=== PATIENT | female | born 1955 | race Caucasian/White ===

== ENCOUNTER 2017-05-03 07:21 | Day surgery (SDC) | payer OTHER ==
[2017-05-02 12:53] VITALS: BMI 34.0
[~2017-05-03 07:21] MED LIST: LACTATED RINGERS 1,000 ML IV SCH; LIDOCAINE 1% 20 ML VIAL (10MG/ML) FOR IV START INTRADERMA PRN
[2017-05-03 09:37] VITALS: RESP 16; TEMP 98.2
[2017-05-03] MEDS ORDERED: DEXTROSE 50%-WATER 50 ML SYRINGE IVP ONE (10:00)
[2017-05-03] MEDS ORDERED: LIDOCAINE 1% INJ 10MG/ML (20 ML MDV) ONE (10:04)
[2017-05-03] MEDS ORDERED: PROPOFOL 10 MG/ML 20 ML VIAL IV ONE (10:04)
[2017-05-03 10:06] LABS: Glucose,Whole Blood 65 mg/dL (75-99)
--- NOTE | 2017-05-03 10:08 | P.GSHP ---
History of Present Illness H&P Date: 05/03/17 Chief Complaint: GERD, screening colonoscopy This is a 62-year-old female who presents today for EGD and screening colonoscopy. She's had issues with GERD. His colonoscopy was over 10 years ago. Past Medical History Past Medical History: Diabetes Mellitus, GERD/Reflux, Hyperlipidemia, Hypertension, Renal Disease Additional Past Medical History / Comment(s): abdominal pain History of Any Multi-Drug Resistant Organisms: None Reported Past Surgical History: Cholecystectomy Additional Past Surgical History / Comment(s): "left shoulder surgery for a tendon." Past Anesthesia/Blood Transfusion Reactions: No Reported Reaction Smoking Status: Former smoker - Past Family History Mother Family Medical History: Cancer Additional Family Medical History / Comment(s): breast Father Family Medical History: CVA/TIA, Myocardial Infarction (NH) Brother(s) Family Medical History: Congestive Heart Failure (CHF) Additional Family Medical History / Comment(s): CABG Medications and Allergies Home Medications Medication Instructions Recorded Confirmed Type Atorvastatin [Lipitor] 20 mg PO DAILY 05/02/17 05/03/17 History Calcium Polycarbophil [Fibercon] 1 tab PO DAILY 05/02/17 05/03/17 History Fenofibrate,Micronized 200 mg PO DAILY 05/02/17 05/03/17 History [Fenofibrate] Ferrous Sulfate [Feosol] 325 mg PO DAILY 05/02/17 05/03/17 History Omeprazole [Omeprazole] 20 mg PO BID 05/02/17 05/03/17 History Pioglitazone HCl 15 mg PO DAILY 05/02/17 05/03/17 History Allergies Allergy/AdvReac Type Severity Reaction Status Date / Time sulfamethoxazole Allergy Unknown Verified 05/02/17 12:39 [From Bactrim] trimethoprim [From Bactrim] Allergy Unknown Verified 05/02/17 12:39 Surgical - Exam Vital Signs Temp Pulse Resp BP Pulse Ox 98.2 F 103 H 16 130/60 100 05/03/17 09:32 05/03/17 09:32 05/03/17 09:32 05/03/17 09:32 05/03/17 09:32 - General well developed, no distress - Eyes PERRL - ENT normal pinna - Neck no masses - Respiratory normal expansion - Cardiovascular Rhythm: regular - Abdomen Abdomen: soft, non tender Assessment and Plan Assessment: GERD we'll perform EGD. We'll also perform screening colonoscopy.
--- NOTE | 2017-05-03 10:33 | P.OP ---
Date of Procedure: 05/03/17 Preoperative Diagnosis: . GERD Screening colonoscopy Postoperative Diagnosis: Antral gastritis Hiatal hernia Mild esophagitis Normal colon Procedure(s) Performed: EGD Colonoscopy Anesthesia: MAC Surgeon: Reji Rangel Pathology: other (Antrum, esophagus) Condition: stable Disposition: PACU Description of Procedure: PROCEDURE: The patient was placed on the endoscopy table in the lateral position. Digital rectal examination was performed which revealed no abnormalities. s. Flexible colonoscope was then placed in the patient's anus and passed throughout the entire colon. The ileocecal valve was visualized. The cecum, ascending, transverse, descending and sigmoid colon were normal. The rectum was normal as well. There were no masses, polyps or diverticula noted in the entire colon. Next, the gastroscope placed oropharynx passed in the esophagus into the stomach. The scope some placed through the pylorus. The first and second portion of the duodenum appeared normal. Scope was then brought back the antrum and this appeared mildly inflamed. A biopsies was performed. The scope was then retroflexed and remainder stomach appeared normal. There was a hiatal hernia seen. The GE junction was at 38 cm. The distal esophagus appeared mildly inflamed a biopsies performed. The proximal esophagus appeared normal. Scope was withdrawn for patient
[2017-05-03 10:56] LABS: Glucose,Whole Blood 127 mg/dL (75-99)
[2017-05-03 11:12] VITALS: BP 117/59; PULSE 100
== END 2017-05-03 11:44 | disposition home or self-care (01) ==
LOC: ORWHC2ENDO 07:21
PROVIDERS: ATTEND Surgery
DX: Z12.11 Encounter for screening for malignant neoplasm of colon (principal); K21.0 Gastro-esophageal reflux disease with esophagitis; K29.50 Unspecified chronic gastritis without bleeding; K44.9 Diaphragmatic hernia without obstruction or gangrene; I12.9 Hypertensive chronic kidney disease with stage 1 through stage 4 chronic kidney disease, or unspecified chronic kidney disease; E11.22 Type 2 diabetes mellitus with diabetic chronic kidney disease; N18.9 Chronic kidney disease, unspecified; Z79.84 Long term (current) use of oral hypoglycemic drugs; E78.5 Hyperlipidemia, unspecified; Z87.891 Personal history of nicotine dependence; Z79.899 Other long term (current) drug therapy; Z88.2 Allergy status to sulfonamides
CPT/HCPCS: 88305; 88342; 43239; J2001; J2704; G0121

== ENCOUNTER 2017-05-10 08:17 | Inpatient (IN) | payer OTHER ==
[2017-05-10] MEDS ORDERED: ASPIRIN 81 MG PO STA (08:36)
[2017-05-10] MEDS ORDERED: MORPHINE SULFATE 10 MG/ML SYRINGE IV STA (08:36)
[2017-05-10] MEDS ORDERED: NITROGLYCERIN OINT 1 INCH/GM PACKET TOPICAL STA (08:36)
--- NOTE | 2017-05-10 08:40 | ED ---
General Adult HPI <Joao Vieira - Last Filed: 05/10/17 10:36> - General Source: patient, RN notes reviewed, old records reviewed Mode of arrival: wheelchair Limitations: no limitations <Antonio Burgos - Last Filed: 05/10/17 11:11> - General Chief complaint: Chest Pain Stated complaint: norma, took 3 nitro Time Seen by Provider: 05/10/17 08:28 - History of Present Illness Initial comments: Patient is a 62-year-old female who presents emergency room today with a chief complaint of chest pain off-and-on over the last week. She does admit that she began having chest pain again last night. She states she was at her family doctor yesterday was actually prescribe her some nitro. She states she woke one nitro last night was able go to bed. States woke up this morning again with increased chest pain. States she's taken total of 3 nitro with no relief of the symptoms. Was advised if the pain was unresolved with the nitro that she should come to the hospital. Patient states that it as a "sharp" type pain located in the chest feels it radiate up into her neck both sides. Patient currently rates it a 10/10 along with a headache. Patient denies any difficult. Her symptoms. Patient does admit to a family history of cardiac disease. Patient denies any recent fever, chills, shortness of breath, chest pain, back pain, abdominal pain, nausea or vomiting, numbness or tingling, dysuria or hematuria, constipation or diarrhea, headaches or visual changes, or any other complaints. (Antonio Burgos) - Related Data Home Medications Medication Instructions Recorded Confirmed Fenofibrate,Micronized 200 mg PO DAILY 05/02/17 05/10/17 [Fenofibrate] Ferrous Sulfate [Feosol] 325 mg PO DAILY 05/02/17 05/10/17 Pioglitazone HCl 15 mg PO DAILY 05/02/17 05/10/17 Aspirin/Acetaminophen/Caffeine 1 tab PO BID PRN 05/10/17 05/10/17 [Excedrin Migraine Caplet] Cyclobenzaprine [Flexeril] 10 mg PO HS 05/10/17 05/10/17 Lisinopril [Zestril] 5 mg PO DAILY 05/10/17 05/10/17 Metaxalone [Skelaxin] 800 mg PO TID PRN 05/10/17 05/10/17 Nitroglycerin [Nitroglycerin] 0.4 mg PO Q5M PRN 05/10/17 05/10/17 Sucralfate [Carafate] 1 gram PO BID 05/10/17 05/10/17 buPROPion HCL [Wellbutrin SR] 150 mg PO HS 05/10/17 05/10/17 Allergies Allergy/AdvReac Type Severity Reaction Status Date / Time sulfamethoxazole Allergy Unknown Verified 05/10/17 08:57 [From Bactrim] trimethoprim [From Bactrim] Allergy Unknown Verified 05/10/17 08:57 Review of Systems ROS Other: All systems not noted in ROS Statement are negative. <Joao Vieira - Last Filed: 05/10/17 10:36> ROS Other: All systems not noted in ROS Statement are negative. <Antonio Burgos - Last Filed: 05/10/17 11:11> ROS Statement: Those systems with pertinent positive or pertinent negative responses have been documented in the HPI. Past Medical History Past Medical History: Diabetes Mellitus, GERD/Reflux, Hyperlipidemia, Hypertension, Renal Disease Additional Past Medical History / Comment(s): abdominal pain History of Any Multi-Drug Resistant Organisms: None Reported Past Surgical History: Cholecystectomy Additional Past Surgical History / Comment(s): "left shoulder surgery for a tendon." Past Anesthesia/Blood Transfusion Reactions: No Reported Reaction Past Psychological History: No Psychological Hx Reported Smoking Status: Former smoker Past Alcohol Use History: None Reported Past Drug Use History: None Reported - Past Family History Mother Family Medical History: Cancer Additional Family Medical History / Comment(s): breast Father Family Medical History: CVA/TIA, Myocardial Infarction (MD) Brother(s) Family Medical History: Congestive Heart Failure (CHF) Additional Family Medical History / Comment(s): CABG <Antonio Burgos - Last Filed: 05/10/17 11:11> General Exam <Joao Vieira - Last Filed: 05/10/17 10:36> Limitations: no limitations <Antonio Burgos - Last Filed: 05/10/17 11:11> - General Exam Comments Initial Comments: General: The patient is awake and alert, in no distress, and does not appear acutely ill. Eye: Pupils are equal, round and reactive to light, extra-ocular movements are intact. No nystagmus. There is normal conjunctiva bilaterally. No signs of icterus. Ears, nose, mouth and throat: There are moist mucous membranes and no oral lesions. Neck: The neck is supple, there is no tenderness or JVD. Cardiovascular: There is a regular rate and rhythm. No murmur, rub or gallop is appreciated. Respiratory: Lungs are clear to auscultation, respirations are non-labored, breath sounds are equal. No wheezes, stridor, rales, or rhonchi. Patient reproduced on palpation to the anterior chest wall. Gastrointestinal: Soft, non-distended, non-tender abdomen without masses or organomegaly noted. There is no rebound or guarding present. No CVA tenderness. Bowel sounds are unremarkable. Musculoskeletal: Normal ROM, no tenderness. Strength 5/5. Sensation intact. Pulses equal bilaterally 2+. Neurological: A&O x 3. CN II-XII intact, There are no obvious motor or sensory deficits. Coordination appears grossly intact. Speech is normal. Skin: Skin is warm and dry and no rashes or lesions are noted. Psychiatric: Cooperative, appropriate mood & affect, normal judgment. (Antonio Burgos) Course <Joao Vieira - Last Filed: 05/10/17 10:36> <Antonio Burgos - Last Filed: 05/10/17 11:11> Vital Signs 05/10/17 05/10/17 05/10/17 08:22 09:01 09:26 Temperature 97.7 F Pulse Rate 88 76 Respiratory 18 20 18 Rate Blood Pressure 135/63 130/60 O2 Sat by Pulse 99 99 Oximetry 05/10/17 05/10/17 10:30 11:00 Temperature Pulse Rate 82 82 Respiratory 18 18 Rate Blood Pressure 140/66 146/70 O2 Sat by Pulse 100 100 Oximetry - Reevaluation(s) Reevaluation #1: 05/10/17 10:36 PA supervision: I did do a [id number] evaluation of this patient. Patient does present with complaint claims intermittent chest pain and does seem to get relieved with nitroglycerin. Additionally she does have a strong family history of heart disease with multiple family members. Patient's lungs are clear heart regular with no murmurs at this time no evidence of any peripheral vascular abnormalities at this exam. Case will be discussed with Dr. Owens the patient will be admitted. (Joao Vieira) EKG Findings - EKG Comments: EKG Findings:: EKG performed at 0837: A 12-lead EKG was performed and interpreted by me as showing the following: Rate is 78, and rhythm is normal sinus. There are normal QRS complexes and normal R-wave progression. ST segments have no elevation or depression, and WI segments appear normal. <Antonio Burgos - Last Filed: 05/10/17 11:11> Medical Decision Making - Lab Data Result diagrams: 05/10/17 08:50 05/10/17 08:50 <Joao Vieira - Last Filed: 05/10/17 10:36> - Lab Data Result diagrams: 05/10/17 08:50 05/10/17 08:50 <Antonio Burgos - Last Filed: 05/10/17 11:11> - Lab Data Lab Results 05/10/17 05/10/17 05/10/17 Range/Units 08:50 08:50 08:50 WBC 3.5 L (3.8-10.6) k/uL RBC 3.56 L (3.80-5.40) m/uL Hgb 11.4 (11.4-16.0) gm/dL Hct 36.0 (34.0-46.0) % MCV 101.1 H (80.0-100.0) fL MCH 31.9 (25.0-35.0) pg MCHC 31.5 (31.0-37.0) g/dL RDW 14.0 (11.5-15.5) % Plt Count 252 (150-450) k/uL Neutrophils % 62 % Lymphocytes % 24 % Monocytes % 8 % Eosinophils % 3 % Basophils % 1 % Neutrophils # 2.2 (1.3-7.7) k/uL Lymphocytes # 0.8 L (1.0-4.8) k/uL Monocytes # 0.3 (0-1.0) k/uL Eosinophils # 0.1 (0-0.7) k/uL Basophils # 0.0 (0-0.2) k/uL Macrocytosis Slight PT (9.0-12.0) sec INR (<1.2) APTT (22.0-30.0) sec Sodium 142 (137-145) mmol/L Potassium 4.6 (3.5-5.1) mmol/L Chloride 109 H (98-107) mmol/L Carbon Dioxide 24 (22-30) mmol/L Anion Gap 9 mmol/L BUN 33 H (7-17) mg/dL Creatinine 1.44 H (0.52-1.04) mg/dL Est GFR (MDRD) Af Amer 45 (>60 ml/min/1.73 sqM) Est GFR (MDRD) Non-Af 37 (>60 ml/min/1.73 sqM) Glucose 108 H (74-99) mg/dL Calcium 9.8 (8.4-10.2) mg/dL Magnesium 1.1 L (1.6-2.3) mg/dL Total Bilirubin 0.5 (0.2-1.3) mg/dL AST 23 (14-36) U/L ALT 35 (9-52) U/L Alkaline Phosphatase 35 L (38-126) U/L Total Creatine Kinase 120 (30-135) U/L CK-MB (CK-2) 1.1 (0.0-2.4) ng/mL CK-MB (CK-2) Rel Index 0.9 Troponin I <0.012 (0.000-0.034) ng/mL Total Protein 6.4 (6.3-8.2) g/dL Albumin 3.9 (3.5-5.0) g/dL 05/10/17 Range/Units 08:50 WBC (3.8-10.6) k/uL RBC (3.80-5.40) m/uL Hgb (11.4-16.0) gm/dL Hct (34.0-46.0) % MCV (80.0-100.0) fL MCH (25.0-35.0) pg MCHC (31.0-37.0) g/dL RDW (11.5-15.5) % Plt Count (150-450) k/uL Neutrophils % % Lymphocytes % % Monocytes % % Eosinophils % % Basophils % % Neutrophils # (1.3-7.7) k/uL Lymphocytes # (1.0-4.8) k/uL Monocytes # (0-1.0) k/uL Eosinophils # (0-0.7) k/uL Basophils # (0-0.2) k/uL Macrocytosis PT 11.4 (9.0-12.0) sec INR 1.1 (<1.2) APTT 23.1 (22.0-30.0) sec Sodium (137-145) mmol/L Potassium (3.5-5.1) mmol/L Chloride (98-107) mmol/L Carbon Dioxide (22-30) mmol/L Anion Gap mmol/L BUN (7-17) mg/dL Creatinine (0.52-1.04) mg/dL Est GFR (MDRD) Af Amer (>60 ml/min/1.73 sqM) Est GFR (MDRD) Non-Af (>60 ml/min/1.73 sqM) Glucose (74-99) mg/dL Calcium (8.4-10.2) mg/dL Magnesium (1.6-2.3) mg/dL Total Bilirubin (0.2-1.3) mg/dL AST (14-36) U/L ALT (9-52) U/L Alkaline Phosphatase (38-126) U/L Total Creatine Kinase (30-135) U/L CK-MB (CK-2) (0.0-2.4) ng/mL CK-MB (CK-2) Rel Index Troponin I (0.000-0.034) ng/mL Total Protein (6.3-8.2) g/dL Albumin (3.5-5.0) g/dL Disposition <Joao Vieira - Last Filed: 05/10/17 10:36> Time of Disposition: 10:30 <Antonio Burgos - Last Filed: 05/10/17 11:11> Clinical Impression: Chest pain Disposition: [facility]MITT[facility] Condition: Stable Referrals: Karen Snowden DO [Primary Care Provider] - 1-2 days
[2017-05-10 09:09] LABS: Basophils % (A) 1 %; CH 31.3; CHCM 31.1; Eosinophils # (A) 0.1 k/uL (0-0.7); Eosinophils % (A) 3 %; HDW 2.05; HGB 11.4 gm/dL (11.4-16.0); Luc # (Auto) 0.06; Luc % (Auto) 2; Lymphocytes # (A) 0.8 k/uL (1.0-4.8); Lymphocytes % (A) 24 %; MCH 31.9 pg (25.0-35.0); MCHC 31.5 g/dL (31.0-37.0); MCV 101.1 fL (80.0-100.0); Macrocytosis Slight; Mean Platelet Volume 7.7; Monocytes # (A) 0.3 k/uL (0-1.0); Monocytes % (A) 8 %; Neutrophils # (A) 2.2 k/uL (1.3-7.7); Neutrophils % (A) 62 %; RBC 3.56 m/uL (3.80-5.40); WBC 3.5 k/uL (3.8-10.6); WBC (Perox) 3.77
[2017-05-10 09:19] LABS: Calcium 9.8 mg/dL (8.4-10.2); INR 1.1 (<1.2); Magnesium 1.1 mg/dL (1.6-2.3); Partial Thromboplastin Time 23.1 sec (22.0-30.0); Potassium 4.6 mmol/L (3.5-5.1); Prothrombin Time 11.4 sec (9.0-12.0); Total Bilirubin 0.5 mg/dL (0.2-1.3); Total Protein 6.4 g/dL (6.3-8.2)
--- NOTE | 2017-05-10 09:19 | XR ---
EXAMINATION TYPE: XR chest 2V DATE OF EXAM: 05/10/2017 COMPARISON: Prior exam 04/07/2017 HISTORY: Chest pain TECHNIQUE: Frontal and lateral views of the chest are obtained. FINDINGS: There are overlying cardiac leads. Patient is rotated, there may be scoliotic curvature to the thoracic spine. There is no focal air space opacity, pleural effusion, or pneumothorax seen. The cardiac silhouette size is within normal limits. The osseous structures are intact. IMPRESSION: No acute cardiopulmonary process.
[2017-05-10 09:44] LABS: Creatine Kinase 120 U/L (30-135)
[2017-05-10 09:57] LABS: Creatine Kinase MB 1.1 ng/mL (0.0-2.4); Troponin I <0.012 ng/mL (0.000-0.034)
[2017-05-10] MEDS ORDERED: HEPARIN SODIUM,PORCINE 5,000 UNIT/ML 1 ML VIAL IV ONE (11:09)
[2017-05-10] MEDS ORDERED: SODIUM CHLORIDE 0.9% 1,000 ML IV ONE (11:09)
[2017-05-10] MEDS: HEPARIN SODIUM,PORCINE/D5W PMX 25,000 UNIT in DEXTROSE/WATER 1 500ML.BAG IV SCH (11:39)
[2017-05-10] MEDS: MAGNESIUM SULFATE-D5W PMX 1 GM in DEXTROSE/WATER 1 100ML.BAG IVPB SCH ×2 (13:56→15:01)
[2017-05-10] MEDS: NITROGLYCERIN OINT 1 INCH/GM PACKET TOPICAL SCH ×2 (13:59→18:13)
--- NOTE | 2017-05-10 13:59 | P.HPIM ---
History of Present Illness H&P Date: 05/10/17 Chief Complaint: Intermittent chest pain 1 week This is a 62-year-old female, patient of [facility]. She has a known past medical history hypertension, diabetes mellitus, hyperlipidemia, chronic kidney disease, GERD, former smoker, and family history of heart disease. She has 2 brothers who had heart attacks one was fatal. And both her mother and father have a history of heart disease. Patient presents to the emergency room with complaints of intermittent chest pain for the past week may be in to 2 weeks. When asked where the pain is located patient points to the epigastric area and reports that the pain goes up into the chest neck in all into the head. She reports that her head feels like it's been explode. She says she has checked her blood pressures at home and reports that they have not been high. She takes lisinopril at home. She was given nitro by the PA at her PCP office. Patient took a nitro last night and then took 2 this morning. She had some relief but was still having more pain than usual. Came into the emergency room for further evaluation and treatment. The first troponin was negative. EKG shows a normal sinus rhythm. She was started on IV heparin in the emergency room. Cardiology has been consulted. Reports her last stress test was about 10 years ago and was told that it was normal. Also, patient had a recent EGD and colonoscopy for acid reflux symptoms. Results show antral gastritis, hiatal hernia, mild esophagitis and a normal colon. Procedures were completed with Dr. Rangel on 05/03/2017. Patient also admits to having some shortness of breath and nausea with her chest pain. Denies any diaphoresis. Denies any actual vomiting. Denies any dizziness or lightheadedness. Denies any significant bowel changes. Denies any urinary symptoms. Reports that symptoms do not really worsen with food. 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 History of Any Multi-Drug Resistant Organisms: None Reported Past Surgical History: Cholecystectomy, Orthopedic Surgery Additional Past Surgical History / Comment(s): 04/2017 EGD/colonoscopy, past EGD /colonoscopy, "left shoulder surgery for a tendon." Past Anesthesia/Blood Transfusion Reactions: No Reported Reaction Smoking Status: Former smoker - Past Family History Mother Family Medical History: Cancer Additional Family Medical History / Comment(s): breast cancer, pacemaker. Father Family Medical History: CVA/TIA, Myocardial Infarction (HI) Additional Family Medical History / Comment(s): Pt does not know at what age father had HI Brother(s) Family Medical History: Congestive Heart Failure (CHF) Additional Family Medical History / Comment(s): CABG Medications and Allergies Home Medications Medication Instructions Recorded Confirmed Type Fenofibrate,Micronized 200 mg PO DAILY 05/02/17 05/10/17 History [Fenofibrate] Ferrous Sulfate [Feosol] 325 mg PO DAILY 05/02/17 05/10/17 History Pioglitazone HCl 15 mg PO DAILY 05/02/17 05/10/17 History Aspirin/Acetaminophen/Caffeine 1 tab PO BID PRN 05/10/17 05/10/17 History [Excedrin Migraine Caplet] Cyclobenzaprine [Flexeril] 10 mg PO HS 05/10/17 05/10/17 History Lisinopril [Zestril] 5 mg PO DAILY 05/10/17 05/10/17 History Metaxalone [Skelaxin] 800 mg PO TID PRN 05/10/17 05/10/17 History Nitroglycerin [Nitroglycerin] 0.4 mg PO Q5M PRN 05/10/17 05/10/17 History Sucralfate [Carafate] 1 gram PO BID 05/10/17 05/10/17 History buPROPion HCL [Wellbutrin SR] 150 mg PO HS 05/10/17 05/10/17 History Allergies Allergy/AdvReac Type Severity Reaction Status Date / Time sulfamethoxazole Allergy Unknown Verified 05/10/17 08:57 [From Bactrim] trimethoprim [From Bactrim] Allergy Unknown Verified 05/10/17 08:57 Physical Exam Vitals: Vital Signs Temp Pulse Resp BP Pulse Ox 05/10/17 12:57 82 18 152/67 99 05/10/17 12:45 97.4 F L 84 18 152/67 97 11/16/17 11:58 79 18 164/72 98 05/10/17 11:00 82 18 146/70 100 05/10/17 10:30 82 18 140/66 100 05/10/17 09:26 76 18 130/60 99 05/10/17 09:01 20 05/10/17 08:22 97.7 F 88 18 135/63 99 Intake and Output 05/09/17 05/10/17 05/10/17 22:59 06:59 14:59 Other: Weight 81.647 kg Patient Weight 05/11/17 06:59 Weight 81.647 kg Head normocephalic Neck supple Lungs clear to auscultation bilaterally no wheezing or crackles Heart regular rate and rhythm S1-S2, no rub or gallop. Tenderness with palpation of the chest wall. Tenderness of the epigastric area Abdomen is soft tenderness epigastric area nondistended positive bowel sounds no hepatosplenomegaly Extremities no edema Neuro alert and orientated to 3 Results CBC & Chem 7: 05/10/17 08:50 05/10/17 08:50 Labs: Abnormal Lab Results - Last 24 Hours (Table) 05/10/17 05/10/17 Range/Units 08:50 08:50 WBC 3.5 L (3.8-10.6) k/uL RBC 3.56 L (3.80-5.40) m/uL MCV 101.1 H (80.0-100.0) fL Lymphocytes # 0.8 L (1.0-4.8) k/uL Chloride 109 H (98-107) mmol/L BUN 33 H (7-17) mg/dL Creatinine 1.44 H (0.52-1.04) mg/dL Glucose 108 H (74-99) mg/dL Magnesium 1.1 L (1.6-2.3) mg/dL Alkaline Phosphatase 35 L (38-126) U/L Thrombosis Risk Factor Assmnt - Choose All That Apply Any of the Below Risk Factors Present?: Yes Each Factor Represents 1 point: Obesity (BMI >25) Other Risk Factors: Yes Each Risk Factor Represents 2 Points: Age 61-74 years Other congenital or acquired thrombophilia - If yes, enter type in comment: No Thrombosis Risk Factor Assessment Total Risk Factor Score: 3 Thrombosis Risk Factor Assessment Level: Moderate Risk Assessment and Plan Assessment: 1. Chest pain: First troponin is negative. EKG showing a normal sinus rhythm. Patient has been placed on IV heparin and full aspirin. Cardiology has been consulted. Patient does have cardiac risk factors with hyperlipidemia, hypertension, diabetes mellitus, former smoker and family history of heart disease. However, patient does have reproducible chest pain with palpation of the chest wall also tenderness in the epigastric area. Symptoms could be musculoskeletal. Will have patient evaluated by cardiology service and await their further recommendations. 2. Epigastric pain: Check amylase and lipase. Patient had recent EGD and colonoscopy on 05/13/[address] Rangel. Results showed antral gastritis, hiatal hernia and mild esophagitis with a normal colonoscopy. I will start patient on Protonix 40 mg daily. Monitor symptoms. 3. Essential hypertension: Restart patient's lisinopril 5 mg daily now 4. Hypomagnesemia: Give magnesium sulfate 2 g 1. Repeat magnesium level in a.m. 5. Hyperlipidemia 6. GERD: Continue Protonix 7. Diabetes mellitus type 2: Hold oral hypoglycemic. Add Humalog sliding scale coverage. Check hemoglobin A1c 8. Chronic kidney disease stage 3 GI prophylaxis Protonix and DVT prophylaxis IV heparin Time with Patient: Greater than 30 (Greater than 50% of the total time spent in counseling and coordination of care.I performed an examination of the patient and discussed their management with the physician Director Of Broadcast. I have reviewed the Physician Director Of [employer]cast's notes and agree with the documented findings and plan of care)
[2017-05-10] MEDS ORDERED: CYCLOBENZAPRINE 10 MG TAB PO PRN (14:00)
--- NOTE | 2017-05-10 14:07 | P.CRDCN ---
History of Present Illness Consult date: 05/10/17 History of present illness: This is a 62-year-old female with past medical history significant for diabetes mellitus, gastroesophageal reflux disease, hyperlipidemia, hypertension and renal disease. She denies history of coronary artery disease and has never seen a district commercial superintendent as an outpatient for any reason. She recalls having a stress test approximately 10+ years ago in the hospital. Those records have been reviewed. We have been asked to see her in consultation for complaints of chest heaviness that started yesterday morning. She woke up at her usual time with a headache that was similar to migraines she typically gets. As the day went on she started having heaviness in her chest, mid-sternal region with radiation to the back and neck at times. The pain persisted all day until she went to her already scheduled well visit with her PCP. At that time they ordered an outpatient stress echocardiogram and gave her a prescription for SL nitroglycerin. She woke up again this morning with the same pain and tried taking the nitro x3 with no relief. She had associated nausea and vomited twice. She denies associated shortness of breath, dizziness, palpitations or diaphoresis. At the time of my exam she continues to c/o ongoing chest heaviness. The pain is reproducible and is worse in the epigastric region. She also says she has been seeing a disease case manager for evaluation of chronic abdominal pain and bloating. She underwent a colonoscopy last week, results in the computer reveal hiatal hernia and chronic esophagitis and gastritis. She is a former smoker, quit 10 years ago and has significant family history of heart disease with mother, father and both brothers having had heart premature heart disease. EKG reveals sinus mechanism with no acute ST or T-wave abnormalities. Chest xray negative for an acute cardiopulmonary process. Cardiac enzymes negative x1. Hgb 11.4, plt 252, BUN 33, Cr 1.44, potassium 4.6, magnesium 1.1. Blood pressure 152/67 with heart rate 84. Current cardiac medications include lisinopril 5 mg daily and fenofibrate 200 mg daily. Review of Systems CONSTITUTIONAL: Denies fever. Denies chills. EYES: Denies blurred vision. Denies vision changes. Denies eye pain. EARS, NOSE, MOUTH & THROAT: Complains of headache. Denies sore throat. Denies ear pain. CARDIOVASCULAR: Complains of midsternal and epigastric heaviness and tenderness. Denies shortness of breath. Denies orthopnea. Denies PND. Denies palpitations. RESPIRATORY: Complains of chronic dry cough. GASTROINTESTINAL: Denies abdominal pain. Denies diarrhea. Denies constipation. Complains of nausea with one episode of vomiting. MUSCULOSKELETAL: Denies myalgias. INTEGUMENTARY: Denies pruitis. Denies rash. NEUROLOGIC: Denies numbness. Denies tingling. Denies weakness. PSYCHIATRIC: Denies anxiety. Denies depression. ENDOCRINE: Denies fatigue. Denies weight change. Denies polydipsia. Denies polyurina. GENITOURINARY: Denies burning, hematuria or urgency with micturation. HEMATOLOGIC: Denies history of anemia. Denies bleeding. 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 History of Any Multi-Drug Resistant Organisms: None Reported Past Surgical History: Cholecystectomy, Orthopedic Surgery Additional Past Surgical History / Comment(s): 04/2017 EGD/colonoscopy, past EGD /colonoscopy, "left shoulder surgery for a tendon." Past Anesthesia/Blood Transfusion Reactions: No Reported Reaction Smoking Status: Former smoker - Past Family History Mother Family Medical History: Cancer Additional Family Medical History / Comment(s): breast cancer, pacemaker. Father Family Medical History: CVA/TIA, Myocardial Infarction ([place]) Additional Family Medical History / Comment(s): Pt does not know at what age father had [place] Brother(s) Family Medical History: Congestive Heart Failure (CHF) Additional Family Medical History / Comment(s): CABG Medications and Allergies Home Medications Medication Instructions Recorded Confirmed Type Fenofibrate,Micronized 200 mg PO DAILY 05/02/17 05/10/17 History [Fenofibrate] Ferrous Sulfate [Feosol] 325 mg PO DAILY 05/02/17 05/10/17 History Pioglitazone HCl 15 mg PO DAILY 05/02/17 05/10/17 History Aspirin/Acetaminophen/Caffeine 1 tab PO BID PRN 05/10/17 05/10/17 History [Excedrin Migraine Caplet] Cyclobenzaprine [Flexeril] 10 mg PO HS 05/10/17 05/10/17 History Lisinopril [Zestril] 5 mg PO DAILY 05/10/17 05/10/17 History Metaxalone [Skelaxin] 800 mg PO TID PRN 05/10/17 05/10/17 History Nitroglycerin [Nitroglycerin] 0.4 mg PO Q5M PRN 05/10/17 05/10/17 History Sucralfate [Carafate] 1 gram PO BID 05/10/17 05/10/17 History buPROPion HCL [Wellbutrin SR] 150 mg PO HS 05/10/17 05/10/17 History Allergies Allergy/AdvReac Type Severity Reaction Status Date / Time sulfamethoxazole Allergy Unknown Verified 05/10/17 08:57 [From Bactrim] trimethoprim [From Bactrim] Allergy Unknown Verified 05/10/17 08:57 Physical Exam Vitals: Vital Signs Temp Pulse Resp BP Pulse Ox 05/10/17 12:57 82 18 152/67 99 05/10/17 12:45 97.4 F L 84 18 152/67 97 05/10/17 11:58 79 18 164/72 98 05/10/17 11:00 82 18 146/70 100 05/10/17 10:30 82 18 140/66 100 05/10/17 09:26 76 18 130/60 99 05/10/17 09:01 20 05/10/17 08:22 97.7 F 88 18 135/63 99 Intake and Output 05/09/17 05/10/17 05/10/17 22:59 06:59 14:59 Other: Weight 81.647 kg Patient Weight 05/11/17 06:59 Weight 81.647 kg GENERAL: This is a 62-year-old female in no apparent distress at the time of my examination. Obese. HEENT: Head is atraumatic, normocephalic. Pupils are equal, round. Sclerae anicteric. Conjunctivae are clear. Mucous membranes of the mouth are moist. Neck is supple. There is no jugular venous distention. No carotid bruit is heard. LUNGS: Clear to auscultation no wheezes, rales or rhonchi. Positive epigastric and midsternal chest wall tenderness is noted on palpation. No change in discomfort with deep breathing. HEART: Regular rate and rhythm without murmurs, rubs or gallops. S1 and S2 heard. ABDOMEN: Soft, epigastric tenderness. Bowel sounds are heard. No organomegaly noted. EXTREMITIES: 2+ peripheral pulses with no evidence of peripheral edema and no calf tenderness noted. NEUROLOGIC: Patient is awake, alert and oriented x3. Results 05/10/17 08:50 05/10/17 08:50 Cardiac Enzymes 05/10/17 05/10/17 Range/Units 08:50 08:50 AST 23 (14-36) U/L CK-MB (CK-2) 1.1 (0.0-2.4) ng/mL Troponin I <0.012 (0.000-0.034) ng/mL Coagulation 05/10/17 Range/Units 08:50 PT 11.4 (9.0-12.0) sec APTT 23.1 (22.0-30.0) sec CBC 05/10/17 Range/Units 08:50 WBC 3.5 L (3.8-10.6) k/uL RBC 3.56 L (3.80-5.40) m/uL Hgb 11.4 (11.4-16.0) gm/dL Hct 36.0 (34.0-46.0) % Plt Count 252 (150-450) k/uL Comprehensive Metabolic Panel 05/10/17 Range/Units 08:50 Sodium 142 (137-145) mmol/L Potassium 4.6 (3.5-5.1) mmol/L Chloride 109 H (98-107) mmol/L Carbon Dioxide 24 (22-30) mmol/L BUN 33 H (7-17) mg/dL Creatinine 1.44 H (0.52-1.04) mg/dL Glucose 108 H (74-99) mg/dL Calcium 9.8 (8.4-10.2) mg/dL AST 23 (14-36) U/L ALT 35 (9-52) U/L Alkaline Phosphatase 35 L (38-126) U/L Total Protein 6.4 (6.3-8.2) g/dL Albumin 3.9 (3.5-5.0) g/dL Current Medications Generic Name Dose Route Start Last Admin Trade Name Freq PRN Reason Stop Dose Admin Aspirin 325 mg 05/11/17 09:00 Aspirin PO DAILY [facility] Bupropion HCl 150 mg 05/10/17 21:00 Wellbutrin Sr PO HS [facility] Cyclobenzaprine HCl 10 mg 05/10/17 21:00 Flexeril PO HS MARK Cyclobenzaprine HCl 10 mg 05/10/17 14:00 Flexeril PO BID PRN FOOT PAIN Fenofibrate 160 mg 05/11/17 09:00 Lofibra PO DAILY [facility] Ferrous Sulfate 325 mg 05/11/17 09:00 Feosol PO DAILY [facility] Heparin Sodium/Dextrose 25,000 500 mls @ 19.59 mls/hr 05/10/17 11:15 11:39 unit/ IV Solution IV 12 units/kg/hr .Q24H MARK 19.59 mls/hr Protocol Administration 12 UNITS/KG/HR Sodium Chloride 1,000 mls @ 75 mls/hr 05/10/17 11:09 05/10/17 11:38 Saline 0.9% IV 05/11/17 00:28 20 mls/hr .[id number] ONE Administration Magnesium Sulfate/Dextrose 1 100 mls @ 100 mls/hr 05/10/17 13:00 gm/ IV Solution IVPB 05/10/17 14:59 Q1H MARK Lisinopril 5 mg 05/11/17 09:00 Zestril PO DAILY [facility] Nitroglycerin 1 inch 05/10/17 13:00 Nitro-Bid Oint TOPICAL Q6HR [facility] Sucralfate 1 gm 05/10/17 21:00 Carafate PO BID [facility] Intake and Output 05/09/17 05/10/17 05/10/17 22:59 06:59 14:59 Other: Weight 81.647 kg Patient Weight 05/11/17 06:59 Weight 81.647 kg 05/10/17 08:50 05/10/17 08:50 Assessment and Plan Assessment: ASSESSMENT 1. Unstable angina, atypical presentation with multiple risk factors. HTN, DM, history of tobacco use, family history, obesity. 2. Essential hypertension 3. Hyperlipidemia 4. Chronic kidney disease, stage 3a 5. Diabetes mellitus 6. Obesity, BMI 34 7. Hypomagnesemia, 1.1 currently being replaced per medicine team PLAN Continue to obtain serial EKG's and cardiac enzymes. Heparin should be continued until an acute coronary event has been ruled out. Obtain 2D echocardiogram and doppler study to assess cardiac structure and function. Normal saline infusion at 75 cc/hr. Replace magnesium per protocol. Maalox 30 ml x1 now. Repeat basic metabolic panel and magnesium in the morning. If an acute coronary event has been ruled out we will proceed with a lexiscan stress test tomorrow. She should be kept NPO after midnight tonight. Further recommendations will be based upon clinical course. Thank you kindly for this consultation. Nurse Practitioner note has been reviewed, I agree with a documented findings and plan of care. Patient was seen and examined.
[2017-05-10] MEDS ORDERED: MAG HYDROX/AL HYDROX/SIMETH 30 ML CUP PO ONE (14:15)
[2017-05-10] MEDS: PANTOPRAZOLE 40 MG TABLET PO SCH (14:37)
[2017-05-10] MEDS: LISINOPRIL 5 MG TAB PO SCH (14:37)
[2017-05-10 14:58] LABS: Glucose,Whole Blood 156 mg/dL (75-99)
[2017-05-10] MEDS: NITROGLYCERIN SL TABS 0.4 MG TAB SUBLINGUAL ONE ×3 (15:02→15:15)
[2017-05-10 15:13] LABS: Amylase 31 U/L (30-110)
[2017-05-10 15:21] LABS: Creatine Kinase 96 U/L (30-135)
[2017-05-10 15:25] VITALS: BMI 34.0
[2017-05-10 15:35] LABS: Creatine Kinase MB 0.8 ng/mL (0.0-2.4); Troponin I <0.012 ng/mL (0.000-0.034)
[2017-05-10] MEDS: INSULIN ASPART 100 UNIT/ML 1 ML 10 ML VIAL SQ SCH ×2 (16:59→22:40)
[2017-05-10 17:31] LABS: Glucose,Whole Blood 190 mg/dL (75-99)
[2017-05-10] MEDS ORDERED: HYDROmorphone 0.5 MG/0.5 ML SYRINGE IVP PRN (18:54)
[2017-05-10 20:41] LABS: Glucose,Whole Blood 114 mg/dL (75-99)
[2017-05-10 21:12] LABS: Creatine Kinase 83 U/L (30-135)
[2017-05-10 21:24] LABS: Creatine Kinase MB 0.7 ng/mL (0.0-2.4); Troponin I <0.012 ng/mL (0.000-0.034)
[2017-05-10] MEDS: CYCLOBENZAPRINE 10 MG TAB PO SCH (22:40)
[2017-05-10] MEDS: buPROPion SR 150 MG TABLET.ER PO SCH (22:40)
[2017-05-10] MEDS: SUCRALFATE 1 GM TAB PO SCH (22:40)
[2017-05-11 05:56] LABS: Glucose,Whole Blood 98 mg/dL (75-99)
[2017-05-11] MEDS: INSULIN ASPART 100 UNIT/ML 1 ML 10 ML VIAL SQ SCH ×4 (06:17→21:35)
[2017-05-11] MEDS: NITROGLYCERIN OINT 1 INCH/GM PACKET TOPICAL SCH ×2 (06:17→12:24)
[2017-05-11 06:28] LABS: Basophils % (A) 1 %; CHCM 30.6; Eosinophils # (A) 0.1 k/uL (0-0.7); Eosinophils % (A) 2 %; HCT 33.4 % (34.0-46.0); HDW 2.02; HGB 10.4 gm/dL (11.4-16.0); Hypochromasia Slight; Luc # (Auto) 0.08; Luc % (Auto) 2; Lymphocytes # (A) 0.8 k/uL (1.0-4.8); Lymphocytes % (A) 19 %; MCH 31.6 pg (25.0-35.0); MCHC 31.1 g/dL (31.0-37.0); MCV 101.8 fL (80.0-100.0); Macrocytosis Slight; Mean Platelet Volume 7.8; Monocytes # (A) 0.2 k/uL (0-1.0); Monocytes % (A) 6 %; Neutrophils # (A) 2.9 k/uL (1.3-7.7); Neutrophils % (A) 71 %; RBC 3.28 m/uL (3.80-5.40); RDW 14.2 % (11.5-15.5); WBC 4.1 k/uL (3.8-10.6); WBC (Perox) 4.44
[2017-05-11] MEDS: PANTOPRAZOLE 40 MG TABLET PO SCH (07:01)
[2017-05-11 07:15] LABS: Calcium 9.3 mg/dL (8.4-10.2); Magnesium 1.9 mg/dL (1.6-2.3); Potassium 4.7 mmol/L (3.5-5.1); Total Bilirubin 0.3 mg/dL (0.2-1.3); Total Protein 5.6 g/dL (6.3-8.2)
[2017-05-11] MEDS ORDERED: REGADENOSON 0.4 MG/5 ML SYRINGE IV ONE (08:32)
[2017-05-11] MEDS ORDERED: AMINOPHYLLINE 500 MG/20 ML VIAL IV PRN (08:32)
[2017-05-11] MEDS ORDERED: LISINOPRIL 5 MG TAB PO SCH (09:00)
[2017-05-11] MEDS ORDERED: ASPIRIN 325 MG TAB PO SCH ×2 (09:00→19:14)
--- NOTE | 2017-05-11 09:55 | ECHOF ---
Referral Reason:chest pain MEASUREMENTS -------- HEIGHT: 154.9 cm WEIGHT: 81.6 kg BP: 152/67 RVIDd: 2.7 cm (< 3.3) IVSd: 0.8 cm (0.6 - 1.1) LVIDd: 4.4 cm (3.9 - 5.3) LVPWd: 0.9 cm (0.6 - 1.1) IVSs: 1.4 cm LVIDs: 2.5 cm LVPWs: 1.3 cm LA Diam: 3.0 cm (2.7 - 3.8) LAESV Index (A-L): 28.23 ml/m Ao Diam: 3.0 cm (2.0 - 3.7) AV Cusp: 2.2 cm (1.5 - 2.6) MV EXCURSION: 16.356 mm (> 18.000) MV EF SLOPE: 148 mm/s (70 - 150) EPSS: 0.4 cm MV E Get: 1.15 m/s MV DecT: 202 ms MV A Get: 1.50 m/s MV E/A Ratio: 0.76 AV maxP.74 mmHg AV meanP.43 mmHg RAP: 5.00 mmHg RVSP: 24.94 mmHg FINDINGS -------- Resting tachycardia (HR>100bpm). This was a technically good study. The left ventricular size is normal. Left ventricular wall thickness is normal. Overall left vent ricular systolic function is normal with, an EF between 60 - 65 %. The right ventricle is normal in size. Normal LA size by volume 22+/-6 ml/m2. The right atrium is normal in size. The aortic valve is trileaflet and appears structurally normal. Mild mitral annular calcification present. Trace tricuspid regurgitation present. Right ventricular systolic pressure is normal at < 35 mmHg. Trace/mild (physiologic) pulmonic regurgitation. The aortic root size is normal. Normal inferior vena cava with normal inspiratory collapse consistent with estimated right atrial pre ssure of 5 mmHg. There is no pericardial effusion. CONCLUSIONS -------- 1. Resting tachycardia (HR>100bpm). 2. This was a technically good study. 3. The left ventricular size is normal. 4. Left ventricular wall thickness is normal. 5. Overall left ventricular systolic function is normal with, an EF between 60 - 65 %. 6. The right ventricle is normal in size. 7. Normal LA size by volume 22+/-6 ml/m2. 8. The right atrium is normal in size. 9. The aortic valve is trileaflet and appears structurally normal. 10. Mild mitral annular calcification present. 11. Trace tricuspid regurgitation present. 12. Right ventricular systolic pressure is normal at < 35 mmHg. 13. Trace/mild (physiologic) pulmonic regurgitation. 14. The aortic root size is normal. 15. Normal inferior vena cava with normal inspiratory collapse consistent with estimated right atrial pressure of 5 mmHg. 16. There is no pericardial effusion. ORDER TAKER: Oksana Gomez RDCS
[2017-05-11] MEDS: FENOFIBRATE 160 MG TAB PO SCH (11:23)
[2017-05-11] MEDS: FERROUS SULFATE 325 MG TAB PO SCH (11:23)
[2017-05-11] MEDS: SUCRALFATE 1 GM TAB PO SCH ×2 (11:23→19:57)
[2017-05-11] MEDS: LISINOPRIL 5 MG TAB PO SCH (11:24)
--- NOTE | 2017-05-11 11:41 | EST ---
EXERCISE STRESS DATE OF SERVICE: 05/11/2017 AGE: 62 SEX: Female HT: 5'1" WT: 180 PROTOCOL: Lexiscan Cardiolite STAGE: DURATION OF EXERCISE: HEART RATE REST: 93 BLOOD PRESSURE REST: 139/61 MAXIMUM HEART RATE ACHIEVED: 109 MAXIMUM BLOOD PRESSURE: 145/58 85% MPHR: 135 100% MPHR: 159 METS: INDICATIONS: Chest pain. CLINICAL INFORMATION: Patient was given Lexiscan injection over a period of 15 seconds. Peak heart rate of 109 was achieved. Maximum blood pressure of 145/58 mmHg was noted. The resting EKG shows normal sinus rhythm with normal MO interval and QRS duration and normal ST-T waves. No ST-segment depression suggestive of ischemia is noted. The results of nuclear study will follow. RAJINDER / JAILENEN: [id number] /
--- NOTE | 2017-05-11 11:41 | NM ---
EXAMINATION TYPE: NM stress lexiscan cardiolite DATE OF EXAM: 05/11/2017 COMPARISON: NONE HISTORY: Chest pain TECHNIQUE: After the intravenous administration of 11.3 mCi Tc 99m Sestamibi - Cardiolite resting SP ECT images acquired 45 minutes post injection. The patient received 0.4mg Lexiscan, 27 mCi Tc 99m Sestamibi - Stress images obtained 30 minutes post injection FINDINGS: Review of stress and rest SPECT images demonstrates decreased radiopharmaceutical uptake along the in feroapical left ventricle on stress as compared to rest images. Gated analysis shows normal wall mot ion with an estimated left ventricular ejection fraction of 65 %. IMPRESSION: Findings suggest pharmacologically induced left ventricular myocardial ischemia as described. Conside r echocardiographic correlation for elevated ejection fraction.
[2017-05-11 11:59] LABS: Glucose,Whole Blood 95 mg/dL (75-99)
--- NOTE | 2017-05-11 13:22 | P.PN ---
Subjective Progress Note Date: 05/11/17 This is a 62-year-old female, patient of [facility]. She has a known past medical history hypertension, diabetes mellitus, hyperlipidemia, chronic kidney disease, GERD, former smoker, and family history of heart disease. She has 2 brothers who had heart attacks one was fatal. And both her mother and father have a history of heart disease. Patient presents to the emergency room with complaints of intermittent chest pain for the past week may be in to 2 weeks. When asked where the pain is located patient points to the epigastric area and reports that the pain goes up into the chest neck in all into the head. She reports that her head feels like it's been explode. She says she has checked her blood pressures at home and reports that they have not been high. She takes lisinopril at home. She was given nitro by the PA at her PCP office. Patient took a nitro last night and then took 2 this morning. She had some relief but was still having more pain than usual. Came into the emergency room for further evaluation and treatment. The first troponin was negative. EKG shows a normal sinus rhythm. She was started on IV heparin in the emergency room. Cardiology has been consulted. Reports her last stress test was about 10 years ago and was told that it was normal. Also, patient had a recent EGD and colonoscopy for acid reflux symptoms. Results show antral gastritis, hiatal hernia, mild esophagitis and a normal colon. Procedures were completed with Dr. Rangel on 05/03/2017. Patient also admits to having some shortness of breath and nausea with her chest pain. Denies any diaphoresis. Denies any actual vomiting. Denies any dizziness or lightheadedness. Denies any significant bowel changes. Denies any urinary symptoms. Reports that symptoms do not really worsen with food. Pain does not worsen with ambulating 05/11/2017 patient had stress test this morning which came back positive. Still having chest discomforts through the night. She required nitro and pain medication. Patient reports pain in the epigastric chest area radiating up into the head with a headache. Objective - Vital Signs Vital signs: Vital Signs Temp 97.4 F L 05/11/17 11:25 Pulse 84 05/11/17 11:25 Resp 18 05/11/17 11:25 BP 142/60 05/11/17 11:25 Pulse Ox 98 05/11/17 11:25 Intake & Output 05/10/17 05/11/17 05/11/17 18:59 06:59 18:59 Intake Total 487.662 236 Output Total 0 Balance 487.662 236 Weight 81.647 kg 83.1 kg Intake: Intake, IV Titration 127.662 Amount Heparin Sodium,Porcine/ 127.662 D5w Pmx 25,000 unit In Dextrose/Water 1 500ml. bag @ 12 UNITS/KG/HR 19. 59 mls/hr IV .Q24H [facility] Rx #:[id number] Oral 360 236 Output: Urine 0 Other: Voiding Method Toilet Toilet # Voids 1 1 - Exam Head normocephalic Neck supple Lungs clear to auscultation bilaterally no wheezing or crackles Heart regular rate and rhythm S1-S2, no rub or gallop Abdomen is soft nontender nondistended positive bowel sounds no hepatosplenomegaly Extremities no edema Neuro alert and orientated to 3 - Labs CBC & Chem 7: 05/11/17 05:37 05/11/17 05:37 Labs: Abnormal Lab Results - Last 24 Hours (Table) 05/10/17 05/10/17 05/10/17 Range/Units 08:50 14:42 16:50 RBC (3.80-5.40) m/uL Hgb (11.4-16.0) gm/dL Hct (34.0-46.0) % MCV (80.0-100.0) fL Lymphocytes # (1.0-4.8) k/uL APTT (22.0-30.0) sec D-Dimer (<0.60) mg/L FEU BUN (7-17) mg/dL Creatinine (0.52-1.04) mg/dL Glucose (74-99) mg/dL POC Glucose (mg/dL) 156 H 190 H (75-99) mg/dL Hemoglobin A1c 6.1 H (4.0-6.0) % Total Protein (6.3-8.2) g/dL Albumin (3.5-5.0) g/dL HDL Cholesterol (40-60) mg/dL 05/10/17 05/10/17 05/10/17 Range/Units 17:42 17:42 20:37 RBC (3.80-5.40) m/uL Hgb (11.4-16.0) gm/dL Hct (34.0-46.0) % MCV (80.0-100.0) fL Lymphocytes # (1.0-4.8) k/uL APTT 79.7 H (22.0-30.0) sec D-Dimer 0.60 H (<0.60) mg/L FEU BUN (7-17) mg/dL Creatinine (0.52-1.04) mg/dL Glucose (74-99) mg/dL POC Glucose (mg/dL) 114 H (75-99) mg/dL Hemoglobin A1c (4.0-6.0) % Total Protein (6.3-8.2) g/dL Albumin (3.5-5.0) g/dL HDL Cholesterol (40-60) mg/dL 05/11/17 05/11/17 05/11/17 Range/Units 00:06 05:37 05:37 RBC 3.28 L (3.80-5.40) m/uL Hgb 10.4 L (11.4-16.0) gm/dL Hct 33.4 L (34.0-46.0) % MCV 101.8 H (80.0-100.0) fL Lymphocytes # 0.8 L (1.0-4.8) k/uL APTT 55.2 H (22.0-30.0) sec D-Dimer (<0.60) mg/L FEU BUN 28 H (7-17) mg/dL Creatinine 1.40 H (0.52-1.04) mg/dL Glucose 105 H (74-99) mg/dL POC Glucose (mg/dL) (75-99) mg/dL Hemoglobin A1c (4.0-6.0) % Total Protein 5.6 L (6.3-8.2) g/dL Albumin 3.4 L (3.5-5.0) g/dL HDL Cholesterol 63 H (40-60) mg/dL Assessment and Plan Assessment: 1. Chest pain: Positive stress test. Awaiting further cardiology recommendations. Troponins negative 3. EKG showing a normal sinus rhythm. Patient has been placed on IV heparin and full aspirin. Cardiology has been consulted. Patient does have cardiac risk factors with hyperlipidemia, hypertension, diabetes mellitus, former smoker and family history of heart disease. 2. Epigastric pain: Amylase and lipase normal and LFTs normal. Patient had recent EGD and colonoscopy on 05/13/[address] Rangel. Results showed antral gastritis, hiatal hernia and mild esophagitis with a normal colonoscopy. I will start patient on Protonix 40 mg daily. Monitor symptoms. 3. Essential hypertension: Restart patient's lisinopril 5 mg daily now 4. Hypomagnesemia: Improved with supplement 5. Hyperlipidemia 6. GERD: Continue Protonix 7. Diabetes mellitus type 2: Hold oral hypoglycemic. Add Humalog sliding scale coverage. Check hemoglobin A1c 8. Chronic kidney disease stage 3 GI prophylaxis Protonix and DVT prophylaxis IV heparin I performed an examination of the patient and discussed their management with the physician Sl[employer]erer [employer]. I have reviewed the Physician Slaughterer [employer]itual's notes and agree with the documented findings and plan of care
--- NOTE | 2017-05-11 13:50 | P.PN ---
Subjective Progress Note Date: 05/11/17 Principal diagnosis: chest pain This is 62-year-old female with history of hypertension, hyperlipidemia, diabetes, renal disease, GERD, who presented to the hospital with symptoms of chest discomfort. She was seen in consultation yesterday by Dr. Fabián Hickey. Patient was recommended today to undergo a Lexiscan stress test. At the time of my examination this morning she denied any further chest discomfort. Blood pressure 142/60 with a heart rate in the 80s, 98% on room air.hemoglobin 10.4, potassium 4.7, BUN 28, creatinine 1.4.magnesium 1.9. Objective - Vital Signs Vital signs: Vital Signs Temp 97.4 F L 05/11/17 11:25 Pulse 84 05/11/17 11:25 Resp 18 05/11/17 11:25 BP 142/60 05/11/17 11:25 Pulse Ox 98 05/11/17 11:25 Intake & Output 05/10/17 05/11/17 05/11/17 18:59 06:59 18:59 Intake Total 487.662 236 Output Total 0 Balance 487.662 236 Weight 81.647 kg 83.1 kg Intake: Intake, IV Titration 127.662 Amount Heparin Sodium,Porcine/ 127.662 D5w Pmx 25,000 unit In Dextrose/Water 1 500ml. bag @ 12 UNITS/KG/HR 19. 59 mls/hr IV .Q24H [facility] Rx #:[id number] Oral 360 236 Output: Urine 0 Other: Voiding Method Toilet Toilet # Voids 1 1 - Exam PHYSICAL EXAMINATION: HEENT: [Head is atraumatic, normocephalic. Pupils equal, round. Neck is supple. There is no elevated jugular venous pressure.] HEART EXAMINATION: [Heart S1, S2 normal. No murmur or gallop heard.] CHEST EXAMINATION:[ Lungs are clear to auscultation and precussion. No chest wall tenderness is noted on palpation or with deep breathing.] ABDOMEN: [ Soft, nontender. Bowel sounds are heard. No organomegaly noted]. EXTREMITIES:[ 2+ peripheral pulses with no evidence of peripheral edema and no calf tenderness noted]. NEUROLOGIC [patient is awake, alert and oriented -3.] . - Labs CBC & Chem 7: 05/11/17 05:37 05/11/17 05:37 Labs: Abnormal Lab Results - Last 24 Hours (Table) 05/10/17 05/10/17 05/10/17 Range/Units 08:50 14:42 16:50 RBC (3.80-5.40) m/uL Hgb (11.4-16.0) gm/dL Hct (34.0-46.0) % MCV (80.0-100.0) fL Lymphocytes # (1.0-4.8) k/uL APTT (22.0-30.0) sec D-Dimer (<0.60) mg/L FEU BUN (7-17) mg/dL Creatinine (0.52-1.04) mg/dL Glucose (74-99) mg/dL POC Glucose (mg/dL) 156 H 190 H (75-99) mg/dL Hemoglobin A1c 6.1 H (4.0-6.0) % Total Protein (6.3-8.2) g/dL Albumin (3.5-5.0) g/dL HDL Cholesterol (40-60) mg/dL 05/10/17 05/10/17 05/10/17 Range/Units 17:42 17:42 20:37 RBC (3.80-5.40) m/uL Hgb (11.4-16.0) gm/dL Hct (34.0-46.0) % MCV (80.0-100.0) fL Lymphocytes # (1.0-4.8) k/uL APTT 79.7 H (22.0-30.0) sec D-Dimer 0.60 H (<0.60) mg/L FEU BUN (7-17) mg/dL Creatinine (0.52-1.04) mg/dL Glucose (74-99) mg/dL POC Glucose (mg/dL) 114 H (75-99) mg/dL Hemoglobin A1c (4.0-6.0) % Total Protein (6.3-8.2) g/dL Albumin (3.5-5.0) g/dL HDL Cholesterol (40-60) mg/dL 05/11/17 05/11/17 05/11/17 Range/Units 00:06 05:37 05:37 RBC 3.28 L (3.80-5.40) m/uL Hgb 10.4 L (11.4-16.0) gm/dL Hct 33.4 L (34.0-46.0) % MCV 101.8 H (80.0-100.0) fL Lymphocytes # 0.8 L (1.0-4.8) k/uL APTT 55.2 H (22.0-30.0) sec D-Dimer (<0.60) mg/L FEU BUN 28 H (7-17) mg/dL Creatinine 1.40 H (0.52-1.04) mg/dL Glucose 105 H (74-99) mg/dL POC Glucose (mg/dL) (75-99) mg/dL Hemoglobin A1c (4.0-6.0) % Total Protein 5.6 L (6.3-8.2) g/dL Albumin 3.4 L (3.5-5.0) g/dL HDL Cholesterol 63 H (40-60) mg/dL Assessment and Plan Plan: Assessment and plan #1 chest pain, with atypical features for acute coronary syndrome #2 hypertension #3 diabetes #4 history of nicotine use #5 chronic kidney disease stage III #6 obesity Plan Patient will undergo a Lexiscan stress test today, further recommendations will be made pending the results. If the stress test is negative, patient may be able to be discharged from our perspective, if the stress test is positive she may require cardiac catheterization. DNP note has been reviewed, I agree with a documented findings and plan of care. Patient was seen and examined.
[2017-05-11] MEDS ORDERED: NITROGLYCERIN SL TABS 0.4 MG TAB SUBLINGUAL PRN (15:10)
[2017-05-11] MEDS ORDERED: ALPRAZolam 0.5 MG TAB PO PRN (15:10)
[2017-05-11] MEDS ORDERED: ALPRAZolam 0.25 MG TAB PO PRN (15:10)
[2017-05-11] MEDS ORDERED: ATORVASTATIN 80 MG TAB PO STA (15:10)
[2017-05-11] MEDS ORDERED: SODIUM CHLORIDE 0.9% 1,000 ML in EMPTY BAG 1 BAG IV ONE (15:10)
--- NOTE | 2017-05-11 15:16 | P.PN ---
Progress Note - Text Progress Note Date: 05/11/17 Pedro stress its results have been discussed with the patient in detail. We recommend proceeding with cardiac catheterization at this time. I have discussed the risks, benefits and alternative therapies for the above-mentioned procedure and for both sedation/analgesia as well as necessary blood product administration, if indicated, as they pertain to this patient. The patient has indicated understanding and acceptance of the risks and procedures discussed. Questions have been answered appropriately She is agreeable to proceed with the above stated procedure. She will be NPO and prepped for this evening with Dr. JOHN Hickey.
[2017-05-11 17:18] LABS: Glucose,Whole Blood 101 mg/dL (75-99)
[2017-05-11] MEDS ORDERED: MIDAZOLAM 2 MG/2 ML VIAL ONE (17:45)
[2017-05-11] MEDS ORDERED: LIDOCAINE 2% INJ 20 MG/ML (20 ML MDV) ONE (17:46)
[2017-05-11] MEDS ORDERED: diphenhydrAMINE 50 MG/ML 1 ML VIAL ONE (17:46)
[2017-05-11] MEDS ORDERED: IV FLUID CONTINUATION 1,000 ML IV ONE (18:02)
[2017-05-11] MEDS ORDERED: MIDAZOLAM 2 MG/2 ML VIAL IV ONE (18:02)
[2017-05-11] MEDS ORDERED: diphenhydrAMINE 50 MG/ML 1 ML VIAL IVP ONE (18:02)
[2017-05-11] MEDS ORDERED: LIDOCAINE 2% INJ 20 MG/ML SQ ONE ×2 (18:13)
[2017-05-11] MEDS ORDERED: HYDROmorphone 2 MG/ML 1 ML SYRINGE ONE (18:51)
[2017-05-11] MEDS ORDERED: IODIXANOL 320 MG/ML 100 ML INTRAARTER ONE (18:54)
[2017-05-11] MEDS ORDERED: RX INFO: IV CONTRAST WAS GIVEN 1 EACH MISC MISCELLANE PRN (19:09)
[2017-05-11] MEDS: buPROPion SR 150 MG TABLET.ER PO SCH (19:57)
[2017-05-11] MEDS: CYCLOBENZAPRINE 10 MG TAB PO SCH (19:58)
[2017-05-11] MEDS: SODIUM CHLORIDE 0.9% 1,000 ML IV SCH (19:58)
[2017-05-11 20:35] LABS: Glucose,Whole Blood 71 mg/dL (75-99)
--- NOTE | 2017-05-11 22:31 | CC ---
CARDIAC CATHETERIZATION REPORT DATE OF SERVICE: 05/11/2017. PERFORMED BY: Dr. Fabián Hickey. SEDATION: Moderate conscious sedation time 45 minutes. The patient was sedated with a combination of Versed and Benadryl and oxygen saturation was monitored closely. PROCEDURE: Left heart catheterization, coronary angiography and aortography. PERFORMED BY: Dr. Fabián Hickey. CLINICAL INFORMATION: Mrs. Adriana Calderón is an 62-year-old lady with a history of type 2 diabetes, hypertension, hyperlipidemia, came to the hospital with chest pain that was atypical and had a positive stress test with inferior wall reversible defect and therefore she was advised cardiac catheterization. The patient's creatinine was mildly elevated. She was hydrated both orally and IV and brought in for the procedure. PROCEDURE NOTE: Under local anesthesia and strict aseptic precautions, a 6-Malay introducer was placed in the right femoral artery. Using a standard left Pema catheter, I performed selective coronary angiography of the left system. A pigtail catheter was used to check LV pressures and the same catheter was used to perform an aortogram in the [facility] projection. I could not cannulate the right coronary artery selectively. I tried different catheters including a standard right and Brian catheter, an Amplatz modified catheter, an Amplatz left 1 catheter. I also used a Tashi posterior catheter. It appeared that the right coronary artery is coming from posterior location. There is calcification, but I could not selectively cannulate it. After several attempts, I performed an aortogram in the [facility] projection, but I could not see a good a image of the RCA. I therefore advised that I will not do any intervention at this time and we will treat her as if she has CAD with the RCA lesion which would be a single-vessel disease and down the road if the creatinine is stabilized after a few weeks, we will consider CT angiography. I explained this to the patient and to her and her in detail. CARDIAC CATHETERIZATION FINDINGS: The left ventricular end diastolic pressure was 12-14 mmHg without any gradient across the aortic valve. CORONARY ANGIOGRAPHY FINDINGS: Right coronary artery: I could not selectively cannulated this vessel. I tried several different catheters, but I could not successfully cannulate it. I could see an outline which is calcified, but without aortogram also. There was no opacification. Possibility of this being a total occlusion should also be considered, but we can verify this with a CT angiography down the road. Left main coronary artery: This is a short patent disease-free vessel that bifurcates into LAD and circumflex. Left main itself is free of significant disease. Left anterior descending coronary artery: Good caliber vessel, gives off a very high diagonal branch runs along the anterior wall and gives off a second diagonal branch. First diagonal is large in caliber. No significant disease. Second diagonal is also fair caliber. No significant disease and then the caliber of LAD decreases, it runs all the way to the apex supplying a sizable amount of myocardium. No significant disease is noted in the LAD system. Left posterior circumflex coronary artery, probably a codominant vessel, gives off a first obtuse marginal and distally gives of 2 branches which do almost look like a posterior lateral branches and one of which appears like a PDA in its distribution. There are minor irregularities but no significant disease is noted in the circumflex system, which appears to be a codominant if not dominant system. Left ventriculogram this was not performed. FINAL IMPRESSION: I could not selectively cannulate the RCA, but I am presuming it is either occluded or probably heavily calcified. 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 Left system is free of significant disease. Circumflex appears to be codominant. Filling pressures are normal. LV gram was not performed because of elevated creatinine. RECOMMENDATIONS: I am recommending medical therapy. Findings were reviewed with the patient and her . I explained to the patient and her that I could not selectively cannulate the RCA, but we will treat it as if it is a total occlusion because of abnormal stress test and consider a CT angiography down the road. I will hydrate her and check BUN and creatinine tomorrow. She was sent to the room in a stable condition. MMODL / IJN: [id number] /
[2017-05-12 07:10] LABS: Glucose,Whole Blood 95 mg/dL (75-99)
[2017-05-12] MEDS ORDERED: METOPROLOL TARTRATE 50 MG TAB PO SCH (07:15)
[2017-05-12 07:19] LABS: Basophils % (A) 1 %; CH 31.6; CHCM 31.6; Eosinophils # (A) 0.1 k/uL (0-0.7); Eosinophils % (A) 2 %; HCT 33.1 % (34.0-46.0); HDW 2.07; HGB 10.2 gm/dL (11.4-16.0); Luc # (Auto) 0.06; Luc % (Auto) 2; Lymphocytes # (A) 0.8 k/uL (1.0-4.8); Lymphocytes % (A) 20 %; MCH 31.1 pg (25.0-35.0); MCHC 30.8 g/dL (31.0-37.0); MCV 100.7 fL (80.0-100.0); Macrocytosis Slight; Mean Platelet Volume 7.4; Monocytes # (A) 0.3 k/uL (0-1.0); Monocytes % (A) 8 %; Neutrophils # (A) 2.5 k/uL (1.3-7.7); Neutrophils % (A) 67 %; RBC 3.29 m/uL (3.80-5.40); RDW 13.3 % (11.5-15.5); WBC 3.8 k/uL (3.8-10.6); WBC (Perox) 3.93
[2017-05-12 07:35] LABS: Total Bilirubin 0.4 mg/dL (0.2-1.3); Total Protein 5.6 g/dL (6.3-8.2)
[2017-05-12] MEDS: SODIUM CHLORIDE 0.9% 1,000 ML IV SCH (08:24)
[2017-05-12] MEDS: HEPARIN SODIUM,PORCINE/D5W PMX 25,000 UNIT in DEXTROSE/WATER 1 500ML.BAG IV SCH (08:25)
[2017-05-12] MEDS: INSULIN ASPART 100 UNIT/ML 1 ML 10 ML VIAL SQ SCH ×2 (08:45→12:27)
[2017-05-12] MEDS: SUCRALFATE 1 GM TAB PO SCH (09:12)
[2017-05-12] MEDS: FENOFIBRATE 160 MG TAB PO SCH (09:12)
[2017-05-12] MEDS: FERROUS SULFATE 325 MG TAB PO SCH (09:12)
[2017-05-12] MEDS: LISINOPRIL 5 MG TAB PO SCH (09:12)
[2017-05-12] MEDS: PANTOPRAZOLE 40 MG TABLET PO SCH (09:12)
[2017-05-12] MEDS ORDERED: ASPIRIN 81 MG PO SCH ×2 (09:27→10:00)
[2017-05-12 09:42] VITALS: RESP 16
--- NOTE | 2017-05-12 10:06 | PN ---
PROGRESS NOTE Mrs Calderón underwent a cardiac cath yesterday which revealed no significant disease of the left system and I could not selectively cannulate the RCA, either it is totally occluded or comes from a very ectopic location. LV function is well preserved on echo. I am recommending a beta marisel and she can be discharged today. I am going to give the beta marisel today, increase activity and discharge her today and I will see her in the office on May 28 at 10:45 a.m. This morning, her blood pressure is 120/70, pulse rate is about 84 per minute, S1, S2 are normal. Lungs are clear. Abdomen and lower exam unchanged. Right groin is clean and dry with mild tenderness. Pulses good. Plan is to discharge the patient on current medical regimen after she is up and about and I will see her in the office on May 28. She will call me sooner for questions, concerns, or problem. MMODL / IJN: [id number] /
[2017-05-12 11:53] LABS: Glucose,Whole Blood 108 mg/dL (75-99)
[2017-05-12 12:28] VITALS: BP 112/64; PULSE 80; TEMP 98.4
--- NOTE | 2017-05-12 13:02 | P.DS ---
Providers Date of admission: 05/11/17 14:24 Expected date of discharge: 05/12/17 Attending physician: João Owens Consults: 05/10/17 11:09 Consult Physician Stat Consulting Provider: [facility] Consult Reason/Comments: Chest pain Do you want consulting provider notified?: Yes Primary care physician: Karen Snowden [facility] Course: Diagnoses on discharge: 1. Chest pain, myocardial infarction ruled out, patient had abnormal stress test, she had a cardiac catheterization was Dr. JOHN Hickey which revealed normal left system, but the right coronary artery was not found either because of total occlusion or because of anomalous origin patient will be followed by Dr. JOHN Hickey as outpatient for further evaluation possibly with computed tomography scan angiogram. 2. Epigastric pain: Check amylase and lipase. Patient had recent EGD and colonoscopy last month with Dr. Rangel. Results showed antral gastritis, hiatal hernia and mild esophagitis with a normal colonoscopy. patient was started on Protonix 40 mg daily. 3. Essential hypertension: Restart patient's lisinopril 5 mg daily now 4. Hypomagnesemia: Give magnesium sulfate 2 g 1. Repeat magnesium level in a.m. 5. Hyperlipidemia 6. GERD: Continue Protonix 7. Diabetes mellitus type 2: Hold oral hypoglycemic. Add Humalog sliding scale coverage. Check hemoglobin A1c 8. Chronic kidney disease stage 3 Patient was stable for discharge she was instructed of her cardiac catheterization results she was chest pain-free at the time of discharge she will follow-up with [facility] within one week also follow-up with Dr. JOHN Hickey on May 28 2017 Patient Condition at Discharge: Stable Plan - Discharge Summary Discharge Rx Participant: No New Discharge Prescriptions: No Action Ferrous Sulfate [Feosol] 325 mg PO DAILY Fenofibrate,Micronized [Fenofibrate] 200 mg PO DAILY Pioglitazone HCl 15 mg PO DAILY Nitroglycerin [Nitroglycerin] 0.4 mg PO Q5M PRN PRN Reason: Chest Pain Cyclobenzaprine [Flexeril] 10 mg PO HS buPROPion HCL [Wellbutrin SR] 150 mg PO HS Sucralfate [Carafate] 1 gram PO BID Lisinopril [Zestril] 5 mg PO DAILY Aspirin/Acetaminophen/Caffeine [Excedrin Migraine Caplet] 1 tab PO BID PRN PRN Reason: Migraine Headache Metaxalone [Skelaxin] 800 mg PO TID PRN PRN Reason: FOOT PAIN Discharge Medication List Fenofibrate,Micronized [Fenofibrate] 200 mg PO DAILY 05/02/17 [History] Ferrous Sulfate [Feosol] 325 mg PO DAILY 05/02/17 [History] Pioglitazone HCl 15 mg PO DAILY 05/02/17 [History] Aspirin/Acetaminophen/Caffeine [Excedrin Migraine Caplet] 1 tab PO BID PRN 05/10 [History] Cyclobenzaprine [Flexeril] 10 mg PO HS 05/10/17 [History] Lisinopril [Zestril] 5 mg PO DAILY 05/10/17 [History] Metaxalone [Skelaxin] 800 mg PO TID PRN 05/10/17 [History] Nitroglycerin [Nitroglycerin] 0.4 mg PO Q5M PRN 05/10/17 [History] Sucralfate [Carafate] 1 gram PO BID 05/10/17 [History] buPROPion HCL [Wellbutrin SR] 150 mg PO HS 05/10/17 [History] Follow up Appointment(s)/Referral(s): Katina Hickey MD [STAFF PHYSICIAN] - 05/28/17 10:45 am Karen Snowden DO [Primary Care Provider] - 1-2 days
[2017-05-13] MEDS ORDERED: METOPROLOL TARTRATE 50 MG TAB PO SCH (09:00)
== END 2017-05-12 14:03 | disposition home or self-care (01) | DRG 287 ==
LOC: EC 08:17 → 6SEL 10:38 → 3OBS 05-11 09:51 → OBSVTOIN 05-11 14:24
PROVIDERS: ADMIT Internal Medicine; ATTEND Internal Medicine
PROC: B3101ZZ Fluoroscopy of Thoracic Aorta using Low Osmolar Contrast (ICD-10-PCS; 2017-05-11)
PROC: 4A023N7 Measurement of Cardiac Sampling and Pressure, Left Heart, Percutaneous Approach (ICD-10-PCS; principal; 2017-05-11 17:46)
PROC: B2111ZZ Fluoroscopy of Multiple Coronary Arteries using Low Osmolar Contrast (ICD-10-PCS; 2017-05-11 17:46)
DX: I20.0 Unstable angina (principal); E11.22 Type 2 diabetes mellitus with diabetic chronic kidney disease; N18.3 Chronic kidney disease, stage 3 (moderate); E78.5 Hyperlipidemia, unspecified; E83.42 Hypomagnesemia; I12.9 Hypertensive chronic kidney disease with stage 1 through stage 4 chronic kidney disease, or unspecified chronic kidney disease; H54.61 Unqualified visual loss, right eye, normal vision left eye; K21.0 Gastro-esophageal reflux disease with esophagitis; K44.9 Diaphragmatic hernia without obstruction or gangrene; K29.60 Other gastritis without bleeding; E66.9 Obesity, unspecified; G89.29 Other chronic pain; G43.909 Migraine, unspecified, not intractable, without status migrainosus; Z88.1 Allergy status to other antibiotic agents; Z87.891 Personal history of nicotine dependence; Z88.2 Allergy status to sulfonamides; Z82.49 Family history of ischemic heart disease and other diseases of the circulatory system; Z79.82 Long term (current) use of aspirin; Z79.899 Other long term (current) drug therapy; Z80.3 Family history of malignant neoplasm of breast; Z90.49 Acquired absence of other specified parts of digestive tract
CPT/HCPCS: 36415; 71020; 78452; 80053; 80061; 82150; 82550; 82553; 83036; 83690; 83735; 84484; 85025; 85379; 85610; 85730; 93005; 93017; 93306; 93458; 93567; 94760; 96365; 96375; 96376; 99285

== ENCOUNTER 2017-07-15 22:39 | Observation (INO) | payer OTHER ==
[2017-07-15] MEDS ORDERED: ASPIRIN 81 MG PO STA (22:55)
[2017-07-15] MEDS ORDERED: NITROGLYCERIN OINT 1 INCH/GM PACKET TOPICAL STA (22:55)
--- NOTE | 2017-07-15 22:58 | ED ---
General Adult HPI - General Chief complaint: Chest Pain Stated complaint: Chest Pain Time Seen by Provider: 07/15/17 22:45 Source: patient, RN notes reviewed Mode of arrival: ambulatory Limitations: no limitations - History of Present Illness Initial comments: This is a 62-year-old female comes into the emergency department stating that she has coronary artery disease. Patient also is a diabetic hypertensive and has high cholesterol. Patient states about 2 hours prior to arrival started having chest pain and some shortness of breath. Patient states she has also been mildly nauseated and had a little sweating episode earlier. Patient states the pain still exists but she didn't take any nitroglycerin because it gives her such a headache. Patient denies any recent fever chills or cough. Patient denies any leg swelling or calf pain. Patient denies abdominal pain patient denies any vomiting or diarrhea recently. Patient denies any headache patient denies numbness weakness. Patient denies any lightheadedness dizziness or any near syncopal episode. - Related Data Home Medications Medication Instructions Recorded Confirmed Fenofibrate,Micronized 200 mg PO DAILY 05/02/17 07/15/17 [Fenofibrate] Ferrous Sulfate [Iron (65 MG 325 mg PO DAILY 05/02/17 07/15/17 Elemental)] Cyclobenzaprine [Flexeril] 10 mg PO HS 05/10/17 07/15/17 Lisinopril [Zestril] 10 mg PO DAILY 05/10/17 07/15/17 Nitroglycerin 0.4 mg PO Q5M PRN 05/10/17 07/15/17 Sucralfate [Carafate] 1 gram PO BID 05/10/17 07/15/17 buPROPion HCL [Wellbutrin SR] 150 mg PO BID 05/10/17 07/15/17 Atorvastatin [Lipitor] 20 mg PO HS 07/15/17 07/15/17 Inulin/Chromium Picolinate [Fiber 1 tab PO DAILY 07/15/17 07/15/17 Gummies Chew] Magnesium Oxide [Batres] 500 mg PO DAILY 07/15/17 07/15/17 Omeprazole 20 mg PO BID 07/15/17 07/15/17 Pioglitazone HCl 45 mg PO DAILY 07/15/17 07/15/17 Previous Rx's Medication Instructions Recorded Aspirin 81 mg PO DAILY chew 05/12/17 Metoprolol Tartrate [Lopressor] 50 mg PO DAILY tab 05/12/17 Allergies Allergy/AdvReac Type Severity Reaction Status Date / Time sulfamethoxazole Allergy Unknown Verified 07/15/17 23:02 [From Bactrim] trimethoprim [From Bactrim] Allergy Unknown Verified 07/15/17 23:02 Review of Systems ROS Statement: Those systems with pertinent positive or pertinent negative responses have been documented in the HPI. ROS Other: All systems not noted in ROS Statement are negative. 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 History of Any Multi-Drug Resistant Organisms: None Reported Past Surgical History: Cholecystectomy, Orthopedic Surgery Additional Past Surgical History / Comment(s): 04/2017 EGD/colonoscopy, past EGD /colonoscopy, "left shoulder surgery for a tendon." Past Anesthesia/Blood Transfusion Reactions: No Reported Reaction Past Psychological History: No Psychological Hx Reported Smoking Status: Former smoker - Past Family History Mother Family Medical History: Cancer Additional Family Medical History / Comment(s): breast cancer, pacemaker. Father Family Medical History: CVA/TIA, Myocardial Infarction (NE) Additional Family Medical History / Comment(s): Pt does not know at what age father had NE Brother(s) Family Medical History: Congestive Heart Failure (CHF) Additional Family Medical History / Comment(s): CABG General Exam - General Exam Comments Initial Comments: GENERAL: Patient is well-developed and well-nourished. Patient is nontoxic and well- hydrated and is in mild distress ENT: Neck is soft and supple. No significant lymphadenopathy is noted. Oropharynx is clear. Moist mucous membranes. Neck has full range of motion without eliciting any pain. EYES: The sclera were anicteric and conjunctiva were pink and moist. Extraocular movements were intact and pupils were equal round and reactive to light. Eyelids were unremarkable. PULMONARY: Unlabored respirations. Good breath sounds bilaterally. No audible rales rhonchi or wheezing was noted. CARDIOVASCULAR: There is a regular rate and rhythm without any murmurs gallops or rubs. ABDOMEN: Soft and nontender with normal bowel sounds. No palpable organomegaly was noted. There is no palpable pulsatile mass. SKIN: Skin is clear with no lesions or rashes and otherwise unremarkable. NEUROLOGIC: Patient is alert and oriented x3. Cranial nerves II through XII are grossly intact. Motor and sensory are also intact. Normal speech, volume and content. Symmetrical smile. MUSCULOSKELETAL: Normal extremities with adequate strength and full range of motion. no calf tenderness no edema LYMPHATICS: No significant lymphadenopathy is noted PSYCHIATRIC: Normal psychiatric evaluation. Normal interpersonal interactions appears functionally intact in deals appropriately with others. No signs of depression. No signs of anxiety. Limitations: no limitations Course Vital Signs 07/15/17 22:47 Temperature 98.4 F Pulse Rate 64 Respiratory 18 Rate Blood Pressure 160/70 O2 Sat by Pulse 95 Oximetry Medical Decision Making - Medical Decision Making EKG shows normal sinus rhythm at 60 bpm OR interval 240 QRS is 92 QT interval 376 QTC is 381. Patient's EKG shows no ST segment elevation or depression or T wave abnormalities are noted Chest x-ray shows no acute abnormality. I started the patient on heparin because of her risk factors and classic presentation. I spoke with Dr. Geiger he agreed to admit the patient admitted the patient I consult cardiology I continued heparin and aspirin and nitroglycerin on the floor. - Lab Data Result diagrams: 07/15/17 22:45 07/15/17 22:45 Lab Results 07/15/17 07/15/17 07/15/17 Range/Units 22:45 22:45 22:45 WBC 4.0 (3.8-10.6) k/uL RBC 3.45 L (3.80-5.40) m/uL Hgb 10.9 L (11.4-16.0) gm/dL Hct 36.3 (34.0-46.0) % MCV 105.3 H (80.0-100.0) fL MCH 31.6 (25.0-35.0) pg MCHC 30.1 L (31.0-37.0) g/dL RDW 15.2 (11.5-15.5) % Plt Count 224 (150-450) k/uL Neutrophils % 68 % Lymphocytes % 20 % Monocytes % 8 % Eosinophils % 2 % Basophils % 1 % Neutrophils # 2.7 (1.3-7.7) k/uL Lymphocytes # 0.8 L (1.0-4.8) k/uL Monocytes # 0.3 (0-1.0) k/uL Eosinophils # 0.1 (0-0.7) k/uL Basophils # 0.0 (0-0.2) k/uL Hypochromasia Slight Macrocytosis Moderate PT (9.0-12.0) sec INR (<1.2) APTT (22.0-30.0) sec Sodium 140 (137-145) mmol/L Potassium 4.5 (3.5-5.1) mmol/L Chloride 104 (98-107) mmol/L Carbon Dioxide 25 (22-30) mmol/L Anion Gap 11 mmol/L BUN 40 H (7-17) mg/dL Creatinine 1.90 H (0.52-1.04) mg/dL Est GFR (MDRD) Af Amer 33 (>60 ml/min/1.73 sqM) Est GFR (MDRD) Non-Af 27 (>60 ml/min/1.73 sqM) Glucose 141 H (74-99) mg/dL Calcium 9.9 (8.4-10.2) mg/dL Magnesium 1.5 L (1.6-2.3) mg/dL Total Bilirubin 0.3 (0.2-1.3) mg/dL AST 26 (14-36) U/L ALT 36 (9-52) U/L Alkaline Phosphatase 47 (38-126) U/L Total Creatine Kinase 96 (30-135) U/L CK-MB (CK-2) 0.6 (0.0-2.4) ng/mL CK-MB (CK-2) Rel Index 0.6 Troponin I <0.012 (0.000-0.034) ng/mL Total Protein 6.2 L (6.3-8.2) g/dL Albumin 3.9 (3.5-5.0) g/dL 07/15/17 Range/Units 22:45 WBC (3.8-10.6) k/uL RBC (3.80-5.40) m/uL Hgb (11.4-16.0) gm/dL Hct (34.0-46.0) % MCV (80.0-100.0) fL MCH (25.0-35.0) pg MCHC (31.0-37.0) g/dL RDW (11.5-15.5) % Plt Count (150-450) k/uL Neutrophils % % Lymphocytes % % Monocytes % % Eosinophils % % Basophils % % Neutrophils # (1.3-7.7) k/uL Lymphocytes # (1.0-4.8) k/uL Monocytes # (0-1.0) k/uL Eosinophils # (0-0.7) k/uL Basophils # (0-0.2) k/uL Hypochromasia Macrocytosis PT 11.1 (9.0-12.0) sec INR 1.1 (<1.2) APTT 23.1 (22.0-30.0) sec Sodium (137-145) mmol/L Potassium (3.5-5.1) mmol/L Chloride (98-107) mmol/L Carbon Dioxide (22-30) mmol/L Anion Gap mmol/L BUN (7-17) mg/dL Creatinine (0.52-1.04) mg/dL Est GFR (MDRD) Af Amer (>60 ml/min/1.73 sqM) Est GFR (MDRD) Non-Af (>60 ml/min/1.73 sqM) Glucose (74-99) mg/dL Calcium (8.4-10.2) mg/dL Magnesium (1.6-2.3) mg/dL Total Bilirubin (0.2-1.3) mg/dL AST (14-36) U/L ALT (9-52) U/L Alkaline Phosphatase (38-126) U/L Total Creatine Kinase (30-135) U/L CK-MB (CK-2) (0.0-2.4) ng/mL CK-MB (CK-2) Rel Index Troponin I (0.000-0.034) ng/mL Total Protein (6.3-8.2) g/dL Albumin (3.5-5.0) g/dL Critical Care Time Critical Care Time: Yes Total Critical Care Time: 35 Disposition Clinical Impression: Unstable angina pectoris Disposition: ADMITTED IP TO THIS [facility] Referrals: Karen Snowden DO [Primary Care Provider] - 1-2 days Time of Disposition: 23:44
[2017-07-15 23:10] LABS: Basophils % (A) 1 %; Eosinophils # (A) 0.1 k/uL (0-0.7); Eosinophils % (A) 2 %; HCT 36.3 % (34.0-46.0); HGB 10.9 gm/dL (11.4-16.0); Hypochromasia Slight; Lymphocytes # (A) 0.8 k/uL (1.0-4.8); Lymphocytes % (A) 20 %; MCH 31.6 pg (25.0-35.0); MCHC 30.1 g/dL (31.0-37.0); MCV 105.3 fL (80.0-100.0); Macrocytosis Moderate; Mean Platelet Volume 8.3; Monocytes # (A) 0.3 k/uL (0-1.0); Monocytes % (A) 8 %; Neutrophils # (A) 2.7 k/uL (1.3-7.7); Neutrophils % (A) 68 %; Platelet Count 224 k/uL (150-450); RBC 3.45 m/uL (3.80-5.40); RDW 15.2 % (11.5-15.5)
[2017-07-15 23:15] LABS: Albumin 3.9 g/dL (3.5-5.0); Calcium 9.9 mg/dL (8.4-10.2); Magnesium 1.5 mg/dL (1.6-2.3); Potassium 4.5 mmol/L (3.5-5.1); Total Bilirubin 0.3 mg/dL (0.2-1.3); Total Protein 6.2 g/dL (6.3-8.2)
[2017-07-15 23:18] LABS: INR 1.1 (<1.2); Partial Thromboplastin Time 23.1 sec (22.0-30.0); Prothrombin Time 11.1 sec (9.0-12.0)
[2017-07-15 23:25] LABS: Creatine Kinase 96 U/L (30-135)
[2017-07-15 23:38] LABS: Creatine Kinase MB 0.6 ng/mL (0.0-2.4); Troponin I <0.012 ng/mL (0.000-0.034)
--- NOTE | 2017-07-15 23:41 | XR ---
EXAMINATION TYPE: XR chest 2V DATE OF EXAM: 07/15/2017 COMPARISON: 05/10/2017 HISTORY: Chest pain TECHNIQUE: Frontal and lateral views of the chest are obtained. FINDINGS: Heart and mediastinum are normal. Lungs are clear. Diaphragm is normal. There are chest le ads. Bony thorax is intact. IMPRESSION: Normal chest. No change.
[2017-07-15] MEDS ORDERED: HEPARIN SODIUM,PORCINE 5,000 UNIT/ML 1 ML VIAL IV ONE (23:42)
[2017-07-15] MEDS ORDERED: NITROGLYCERIN SL TABS 0.4 MG TAB SUBLINGUAL PRN (23:45)
[2017-07-15] MEDS: HEPARIN SOD,PORK IN 0.45% NACL 25,000 UNIT in 0.45% NACL 1 500ML.BAG IV SCH (23:51)
[2017-07-15] MEDS ORDERED: ACETAMINOPHEN TAB 500 MG TAB PO STA (23:59)
[2017-07-16] MEDS: NITROGLYCERIN OINT 1 INCH/GM PACKET TOPICAL SCH ×2 (00:47→05:02)
[2017-07-16 06:13] LABS: Cholesterol 130 mg/dL (<200); HDL Cholesterol 56 mg/dL (40-60); LDL Cholesterol,Calculated 52 mg/dL (0-99); Triglycerides 109 mg/dL (<150)
[2017-07-16 06:19] LABS: Glucose,Whole Blood 90 mg/dL (75-99)
[2017-07-16 06:26] LABS: Creatine Kinase 70 U/L (30-135)
[2017-07-16 06:40] LABS: Troponin I <0.012 ng/mL (0.000-0.034)
[2017-07-16 06:46] LABS: Creatine Kinase MB 0.5 ng/mL (0.0-2.4)
[2017-07-16 08:51] LABS: Basophils % (A) 1 %; Eosinophils # (A) 0.1 k/uL (0-0.7); Eosinophils % (A) 3 %; HCT 33.5 % (34.0-46.0); HGB 10.2 gm/dL (11.4-16.0); Lymphocytes # (A) 1.1 k/uL (1.0-4.8); Lymphocytes % (A) 31 %; MCH 31.5 pg (25.0-35.0); MCHC 30.4 g/dL (31.0-37.0); MCV 103.6 fL (80.0-100.0); Macrocytosis Slight; Mean Platelet Volume 8.1; Monocytes # (A) 0.2 k/uL (0-1.0); Monocytes % (A) 6 %; Neutrophils # (A) 2.1 k/uL (1.3-7.7); Neutrophils % (A) 57 %; Platelet Count 217 k/uL (150-450); RBC 3.23 m/uL (3.80-5.40); RDW 14.1 % (11.5-15.5); WBC 3.7 k/uL (3.8-10.6)
[2017-07-16 09:00] LABS: Albumin 2.9 g/dL (3.5-5.0); Calcium 9.5 mg/dL (8.4-10.2); Magnesium 1.4 mg/dL (1.6-2.3); Potassium 4.5 mmol/L (3.5-5.1); Total Bilirubin 0.2 mg/dL (0.2-1.3); Total Protein 5.3 g/dL (6.3-8.2)
[2017-07-16] MEDS ORDERED: ASPIRIN 325 MG TAB PO SCH (09:00)
--- NOTE | 2017-07-16 09:46 | P.CRDCN ---
History of Present Illness Consult date: 07/16/17 Requesting physician: Naomi Geiger Consult reason: chest pain Chief complaint: Chest Pain History of present illness: This is a 62-year-old female with past medical history significant for diabetes, hyperlipidemia, hypertension, chronic renal disease, recently in the hospital in April at which time she underwent a Lexiscan stress test which revealed pharmacologically induced left ventricular myocardial ischemia, for this reason she underwent cardiac catheterization. Catheterization performed at that time, the RCA could not be cannulated, Dr. Fabián Hickey presumed it was either occluded or heavily calcified, left system free of any significant disease, circumflex appears to be codominant, filling pressures are normal. Medical therapy was advised at that time. Into the patient, since her discharge in April she's been doing fairly well at home. She presents to the hospital on this occasion with symptoms of midsternal, midepigastric chest discomfort which started around 7 PM last evening. She states that she ate her dinner around 6, she has been experiencing some abdominal bloating. Along with the chest discomfort patient states that she had mild nausea and diaphoresis. Breathing overall was stable. Patient did take extra Prilosec with no relief of symptoms. She was also given a sublingual nitroglycerin but states she developed a severe headache from that. Pain does worsen when she takes a deep breath. She did have an EGD and colonoscopy performed in April which revealed antral gastritis, hiatal hernia with mild esophagitis, normal colon. KG on admission showed a normal sinus rhythm no acute changes. Chest X-ray normal. Blood pressure 108/50 with a heart rate in the 60s. White blood cell count 3.7, hemoglobin 10.2, platelet count 217. Sodium 141, potassium 4.5, BUN 39, creatinine 1.7. Troponins 2 have been negative. My examination this morning, patient complains of feeling extremely tired. Chest pain reproducible with deep breathing. 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 Pt is independent. Smoking Status: Former smoker Past Alcohol Use History: None Reported Additional Past Alcohol Use History / Comment(s): quit smoking ,smoked approx 20 yrs < 1ppd Past Drug Use History: None Reported - Past Family History Mother Family Medical History: Cancer Additional Family Medical History / Comment(s): breast cancer, pacemaker. Father Family Medical History: CVA/TIA, Myocardial Infarction ([place]) Additional Family Medical History / Comment(s): Pt does not know at what age father had [place] Brother(s) Family Medical History: Congestive Heart Failure (CHF) Additional Family Medical History / Comment(s): CABG Medications and Allergies Home Medications Medication Instructions Recorded Confirmed Type Fenofibrate,Micronized 200 mg PO DAILY 05/02/17 07/15/17 History [Fenofibrate] Ferrous Sulfate [Iron (65 MG 325 mg PO DAILY 05/02/17 07/15/17 History Elemental)] Cyclobenzaprine [Flexeril] 10 mg PO HS 05/10/17 07/15/17 History Lisinopril [Zestril] 10 mg PO DAILY 05/10/17 07/15/17 History Nitroglycerin 0.4 mg PO Q5M PRN 05/10/17 07/15/17 History Sucralfate [Carafate] 1 gram PO BID 05/10/17 07/15/17 History buPROPion HCL [Wellbutrin SR] 150 mg PO BID 05/10/17 07/15/17 History Aspirin 81 mg PO DAILY chew 05/12/17 07/15/17 Rx Metoprolol Tartrate [Lopressor] 50 mg PO DAILY tab 05/12/17 07/15/17 Rx Atorvastatin [Lipitor] 20 mg PO HS 07/15/17 07/15/17 History Inulin/Chromium Picolinate [Fiber 1 tab PO DAILY 07/15/17 07/15/17 History Gummies Chew] Magnesium Oxide [Batres] 500 mg PO DAILY 07/15/17 07/15/17 History Omeprazole 20 mg PO BID 07/15/17 07/15/17 History Pioglitazone HCl 45 mg PO DAILY 07/15/17 07/15/17 History Allergies Allergy/AdvReac Type Severity Reaction Status Date / Time sulfamethoxazole Allergy Unknown Verified 07/15/17 23:02 [From Bactrim] trimethoprim [From Bactrim] Allergy Unknown Verified 07/15/17 23:02 Physical Exam Vitals: Vital Signs Temp Pulse Pulse Resp BP BP Pulse Ox 07/16/17 08:00 97.1 F L 68 16 107/52 07/16/17 03:28 97.0 F L 63 18 95/43 98 07/16/17 00:13 96.7 F L 62 18 129/61 99 07/15/17 23:50 97.6 F 61 18 160/70 97 07/15/17 22:47 98.4 F 64 18 160/70 95 Intake and Output 07/15/17 07/16/17 07/16/17 22:59 06:59 14:59 Intake Total 10 Balance 10 Intake: IV 10 Invasive Line 2 10 Other: # Voids 1 Weight 77.111 kg 81.2 kg PHYSICAL EXAMINATION: HEENT: Head is atraumatic, normocephalic. Pupils equal, round. Neck is supple. There is no elevated jugular venous pressure. HEART EXAMINATION: Heart S1, S2 normal. No murmur or gallop heard. CHEST EXAMINATION: Lungs are clear to auscultation and precussion. Positive chest wall tenderness is noted on palpation and with deep breathing. ABDOMEN: Soft, nontender. Bowel sounds are heard. No organomegaly noted. EXTREMITIES: 2+ peripheral pulses with no evidence of peripheral edema and no calf tenderness noted. NEUROLOGIC patient is awake, alert and oriented -3. . Results 07/16/17 05:16 07/16/17 05:16 Cardiac Enzymes 07/15/17 07/15/17 07/16/17 Range/Units 22:45 22:45 05:16 AST 26 (14-36) U/L CK-MB (CK-2) 0.6 0.5 (0.0-2.4) ng/mL Troponin I <0.012 <0.012 (0.000-0.034) ng/mL 07/16/17 Range/Units 05:16 AST 23 (14-36) U/L CK-MB (CK-2) (0.0-2.4) ng/mL Troponin I (0.000-0.034) ng/mL Coagulation 07/15/17 07/16/17 Range/Units 22:45 05:16 PT 11.1 (9.0-12.0) sec APTT 23.1 57.1 H (22.0-30.0) sec Lipids 07/16/17 Range/Units 05:16 Triglycerides 109 (<150) mg/dL Cholesterol 130 (<200) mg/dL HDL Cholesterol 56 (40-60) mg/dL CBC 07/15/17 07/16/17 Range/Units 22:45 05:16 WBC 4.0 3.7 L (3.8-10.6) k/uL RBC 3.45 L 3.23 L (3.80-5.40) m/uL Hgb 10.9 L 10.2 L (11.4-16.0) gm/dL Hct 36.3 33.5 L (34.0-46.0) % Plt Count 224 217 (150-450) k/uL Comprehensive Metabolic Panel 07/15/17 07/16/17 Range/Units 22:45 05:16 Sodium 140 141 (137-145) mmol/L Potassium 4.5 4.5 (3.5-5.1) mmol/L Chloride 104 110 H (98-107) mmol/L Carbon Dioxide 25 22 (22-30) mmol/L BUN 40 H 39 H (7-17) mg/dL Creatinine 1.90 H 1.77 H (0.52-1.04) mg/dL Glucose 141 H 84 (74-99) mg/dL Calcium 9.9 9.5 (8.4-10.2) mg/dL AST 26 23 (14-36) U/L ALT 36 34 (9-52) U/L Alkaline Phosphatase 47 32 L (38-126) U/L Total Protein 6.2 L 5.3 L (6.3-8.2) g/dL Albumin 3.9 2.9 L (3.5-5.0) g/dL Current Medications Generic Name Dose Route Start Last Admin Trade Name Demetriq PRN Reason Stop Dose Admin Aspirin 325 mg 07/16/17 09:00 Aspirin PO DAILY [facility] Heparin Sodium/Sodium Chloride 500 mls @ 18.5 mls/hr 07/15/17 23:45 07/15/17 23:51 25,000 unit/ Sodium Chloride IV 12 units/kg/hr .Q24H MARK 18.5 mls/hr Protocol Administration 12 UNITS/KG/HR Nitroglycerin 1 inch 07/16/17 00:00 07/16/17 05:02 Nitro-Bid Oint TOPICAL Not Given Q6HR [facility] Nitroglycerin 0.4 mg 07/15/17 23:45 Nitrostat SUBLINGUAL Q5M PRN Chest Pain Intake and Output 07/15/17 07/16/17 07/16/17 22:59 06:59 14:59 Intake Total 10 Balance 10 Intake: IV 10 Invasive Line 2 10 Other: # Voids 1 Weight 77.111 kg 81.2 kg 07/16/17 05:16 07/16/17 05:16 EKG Interpretations (text) EKG shows normal sinus rhythm with no acute changes. Assessment and Plan Plan: Assessment and plan #1 atypical chest discomfort pleuritic in nature. Troponins negative 2. EKG shows normal sinus rhythm with no acute changes. 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 Circumflex appeared to be codominant. Medical therapy was advised at that time. # 3 hypertension #4 hyperlipidemia # 5 diabetes #6 GERD #7 chronic renal failure #8 hypomagnesemia Plan Obtain an echocardiogram with Doppler study. Patient's pain is very atypical, pleuritic in nature. Continue aspirin daily, resume statin, lisinopril, metoprolol, and replace magnesium. Cardiac cath films will be reviewed and further recommendations will be made. DNP note has been reviewed, I agree with a documented findings and plan of care. Patient was seen and examined.
--- NOTE | 2017-07-16 10:28 | P.HPIM ---
History of Present Illness H&P Date: 07/16/17 Chief Complaint: Chest pain This is a 62-year-old female, patient of [facility]. She has a known past medical history of coronary artery disease, hypertension, hyperlipidemia, GERD, diabetes mellitus type 2 and chronic kidney disease. Patient was hospitalized in April with chest pain. And at that time she underwent stress test which was abnormal revealing of pharmacologically induced left ventricle myocardial ischemia. Therefore she underwent a heart catheterization. The cardiac catheterization showed that the RCA could not be cannulated. Per cardiology they presumed it was either occluded or how heavy calcified. Last system free of any significant disease, circumflex appears to be codominant, filling pressures are normal. They recommended medical therapy. Patient also had gone down to [place] for another cardiac catheterization. Again no stents were done. Patient reported that they told her just to stay on medications. She comes into the hospital with epigastric and mid sternal chest pain. Symptoms started around 6 to 7:00 last night. Patient reports that she ate [employer] for dinner. And afterwards she was not feeling well. She was nauseous with the chest pain as well as having some diaphoresis. She denies any vomiting, fever, chills or sweats. Denies any dizziness or lightheadedness. The pain did not radiate. She had increased her omeprazole to 3 times a day with no improvement in her symptoms. Therefore she came into the emergency room was given nitroglycerin which did help with her chest pain however developed a severe headache and that had to be discontinued. Patient reports having a EGD and colonoscopy in [place] [address] Cross. Results had shown antral gastritis, hiatal hernia, mild esophagitis with a normal colonoscopy. Patient takes omeprazole 20 mg twice a day. Patient does admit to having episodes of constipation. She is on medications for that. Last bowel movement was this morning. She has no blood in her stools. Hemoglobin 10.2. MCV 103.6. Creatinine 1.77. Troponins are negative 2 sets. EKG had shown normal sinus rhythm. Chest x-ray showed no acute abnormality. Patient also had evidence of mild hypomagnesemia with magnesium of 1.4. She is receiving supplement. 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 Pt is independent. Smoking Status: Former smoker Past Alcohol Use History: None Reported Additional Past Alcohol Use History / Comment(s): quit smoking ,smoked approx 20 yrs < 1ppd Past Drug Use History: None Reported - Past Family History Mother Family Medical History: Cancer Additional Family Medical History / Comment(s): breast cancer, pacemaker. Father Family Medical History: CVA/TIA, Myocardial Infarction ([place]) Additional Family Medical History / Comment(s): Pt does not know at what age father had [place] Brother(s) Family Medical History: Congestive Heart Failure (CHF) Additional Family Medical History / Comment(s): CABG Medications and Allergies Home Medications Medication Instructions Recorded Confirmed Type Fenofibrate,Micronized 200 mg PO DAILY 05/02/17 07/15/17 History [Fenofibrate] Ferrous Sulfate [Iron (65 MG 325 mg PO DAILY 05/02/17 07/15/17 History Elemental)] Cyclobenzaprine [Flexeril] 10 mg PO HS 05/10/17 07/15/17 History Lisinopril [Zestril] 10 mg PO DAILY 05/10/17 07/15/17 History Nitroglycerin 0.4 mg PO Q5M PRN 05/10/17 07/15/17 History Sucralfate [Carafate] 1 gram PO BID 05/10/17 07/15/17 History buPROPion HCL [Wellbutrin SR] 150 mg PO BID 05/10/17 07/15/17 History Aspirin 81 mg PO DAILY chew 05/12/17 07/15/17 Rx Metoprolol Tartrate [Lopressor] 50 mg PO DAILY tab 05/12/17 07/15/17 Rx Atorvastatin [Lipitor] 20 mg PO HS 07/15/17 07/15/17 History Inulin/Chromium Picolinate [Fiber 1 tab PO DAILY 07/15/17 07/15/17 History Gummies Chew] Magnesium Oxide [Batres] 500 mg PO DAILY 07/15/17 07/15/17 History Omeprazole 20 mg PO BID 07/15/17 07/15/17 History Pioglitazone HCl 45 mg PO DAILY 07/15/17 07/15/17 History Allergies Allergy/AdvReac Type Severity Reaction Status Date / Time sulfamethoxazole Allergy Unknown Verified 07/15/17 23:02 [From Bactrim] trimethoprim [From Bactrim] Allergy Unknown Verified 07/15/17 23:02 Physical Exam Vitals: Vital Signs Temp Pulse Pulse Resp BP BP Pulse Ox 07/16/17 08:00 97.1 F L 68 16 107/52 07/16/17 03:28 97.0 F L 63 18 95/43 98 07/16/17 00:13 96.7 F L 62 18 129/61 99 07/15/17 23:50 97.6 F 61 18 160/70 97 07/15/17 22:47 98.4 F 64 18 160/70 95 Intake and Output 07/15/17 07/16/17 07/16/17 22:59 06:59 14:59 Intake Total 10 Balance 10 Intake: IV 10 Invasive Line 2 10 Other: # Voids 1 Weight 77.111 kg 81.2 kg Head normocephalic Neck supple Lungs clear to auscultation bilaterally no wheezing or crackles Heart regular rate and rhythm S1-S2, no rub or gallop Abdomen is soft epigastric tenderness nondistended positive bowel sounds no hepatosplenomegaly Extremities no edema Neuro alert and orientated to 3 Results CBC & Chem 7: 07/16/17 05:16 07/16/17 05:16 Labs: Abnormal Lab Results - Last 24 Hours (Table) 07/15/17 07/15/17 07/16/17 Range/Units 22:45 22:45 05:16 WBC (3.8-10.6) k/uL RBC 3.45 L (3.80-5.40) m/uL Hgb 10.9 L (11.4-16.0) gm/dL Hct (34.0-46.0) % MCV 105.3 H (80.0-100.0) fL MCHC 30.1 L (31.0-37.0) g/dL Lymphocytes # 0.8 L (1.0-4.8) k/uL APTT 57.1 H (22.0-30.0) sec Chloride (98-107) mmol/L BUN 40 H (7-17) mg/dL Creatinine 1.90 H (0.52-1.04) mg/dL Glucose 141 H (74-99) mg/dL Magnesium 1.5 L (1.6-2.3) mg/dL Alkaline Phosphatase (38-126) U/L Total Protein 6.2 L (6.3-8.2) g/dL Albumin (3.5-5.0) g/dL 07/16/17 07/16/17 Range/Units 05:16 05:16 WBC 3.7 L (3.8-10.6) k/uL RBC 3.23 L (3.80-5.40) m/uL Hgb 10.2 L (11.4-16.0) gm/dL Hct 33.5 L (34.0-46.0) % MCV 103.6 H (80.0-100.0) fL MCHC 30.4 L (31.0-37.0) g/dL Lymphocytes # (1.0-4.8) k/uL APTT (22.0-30.0) sec Chloride 110 H (98-107) mmol/L BUN 39 H (7-17) mg/dL Creatinine 1.77 H (0.52-1.04) mg/dL Glucose (74-99) mg/dL Magnesium 1.4 L (1.6-2.3) mg/dL Alkaline Phosphatase 32 L (38-126) U/L Total Protein 5.3 L (6.3-8.2) g/dL Albumin 2.9 L (3.5-5.0) g/dL Thrombosis Risk Factor Assmnt - Choose All That Apply Any of the Below Risk Factors Present?: Yes Each Factor Represents 1 point: Obesity (BMI >25) Other Risk Factors: Yes Each Risk Factor Represents 2 Points: Age 61-74 years Thrombosis Risk Factor Assessment Total Risk Factor Score: 3 Thrombosis Risk Factor Assessment Level: Moderate Risk Assessment and Plan Assessment: 1. Atypical Chest pain: Troponins negative 2. EKG showing normal sinus rhythm with no acute changes. Cardiology consulted. Patient currently on IV heparin. They've ordered an echo. 2. 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 Circumflex appeared to be codominant. Medical therapy advised per cardiology 3. GERD: Last EGD and colonoscopy in April revealing antral gastritis, hiatal hernia, mild esophagitis with a normal colonoscopy. Takes omeprazole 20 mg twice a day at home. At this time we'll continue with the Protonix. Also resume Carafate 4. Chronic kidney disease stage 4 5. Anemia with no active signs of bleeding. Hemoglobin 10.2. She does have known iron deficiency anemia. Check iron studies check B12 level. Continue iron supplement 6. Hyperlipidemia 7. Essential hypertension 8. Diabetes mellitus type 2 on continue Actos add sliding scale coverage 9. Hypomagnesemia: Patient received magnesium supplement. Repeat magnesium level in a.m. GI prophylaxis Protonix and DVT prophylaxis subcu heparin Time with Patient: Greater than 30 (Greater than 50% of the total time spent in counseling and coordination of care.I performed an examination of the patient and discussed their management with the physician Digital Computer Operator. I have reviewed the Physician Digital Computer Operator's notes and agree with the documented findings and plan of care)
[2017-07-16 11:56] LABS: Glucose,Whole Blood 94 mg/dL (75-99)
--- NOTE | 2017-07-16 12:03 | ECHOF ---
Referral Reason:chest pain MEASUREMENTS -------- HEIGHT: 152.4 cm WEIGHT: 81.2 kg BP: 107/52 RVIDd: 2.8 cm (< 3.3) IVSd: 0.9 cm (0.6 - 1.1) LVIDd: 3.8 cm (3.9 - 5.3) LVPWd: 1.2 cm (0.6 - 1.1) IVSs: 1.5 cm LVIDs: 2.5 cm LVPWs: 1.4 cm LAESV Index (A-L): 30.06 ml/m Ao Diam: 2.9 cm (2.0 - 3.7) AV Cusp: 2.0 cm (1.5 - 2.6) LA Diam: 4.2 cm (2.7 - 3.8) MV E Get: 1.13 m/s MV DecT: 309 ms MV A Get: 1.13 m/s MV E/A Ratio: 1.00 RAP: 5.00 mmHg RVSP: 26.64 mmHg FINDINGS -------- Sinus rhythm. This was a technically good study. The left ventricular size is normal. Left ventricular wall thickness is normal. Overall left vent ricular systolic function is normal with, an EF between 60 - 65 %. The right ventricle is normal in size and function. LA is midly dilated 29-33ml/m2. RA appears enlarged. Aortic valve is trileaflet and is mildly thickened. There is no evidence of aortic regurgitation. There is no evidence of aortic stenosis. The mitral valve leaflets are mildly thickened. There is trace to mild mitral regurgitation. Trace tricuspid regurgitation present. Right ventricular systolic pressure is normal at < 35 mmHg. There is no evidence of pulmonary hypertension. Trace/mild (physiologic) pulmonic regurgitation. The aortic root size is normal. Normal inferior vena cava with normal inspiratory collapse consistent with estimated right atrial pre ssure of 5 mmHg. The pericardium is normal. There is no pericardial effusion. CONCLUSIONS -------- 1. Sinus rhythm. 2. This was a technically good study. 3. The left ventricular size is normal. 4. Left ventricular wall thickness is normal. 5. Overall left ventricular systolic function is normal with, an EF between 60 - 65 %. 6. LA is midly dilated 29-33ml/m2. 7. RA appears enlarged. 8. Aortic valve is trileaflet and is mildly thickened. 9. The mitral valve leaflets are mildly thickened. 10. There is trace to mild mitral regurgitation. 11. Trace tricuspid regurgitation present. 12. Right ventricular systolic pressure is normal at < 35 mmHg. 13. There is no evidence of pulmonary hypertension. 14. Trace/mild (physiologic) pulmonic regurgitation. 15. The aortic root size is normal. 16. There is no pericardial effusion. CHANGE ATTENDANT: Vu Koroma RDCS
[2017-07-16 12:08] LABS: Amylase 30 U/L (30-110); Lipase 144 U/L (23-300)
[2017-07-16] MEDS: INSULIN ASPART 100 UNIT/ML 1 ML 10 ML VIAL SQ SCH ×3 (12:23→21:16)
[2017-07-16] MEDS: MAGNESIUM SULFATE-D5W PMX 1 GM in DEXTROSE/WATER 1 100ML.BAG IVPB SCH (12:24)
[2017-07-16 12:26] LABS: Creatine Kinase 70 U/L (30-135)
[2017-07-16 12:35] LABS: Creatine Kinase MB 0.4 ng/mL (0.0-2.4); Troponin I <0.012 ng/mL (0.000-0.034)
[2017-07-16 15:11] LABS: Iron Saturation 14.29 (12.00-45.00)
[2017-07-16] MEDS ORDERED: ACETAMINOPHEN TAB 325 MG TAB PO PRN (16:34)
[2017-07-16 16:36] LABS: Glucose,Whole Blood 121 mg/dL (75-99)
[2017-07-16 16:39] LABS: Hemoglobin A1C 5.5 % (4.0-6.0)
[2017-07-16] MEDS: PANTOPRAZOLE 40 MG TABLET PO SCH (16:45)
[2017-07-16] MEDS: buPROPion SR 150 MG TABLET.ER PO SCH (20:21)
[2017-07-16] MEDS: SUCRALFATE 1 GM TAB PO SCH (20:21)
[2017-07-16] MEDS ORDERED: ATORVASTATIN 20 MG TAB PO SCH (21:00)
[2017-07-16] MEDS ORDERED: CYCLOBENZAPRINE 10 MG TAB PO SCH (21:00)
[2017-07-16 21:16] LABS: Glucose,Whole Blood 102 mg/dL (75-99)
[2017-07-16] MEDS: HEPARIN SOD,PORK IN 0.45% NACL 25,000 UNIT in 0.45% NACL 1 500ML.BAG IV SCH (23:43)
[2017-07-17 04:12] VITALS: TEMP 97.2
[2017-07-17 06:11] LABS: Glucose,Whole Blood 80 mg/dL (75-99)
[2017-07-17] MEDS: INSULIN ASPART 100 UNIT/ML 1 ML 10 ML VIAL SQ SCH ×2 (06:13→12:11)
[2017-07-17 06:17] LABS: Basophils % (A) 1 %; Eosinophils # (A) 0.1 k/uL (0-0.7); Eosinophils % (A) 4 %; HCT 32.8 % (34.0-46.0); HGB 10.4 gm/dL (11.4-16.0); Hypochromasia Slight; Lymphocytes % (A) 38 %; MCH 32.1 pg (25.0-35.0); MCHC 31.6 g/dL (31.0-37.0); MCV 101.7 fL (80.0-100.0); Macrocytosis Slight; Monocytes # (A) 0.2 k/uL (0-1.0); Monocytes % (A) 7 %; Neutrophils # (A) 1.3 k/uL (1.3-7.7); Neutrophils % (A) 48 %; Platelet Count 234 k/uL (150-450); RBC 3.23 m/uL (3.80-5.40); RDW 15.1 % (11.5-15.5); WBC 2.7 k/uL (3.8-10.6)
[2017-07-17 06:26] LABS: Albumin 3.2 g/dL (3.5-5.0); Calcium 9.7 mg/dL (8.4-10.2); Magnesium 1.9 mg/dL (1.6-2.3); Potassium 4.4 mmol/L (3.5-5.1); Total Bilirubin 0.3 mg/dL (0.2-1.3); Total Protein 5.4 g/dL (6.3-8.2)
[2017-07-17] MEDS: PANTOPRAZOLE 40 MG TABLET PO SCH (06:43)
[2017-07-17] MEDS: buPROPion SR 150 MG TABLET.ER PO SCH (08:50)
[2017-07-17 08:55] VITALS: RESP 16
[2017-07-17] MEDS ORDERED: LISINOPRIL 10 MG TAB PO SCH (09:00)
[2017-07-17] MEDS ORDERED: PIOGLITAZONE 45 MG TAB PO SCH (09:00)
[2017-07-17] MEDS ORDERED: FERROUS SULFATE 325 MG TAB PO SCH (09:00)
[2017-07-17] MEDS ORDERED: METOPROLOL TARTRATE 50 MG TAB PO SCH (09:00)
[2017-07-17] MEDS ORDERED: NON-FORMULARY DRUG (Inulin/Chromium Picolinate [Fiber Gummies Chew] 1 TAB) PO SCH (09:00)
[2017-07-17] MEDS ORDERED: FENOFIBRATE 160 MG TAB PO SCH (09:00)
[2017-07-17] MEDS ORDERED: ASPIRIN 81 MG PO SCH (09:00)
[2017-07-17 11:12] LABS: Glucose,Whole Blood 103 mg/dL (75-99)
[2017-07-17] MEDS ORDERED: MAGNESIUM OXIDE 400 MG TAB PO SCH (12:00)
[2017-07-17] MEDS: SUCRALFATE 1 GM TAB PO SCH (12:13)
[2017-07-17 12:17] VITALS: BP 127/68; PULSE 65
--- NOTE | 2017-07-17 13:29 | P.DS ---
Providers Date of admission: 07/15/17 23:45 Expected date of discharge: 07/17/17 Attending physician: Naomi Geiger Consults: 07/15/17 23:45 Consult Physician Urgent Consulting Provider: [facility] Consult Reason/Comments: unstable angina Do you want consulting provider notified?: Yes Primary care physician: Karen Snowden [place] [facility] Course: Discharge diagnosis 1. Atypical Chest pain with epigastric pain: Troponins negative 3. EKG showing normal sinus rhythm with no acute changes. Echo shows an EF of 60-65%. Patient's chest discomfort has resolved. [place] ruled out. Patient is been cleared by cardiology for discharge. Likely patient's symptoms are related to her acid reflux gastritis, esophagitis and hiatal hernia. Omeprazole was discontinued. Patient was placed on Protonix 40 mg twice 2. 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 Circumflex appeared to be codominant. Medical therapy advised per cardiology 3. GERD: Last EGD and colonoscopy in April revealing antral gastritis, hiatal hernia, mild esophagitis with a normal colonoscopy. Takes omeprazole 20 mg twice a day at home. At this time we'll continue with the Protonix. Also resume Carafate 4. Chronic kidney disease stage 4 5. Chronic Anemia secondary to chronic kidney disease and iron deficiency anemia. Iron studies and B12 level normal 6. Hyperlipidemia 7. Essential hypertension 8. Diabetes mellitus type 2 on continue Actos add sliding scale coverage 9. Hypomagnesemia: Patient received magnesium supplement. Repeat magnesium level within normal range 10. Leukopenia: Likely reactive, possibly related to patient's GI symptoms. Recommend checking CBC in 1 week. Hospital course This is a 62-year-old female, patient of [facility]. She has a known past medical history of coronary artery disease, hypertension, hyperlipidemia, GERD, diabetes mellitus type 2 and chronic kidney disease. Patient was hospitalized in April with chest pain. And at that time she underwent stress test which was abnormal revealing of pharmacologically induced left ventricle myocardial ischemia. Therefore she underwent a heart catheterization. The cardiac catheterization showed that the RCA could not be cannulated. Per cardiology they presumed it was either occluded or how heavy calcified. Last system free of any significant disease, circumflex appears to be codominant, filling pressures are normal. They recommended medical therapy. Patient also had gone down to [place] for another cardiac catheterization. Again no stents were done. Patient reported that they told her just to stay on medications. She comes into the hospital with epigastric and mid sternal chest pain. Symptoms started around 6 to 7:00 last night. Patient reports that she ate [employer] for dinner. And afterwards she was not feeling well. She was nauseous with the chest pain as well as having some diaphoresis. She denies any vomiting, fever, chills or sweats. Denies any dizziness or lightheadedness. The pain did not radiate. She had increased her omeprazole to 3 times a day with no improvement in her symptoms. Therefore she came into the emergency room was given nitroglycerin which did help with her chest pain however developed a severe headache and that had to be discontinued. Patient reports having a EGD and colonoscopy in [place] [address] Cross. Results had shown antral gastritis, hiatal hernia, mild esophagitis with a normal colonoscopy. Patient takes omeprazole 20 mg twice a day. Patient does admit to having episodes of constipation. She is on medications for that. Last bowel movement was this morning. She has no blood in her stools. Hemoglobin 10.2. MCV 103.6. Creatinine 1.77. Troponins are negative 2 sets. EKG had shown normal sinus rhythm. Chest x-ray showed no acute abnormality. Patient also had evidence of mild hypomagnesemia with magnesium of 1.4. She is receiving supplement. Patient's troponins were negative 3 sets. Echo shows an EF of 60-65%. W[place] was ruled out. Cardiology has cleared patient for discharge. Likely patient's symptoms were related to her acid reflux, gastritis, esophagitis and hiatal hernia. We'll discontinue the omeprazole and place patient on Protonix 40 mg twice a day. Her LFTs and amylase and lipase were all within normal range. And she just had colonoscopy and EGD in April 2017. Patient has no active or acute signs of bleeding. Her symptoms are showing improvement then. Her anemia is likely due to her chronic kidney disease and iron deficiency anemia. Continue with her iron supplement. Also had evidence of leukopenia. White count 2.7. This may be reactive. Recommend repeating CBC in 1 week and follow- up with her PCP. Recommend that she avoids greasy and acidic foods. I performed an examination of the patient and discussed their management with the physician Sight Mounter. I have reviewed the Physician Sight Mounter's notes and agree with the documented findings and plan of care Patient Condition at Discharge: Stable Plan - Discharge Summary New Discharge Prescriptions: New Pantoprazole [Protonix] 40 mg PO AC-BID #60 tablet.dr Barrios Ferrous Sulfate [Iron (65 MG Elemental)] 325 mg PO DAILY Fenofibrate,Micronized [Fenofibrate] 200 mg PO DAILY Nitroglycerin 0.4 mg PO Q5M PRN PRN Reason: Chest Pain Cyclobenzaprine [Flexeril] 10 mg PO HS buPROPion HCL [Wellbutrin SR] 150 mg PO BID Sucralfate [Carafate] 1 gram PO BID Lisinopril [Zestril] 10 mg PO DAILY Aspirin 81 mg PO DAILY chew Metoprolol Tartrate [Lopressor] 50 mg PO DAILY tab Magnesium Oxide [Batres] 500 mg PO DAILY Atorvastatin [Lipitor] 20 mg PO HS Pioglitazone HCl 45 mg PO DAILY Inulin/Chromium Picolinate [Fiber Gummies Chew] 1 tab PO DAILY Discontinued Omeprazole 20 mg PO BID Discharge Medication List Fenofibrate,Micronized [Fenofibrate] 200 mg PO DAILY 05/02/17 [History] Ferrous Sulfate [Iron (65 MG Elemental)] 325 mg PO DAILY 05/02/17 [History] Cyclobenzaprine [Flexeril] 10 mg PO HS 05/10/17 [History] Lisinopril [Zestril] 10 mg PO DAILY 05/10/17 [History] Nitroglycerin 0.4 mg PO Q5M PRN 05/10/17 [History] Sucralfate [Carafate] 1 gram PO BID 05/10/17 [History] buPROPion HCL [Wellbutrin SR] 150 mg PO BID 05/10/17 [History] Aspirin 81 mg PO DAILY chew 05/12/17 [Rx] Metoprolol Tartrate [Lopressor] 50 mg PO DAILY tab 05/12/17 [Rx] Atorvastatin [Lipitor] 20 mg PO HS 07/15/17 [History] Inulin/Chromium Picolinate [Fiber Gummies Chew] 1 tab PO DAILY 07/15/17 [History ] Magnesium Oxide [Batres] 500 mg PO DAILY 07/15/17 [History] Pioglitazone HCl 45 mg PO DAILY 07/15/17 [History] Pantoprazole [Protonix] 40 mg PO AC-BID #60 tablet. 07/17/17 [Rx] Follow up Appointment(s)/Referral(s): Karen Snowden DO [Primary Care Provider] - 07/23/17 9:30 am (SUNDAY WITH PANEL SAW OPERATOR) Activity/Diet/Wound Care/Special Instructions: Diet: cardiac. [place] diet for a few days. Avoid greasy foods Activity: as tolerated Discharge Disposition: HOME SELF-CARE
--- NOTE | 2017-07-17 14:13 | P.PN ---
Subjective Progress Note Date: 07/17/17 Principal diagnosis: Chest pain This is a 62-year-old female with past medical history significant for diabetes, hyperlipidemia, hypertension, chronic renal disease, recently in the hospital in April at which time she underwent a Lexiscan stress test which revealed pharmacologically induced left ventricular myocardial ischemia, for this reason she underwent cardiac catheterization. Catheterization performed at that time, the RCA could not be cannulated, Dr. Fabián Hickey presumed it was either occluded or heavily calcified, left system free of any significant disease, circumflex appears to be codominant, filling pressures are normal. Medical therapy was advised at that time. Into the patient, since her discharge in April she's been doing fairly well at home. She presents to the hospital on this occasion with symptoms of midsternal, midepigastric chest discomfort which started around 7 PM last evening. She states that she ate her dinner around 6, she has been experiencing some abdominal bloating. Along with the chest discomfort patient states that she had mild nausea and diaphoresis. Breathing overall was stable. Patient did take extra Prilosec with no relief of symptoms. She was also given a sublingual nitroglycerin but states she developed a severe headache from that. Pain does worsen when she takes a deep breath. She did have an EGD and colonoscopy performed in April which revealed antral gastritis, hiatal hernia with mild esophagitis, normal colon. KG on admission showed a normal sinus rhythm no acute changes. Chest X-ray normal. Blood pressure 108/50 with a heart rate in the 60s. White blood cell count 3.7, hemoglobin 10.2, platelet count 217. Sodium 141, potassium 4.5, BUN 39, creatinine 1.7. Troponins 2 have been negative. My examination this morning, patient complains of feeling extremely tired. Chest pain reproducible with deep breathing. 07/17/2017 Patient seen and examined this morning, denies any further chest discomfort. Breathing is stable. Echocardiogram with Doppler study was performed which revealed an ejection fraction of 60-65%. Blood pressure 127/68 with a heart rate in the 60s. Objective - Vital Signs Vital signs: Vital Signs Temp 97.2 F L 07/17/17 08:00 Pulse 65 07/17/17 12:00 Resp 16 07/17/17 12:00 BP 127/68 07/17/17 12:00 Pulse Ox 99 07/17/17 12:00 Intake & Output 07/16/17 07/17/17 07/17/17 18:59 06:59 18:59 Intake Total 230 100 480 Balance 230 100 480 Weight 81 kg Intake: IV 30 Invasive Line 2 30 Intake, IV Titration 100 Amount Magnesium Sulfate-D5w Pmx 100 1 gm In Dextrose/Water 1 100ml.bag @ 100 mls/hr IVPB Q1H MARK Rx#: [id number] Oral 200 480 Other: # Voids 2 1 - Exam PHYSICAL EXAMINATION: HEENT: [Head is atraumatic, normocephalic. Pupils equal, round. Neck is supple. There is no elevated jugular venous pressure.] HEART EXAMINATION: [Heart S1, S2 normal. No murmur or gallop heard.] CHEST EXAMINATION:[ Lungs are clear to auscultation and precussion. No chest wall tenderness is noted on palpation or with deep breathing.] ABDOMEN: [ Soft, nontender. Bowel sounds are heard. No organomegaly noted]. EXTREMITIES:[ 2+ peripheral pulses with no evidence of peripheral edema and no calf tenderness noted]. NEUROLOGIC [patient is awake, alert and oriented -3.] . - Labs CBC & Chem 7: 07/17/17 05:48 07/17/17 05:48 Labs: Abnormal Lab Results - Last 24 Hours (Table) 07/16/17 07/16/17 07/17/17 Range/Units 16:31 21:14 05:48 WBC 2.7 L (3.8-10.6) k/uL RBC 3.23 L (3.80-5.40) m/uL Hgb 10.4 L (11.4-16.0) gm/dL Hct 32.8 L (34.0-46.0) % MCV 101.7 H (80.0-100.0) fL Chloride (98-107) mmol/L BUN (7-17) mg/dL Creatinine (0.52-1.04) mg/dL POC Glucose (mg/dL) 121 H 102 H (75-99) mg/dL Alkaline Phosphatase (38-126) U/L Total Protein (6.3-8.2) g/dL Albumin (3.5-5.0) g/dL 07/17/17 07/17/17 Range/Units 05:48 11:09 WBC (3.8-10.6) k/uL RBC (3.80-5.40) m/uL Hgb (11.4-16.0) gm/dL Hct (34.0-46.0) % MCV (80.0-100.0) fL Chloride 108 H (98-107) mmol/L BUN 25 H (7-17) mg/dL Creatinine 1.59 H (0.52-1.04) mg/dL POC Glucose (mg/dL) 103 H (75-99) mg/dL Alkaline Phosphatase 30 L (38-126) U/L Total Protein 5.4 L (6.3-8.2) g/dL Albumin 3.2 L (3.5-5.0) g/dL Assessment and Plan Plan: Assessment and plan #1 atypical chest discomfort pleuritic in nature. Troponins negative 3. EKG shows normal sinus rhythm with no acute changes. Echocardiogram with Doppler study reveals normal left ventricular systolic function. 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 Circumflex appeared to be codominant. Medical therapy was advised at that time. # 3 hypertension #4 hyperlipidemia # 5 diabetes #6 GERD #7 chronic renal failure #8 hypomagnesemia Plan From cardiology's perspective, patient may be able to be discharged home today. Follow-up appointment with Dr. Fabián Hickey in the office post discharge. DNP note has been reviewed, I agree with a documented findings and plan of care. Patient was seen and examined.
== END 2017-07-17 14:46 | disposition home or self-care (01) ==
LOC: EC 22:39 → 6SEL 23:45
PROVIDERS: ADMIT Internal Medicine; ATTEND Internal Medicine
DX: R07.89 Other chest pain (principal); R10.13 Epigastric pain; K21.9 Gastro-esophageal reflux disease without esophagitis; E83.42 Hypomagnesemia; I12.9 Hypertensive chronic kidney disease with stage 1 through stage 4 chronic kidney disease, or unspecified chronic kidney disease; N18.4 Chronic kidney disease, stage 4 (severe); D63.1 Anemia in chronic kidney disease; D50.9 Iron deficiency anemia, unspecified; E11.22 Type 2 diabetes mellitus with diabetic chronic kidney disease; E78.5 Hyperlipidemia, unspecified; D72.819 Decreased white blood cell count, unspecified; M19.90 Unspecified osteoarthritis, unspecified site; K44.9 Diaphragmatic hernia without obstruction or gangrene; K59.00 Constipation, unspecified; R51 Headache; T46.3X5A Adverse effect of coronary vasodilators, initial encounter; I25.10 Atherosclerotic heart disease of native coronary artery without angina pectoris; Z79.82 Long term (current) use of aspirin; Q15.9 Congenital malformation of eye, unspecified; H54.7 Unspecified visual loss; Z87.19 Personal history of other diseases of the digestive system; Z79.84 Long term (current) use of oral hypoglycemic drugs; Z79.899 Other long term (current) drug therapy; Z88.1 Allergy status to other antibiotic agents; Z88.2 Allergy status to sulfonamides; Z87.891 Personal history of nicotine dependence; Z82.49 Family history of ischemic heart disease and other diseases of the circulatory system; Z80.3 Family history of malignant neoplasm of breast
CPT/HCPCS: 99291 ×2; 96374 ×2; 96375; 36415; 94760; 93005; 93306; 80061; 80053 ×3; 82607; 82728; 82150; 82550 ×2; 82553 ×2; 83540; 83550; 83690; 83735 ×3; 84484 ×2; 85025 ×3; 85610; 85730 ×2; 83036; 71046; G0378 ×3; J1644 ×2; S0106 ×2; J3475

== ENCOUNTER 2018-02-21 04:10 | Inpatient (IN) | payer BC, OTHER ==
[2018-02-21] MEDS ORDERED: MORPHINE SULFATE 4 MG/ML SYRINGE IV STA ×3 (04:19→08:33)
[2018-02-21] MEDS ORDERED: ETOMIDATE 2 MG/ML 10 ML VIAL IVP STA ×2 (04:20→05:05)
--- NOTE | 2018-02-21 04:26 | ED ---
Lower Extremity Injury HPI - General Chief Complaint: Extremity Injury, Lower Stated Complaint: Fall Time Seen by Provider: 02/21/18 04:16 Source: patient, family, EMS Mode of arrival: EMS Limitations: no limitations - History of Present Illness Initial Comments: This patient is 63-year-old woman brought by ambulance to be evaluated after she had a left ankle injury. The patient states she had been walking on stairs , stepped in something she would did not see and then was in her ankle. She felt a snapping sensation, fell and then was not able to bear any weight on her left ankle. She did noted deformity. Family called EMS and they brought her here for evaluation. She also was given fentanyl for pain management. She received an initial dose of 100 g, and then when the pain was somewhat recurring she received an additional 50 g. She denies numbness of the extremity. MD Complaint: ankle injury Onset/Timin -: hour(s) Injury: Ankle: Left Type of Injury: eversion Place: home Improves With: nothing Context: fall Associated Symptoms: snap/pop sensation Treatments Prior to Arrival: splint, other (Fentanyl) - Related Data Home Medications Medication Instructions Recorded Confirmed Fenofibrate,Micronized 200 mg PO DAILY 05/02/17 02/21/18 [Fenofibrate] Ferrous Sulfate [Iron (65 MG 325 mg PO DAILY 05/02/17 02/21/18 Elemental)] Cyclobenzaprine [Flexeril] 10 mg PO HS 05/10/17 02/21/18 Lisinopril [Zestril] 10 mg PO DAILY 05/10/17 02/21/18 Nitroglycerin 0.4 mg PO Q5M PRN 05/10/17 02/21/18 Sucralfate [Carafate] 1 gram PO BID 05/10/17 02/21/18 buPROPion HCL [Wellbutrin SR] 150 mg PO BID 05/10/17 02/21/18 Atorvastatin [Lipitor] 20 mg PO HS 07/15/17 02/21/18 Inulin/Chromium Picolinate [Fiber 1 tab PO DAILY 07/15/17 02/21/18 Gummies Chew] Magnesium Oxide [Batres] 500 mg PO DAILY 07/15/17 02/21/18 Pioglitazone HCl 45 mg PO DAILY 07/15/17 02/21/18 Previous Rx's Medication Instructions Recorded Aspirin 81 mg PO DAILY chew 05/12/17 Metoprolol Tartrate [Lopressor] 50 mg PO DAILY tab 05/12/17 Pantoprazole [Protonix] 40 mg PO AC-BID #60 tablet. 07/17/17 Allergies Allergy/AdvReac Type Severity Reaction Status Date / Time sulfamethoxazole Allergy Unknown Verified 02/21/18 04:15 [From Bactrim] trimethoprim [From Bactrim] Allergy Unknown Verified 02/21/18 04:15 Review of Systems ROS Statement: Those systems with pertinent positive or pertinent negative responses have been documented in the HPI. ROS Other: All systems not noted in ROS Statement are negative. Constitutional: Denies: fever, weakness Respiratory: Denies: cough, dyspnea Cardiovascular: Denies: chest pain, syncope Gastrointestinal: Denies: abdominal pain Musculoskeletal: Reports: as per HPI, arthralgia Skin: Denies: rash Neurological: Denies: headache, weakness, numbness, paresthesias Hematological/Lymphatic: Denies: easy bleeding 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 History of Any Multi-Drug Resistant Organisms: None Reported Past Surgical History: Cholecystectomy, Heart Catheterization, Orthopedic Surgery Additional Past Surgical History / Comment(s): 04/2017 EGD/colonoscopy, past EGD /colonoscopy, "left shoulder surgery for a tendon." Past Anesthesia/Blood Transfusion Reactions: No Reported Reaction Past Psychological History: No Psychological Hx Reported Smoking Status: Former smoker Past Alcohol Use History: Occasional Past Drug Use History: None Reported - Past Family History Mother Family Medical History: Cancer Additional Family Medical History / Comment(s): breast cancer, pacemaker. Father Family Medical History: CVA/TIA, Myocardial Infarction (CA) Additional Family Medical History / Comment(s): Pt does not know at what age father had CA Brother(s) Family Medical History: Congestive Heart Failure (CHF) Additional Family Medical History / Comment(s): CABG General Exam Limitations: no limitations General appearance: alert, in no apparent distress Head exam: Present: atraumatic, normocephalic Eye exam: Present: normal appearance Neck exam: Present: normal inspection, full ROM. Absent: tenderness Respiratory exam: Present: normal lung sounds bilaterally. Absent: respiratory distress, wheezes, rales, rhonchi, stridor, chest wall tenderness Cardiovascular Exam: Present: regular rate, normal rhythm, normal heart sounds. Absent: systolic murmur, diastolic murmur, rubs, gallop GI/Abdominal exam: Present: soft. Absent: distended, tenderness, guarding, rebound, rigid, mass Extremities exam: Present: tenderness, normal capillary refill. Absent: normal inspection (Examination of the left ankle reveals what appears to be lateral dislocation of the foot. There is ecchymosis, swelling, and tenderness.), full ROM (She refuses active and passive range of motion exam of the ankle.), pedal edema, calf tenderness Back exam: Absent: vertebral tenderness Neurological exam: Present: alert. Absent: motor sensory deficit Skin exam: Present: warm, dry, intact, normal color. Absent: rash Course Vital Signs 02/21/18 02/21/18 02/21/18 04:12 04:35 04:57 Temperature 99.1 F Pulse Rate 92 92 90 Respiratory 20 18 18 Rate Blood Pressure 171/74 171/72 157/72 O2 Sat by Pulse 99 98 100 Oximetry 02/21/18 02/21/18 02/21/18 05:34 05:39 05:44 Temperature Pulse Rate 86 84 84 Respiratory 18 18 18 Rate Blood Pressure 165/79 156/77 158/77 O2 Sat by Pulse 99 95 97 Oximetry 02/21/18 02/21/18 02/21/18 05:54 06:00 07:37 Temperature Pulse Rate 84 88 86 Respiratory 18 18 18 Rate Blood Pressure 157/77 158/77 151/69 O2 Sat by Pulse 100 99 97 Oximetry 02/21/18 08:50 Temperature 98.4 F Pulse Rate 87 Respiratory 18 Rate Blood Pressure 135/60 O2 Sat by Pulse 97 Oximetry Procedures - Orthopedic Joint Reduction Joint #1 Consent Obtained: verbal consent Time Out Performed: Yes Side: left Joint Reduction Location: ankle Analgesia: procedural sedation Technique Used: direct manipulation Post-Reduction Neuro Exam: intact Post-Reduction Vascular Exam: intact Post Reduction X-Ray Obtained: Yes Post Reduction X-Ray Results: reduced Splint Applied: Yes Patient Tolerated Procedure: well, no complications Additional Comments: The patient did require second attempt at closed reduction to obtain satisfactory alignment. No complications. - Orthopedic Splinting/Casting Injury #1 Side: left Lower Extremity Injury Location: ankle Lower Extremity Immobilizer: stirrup splint, synthetic pre-padded splint - Procedural Sedation Procedural Sedation Start Time: 04:35 Procedural Sedation Stop Time: 04:53 Indications: fracture/dislocation reduction ASA Class: II Mallampati Airway Score: 2 Preparation: quality assurance monitor body applied, pulse oximeter, capnometry used, supplemental O2 applied, IV secured IV Etomidate Dose (mgs): 14 Complications: none Patient Tolerated Procedure: well, no complications Additional Comments: Patient did require a second procedural sedation to achieve satisfactory alignment, using the same 14 mg dose of etomidate. Again no complications with either sedation. Medical Decision Making - Medical Decision Making Patient's 63-year-old woman who had a fall tonight on stairs. She presents with tib-fib fracture and dislocated ankle. Closed reduction and splinting performed, which did require second attempt to achieve satisfactory alignment. The patient then did attempt to ambulate, was not able to do so even with assistance of a walker. She does live in a residence that requires her to get up flights of stairs and she will not feel would do this. Case is discussed with Dr. Booth who will admit the patient to have pain management and possible placement. Disposition Clinical Impression: Ankle fracture, left, Dislocation of ankle, left, closed Disposition: ADMITTED IP TO THIS [facility] Condition: Fair
--- NOTE | 2018-02-21 04:33 | XR ---
EXAMINATION TYPE: XR ankle limited LT DATE OF EXAM: 02/21/2018 COMPARISON: NONE HISTORY: Fall. Deformity. TECHNIQUE: 2 views FINDINGS: There is a lateral dislocation of the talus. There is fracture of the distal fibula and the medial malleolus with significant displacement. IMPRESSION: Lateral fracture dislocation of the ankle joint with bimalleolar fracture.
--- NOTE | 2018-02-21 04:34 | XR ---
EXAMINATION TYPE: XR foot limited LT DATE OF EXAM: 02/21/2018 COMPARISON: NONE HISTORY: Fall with pain TECHNIQUE: 2 views FINDINGS: Metatarsals are intact. Toes appear intact. There is an Achilles calcaneal spur. There is d eformity of the ankle related to a lateral fracture dislocation of the ankle joint. IMPRESSION: Fracture dislocation of the ankle joint. No metatarsal fracture. Tarsal bones appear inta ct.
--- NOTE | 2018-02-21 05:12 | XR ---
EXAM: XR Left Ankle Complete, 3 or More Views CLINICAL HISTORY: ITS.REASON XR Reason: Post Reduction TECHNIQUE: Frontal, lateral and oblique views of the left ankle. COMPARISON: 02/21/18 earlier time IMPRESSION: Status post reduction with improved anatomic alignment.
--- NOTE | 2018-02-21 06:13 | XR ---
EXAM: XR Left Ankle Complete, 3 or More Views CLINICAL HISTORY: ITS.REASON XR Reason: post-reduction TECHNIQUE: Frontal, lateral and oblique views of the left ankle. COMPARISON: 02/21/18 at 0455 hrs. FINDINGS: Bones/joints: Overlying cast/splint material obscures fine bone detail. Interval improved alignment about the tibiotalar joint status post reduction. There is persistent widening of the joint space anteriorly and dislocation about the tibiotalar joint. Fracture of the distal fibula with minimal posterior displacement. Fracture of the medial malleolus and posterior margin of the distal tibia. Small heel spur in the calcaneus Soft tissues: Unremarkable. IMPRESSION: Slight improved alignment status post reduction with mild persistent posterior dislocation about the tibiotalar joint. Trimalleolar fracture Additional findings as noted above
[2018-02-21] MEDS ORDERED: NALOXONE 0.4 MG/ML 1 ML VIAL IV PRN (08:33)
[2018-02-21] MEDS: SODIUM CHLORIDE 0.9% 1,000 ML IV SCH ×2 (08:45→10:23)
[2018-02-21 09:50] VITALS: BMI 32.1
[2018-02-21] MEDS: HYDROcodone/APAP 5-325MG 1 EACH TAB PO PRN ×3 (09:51→22:21)
--- NOTE | 2018-02-21 09:55 | P.HPOR ---
History of Present Illness H&P Date: 02/21/18 Chief Complaint: Left ankle fracture This is a 63-year-old female who is admitted to the emergency department after falling down her stairs and sustaining injury to her left ankle. She is noted to have a bimalleolar fracture dislocation. Her fracture is reduced in the emergency department. She is admitted for pain management. 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 History of Any Multi-Drug Resistant Organisms: None Reported Past Surgical History: Cholecystectomy, Heart Catheterization, Orthopedic Surgery Additional Past Surgical History / Comment(s): 04/2017 EGD/colonoscopy, past EGD /colonoscopy, "left shoulder surgery for a tendon." Past Anesthesia/Blood Transfusion Reactions: No Reported Reaction Past Psychological History: No Psychological Hx Reported Smoking Status: Former smoker Past Alcohol Use History: Occasional Past Drug Use History: None Reported - Past Family History Mother Family Medical History: Cancer Additional Family Medical History / Comment(s): breast cancer, pacemaker. Father Family Medical History: CVA/TIA, Myocardial Infarction ([place]) Additional Family Medical History / Comment(s): Pt does not know at what age father had NH Brother(s) Family Medical History: Congestive Heart Failure (CHF) Additional Family Medical History / Comment(s): CABG Medications and Allergies Home Medications Medication Instructions Recorded Confirmed Type Fenofibrate,Micronized 200 mg PO DAILY 05/02/17 02/21/18 History [Fenofibrate] Ferrous Sulfate [Iron (65 MG 325 mg PO DAILY 05/02/17 02/21/18 History Elemental)] Cyclobenzaprine [Flexeril] 10 mg PO HS 05/10/17 02/21/18 History Lisinopril [Zestril] 10 mg PO DAILY 05/10/17 02/21/18 History Nitroglycerin 0.4 mg PO Q5M PRN 05/10/17 02/21/18 History Sucralfate [Carafate] 1 gram PO BID 05/10/17 02/21/18 History buPROPion HCL [Wellbutrin SR] 150 mg PO BID 05/10/17 02/21/18 History Aspirin 81 mg PO DAILY chew 05/12/17 02/21/18 Rx Metoprolol Tartrate [Lopressor] 50 mg PO DAILY tab 05/12/17 02/21/18 Rx Atorvastatin [Lipitor] 20 mg PO HS 07/15/17 02/21/18 History Inulin/Chromium Picolinate [Fiber 1 tab PO DAILY 07/15/17 02/21/18 History Gummies Chew] Magnesium Oxide [Batres] 500 mg PO DAILY 07/15/17 02/21/18 History Pioglitazone HCl 45 mg PO DAILY 07/15/17 02/21/18 History Pantoprazole [Protonix] 40 mg PO AC-BID #60 tablet. 07/17/17 02/21/18 Rx Allergies Allergy/AdvReac Type Severity Reaction Status Date / Time sulfamethoxazole Allergy Unknown Verified 02/21/18 04:15 [From Bactrim] trimethoprim [From Bactrim] Allergy Unknown Verified 02/21/18 04:15 Physical Examination This is a pleasant 63-year-old female in no acute distress. She is alert and oriented 3. Exam of the left lower extremity reveals a splint intact. The foot is in plantarflexion. She is able to wiggle her toes. She has normal sensation to the toes. The splint is removed to apply a new splint. There is significant ecchymosis and swelling to the ankle. Skin is intact. Pedal pulses +2/4. Results X-rays reveal a bimalleolar fracture dislocation of the left ankle. Postreduction films show improved alignment without complete reduction. Assessment and Plan (1) Ankle fracture, left Current Visit: Yes Status: Acute Code(s): S82.892A - OTH FRACTURE OF LEFT LOWER LEG, INIT FOR CLOS FX SNOMED Code(s): 56116887 (2) Dislocation of ankle, left, closed Current Visit: Yes Status: Acute Code(s): S93.05XA - DISLOCATION OF LEFT ANKLE JOINT, INITIAL ENCOUNTER SNOMED Code(s): 226474023 Plan: The clinical and x-ray findings are discussed the patient. A new splint is applied with molding to improve reduction. The patient tolerated the procedure fairly well. We will continue with pain management. It is discussed the patient that she most likely will not have surgery until next week to allow for swelling to resolve. She is to be nonweightbearing with a walker or crutches. Anticipate discharge to home tomorrow.
[2018-02-21] MEDS: METOPROLOL TARTRATE 50 MG TAB PO SCH (10:22)
[2018-02-21] MEDS: FENOFIBRATE 160 MG TAB PO SCH (10:22)
[2018-02-21] MEDS: buPROPion SR 150 MG TABLET.ER PO SCH ×2 (10:22→22:05)
[2018-02-21] MEDS: LISINOPRIL 10 MG TAB PO SCH (10:22)
[2018-02-21] MEDS: ASPIRIN 81 MG PO SCH (10:22)
[2018-02-21] MEDS: PIOGLITAZONE 45 MG TAB PO SCH (10:23)
[2018-02-21] MEDS: SUCRALFATE 1 GM TAB PO SCH ×2 (10:23→22:05)
--- NOTE | 2018-02-21 10:57 | XR ---
EXAMINATION TYPE: XR ankle limited LT DATE OF EXAM: 02/21/2018 COMPARISON: 02/21/2018 HISTORY: Post reduction FINDINGS: Two views of the ankle demonstrate dislocation of the tibia and fibula relative to the talus with hiral dence of a oblique fracture through the distal fibula and medial malleolus extending to the articular surface. Posterior tibial fracture also suspected. Findings compatible trimalleolar fracture. IMPRESSION: 1. Persistent trimalleolar fracture with dislocation.
[2018-02-21] MEDS ORDERED: DIAZEPAM 5 MG/ML 2 ML INJ IVP STA (11:24)
[2018-02-21] MEDS ORDERED: LIDOCAINE 2% INJ 20 MG/ML (20 ML MDV) SQ STA (11:26)
[2018-02-21] MEDS ORDERED: DIAZEPAM 5 MG/ML (10 ML MDV) IVP STA (11:31)
--- NOTE | 2018-02-21 11:32 | P.CONS ---
History of Present Illness - Reason for Consult Consult date: 02/21/18 Medical management Requesting physician: Lesli eDe - History of Present Illness Adriana Calderón is a 63 year old female patient of Dr. Snowden. Patient presented to the emergency department after falling down her stairs sustaining injury to her left ankle. Patient states that it was in the middle the night nurse to place something on the stairs that she was unaware of it she tripped and fell. Patient states she heard and felt a pop in her left ankle. Patient denies hitting her head. Patient denies any alcohol or drug associated with event. Patient was noted to have a bimalleolar fracture dislocation. Reduction in the emergency department along with splint being applied with molding to improve reduction to left ankle. Per ortho services surgery will likely be next week to allow swelling to resolve. Patient currently admitted for pain management. Patient has a known past medical history of diabetes mellitus, I disorder, GERD, hyperlipidemia, hypertension, osteoarthritis, renal disease stage IV and heart catheterization 1 year ago. At this time patient denies chest pain or shortness of breath. Pain meds per Ortho services. Patient denies nausea vomiting or diarrhea. Patient denies any urinary burning or frequency. Per ortho anticipate discharge home tomorrow. 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 History of Any Multi-Drug Resistant Organisms: None Reported Past Surgical History: Cholecystectomy, Heart Catheterization, Orthopedic Surgery Additional Past Surgical History / Comment(s): 04/2017 EGD/colonoscopy, past EGD /colonoscopy, "left shoulder surgery for a tendon." Past Anesthesia/Blood Transfusion Reactions: No Reported Reaction Past Psychological History: No Psychological Hx Reported Smoking Status: Former smoker Past Alcohol Use History: Occasional Past Drug Use History: None Reported - Past Family History Mother Family Medical History: Cancer Additional Family Medical History / Comment(s): breast cancer, pacemaker. Father Family Medical History: CVA/TIA, Myocardial Infarction ([place]) Additional Family Medical History / Comment(s): Pt does not know at what age father had [place] Brother(s) Family Medical History: Congestive Heart Failure (CHF) Additional Family Medical History / Comment(s): CABG Medications and Allergies Home Medications Medication Instructions Recorded Confirmed Type Fenofibrate,Micronized 200 mg PO DAILY 05/02/17 02/21/18 History [Fenofibrate] Ferrous Sulfate [Iron (65 MG 325 mg PO BID 05/02/17 02/21/18 History Elemental)] Cyclobenzaprine [Flexeril] 10 mg PO HS 05/10/17 02/21/18 History Nitroglycerin 0.4 mg PO Q5M PRN 05/10/17 02/21/18 History Sucralfate [Carafate] 1 gram PO BID 05/10/17 02/21/18 History buPROPion HCL [Wellbutrin SR] 150 mg PO BID 05/10/17 02/21/18 History Aspirin 81 mg PO DAILY chew 05/12/17 02/21/18 Rx Metoprolol Tartrate [Lopressor] 50 mg PO DAILY tab 05/12/17 02/21/18 Rx Atorvastatin [Lipitor] 20 mg PO HS 07/15/17 02/21/18 History Inulin/Chromium Picolinate [Fiber 1 tab PO DAILY 07/15/17 02/21/18 History Gummies Chew] Magnesium Oxide [Batres] 1,000 mg PO DAILY 07/15/17 02/21/18 History Pioglitazone HCl 45 mg PO DAILY 07/15/17 02/21/18 History Fiber Caps 1 cap PO DAILY 02/21/18 02/21/18 History Lisinopril [Zestril] 5 mg PO DAILY 02/21/18 02/21/18 History Nitroglycerin Sl Tabs [Nitrostat] 0.4 mg SUBLINGUAL Q5M PRN 02/21/18 02/21/18 History Pantoprazole Sodium [Protonix] 40 mg PO DAILY 02/21/18 02/21/18 History Sertraline [Zoloft] 50 mg PO DAILY 02/21/18 02/21/18 History Allergies Allergy/AdvReac Type Severity Reaction Status Date / Time sulfamethoxazole Allergy Unknown Verified 02/21/18 10:33 [From Bactrim] trimethoprim [From Bactrim] Allergy Unknown Verified 02/21/18 10:33 Physical Exam Vitals: Vital Signs Temp Pulse Pulse Resp BP BP Pulse Ox 02/21/18 09:23 98.4 F 99 16 136/80 93 L 02/21/18 08:50 98.4 F 87 18 135/60 97 02/21/18 07:37 86 18 151/69 97 02/21/18 06:00 88 18 158/77 99 02/21/18 05:54 84 18 157/77 100 02/21/18 05:44 84 18 158/77 97 02/21/18 05:39 84 18 156/77 95 02/21/18 05:34 86 18 165/79 99 02/21/18 04:57 90 18 157/72 100 02/21/18 04:35 92 18 171/72 98 02/21/18 04:12 99.1 F 92 20 171/74 99 Intake and Output 02/20/18 02/21/18 02/21/18 22:59 06:59 14:59 Other: Weight 77.111 kg 77.111 kg Head normocephalic Neck supple Lungs clear to auscultation bilaterally no wheezing or crackles Heart regular rate and rhythm S1-S2, no rub or gallop Abdomen is soft nontender nondistended positive bowel sounds no hepatosplenomegaly Extremities no edema. Left lower extremity Tommie wrap clean dry and intact. increased edema to left lower extremity Neuro alert and orientated to 3 Assessment and Plan Assessment: 1. Fall with bimalleolar lateral fracture and dislocation to the left ankle joint. Patient currently admitted for pain management. Surgery planned for next week due to increased swelling of left foot at this time. Reduction in emergency room. Patient currently in reduction sling. Pain meds per Ortho surgical services. 2. History of diabetes mellitus. Home Actos ordered. Accu-Cheks have been added. A1c has been ordered. 3. History of chronic kidney disease stage IV. Patient states she follows outpatient with nephrology services. Labs have been ordered 4. History of GERD. Continue home medications 5. History of hyperlipidemia. Continue Lipitor and fenofibrate. 6. History of essential hypertension 7. History of cardiac catheterization in April 2017. 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 Circumflex appeared to be codominant medically managed. Patient states she follows outpatient with cardiology. Patient currently on aspirin 81 mg Thank you for this consultation we will continue to follow patient closely throughout stay. Time with Patient: Greater than 30 (Greater than 60% of the total time spent in counseling and coordination of care. I performed an examination of the patient and discussed their management with the Nurse Practitioner. I have reviewed the Nurse Practitioner's notes and agree with the documented findings and plan of care)
[2018-02-21] MEDS: MORPHINE SULFATE 4 MG/ML SYRINGE IV PRN ×3 (11:35→22:04)
[2018-02-21] MEDS: MAGNESIUM OXIDE 400 MG TAB PO SCH (11:35)
[2018-02-21] MEDS: FERROUS SULFATE 325 MG TAB PO SCH (11:35)
[2018-02-21 11:38] LABS: Basophils % (A) 1 %; Eosinophils % (A) 1 %; HCT 32.8 % (34.0-46.0); HGB 10.2 gm/dL (11.4-16.0); Lymphocytes # (A) 0.7 k/uL (1.0-4.8); Lymphocytes % (A) 14 %; Macrocytosis Slight; Mean Platelet Volume 6.6; Monocytes # (A) 0.4 k/uL (0-1.0); Monocytes % (A) 8 %; Neutrophils # (A) 3.8 k/uL (1.3-7.7); Neutrophils % (A) 76 %; Platelet Count 206 k/uL (150-450); RBC 3.18 m/uL (3.80-5.40); RDW 13.6 % (11.5-15.5); WBC 5.1 k/uL (3.8-10.6)
[2018-02-21 11:47] LABS: Albumin 3.4 g/dL (3.5-5.0); Calcium 9.1 mg/dL (8.4-10.2); Potassium 4.8 mmol/L (3.5-5.1); Total Bilirubin 0.5 mg/dL (0.2-1.3); Total Protein 5.6 g/dL (6.3-8.2)
[2018-02-21 11:51] LABS: Glucose,Whole Blood 99 mg/dL (75-99)
--- NOTE | 2018-02-21 12:46 | XR ---
EXAMINATION TYPE: XR ankle limited LT DATE OF EXAM: 02/21/2018 COMPARISON: 02/21/2018 HISTORY: Closed reduction TECHNIQUE: One view submitted FINDINGS: Previously noted trimalleolar fractures involving the tibia and fibula are again noted. The re is persistent subluxation or dislocation of the tibia and fibula IMPRESSION: Persistent fracture or dislocation
--- NOTE | 2018-02-21 12:46 | XR ---
EXAMINATION TYPE: XR ankle limited LT DATE OF EXAM: 02/21/2018 COMPARISON: NONE HISTORY: Closed reduction TECHNIQUE: One view submitted FINDINGS: Previously noted trimalleolar fractures involving the tibia and fibula are again noted. The re is persistent subluxation or dislocation of the tibia and fibula. IMPRESSION: Persistent fracture or dislocation
--- NOTE | 2018-02-21 12:47 | XR ---
EXAMINATION TYPE: XR ankle limited LT DATE OF EXAM: 02/21/2018 COMPARISON: 02/21/2018 HISTORY: Closed reduction TECHNIQUE: One view submitted FINDINGS: Displaced fractures involving the medial and lateral malleolus and posterior tibia noted. T here is complete dislocation of the tibia and fibula relative to the ankle joint. IMPRESSION: Fracture dislocation
--- NOTE | 2018-02-21 12:48 | XR ---
EXAMINATION TYPE: XR ankle limited LT DATE OF EXAM: 02/21/2018 COMPARISON: NONE HISTORY: Closed reduction TECHNIQUE: One view submitted FINDINGS: Previously noted trimalleolar fractures involving the tibia and fibula are again noted. The re is persistent subluxation or dislocation of the tibia and fibula IMPRESSION: Persistent fracture and dislocation
--- NOTE | 2018-02-21 12:49 | XR ---
EXAMINATION TYPE: XR ankle limited LT DATE OF EXAM: 02/21/2018 COMPARISON: NONE HISTORY: Closed reduction TECHNIQUE: One view submitted FINDINGS: Fractures involving the tibia and fibula are again noted. There does appear to be slight as ymmetry of the ankle mortise and could not exclude a degree of subluxation of the tibia and fibula. IMPRESSION: See above
--- NOTE | 2018-02-21 12:50 | XR ---
EXAMINATION TYPE: XR ankle limited LT DATE OF EXAM: 02/21/2018 COMPARISON: 02/21/2018 HISTORY: Closed reduction TECHNIQUE: One view FINDINGS: Previously noted trimalleolar fractures involving the tibia and fibula are again noted. The re is persistent subluxation or dislocation of the tibia and fibula IMPRESSION: Fracture = dislocation
[2018-02-21 16:48] LABS: Glucose,Whole Blood 179 mg/dL (75-99)
[2018-02-21] MEDS: ONDANSETRON 4 MG/2 ML VIAL IVP PRN (18:04)
[2018-02-21] MEDS: PANTOPRAZOLE 40 MG TABLET PO SCH (18:05)
[2018-02-21 20:13] LABS: Glucose,Whole Blood 128 mg/dL (75-99)
[2018-02-21] MEDS ORDERED: ATORVASTATIN 20 MG TAB PO SCH (21:00)
[2018-02-21] MEDS: CYCLOBENZAPRINE 10 MG TAB PO SCH (22:05)
[2018-02-21 22:29] LABS: Hemoglobin A1C 5.7 % (4.0-6.0)
[2018-02-22] MEDS: MORPHINE SULFATE 4 MG/ML SYRINGE IV PRN ×4 (03:34→21:57)
[2018-02-22] MEDS: HYDROcodone/APAP 5-325MG 1 EACH TAB PO PRN ×2 (05:19→11:37)
[2018-02-22 06:58] LABS: Glucose,Whole Blood 103 mg/dL (75-99)
[2018-02-22] MEDS: PANTOPRAZOLE 40 MG TABLET PO SCH ×2 (07:18→18:04)
[2018-02-22 07:45] LABS: Basophils % (A) 0 %; Eosinophils # (A) 0.1 k/uL (0-0.7); Eosinophils % (A) 2 %; HCT 32.4 % (34.0-46.0); Hypochromasia Slight; Lymphocytes # (A) 0.7 k/uL (1.0-4.8); Lymphocytes % (A) 17 %; MCH 31.4 pg (25.0-35.0); MCHC 30.8 g/dL (31.0-37.0); MCV 101.8 fL (80.0-100.0); Macrocytosis Slight; Monocytes # (A) 0.4 k/uL (0-1.0); Monocytes % (A) 9 %; Neutrophils # (A) 2.9 k/uL (1.3-7.7); Neutrophils % (A) 70 %; Platelet Count 200 k/uL (150-450); RBC 3.19 m/uL (3.80-5.40); RDW 13.1 % (11.5-15.5); WBC 4.1 k/uL (3.8-10.6)
[2018-02-22 07:55] LABS: Potassium 4.8 mmol/L (3.5-5.1)
[2018-02-22 07:56] LABS: Albumin 3.1 g/dL (3.5-5.0); Calcium 9.3 mg/dL (8.4-10.2); Total Bilirubin 0.5 mg/dL (0.2-1.3); Total Protein 5.3 g/dL (6.3-8.2)
[2018-02-22] MEDS: METOPROLOL TARTRATE 50 MG TAB PO SCH (08:53)
[2018-02-22] MEDS: FENOFIBRATE 160 MG TAB PO SCH (08:53)
[2018-02-22] MEDS: LISINOPRIL 10 MG TAB PO SCH (08:53)
[2018-02-22] MEDS: PIOGLITAZONE 45 MG TAB PO SCH (08:54)
[2018-02-22] MEDS: ASPIRIN 81 MG PO SCH (08:54)
[2018-02-22] MEDS: SUCRALFATE 1 GM TAB PO SCH ×3 (08:54→22:05)
[2018-02-22] MEDS: buPROPion SR 150 MG TABLET.ER PO SCH ×3 (08:54→22:05)
[2018-02-22] MEDS: FERROUS SULFATE 325 MG TAB PO SCH (11:37)
[2018-02-22] MEDS: MAGNESIUM OXIDE 400 MG TAB PO SCH (11:37)
[2018-02-22 11:43] LABS: Glucose,Whole Blood 119 mg/dL (75-99)
--- NOTE | 2018-02-22 13:33 | P.PN ---
Subjective Progress Note Date: 02/22/18 Adriana Calderón is a 63 year old female patient of Dr. Snowden. Patient presented to the emergency department after falling down her stairs sustaining injury to her left ankle. Patient states that it was in the middle the night nurse to place something on the stairs that she was unaware of it she tripped and fell. Patient states she heard and felt a pop in her left ankle. Patient denies hitting her head. Patient denies any alcohol or drug associated with event. Patient was noted to have a bimalleolar fracture dislocation. Reduction in the emergency department along with splint being applied with molding to improve reduction to left ankle. Per ortho services surgery will likely be next week to allow swelling to resolve. Patient currently admitted for pain management. Patient has a known past medical history of diabetes mellitus, I disorder, GERD, hyperlipidemia, hypertension, osteoarthritis, renal disease stage IV and heart catheterization 1 year ago. At this time patient denies chest pain or shortness of breath. Pain meds per Ortho services. Patient denies nausea vomiting or diarrhea. Patient denies any urinary burning or frequency. Per ortho anticipate discharge home tomorrow. 01/23/2018 patient still reports pain left ankle. Awaiting final plans per orthopedic service. Unfortunately nursing staff just called me and reported that patient and is having difficulty swallowing her lunch she's also having coughing episodes with it. Patient will be made nothing by mouth speech therapy consulted and chest x-ray has been ordered. She had mildly elevated LFTs Lipitor has been discontinued. LFTs are trending down. Hemoglobin 10 patient denies any blood or black stools. Iron studies ordered. Denies any chest pain or shortness of breath. Denies any nausea or vomiting. Is reporting constipation been 2 days since last bowel movement stool softeners have been added. Objective - Vital Signs Vital signs: Vital Signs Temp 98.8 F 02/22/18 07:10 Pulse 72 02/22/18 07:10 Resp 14 02/22/18 07:10 BP 106/63 02/22/18 07:10 Pulse Ox 98 02/22/18 07:10 Intake & Output 02/21/18 02/22/18 02/22/18 18:59 06:59 18:59 Intake Total 1120 Balance 1120 Weight 77.111 kg Intake: Intake, IV Titration 320 Amount Sodium Chloride 0.9% 1, 320 000 ml @ 20 mls/hr IV . Q24H [facility] Rx#:[id number] Oral 800 Other: Voiding Method Bedpan Bedpan Bedpan # Voids 2 3 - Exam Head normocephalic Neck supple Lungs clear to auscultation bilaterally no wheezing or crackles Heart regular rate and rhythm S1-S2, no rub or gallop Abdomen is soft nontender nondistended positive bowel sounds no hepatosplenomegaly Extremities no edema left ankle is Tommie wrapped Neuro alert and orientated to 3 - Labs CBC & Chem 7: 02/22/18 06:59 02/22/18 06:59 Labs: Abnormal Lab Results - Last 24 Hours (Table) 02/21/18 02/21/18 02/22/18 Range/Units 16:43 20:11 06:52 RBC (3.80-5.40) m/uL Hgb (11.4-16.0) gm/dL Hct (34.0-46.0) % MCV (80.0-100.0) fL MCHC (31.0-37.0) g/dL Lymphocytes # (1.0-4.8) k/uL Chloride (98-107) mmol/L BUN (7-17) mg/dL Creatinine (0.52-1.04) mg/dL POC Glucose (mg/dL) 179 H 128 H 103 H (75-99) mg/dL AST (14-36) U/L ALT (9-52) U/L Alkaline Phosphatase (38-126) U/L Total Protein (6.3-8.2) g/dL Albumin (3.5-5.0) g/dL 02/22/18 02/22/18 02/22/18 Range/Units 06:59 06:59 11:41 RBC 3.19 L (3.80-5.40) m/uL Hgb 10.0 L (11.4-16.0) gm/dL Hct 32.4 L (34.0-46.0) % MCV 101.8 H (80.0-100.0) fL MCHC 30.8 L (31.0-37.0) g/dL Lymphocytes # 0.7 L (1.0-4.8) k/uL Chloride 108 H (98-107) mmol/L BUN 35 H (7-17) mg/dL Creatinine 1.62 H (0.52-1.04) mg/dL POC Glucose (mg/dL) 119 H (75-99) mg/dL AST 56 H (14-36) U/L ALT 53 H (9-52) U/L Alkaline Phosphatase 36 L (38-126) U/L Total Protein 5.3 L (6.3-8.2) g/dL Albumin 3.1 L (3.5-5.0) g/dL Assessment and Plan Assessment: 1. Fall with bimalleolar lateral fracture and dislocation to the left ankle joint. Patient currently admitted for pain management. Surgery planned for next week due to increased swelling of left foot at this time. Reduction in emergency room. Patient currently in reduction sling. Pain meds per Ortho surgical services. Await further orthopedic recommendations 2. History of diabetes mellitus. Home Actos ordered. Accu-Cheks have been added. A1c 5.7 3. History of chronic kidney disease stage IV. Patient states she follows outpatient with nephrology services. 4. History of GERD. Continue home medications 5. History of hyperlipidemia. 6. History of essential hypertension 7. History of cardiac catheterization in April 2017. Per records cardiac catheterization revealed a CONDENSER CLEANER of the right coronary artery, left system was free of any significant disease. Circumflex appeared to be codominant medically managed. Patient states she follows outpatient with cardiology. Patient currently on aspirin 81 mg 8. Elevated LFTs: Discontinue Lipitor and fenofibrate. Repeat labs in a.m. 9. Iron deficiency anemia with a hemoglobin of 10. No signs of active bleeding. Check iron studies. MCV elevated of 101.8 also will check a B12 level. 10. Difficulty with swallowing and coughing episode during lunch. Check a chest x-ray rule out aspiration. Consult speech therapy for swallow evaluation. We'll make patient nothing by mouth for now DVT prophylaxis subcu heparin I performed an examination of the patient and discussed their management with the physician Hinging Machine Operator. I have reviewed the Physician Hinging Machine Operator's notes and agree with the documented findings and plan of care
--- NOTE | 2018-02-22 14:15 | XR ---
EXAMINATION TYPE: XR chest 2V DATE OF EXAM: 02/22/2018 COMPARISON: 07/15/2017 TECHNIQUE: PA and lateral views submitted. HISTORY: Pain FINDINGS: The lungs are clear and there is no pneumothorax, pleural effusion, or focal pneumonia. Arthropathy shoulders. Subsegmental linear changes at the left lung base. Hypertrophic and degenerative change o f the spine. IMPRESSION: 1. Left basilar atelectasis or infiltrate correlate clinically..
[2018-02-22] MEDS: DOCUSATE 100 MG CAP PO SCH ×3 (14:25→22:05)
[2018-02-22 17:06] LABS: Glucose,Whole Blood 117 mg/dL (75-99)
--- NOTE | 2018-02-22 17:28 | P.PN ---
Subjective Progress Note Date: 02/22/18 Principal diagnosis: Left bimalleolar fracture dislocation. This is a 61-year-old female who we are following regarding her left ankle fracture. She is noted to have a fairly unstable bimalleolar fracture dislocation which is currently reduced and in a short leg splint. The patient continues to have pain. She has not yet been up with a walker or in a chair. Objective - Vital Signs Vital signs: Vital Signs Temp 98.5 F 02/22/18 15:00 Pulse 61 02/22/18 15:00 Resp 16 02/22/18 15:00 BP 96/57 02/22/18 15:00 Pulse Ox 95 02/22/18 15:00 Intake & Output 02/21/18 02/22/18 02/22/18 18:59 06:59 18:59 Intake Total 1120 140 Balance 1120 140 Weight 77.111 kg Intake: Intake, IV Titration 320 140 Amount Sodium Chloride 0.9% 1, 320 140 000 ml @ 20 mls/hr IV . Q24H [facility] Rx#:[id number] Oral 800 Other: Voiding Method Bedpan Bedpan Bedpan # Voids 2 3 2 - Exam This is a pleasant 61-year-old female in no acute distress. She is alert and oriented 3. Her family is present at bedside. Exam of the lower extremities reveals a splint is in place. She has full foot and ankle motion without difficulty or pain. Neurovascular status to the lower extremity is intact. - Labs CBC & Chem 7: 02/22/18 06:59 02/22/18 06:59 Labs: Abnormal Lab Results - Last 24 Hours (Table) 02/21/18 02/22/18 02/22/18 Range/Units 20:11 06:52 06:59 RBC 3.19 L (3.80-5.40) m/uL Hgb 10.0 L (11.4-16.0) gm/dL Hct 32.4 L (34.0-46.0) % MCV 101.8 H (80.0-100.0) fL MCHC 30.8 L (31.0-37.0) g/dL Lymphocytes # 0.7 L (1.0-4.8) k/uL Chloride (98-107) mmol/L BUN (7-17) mg/dL Creatinine (0.52-1.04) mg/dL POC Glucose (mg/dL) 128 H 103 H (75-99) mg/dL AST (14-36) U/L ALT (9-52) U/L Alkaline Phosphatase (38-126) U/L Total Protein (6.3-8.2) g/dL Albumin (3.5-5.0) g/dL 02/22/18 02/22/18 02/22/18 Range/Units 06:59 11:41 16:57 RBC (3.80-5.40) m/uL Hgb (11.4-16.0) gm/dL Hct (34.0-46.0) % MCV (80.0-100.0) fL MCHC (31.0-37.0) g/dL Lymphocytes # (1.0-4.8) k/uL Chloride 108 H (98-107) mmol/L BUN 35 H (7-17) mg/dL Creatinine 1.62 H (0.52-1.04) mg/dL POC Glucose (mg/dL) 119 H 117 H (75-99) mg/dL AST 56 H (14-36) U/L ALT 53 H (9-52) U/L Alkaline Phosphatase 36 L (38-126) U/L Total Protein 5.3 L (6.3-8.2) g/dL Albumin 3.1 L (3.5-5.0) g/dL Assessment and Plan (1) Ankle fracture, left Current Visit: Yes Status: Acute Code(s): S82.892A - OTH FRACTURE OF LEFT LOWER LEG, INIT FOR CLOS FX SNOMED Code(s): 16058081 (2) Dislocation of ankle, left, closed Current Visit: Yes Status: Acute Code(s): S93.05XA - DISLOCATION OF LEFT ANKLE JOINT, INITIAL ENCOUNTER SNOMED Code(s): 920674893 Plan: The clinical and x-ray findings are discussed the patient. We discussed surgical intervention within the next 7-10 days. The patient evaluated by Dr. Booth as well. She will most likely be discharged to home on Sunday and follow- up in the office on Sunday for surgical planning.
[2018-02-22 19:28] LABS: Iron Saturation 5.29 (12.00-45.00)
[2018-02-22] MEDS ORDERED: SODIUM CHLORIDE 0.9% 500 ML IV ONE (20:24)
[2018-02-22] MEDS: CYCLOBENZAPRINE 10 MG TAB PO SCH ×2 (21:56→22:05)
[2018-02-22] MEDS: HEPARIN SODIUM,PORCINE 5,000 UNIT/ML 1 ML VIAL SQ SCH (21:56)
[2018-02-22 22:56] LABS: Glucose,Whole Blood 78 mg/dL (75-99)
[2018-02-23] MEDS: MORPHINE SULFATE 4 MG/ML SYRINGE IV PRN (04:18)
[2018-02-23 04:28] LABS: Glucose,Whole Blood 67 mg/dL (75-99)
[2018-02-23 04:59] LABS: Glucose,Whole Blood 83 mg/dL (75-99)
[2018-02-23] MEDS: SODIUM CHLORIDE 0.9% 1,000 ML IV SCH ×3 (05:51→19:55)
[2018-02-23 07:40] LABS: Basophils % (A) 1 %; Eosinophils % (A) 1 %; HGB 9.3 gm/dL (11.4-16.0); Hypochromasia Slight; Lymphocytes # (A) 0.7 k/uL (1.0-4.8); Lymphocytes % (A) 19 %; MCH 31.4 pg (25.0-35.0); MCHC 30.9 g/dL (31.0-37.0); MCV 101.7 fL (80.0-100.0); Macrocytosis Slight; Monocytes # (A) 0.3 k/uL (0-1.0); Monocytes % (A) 8 %; Neutrophils # (A) 2.4 k/uL (1.3-7.7); Neutrophils % (A) 70 %; Platelet Count 174 k/uL (150-450); RBC 2.95 m/uL (3.80-5.40); RDW 13.3 % (11.5-15.5); WBC 3.5 k/uL (3.8-10.6)
[2018-02-23 08:04] LABS: Albumin 2.9 g/dL (3.5-5.0); Calcium 8.8 mg/dL (8.4-10.2); Potassium 4.6 mmol/L (3.5-5.1); Total Bilirubin 0.4 mg/dL (0.2-1.3)
[2018-02-23] MEDS: SUCRALFATE 1 GM TAB PO SCH ×2 (08:52→20:01)
[2018-02-23] MEDS: DOCUSATE 100 MG CAP PO SCH ×2 (08:52→20:01)
[2018-02-23] MEDS: ASPIRIN 81 MG PO SCH (08:52)
[2018-02-23] MEDS: PIOGLITAZONE 45 MG TAB PO SCH (08:52)
[2018-02-23] MEDS: buPROPion SR 150 MG TABLET.ER PO SCH ×2 (08:52→20:01)
[2018-02-23] MEDS: LISINOPRIL 10 MG TAB PO SCH (08:52)
[2018-02-23] MEDS: METOPROLOL TARTRATE 50 MG TAB PO SCH (08:52)
[2018-02-23] MEDS: PANTOPRAZOLE 40 MG TABLET PO SCH ×2 (09:52→18:36)
[2018-02-23] MEDS: HEPARIN SODIUM,PORCINE 5,000 UNIT/ML 1 ML VIAL SQ SCH ×2 (10:44→20:01)
[2018-02-23] MEDS: HYDROcodone/APAP 5-325MG 1 EACH TAB PO PRN ×2 (10:44→15:29)
[2018-02-23] MEDS: MAGNESIUM OXIDE 400 MG TAB PO SCH (13:02)
[2018-02-23] MEDS: FERROUS SULFATE 325 MG TAB PO SCH (13:02)
--- NOTE | 2018-02-23 13:22 | P.PN ---
Subjective Progress Note Date: 02/23/18 Adriana Calderón is a 63 year old female patient of Dr. Snowden. Patient presented to the emergency department after falling down her stairs sustaining injury to her left ankle. Patient states that it was in the middle the night nurse to place something on the stairs that she was unaware of it she tripped and fell. Patient states she heard and felt a pop in her left ankle. Patient denies hitting her head. Patient denies any alcohol or drug associated with event. Patient was noted to have a bimalleolar fracture dislocation. Reduction in the emergency department along with splint being applied with molding to improve reduction to left ankle. Per ortho services surgery will likely be next week to allow swelling to resolve. Patient currently admitted for pain management. Patient has a known past medical history of diabetes mellitus, I disorder, GERD, hyperlipidemia, hypertension, osteoarthritis, renal disease stage IV and heart catheterization 1 year ago. At this time patient denies chest pain or shortness of breath. Pain meds per Ortho services. Patient denies nausea vomiting or diarrhea. Patient denies any urinary burning or frequency. Per ortho anticipate discharge home tomorrow. 02/22/2018 patient still reports pain left ankle. Awaiting final plans per orthopedic service. Unfortunately nursing staff just called me and reported that patient and is having difficulty swallowing her lunch she's also having coughing episodes with it. Patient will be made nothing by mouth speech therapy consulted and chest x-ray has been ordered. She had mildly elevated LFTs Lipitor has been discontinued. LFTs are trending down. Hemoglobin 10 patient denies any blood or black stools. Iron studies ordered. Denies any chest pain or shortness of breath. Denies any nausea or vomiting. Is reporting constipation been 2 days since last bowel movement stool softeners have been added. On 02/23/2018 patient still reporting pain in her left ankle. Per patient concerns for patient's ability to get around at home causing possible ECF placement. Social work has been consulted per nursing staff patient passed bedside swallow evaluation. At this time patient denies chest pain or shortness of breath. Denies any urinary burning or frequency. Denies any nausea vomiting or diarrhea. Objective - Vital Signs Vital signs: Vital Signs Temp 99.5 F 02/23/18 08:30 Pulse 87 02/23/18 08:30 Resp 14 09/01/18 08:30 BP 94/51 02/23/18 08:30 Pulse Ox 91 L 02/23/18 08:30 Intake & Output 02/22/18 02/23/18 02/23/18 18:59 06:59 18:59 Intake Total 140 1780 Balance 140 1780 Intake: Intake, IV Titration 140 1780 Amount Sodium Chloride 0.9% 1, 550 000 ml @ 100 mls/hr IV . Q10H [facility] Rx#:[id number] Sodium Chloride 0.9% 1, 140 230 000 ml @ 20 mls/hr IV . Q24H [facility] Rx#:[id number] Sodium Chloride 0.9% 500 1000 ml @ 250 mls/hr IV .Q2H [facility] Rx#:[id number] Other: Voiding Method Bedpan Bedpan # Voids 2 3 - Exam Head normocephalic Neck supple Lungs clear to auscultation bilaterally no wheezing or crackles Heart regular rate and rhythm S1-S2, no rub or gallop Abdomen is soft nontender nondistended positive bowel sounds no hepatosplenomegaly Extremities no edema. Left ankle in Tommie wrap Neuro alert and orientated to 3 - Labs CBC & Chem 7: 02/23/18 07:10 02/23/18 07:10 Labs: Abnormal Lab Results - Last 24 Hours (Table) 02/22/18 02/22/18 02/23/18 Range/Units 06:59 16:57 04:24 WBC (3.8-10.6) k/uL RBC (3.80-5.40) m/uL Hgb (11.4-16.0) gm/dL Hct (34.0-46.0) % MCV (80.0-100.0) fL MCHC (31.0-37.0) g/dL Lymphocytes # (1.0-4.8) k/uL Chloride (98-107) mmol/L BUN (7-17) mg/dL Creatinine (0.52-1.04) mg/dL POC Glucose (mg/dL) 117 H 67 L (75-99) mg/dL Iron 21 L (50-170) ug/dL Iron Saturation 5.29 L (12.00-45.00) Alkaline Phosphatase (38-126) U/L Total Protein (6.3-8.2) g/dL Albumin (3.5-5.0) g/dL 02/23/18 02/23/18 Range/Units 07:10 07:10 WBC 3.5 L (3.8-10.6) k/uL RBC 2.95 L (3.80-5.40) m/uL Hgb 9.3 L (11.4-16.0) gm/dL Hct 30.0 L (34.0-46.0) % MCV 101.7 H (80.0-100.0) fL MCHC 30.9 L (31.0-37.0) g/dL Lymphocytes # 0.7 L (1.0-4.8) k/uL Chloride 110 H (98-107) mmol/L BUN 40 H (7-17) mg/dL Creatinine 1.71 H (0.52-1.04) mg/dL POC Glucose (mg/dL) (75-99) mg/dL Iron (50-170) ug/dL Iron Saturation (12.00-45.00) Alkaline Phosphatase 35 L (38-126) U/L Total Protein 5.0 L (6.3-8.2) g/dL Albumin 2.9 L (3.5-5.0) g/dL Assessment and Plan Assessment: 1. Fall with bimalleolar lateral fracture and dislocation to the left ankle joint. Patient currently admitted for pain management. Surgery planned for next week due to increased swelling of left foot at this time. Reduction in emergency room. Patient currently in reduction sling. Pain meds per Ortho surgical services. Per or so services surgical intervention will likely been the next 7-10 days per or so planning to be discharged home on Sunday and follow -up in office on Sunday for surgical planning. Patient comes but did express concerns about home placement for patient due to lack of mobility. Social work consult has been placed for possible ECF placement. 2. History of diabetes mellitus. Home Actos ordered. Accu-Cheks have been added. A1c 5.7. 3. History of chronic kidney disease stage IV. Patient states she follows outpatient with nephrology services. Creatinine increasing to 1.71 and bun 40. We'll continue to monitor closely 4. History of GERD. Continue home medications 5. History of hyperlipidemia. Lipitor and fenofibrate discontinued due to elevated liver enzymes enzymes. 6. History of essential hypertension 7. History of cardiac catheterization in April 2017. Per records cardiac catheterization revealed a CAPACITOR INSPECTOR of the right coronary artery, left system was free of any significant disease. Circumflex appeared to be codominant medically managed. Patient states she follows outpatient with cardiology. Patient currently on aspirin 81 mg 8. Elevated LFTs. Discontinue Lipitor and fenofibrate. Improving AST 33 and ALT 46 9. Iron deficiency anemia with a hemoglobin of 10. No signs of active bleeding. Hemoglobuin 9.3 Iron 21, TIBC 397 and iron saturation 5.29. Patient currently on ferrous sulfate 10. Difficulty with swallowing and coughing episode during lunch. Chest x-ray completed showing left basal atelectasis or infiltrate correlate clinically. Per nursing staff patient passed bedside swallow. 11. Patient had low-grade temp 99.5. Urinalysis has been ordered. Patient denies any nausea vomiting or diarrhea. Patient denies any urinary burning upper respiratory symptoms. DVT prophylaxis heparin Per patient's concerned about home environment due to patient's lack of mobility. Requesting possible ECF placement. Social work has been consulted. Thank you for this consultation we will continue to follow patient closely throughout stay. I performed an examination of the patient and discussed their management with the Nurse Practitioner. I have reviewed the Nurse Practitioner's notes and agree with the documented findings and plan of care
--- NOTE | 2018-02-23 17:39 | P.PN ---
Subjective Progress Note Date: 02/23/18 Principal diagnosis: Left ankle fracture This is a 61-year-old female who we are following regarding her left ankle fracture. She is noted to have a fairly unstable bimalleolar fracture dislocation which is currently reduced and in a short leg splint. The patient continues to have pain as expected. She denies new complaints including numbness , tingling or calf pain. Review of systems is negative for fever, chills, chest pain, shortness of breath or other. Objective - Vital Signs Vital signs: Vital Signs Temp 98.1 F 02/23/18 15:00 Pulse 59 L 02/23/18 15:00 Resp 12 02/23/18 15:00 BP 89/52 02/23/18 15:00 Pulse Ox 95 02/23/18 15:00 Intake & Output 02/22/18 02/23/18 02/23/18 18:59 06:59 18:59 Intake Total 140 1780 Balance 140 1780 Intake: Intake, IV Titration 140 1780 Amount Sodium Chloride 0.9% 1, 550 000 ml @ 100 mls/hr IV . Q10H [facility] Rx#:[id number] Sodium Chloride 0.9% 1, 140 230 000 ml @ 20 mls/hr IV . Q24H [facility] Rx#:[id number] Sodium Chloride 0.9% 500 1000 ml @ 250 mls/hr IV .Q2H [facility] Rx#:[id number] Other: Voiding Method Bedpan Bedpan # Voids 2 3 0 - Exam Exam of the lower extremities reveals a splint is in place to the left ankle. Her right has full foot and ankle motion without difficulty or pain. Neurovascular status to the lower extremity is intact. Less than 2 sec cap refill present in all toes. - Constitutional General appearance: Present: no acute distress - Psychiatric Psychiatric: Present: A&O x's 3, appropriate affect, intact judgment & insight - Labs CBC & Chem 7: 02/23/18 07:10 02/23/18 07:10 Labs: Abnormal Lab Results - Last 24 Hours (Table) 02/22/18 02/23/18 02/23/18 Range/Units 06:59 04:24 07:10 WBC (3.8-10.6) k/uL RBC (3.80-5.40) m/uL Hgb (11.4-16.0) gm/dL Hct (34.0-46.0) % MCV (80.0-100.0) fL MCHC (31.0-37.0) g/dL Lymphocytes # (1.0-4.8) k/uL Chloride 110 H (98-107) mmol/L BUN 40 H (7-17) mg/dL Creatinine 1.71 H (0.52-1.04) mg/dL POC Glucose (mg/dL) 67 L (75-99) mg/dL Iron 21 L (50-170) ug/dL Iron Saturation 5.29 L (12.00-45.00) Alkaline Phosphatase 35 L (38-126) U/L Total Protein 5.0 L (6.3-8.2) g/dL Albumin 2.9 L (3.5-5.0) g/dL 02/23/18 Range/Units 07:10 WBC 3.5 L (3.8-10.6) k/uL RBC 2.95 L (3.80-5.40) m/uL Hgb 9.3 L (11.4-16.0) gm/dL Hct 30.0 L (34.0-46.0) % MCV 101.7 H (80.0-100.0) fL MCHC 30.9 L (31.0-37.0) g/dL Lymphocytes # 0.7 L (1.0-4.8) k/uL Chloride (98-107) mmol/L BUN (7-17) mg/dL Creatinine (0.52-1.04) mg/dL POC Glucose (mg/dL) (75-99) mg/dL Iron (50-170) ug/dL Iron Saturation (12.00-45.00) Alkaline Phosphatase (38-126) U/L Total Protein (6.3-8.2) g/dL Albumin (3.5-5.0) g/dL Assessment and Plan (1) Ankle fracture, left Narrative/Plan: She is pending surgical intervention within the next 7-10 days. She will most likely be discharged to home on Sunday and follow-up in the office on Sunday for surgical planning. Current Visit: Yes Status: Acute Code(s): S82.892A - OTH FRACTURE OF LEFT LOWER LEG, INIT FOR CLOS FX SNOMED Code(s): 89639395 Time with Patient: Less than 30
[2018-02-23 17:47] LABS: Glucose,Whole Blood 175 mg/dL (75-99)
[2018-02-23] MEDS: CYCLOBENZAPRINE 10 MG TAB PO SCH (20:00)
[2018-02-23 20:02] LABS: Glucose,Whole Blood 183 mg/dL (75-99)
[2018-02-23] MEDS: HYDROcodone/APAP 7.5-325MG 1 EACH TAB PO PRN (20:41)
[2018-02-24 00:45] LABS: Appearance,Urine Clear (Clear); Bilirubin,Urine Negative (Negative); Blood,Urine Negative (Negative); Color,Urine Yellow; Glucose,Urine (UA) Negative (Negative); Hyaline Casts,Urine 1 /lpf (0-2); Ketones,Urine Negative (Negative); Leukocyte Esterase,Urine Trace (Negative); Mucus,Urine Rare /hpf; Nitrite,Urine Negative (Negative); PH, Urine 5.5 (5.0-8.0); Protein,Urine Negative (Negative); RBC,Urine <1 /hpf (0-5); Specific Gravity,Urine 1.016 (1.001-1.035); Squamous Epithelial Cell,Urine 1 /hpf (0-4); Urobilinogen,Urine <2.0 mg/dL (<2.0); WBC,Urine 5 /hpf (0-5)
[2018-02-24] MEDS: HYDROcodone/APAP 7.5-325MG 1 EACH TAB PO PRN ×4 (03:55→23:42)
[2018-02-24] MEDS: SODIUM CHLORIDE 0.9% 1,000 ML IV SCH ×4 (05:02→21:46)
[2018-02-24 07:13] LABS: Glucose,Whole Blood 95 mg/dL (75-99)
[2018-02-24 07:41] LABS: Basophils % (A) 1 %; Eosinophils # (A) 0.1 k/uL (0-0.7); Eosinophils % (A) 2 %; HCT 29.8 % (34.0-46.0); HGB 9.3 gm/dL (11.4-16.0); Hypochromasia Slight; Lymphocytes # (A) 0.7 k/uL (1.0-4.8); Lymphocytes % (A) 22 %; MCH 31.3 pg (25.0-35.0); MCHC 31.1 g/dL (31.0-37.0); MCV 100.6 fL (80.0-100.0); Mean Platelet Volume 7.3; Monocytes # (A) 0.2 k/uL (0-1.0); Monocytes % (A) 8 %; Neutrophils # (A) 1.9 k/uL (1.3-7.7); Neutrophils % (A) 66 %; Platelet Count 195 k/uL (150-450); RBC 2.96 m/uL (3.80-5.40); RDW 13.1 % (11.5-15.5)
[2018-02-24 08:00] LABS: Albumin 2.7 g/dL (3.5-5.0); Calcium 8.6 mg/dL (8.4-10.2); Total Bilirubin 0.4 mg/dL (0.2-1.3); Total Protein 4.9 g/dL (6.3-8.2)
[2018-02-24] MEDS: SUCRALFATE 1 GM TAB PO SCH ×2 (08:42→20:02)
[2018-02-24] MEDS: ASPIRIN 81 MG PO SCH (08:42)
[2018-02-24] MEDS: buPROPion SR 150 MG TABLET.ER PO SCH ×2 (08:42→20:02)
[2018-02-24] MEDS: PIOGLITAZONE 45 MG TAB PO SCH (08:42)
[2018-02-24] MEDS: PANTOPRAZOLE 40 MG TABLET PO SCH ×2 (08:42→17:28)
[2018-02-24] MEDS: DOCUSATE 100 MG CAP PO SCH ×2 (08:42→20:02)
[2018-02-24] MEDS: HEPARIN SODIUM,PORCINE 5,000 UNIT/ML 1 ML VIAL SQ SCH ×2 (08:42→20:02)
[2018-02-24] MEDS: METOPROLOL TARTRATE 50 MG TAB PO SCH (08:58)
[2018-02-24] MEDS: LISINOPRIL 10 MG TAB PO SCH (09:58)
--- NOTE | 2018-02-24 10:09 | P.PN ---
Subjective Progress Note Date: 02/24/18 Principal diagnosis: Left ankle fracture This is a 61-year-old female who we are following regarding her left ankle fracture. She is noted to have a fairly unstable bimalleolar fracture dislocation which is currently reduced and in a short leg splint. The patient continues to have pain as expected. She denies new complaints including numbness , tingling or calf pain. Review of systems is negative for fever, chills, chest pain, shortness of breath or other. Objective - Vital Signs Vital signs: Vital Signs Temp 97.8 F 02/24/18 07:19 Pulse 72 02/24/18 07:19 Resp 18 02/24/18 07:19 BP 96/58 02/24/18 07:19 Pulse Ox 96 02/24/18 07:19 Intake & Output 02/23/18 02/24/18 02/24/18 18:59 06:59 18:59 Intake Total 440 Balance 440 Intake: Intake, IV Titration 200 Amount Sodium Chloride 0.9% 1, 200 000 ml @ 100 mls/hr IV . Q10H [facility] Rx#:[id number] Oral 240 Other: Voiding Method Bedside Commode Toilet Bedpan # Voids 0 - Exam Exam of the lower extremities reveals a splint is in place to the left ankle. Her right has full foot and ankle motion without difficulty or pain. Neurovascular status to the lower extremity is intact. Less than 2 sec cap refill present in all toes. - Constitutional General appearance: Present: no acute distress - Psychiatric Psychiatric: Present: A&O x's 3, appropriate affect, intact judgment & insight - Labs CBC & Chem 7: 02/24/18 06:44 02/24/18 06:44 Labs: Abnormal Lab Results - Last 24 Hours (Table) 02/23/18 02/23/18 02/24/18 Range/Units 17:46 20:00 00:30 WBC (3.8-10.6) k/uL RBC (3.80-5.40) m/uL Hgb (11.4-16.0) gm/dL Hct (34.0-46.0) % MCV (80.0-100.0) fL Lymphocytes # (1.0-4.8) k/uL Chloride (98-107) mmol/L BUN (7-17) mg/dL Creatinine (0.52-1.04) mg/dL POC Glucose (mg/dL) 175 H 183 H (75-99) mg/dL Alkaline Phosphatase (38-126) U/L Total Protein (6.3-8.2) g/dL Albumin (3.5-5.0) g/dL Ur Leukocyte Esterase Trace H (Negative) Urine Mucus Rare H (None) /hpf 02/24/18 02/24/18 Range/Units 06:44 06:44 WBC 3.0 L (3.8-10.6) k/uL RBC 2.96 L (3.80-5.40) m/uL Hgb 9.3 L (11.4-16.0) gm/dL Hct 29.8 L (34.0-46.0) % MCV 100.6 H (80.0-100.0) fL Lymphocytes # 0.7 L (1.0-4.8) k/uL Chloride 110 H (98-107) mmol/L BUN 38 H (7-17) mg/dL Creatinine 1.43 H (0.52-1.04) mg/dL POC Glucose (mg/dL) (75-99) mg/dL Alkaline Phosphatase 36 L (38-126) U/L Total Protein 4.9 L (6.3-8.2) g/dL Albumin 2.7 L (3.5-5.0) g/dL Ur Leukocyte Esterase (Negative) Urine Mucus (None) /hpf Assessment and Plan (1) Ankle fracture, left Narrative/Plan: She is pending surgical intervention within the next 7-10 days. She is unable to manage at home and rehab placement has been requested. Expect transfer in next few days. . Current Visit: Yes Status: Acute Code(s): S82.892A - OTH FRACTURE OF LEFT LOWER LEG, INIT FOR CLOS FX SNOMED Code(s): 80322888 Time with Patient: Less than 30
[2018-02-24] MEDS: FERROUS SULFATE 325 MG TAB PO SCH (11:28)
[2018-02-24] MEDS: MAGNESIUM OXIDE 400 MG TAB PO SCH (11:28)
[2018-02-24 12:04] LABS: Glucose,Whole Blood 126 mg/dL (75-99)
--- NOTE | 2018-02-24 13:08 | P.PN ---
Subjective Progress Note Date: 02/24/18 Adriana Calderón is a 63 year old female patient of Dr. Snowden. Patient presented to the emergency department after falling down her stairs sustaining injury to her left ankle. Patient states that it was in the middle the night nurse to place something on the stairs that she was unaware of it she tripped and fell. Patient states she heard and felt a pop in her left ankle. Patient denies hitting her head. Patient denies any alcohol or drug associated with event. Patient was noted to have a bimalleolar fracture dislocation. Reduction in the emergency department along with splint being applied with molding to improve reduction to left ankle. Per ortho services surgery will likely be next week to allow swelling to resolve. Patient currently admitted for pain management. Patient has a known past medical history of diabetes mellitus, I disorder, GERD, hyperlipidemia, hypertension, osteoarthritis, renal disease stage IV and heart catheterization 1 year ago. At this time patient denies chest pain or shortness of breath. Pain meds per Ortho services. Patient denies nausea vomiting or diarrhea. Patient denies any urinary burning or frequency. Per ortho anticipate discharge home tomorrow. 02/22/2018 patient still reports pain left ankle. Awaiting final plans per orthopedic service. Unfortunately nursing staff just called me and reported that patient and is having difficulty swallowing her lunch she's also having coughing episodes with it. Patient will be made nothing by mouth speech therapy consulted and chest x-ray has been ordered. She had mildly elevated LFTs Lipitor has been discontinued. LFTs are trending down. Hemoglobin 10 patient denies any blood or black stools. Iron studies ordered. Denies any chest pain or shortness of breath. Denies any nausea or vomiting. Is reporting constipation been 2 days since last bowel movement stool softeners have been added. On 02/23/2018 patient still reporting pain in her left ankle. Per patient concerns for patient's ability to get around at home causing possible ECF placement. Social work has been consulted per nursing staff patient passed bedside swallow evaluation. At this time patient denies chest pain or shortness of breath. Denies any urinary burning or frequency. Denies any nausea vomiting or diarrhea. On 02/24/2018 patient was seen and examined on the surgical floor, she is alert and oriented 3 in no apparent distress, she is sitting comfortably in chair, she is complaining of pain in her left ankle, otherwise she denies any complaints, there is no fever or chills no headache or dizziness no chest pain no shortness of breath no cough no nausea or vomiting no abdominal pain no diarrhea and no urinary symptoms Objective - Vital Signs Vital signs: Vital Signs Temp 97.8 F 02/24/18 07:19 Pulse 72 02/24/18 07:19 Resp 18 02/24/18 07:19 BP 92/60 02/24/18 10:44 Pulse Ox 96 02/24/18 07:19 Intake & Output 02/23/18 02/24/18 02/24/18 18:59 06:59 18:59 Intake Total 440 Balance 440 Intake: Intake, IV Titration 200 Amount Sodium Chloride 0.9% 1, 200 000 ml @ 100 mls/hr IV . Q10H [facility] Rx#:[id number] Oral 240 Other: Voiding Method Bedside Commode Toilet Bedpan # Voids 0 - Exam Head normocephalic and atraumatic Neck supple no JVD no goiter Lungs clear to auscultation bilaterally no wheezing or crackles Heart regular rate and rhythm S1-S2, no rub or gallop Abdomen is soft nontender nondistended positive bowel sounds no hepatosplenomegaly Extremities no edema. Left ankle in Tommie wrap Neuro alert and orientated to 3 - Labs CBC & Chem 7: 02/24/18 06:44 02/24/18 06:44 Labs: Abnormal Lab Results - Last 24 Hours (Table) 02/23/18 02/23/18 02/24/18 Range/Units 17:46 20:00 00:30 WBC (3.8-10.6) k/uL RBC (3.80-5.40) m/uL Hgb (11.4-16.0) gm/dL Hct (34.0-46.0) % MCV (80.0-100.0) fL Lymphocytes # (1.0-4.8) k/uL Chloride (98-107) mmol/L BUN (7-17) mg/dL Creatinine (0.52-1.04) mg/dL POC Glucose (mg/dL) 175 H 183 H (75-99) mg/dL Alkaline Phosphatase (38-126) U/L Total Protein (6.3-8.2) g/dL Albumin (3.5-5.0) g/dL Ur Leukocyte Esterase Trace H (Negative) Urine Mucus Rare H (None) /hpf 02/24/18 02/24/18 02/24/18 Range/Units 06:44 06:44 11:46 WBC 3.0 L (3.8-10.6) k/uL RBC 2.96 L (3.80-5.40) m/uL Hgb 9.3 L (11.4-16.0) gm/dL Hct 29.8 L (34.0-46.0) % MCV 100.6 H (80.0-100.0) fL Lymphocytes # 0.7 L (1.0-4.8) k/uL Chloride 110 H (98-107) mmol/L BUN 38 H (7-17) mg/dL Creatinine 1.43 H (0.52-1.04) mg/dL POC Glucose (mg/dL) 126 H (75-99) mg/dL Alkaline Phosphatase 36 L (38-126) U/L Total Protein 4.9 L (6.3-8.2) g/dL Albumin 2.7 L (3.5-5.0) g/dL Ur Leukocyte Esterase (Negative) Urine Mucus (None) /hpf Assessment and Plan Plan: 1. Fall with bimalleolar lateral fracture and dislocation to the left ankle joint. Patient currently admitted for pain management. Surgery planned for next week due to increased swelling of left foot at this time. Reduction in emergency room. Patient currently in reduction sling. Pain meds per Ortho surgical services. Per or so services surgical intervention will likely been the next 7-10 days per or so planning to be discharged home on Sunday and follow -up in office on Sunday for surgical planning. Patient comes but did express concerns about home placement for patient due to lack of mobility. Social work consult has been placed for possible ECF placement. 2. History of diabetes mellitus. Home Actos ordered. Accu-Cheks have been added. A1c 5.7. 3. History of chronic kidney disease stage IV. Patient states she follows outpatient with nephrology services. Creatinine increasing to 1.71 and bun 40. We'll continue to monitor closely 4. History of GERD. Continue home medications 5. History of hyperlipidemia. Lipitor and fenofibrate discontinued due to elevated liver enzymes enzymes. 6. History of essential hypertension 7. History of cardiac catheterization in April 2017. Per records cardiac catheterization revealed a DIRECTOR OF [employer]CILLARY SERVICES of the right coronary artery, left system was free of any significant disease. Circumflex appeared to be codominant medically managed. Patient states she follows outpatient with cardiology. Patient currently on aspirin 81 mg 8. Elevated LFTs. Discontinue Lipitor and fenofibrate. Improving AST 33 and ALT 46 9. Iron deficiency anemia with a hemoglobin of 10. No signs of active bleeding. Hemoglobuin 9.3 Iron 21, TIBC 397 and iron saturation 5.29. Patient currently on ferrous sulfate 10. Difficulty with swallowing and coughing episode during lunch. Chest x-ray completed showing left basal atelectasis or infiltrate correlate clinically. Per nursing staff patient passed bedside swallow. 11. Patient had low-grade temp 99.5. Urinalysis has been ordered. Patient denies any nausea vomiting or diarrhea. Patient denies any urinary burning upper respiratory symptoms. DVT prophylaxis heparin Per patient's concerned about home environment due to patient's lack of mobility. Requesting possible ECF placement. Social work has been consulted. Thank you for this consultation we will continue to follow patient closely throughout stay.
[2018-02-24 17:45] LABS: Glucose,Whole Blood 103 mg/dL (75-99)
[2018-02-24 20:02] LABS: Glucose,Whole Blood 125 mg/dL (75-99)
[2018-02-24] MEDS: CYCLOBENZAPRINE 10 MG TAB PO SCH (20:02)
[2018-02-25] MEDS: HYDROcodone/APAP 7.5-325MG 1 EACH TAB PO PRN ×4 (05:28→23:08)
[2018-02-25 07:00] LABS: Glucose,Whole Blood 102 mg/dL (75-99)
[2018-02-25 07:52] LABS: Albumin 2.6 g/dL (3.5-5.0); Calcium 8.7 mg/dL (8.4-10.2); Potassium 5.7 mmol/L (3.5-5.1); Total Bilirubin 0.4 mg/dL (0.2-1.3); Total Protein 4.8 g/dL (6.3-8.2)
[2018-02-25 08:12] LABS: Basophils % (A) 0 %; Eosinophils # (A) 0.1 k/uL (0-0.7); Eosinophils % (A) 3 %; HCT 29.8 % (34.0-46.0); HGB 9.6 gm/dL (11.4-16.0); Hypochromasia Slight; Lymphocytes # (A) 0.9 k/uL (1.0-4.8); Lymphocytes % (A) 31 %; MCH 32.7 pg (25.0-35.0); MCHC 32.3 g/dL (31.0-37.0); Macrocytosis Slight; Mean Platelet Volume 8.1; Monocytes # (A) 0.2 k/uL (0-1.0); Monocytes % (A) 7 %; Neutrophils # (A) 1.6 k/uL (1.3-7.7); Neutrophils % (A) 57 %; RBC 2.95 m/uL (3.80-5.40); RDW 13.3 % (11.5-15.5); WBC 2.8 k/uL (3.8-10.6)
[2018-02-25] MEDS: HEPARIN SODIUM,PORCINE 5,000 UNIT/ML 1 ML VIAL SQ SCH (08:13)
[2018-02-25] MEDS: DOCUSATE 100 MG CAP PO SCH ×2 (08:13→20:04)
[2018-02-25] MEDS: buPROPion SR 150 MG TABLET.ER PO SCH ×2 (08:13→20:02)
[2018-02-25] MEDS: ASPIRIN 81 MG PO SCH (08:13)
[2018-02-25] MEDS: PANTOPRAZOLE 40 MG TABLET PO SCH ×2 (08:13→16:59)
[2018-02-25] MEDS: SUCRALFATE 1 GM TAB PO SCH ×2 (08:13→20:02)
[2018-02-25] MEDS: PIOGLITAZONE 45 MG TAB PO SCH (08:13)
[2018-02-25] MEDS: LISINOPRIL 10 MG TAB PO SCH (08:21)
[2018-02-25] MEDS: SODIUM CHLORIDE 0.9% 1,000 ML IV SCH ×4 (08:21→20:03)
[2018-02-25] MEDS: METOPROLOL TARTRATE 50 MG TAB PO SCH (08:22)
[2018-02-25 08:30] LABS: Platelet Count 98 k/uL (150-450)
[2018-02-25] MEDS: MAGNESIUM OXIDE 400 MG TAB PO SCH (11:43)
[2018-02-25] MEDS: FERROUS SULFATE 325 MG TAB PO SCH (11:43)
[2018-02-25 11:50] LABS: Glucose,Whole Blood 134 mg/dL (75-99)
[2018-02-25] MEDS ORDERED: SODIUM POLYSTYRENE SULFONATE 15 GM/60 ML BOTTLE PO STA (12:41)
--- NOTE | 2018-02-25 12:57 | P.PN ---
Subjective Progress Note Date: 02/25/18 Adriana Calderón is a 63 year old female patient of Dr. Snowden. Patient presented to the emergency department after falling down her stairs sustaining injury to her left ankle. Patient states that it was in the middle the night nurse to place something on the stairs that she was unaware of it she tripped and fell. Patient states she heard and felt a pop in her left ankle. Patient denies hitting her head. Patient denies any alcohol or drug associated with event. Patient was noted to have a bimalleolar fracture dislocation. Reduction in the emergency department along with splint being applied with molding to improve reduction to left ankle. Per ortho services surgery will likely be next week to allow swelling to resolve. Patient currently admitted for pain management. Patient has a known past medical history of diabetes mellitus, I disorder, GERD, hyperlipidemia, hypertension, osteoarthritis, renal disease stage IV and heart catheterization 1 year ago. At this time patient denies chest pain or shortness of breath. Pain meds per Ortho services. Patient denies nausea vomiting or diarrhea. Patient denies any urinary burning or frequency. Per ortho anticipate discharge home tomorrow. 02/22/2018 patient still reports pain left ankle. Awaiting final plans per orthopedic service. Unfortunately nursing staff just called me and reported that patient and is having difficulty swallowing her lunch she's also having coughing episodes with it. Patient will be made nothing by mouth speech therapy consulted and chest x-ray has been ordered. She had mildly elevated LFTs Lipitor has been discontinued. LFTs are trending down. Hemoglobin 10 patient denies any blood or black stools. Iron studies ordered. Denies any chest pain or shortness of breath. Denies any nausea or vomiting. Is reporting constipation been 2 days since last bowel movement stool softeners have been added. On 02/23/2018 patient still reporting pain in her left ankle. Per patient concerns for patient's ability to get around at home causing possible ECF placement. Social work has been consulted per nursing staff patient passed bedside swallow evaluation. At this time patient denies chest pain or shortness of breath. Denies any urinary burning or frequency. Denies any nausea vomiting or diarrhea. On 02/24/2018 patient was seen and examined on the surgical floor, she is alert and oriented 3 in no apparent distress, she is sitting comfortably in chair, she is complaining of pain in her left ankle, otherwise she denies any complaints, there is no fever or chills no headache or dizziness no chest pain no shortness of breath no cough no nausea or vomiting no abdominal pain no diarrhea and no urinary symptoms 02/25/2018 patient alert and oriented 3. currently resting comfortably in bed. Denies chest pain or shortness breath. Denies nausea vomiting or diarrhea. Denies any urinary burning or frequency. Objective - Vital Signs Vital signs: Vital Signs Temp 98.8 F 02/25/18 08:15 Pulse 78 02/25/18 08:15 Resp 16 02/25/18 11:13 BP 113/75 02/25/18 08:15 Pulse Ox 95 02/25/18 08:15 Intake & Output 02/24/18 02/25/18 02/25/18 18:59 06:59 18:59 Intake Total 800 1200 Balance 800 1200 Intake: Intake, IV Titration 800 1200 Amount Sodium Chloride 0.9% 1, 800 1200 000 ml @ 100 mls/hr IV . Q10H [facility] Rx#:[id number] Other: Voiding Method Toilet Bedside Commode Bedpan # Voids 2 3 # Bowel Movements 1 - Exam Head normocephalic Neck supple Lungs clear to auscultation bilaterally no wheezing or crackles Heart regular rate and rhythm S1-S2, no rub or gallop Abdomen is soft nontender nondistended positive bowel sounds no hepatosplenomegaly Extremities no edema. Left ankle in Tommie wrap Neuro alert and orientated to 3 - Labs CBC & Chem 7: 02/25/18 06:48 02/25/18 06:48 Labs: Abnormal Lab Results - Last 24 Hours (Table) 02/24/18 02/24/18 02/25/18 Range/Units 17:42 20:00 06:48 WBC (3.8-10.6) k/uL RBC (3.80-5.40) m/uL Hgb (11.4-16.0) gm/dL Hct (34.0-46.0) % MCV (80.0-100.0) fL Plt Count (150-450) k/uL Lymphocytes # (1.0-4.8) k/uL Potassium 5.7 H (3.5-5.1) mmol/L Chloride 111 H (98-107) mmol/L BUN 36 H (7-17) mg/dL Creatinine 1.27 H (0.52-1.04) mg/dL POC Glucose (mg/dL) 103 H 125 H (75-99) mg/dL Alkaline Phosphatase 36 L (38-126) U/L Total Protein 4.8 L (6.3-8.2) g/dL Albumin 2.6 L (3.5-5.0) g/dL 02/25/18 02/25/18 02/25/18 Range/Units 06:48 06:54 11:49 WBC 2.8 L (3.8-10.6) k/uL RBC 2.95 L (3.80-5.40) m/uL Hgb 9.6 L (11.4-16.0) gm/dL Hct 29.8 L (34.0-46.0) % MCV 101.0 H (80.0-100.0) fL Plt Count 98 L (150-450) k/uL Lymphocytes # 0.9 L (1.0-4.8) k/uL Potassium (3.5-5.1) mmol/L Chloride (98-107) mmol/L BUN (7-17) mg/dL Creatinine (0.52-1.04) mg/dL POC Glucose (mg/dL) 102 H 134 H (75-99) mg/dL Alkaline Phosphatase (38-126) U/L Total Protein (6.3-8.2) g/dL Albumin (3.5-5.0) g/dL Assessment and Plan Assessment: 1. Fall with bimalleolar lateral fracture and dislocation to the left ankle joint. Patient currently admitted for pain management. Surgery planned for next week due to increased swelling of left foot at this time. Reduction in emergency room. Patient currently in reduction sling. Pain meds per Ortho surgical services. Per or so services surgical intervention will likely been the next 7-10 days per or so planning to be discharged home on Sunday and follow -up in office on Sunday for surgical planning. Patient comes but did express concerns about home placement for patient due to lack of mobility. Social work consult has been placed for possible ECF placement. 2. History of diabetes mellitus. Home Actos ordered. Accu-Cheks have been added. A1c 5.7. 3. History of chronic kidney disease stage IV. Patient states she follows outpatient with nephrology services. Creatinine increasing to 1.71 and bun 40. We'll continue to monitor closely 4. History of GERD. Continue home medications 5. History of hyperlipidemia. Lipitor and fenofibrate discontinued due to elevated liver enzymes enzymes. 6. History of essential hypertension 7. History of cardiac catheterization in April 2017. 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 Circumflex appeared to be codominant medically managed. Patient states she follows outpatient with cardiology. Patient currently on aspirin 81 mg 8. Elevated LFTs. Discontinue Lipitor and fenofibrate. Improving AST 33 and ALT 46. 9. Iron deficiency anemia with a hemoglobin of 10. No signs of active bleeding. Hemoglobuin 9.3 Iron 21, TIBC 397 and iron saturation 5.29. Patient currently on ferrous sulfate 10. Difficulty with swallowing and coughing episode during lunch. Chest x-ray completed showing left basal atelectasis or infiltrate correlate clinically. Per nursing staff patient passed bedside swallow. 11. Patient had low-grade temp 99.5. Urinalysis has been ordered. Patient denies any nausea vomiting or diarrhea. Patient denies any urinary burning upper respiratory symptoms. 12. Hyperkalemia. potassium 5.7. Kayaxlate orderd. Repeat labs have been ordered. DVT prophylaxis SCD's. heparin discontinued due to platelets at 93. GI prophylaxis Protonix Per patient's concerned about home environment due to patient's lack of mobility. Requesting possible ECF placement. Social work has been consulted. Thank you for this consultation we will continue to follow patient closely throughout stay. I performed an examination of the patient and discussed their management with the Nurse Practitioner. I have reviewed the Nurse Practitioner's notes and agree with the documented findings and plan of care
--- NOTE | 2018-02-25 13:58 | P.PN ---
Subjective Progress Note Date: 02/25/18 Principal diagnosis: Left ankle fracture This is a 61-year-old female who we are following regarding her left ankle fracture. She is noted to have a fairly unstable bimalleolar fracture dislocation which is currently reduced and in a short leg splint. The patient continues to have pain as expected. She denies new complaints including numbness , tingling or calf pain. Review of systems is negative for fever, chills, chest pain, shortness of breath or other. Objective - Vital Signs Vital signs: Vital Signs Temp 98.8 F 02/25/18 08:15 Pulse 78 02/25/18 08:15 Resp 16 02/25/18 11:13 BP 113/75 02/25/18 08:15 Pulse Ox 95 02/25/18 08:15 Intake & Output 02/24/18 02/25/18 02/25/18 18:59 06:59 18:59 Intake Total 800 1200 Balance 800 1200 Intake: Intake, IV Titration 800 1200 Amount Sodium Chloride 0.9% 1, 800 1200 000 ml @ 100 mls/hr IV . Q10H [facility] Rx#:[id number] Other: Voiding Method Toilet Bedside Commode Bedpan # Voids 2 3 # Bowel Movements 1 - Exam Exam of the lower extremities reveals a splint is in place to the left ankle. She is able to wiggle all toes. She has sensation to light touch in all toes. Neurovascular status to the lower extremity is intact. Less than 2 sec cap refill present in all toes. - Constitutional General appearance: Present: no acute distress - Labs CBC & Chem 7: 02/25/18 06:48 02/25/18 06:48 Labs: Abnormal Lab Results - Last 24 Hours (Table) 02/24/18 02/24/18 02/25/18 Range/Units 17:42 20:00 06:48 WBC (3.8-10.6) k/uL RBC (3.80-5.40) m/uL Hgb (11.4-16.0) gm/dL Hct (34.0-46.0) % MCV (80.0-100.0) fL Plt Count (150-450) k/uL Lymphocytes # (1.0-4.8) k/uL Potassium 5.7 H (3.5-5.1) mmol/L Chloride 111 H (98-107) mmol/L BUN 36 H (7-17) mg/dL Creatinine 1.27 H (0.52-1.04) mg/dL POC Glucose (mg/dL) 103 H 125 H (75-99) mg/dL Alkaline Phosphatase 36 L (38-126) U/L Total Protein 4.8 L (6.3-8.2) g/dL Albumin 2.6 L (3.5-5.0) g/dL 02/25/18 02/25/18 02/25/18 Range/Units 06:48 06:54 11:49 WBC 2.8 L (3.8-10.6) k/uL RBC 2.95 L (3.80-5.40) m/uL Hgb 9.6 L (11.4-16.0) gm/dL Hct 29.8 L (34.0-46.0) % MCV 101.0 H (80.0-100.0) fL Plt Count 98 L (150-450) k/uL Lymphocytes # 0.9 L (1.0-4.8) k/uL Potassium (3.5-5.1) mmol/L Chloride (98-107) mmol/L BUN (7-17) mg/dL Creatinine (0.52-1.04) mg/dL POC Glucose (mg/dL) 102 H 134 H (75-99) mg/dL Alkaline Phosphatase (38-126) U/L Total Protein (6.3-8.2) g/dL Albumin (3.5-5.0) g/dL Assessment and Plan (1) Ankle fracture, left Narrative/Plan: She is pending surgical intervention within the next 7-10 days. She is unable to manage at home and rehab placement has been requested. Expect transfer Sunday. Current Visit: Yes Status: Acute Code(s): S82.892A - OTH FRACTURE OF LEFT LOWER LEG, INIT FOR CLOS FX SNOMED Code(s): 01368227 Time with Patient: Less than 30
[2018-02-25 16:44] LABS: Glucose,Whole Blood 136 mg/dL (75-99)
[2018-02-25 19:13] LABS: Glucose,Whole Blood 164 mg/dL (75-99)
[2018-02-25] MEDS: CYCLOBENZAPRINE 10 MG TAB PO SCH (20:02)
[2018-02-26] MEDS: HYDROcodone/APAP 7.5-325MG 1 EACH TAB PO PRN ×3 (04:18→17:24)
[2018-02-26 06:52] LABS: Glucose,Whole Blood 84 mg/dL (75-99)
--- NOTE | 2018-02-26 08:18 | P.PN ---
Subjective Progress Note Date: 02/26/18 Principal diagnosis: Left bimalleolar fracture dislocation. This is a 61-year-old female who we are following regarding her left ankle fracture. She is noted to have a fairly unstable bimalleolar fracture dislocation which is currently reduced and in a short leg splint. The patient continues to have pain. She is awaiting surgical fixation once the swelling has gone down. Objective - Vital Signs Vital signs: Vital Signs Temp 98.1 F 02/26/18 00:57 Pulse 75 02/26/18 00:57 Resp 16 02/26/18 00:57 BP 112/70 02/26/18 00:57 Pulse Ox 96 02/26/18 00:57 Intake & Output 02/25/18 02/26/18 02/26/18 18:59 06:59 18:59 Intake Total 400 1000 Balance 400 1000 Intake: Intake, IV Titration 400 800 Amount Sodium Chloride 0.9% 1, 400 800 000 ml @ 50 mls/hr IV . Q20H [facility] Rx#:[id number] Other 200 Other: # Voids 2 3 # Bowel Movements 1 - Exam This is a pleasant 61-year-old female in no acute distress. She is alert and oriented 3. Exam of the lower extremities reveals a splint is in place. She has full toe motion. Neurovascular status lower extremities intact. - Labs CBC & Chem 7: 02/25/18 06:48 02/25/18 06:48 Labs: Abnormal Lab Results - Last 24 Hours (Table) 02/25/18 02/25/18 02/25/18 Range/Units 06:48 11:49 16:39 WBC 2.8 L (3.8-10.6) k/uL RBC 2.95 L (3.80-5.40) m/uL Hgb 9.6 L (11.4-16.0) gm/dL Hct 29.8 L (34.0-46.0) % MCV 101.0 H (80.0-100.0) fL Plt Count 98 L (150-450) k/uL Lymphocytes # 0.9 L (1.0-4.8) k/uL POC Glucose (mg/dL) 134 H 136 H (75-99) mg/dL 02/25/18 Range/Units 19:12 WBC (3.8-10.6) k/uL RBC (3.80-5.40) m/uL Hgb (11.4-16.0) gm/dL Hct (34.0-46.0) % MCV (80.0-100.0) fL Plt Count (150-450) k/uL Lymphocytes # (1.0-4.8) k/uL POC Glucose (mg/dL) 164 H (75-99) mg/dL Assessment and Plan (1) Ankle fracture, left Current Visit: Yes Status: Acute Code(s): S82.892A - OTH FRACTURE OF LEFT LOWER LEG, INIT FOR CLOS FX SNOMED Code(s): 22547519 (2) Dislocation of ankle, left, closed Current Visit: Yes Status: Acute Code(s): S93.05XA - DISLOCATION OF LEFT ANKLE JOINT, INITIAL ENCOUNTER SNOMED Code(s): 485603476 Plan: The clinical and x-ray findings are discussed the patient. We're planning open reduction showed fixation of the ankle and the swelling comes down. Dr. Booth take the patient to surgery tomorrow for evaluation under x-ray and to check her scan and evaluate the swelling. She'll be placed back into a short leg splint intraoperatively.
[2018-02-26 08:50] LABS: Calcium 8.9 mg/dL (8.4-10.2); Potassium 4.8 mmol/L (3.5-5.1); Total Bilirubin 0.5 mg/dL (0.2-1.3); Total Protein 5.2 g/dL (6.3-8.2)
[2018-02-26 08:52] LABS: Basophils % (A) 0 %; Eosinophils # (A) 0.1 k/uL (0-0.7); Eosinophils % (A) 4 %; HCT 31.3 % (34.0-46.0); HGB 9.7 gm/dL (11.4-16.0); Hypochromasia Slight; Lymphocytes # (A) 0.9 k/uL (1.0-4.8); Lymphocytes % (A) 23 %; MCH 31.1 pg (25.0-35.0); MCHC 31.1 g/dL (31.0-37.0); MCV 100.1 fL (80.0-100.0); Mean Platelet Volume 7.2; Monocytes # (A) 0.2 k/uL (0-1.0); Monocytes % (A) 5 %; Neutrophils # (A) 2.5 k/uL (1.3-7.7); Neutrophils % (A) 65 %; RBC 3.12 m/uL (3.80-5.40); RDW 13.3 % (11.5-15.5); WBC 3.8 k/uL (3.8-10.6)
[2018-02-26 08:53] LABS: Platelet Count 254 k/uL (150-450)
[2018-02-26] MEDS: LISINOPRIL 10 MG TAB PO SCH (09:33)
[2018-02-26] MEDS: MAGNESIUM OXIDE 400 MG TAB PO SCH (09:39)
[2018-02-26] MEDS: PANTOPRAZOLE 40 MG TABLET PO SCH ×2 (09:39→17:30)
[2018-02-26] MEDS: METOPROLOL TARTRATE 50 MG TAB PO SCH (09:40)
[2018-02-26] MEDS: ASPIRIN 81 MG PO SCH (09:40)
[2018-02-26] MEDS: DOCUSATE 100 MG CAP PO SCH ×2 (09:40→20:46)
[2018-02-26] MEDS: FERROUS SULFATE 325 MG TAB PO SCH (09:40)
[2018-02-26] MEDS: buPROPion SR 150 MG TABLET.ER PO SCH ×2 (09:40→20:46)
[2018-02-26] MEDS: PIOGLITAZONE 45 MG TAB PO SCH (09:41)
[2018-02-26] MEDS: SUCRALFATE 1 GM TAB PO SCH ×2 (11:04→20:46)
--- NOTE | 2018-02-26 11:14 | P.PN ---
Subjective Progress Note Date: 02/26/18 Adriana Calderón is a 63 year old female patient of Dr. Snowden. Patient presented to the emergency department after falling down her stairs sustaining injury to her left ankle. Patient states that it was in the middle the night nurse to place something on the stairs that she was unaware of it she tripped and fell. Patient states she heard and felt a pop in her left ankle. Patient denies hitting her head. Patient denies any alcohol or drug associated with event. Patient was noted to have a bimalleolar fracture dislocation. Reduction in the emergency department along with splint being applied with molding to improve reduction to left ankle. Per ortho services surgery will likely be next week to allow swelling to resolve. Patient currently admitted for pain management. Patient has a known past medical history of diabetes mellitus, I disorder, GERD, hyperlipidemia, hypertension, osteoarthritis, renal disease stage IV and heart catheterization 1 year ago. At this time patient denies chest pain or shortness of breath. Pain meds per Ortho services. Patient denies nausea vomiting or diarrhea. Patient denies any urinary burning or frequency. Per ortho anticipate discharge home tomorrow. 02/22/2018 patient still reports pain left ankle. Awaiting final plans per orthopedic service. Unfortunately nursing staff just called me and reported that patient and is having difficulty swallowing her lunch she's also having coughing episodes with it. Patient will be made nothing by mouth speech therapy consulted and chest x-ray has been ordered. She had mildly elevated LFTs Lipitor has been discontinued. LFTs are trending down. Hemoglobin 10 patient denies any blood or black stools. Iron studies ordered. Denies any chest pain or shortness of breath. Denies any nausea or vomiting. Is reporting constipation been 2 days since last bowel movement stool softeners have been added. On 02/23/2018 patient still reporting pain in her left ankle. Per patient concerns for patient's ability to get around at home causing possible ECF placement. Social work has been consulted per nursing staff patient passed bedside swallow evaluation. At this time patient denies chest pain or shortness of breath. Denies any urinary burning or frequency. Denies any nausea vomiting or diarrhea. On 02/24/2018 patient was seen and examined on the surgical floor, she is alert and oriented 3 in no apparent distress, she is sitting comfortably in chair, she is complaining of pain in her left ankle, otherwise she denies any complaints, there is no fever or chills no headache or dizziness no chest pain no shortness of breath no cough no nausea or vomiting no abdominal pain no diarrhea and no urinary symptoms 02/25/2018 patient alert and oriented 3. currently resting comfortably in bed. Denies chest pain or shortness breath. Denies nausea vomiting or diarrhea. Denies any urinary burning or frequency On 02/26/2018 patient is alert and oriented 3. Currently sitting up in chair. Patient denies chest pain or shortness of breath. Denies nausea vomiting or diarrhea. Denies any urinary burning or frequency. Per or so surgical services planning on surgical intervention tomorrow. We'll consult cardiology for cardiac clearance due to cardiac history. Objective - Vital Signs Vital signs: Vital Signs Temp 98.5 F 02/26/18 09:46 Pulse 83 02/26/18 09:46 Resp 16 02/26/18 09:46 BP 103/61 02/26/18 09:46 Pulse Ox 100 02/26/18 09:46 Intake & Output 02/25/18 02/26/18 02/26/18 18:59 06:59 18:59 Intake Total 400 1000 0 Balance 400 1000 0 Intake: Intake, IV Titration 400 800 Amount Sodium Chloride 0.9% 1, 400 800 000 ml @ 50 mls/hr IV . Q20H [facility] Rx#:[id number] Oral 0 Other 200 Other: # Voids 2 3 1 # Bowel Movements 1 1 - Exam Head normocephalic Neck supple Lungs clear to auscultation bilaterally no wheezing or crackles Heart regular rate and rhythm S1-S2, no rub or gallop Abdomen is soft nontender nondistended positive bowel sounds no hepatosplenomegaly Extremities no edema. Left ankle in Tommie wrap Neuro alert and orientated to 3 - Labs CBC & Chem 7: 02/26/18 08:18 02/26/18 08:18 Labs: Abnormal Lab Results - Last 24 Hours (Table) 02/25/18 02/25/18 02/25/18 Range/Units 11:49 16:39 19:12 RBC (3.80-5.40) m/uL Hgb (11.4-16.0) gm/dL Hct (34.0-46.0) % MCV (80.0-100.0) fL Lymphocytes # (1.0-4.8) k/uL Chloride (98-107) mmol/L BUN (7-17) mg/dL Creatinine (0.52-1.04) mg/dL POC Glucose (mg/dL) 134 H 136 H 164 H (75-99) mg/dL Total Protein (6.3-8.2) g/dL Albumin (3.5-5.0) g/dL 02/26/18 02/26/18 Range/Units 08:18 08:18 RBC 3.12 L (3.80-5.40) m/uL Hgb 9.7 L (11.4-16.0) gm/dL Hct 31.3 L (34.0-46.0) % MCV 100.1 H (80.0-100.0) fL Lymphocytes # 0.9 L (1.0-4.8) k/uL Chloride 109 H (98-107) mmol/L BUN 32 H (7-17) mg/dL Creatinine 1.34 H (0.52-1.04) mg/dL POC Glucose (mg/dL) (75-99) mg/dL Total Protein 5.2 L (6.3-8.2) g/dL Albumin 3.0 L (3.5-5.0) g/dL Assessment and Plan Assessment: 1. Fall with bimalleolar lateral fracture and dislocation to the left ankle joint. Patient currently admitted for pain management. Surgery planned for next week due to increased swelling of left foot at this time. Reduction in emergency room. Patient currently in reduction sling. Pain meds per Ortho surgical services. Per or so services surgical intervention will likely been the next 7-10 days per or so planning to be discharged home on Sunday and follow -up in office on Sunday for surgical planning. Patient comes but did express concerns about home placement for patient due to lack of mobility. Social work consult has been placed for possible ECF placement. Surgical services planning intervention tomorrow. Cardiology consulted for cardiac clearance 2. History of diabetes mellitus. Home Actos ordered. Accu-Cheks have been added. A1c 5.7. 3. History of chronic kidney disease stage IV. Patient states she follows outpatient with nephrology services. Creatinine increasing to 1.34 and bun 32. We'll continue to monitor closely 4. History of GERD. Continue home medications 5. History of hyperlipidemia. Lipitor and fenofibrate discontinued due to elevated liver enzymes enzymes. 6. History of essential hypertension 7. History of cardiac catheterization in April 2017. 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 Circumflex appeared to be codominant medically managed. Patient states she follows outpatient with cardiology. Patient currently on aspirin 81 mg. Cardiology services consulted for cardiac clearance. 8. Elevated LFTs. Discontinue Lipitor and fenofibrate. Improving AST 33 and ALT 46. 9. Iron deficiency anemia with a hemoglobin of 10. No signs of active bleeding. Hemoglobuin 9.3 Iron 21, TIBC 397 and iron saturation 5.29. Patient currently on ferrous sulfate 10. Difficulty with swallowing and coughing episode during lunch. Chest x-ray completed showing left basal atelectasis or infiltrate correlate clinically. Per nursing staff patient passed bedside swallow. 11. Patient had low-grade temp 99.5. Urinalysis has been ordered. Patient denies any nausea vomiting or diarrhea. Patient denies any urinary burning upper respiratory symptoms. Patient has remained afebrile. Urinary analysis showing trace amount of leukocyte Estrace. Patient remains asymptomatic. Urine culture will be ordered 12. Hyperkalemia. potassium 5.7. Kayaxlate orderd. Repeat labs have been ordered. Repeat potassium level 4.8 DVT prophylaxis SCD's. heparin discontinued due to platelets at 93. Repeat platelet level this a.m. to 254 heparin will be reinitiated for DVT prophylaxis. GI prophylaxis Protonix Per patient's concerned about home environment due to patient's lack of mobility. Requesting possible ECF placement. Social work has been consulted. Thank you for this consultation we will continue to follow patient closely throughout stay. I performed an examination of the patient and discussed their management with the Nurse Practitioner. I have reviewed the Nurse Practitioner's notes and agree with the documented findings and plan of care
[2018-02-26 12:24] LABS: Glucose,Whole Blood 146 mg/dL (75-99)
[2018-02-26] MEDS: MORPHINE ORAL SOLN 10 MG/5 ML CUP PO PRN (14:08)
[2018-02-26 17:09] LABS: Glucose,Whole Blood 106 mg/dL (75-99)
[2018-02-26 20:17] LABS: Glucose,Whole Blood 129 mg/dL (75-99)
[2018-02-26] MEDS: CYCLOBENZAPRINE 10 MG TAB PO SCH (20:46)
[2018-02-27 06:58] LABS: Glucose,Whole Blood 98 mg/dL (75-99)
[2018-02-27] MEDS: ASPIRIN 81 MG PO SCH (07:41)
[2018-02-27] MEDS: PANTOPRAZOLE 40 MG TABLET PO SCH ×2 (07:41→18:17)
[2018-02-27] MEDS: SUCRALFATE 1 GM TAB PO SCH ×2 (07:42→21:28)
[2018-02-27] MEDS: LISINOPRIL 10 MG TAB PO SCH (07:42)
[2018-02-27] MEDS: METOPROLOL TARTRATE 50 MG TAB PO SCH (07:42)
[2018-02-27] MEDS: PIOGLITAZONE 45 MG TAB PO SCH (07:42)
[2018-02-27] MEDS: DOCUSATE 100 MG CAP PO SCH ×2 (07:42→21:28)
[2018-02-27] MEDS: buPROPion SR 150 MG TABLET.ER PO SCH ×2 (07:45→21:28)
[2018-02-27 07:57] LABS: Calcium 9.2 mg/dL (8.4-10.2); Potassium 4.7 mmol/L (3.5-5.1); Total Bilirubin 0.4 mg/dL (0.2-1.3); Total Protein 5.3 g/dL (6.3-8.2)
[2018-02-27 08:58] LABS: Basophils % (A) 1 %; Eosinophils # (A) 0.1 k/uL (0-0.7); Eosinophils % (A) 3 %; HGB 9.4 gm/dL (11.4-16.0); Lymphocytes # (A) 0.9 k/uL (1.0-4.8); Lymphocytes % (A) 24 %; MCH 31.4 pg (25.0-35.0); MCHC 31.4 g/dL (31.0-37.0); MCV 99.8 fL (80.0-100.0); Mean Platelet Volume 7.4; Monocytes # (A) 0.2 k/uL (0-1.0); Monocytes % (A) 5 %; Neutrophils # (A) 2.3 k/uL (1.3-7.7); Neutrophils % (A) 66 %; Platelet Count 234 k/uL (150-450); RDW 13.3 % (11.5-15.5); WBC 3.5 k/uL (3.8-10.6)
--- NOTE | 2018-02-27 11:12 | ECHOF ---
Referral Reason:Cardiac Clearence MEASUREMENTS -------- HEIGHT: 154.9 cm WEIGHT: 77.1 kg BP: 116/63 RVIDd: 2.7 cm (< 3.3) IVSd: 1.1 cm (0.6 - 1.1) LVIDd: 4.4 cm (3.9 - 5.3) LVPWd: 1.0 cm (0.6 - 1.1) IVSs: 1.3 cm LVIDs: 3.3 cm LVPWs: 1.4 cm LA Diam: 2.9 cm (2.7 - 3.8) LAESV Index (A-L): 38.28 ml/m Ao Diam: 3.2 cm (2.0 - 3.7) AV Cusp: 1.9 cm (1.5 - 2.6) MV EXCURSION: 14.664 mm (> 18.000) MV EF SLOPE: 94 mm/s (70 - 150) EPSS: 0.2 cm MV E Get: 1.30 m/s MV DecT: 182 ms MV A Get: 1.20 m/s MV E/A Ratio: 1.08 RAP: 15.00 mmHg RVSP: 41.81 mmHg FINDINGS -------- Sinus rhythm. This was a technically good study. The left ventricular size is normal. Left ventricular wall thickness is normal. Overall left vent ricular systolic function is normal with, an EF between 60 - 65 %. The right ventricle is normal in size. LA is moderately dilated 34-39 ml/m2 The right atrium is normal in size. There is mild aortic valve sclerosis. Mild mitral regurgitation is present. Mild tricuspid regurgitation present. There is mild pulmonary hypertension. Trace/mild (physiologic) pulmonic regurgitation. The aortic root size is normal. The inferior vena cava is dilated with no significant inspiratory collapse which is consistent estima freedom right atrial pressure of >20 mmHg. There is no pericardial effusion. CONCLUSIONS -------- 1. Sinus rhythm. 2. This was a technically good study. 3. The left ventricular size is normal. 4. Left ventricular wall thickness is normal. 5. Overall left ventricular systolic function is normal with, an EF between 60 - 65 %. 6. The right ventricle is normal in size. 7. LA is moderately dilated 34-39 ml/m2 8. The right atrium is normal in size. 9. There is mild aortic valve sclerosis. 10. Mild mitral regurgitation is present. 11. Mild tricuspid regurgitation present. 12. There is mild pulmonary hypertension. 13. Trace/mild (physiologic) pulmonic regurgitation. 14. The aortic root size is normal. 15. The inferior vena cava is dilated with no significant inspiratory collapse which is consistent es timated right atrial pressure of >20 mmHg. 16. There is no pericardial effusion. L[employer] BROKER: Oksana Gomez RDCS
[2018-02-27] MEDS: MAGNESIUM OXIDE 400 MG TAB PO SCH (11:16)
[2018-02-27] MEDS: FERROUS SULFATE 325 MG TAB PO SCH (11:16)
[2018-02-27 11:25] LABS: Glucose,Whole Blood 93 mg/dL (75-99)
--- NOTE | 2018-02-27 12:01 | CONS ---
CONSULTATION Mrs. Calderón is a 63-year-old female who is seen for the preop cardiac evaluation. Patient's medical records reviewed. This patient is admitted with a history of fall and right ankle fracture and is supposed to undergo the surgery today. Patient has been in the hospital for the last 3-4 days. She has remained stable cardiac-caputo. She has not been having any chest pain or shortness of breath. Patient has a known cardiac history because of the abnormal stress test in the past. She underwent cardiac catheterization. The right coronary artery was probably totally occluded. The left system was normal and has been advised medical treatment. She has not been having any significant exertional chest pain or shortness of breath. Patient does have a history of diabetes. Patient denies any history of stroke. Patient has a chronic kidney disease. HOME MEDICATIONS: Included Zoloft, Lopressor, Zestril, Flexeril, Lipitor, aspirin and fenofibrate. PHYSICAL EXAMINATION: At present reveals a 63-year-old female who does not appear to be in any acute distress. Blood pressure is 116/63 mmHg. HEENT examination is negative. Neck is supple. There is no increase in jugular venous pressure. Both the carotid pulses are felt, there is no bruit. Chest is symmetrical. Heart, the PMI is not felt. First and second heart sounds are normal. There is no evidence of any murmur Lungs are clinically clear to auscultation and percussion. Abdomen is soft. Liver and spleen are not enlarged. Extremities, peripheral pulses are 1+. Patient's electrolytes are normal. Patient's liver enzymes were mildly elevated initially. FINAL IMPRESSION: This patient is stable, cardiac-caputo without any symptoms suggestive of unstable angina or congestive heart failure. Patient has a known history of coronary artery disease with total occlusion of the right coronary artery. Patient also has evidence of chronic anemia. RECOMMENDATIONS: We will recommend to continue the patient on beta marisel under perioperative. I am not exactly sure whether patient rise in the liver enzymes was secondary to Lipitor and fenofibrate. I would recommend to try the patient on Crestor probably from tomorrow on 10 mg and follow the liver function tests. We will recommend to hold up the fenofibrate. EKG will be done and echocardiogram will be done. MMODL / IJN: [id number] /
[2018-02-27] MEDS ORDERED: IV FLUID CONTINUATION 1,000 ML IV ONE (12:48)
[2018-02-27] MEDS: ONDANSETRON 4 MG/2 ML VIAL IVP PRN (12:49)
--- NOTE | 2018-02-27 13:15 | P.PN ---
Subjective Progress Note Date: 02/27/18 Adriana Calderón is a 63 year old female patient of Dr. Snowden. Patient presented to the emergency department after falling down her stairs sustaining injury to her left ankle. Patient states that it was in the middle the night nurse to place something on the stairs that she was unaware of it she tripped and fell. Patient states she heard and felt a pop in her left ankle. Patient denies hitting her head. Patient denies any alcohol or drug associated with event. Patient was noted to have a bimalleolar fracture dislocation. Reduction in the emergency department along with splint being applied with molding to improve reduction to left ankle. Per ortho services surgery will likely be next week to allow swelling to resolve. Patient currently admitted for pain management. Patient has a known past medical history of diabetes mellitus, I disorder, GERD, hyperlipidemia, hypertension, osteoarthritis, renal disease stage IV and heart catheterization 1 year ago. At this time patient denies chest pain or shortness of breath. Pain meds per Ortho services. Patient denies nausea vomiting or diarrhea. Patient denies any urinary burning or frequency. Per ortho anticipate discharge home tomorrow. 02/22/2018 patient still reports pain left ankle. Awaiting final plans per orthopedic service. Unfortunately nursing staff just called me and reported that patient and is having difficulty swallowing her lunch she's also having coughing episodes with it. Patient will be made nothing by mouth speech therapy consulted and chest x-ray has been ordered. She had mildly elevated LFTs Lipitor has been discontinued. LFTs are trending down. Hemoglobin 10 patient denies any blood or black stools. Iron studies ordered. Denies any chest pain or shortness of breath. Denies any nausea or vomiting. Is reporting constipation been 2 days since last bowel movement stool softeners have been added. On 02/23/2018 patient still reporting pain in her left ankle. Per patient concerns for patient's ability to get around at home causing possible ECF placement. Social work has been consulted per nursing staff patient passed bedside swallow evaluation. At this time patient denies chest pain or shortness of breath. Denies any urinary burning or frequency. Denies any nausea vomiting or diarrhea. On 02/24/2018 patient was seen and examined on the surgical floor, she is alert and oriented 3 in no apparent distress, she is sitting comfortably in chair, she is complaining of pain in her left ankle, otherwise she denies any complaints, there is no fever or chills no headache or dizziness no chest pain no shortness of breath no cough no nausea or vomiting no abdominal pain no diarrhea and no urinary symptoms 02/25/2018 patient alert and oriented 3. currently resting comfortably in bed. Denies chest pain or shortness breath. Denies nausea vomiting or diarrhea. Denies any urinary burning or frequency On 02/26/2018 patient is alert and oriented 3. Currently sitting up in chair. Patient denies chest pain or shortness of breath. Denies nausea vomiting or diarrhea. Denies any urinary burning or frequency. Per or so surgical services planning on surgical intervention tomorrow. We'll consult cardiology for cardiac clearance due to cardiac history. On 02/27/2018 alert and oriented 3 resting in bed. Planning on closed reduction of left ankle today per ortho surgery. Requesting cardiology consult to be completed prior to surgical procedure. Second surgery planning for Sunday. At this time patient denies chest pain or shortness of breath. Patient denies nausea vomiting or diarrhea. Patient denies any urinary burning or urinary frequency Objective - Vital Signs Vital signs: Vital Signs Temp 99.3 F 02/27/18 12:44 Pulse 74 02/27/18 12:44 Resp 16 02/27/18 12:44 BP 133/60 02/27/18 12:44 Pulse Ox 97 02/27/18 12:44 Intake & Output 02/26/18 02/27/18 02/27/18 18:59 06:59 18:59 Intake Total 240 175 Balance 240 175 Intake: Intake, IV Titration 175 Amount Sodium Chloride 0.9% 1, 175 000 ml @ 50 mls/hr IV . Q20H COUNTS INCLUDE 234 BEDS AT [facility] Rx#:[id number] Oral 240 Other: Voiding Method Bedside Commode Bedside Commode Bedpan Bedpan # Voids 2 1 # Bowel Movements 1 - Exam Head normocephalic Neck supple Lungs clear to auscultation bilaterally no wheezing or crackles Heart regular rate and rhythm S1-S2, no rub or gallop Abdomen is soft nontender nondistended positive bowel sounds no hepatosplenomegaly Extremities no edema. Left ankle in Tommie wrap Neuro alert and orientated to 3 - Labs CBC & Chem 7: 02/27/18 07:14 02/27/18 07:14 Labs: Abnormal Lab Results - Last 24 Hours (Table) 02/26/18 02/26/18 02/27/18 Range/Units 17:06 20:07 07:14 WBC (3.8-10.6) k/uL RBC (3.80-5.40) m/uL Hgb (11.4-16.0) gm/dL Hct (34.0-46.0) % Lymphocytes # (1.0-4.8) k/uL Chloride 109 H (98-107) mmol/L BUN 27 H (7-17) mg/dL Creatinine 1.41 H (0.52-1.04) mg/dL POC Glucose (mg/dL) 106 H 129 H (75-99) mg/dL Total Protein 5.3 L (6.3-8.2) g/dL Albumin 3.0 L (3.5-5.0) g/dL 02/27/18 Range/Units 07:14 WBC 3.5 L (3.8-10.6) k/uL RBC 3.00 L (3.80-5.40) m/uL Hgb 9.4 L (11.4-16.0) gm/dL Hct 30.0 L (34.0-46.0) % Lymphocytes # 0.9 L (1.0-4.8) k/uL Chloride (98-107) mmol/L BUN (7-17) mg/dL Creatinine (0.52-1.04) mg/dL POC Glucose (mg/dL) (75-99) mg/dL Total Protein (6.3-8.2) g/dL Albumin (3.5-5.0) g/dL Microbiology - Last 24 Hours (Table) 02/26/18 23:10 Urine Culture - Preliminary Urine,Clean Catch Assessment and Plan Assessment: 1. Fall with bimalleolar lateral fracture and dislocation to the left ankle joint. Patient currently admitted for pain management. Surgery planned for next week due to increased swelling of left foot at this time. Reduction in emergency room. Patient currently in reduction sling. Pain meds per Ortho surgical services. Per or so services surgical intervention will likely been the next 7-10 days per or so planning to be discharged home on Sunday and follow -up in office on Sunday for surgical planning. Patient comes but did express concerns about home placement for patient due to lack of mobility. Social work consult has been placed for possible ECF placement. Surgical services planning intervention tomorrow. Cardiology consulted for cardiac clearance. Planning for closed reduction of left ankle today per Ortho services. Plan for surgery on Sunday. 2. History of diabetes mellitus. Home Actos ordered. Accu-Cheks have been added. A1c 5.7. 3. History of chronic kidney disease stage IV. Patient states she follows outpatient with nephrology services. Creatinine increasing to 1.34 and bun 32. We'll continue to monitor closely 4. History of GERD. Continue home medications 5. History of hyperlipidemia. Lipitor and fenofibrate discontinued due to elevated liver enzymes enzymes. 6. History of essential hypertension 7. History of cardiac catheterization in April 2017. 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 Circumflex appeared to be codominant medically managed. Patient states she follows outpatient with cardiology. Patient currently on aspirin 81 mg. Cardiology services consulted for cardiac clearance. Cardiology has cleared patient for surgery 2-D echo completed. 2-D echo showing EF between 60 and 65%. 8. Elevated LFTs. Discontinue Lipitor and fenofibrate. Improving AST 33 and ALT 46. Resolved 9. Iron deficiency anemia with a hemoglobin of 10. No signs of active bleeding. Hemoglobuin 9.3 Iron 21, TIBC 397 and iron saturation 5.29. Patient currently on ferrous sulfate 10. Difficulty with swallowing and coughing episode during lunch. Chest x-ray completed showing left basal atelectasis or infiltrate correlate clinically. Per nursing staff patient passed bedside swallow. 11. Patient had low-grade temp 99.5. Urinalysis has been ordered. Patient denies any nausea vomiting or diarrhea. Patient denies any urinary burning upper respiratory symptoms. Patient has remained afebrile. Urinary analysis showing trace amount of leukocyte Estrace. Patient remains asymptomatic. Urine culture will be ordered 12. Hyperkalemia. potassium 5.7. Kayaxlate orderd. Repeat labs have been ordered. Repeat potassium level 4.7 DVT prophylaxis SCD's. heparin discontinued due to platelets at 93. Repeat platelet level this a.m. to 254 heparin will be reinitiated for DVT prophylaxis after surgery. GI prophylaxis Protonix Per patient's concerned about home environment due to patient's lack of mobility. Requesting possible ECF placement. Social work has been consulted. Thank you for this consultation we will continue to follow patient closely throughout stay. I performed an examination of the patient and discussed their management with the Nurse Practitioner. I have reviewed the Nurse Practitioner's notes and agree with the documented findings and plan of care
[2018-02-27] MEDS ORDERED: LIDOCAINE 1% INJ 10MG/ML (20 ML MDV) ONE (14:39)
[2018-02-27] MEDS ORDERED: MIDAZOLAM 2 MG/2 ML VIAL ONE (14:39)
[2018-02-27] MEDS ORDERED: KETAMINE 10 MG/ML 20 ML VIAL ONE (14:39)
[2018-02-27] MEDS ORDERED: PROPOFOL 10 MG/ML 20 ML VIAL IV ONE (14:39)
[2018-02-27] MEDS ORDERED: fentaNYL (PF) 50 MCG/ML 2 ML AMP ONE (14:39)
[2018-02-27] MEDS ORDERED: LACTATED RINGERS 1,000 ML IV ONE (14:55)
[2018-02-27] MEDS ORDERED: HYDROmorphone 1 MG/ML 1 ML SYRINGE IVP ONE ×3 (15:37→15:58)
--- NOTE | 2018-02-27 15:39 | P.OP ---
Date of Procedure: 02/27/18 Procedure(s) Performed: PREOPERATIVE DIAGNOSES: Left ankle bimalleolar fracture POSTOPERATIVE DIAGNOSES: Left ankle bimalleolar fracture PROCEDURES PERFORMED: 1. Left ankle bimalleolar fracture closed reduction with application of short leg splint 2. Examination of left ankle under anesthesia with mini-fluoroscope ANESTHESIA: fire officer: None COMPLICATIONS: None ESTIMATED BLOOD LOSS: Less than 10 mL. TOURNIQUET: not inflated DISPOSITION: To post-anesthesia care unit INDICATIONS: The patient is a 63 year old obese female with a history of left ankle fracture approximately one week ago, who presents to the operating room today for examination of the ankle under anesthesia with reduction and splinting of ankle fracture. The ankle was reduced last week, but considering its instability and the patient's body habitus, I felt that it would be prudent to reexamine the skin, assess swelling and re-reduce the fracture under fluoroscopic guidance. A new splint will be placed. I have discussed this procedure with the patient, who wishes to proceed with the operative plan. I have explained the details of this surgery thoroughly and also explained the potential risks and complications. These are inclusive of, but not limited to: Compartment syndrome, failure to be able to reduce the fracture, cast sores, nerve damage, vascular injury, need for further surgery, failure to relieve symptoms, persistence or worsening of problems, , and other risks. The patient is aware of these risks and agrees to proceed with surgery. The consent form has been signed. PROCEDURE: After appropriate consent was obtained, the patient was taken to the operating room and placed supine on the operating table. General anesthesia was initiated. The C-arm fluoroscopic preparation center coordinator was used to assess the reduction in the current splint. The patient's ankle had fairly significant lateral talar shift and was approximately 1. 2 cm displaced laterally relative to the medial malleolus which was fractured and displaced. The left ankle was removed from the splint and examined and manipulated under fluoroscopic examination with a C-arm device. Skin was intact, swelling was mild to moderate, and no cast sores were seen. The ankle fracture was somewhat unstable but with a combination of longitudinal traction, and internal rotation with some lateral support, the fracture was able to be nearly completely anatomically reduced. This was assessed under C-arm imaging in 2 planes. A well-molded, well-padded short leg cast was applied with the ankle in neutral dorsiflexion. Final c-arm images confirmed the ankle to be in satisfactory alignment. Patient tolerated the procedure well and taken to recovery room in stable condition.
[2018-02-27 16:10] LABS: Glucose,Whole Blood 73 mg/dL (75-99)
[2018-02-27] MEDS ORDERED: HYDROcodone/APAP 5-325MG 1 EACH TAB PO PRN (16:22)
[2018-02-27] MEDS ORDERED: diphenhydrAMINE 25 MG CAP PO PRN (16:22)
[2018-02-27] MEDS ORDERED: SENNOSIDES-DOCUSATE SODIUM 1 EACH TAB PO PRN (16:22)
[2018-02-27] MEDS ORDERED: MORPHINE SULFATE 2 MG/ML SYRINGE IV PRN (16:22)
[2018-02-27] MEDS: SODIUM CHLORIDE 0.9% 1,000 ML IV SCH (16:39)
[2018-02-27 17:19] LABS: Glucose,Whole Blood 89 mg/dL (75-99)
[2018-02-27] MEDS: LACTATED RINGERS 1,000 ML IV SCH (18:18)
[2018-02-27 20:06] LABS: Glucose,Whole Blood 176 mg/dL (75-99)
[2018-02-27] MEDS: CYCLOBENZAPRINE 10 MG TAB PO SCH (21:28)
[2018-02-27] MEDS: HYDROcodone/APAP 5-325MG 1 EACH TAB PO PRN (21:37)
[2018-02-28] MEDS: LACTATED RINGERS 1,000 ML IV SCH ×3 (03:53→17:59)
[2018-02-28 07:03] LABS: Glucose,Whole Blood 79 mg/dL (75-99)
[2018-02-28] MEDS: HYDROcodone/APAP 5-325MG 1 EACH TAB PO PRN ×3 (07:42→22:09)
[2018-02-28 08:34] LABS: Basophils % (A) 1 %; Eosinophils # (A) 0.2 k/uL (0-0.7); Eosinophils % (A) 5 %; HCT 30.6 % (34.0-46.0); HGB 9.9 gm/dL (11.4-16.0); Hypochromasia Slight; Lymphocytes # (A) 0.8 k/uL (1.0-4.8); Lymphocytes % (A) 24 %; MCH 32.5 pg (25.0-35.0); MCHC 32.2 g/dL (31.0-37.0); MCV 101.1 fL (80.0-100.0); Macrocytosis Slight; Mean Platelet Volume 7.1; Monocytes # (A) 0.2 k/uL (0-1.0); Monocytes % (A) 5 %; Neutrophils # (A) 2.2 k/uL (1.3-7.7); Neutrophils % (A) 64 %; Platelet Count 233 k/uL (150-450); RBC 3.03 m/uL (3.80-5.40); RDW 13.3 % (11.5-15.5); WBC 3.5 k/uL (3.8-10.6)
[2018-02-28 08:52] LABS: Albumin 2.9 g/dL (3.5-5.0); Calcium 9.2 mg/dL (8.4-10.2); Potassium 4.7 mmol/L (3.5-5.1); Total Bilirubin 0.5 mg/dL (0.2-1.3); Total Protein 5.1 g/dL (6.3-8.2)
[2018-02-28] MEDS: buPROPion SR 150 MG TABLET.ER PO SCH ×2 (09:08→19:57)
[2018-02-28] MEDS: DOCUSATE 100 MG CAP PO SCH ×2 (09:08→19:55)
[2018-02-28] MEDS: ASPIRIN 81 MG PO SCH (09:08)
[2018-02-28] MEDS: SUCRALFATE 1 GM TAB PO SCH ×2 (09:09→19:55)
[2018-02-28] MEDS: METOPROLOL TARTRATE 50 MG TAB PO SCH (09:09)
[2018-02-28] MEDS: LISINOPRIL 10 MG TAB PO SCH (09:09)
[2018-02-28] MEDS: PIOGLITAZONE 45 MG TAB PO SCH (09:09)
[2018-02-28] MEDS: PANTOPRAZOLE 40 MG TABLET PO SCH ×2 (09:16→18:34)
[2018-02-28] MEDS: SODIUM CHLORIDE 0.9% 1,000 ML IV SCH (09:17)
--- NOTE | 2018-02-28 10:08 | P.PN ---
Subjective Progress Note Date: 02/28/18 Principal diagnosis: Left bimalleolar fracture dislocation. This is a 61-year-old female who we are following regarding her left ankle fracture. She is noted to have a fairly unstable bimalleolar fracture dislocation which is currently reduced and in a short leg splint. The patient continues to have pain. She is awaiting surgical fixation once the swelling has gone down. She underwent valuation of skin and repeat closed reduction under anesthesia on 02/27/2018. She is resplinted. Exam revealed improved swelling and adequate skin conditions. We're planning ORIF of the ankle tomorrow. Objective - Vital Signs Vital signs: Vital Signs Temp 97.5 F L 02/28/18 07:37 Pulse 84 02/28/18 09:12 Resp 16 02/28/18 09:12 BP 114/70 02/28/18 09:12 Pulse Ox 95 02/28/18 09:12 Intake & Output 02/27/18 02/28/18 02/28/18 18:59 06:59 18:59 Intake Total 450 800 100 Balance 450 800 100 Intake: IV 450 Intake, IV Titration 800 Amount Lactated Ringers 1,000 ml 800 @ 100 mls/hr IV .Q10H [facility] Rx#:[id number] Oral 100 Other: Voiding Method Bedside Commode Bedpan # Voids 3 - Exam This is a pleasant 61-year-old female in no acute distress. She is alert and oriented 3. Exam of the lower extremities reveals a splint is in place. She has full toe motion. Neurovascular status lower extremities intact. - Labs CBC & Chem 7: 02/28/18 07:58 02/28/18 07:58 Labs: Abnormal Lab Results - Last 24 Hours (Table) 02/27/18 02/27/18 02/28/18 Range/Units 16:10 20:03 07:58 WBC (3.8-10.6) k/uL RBC (3.80-5.40) m/uL Hgb (11.4-16.0) gm/dL Hct (34.0-46.0) % MCV (80.0-100.0) fL Lymphocytes # (1.0-4.8) k/uL Chloride 109 H (98-107) mmol/L BUN 24 H (7-17) mg/dL Creatinine 1.38 H (0.52-1.04) mg/dL POC Glucose (mg/dL) 73 L 176 H (75-99) mg/dL Total Protein 5.1 L (6.3-8.2) g/dL Albumin 2.9 L (3.5-5.0) g/dL 02/28/18 Range/Units 07:58 WBC 3.5 L (3.8-10.6) k/uL RBC 3.03 L (3.80-5.40) m/uL Hgb 9.9 L (11.4-16.0) gm/dL Hct 30.6 L (34.0-46.0) % MCV 101.1 H (80.0-100.0) fL Lymphocytes # 0.8 L (1.0-4.8) k/uL Chloride (98-107) mmol/L BUN (7-17) mg/dL Creatinine (0.52-1.04) mg/dL POC Glucose (mg/dL) (75-99) mg/dL Total Protein (6.3-8.2) g/dL Albumin (3.5-5.0) g/dL Microbiology - Last 24 Hours (Table) 02/26/18 23:10 Urine Culture - Preliminary Urine,Clean Catch Assessment and Plan (1) Ankle fracture, left Current Visit: Yes Status: Acute Code(s): S82.892A - OTH FRACTURE OF LEFT LOWER LEG, INIT FOR CLOS FX SNOMED Code(s): 67953517 (2) Dislocation of ankle, left, closed Current Visit: Yes Status: Acute Code(s): S93.05XA - DISLOCATION OF LEFT ANKLE JOINT, INITIAL ENCOUNTER SNOMED Code(s): 225752396 Plan: The clinical and x-ray findings are discussed the patient. We're planning open reduction showed fixation of the ankle tomorrow. She will most likely require inpatient rehab postoperatively.
--- NOTE | 2018-02-28 10:51 | P.PN ---
Subjective Progress Note Date: 02/28/18 Adriana Calderón is a 63 year old female patient of Dr. Snowden. Patient presented to the emergency department after falling down her stairs sustaining injury to her left ankle. Patient states that it was in the middle the night nurse to place something on the stairs that she was unaware of it she tripped and fell. Patient states she heard and felt a pop in her left ankle. Patient denies hitting her head. Patient denies any alcohol or drug associated with event. Patient was noted to have a bimalleolar fracture dislocation. Reduction in the emergency department along with splint being applied with molding to improve reduction to left ankle. Per ortho services surgery will likely be next week to allow swelling to resolve. Patient currently admitted for pain management. Patient has a known past medical history of diabetes mellitus, I disorder, GERD, hyperlipidemia, hypertension, osteoarthritis, renal disease stage IV and heart catheterization 1 year ago. At this time patient denies chest pain or shortness of breath. Pain meds per Ortho services. Patient denies nausea vomiting or diarrhea. Patient denies any urinary burning or frequency. Per ortho anticipate discharge home tomorrow. 02/22/2018 patient still reports pain left ankle. Awaiting final plans per orthopedic service. Unfortunately nursing staff just called me and reported that patient and is having difficulty swallowing her lunch she's also having coughing episodes with it. Patient will be made nothing by mouth speech therapy consulted and chest x-ray has been ordered. She had mildly elevated LFTs Lipitor has been discontinued. LFTs are trending down. Hemoglobin 10 patient denies any blood or black stools. Iron studies ordered. Denies any chest pain or shortness of breath. Denies any nausea or vomiting. Is reporting constipation been 2 days since last bowel movement stool softeners have been added. On 02/23/2018 patient still reporting pain in her left ankle. Per patient concerns for patient's ability to get around at home causing possible ECF placement. Social work has been consulted per nursing staff patient passed bedside swallow evaluation. At this time patient denies chest pain or shortness of breath. Denies any urinary burning or frequency. Denies any nausea vomiting or diarrhea. On 02/24/2018 patient was seen and examined on the surgical floor, she is alert and oriented 3 in no apparent distress, she is sitting comfortably in chair, she is complaining of pain in her left ankle, otherwise she denies any complaints, there is no fever or chills no headache or dizziness no chest pain no shortness of breath no cough no nausea or vomiting no abdominal pain no diarrhea and no urinary symptoms 02/25/2018 patient alert and oriented 3. currently resting comfortably in bed. Denies chest pain or shortness breath. Denies nausea vomiting or diarrhea. Denies any urinary burning or frequency On 02/26/2018 patient is alert and oriented 3. Currently sitting up in chair. Patient denies chest pain or shortness of breath. Denies nausea vomiting or diarrhea. Denies any urinary burning or frequency. Per or so surgical services planning on surgical intervention tomorrow. We'll consult cardiology for cardiac clearance due to cardiac history. On 02/27/2018 alert and oriented 3 resting in bed. Planning on closed reduction of left ankle today per ortho surgery. Requesting cardiology consult to be completed prior to surgical procedure. Second surgery planning for Sunday. At this time patient denies chest pain or shortness of breath. Patient denies nausea vomiting or diarrhea. Patient denies any urinary burning or urinary frequency On 02/28/2018 patient is alert and oriented 3 currently sitting up in chair. Patient underwent a closed reduction under anesthesia yesterday. At this time patient denies chest pain or shortness of breath. Denies nausea vomiting or diarrhea. Denies any urinary burning or frequency. Per ortho planning open reduction and fixation of the ankle tomorrow 03/01/2018. Objective - Vital Signs Vital signs: Vital Signs Temp 97.5 F L 02/28/18 07:37 Pulse 84 02/28/18 09:12 Resp 16 02/28/18 09:12 BP 114/70 02/28/18 09:12 Pulse Ox 95 02/28/18 09:12 Intake & Output 02/27/18 02/28/18 02/28/18 18:59 06:59 18:59 Intake Total 450 800 100 Balance 450 800 100 Intake: IV 450 Intake, IV Titration 800 Amount Lactated Ringers 1,000 ml 800 @ 100 mls/hr IV .Q10H [facility] Rx#:[id number] Oral 100 Other: Voiding Method Bedside Commode Bedpan # Voids 3 - Exam Head normocephalic Neck supple Lungs clear to auscultation bilaterally no wheezing or crackles Heart regular rate and rhythm S1-S2, no rub or gallop Abdomen is soft nontender nondistended positive bowel sounds no hepatosplenomegaly Extremities no edema. Left ankle in Tommie wrap Neuro alert and orientated to 3 - Labs CBC & Chem 7: 02/28/18 07:58 02/28/18 07:58 Labs: Abnormal Lab Results - Last 24 Hours (Table) 02/27/18 02/27/18 02/28/18 Range/Units 16:10 20:03 07:58 WBC (3.8-10.6) k/uL RBC (3.80-5.40) m/uL Hgb (11.4-16.0) gm/dL Hct (34.0-46.0) % MCV (80.0-100.0) fL Lymphocytes # (1.0-4.8) k/uL Chloride 109 H (98-107) mmol/L BUN 24 H (7-17) mg/dL Creatinine 1.38 H (0.52-1.04) mg/dL POC Glucose (mg/dL) 73 L 176 H (75-99) mg/dL Total Protein 5.1 L (6.3-8.2) g/dL Albumin 2.9 L (3.5-5.0) g/dL 02/28/18 Range/Units 07:58 WBC 3.5 L (3.8-10.6) k/uL RBC 3.03 L (3.80-5.40) m/uL Hgb 9.9 L (11.4-16.0) gm/dL Hct 30.6 L (34.0-46.0) % MCV 101.1 H (80.0-100.0) fL Lymphocytes # 0.8 L (1.0-4.8) k/uL Chloride (98-107) mmol/L BUN (7-17) mg/dL Creatinine (0.52-1.04) mg/dL POC Glucose (mg/dL) (75-99) mg/dL Total Protein (6.3-8.2) g/dL Albumin (3.5-5.0) g/dL Microbiology - Last 24 Hours (Table) 02/26/18 23:10 Urine Culture - Preliminary Urine,Clean Catch Assessment and Plan Assessment: 1. Fall with bimalleolar lateral fracture and dislocation to the left ankle joint. Patient currently admitted for pain management. Surgery planned for next week due to increased swelling of left foot at this time. Reduction in emergency room. Patient currently in reduction sling. Pain meds per Ortho surgical services. Per or so services surgical intervention will likely been the next 7-10 days per or so planning to be discharged home on Sunday and follow -up in office on Sunday for surgical planning. Patient comes but did express concerns about home placement for patient due to lack of mobility. Social work consult has been placed for possible ECF placement. Surgical services planning intervention tomorrow. Cardiology consulted for cardiac clearance. Planning for closed reduction of left ankle today per Ortho services. Patient underwent closed reduction under anesthesia of the ankle yesterday. Planning for open reduction with fixation of ankle tomorrow 03/01/2018 per ortho. 2. History of diabetes mellitus. Home Actos ordered. Accu-Cheks have been added. A1c 5.7. 3. History of chronic kidney disease stage IV. Patient states she follows outpatient with nephrology services. Creatinine increasing to 1.34 and bun 32. We'll continue to monitor closely 4. History of GERD. Continue home medications 5. History of hyperlipidemia. Lipitor and fenofibrate discontinued due to elevated liver enzymes enzymes. 6. History of essential hypertension 7. History of cardiac catheterization in April 2017. 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 Circumflex appeared to be codominant medically managed. Patient states she follows outpatient with cardiology. Patient currently on aspirin 81 mg. Cardiology services consulted for cardiac clearance. Cardiology has cleared patient for surgery 2-D echo completed. 2-D echo showing EF between 60 and 65%. 8. Elevated LFTs. Discontinue Lipitor and fenofibrate. Improving AST 33 and ALT 46. Resolved 9. Iron deficiency anemia with a hemoglobin of 10. No signs of active bleeding. Hemoglobuin 9.3 Iron 21, TIBC 397 and iron saturation 5.29. Patient currently on ferrous sulfate 10. Difficulty with swallowing and coughing episode during lunch. Chest x-ray completed showing left basal atelectasis or infiltrate correlate clinically. Per nursing staff patient passed bedside swallow. 11. Patient had low-grade temp 99.5. Urinalysis has been ordered. Patient denies any nausea vomiting or diarrhea. Patient denies any urinary burning upper respiratory symptoms. Patient has remained afebrile. Urinary analysis showing trace amount of leukocyte Estrace. Patient remains asymptomatic. Urine culture will be ordered 12. Hyperkalemia. potassium 5.7. Kayaxlate orderd. Repeat labs have been ordered. Repeat potassium level 4.7 DVT prophylaxis SCD's. heparin discontinued due to platelets at 93. Repeat platelet level this a.m. to 254 heparin will be reinitiated for DVT prophylaxis after surgery. GI prophylaxis Protonix Patient will most likely require ECF for rehab post surgery. Case management and social services coordinator consulted Thank you for this consultation we will continue to follow patient closely throughout stay. I performed an examination of the patient and discussed their management with the Nurse Practitioner. I have reviewed the Nurse Practitioner's notes and agree with the documented findings and plan of care
--- NOTE | 2018-02-28 11:19 | FL ---
Fluoroscopy HISTORY: Closed reduction 7 seconds fluoroscopy time supplied to the referring clinician. 2 intraoperative C-arm images doc ument the procedure. See dictated report from orthopedic surgery.
--- NOTE | 2018-02-28 11:28 | XR ---
Limited left ankle HISTORY: Post reduction 2 intraoperative C-arm images document the procedure
[2018-02-28 11:58] LABS: Glucose,Whole Blood 94 mg/dL (75-99)
[2018-02-28] MEDS: FERROUS SULFATE 325 MG TAB PO SCH (12:19)
[2018-02-28] MEDS: MAGNESIUM OXIDE 400 MG TAB PO SCH (12:19)
[2018-02-28] MEDS ORDERED: MIDAZOLAM 2 MG/2 ML VIAL IV PRN (15:57)
[2018-02-28] MEDS ORDERED: ONDANSETRON 4 MG/2 ML VIAL IVP ONE (15:57)
[2018-02-28] MEDS ORDERED: LIDOCAINE 1% 20 ML VIAL (10MG/ML) FOR IV START INTRADERMA PRN (15:57)
[2018-02-28] MEDS ORDERED: DEXAMETHASONE SOD PHOSPHATE 10 MG/ML 1 ML VIAL IV ONE (15:57)
[2018-02-28] MEDS ORDERED: fentaNYL (PF) 50 MCG/ML 2 ML AMP IV PRN (15:57)
[2018-02-28 16:34] LABS: Glucose,Whole Blood 130 mg/dL (75-99)
[2018-02-28] MEDS: CYCLOBENZAPRINE 10 MG TAB PO SCH (19:56)
[2018-02-28 20:23] LABS: Glucose,Whole Blood 142 mg/dL (75-99)
[2018-03-01] MEDS: HYDROcodone/APAP 5-325MG 1 EACH TAB PO PRN ×2 (04:30→22:27)
[2018-03-01 07:04] LABS: Glucose,Whole Blood 73 mg/dL (75-99)
[2018-03-01 07:22] LABS: Basophils % (A) 1 %; Eosinophils # (A) 0.1 k/uL (0-0.7); Eosinophils % (A) 5 %; HCT 29.6 % (34.0-46.0); HGB 9.3 gm/dL (11.4-16.0); Hypochromasia Slight; Lymphocytes # (A) 0.9 k/uL (1.0-4.8); Lymphocytes % (A) 30 %; MCH 31.6 pg (25.0-35.0); MCHC 31.3 g/dL (31.0-37.0); Macrocytosis Slight; Mean Platelet Volume 7.2; Monocytes # (A) 0.2 k/uL (0-1.0); Monocytes % (A) 5 %; Neutrophils # (A) 1.7 k/uL (1.3-7.7); Neutrophils % (A) 57 %; Platelet Count 241 k/uL (150-450); RBC 2.93 m/uL (3.80-5.40); RDW 13.3 % (11.5-15.5); WBC 2.9 k/uL (3.8-10.6)
[2018-03-01 07:31] LABS: Albumin 2.6 g/dL (3.5-5.0); Potassium 4.6 mmol/L (3.5-5.1); Total Bilirubin 0.4 mg/dL (0.2-1.3); Total Protein 4.8 g/dL (6.3-8.2)
[2018-03-01] MEDS: METOPROLOL TARTRATE 50 MG TAB PO SCH (09:40)
[2018-03-01] MEDS: PANTOPRAZOLE 40 MG TABLET PO SCH ×3 (09:45→20:43)
[2018-03-01] MEDS: DOCUSATE 100 MG CAP PO SCH ×2 (09:46→20:43)
[2018-03-01] MEDS: buPROPion SR 150 MG TABLET.ER PO SCH ×2 (09:46→20:43)
[2018-03-01] MEDS: ASPIRIN 81 MG PO SCH (09:46)
[2018-03-01] MEDS: LISINOPRIL 10 MG TAB PO SCH (09:47)
[2018-03-01] MEDS: PIOGLITAZONE 45 MG TAB PO SCH (09:47)
[2018-03-01] MEDS: SUCRALFATE 1 GM TAB PO SCH ×2 (09:48→20:43)
[2018-03-01 10:04] LABS: Glucose,Whole Blood 69 mg/dL (75-99)
[2018-03-01] MEDS ORDERED: DEXTROSE 50%-WATER 50 ML SYRINGE IVP STA ×2 (10:05→14:54)
[2018-03-01] MEDS ORDERED: DEXTROSE 50%-WATER 50 ML SYRINGE IVP ONE (10:07)
[2018-03-01 10:38] LABS: Glucose,Whole Blood 145 mg/dL (75-99)
[2018-03-01] MEDS: SODIUM CHLORIDE 0.9% 1,000 ML IV SCH (10:39)
[2018-03-01 11:58] LABS: Glucose,Whole Blood 110 mg/dL (75-99)
--- NOTE | 2018-03-01 12:06 | P.PN ---
Subjective Mrs. Calderón is seen and examined resting comfortably in bed. Past medical history significant for coronary artery disease with chronically total occlusion of RCA, diabetes mellitus, hypertension, dyslipidemia, gastroesophageal reflux disease and osteoarthritis. Echocardiogram obtained on admission reveals preserved left ventricular systolic function with ejection fraction 60-65%, moderately dilated left atrium, mild MR, mild TR and mild pulmonary hypertension with RVSP 41.81 mmHg noted. She is currently resting comfortably in bed awaiting surgery on the left ankle. Laboratory data reviewed , hemoglobin 9.3, platelets 241, sodium 141, potassium 4.6, creatinine 1.36. Blood pressure 97/58 heart rate 68 afebrile maintaining oxygen saturation on room air. Currently maintained on Lopressor 50 mg daily, lisinopril 10 mg daily and aspirin 81 mg daily. Objective - Vital Signs Vital signs: Vital Signs Temp 97.7 F 03/01/18 06:54 Pulse 60 03/01/18 06:54 Resp 16 03/01/18 06:54 BP 97/58 03/01/18 06:54 Pulse Ox 96 03/01/18 06:54 Intake & Output 02/28/18 03/01/18 03/01/18 18:59 06:59 18:59 Intake Total 300 1800 Balance 300 1800 Intake: Intake, IV Titration 1600 Amount Lactated Ringers 1,000 ml 1600 @ 100 mls/hr IV .Q10H [facility] Rx#:[id number] Oral 300 200 Other: # Voids 1 3 1 - Exam GENERAL: Well-appearing, well-nourished and in no acute distress. NECK: Supple without JVD or thyromegaly. LUNGS: Breath sounds clear to auscultation bilaterally. Respiration equal and unlabored. No wheezes, rales or rhonchi. HEART: Regular rate and rhythm without murmurs, rubs or gallops. S1 and S2 heard. EXTREMITIES: Normal range of motion, no edema. No clubbing or cyanosis. Peripheral pulses intact. Left lower extremity cast in place. - Labs CBC & Chem 7: 03/01/18 07:01 03/01/18 07:01 Labs: Abnormal Lab Results - Last 24 Hours (Table) 02/28/18 02/28/18 03/01/18 Range/Units 16:33 20:08 07:01 WBC (3.8-10.6) k/uL RBC (3.80-5.40) m/uL Hgb (11.4-16.0) gm/dL Hct (34.0-46.0) % MCV (80.0-100.0) fL Lymphocytes # (1.0-4.8) k/uL Chloride 110 H (98-107) mmol/L BUN 28 H (7-17) mg/dL Creatinine 1.36 H (0.52-1.04) mg/dL POC Glucose (mg/dL) 130 H 142 H (75-99) mg/dL Total Protein 4.8 L (6.3-8.2) g/dL Albumin 2.6 L (3.5-5.0) g/dL 03/01/18 03/01/18 03/01/18 Range/Units 07:01 07:02 09:44 WBC 2.9 L (3.8-10.6) k/uL RBC 2.93 L (3.80-5.40) m/uL Hgb 9.3 L (11.4-16.0) gm/dL Hct 29.6 L (34.0-46.0) % MCV 101.0 H (80.0-100.0) fL Lymphocytes # 0.9 L (1.0-4.8) k/uL Chloride (98-107) mmol/L BUN (7-17) mg/dL Creatinine (0.52-1.04) mg/dL POC Glucose (mg/dL) 73 L 69 L (75-99) mg/dL Total Protein (6.3-8.2) g/dL Albumin (3.5-5.0) g/dL 03/01/18 03/01/18 Range/Units 10:36 11:52 WBC (3.8-10.6) k/uL RBC (3.80-5.40) m/uL Hgb (11.4-16.0) gm/dL Hct (34.0-46.0) % MCV (80.0-100.0) fL Lymphocytes # (1.0-4.8) k/uL Chloride (98-107) mmol/L BUN (7-17) mg/dL Creatinine (0.52-1.04) mg/dL POC Glucose (mg/dL) 145 H 110 H (75-99) mg/dL Total Protein (6.3-8.2) g/dL Albumin (3.5-5.0) g/dL Microbiology - Last 24 Hours (Table) 02/26/18 23:10 Urine Culture - Final Urine,Clean Catch Assessment and Plan Assessment: ASSESSMENT Fall with by mail or lateral fracture and dislocation of the left ankle joint. History of chronic total occlusion of the RCA. Diabetes mellitus Hypertension Dyslipidemia Chronic kidney disease, stage IV PLAN Stable from a cardiac perspective. Continue current medical therapy. We will continue to follow as needed please free to call with further questions or concerns. Nurse Practitioner note has been reviewed, I agree with a documented findings and plan of care. Patient was seen and examined.
[2018-03-01] MEDS: FERROUS SULFATE 325 MG TAB PO SCH (13:19)
[2018-03-01] MEDS: MAGNESIUM OXIDE 400 MG TAB PO SCH (13:20)
[2018-03-01 14:49] LABS: Glucose,Whole Blood 70 mg/dL (75-99)
[2018-03-01] MEDS: DEXTROSE 5%-0.45% NACL 1,000 ML IV SCH (15:17)
--- NOTE | 2018-03-01 15:24 | P.PN ---
Subjective Progress Note Date: 03/01/18 Adriana Calderón is a 63 year old female patient of Dr. Snowden. Patient presented to the emergency department after falling down her stairs sustaining injury to her left ankle. Patient states that it was in the middle the night nurse to place something on the stairs that she was unaware of it she tripped and fell. Patient states she heard and felt a pop in her left ankle. Patient denies hitting her head. Patient denies any alcohol or drug associated with event. Patient was noted to have a bimalleolar fracture dislocation. Reduction in the emergency department along with splint being applied with molding to improve reduction to left ankle. Per ortho services surgery will likely be next week to allow swelling to resolve. Patient currently admitted for pain management. Patient has a known past medical history of diabetes mellitus, I disorder, GERD, hyperlipidemia, hypertension, osteoarthritis, renal disease stage IV and heart catheterization 1 year ago. At this time patient denies chest pain or shortness of breath. Pain meds per Ortho services. Patient denies nausea vomiting or diarrhea. Patient denies any urinary burning or frequency. Per ortho anticipate discharge home tomorrow. 02/22/2018 patient still reports pain left ankle. Awaiting final plans per orthopedic service. Unfortunately nursing staff just called me and reported that patient and is having difficulty swallowing her lunch she's also having coughing episodes with it. Patient will be made nothing by mouth speech therapy consulted and chest x-ray has been ordered. She had mildly elevated LFTs Lipitor has been discontinued. LFTs are trending down. Hemoglobin 10 patient denies any blood or black stools. Iron studies ordered. Denies any chest pain or shortness of breath. Denies any nausea or vomiting. Is reporting constipation been 2 days since last bowel movement stool softeners have been added. On 02/23/2018 patient still reporting pain in her left ankle. Per patient concerns for patient's ability to get around at home causing possible ECF placement. Social work has been consulted per nursing staff patient passed bedside swallow evaluation. At this time patient denies chest pain or shortness of breath. Denies any urinary burning or frequency. Denies any nausea vomiting or diarrhea. On 02/24/2018 patient was seen and examined on the surgical floor, she is alert and oriented 3 in no apparent distress, she is sitting comfortably in chair, she is complaining of pain in her left ankle, otherwise she denies any complaints, there is no fever or chills no headache or dizziness no chest pain no shortness of breath no cough no nausea or vomiting no abdominal pain no diarrhea and no urinary symptoms 02/25/2018 patient alert and oriented 3. currently resting comfortably in bed. Denies chest pain or shortness breath. Denies nausea vomiting or diarrhea. Denies any urinary burning or frequency On 02/26/2018 patient is alert and oriented 3. Currently sitting up in chair. Patient denies chest pain or shortness of breath. Denies nausea vomiting or diarrhea. Denies any urinary burning or frequency. Per or so surgical services planning on surgical intervention tomorrow. We'll consult cardiology for cardiac clearance due to cardiac history. On 02/27/2018 alert and oriented 3 resting in bed. Planning on closed reduction of left ankle today per ortho surgery. Requesting cardiology consult to be completed prior to surgical procedure. Second surgery planning for Sunday. At this time patient denies chest pain or shortness of breath. Patient denies nausea vomiting or diarrhea. Patient denies any urinary burning or urinary frequency On 02/28/2018 patient is alert and oriented 3 currently sitting up in chair. Patient underwent a closed reduction under anesthesia yesterday. At this time patient denies chest pain or shortness of breath. Denies nausea vomiting or diarrhea. Denies any urinary burning or frequency. Per ortho planning open reduction and fixation of the ankle tomorrow 03/01/2018. 03/01/2018 patient is scheduled for open reduction of the ankle today. Patient has been having episodes of hypoglycemia likely related to being nothing by mouth. She required dextrose this morning and another half amp of dextrose this afternoon for blood sugar of 70. Due to the surgery being pushed back to later in the day. We'll at change fluids to D5 half-normal saline at 100 mL an hour Objective - Vital Signs Vital signs: Vital Signs Temp 97.7 F 03/01/18 06:54 Pulse 60 03/01/18 06:54 Resp 16 03/01/18 06:54 BP 97/58 03/01/18 06:54 Pulse Ox 96 03/01/18 06:54 Intake & Output 02/28/18 03/01/18 03/01/18 18:59 06:59 18:59 Intake Total 300 1800 Balance 300 1800 Intake: Intake, IV Titration 1600 Amount Lactated Ringers 1,000 ml 1600 @ 100 mls/hr IV .Q10H [facility] Rx#:[id number] Oral 300 200 Other: # Voids 1 3 3 - Exam Head normocephalic Neck supple Lungs clear to auscultation bilaterally no wheezing or crackles Heart regular rate and rhythm S1-S2, no rub or gallop Abdomen is soft nontender nondistended positive bowel sounds no hepatosplenomegaly Extremities no edema left ankle is Tommie wrapped Neuro alert and orientated to 3 - Labs CBC & Chem 7: 03/01/18 07:01 03/01/18 07:01 Labs: Abnormal Lab Results - Last 24 Hours (Table) 02/28/18 02/28/18 03/01/18 Range/Units 16:33 20:08 07:01 WBC (3.8-10.6) k/uL RBC (3.80-5.40) m/uL Hgb (11.4-16.0) gm/dL Hct (34.0-46.0) % MCV (80.0-100.0) fL Lymphocytes # (1.0-4.8) k/uL Chloride 110 H (98-107) mmol/L BUN 28 H (7-17) mg/dL Creatinine 1.36 H (0.52-1.04) mg/dL POC Glucose (mg/dL) 130 H 142 H (75-99) mg/dL Total Protein 4.8 L (6.3-8.2) g/dL Albumin 2.6 L (3.5-5.0) g/dL 03/01/18 03/01/18 03/01/18 Range/Units 07:01 07:02 09:44 WBC 2.9 L (3.8-10.6) k/uL RBC 2.93 L (3.80-5.40) m/uL Hgb 9.3 L (11.4-16.0) gm/dL Hct 29.6 L (34.0-46.0) % MCV 101.0 H (80.0-100.0) fL Lymphocytes # 0.9 L (1.0-4.8) k/uL Chloride (98-107) mmol/L BUN (7-17) mg/dL Creatinine (0.52-1.04) mg/dL POC Glucose (mg/dL) 73 L 69 L (75-99) mg/dL Total Protein (6.3-8.2) g/dL Albumin (3.5-5.0) g/dL 03/01/18 03/01/18 03/01/18 Range/Units 10:36 11:52 14:47 WBC (3.8-10.6) k/uL RBC (3.80-5.40) m/uL Hgb (11.4-16.0) gm/dL Hct (34.0-46.0) % MCV (80.0-100.0) fL Lymphocytes # (1.0-4.8) k/uL Chloride (98-107) mmol/L BUN (7-17) mg/dL Creatinine (0.52-1.04) mg/dL POC Glucose (mg/dL) 145 H 110 H 70 L (75-99) mg/dL Total Protein (6.3-8.2) g/dL Albumin (3.5-5.0) g/dL Microbiology - Last 24 Hours (Table) 02/26/18 23:10 Urine Culture - Final Urine,Clean Catch Assessment and Plan Assessment: 1. Fall with bimalleolar lateral fracture and dislocation to the left ankle joint. Patient currently admitted for pain management. Patient is scheduled for open reduction of the right ankle this afternoon 2. Diabetes mellitus type 2. A1c 5.7. Discontinue the Actos. Patient is been having episodes of hypoglycemia due to her nothing by mouth status for surgery. She is required one and half amps of dextrose. We'll change fluids to D5 half normal saline at 100 mL an hour. Surgery for this afternoon. Continue Accu-Cheks before each meal and at bedtime after surgery. 3. History of chronic kidney disease stage IV. Patient states she follows outpatient with nephrology services. 4. History of GERD. Continue home medications 5. History of hyperlipidemia. 6. History of essential hypertension 7. History of cardiac catheterization in April 2017. 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 Circumflex appeared to be codominant medically managed. Patient states she follows outpatient with cardiology. Patient currently on aspirin 81 mg 8. Elevated LFTs: Discontinue Lipitor and fenofibrate. LFTs normalized 9. Iron deficiency anemia with a hemoglobin of 10. No signs of active bleeding. Check iron studies. MCV elevated of 101.8 also will check a B12 level. 10. Difficulty with swallowing and coughing episode during lunch. Chest x-ray completed showing left basal atelectasis or infiltrate correlate clinically. Per nursing staff patient passed bedside swallow. 11. Patient had low-grade temp 99.5. Urinalysis has been ordered. Patient denies any nausea vomiting or diarrhea. Patient denies any urinary burning upper respiratory symptoms. Patient has remained afebrile. Urinary analysis showing trace amount of leukocyte Estrace. Patient remains asymptomatic. Urine culture will be ordered 12. Hyperkalemia. potassium 5.7. Kayaxlate orderd. Repeat labs have been ordered. Repeat potassium level 4.7 DVT prophylaxis SQ Heparin I performed an examination of the patient and discussed their management with the physician Mri Special Procedures Technologist. I have reviewed the Physician Mri Special Procedures Technologist's notes and agree with the documented findings and plan of care
[2018-03-01 15:31] LABS: Glucose,Whole Blood 102 mg/dL (75-99)
[2018-03-01] MEDS ORDERED: IV FLUID CONTINUATION 1,000 ML IV ONE (15:52)
[2018-03-01 16:04] LABS: Glucose,Whole Blood 107 mg/dL (75-99)
[2018-03-01] MEDS: LACTATED RINGERS 1,000 ML IV SCH (16:40)
[2018-03-01] MEDS ORDERED: fentaNYL (PF) 50 MCG/ML 2 ML AMP ONE (17:06)
[2018-03-01] MEDS ORDERED: PROPOFOL 10 MG/ML 20 ML VIAL IV ONE (17:06)
[2018-03-01] MEDS ORDERED: MIDAZOLAM 2 MG/2 ML VIAL ONE (17:06)
[2018-03-01] MEDS ORDERED: ceFAZolin 1,000 MG VIAL IVPB ONE (17:25)
[2018-03-01] MEDS: INSULIN ASPART 100 UNIT/ML 1 ML 10 ML VIAL SQ SCH ×2 (18:26→20:42)
[2018-03-01] MEDS ORDERED: hydrOXYzine PAMOATE 25 MG CAP PO PRN (18:57)
[2018-03-01] MEDS ORDERED: WARFARIN 5 MG TAB PO ONE (19:00)
[2018-03-01] MEDS: HYDROmorphone 1 MG/ML 1 ML SYRINGE IVP ONE ×4 (19:03→19:31)
[2018-03-01] MEDS ORDERED: MEPERIDINE 50 MG/ML SYRINGE IVP ONE (19:40)
[2018-03-01 20:10] LABS: Glucose,Whole Blood 165 mg/dL (75-99)
[2018-03-01] MEDS: CYCLOBENZAPRINE 10 MG TAB PO SCH (20:43)
[2018-03-01] MEDS: HEPARIN SODIUM,PORCINE 5,000 UNIT/ML 1 ML VIAL SQ SCH (20:44)
[2018-03-01] MEDS: MORPHINE SULFATE 2 MG/ML SYRINGE IV PRN ×2 (21:28→23:30)
[2018-03-01] MEDS: hydrOXYzine PAMOATE 25 MG CAP PO PRN (22:28)
[2018-03-01] MEDS: ceFAZolin IN SWFI 2 GM/20 ML SYRINGE IVP SCH (23:12)
[2018-03-01] MEDS: TEMAZEPAM 15 MG CAP PO PRN ×2 (23:31→23:36)
[2018-03-02] MEDS: MORPHINE ORAL SOLN 10 MG/5 ML CUP PO PRN ×2 (01:29→04:37)
[2018-03-02] MEDS: DEXTROSE 5%-0.45% NACL 1,000 ML IV SCH (03:43)
[2018-03-02] MEDS: hydrOXYzine PAMOATE 25 MG CAP PO PRN (04:36)
[2018-03-02] MEDS: HYDROcodone/APAP 5-325MG 1 EACH TAB PO PRN ×3 (04:37→15:19)
--- NOTE | 2018-03-02 05:41 | FL ---
FLUOROSCOPY 35 seconds of fluoroscopy time were utilized during internal fixation of the left ankle. 3 images doc ument the procedure.
[2018-03-02 07:19] LABS: Glucose,Whole Blood 107 mg/dL (75-99)
[2018-03-02 08:04] VITALS: BP 128/78; PULSE 83; RESP 18; TEMP 97.8
[2018-03-02] MEDS: INSULIN ASPART 100 UNIT/ML 1 ML 10 ML VIAL SQ SCH ×2 (08:05→12:42)
[2018-03-02 08:25] LABS: INR 1.2 (<1.2); Prothrombin Time 11.2 sec (9.0-12.0)
[2018-03-02] MEDS: DOCUSATE 100 MG CAP PO SCH (08:32)
[2018-03-02] MEDS: HEPARIN SODIUM,PORCINE 5,000 UNIT/ML 1 ML VIAL SQ SCH (08:32)
[2018-03-02] MEDS: MORPHINE SULFATE 2 MG/ML SYRINGE IV PRN (08:33)
[2018-03-02] MEDS: buPROPion SR 150 MG TABLET.ER PO SCH (08:33)
[2018-03-02] MEDS: SUCRALFATE 1 GM TAB PO SCH (08:33)
[2018-03-02] MEDS: METOPROLOL TARTRATE 50 MG TAB PO SCH (08:33)
[2018-03-02] MEDS: LISINOPRIL 10 MG TAB PO SCH (08:33)
[2018-03-02] MEDS: ceFAZolin IN SWFI 2 GM/20 ML SYRINGE IVP SCH (08:34)
[2018-03-02] MEDS: ASPIRIN 81 MG PO SCH (08:44)
[2018-03-02 08:49] LABS: Basophils % (A) 1 %; Eosinophils # (A) 0.2 k/uL (0-0.7); Eosinophils % (A) 3 %; HCT 33.3 % (34.0-46.0); HGB 10.6 gm/dL (11.4-16.0); Lymphocytes # (A) 0.8 k/uL (1.0-4.8); Lymphocytes % (A) 12 %; MCH 32.2 pg (25.0-35.0); MCHC 31.7 g/dL (31.0-37.0); MCV 101.4 fL (80.0-100.0); Macrocytosis Slight; Mean Platelet Volume 7.4; Monocytes # (A) 0.4 k/uL (0-1.0); Monocytes % (A) 6 %; Neutrophils # (A) 4.9 k/uL (1.3-7.7); Neutrophils % (A) 78 %; Platelet Count 308 k/uL (150-450); RBC 3.28 m/uL (3.80-5.40); RDW 13.5 % (11.5-15.5); WBC 6.2 k/uL (3.8-10.6)
[2018-03-02] MEDS: SODIUM CHLORIDE 0.9% 1,000 ML IV SCH (10:18)
--- NOTE | 2018-03-02 10:31 | P.DS ---
Providers Date of admission: 02/27/18 14:45 Expected date of discharge: 03/02/18 Attending physician: Rinku Booth Consults: 02/21/18 09:47 Consult Physician Routine Consulting Provider: João Owens Consult Reason/Comments: medical management Do you want consulting provider notified?: Yes 02/26/18 10:46 Consult Physician Routine Consulting Provider: Edwin Sexton Consult Reason/Comments: surgical clearance Do you want consulting provider notified?: Yes Primary care physician: Karen Snowden - Discharge Diagnosis(es) (1) Ankle fracture, left Current Visit: Yes Status: Acute (2) Dislocation of ankle, left, closed Current Visit: Yes Status: Acute Hospital Course: This is a 63-year-old female who is admitted to [facility] on 02/20/2018 after falling and sustaining injury to her left ankle. She had a very unstable bimalleolar fracture dislocation of the left ankle. Close reduction was performed 2. The patient was taken to or on 02/27/2018 for skin check and re-splinting. At that time it was felt that her swelling was coming down. She was boarded for open reduction internal fixation of the left ankle. The patient was taken to surgery on 03/01/2018 for open reduction internal fixation of the left ankle. The procedures performed without complication or sequelae. The patient is doing well postoperatively. She rates her pain 9/10. However, she is sleeping soundly and resting comfortably. The patient is discharged to inpatient rehab on 03/02/2018. Please see med rec for accurate list of home medications. Patient Condition at Discharge: Fair Plan - Discharge Summary Discharge Rx Participant: Yes New Discharge Prescriptions: New HYDROcodone/APAP 5-325MG [Mcfaddin 5-325] 1 - 2 each PO Q4-6H PRN #50 tab PRN Reason: Pain Sennosides-Docusate Sodium [Senokot-S] 1 tab PO BID #60 tablet Warfarin [Coumadin] 2.5 mg PO DAILY #30 tab No Action Ferrous Sulfate [Iron (65 MG Elemental)] 325 mg PO BID Fenofibrate,Micronized [Fenofibrate] 200 mg PO DAILY Nitroglycerin 0.4 mg PO Q5M PRN PRN Reason: Chest Pain Cyclobenzaprine [Flexeril] 10 mg PO HS buPROPion HCL [Wellbutrin SR] 150 mg PO BID Sucralfate [Carafate] 1 gram PO BID Aspirin 81 mg PO DAILY chew Metoprolol Tartrate [Lopressor] 50 mg PO DAILY tab Magnesium Oxide [Batres] 1,000 mg PO DAILY Atorvastatin [Lipitor] 20 mg PO HS Pioglitazone HCl 45 mg PO DAILY Inulin/Chromium Picolinate [Fiber Gummies Chew] 1 tab PO DAILY Sertraline [Zoloft] 50 mg PO DAILY Nitroglycerin Sl Tabs [Nitrostat] 0.4 mg SUBLINGUAL Q5M PRN PRN Reason: Chest Pain Fiber Caps 1 cap PO DAILY Pantoprazole Sodium [Protonix] 40 mg PO DAILY Lisinopril [Zestril] 5 mg PO DAILY Discharge Medication List Fenofibrate,Micronized [Fenofibrate] 200 mg PO DAILY 05/02/17 [History] Ferrous Sulfate [Iron (65 MG Elemental)] 325 mg PO BID 05/02/17 [History] Cyclobenzaprine [Flexeril] 10 mg PO HS 05/10/17 [History] Nitroglycerin 0.4 mg PO Q5M PRN 05/10/17 [History] Sucralfate [Carafate] 1 gram PO BID 05/10/17 [History] buPROPion HCL [Wellbutrin SR] 150 mg PO BID 05/10/17 [History] Aspirin 81 mg PO DAILY chew 05/12/17 [Rx] Metoprolol Tartrate [Lopressor] 50 mg PO DAILY tab 05/12/17 [Rx] Atorvastatin [Lipitor] 20 mg PO HS 07/15/17 [History] Inulin/Chromium Picolinate [Fiber Gummies Chew] 1 tab PO DAILY 07/15/17 [History ] Magnesium Oxide [Batres] 1,000 mg PO DAILY 07/15/17 [History] Pioglitazone HCl 45 mg PO DAILY 07/15/17 [History] Fiber Caps 1 cap PO DAILY 02/21/18 [History] Lisinopril [Zestril] 5 mg PO DAILY 02/21/18 [History] Nitroglycerin Sl Tabs [Nitrostat] 0.4 mg SUBLINGUAL Q5M PRN 02/21/18 [History] Pantoprazole Sodium [Protonix] 40 mg PO DAILY 02/21/18 [History] Sertraline [Zoloft] 50 mg PO DAILY 02/21/18 [History] HYDROcodone/APAP 5-325MG [Mcfaddin 5-325] 1 - 2 each PO Q4-6H PRN #50 tab 02/22/18 [Rx] Sennosides-Docusate Sodium [Senokot-S] 1 tab PO BID #60 tablet 02/22/18 [Rx] Warfarin [Coumadin] 2.5 mg PO DAILY #30 tab 03/02/18 [Rx] Follow up Appointment(s)/Referral(s): Rinku Booth MD [STAFF PHYSICIAN] - 2 Weeks Karen Snowden DO [Primary Care Provider] - 1-2 days Ambulatory/Diagnostic Orders: Prothrombin Time INR [LAB.AMB] Location: None Selected Activity/Diet/Wound Care/Special Instructions: Strict NWB w natividad MEYER. Maintain splint. Discharge Disposition: TRANSFER TO SNF/ECF
[2018-03-02 12:38] LABS: Glucose,Whole Blood 97 mg/dL (75-99)
[2018-03-02] MEDS: FERROUS SULFATE 325 MG TAB PO SCH (12:46)
[2018-03-02] MEDS: MAGNESIUM OXIDE 400 MG TAB PO SCH (12:46)
[2018-03-02] MEDS ORDERED: WARFARIN 5 MG TAB PO ONE (18:00)
== END 2018-03-02 15:30 | DRG 563 ==
LOC: EC 04:10 → 3SUR 08:34 → OBSVTOIN 02-27 14:45
PROVIDERS: ADMIT Orthopaedic Surgery; ATTEND Orthopaedic Surgery
PROC: 0QSKXZZ Reposition Left Fibula, External Approach (ICD-10-PCS; 2018-02-27)
PROC: 2W3MX1Z Immobilization of Left Lower Extremity using Splint (ICD-10-PCS; 2018-02-27)
PROC: 0QSHXZZ Reposition Left Tibia, External Approach (ICD-10-PCS; principal; 2018-02-27 14:00)
DX: S82.842A Displaced bimalleolar fracture of left lower leg, initial encounter for closed fracture (principal); N18.4 Chronic kidney disease, stage 4 (severe); J98.11 Atelectasis; E11.22 Type 2 diabetes mellitus with diabetic chronic kidney disease; I25.82 Chronic total occlusion of coronary artery; R13.10 Dysphagia, unspecified; I12.9 Hypertensive chronic kidney disease with stage 1 through stage 4 chronic kidney disease, or unspecified chronic kidney disease; K59.00 Constipation, unspecified; D50.9 Iron deficiency anemia, unspecified; I25.10 Atherosclerotic heart disease of native coronary artery without angina pectoris; K21.9 Gastro-esophageal reflux disease without esophagitis; E78.5 Hyperlipidemia, unspecified; H54.61 Unqualified visual loss, right eye, normal vision left eye; E87.5 Hyperkalemia; I27.20 Pulmonary hypertension, unspecified; E66.9 Obesity, unspecified; Z68.32 Body mass index [BMI] 32.0-32.9, adult; M19.91 Primary osteoarthritis, unspecified site; Z79.82 Long term (current) use of aspirin; Z79.84 Long term (current) use of oral hypoglycemic drugs; Z79.899 Other long term (current) drug therapy; Q15.9 Congenital malformation of eye, unspecified; Z87.891 Personal history of nicotine dependence; Z90.49 Acquired absence of other specified parts of digestive tract; Z88.2 Allergy status to sulfonamides; W10.9XXA Fall (on) (from) unspecified stairs and steps, initial encounter; Z82.49 Family history of ischemic heart disease and other diseases of the circulatory system; Z80.3 Family history of malignant neoplasm of breast; Z82.3 Family history of stroke
CPT/HCPCS: 27810; 71046; 80053; 81001; 82607; 82728; 83036; 83540; 83550; 85025; 85610; 87086; 93005; 93306; 96374; 96376; 99152; 99284

== ENCOUNTER → 2018-05-09 | Outpatient (CLI) | payer BC ==
--- NOTE | 2018-05-09 10:54 | CT ---
EXAMINATION TYPE: CT chest w con DATE OF EXAM: 05/09/2018 COMPARISON: Chest radiograph dated 02/22/2018 HISTORY: Cough, left lung opacity CT DLP: 234.70 mGycm. Automated Exposure Control for Dose Reduction was Utilized. TECHNIQUE: CT scan of the thorax is performed following with IV Contrast, patient injected with 80 m L of Isovue 300. FINDINGS: LUNGS: The previously seen left basilar opacity on the chest are Dated 02/22/2018 relates to very minimal left basilar subsegmental atelectasis. Minimal right basilar subsegmental atelectasis is also seen in addition to prominent epicardial fat at the left anterior co stophrenic angle. A 5 mm nodular density on axial image 43 and coronal image 58 may represent rounded morphology of atelectasis or a true pulmonary nodule. No focal consolidation. There is no pleural ef fusion or pneumothorax seen. The tracheobronchial tree is patent. MEDIASTINUM: There are no greater than 1 cm hilar or mediastinal lymph nodes. Solitary prominent but nonenlarged pretracheal lymph node measures 9 mm in short axis The heart is enlarged. Trace pericardi al effusion is seen on the coronal images. Extensive three-vessel coronary artery calcifications are noted. Very small hiatal hernia seen in the posterior mediastinum. There is prominent size of the rig ht main pulmonary artery measuring 2.4 cm suggesting a component of pulmonary arterial hypertension a lthough the main pulmonary artery is nonenlarged. Ascending thoracic aorta is within normal limits me asuring 3.1 cm as is the aortic root measuring 3.2 cm. Descending thoracic aorta is nonenlarged. OTHER: Gallbladder surgically absent. 2.4 cm left lower pole renal cyst is present. Moderate amount r etained colonic stool is seen in the abdomen. Moderate atherosclerosis of the abdominal aorta and its branches is seen in the upper abdomen as well. There is osseous demineralization seen and moderate m ultilevel degenerative changes of the visualized thoracolumbar spine. IMPRESSION: 1. Left basilar opacity seen on the prior chest radiograph relates to left basilar atelectasis. A 5 m m rounded density in the left costophrenic angle could relate to a small pulmonary nodule or rounded morphology of subsegmental atelectasis. Follow up CT thorax in 12 months is recommended for nodules t his size. 2. Trace pericardial effusion and cardiomegaly with extensive three-vessel coronary artery calcificat ions.
== END ==
LOC: RADCTMAIN 07:58
PROVIDERS: ATTEND Family Medicine
DX: R91.8 Other nonspecific abnormal finding of lung field (principal)
CPT/HCPCS: 82565; 84520; 71260; 36415; Q9967

== ENCOUNTER → 2018-07-24 | Outpatient (CLI) | payer BC ==
[2018-07-24 12:17] LABS: Basophils % (A) 1 %; Eosinophils # (A) 0.1 k/uL (0-0.7); Eosinophils % (A) 3 %; HCT 43.2 % (34.0-46.0); HGB 13.1 gm/dL (11.4-16.0); Lymphocytes # (A) 0.9 k/uL (1.0-4.8); Lymphocytes % (A) 18 %; MCH 31.8 pg (25.0-35.0); MCHC 30.4 g/dL (31.0-37.0); MCV 104.5 fL (80.0-100.0); Macrocytosis Slight; Mean Platelet Volume 6.5; Monocytes # (A) 0.2 k/uL (0-1.0); Monocytes % (A) 4 %; Neutrophils # (A) 3.6 k/uL (1.3-7.7); Neutrophils % (A) 73 %; Platelet Count 236 k/uL (150-450); RBC 4.13 m/uL (3.80-5.40); RDW 13.5 % (11.5-15.5); WBC 4.9 k/uL (3.8-10.6)
[2018-07-24 12:55] LABS: Appearance,Urine Cloudy (Clear); Bilirubin,Urine Negative (Negative); Blood,Urine Negative (Negative); Color,Urine Yellow; Glucose,Urine (UA) Negative (Negative); Hyaline Casts,Urine 6 /lpf (0-2); Ketones,Urine Negative (Negative); Leukocyte Esterase,Urine Large (Negative); Mucus,Urine Rare /hpf; Nitrite,Urine Negative (Negative); PH, Urine 5.5 (5.0-8.0); Protein,Urine Trace (Negative); RBC,Urine 4 /hpf (0-5); Squamous Epithelial Cell,Urine 6 /hpf (0-4); Urobilinogen,Urine <2.0 mg/dL (<2.0); WBC,Urine >182 /hpf (0-5)
[2018-07-24 16:00] LABS: Iron Saturation 19.46 (12.00-45.00); Parathyroid Hormone Intact 73.1 pg/mL (14.0-72.0)
[2018-07-24 16:01] LABS: Calcium 9.6 mg/dL (8.7-10.3); Magnesium 1.7 mg/dL (1.5-2.4); Potassium 4.5 mmol/L (3.5-5.5)
[2018-07-24 16:09] LABS: Vitamin D 25 Hydroxy 32.6 ng/mL (30.0-100.0)
== END ==
LOC: LABWHC1 11:26
PROVIDERS: ATTEND Nurse Practitioner Family
DX: E55.9 Vitamin D deficiency, unspecified (principal); E21.3 Hyperparathyroidism, unspecified; N39.0 Urinary tract infection, site not specified; N18.3 Chronic kidney disease, stage 3 (moderate); D50.9 Iron deficiency anemia, unspecified
CPT/HCPCS: 36415; 80048; 81001; 82306; 82728; 83540; 83550; 83735; 83970; 85025

== ENCOUNTER → 2019-01-21 | Outpatient (CLI) | payer BC ==
[2019-01-21 10:56] LABS: HCT 40.9 % (34.0-46.0); HGB 12.9 gm/dL (11.4-16.0); MCH 33.1 pg (25.0-35.0); MCHC 31.5 g/dL (31.0-37.0); MCV 105.2 fL (80.0-100.0); Macrocytosis Slight; Mean Platelet Volume 7.3; Platelet Count 225 k/uL (150-450); RBC 3.89 m/uL (3.80-5.40); RDW 13.2 % (11.5-15.5); WBC 3.6 k/uL (3.8-10.6)
[2019-01-21 19:41] LABS: African American GFR (CKD) 56.1 (60.0-200.0); Anion Gap 9.8 mmol/L (4.00-12.00); BUN/Creat Ratio 31.67 Ratio (12.00-20.00); Calcium 9.4 mg/dL (8.7-10.3); Carbon Dioxide 25.2 mmol/L (21.6-31.8); LDL Cholesterol,Calculated 73.8 mg/dL (0.0-131.0); Magnesium 1.7 mg/dL (1.5-2.4); Potassium 4.9 mmol/L (3.5-5.5); VLDL Calculation 44.2 mg/dL (5.00-40.00)
== END | disposition home or self-care (01) ==
LOC: LABWHC1 09:54
PROVIDERS: ATTEND Nurse Practitioner
DX: I10 Essential (primary) hypertension (principal); E03.9 Hypothyroidism, unspecified
CPT/HCPCS: 36415; 80048; 80061; 83735; 84439; 84443; 85027

== ENCOUNTER → 2019-01-28 | Outpatient (CLI) | payer BC ==
[2019-01-28 12:24] LABS: Appearance,Urine Clear (Clear); Basophils % (A) 1 %; Bilirubin,Urine Negative (Negative); Blood,Urine Negative (Negative); Color,Urine Yellow; Eosinophils # (A) 0.2 k/uL (0-0.7); Eosinophils % (A) 4 %; Glucose,Urine (UA) Negative (Negative); HCT 40.2 % (34.0-46.0); HGB 13.1 gm/dL (11.4-16.0); Ketones,Urine Negative (Negative); Leukocyte Esterase,Urine Negative (Negative); Lymphocytes # (A) 1.3 k/uL (1.0-4.8); Lymphocytes % (A) 32 %; MCH 33.2 pg (25.0-35.0); MCHC 32.5 g/dL (31.0-37.0); MCV 101.9 fL (80.0-100.0); Macrocytosis Slight; Monocytes # (A) 0.2 k/uL (0-1.0); Monocytes % (A) 6 %; Neutrophils # (A) 2.2 k/uL (1.3-7.7); Neutrophils % (A) 55 %; Nitrite,Urine Negative (Negative); Platelet Count 235 k/uL (150-450); Protein,Urine Negative (Negative); RBC 3.94 m/uL (3.80-5.40); RDW 12.5 % (11.5-15.5); Specific Gravity,Urine 1.019 (1.001-1.035); Urobilinogen,Urine <2.0 mg/dL (<2.0)
[2019-01-28 19:01] LABS: Total Protein,Urine Random 11.5 mg/dL (0.0-13.5)
[2019-01-28 19:17] LABS: Iron Saturation 23.14 (12.00-45.00)
[2019-01-28 19:24] LABS: Vitamin D 25 Hydroxy 35.8 ng/mL (30.0-100.0)
[2019-01-28 19:29] LABS: African American GFR (CKD) 50.9 (60.0-200.0); Albumin 4.2 g/dL (3.80-4.90); Anion Gap 6.5 mmol/L (4.00-12.00); BUN/Creat Ratio 28.46 Ratio (12.00-20.00); Calcium 9.7 mg/dL (8.7-10.3); Carbon Dioxide 28.5 mmol/L (21.6-31.8); Magnesium 1.8 mg/dL (1.5-2.4); Potassium 5.5 mmol/L (3.5-5.5); Uric Acid 7.3 mg/dL (2.9-7.7)
== END | disposition home or self-care (01) ==
LOC: LABWHC1 11:35
PROVIDERS: ATTEND Internal Medicine Nephrology
DX: N18.4 Chronic kidney disease, stage 4 (severe) (principal); N39.0 Urinary tract infection, site not specified; M10.9 Gout, unspecified; N25.81 Secondary hyperparathyroidism of renal origin; D55.9 Anemia due to enzyme disorder, unspecified
CPT/HCPCS: 36415; 80048; 81003; 82040; 82306; 82570; 82728; 83540; 83550; 83735; 83970; 84100; 84156; 84550; 85025

== ENCOUNTER 2019-02-11 06:45 | Inpatient (IN) | payer BC ==
--- NOTE | 2019-02-11 07:09 | ED ---
Abdominal Pain HPI - General Chief Complaint: Abdominal Pain Stated Complaint: LRQ Pain Time Seen by Provider: 02/11/19 07:02 Source: patient Mode of arrival: wheelchair Limitations: no limitations - History of Present Illness Initial Comments: 64-year-old female with history of PUD, diabetes, hyperlipidemia, hypertension, renal disease, CAD presented today for chief complaint of right upper quadrant abdominal pain 2 hours. Patient states she has had pain in her right percent of her abdomen that increases with lying flat or movement the past 2 hours. Patient states she has experienced the same pain on and off for the past week, but no consistently. Patient denies any chest pain or shortness of breath she does not noticed a pattern with inspiration. Patient states this a sharp pain that radiates towards her back. Patient states she has had a previous cholecystectomy. Patient denies fevers. Denies any specific bowel movement changes with her last being 2 hours prior. Patient states last meal was approximately 7 hours prior, pasta salad. Patient denies vomiting, but states she is nauseated, denies lower abdominal pain. Patient states she had a chronic cough for "years", no changes, no upper respiratory symptoms, denies NSAID use, denies ETOH abuse. Patient appears well upon arrival but is grabbing her RUQ. Upon arrival patient is afebrile, does not appears jaundice and remaining VS within acceptable limits. - Related Data Home Medications Medication Instructions Recorded Confirmed Sucralfate [Carafate] 1 gram PO ACHS 05/10/17 02/11/19 Atorvastatin [Lipitor] 20 mg PO HS 07/15/17 02/11/19 Nitroglycerin Sl Tabs [Nitrostat] 0.4 mg SUBLINGUAL Q5M PRN 02/21/18 02/11/19 Calcium Vit D Gummies 1 tab PO DAILY 02/11/19 02/11/19 Docusate [Colace] 100 mg PO BID 02/11/19 02/11/19 Losartan Potassium 100 mg PO DAILY 02/11/19 02/11/19 Magnesium 400 mg PO DAILY 02/11/19 02/11/19 Montelukast [Singulair] 10 mg PO W/SUPPER 02/11/19 02/11/19 Multivitamin Gummies 1 tab PO DAILY 02/11/19 02/11/19 Pioglitazone [Actos] 30 mg PO DAILY 02/11/19 02/11/19 Probiotic Gummies 1 tab PO DAILY 02/11/19 02/11/19 Vitamin C Gummies 1 tab PO DAILY 02/11/19 02/11/19 traZODone HCL 50 mg PO HS 02/11/19 02/11/19 Previous Rx's Medication Instructions Recorded Aspirin 81 mg PO DAILY chew 05/12/17 Allergies Allergy/AdvReac Type Severity Reaction Status Date / Time sulfamethoxazole Allergy Unknown Verified 02/11/19 07:12 [From Bactrim] trimethoprim [From Bactrim] Allergy Unknown Verified 02/11/19 07:12 Review of Systems ROS Statement: Those systems with pertinent positive or pertinent negative responses have been documented in the HPI. ROS Other: All systems not noted in ROS Statement are negative. 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, History of Any Multi-Drug Resistant Organisms: None Reported Past Surgical History: Cholecystectomy, Heart Catheterization, Orthopedic Surgery Additional Past Surgical History / Comment(s): 04/2017 EGD/colonoscopy, past EGD/colonoscopy, "left shoulder surgery for a tendon." Past Anesthesia/Blood Transfusion Reactions: No Reported Reaction Past Psychological History: No Psychological Hx Reported, Anxiety, Depression Smoking Status: Former smoker Past Alcohol Use History: Occasional Past Drug Use History: None Reported - Past Family History Mother Family Medical History: Cancer Additional Family Medical History / Comment(s): breast cancer, pacemaker. Father Family Medical History: CVA/TIA, Myocardial Infarction (HI) Additional Family Medical History / Comment(s): Pt does not know at what age father had HI Brother(s) Family Medical History: Congestive Heart Failure (CHF) Additional Family Medical History / Comment(s): CABG General Exam - General Exam Comments Initial Comments: General: The patient is awake and alert, in no distress Eye: +3 mm pupils are equal, round and reactive to light, extra-ocular movements are intact. No nystagmus. There is normal conjunctiva bilaterally. No signs of icterus. Ears, nose, mouth and throat: There are moist mucous membranes and no oral lesions. Neck: The neck is supple, there is no tenderness or JVD. Cardiovascular: There is a regular rate and rhythm. No murmur, rub or gallop is appreciated. Respiratory: Lungs are clear to auscultation, respirations are non-labored, breath sounds are equal. No wheezes, stridor, rales, or rhonchi. Gastrointestinal: Soft, non-distended, rided tenderness to palpation of the abdomen, mostly RUQ, the abdomen without masses or organomegaly noted. No pain at McBurneys point. There is no rebound or guarding present. Musculoskeletal: Normal ROM, no tenderness. Strength 5/5. Sensation intact. Radial pulses equal bilaterally 2+. Neurological: A&O x 3. CN II-XII intact, There are no obvious motor or sensory deficits. Coordination appears grossly intact. Speech is normal. Skin: Skin is warm and dry and no rashes or lesions are noted. Psychiatric: Cooperative, appropriate mood & affect, normal judgment. Limitations: no limitations Course Vital Signs 02/11/19 06:52 Temperature 97.5 F L Pulse Rate 87 Respiratory 17 Rate Blood Pressure 133/86 O2 Sat by Pulse 100 Oximetry Medical Decision Making - Medical Decision Making 64-year-old febrile presents for abdominal pain. Patient has reproducible right-sided abdominal pain mostly right upper quadrant. Patient previous cholecystectomy however with patient's given symptoms was concern for possible pancreatitis. Lipase within normal limits. Patient does have history of peptic ulcer disease which was on differential diagnosis. Because the patient's history of previous surgeries wanted her no obstructive process. Patient states she did have a slightly loose bowel movement this morning she denies being armand diarrhea. Imaging studies reveal possible partial obstruction. Patient does have diffuse right-sided tenderness. This could possibly correlate clinically. Otherwise after studies are stable patient denies any chest pain or shortness of breath. She appears nontoxic. She decision-making was made patient is concerned because her symptoms are persistent and pain is not controlled that she will have to return to emergency department within a few hours. I had patient evaluated from attending provider Dr. Lim, at this time he felt acceptable to admit patient for general surgery evaluation. Dr. Lim spoke with Dr. Rangel who recommended NG tube, abx and admission. - Lab Data Result diagrams: 02/11/19 07:35 02/11/19 07:35 Lab Results 02/11/19 02/11/19 02/11/19 Range/Units 07:35 07:35 07:35 WBC 4.3 (3.8-10.6) k/uL RBC 3.96 (3.80-5.40) m/uL Hgb 12.7 (11.4-16.0) gm/dL Hct 39.9 (34.0-46.0) % MCV 100.7 H (80.0-100.0) fL MCH 32.0 (25.0-35.0) pg MCHC 31.8 (31.0-37.0) g/dL RDW 12.4 (11.5-15.5) % Plt Count 199 (150-450) k/uL Neutrophils % 71 % Lymphocytes % 20 % Monocytes % 5 % Eosinophils % 3 % Basophils % 1 % Neutrophils # 3.0 (1.3-7.7) k/uL Lymphocytes # 0.9 L (1.0-4.8) k/uL Monocytes # 0.2 (0-1.0) k/uL Eosinophils # 0.1 (0-0.7) k/uL Basophils # 0.0 (0-0.2) k/uL Sodium 141 (137-145) mmol/L Potassium 4.7 (3.5-5.1) mmol/L Chloride 107 (98-107) mmol/L Carbon Dioxide 25 (22-30) mmol/L Anion Gap 9 mmol/L BUN 42 H (7-17) mg/dL Creatinine 1.24 H (0.52-1.04) mg/dL Est GFR (CKD-EPI)AfAm 53 (>60 ml/min/1.73 sqM) Est GFR (CKD-EPI)NonAf 46 (>60 ml/min/1.73 sqM) Glucose 118 H (74-99) mg/dL Calcium 9.7 (8.4-10.2) mg/dL Total Bilirubin 0.5 (0.2-1.3) mg/dL AST 22 (14-36) U/L ALT 24 (9-52) U/L Alkaline Phosphatase 83 (38-126) U/L Total Protein 6.5 (6.3-8.2) g/dL Albumin 4.0 (3.5-5.0) g/dL Amylase 72 (30-110) U/L Lipase 243 (23-300) U/L Urine Color Yellow Urine Appearance Clear (Clear) Urine pH 6.0 (5.0-8.0) Ur Specific [place] 1.014 (1.001-1.035) Urine Protein Negative (Negative) Urine Glucose (UA) Negative (Negative) Urine Ketones Negative (Negative) Urine Blood Negative (Negative) Urine Nitrite Negative (Negative) Urine Bilirubin Negative (Negative) Urine Urobilinogen <2.0 (<2.0) mg/dL Ur Leukocyte Esterase Negative (Negative) Disposition Clinical Impression: Partial intestinal obstruction, Nausea, Abdominal pain Disposition: ADMITTED IP TO THIS [facility] Condition: Stable Is patient prescribed a controlled substance at d/c from ED?: No Referrals: Karen Snowden DO [Primary Care Provider] - 1-2 days Time of Disposition: 10:22 Decision to Admit Reason: Admit from EC Decision Date: 02/11/19 Decision Time: 10:23
[2019-02-11] MEDS ORDERED: ONDANSETRON 4 MG/2 ML VIAL IVP STA (07:15)
[2019-02-11] MEDS ORDERED: MORPHINE SULFATE 2 MG/ML SYRINGE IVP STA (07:15)
[2019-02-11] MEDS ORDERED: MAG HYDROX/AL HYDROX/SIMETH 30 ML, HYOSCYAMINE ELIXIR 10 ML, CIMETIDINE HCL 300 MG, LID... PO STA ×4 (07:26)
[2019-02-11] MEDS ORDERED: SODIUM CHLORIDE 0.9% 1,000 ML IV ONE ×2 (07:27→14:35)
[2019-02-11 07:54] LABS: Basophils % (A) 1 %; Eosinophils # (A) 0.1 k/uL (0-0.7); Eosinophils % (A) 3 %; HCT 39.9 % (34.0-46.0); HGB 12.7 gm/dL (11.4-16.0); Lymphocytes # (A) 0.9 k/uL (1.0-4.8); Lymphocytes % (A) 20 %; MCHC 31.8 g/dL (31.0-37.0); MCV 100.7 fL (80.0-100.0); Mean Platelet Volume 7.3; Monocytes # (A) 0.2 k/uL (0-1.0); Monocytes % (A) 5 %; Neutrophils % (A) 71 %; Platelet Count 199 k/uL (150-450); RBC 3.96 m/uL (3.80-5.40); RDW 12.4 % (11.5-15.5); WBC 4.3 k/uL (3.8-10.6)
[2019-02-11 08:02] LABS: Appearance,Urine Clear (Clear); Bilirubin,Urine Negative (Negative); Blood,Urine Negative (Negative); Color,Urine Yellow; Glucose,Urine (UA) Negative (Negative); Ketones,Urine Negative (Negative); Leukocyte Esterase,Urine Negative (Negative); Nitrite,Urine Negative (Negative); Protein,Urine Negative (Negative); Specific Gravity,Urine 1.014 (1.001-1.035); Urobilinogen,Urine <2.0 mg/dL (<2.0)
[2019-02-11 08:06] LABS: Calcium 9.7 mg/dL (8.4-10.2); Potassium 4.7 mmol/L (3.5-5.1); Total Bilirubin 0.5 mg/dL (0.2-1.3); Total Protein 6.5 g/dL (6.3-8.2)
--- NOTE | 2019-02-11 08:29 | US ---
EXAMINATION TYPE: US abdomen limited DATE OF EXAM: 02/11/2019 COMPARISON: NONE CLINICAL HISTORY: prev marci (RUQ/epigastric pain). ABD pain, N&V, post marci 20 yrs ago EXAM MEASUREMENTS: Liver Length: 15.8 cm CBD: 0.7 cm Right Kidney: 9.9 x 4.1 x 4.7 cm Pt very gassy Pancreas: wnl, tail obscured by overlying bowel gas Liver: wnl Gallbladder: Surgically absent Evidence for sonographic Bardales's sign: No CBD: wnl for post marci Right Kidney: wnl, possible cyst lower pole= 0.5 cm in exophytic location There is no ascites. IMPRESSION: Somewhat limited exam. Dilated common bile duct likely due to postcholecystectomy change.
--- NOTE | 2019-02-11 08:39 | XR ---
EXAMINATION TYPE: XR chest 2V DATE OF EXAM: 02/11/2019 COMPARISON: Prior chest x-ray 02/22/2018, chest CT 05/09/2018 HISTORY: Pain, left upper quadrant pain and nausea TECHNIQUE: Frontal and lateral views of the chest are obtained. FINDINGS: The patient is rotated. Surgical clips are present in the right upper quadrant. There is no focal air space opacity, pleural effusion, or pneumothorax seen. The cardiac silhouette size is wit hin normal limits, patient is rotated which may change the appearance, cardiomegaly noted on previous exams. The osseous structures are intact. IMPRESSION: No acute cardiopulmonary process. Additional findings above. Postop changes.
--- NOTE | 2019-02-11 09:43 | CT ---
EXAMINATION TYPE: CT abdomen pelvis w con DATE OF EXAM: 02/11/2019 COMPARISON: 04/07/2017 HISTORY: 64-year-old female RLQ pain TECHNIQUE: Contiguous axial scanning of the abdomen and pelvis following administration of 100 ml Iso tara 300 IV contrast. Delayed images through the kidneys and coronal/sagittal reconstructions perform ed. CT DLP: 930.4 mGycm Automated exposure control for dose reduction was used. FINDINGS: Heart upper limits of normal in size. A couple 4 mm 5 mm pulmonary nodules of peripheral left base ar e unchanged from 2017 suggesting a benign etiology. Strandy atelectasis or scarring is noted. Motion artifacts degrade the exam. No focal liver lesions seen. Portal venous system is patent. Mild intrahepatic and extra hepatic bili lukasz ductal dilatation with the bile duct measuring up to 8 mm likely a on the basis of postcholecyste ctomy status. Adrenal glands, right kidney, and atrophic pancreas show no gross adenopathy. Calcified granulomas wi thin the. 2.7 cm cortical cyst left kidney. Prominent fluid-filled small bowel loops are present throughout the abdomen without abnormal dilatati on or discrete transition point. The cecum is high riding and the hepatic flexure region of the colon is very tortuous and redundant w ith unusual elongated segment of relative capillary burden narrowing and torqued appearance, refer to coronal images 33 through 42. The hepatic flexure now extends high up anterior to the liver. No abno rmal wall thickening or pneumatosis is seen. However, the ascending colon is mildly dilated at 7.6 cm. No mesenteric or retroperitoneal lymphadenopathy seen. No abnormally dilated, fluid-filled appendix is identified. Bladder partially urine distended. Small uterus is visualized. Left ovary is visualized. No abnormal fluid collection in the pelvis or pelvic free fluid. No free air is seen. Bones: Mild degenerative changes at the hips. Degenerative disc disease lumbar spine. IMPRESSION: 1. MULTIPLE PROMINENT FLUID-FILLED SMALL BOWEL LOOPS THROUGHOUT THE ABDOMEN. CORRELATE FOR POSSIBLE E NTERITIS. 2. IN ADDITION, THE CECUM IS HIGH RIDING, THE ASCENDING COLON IS MILDLY DILATED AT 7.6 CM, AND THERE IS LONG SEGMENT CALIBER NARROWING AT THE HEPATIC FLEXURE WITH TORQUED APPEARANCE TO THE COLON HERE. R EFER TO CORONAL IMAGES 33 THROUGH 42. EARLY/PARTIAL COLONIC OBSTRUCTION SECONDARY TO ADHESIONS OR INT ERNAL HERNIA DIFFICULT TO EXCLUDE AT THIS TIME. FOLLOW-UP MAY BE HELPFUL.
[2019-02-11] MEDS ORDERED: PIPERACILLIN-TAZOBACTAM 3.375 GM in SODIUM CHLORIDE 0.9% 100 ML IVPB STA (10:28)
[2019-02-11] MEDS ORDERED: NALOXONE 0.4 MG/ML 1 ML VIAL IV PRN (10:30)
[2019-02-11] MEDS: MORPHINE SULFATE 4 MG/ML SYRINGE IVP PRN ×2 (11:12→22:01)
--- NOTE | 2019-02-11 11:23 | XR ---
EXAMINATION TYPE: XR chest 1V DATE OF EXAM: 02/11/2019 COMPARISON: Prior chest x-ray same dated earlier time HISTORY: NG tube placement TECHNIQUE: Single frontal view of the chest is obtained. FINDINGS: NG tube has been placed in the interval. Distal tip of the catheter is within the left upp er quadrant. Surgical clips present in the right upper quadrant. No other significant interval change . IMPRESSION: No evident complication status post NG tube placement
--- NOTE | 2019-02-11 11:24 | XR ---
Abdomen HISTORY: NG tube placement View of the abdomen submitted. NG tube shows the distal tip of the left upper quadrant, side-port is at the level of the gastroesoph ageal junction. Surgical clips are present right upper quadrant. There are air-filled loops of small bowel. No pneumoperitoneum. IMPRESSION: Side-port of the NG tube is overlying the region of gastroesophageal junction.
[2019-02-11 12:27] LABS: Glucose,Whole Blood 100 mg/dL (75-99)
--- NOTE | 2019-02-11 14:46 | P.GSHP ---
<Raegan Rosario A - Last Filed: 02/11/19 14:40> History of Present Illness H&P Date: 02/11/19 Chief Complaint: abdominal pain CHIEF COMPLAINT: abdominal pain HISTORY OF PRESENT ILLNESS: 64 year old female who presented to the ER with a chief complaint of abdominal pain. Patient reports generalized abdominal pain that started this morning. She denies having this pain previously. Reports nausea but denies vomiting. She reports abdominal pain is crampy in nature and feels bloated. NG tube was placed in the ER with minimal amount of dark red output. patient has history of EGD and colonoscopy performed [place] [address] Rangel revealing mild chronic gastritis and mild chronic esophagitis. PAST MEDICAL HISTORY: See list. PAST SURGICAL HISTORY: See list. SOCIAL HISTORY: No illicit drug use. REVIEW OF SYSTEMS: CONSTITUTIONAL: Denies fever or chills. HEENT: Denies blurred vision, vision changes, or eye pain. Denies hemoptysis CARDIOVASCULAR: Denies chest pain or pressure. RESPIRATORY: No shortness of breath. GASTROINTESTINAL: Refer to HPI for pertinent findings HEMATOLOGIC: Denies bleeding disorders. GENITOURINARY: Denies any blood in urine. SKIN: Denies pruitis. Denies rash. PHYSICAL EXAM: VITAL SIGNS: Reviewed. GENERAL: Well-developed in no acute distress. HEENT: NG to LIS. No sclera icterus. Extraocular movements grossly intact. Moist buccal mucosa. Head is atraumatic, normocephalic. ABDOMEN: Soft. Distended. Tenderness with palpation. Positive bowel sounds. NEUROLOGIC: Alert and oriented. Cranial nerves II through XII grossly intact. LABORATORY DATA: WBC 4.3. Hemoglobin 12.7. Platelet count 199. Potassium 4.7. BUN 42. Creatinine 1.24. IMAGIN. Abdominal ultrasound: somewhat limited exam. Dilated common bile duct likely due to postcholecystectomy changes. 2. CT abdomen and pelvis: multiple prominent fluid-filled small bowel loops throughout the abdomen. Correlate for possible enteritis. In addition the cecum his high rising, the ascending colon is mildly dilated at 7.6 cm and there is a long segment caliber narrowing at the hepatic flexure with torqued appearance to the colon. Partial colonic obstruction secondary to adhesions or internal hernia difficult to exclude. ASSESSMENT: 1. Partial colonic obstruction, CT reveals high rising cecum, dilated ascending colon, and narrowing at hepatic flexure with torqued appearance of the colon PLAN: 1. NPO 2. Continue NG tube. Bloody output may be secondary to trauma from insertion. However, will begin Protonix 40mg IV BID and repeat hemoglobin in AM 3. Continue IV fluids at 100cc/hr. 1 L fluid bolus now. 4. Patient is tentatively scheduled for right colectomy tomorrow with Dr. Rangel. Patient will be reevaluated tomorrow morning. 5. Consult Dr. Lewis for medical management Nurse practitioner note has been reviewed by physician. Signing provider agrees with the documented findings, assessment, and plan of care. 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 History of Any Multi-Drug Resistant Organisms: None Reported Past Surgical History: Cholecystectomy, Heart Catheterization, Orthopedic Surgery Additional Past Surgical History / Comment(s): 04/2017 EGD/colonoscopy, past EGD/colonoscopy, L shoulder tendon surgery, L ankle closed reduction x2 and then ORIF, cardiac caths x2. Past Anesthesia/Blood Transfusion Reactions: No Reported Reaction Smoking Status: Former smoker - Past Family History Mother Family Medical History: Cancer, CVA/TIA Additional Family Medical History / Comment(s): Mother of a CVA. She also had breast cancer and a pacemaker. Father Family Medical History: CVA/TIA, Myocardial Infarction ([place]) Additional Family Medical History / Comment(s): Father had a GA at about age 80yrs. He is living. Brother(s) Family Medical History: Congestive Heart Failure (CHF) Additional Family Medical History / Comment(s): CABG Medications and Allergies Home Medications Medication Instructions Recorded Confirmed Type Sucralfate [Carafate] 1 gram PO ACHS 05/10/17 02/11/19 History Aspirin 81 mg PO DAILY chew 05/12/17 02/11/19 Rx Atorvastatin [Lipitor] 20 mg PO HS 07/15/17 02/11/19 History Nitroglycerin Sl Tabs [Nitrostat] 0.4 mg SUBLINGUAL Q5M PRN 02/21/18 02/11/19 History Calcium Vit D Gummies 1 tab PO DAILY 02/11/19 02/11/19 History Docusate [Colace] 100 mg PO BID 02/11/19 02/11/19 History Losartan Potassium 100 mg PO DAILY 02/11/19 02/11/19 History Magnesium 400 mg PO DAILY 02/11/19 02/11/19 History Montelukast [Singulair] 10 mg PO W/SUPPER 02/11/19 02/11/19 History Multivitamin Gummies 1 tab PO DAILY 02/11/19 02/11/19 History Pioglitazone [Actos] 30 mg PO DAILY 02/11/19 02/11/19 History Probiotic Gummies 1 tab PO DAILY 02/11/19 02/11/19 History Vitamin C Gummies 1 tab PO DAILY 02/11/19 02/11/19 History traZODone HCL 50 mg PO HS 02/11/19 02/11/19 History Allergies Allergy/AdvReac Type Severity Reaction Status Date / Time sulfamethoxazole Allergy Unknown Verified 02/11/19 07:12 [From Bactrim] trimethoprim [From Bactrim] Allergy Unknown Verified 02/11/19 07:12 Surgical - Exam Vital Signs Temp Pulse Resp BP Pulse Ox 97.5 F L 87 17 133/86 100 02/11/19 06:52 02/11/19 06:52 02/11/19 06:52 02/11/19 06:52 02/11/19 06:52 Results - Labs 02/11/19 07:35 02/11/19 07:35 Abnormal Lab Results - Last 24 Hours (Table) 02/11/19 02/11/19 02/11/19 Range/Units 07:35 07:35 12:15 MCV 100.7 H (80.0-100.0) fL Lymphocytes # 0.9 L (1.0-4.8) k/uL BUN 42 H (7-17) mg/dL Creatinine 1.24 H (0.52-1.04) mg/dL Glucose 118 H (74-99) mg/dL POC Glucose (mg/dL) 100 H (75-99) mg/dL Diabetes panel 02/11/19 Range/Units 07:35 Sodium 141 (137-145) mmol/L Potassium 4.7 (3.5-5.1) mmol/L Chloride 107 (98-107) mmol/L Carbon Dioxide 25 (22-30) mmol/L BUN 42 H (7-17) mg/dL Creatinine 1.24 H (0.52-1.04) mg/dL Glucose 118 H (74-99) mg/dL Calcium 9.7 (8.4-10.2) mg/dL AST 22 (14-36) U/L ALT 24 (9-52) U/L Alkaline Phosphatase 83 (38-126) U/L Total Protein 6.5 (6.3-8.2) g/dL Albumin 4.0 (3.5-5.0) g/dL Calcium panel 02/11/19 Range/Units 07:35 Calcium 9.7 (8.4-10.2) mg/dL Albumin 4.0 (3.5-5.0) g/dL Pituitary panel 02/11/19 Range/Units 07:35 Sodium 141 (137-145) mmol/L Potassium 4.7 (3.5-5.1) mmol/L Chloride 107 (98-107) mmol/L Carbon Dioxide 25 (22-30) mmol/L BUN 42 H (7-17) mg/dL Creatinine 1.24 H (0.52-1.04) mg/dL Glucose 118 H (74-99) mg/dL Calcium 9.7 (8.4-10.2) mg/dL Adrenal panel 02/11/19 Range/Units 07:35 Sodium 141 (137-145) mmol/L Potassium 4.7 (3.5-5.1) mmol/L Chloride 107 (98-107) mmol/L Carbon Dioxide 25 (22-30) mmol/L BUN 42 H (7-17) mg/dL Creatinine 1.24 H (0.52-1.04) mg/dL Glucose 118 H (74-99) mg/dL Calcium 9.7 (8.4-10.2) mg/dL Total Bilirubin 0.5 (0.2-1.3) mg/dL AST 22 (14-36) U/L ALT 24 (9-52) U/L Alkaline Phosphatase 83 (38-126) U/L Total Protein 6.5 (6.3-8.2) g/dL Albumin 4.0 (3.5-5.0) g/dL <Reji Rangel - Last Filed: 02/12/19 15:06> Surgical - Exam Vital Signs Temp Pulse Resp BP Pulse Ox 97.5 F L 87 17 133/86 100 02/11/19 06:52 02/11/19 06:52 02/11/19 06:52 02/11/19 06:52 02/11/19 06:52 Results - Labs 02/12/19 06:51 02/12/19 06:51 Abnormal Lab Results - Last 24 Hours (Table) 02/12/19 02/12/19 02/12/19 Range/Units 03:20 05:51 06:51 WBC 3.4 L (3.8-10.6) k/uL RBC 3.54 L (3.80-5.40) m/uL Hgb 11.3 L (11.4-16.0) gm/dL MCV 103.9 H (80.0-100.0) fL MCHC 30.8 L (31.0-37.0) g/dL Lymphocytes # 0.7 L (1.0-4.8) k/uL Chloride (98-107) mmol/L BUN (7-17) mg/dL Creatinine (0.52-1.04) mg/dL Glucose (74-99) mg/dL POC Glucose (mg/dL) 71 L 72 L (75-99) mg/dL Total Protein (6.3-8.2) g/dL Albumin (3.5-5.0) g/dL 02/12/19 02/12/19 02/12/19 Range/Units 06:51 12:05 13:22 WBC (3.8-10.6) k/uL RBC (3.80-5.40) m/uL Hgb (11.4-16.0) gm/dL MCV (80.0-100.0) fL MCHC (31.0-37.0) g/dL Lymphocytes # (1.0-4.8) k/uL Chloride 112 H (98-107) mmol/L BUN 24 H (7-17) mg/dL Creatinine 1.12 H (0.52-1.04) mg/dL Glucose 71 L (74-99) mg/dL POC Glucose (mg/dL) 63 L 116 H (75-99) mg/dL Total Protein 5.3 L (6.3-8.2) g/dL Albumin 3.2 L (3.5-5.0) g/dL 02/12/19 Range/Units 14:07 WBC (3.8-10.6) k/uL RBC (3.80-5.40) m/uL Hgb (11.4-16.0) gm/dL MCV (80.0-100.0) fL MCHC (31.0-37.0) g/dL Lymphocytes # (1.0-4.8) k/uL Chloride (98-107) mmol/L BUN (7-17) mg/dL Creatinine (0.52-1.04) mg/dL Glucose (74-99) mg/dL POC Glucose (mg/dL) 106 H (75-99) mg/dL Total Protein (6.3-8.2) g/dL Albumin (3.5-5.0) g/dL Diabetes panel 02/12/19 Range/Units 06:51 Sodium 143 (137-145) mmol/L Potassium 4.6 (3.5-5.1) mmol/L Chloride 112 H (98-107) mmol/L Carbon Dioxide 24 (22-30) mmol/L BUN 24 H (7-17) mg/dL Creatinine 1.12 H (0.52-1.04) mg/dL Glucose 71 L (74-99) mg/dL Calcium 8.9 (8.4-10.2) mg/dL AST 22 (14-36) U/L ALT 22 (9-52) U/L Alkaline Phosphatase 57 (38-126) U/L Total Protein 5.3 L (6.3-8.2) g/dL Albumin 3.2 L (3.5-5.0) g/dL Calcium panel 02/12/19 Range/Units 06:51 Calcium 8.9 (8.4-10.2) mg/dL Albumin 3.2 L (3.5-5.0) g/dL Pituitary panel 02/12/19 Range/Units 06:51 Sodium 143 (137-145) mmol/L Potassium 4.6 (3.5-5.1) mmol/L Chloride 112 H (98-107) mmol/L Carbon Dioxide 24 (22-30) mmol/L BUN 24 H (7-17) mg/dL Creatinine 1.12 H (0.52-1.04) mg/dL Glucose 71 L (74-99) mg/dL Calcium 8.9 (8.4-10.2) mg/dL Adrenal panel 02/12/19 Range/Units 06:51 Sodium 143 (137-145) mmol/L Potassium 4.6 (3.5-5.1) mmol/L Chloride 112 H (98-107) mmol/L Carbon Dioxide 24 (22-30) mmol/L BUN 24 H (7-17) mg/dL Creatinine 1.12 H (0.52-1.04) mg/dL Glucose 71 L (74-99) mg/dL Calcium 8.9 (8.4-10.2) mg/dL Total Bilirubin 0.4 (0.2-1.3) mg/dL AST 22 (14-36) U/L ALT 22 (9-52) U/L Alkaline Phosphatase 57 (38-126) U/L Total Protein 5.3 L (6.3-8.2) g/dL Albumin 3.2 L (3.5-5.0) g/dL Assessment and Plan Assessment: Right colon with obstruction. Patient will be observed and undergo right colectomy in the a.m.
[2019-02-11] MEDS ORDERED: NITROGLYCERIN SL TABS 0.4 MG TAB SUBLINGUAL PRN (16:08)
[2019-02-11 17:35] LABS: Glucose,Whole Blood 78 mg/dL (75-99)
[2019-02-11] MEDS: INSULIN ASPART (NovoLOG) 100 UNIT/ML VIAL SQ SCH ×2 (17:46→21:45)
[2019-02-11] MEDS: SODIUM CHLORIDE 0.9% 1,000 ML IV SCH ×2 (21:47→22:05)
[2019-02-11] MEDS: PANTOPRAZOLE 40 MG/10 ML VIAL IVP SCH (21:52)
[2019-02-11 21:55] LABS: Glucose,Whole Blood 77 mg/dL (75-99)
[2019-02-11 23:53] LABS: Glucose,Whole Blood 84 mg/dL (75-99)
[2019-02-12] MEDS: SODIUM CHLORIDE 0.9% 1,000 ML IV SCH ×4 (01:09→17:51)
[2019-02-12 03:31] LABS: Glucose,Whole Blood 71 mg/dL (75-99)
[2019-02-12 06:04] LABS: Glucose,Whole Blood 72 mg/dL (75-99)
[2019-02-12 07:16] LABS: Basophils % (A) 1 %; Eosinophils # (A) 0.1 k/uL (0-0.7); Eosinophils % (A) 2 %; HCT 36.8 % (34.0-46.0); HGB 11.3 gm/dL (11.4-16.0); Hypochromasia Slight; Lymphocytes # (A) 0.7 k/uL (1.0-4.8); Lymphocytes % (A) 21 %; MCHC 30.8 g/dL (31.0-37.0); MCV 103.9 fL (80.0-100.0); Macrocytosis Slight; Mean Platelet Volume 6.7; Monocytes # (A) 0.2 k/uL (0-1.0); Monocytes % (A) 4 %; Neutrophils # (A) 2.4 k/uL (1.3-7.7); Neutrophils % (A) 70 %; Platelet Count 170 k/uL (150-450); RBC 3.54 m/uL (3.80-5.40); RDW 12.7 % (11.5-15.5); WBC 3.4 k/uL (3.8-10.6)
[2019-02-12 07:32] LABS: Albumin 3.2 g/dL (3.5-5.0); Calcium 8.9 mg/dL (8.4-10.2); Potassium 4.6 mmol/L (3.5-5.1); Total Bilirubin 0.4 mg/dL (0.2-1.3); Total Protein 5.3 g/dL (6.3-8.2)
[2019-02-12] MEDS: PANTOPRAZOLE 40 MG/10 ML VIAL IVP SCH ×2 (07:59→21:03)
[2019-02-12] MEDS: INSULIN ASPART (NovoLOG) 100 UNIT/ML VIAL SQ SCH ×4 (07:59→21:03)
[2019-02-12] MEDS: MORPHINE SULFATE 4 MG/ML SYRINGE IVP PRN (07:59)
[2019-02-12 12:17] LABS: Glucose,Whole Blood 63 mg/dL (75-99)
[2019-02-12] MEDS ORDERED: DEXTROSE 50% SYRINGE 50 ML IVP STA (12:24)
[2019-02-12] MEDS ORDERED: DEXTROSE 10 % IN WATER 250 ML IV STA (12:27)
[2019-02-12 13:34] LABS: Glucose,Whole Blood 116 mg/dL (75-99)
[2019-02-12] MEDS ORDERED: IV FLUID CONTINUATION 1,000 ML IV ONE (13:56)
[2019-02-12 14:06] VITALS: BMI 34.0
[2019-02-12 14:10] LABS: Glucose,Whole Blood 106 mg/dL (75-99)
[2019-02-12] MEDS ORDERED: MIDAZOLAM (PF) 2 MG/2 ML VIAL IVP ONE (14:40)
[2019-02-12] MEDS ORDERED: ONDANSETRON 4 MG/2 ML VIAL IVP ONE (14:47)
[2019-02-12] MEDS ORDERED: metroNIDAZOLE-NS PMX 500 MG in SALINE 1 100ML.BAG IVPB STA (15:04)
--- NOTE | 2019-02-12 15:05 | P.PN ---
Progress Note - Text Progress Note Date: 02/12/19 The patient's CAT scan was reviewed. There is a significant narrowing with possible stricture and volvulus of the right colon near the hepatic flexure. Patient will undergo right colectomy today.
[2019-02-12] MEDS ORDERED: fentaNYL (PF) 50 MCG/ML 2 ML AMP ONE (15:29)
[2019-02-12] MEDS ORDERED: SUCCINYLCHOLINE CHLORIDE 100 MG/5 ML SYR IV ONE (15:29)
[2019-02-12] MEDS ORDERED: NEOSTIGMINE 1 MG/ML 10 ML VIAL ONE (15:29)
[2019-02-12] MEDS ORDERED: MIDAZOLAM 2 MG/2 ML VIAL ONE (15:29)
[2019-02-12] MEDS ORDERED: GLYCOPYRROLATE 0.2 MG/ML 2 ML VIAL ONE (15:29)
[2019-02-12] MEDS ORDERED: LIDOCAINE 1% INJ 10MG/ML (20 ML MDV) ONE (15:29)
[2019-02-12] MEDS ORDERED: PROPOFOL 10 MG/ML 20 ML VIAL IV ONE (15:29)
[2019-02-12] MEDS ORDERED: KETAMINE 10 MG/ML 20 ML VIAL ONE (15:29)
[2019-02-12] MEDS ORDERED: HYDROmorphone (PF) 1 MG/ML ONE (15:29)
[2019-02-12] MEDS ORDERED: ROCURONIUM BROMIDE 10 MG/ML 10 ML VIAL IV ONE (15:29)
[2019-02-12] MEDS ORDERED: NALOXONE 0.4 MG/ML 1 ML VIAL IV PRN (16:16)
--- NOTE | 2019-02-12 16:35 | P.OP ---
Date of Procedure: 02/12/19 Preoperative Diagnosis: Colonic obstruction Postoperative Diagnosis: Colonic obstruction secondary to right colon volvulus Procedure(s) Performed: Right colectomy Anesthesia: WILLY Surgeon: Reji Rangel Estimated Blood Loss (ml): 25 Pathology: other (Right colon) Condition: stable Disposition: PACU Description of Procedure: The patient's placed on the operating table in the supine position. She received general anesthesia. Her abdomen was prepped and draped in usual steril e fashion. The abdomen was entered through a midline incision. On entering the abdomen was a very redundant colon seen. The [place] tract with wound. The colon was examined. There appeared to be a volvulus of the right colon. The right colon was very floppy and had a long mesentery. The colon was untwisted and then it was decided to perform a right colectomy. The terminal ileum was transected with a GI stapler then using the Enseal device the mesentery the right colon and transverse colon was divided. Then using the linear stapler the transverse colon was divided. A [id number] functional end-to-end staple anastomosis was created between the terminal ileum and the distal transverse colon. The abdomen was irrigated there is no bleeding seen. The fascia was closed with looped #1 PDS suture. Skin was closed mohit. Patient top she will was sent to recovery room in stable condition.
[2019-02-12] MEDS: ROPIVACAINE 250 MG, HYDROMORPHONE (PF) 5 MG in SODIUM CHLORIDE 0.9% 200 ML EPIDURAL PRN ×2 (16:54→17:51)
[2019-02-12 17:16] LABS: Glucose,Whole Blood 74 mg/dL (75-99)
[2019-02-12] MEDS: D5-0.45% NACL WITH KCL 20MEQ/L 1,000 ML IV SCH (18:18)
[2019-02-12 20:54] LABS: Glucose,Whole Blood 132 mg/dL (75-99)
[2019-02-12] MEDS: ALVIMOPAN 12 MG CAPSULE PO SCH (21:06)
--- NOTE | 2019-02-12 21:23 | P.CONS ---
History of Present Illness - Reason for Consult Consult date: 02/12/19 Requesting physician: Reji Rangel - Chief Complaint abdominal pain - History of Present Illness Adriana Calderón is a 64 yo F with PMH significant for CAD, T2DM, insomnia who presented to [facility] ED with a 2 week history of progressive abdominal pain. She first noticed this when it woke her out of sleep and since then she has had generalized pain every day. Characterizes as dull ache and bloating. Pain significantly worsened the day of admission so pt came to the hospital. She does complain of nausea and reduced appetite as well. No vomiting, fevers or chills. She did have EGD and colonoscopy in 2017 which showed mild gastritis and esophagitis. No sick contacts. In the ED vitals stable, labs significant for elevated creatinine, CT abd/pelvis shows high riding cecum with dilated ascending colon and concern for volvulus at hepatic flexure. Pt reports cholecystectomy in the past. Review of Systems All systems: negative Constitutional: Reports malaise, Denies chills, Denies fever Eyes: denies blurred vision, denies pain Ears, nose, mouth and throat: Denies headache, Denies sore throat Cardiovascular: Denies chest pain, Denies shortness of breath Respiratory: Denies cough Gastrointestinal: Reports abdominal pain, Reports bloating, Reports early satiety, Reports nausea, Denies constipation, Denies diarrhea, Denies vomiting Genitourinary: Denies dysuria, Denies hematuria Musculoskeletal: Denies myalgias Integumentary: Denies pruritus, Denies rash Neurological: Denies numbness, Denies weakness Psychiatric: Denies anxiety, Denies depression Endocrine: Denies fatigue, Denies weight change Past Medical History Past Medical History: Coronary Artery Disease (CAD), Diabetes Mellitus, Eye Disorder, GERD/Reflux, Hyperlipidemia, Hypertension, Memory Impairment, Osteoarthritis (OA), Renal Disease, Vascular Disorder Additional Past Medical History / Comment(s): PUD, hiatal hernia, NIDDM type II, neuropathy occasionally in bilateral legs, chronic kidney disease stage IV, CAD- pt born with coronary blockages, PVD, R eye congenital defect with little visi on, chronic cough, occasional low back pain, gait unsteady at times, some short term memory problems, current irritation/rash bilateral legs-PCP recently scraped and results not available as yet. History of Any Multi-Drug Resistant Organisms: None Reported Past Surgical History: Cholecystectomy, Heart Catheterization, Orthopedic Surgery Additional Past Surgical History / Comment(s): 04/2017 EGD/colonoscopy, past EGD/colonoscopy, L shoulder tendon surgery, L ankle closed reduction x2 and then ORIF, cardiac caths x2. Past Anesthesia/Blood Transfusion Reactions: No Reported Reaction Smoking Status: Former smoker - Past Family History Mother Family Medical History: Cancer, CVA/TIA Additional Family Medical History / Comment(s): Mother of a CVA. She also had breast cancer and a pacemaker. Father Family Medical History: CVA/TIA, Myocardial Infarction (MT) Additional Family Medical History / Comment(s): Father had a [place] at about age 80yrs. He is living. Brother(s) Family Medical History: Congestive Heart Failure (CHF) Additional Family Medical History / Comment(s): CABG Medications and Allergies Home Medications Medication Instructions Recorded Confirmed Type Sucralfate [Carafate] 1 gram PO ACHS 05/10/17 02/11/19 History Aspirin 81 mg PO DAILY chew 05/12/17 02/11/19 Rx Atorvastatin [Lipitor] 20 mg PO HS 07/15/17 02/11/19 History Nitroglycerin Sl Tabs [Nitrostat] 0.4 mg SUBLINGUAL Q5M PRN 02/21/18 02/11/19 History Calcium Vit D Gummies 1 tab PO DAILY 02/11/19 02/11/19 History Docusate [Colace] 100 mg PO BID 02/11/19 02/11/19 History Losartan Potassium 100 mg PO DAILY 02/11/19 02/11/19 History Magnesium 400 mg PO DAILY 02/11/19 02/11/19 History Montelukast [Singulair] 10 mg PO W/SUPPER 02/11/19 02/11/19 History Multivitamin Gummies 1 tab PO DAILY 02/11/19 02/11/19 History Pioglitazone [Actos] 30 mg PO DAILY 02/11/19 02/11/19 History Probiotic Gummies 1 tab PO DAILY 02/11/19 02/11/19 History Vitamin C Gummies 1 tab PO DAILY 02/11/19 02/11/19 History traZODone HCL 50 mg PO HS 02/11/19 02/11/19 History Allergies Allergy/AdvReac Type Severity Reaction Status Date / Time sulfamethoxazole Allergy Unknown Verified 02/11/19 07:12 [From Bactrim] trimethoprim [From Bactrim] Allergy Unknown Verified 02/11/19 07:12 Physical Exam Vitals: Vital Signs Temp Pulse Resp BP BP Pulse Ox 02/12/19 14:51 71 16 181/75 92 L 02/12/19 13:57 97.7 F 89 16 146/66 98 02/12/19 08:00 16 02/12/19 07:00 97.4 F L 74 16 122/71 95 02/12/19 00:19 97.8 F 71 14 102/53 92 L 02/11/19 19:09 97.4 F L 69 15 127/70 98 02/11/19 16:00 89 16 Intake and Output 02/12/19 02/12/19 02/12/19 06:59 14:59 22:59 Other: # Voids 1 Weight 81.647 kg General: well nourished, well developed, NAD. Vitals reviewed Eyes: PERRL, EOMI, conjunctiva normal HENT: normocephalic, mucus membranes moist Neck: supple, no JVD Lungs: normal respiratory effort, no wheezes or rales CV: Regular rate and rhythm, no murmur. Peripheral pulses 2+ Abdomen: soft, nondistended, no organomegaly. Generalized TTP Lymph: no cervical or axillary LAD Skin: warm and dry. Neuro: A&Ox3, normal mood and affect Results CBC & Chem 7: 02/12/19 06:51 02/12/19 06:51 Labs: Abnormal Lab Results - Last 24 Hours (Table) 02/12/19 02/12/19 02/12/19 Range/Units 03:20 05:51 06:51 WBC 3.4 L (3.8-10.6) k/uL RBC 3.54 L (3.80-5.40) m/uL Hgb 11.3 L (11.4-16.0) gm/dL MCV 103.9 H (80.0-100.0) fL MCHC 30.8 L (31.0-37.0) g/dL Lymphocytes # 0.7 L (1.0-4.8) k/uL Chloride (98-107) mmol/L BUN (7-17) mg/dL Creatinine (0.52-1.04) mg/dL Glucose (74-99) mg/dL POC Glucose (mg/dL) 71 L 72 L (75-99) mg/dL Total Protein (6.3-8.2) g/dL Albumin (3.5-5.0) g/dL 02/12/19 02/12/19 02/12/19 Range/Units 06:51 12:05 13:22 WBC (3.8-10.6) k/uL RBC (3.80-5.40) m/uL Hgb (11.4-16.0) gm/dL MCV (80.0-100.0) fL MCHC (31.0-37.0) g/dL Lymphocytes # (1.0-4.8) k/uL Chloride 112 H (98-107) mmol/L BUN 24 H (7-17) mg/dL Creatinine 1.12 H (0.52-1.04) mg/dL Glucose 71 L (74-99) mg/dL POC Glucose (mg/dL) 63 L 116 H (75-99) mg/dL Total Protein 5.3 L (6.3-8.2) g/dL Albumin 3.2 L (3.5-5.0) g/dL 02/12/19 Range/Units 14:07 WBC (3.8-10.6) k/uL RBC (3.80-5.40) m/uL Hgb (11.4-16.0) gm/dL MCV (80.0-100.0) fL MCHC (31.0-37.0) g/dL Lymphocytes # (1.0-4.8) k/uL Chloride (98-107) mmol/L BUN (7-17) mg/dL Creatinine (0.52-1.04) mg/dL Glucose (74-99) mg/dL POC Glucose (mg/dL) 106 H (75-99) mg/dL Total Protein (6.3-8.2) g/dL Albumin (3.5-5.0) g/dL Assessment and Plan (1) Partial intestinal obstruction Current Visit: Yes Status: Acute Code(s): K56.600 - PARTIAL INTESTINAL OBSTRUCTION, UNSPECIFIED TO CAUSE SNOMED Code(s): 45983281 (2) Coronary artery disease Current Visit: Yes Status: Acute Code(s): I25.10 - ATHSCL HEART DISEASE OF [place] CORONARY ARTERY W/O ANG PCTRS SNOMED Code(s): 68899213 (3) Type 2 diabetes mellitus Current Visit: Yes Status: Acute Code(s): E11.9 - TYPE 2 DIABETES MELLITUS WITHOUT COMPLICATIONS SNOMED Code(s): 04591632 (4) Volvulus of large intestine Current Visit: Yes Status: Acute Code(s): K56.2 - VOLVULUS SNOMED Code(s): 888871840 (5) Abdominal pain Current Visit: Yes Status: Acute Code(s): R10.9 - UNSPECIFIED ABDOMINAL PAIN SNOMED Code(s): 65793225 Plan: 1. Abdominal pain. Suspected colonic volvulus/partial obstruction. NPO. NGT. Management per surgery, planning R hemicolectomy. Agree with zosyn 2. CAD. hold ASA and statin 3. T2DM. Hold insulin while NPO DVT prophylaxis heparin GI prophylaxis protonix
[2019-02-13] MEDS: HEPARIN SODIUM,PORCINE 5,000 UNIT/ML 1 ML VIAL SQ SCH ×4 (00:08→23:15)
[2019-02-13] MEDS: D5-0.45% NACL WITH KCL 20MEQ/L 1,000 ML IV SCH ×3 (02:26→17:26)
[2019-02-13 07:40] LABS: Glucose,Whole Blood 157 mg/dL (75-99)
--- NOTE | 2019-02-13 08:05 | P.PN ---
Progress Note - Text 02/13 750am 64-year-old female status post right colectomy by Dr. Rangel. Patient has an epidural catheter for postop pain control with the solution running at 8 mL an hour. She was complaining of dizziness the nurse turned, her the rate down to a 6 mL an hour, her blood pressure is normal at this time. She has a VAS score of 0 with no motor or sensory deficit plan to continue epidural infusion
--- NOTE | 2019-02-13 08:12 | P.PN ---
Progress Note - Text 02/13 740am 64-year-old female status post right colectomy by Dr. Rangel. Patient has an epidural catheter for postop pain control the solution running at 6 mL an hour, she has a VAS of 2. No motor or sensory deficits noted plan to continue epidural infusion
[2019-02-13] MEDS: SODIUM CHLORIDE 0.9% 1,000 ML IV SCH ×2 (08:48→17:27)
[2019-02-13] MEDS: PANTOPRAZOLE 40 MG/10 ML VIAL IVP SCH ×2 (08:48→21:08)
[2019-02-13] MEDS: INSULIN ASPART (NovoLOG) 100 UNIT/ML VIAL SQ SCH ×4 (08:49→21:08)
[2019-02-13] MEDS: ALVIMOPAN 12 MG CAPSULE PO SCH ×2 (08:49→21:08)
[2019-02-13] MEDS: ONDANSETRON 4 MG/2 ML VIAL IVP PRN ×2 (09:41→17:27)
[2019-02-13] MEDS: METOCLOPRAMIDE 5 MG/ML 2 ML VIAL IVP PRN ×2 (09:41→17:27)
[2019-02-13 11:19] LABS: Glucose,Whole Blood 191 mg/dL (75-99)
[2019-02-13 11:39] LABS: Calcium 8.7 mg/dL (8.4-10.2); Potassium 5.1 mmol/L (3.5-5.1)
[2019-02-13 11:56] LABS: Basophils % (A) 0 %; Eosinophils % (A) 0 %; HCT 35.5 % (34.0-46.0); HGB 11.2 gm/dL (11.4-16.0); Hypochromasia Slight; Lymphocytes # (A) 0.4 k/uL (1.0-4.8); Lymphocytes % (A) 6 %; MCH 33.1 pg (25.0-35.0); MCHC 31.6 g/dL (31.0-37.0); MCV 104.9 fL (80.0-100.0); Macrocytosis Slight; Mean Platelet Volume 7.1; Monocytes # (A) 0.3 k/uL (0-1.0); Monocytes % (A) 5 %; Neutrophils # (A) 5.5 k/uL (1.3-7.7); Neutrophils % (A) 88 %; Platelet Count 162 k/uL (150-450); RBC 3.38 m/uL (3.80-5.40); RDW 12.4 % (11.5-15.5); WBC 6.2 k/uL (3.8-10.6)
--- NOTE | 2019-02-13 13:27 | P.PN ---
Subjective Progress Note Date: 02/13/19 CHIEF COMPLAINT: abdominal pain HISTORY OF PRESENT ILLNESS: Patient is status post right colectomy secondary to colonic obstruction due to right colon volvulus. POD #1. Patient examined this more at the bedside. She reports her pain is tolerable. Epidural is infusing. Perez with clear yellow urine. She reports eating clear liquid breakfast tray. Shortly afterwards, patient began feeling nauseous, belching, and having dry heaves. WBC 6.2. Hemoglobin 11.2. Vital signs stable. PHYSICAL EXAM: VITAL SIGNS: Reviewed. GENERAL: Well-developed in no acute distress. HEENT: No sclera icterus. Extraocular movements grossly intact. Moist buccal mucosa. Head is atraumatic, normocephalic. ABDOMEN: Soft. Nondistended. Appropriate surgical tenderness. Dressing to midline noted. Abdominal binder present. NEUROLOGIC: Alert and oriented. Cranial nerves II through XII grossly intact. ASSESSMENT: 1. Colonic obstruction secondary to right colon volvulus, status post right colectomy PLAN: 1. Downgrade diet to NPO except ice chips and popsicles until nausea improves 2. Continue Zofran and Reglan PRN 3. Continue epidural catheter. Remove POD #3 4. Continue perez while epidural in place 5. Continue IV fluids 6. Activity as tolerated. Patient encouraged to be OOB and ambulatory today 7. Incentive spirometer 10 times an hour while awake Nurse practitioner note has been reviewed by physician. Signing provider agrees with the documented findings, assessment, and plan of care. Objective - Vital Signs Vital signs: Vital Signs Temp 97.8 F 02/13/19 08:16 Pulse 80 02/13/19 08:16 Resp 16 02/13/19 08:16 BP 110/67 02/13/19 08:16 Pulse Ox 99 02/13/19 08:16 Intake & Output 02/12/19 02/13/19 02/13/19 18:59 06:59 18:59 Intake Total 1264 Output Total 325 400 Balance 939 -400 Weight 81.647 kg Intake: IV 1264 Output: Urine 300 400 Estimated Blood Loss 25 Other: Voiding Method Indwelling Catheter Indwelling Catheter # Voids 1 - Labs CBC & Chem 7: 02/13/19 10:42 02/13/19 10:42 Labs: Abnormal Lab Results - Last 24 Hours (Table) 02/12/19 02/12/1902/12/19 Range/Units 13:22 14:07 17:11 RBC (3.80-5.40) m/uL Hgb (11.4-16.0) gm/dL MCV (80.0-100.0) fL Lymphocytes # (1.0-4.8) k/uL Chloride (98-107) mmol/L Glucose (74-99) mg/dL POC Glucose (mg/dL) 116 H 106 H 74 L (75-99) mg/dL 02/12/19 02/13/19 02/13/19 Range/Units 20:42 07:27 10:42 RBC 3.38 L (3.80-5.40) m/uL Hgb 11.2 L (11.4-16.0) gm/dL MCV 104.9 H (80.0-100.0) fL Lymphocytes # 0.4 L (1.0-4.8) k/uL Chloride (98-107) mmol/L Glucose (74-99) mg/dL POC Glucose (mg/dL) 132 H 157 H (75-99) mg/dL 02/13/19 02/13/19 Range/Units 10:42 11:05 RBC (3.80-5.40) m/uL Hgb (11.4-16.0) gm/dL MCV (80.0-100.0) fL Lymphocytes # (1.0-4.8) k/uL Chloride 108 H (98-107) mmol/L Glucose 201 H (74-99) mg/dL POC Glucose (mg/dL) 191 H (75-99) mg/dL
[2019-02-13 17:01] LABS: Glucose,Whole Blood 203 mg/dL (75-99)
[2019-02-13] MEDS: ROPIVACAINE 250 MG, HYDROMORPHONE (PF) 5 MG in SODIUM CHLORIDE 0.9% 200 ML EPIDURAL PRN (18:22)
[2019-02-13 21:04] LABS: Glucose,Whole Blood 181 mg/dL (75-99)
--- NOTE | 2019-02-13 21:50 | P.PN ---
Subjective Progress Note Date: 02/13/19 Adriana Calderón is a 64 yo F with PMH significant for CAD, T2DM, insomnia who presented to [facility] ED with a 2 week history of progressive abdominal pain. She first noticed this when it woke her out of sleep and since then she has had generalized pain every day. Characterizes as dull ache and bloating. Pain significantly worsened the day of admission so pt came to the hospital. She does complain of nausea and reduced appetite as well. No vomiting, fevers or chills. She did have EGD and colonoscopy in 2017 which showed mild gastritis and esophagitis. No sick contacts. In the ED vitals stable, labs significant for elevated creatinine, CT abd/pelvis shows high riding cecum with dilated ascending colon and concern for volvulus at hepatic flexure. Pt reports cholecystectomy in the past. 02/13. She is not having any abdominal pain, epidural running. Tried clear liquids for breakfast and became nauseated, given zofran and reglan. She has not yet ambulated. Not passed flatus and no BM. Objective - Vital Signs Vital signs: Vital Signs Temp 98.4 F 02/13/19 20:45 Pulse 67 02/13/19 20:45 Resp 16 02/13/19 20:45 BP 102/64 02/13/19 20:45 Pulse Ox 96 02/13/19 20:45 Intake & Output 02/13/19 02/13/19 02/14/19 06:59 18:59 06:59 Output Total 400 300 Balance -400 -300 Output: Urine 400 300 Other: Voiding Method Indwelling Catheter Indwelling Catheter Indwelling Catheter - Exam Gen: NAD, vitals reviewed CV: RRR, no murmur Lungs: clear bilaterally Abd: soft, hypoactive bowel sounds, generalized TTP Skin: warm and dry, no erythema - Labs CBC & Chem 7: 02/13/19 10:42 02/13/19 10:42 Labs: Abnormal Lab Results - Last 24 Hours (Table) 02/13/19 02/13/19 02/13/19 Range/Units 07:27 10:42 10:42 RBC 3.38 L (3.80-5.40) m/uL Hgb 11.2 L (11.4-16.0) gm/dL MCV 104.9 H (80.0-100.0) fL Lymphocytes # 0.4 L (1.0-4.8) k/uL Chloride 108 H (98-107) mmol/L Glucose 201 H (74-99) mg/dL POC Glucose (mg/dL) 157 H (75-99) mg/dL 02/13/19 02/13/19 02/13/19 Range/Units 11:05 16:49 20:50 RBC (3.80-5.40) m/uL Hgb (11.4-16.0) gm/dL MCV (80.0-100.0) fL Lymphocytes # (1.0-4.8) k/uL Chloride (98-107) mmol/L Glucose (74-99) mg/dL POC Glucose (mg/dL) 191 H 203 H 181 H (75-99) mg/dL Assessment and Plan (1) Partial intestinal obstruction Current Visit: Yes Status: Acute Code(s): K56.600 - PARTIAL INTESTINAL OBSTRUCTION, UNSPECIFIED TO CAUSE SNOMED Code(s): 80513235 (2) Coronary artery disease Current Visit: Yes Status: Acute Code(s): I25.10 - ATHSCL HEART DISEASE OF [place] CORONARY ARTERY W/O ANG PCTRS SNOMED Code(s): 67715266 (3) Type 2 diabetes mellitus Current Visit: Yes Status: Acute Code(s): E11.9 - TYPE 2 DIABETES MELLITUS WITHOUT COMPLICATIONS SNOMED Code(s): 30326082 (4) Volvulus of large intestine Current Visit: Yes Status: Acute Code(s): K56.2 - VOLVULUS SNOMED Code(s): 673153410 (5) Abdominal pain Current Visit: Yes Status: Acute Code(s): R10.9 - UNSPECIFIED ABDOMINAL PAIN SNOMED Code(s): 70781072 Plan: 1. Colonic obstruction. POD#1 after R hemicolectomy. Pt NPO with ice chips. No further abx. Manage nausea with zofran and reglan. Ambulate. Advance diet as tolerated 2. CAD. hold ASA and statin 3. T2DM. Hold insulin while NPO DVT prophylaxis heparin GI prophylaxis protonix
[2019-02-14] MEDS: SODIUM CHLORIDE 0.9% 1,000 ML IV SCH ×3 (04:31→21:09)
[2019-02-14] MEDS: D5-0.45% NACL WITH KCL 20MEQ/L 1,000 ML IV SCH ×2 (07:00→09:45)
[2019-02-14 07:04] LABS: Glucose,Whole Blood 136 mg/dL (75-99)
[2019-02-14] MEDS: INSULIN ASPART (NovoLOG) 100 UNIT/ML VIAL SQ SCH ×4 (07:52→21:06)
[2019-02-14] MEDS: ALVIMOPAN 12 MG CAPSULE PO SCH ×2 (07:52→21:09)
[2019-02-14] MEDS: HEPARIN SODIUM,PORCINE 5,000 UNIT/ML 1 ML VIAL SQ SCH ×3 (07:52→23:27)
[2019-02-14] MEDS: PANTOPRAZOLE 40 MG/10 ML VIAL IVP SCH ×2 (07:52→21:09)
[2019-02-14 08:11] LABS: Basophils % (A) 0 %; Eosinophils # (A) 0.1 k/uL (0-0.7); Eosinophils % (A) 1 %; HCT 32.4 % (34.0-46.0); HGB 10.3 gm/dL (11.4-16.0); Lymphocytes # (A) 0.9 k/uL (1.0-4.8); Lymphocytes % (A) 18 %; MCH 32.7 pg (25.0-35.0); MCHC 31.8 g/dL (31.0-37.0); MCV 102.9 fL (80.0-100.0); Macrocytosis Slight; Mean Platelet Volume 7.4; Monocytes # (A) 0.3 k/uL (0-1.0); Monocytes % (A) 6 %; Neutrophils # (A) 3.9 k/uL (1.3-7.7); Neutrophils % (A) 74 %; Platelet Count 173 k/uL (150-450); RBC 3.15 m/uL (3.80-5.40); RDW 12.8 % (11.5-15.5); WBC 5.3 k/uL (3.8-10.6)
[2019-02-14 08:19] LABS: Calcium 8.7 mg/dL (8.4-10.2); Potassium 5.2 mmol/L (3.5-5.1)
[2019-02-14] MEDS ORDERED: HYDROmorphone 0.5 MG/0.5 ML SYRINGE IVP PRN (10:02)
[2019-02-14] MEDS ORDERED: LACTATED RINGERS 1,000 ML IV SCH (10:02)
[2019-02-14 12:15] LABS: Glucose,Whole Blood 103 mg/dL (75-99)
[2019-02-14] MEDS: METOCLOPRAMIDE 5 MG/ML 2 ML VIAL IVP PRN (12:24)
--- NOTE | 2019-02-14 12:30 | P.PN ---
Progress Note - Text Anesthesia POD 2. Status Post right colectomy under general endotracheal anesthesia with an epidrual catheter placed at T12 for post surgical pain releif. VAS (0, 3) with Ropivicaine 0.1 % and Dilaudid 20 mcg / cc running at 6 cc / hr. Lower extremity strength (4/4). [] sedation. Site looks OK.
--- NOTE | 2019-02-14 12:55 | P.PN ---
<Raegan Rosario Debi - Last Filed: 02/14/19 14:22> Subjective Progress Note Date: 02/14/19 CHIEF COMPLAINT: abdominal pain HISTORY OF PRESENT ILLNESS: Patient is status post right colectomy secondary to colonic obstruction due to right colon volvulus. POD #2. Patient examined this more at the bedside. She reports her pain is tolerable. Epidural is infusing. Perez with clear yellow urine. She was made NPO yesterday secondary to nausea and dry heaves. Patient reports this has resolved. Passing flatus. Belching has resolved. No BM. She has not been OOB since surgery and reports her RN told her multiple times yesterday she would help her ambulate in the hallways but never did. She is anxious to ambulate this morning. PHYSICAL EXAM: VITAL SIGNS: Reviewed. GENERAL: Well-developed in no acute distress. HEENT: No sclera icterus. Extraocular movements grossly intact. Moist buccal mucosa. Head is atraumatic, normocephalic. ABDOMEN: Soft. Nondistended. Appropriate surgical tenderness. Dressing to midline noted. Abdominal binder present. NEUROLOGIC: Alert and oriented. Cranial nerves II through XII grossly intact. ASSESSMENT: 1. Colonic obstruction secondary to right colon volvulus, status post right colectomy PLAN: 1. Resume clear liquid diet 2. Continue Entereg 3. Continue epidural catheter. Remove POD #3 (Sunday) 4. Continue perez while epidural in place 5. Continue IV fluids. Discontinue potassium from IV fluids 6. Activity as tolerated. Patient encouraged to be OOB and ambulatory today. Will consult PT/OT for evaluation 7. Incentive spirometer 10 times an hour while awake Nurse practitioner note has been reviewed by physician. Signing provider agrees with the documented findings, assessment, and plan of care. Objective - Vital Signs Vital signs: Vital Signs Temp 98.4 F 02/14/19 07:00 Pulse 76 02/14/19 07:00 Resp 12 02/14/19 07:00 BP 113/66 02/14/19 07:00 Pulse Ox 94 L 02/14/19 07:00 Intake & Output 02/13/19 02/14/19 02/14/19 18:59 06:59 18:59 Intake Total 107.4 Output Total 300 450 Balance -300 -450 107.4 Intake: Intake, IV Titration 107.4 Amount Ropivacaine 250 mg 107.4 Hydromorphone (Pf) 5 mg In Sodium Chloride 0.9% 200 ml @ Per Protocol EPIDURAL .Q0M PRN Rx#: [id number] Output: Urine 300 450 Other: Voiding Method Indwelling Catheter Indwelling Catheter Indwelling Catheter - Labs CBC & Chem 7: 02/14/19 07:23 02/14/19 07:23 Labs: Abnormal Lab Results - Last 24 Hours (Table) 02/13/19 02/13/19 02/14/19 Range/Units 16:49 20:50 07:00 RBC (3.80-5.40) m/uL Hgb (11.4-16.0) gm/dL Hct (34.0-46.0) % MCV (80.0-100.0) fL Lymphocytes # (1.0-4.8) k/uL Potassium (3.5-5.1) mmol/L Chloride (98-107) mmol/L Carbon Dioxide (22-30) mmol/L Glucose (74-99) mg/dL POC Glucose (mg/dL) 203 H 181 H 136 H (75-99) mg/dL 02/14/19 02/14/19 02/14/19 Range/Units 07:23 07:23 12:13 RBC 3.15 L (3.80-5.40) m/uL Hgb 10.3 L (11.4-16.0) gm/dL Hct 32.4 L (34.0-46.0) % MCV 102.9 H (80.0-100.0) fL Lymphocytes # 0.9 L (1.0-4.8) k/uL Potassium 5.2 H (3.5-5.1) mmol/L Chloride 111 H (98-107) mmol/L Carbon Dioxide 20 L (22-30) mmol/L Glucose 131 H (74-99) mg/dL POC Glucose (mg/dL) 103 H (75-99) mg/dL <Antonio Guevara - Last Filed: 02/14/19 17:42> Subjective As above. Patient complaining of nausea today. No vomiting. She did ambulate today. Continue clear liquid diet only. Will follow. Objective - Vital Signs Vital signs: Vital Signs Temp 98.3 F 02/14/19 15:23 Pulse 80 02/14/19 15:23 Resp 12 02/14/19 15:23 BP 132/73 02/14/19 15:23 Pulse Ox 92 L 02/14/19 16:48 Intake & Output 02/13/19 02/14/19 02/14/19 18:59 06:59 18:59 Intake Total 107.4 Output Total 300 450 Balance -300 -450 107.4 Intake: Intake, IV Titration 107.4 Amount Ropivacaine 250 mg 107.4 Hydromorphone (Pf) 5 mg In Sodium Chloride 0.9% 200 ml @ Per Protocol EPIDURAL .Q0M PRN Rx#: [id number] Output: Urine 300 450 Other: Voiding Method Indwelling Catheter Indwelling Catheter Indwelling Catheter - Labs CBC & Chem 7: 02/14/19 07:23 02/14/19 07:23 Labs: Abnormal Lab Results - Last 24 Hours (Table) 02/13/19 02/14/19 02/14/19 Range/Units 20:50 07:00 07:23 RBC 3.15 L (3.80-5.40) m/uL Hgb 10.3 L (11.4-16.0) gm/dL Hct 32.4 L (34.0-46.0) % MCV 102.9 H (80.0-100.0) fL Lymphocytes # 0.9 L (1.0-4.8) k/uL Potassium (3.5-5.1) mmol/L Chloride (98-107) mmol/L Carbon Dioxide (22-30) mmol/L Glucose (74-99) mg/dL POC Glucose (mg/dL) 181 H 136 H (75-99) mg/dL 02/14/19 02/14/19 02/14/19 Range/Units 07:23 12:13 16:52 RBC (3.80-5.40) m/uL Hgb (11.4-16.0) gm/dL Hct (34.0-46.0) % MCV (80.0-100.0) fL Lymphocytes # (1.0-4.8) k/uL Potassium 5.2 H (3.5-5.1) mmol/L Chloride 111 H (98-107) mmol/L Carbon Dioxide 20 L (22-30) mmol/L Glucose 131 H (74-99) mg/dL POC Glucose (mg/dL) 103 H 163 H (75-99) mg/dL
[2019-02-14] MEDS: DEXTROSE 5%-0.45% NACL 1,000 ML IV SCH ×2 (14:29→23:27)
--- NOTE | 2019-02-14 15:55 | P.PN ---
Subjective Progress Note Date: 02/14/19 Adriana Calderón is a 64 yo F with PMH significant for CAD, T2DM, insomnia who presented to [facility] ED with a 2 week history of progressive abdominal pain. She first noticed this when it woke her out of sleep and since then she has had generalized pain every day. Characterizes as dull ache and bloating. Pain significantly worsened the day of admission so pt came to the hospital. She does complain of nausea and reduced appetite as well. No vomiting, fevers or chills. She did have EGD and colonoscopy in 2017 which showed mild gastritis and esophagitis. No sick contacts. In the ED vitals stable, labs significant for elevated creatinine, CT abd/pelvis shows high riding cecum with dilated ascending colon and concern for volvulus at hepatic flexure. Pt reports cholecystectomy in the past. 02/13. She is not having any abdominal pain, epidural running. Tried clear liquids for breakfast and became nauseated, given zofran and reglan. She has not yet ambulated. Not passed flatus and no BM. 02/14. Still has not ambulated, no flatus or BM. Abdomen only mildly tender. No further nausea yesterday but has remained NPO. Objective - Vital Signs Vital signs: Vital Signs Temp 98.3 F 02/14/19 15:23 Pulse 80 02/14/19 15:23 Resp 12 02/14/19 15:23 BP 132/73 02/14/19 15:23 Pulse Ox 97 02/14/19 15:23 Intake & Output 02/13/19 02/14/19 02/14/19 18:59 06:59 18:59 Intake Total 107.4 Output Total 300 450 Balance -300 -450 107.4 Intake: Intake, IV Titration 107.4 Amount Ropivacaine 250 mg 107.4 Hydromorphone (Pf) 5 mg In Sodium Chloride 0.9% 200 ml @ Per Protocol EPIDURAL .Q0M PRN Rx#: [id number] Output: Urine 300 450 Other: Voiding Method Indwelling Catheter Indwelling Catheter Indwelling Catheter - Exam Gen: NAD, vitals reviewed CV: RRR, no murmur Lungs: clear bilaterally Abd: soft, hypoactive bowel sounds, generalized TTP Skin: warm and dry, no erythema - Labs CBC & Chem 7: 02/14/19 07:23 02/14/19 07:23 Labs: Abnormal Lab Results - Last 24 Hours (Table) 02/13/19 02/13/19 02/14/19 Range/Units 16:49 20:50 07:00 RBC (3.80-5.40) m/uL Hgb (11.4-16.0) gm/dL Hct (34.0-46.0) % MCV (80.0-100.0) fL Lymphocytes # (1.0-4.8) k/uL Potassium (3.5-5.1) mmol/L Chloride (98-107) mmol/L Carbon Dioxide (22-30) mmol/L Glucose (74-99) mg/dL POC Glucose (mg/dL) 203 H 181 H 136 H (75-99) mg/dL 02/14/19 02/14/19 02/14/19 Range/Units 07:23 07:23 12:13 RBC 3.15 L (3.80-5.40) m/uL Hgb 10.3 L (11.4-16.0) gm/dL Hct 32.4 L (34.0-46.0) % MCV 102.9 H (80.0-100.0) fL Lymphocytes # 0.9 L (1.0-4.8) k/uL Potassium 5.2 H (3.5-5.1) mmol/L Chloride 111 H (98-107) mmol/L Carbon Dioxide 20 L (22-30) mmol/L Glucose 131 H (74-99) mg/dL POC Glucose (mg/dL) 103 H (75-99) mg/dL Assessment and Plan (1) Partial intestinal obstruction Current Visit: Yes Status: Acute Code(s): K56.600 - PARTIAL INTESTINAL OBSTRUCTION, UNSPECIFIED TO CAUSE SNOMED Code(s): 74453568 (2) Coronary artery disease Current Visit: Yes Status: Acute Code(s): I25.10 - ATHSCL HEART DISEASE OF [place] CORONARY ARTERY W/O ANG PCTRS SNOMED Code(s): 80492016 (3) Type 2 diabetes mellitus Current Visit: Yes Status: Acute Code(s): E11.9 - TYPE 2 DIABETES MELLITUS WITHOUT COMPLICATIONS SNOMED Code(s): 29023036 (4) Volvulus of large intestine Current Visit: Yes Status: Acute Code(s): K56.2 - VOLVULUS SNOMED Code(s): 738236897 (5) Abdominal pain Current Visit: Yes Status: Acute Code(s): R10.9 - UNSPECIFIED ABDOMINAL PAIN SNOMED Code(s): 19599865 Plan: 1. Colonic obstruction. POD#2 after R hemicolectomy. Pt NPO with ice chips. No further abx. Manage nausea with zofran and reglan. Ambulate. Advance diet as tolerated 2. CAD. hold ASA and statin 3. T2DM. Hold insulin while NPO DVT prophylaxis heparin GI prophylaxis protonix
[2019-02-14 16:55] LABS: Glucose,Whole Blood 163 mg/dL (75-99)
[2019-02-14 21:17] LABS: Glucose,Whole Blood 91 mg/dL (75-99)
[2019-02-15] MEDS: ROPIVACAINE 250 MG, HYDROMORPHONE (PF) 5 MG in SODIUM CHLORIDE 0.9% 200 ML EPIDURAL PRN (05:39)
[2019-02-15 07:09] LABS: Glucose,Whole Blood 99 mg/dL (75-99)
[2019-02-15] MEDS: HEPARIN SODIUM,PORCINE 5,000 UNIT/ML 1 ML VIAL SQ SCH ×4 (07:22→23:57)
[2019-02-15] MEDS: INSULIN ASPART (NovoLOG) 100 UNIT/ML VIAL SQ SCH ×4 (07:22→20:56)
[2019-02-15] MEDS: ALVIMOPAN 12 MG CAPSULE PO SCH ×2 (07:32→21:23)
[2019-02-15] MEDS: PANTOPRAZOLE 40 MG/10 ML VIAL IVP SCH (07:33)
[2019-02-15 08:12] LABS: Basophils % (A) 1 %; Eosinophils # (A) 0.2 k/uL (0-0.7); Eosinophils % (A) 3 %; HCT 31.1 % (34.0-46.0); HGB 10.2 gm/dL (11.4-16.0); Lymphocytes # (A) 0.9 k/uL (1.0-4.8); Lymphocytes % (A) 22 %; MCH 33.3 pg (25.0-35.0); MCHC 32.6 g/dL (31.0-37.0); Macrocytosis Slight; Mean Platelet Volume 7.4; Monocytes # (A) 0.2 k/uL (0-1.0); Monocytes % (A) 6 %; Neutrophils # (A) 2.9 k/uL (1.3-7.7); Neutrophils % (A) 67 %; Platelet Count 167 k/uL (150-450); RBC 3.05 m/uL (3.80-5.40); RDW 12.8 % (11.5-15.5); WBC 4.3 k/uL (3.8-10.6)
[2019-02-15 08:34] LABS: Calcium 8.7 mg/dL (8.4-10.2); Potassium 4.8 mmol/L (3.5-5.1)
--- NOTE | 2019-02-15 09:48 | P.PN ---
Progress Note - Text Progress Note Date: 02/15/19 POD 3, Doing better today, no bowel movement yet. not ambulated yet. Love still in place. No parasthesia, no weakness. surgeon requesting removal of the catheter today. d/c today. remove after 6 hours from last heparin dose.
--- NOTE | 2019-02-15 09:52 | P.PN ---
Subjective Progress Note Date: 02/15/19 Principal diagnosis: Colonic volvulus Patient doing well since yesterday. No nausea or vomiting now. She is anxious for more to eat. T-max 99.2. White blood cell count 4.3. Objective - Vital Signs Vital signs: Vital Signs Temp 98.6 F 02/15/19 07:00 Pulse 60 02/15/19 08:00 Resp 12 02/15/19 08:00 BP 117/69 02/15/19 07:00 Pulse Ox 91 L 02/15/19 07:00 Intake & Output 02/14/19 02/15/19 02/15/19 18:59 06:59 18:59 Intake Total 107.4 121.683 Output Total 2500 Balance 107.4 -2378.317 Intake: Intake, IV Titration 107.4 121.683 Amount Ropivacaine 250 mg 107.4 121.683 Hydromorphone (Pf) 5 mg In Sodium Chloride 0.9% 200 ml @ Per Protocol EPIDURAL .Q0M PRN Rx#: [id number] Output: Urine 2500 Other: Voiding Method Indwelling Catheter Indwelling Catheter Indwelling Catheter - Exam Abdomen: Soft, nondistended, incision clean and dry, minimal tenderness - Labs CBC & Chem 7: 02/15/19 07:00 02/15/19 07:00 Labs: Abnormal Lab Results - Last 24 Hours (Table) 02/14/19 02/14/19 02/15/19 Range/Units 12:13 16:52 07:00 RBC 3.05 L (3.80-5.40) m/uL Hgb 10.2 L (11.4-16.0) gm/dL Hct 31.1 L (34.0-46.0) % MCV 102.0 H (80.0-100.0) fL Lymphocytes # 0.9 L (1.0-4.8) k/uL Chloride (98-107) mmol/L Glucose (74-99) mg/dL POC Glucose (mg/dL) 103 H 163 H (75-99) mg/dL 02/15/19 Range/Units 07:00 RBC (3.80-5.40) m/uL Hgb (11.4-16.0) gm/dL Hct (34.0-46.0) % MCV (80.0-100.0) fL Lymphocytes # (1.0-4.8) k/uL Chloride 111 H (98-107) mmol/L Glucose 101 H (74-99) mg/dL POC Glucose (mg/dL) (75-99) mg/dL Assessment and Plan (1) Volvulus of large intestine Narrative/Plan: Patient doing better today. Will advance diet. Increase activity. Remove epidural. Current Visit: Yes Status: Acute Code(s): K56.2 - VOLVULUS SNOMED Code(s): 745084855
[2019-02-15] MEDS: SODIUM CHLORIDE 0.9% 1,000 ML IV SCH ×2 (11:21→20:46)
[2019-02-15] MEDS: KETOROLAC 30 MG/ML 1 ML VIAL IVP SCH ×3 (11:54→23:52)
[2019-02-15 12:00] LABS: Glucose,Whole Blood 107 mg/dL (75-99)
--- NOTE | 2019-02-15 13:43 | P.PN ---
Subjective Progress Note Date: 02/15/19 Principal diagnosis: Colonic volvulus Patient is seen and evaluated in the room at bedside; patient diet has been advanced and is able to ambulate without much concerns about pain; patient denies any nausea vomiting Objective - Vital Signs Vital signs: Vital Signs Temp 98.6 F 02/15/19 07:00 Pulse 60 02/15/19 08:00 Resp 12 02/15/19 08:00 BP 117/69 02/15/19 07:00 Pulse Ox 91 L 02/15/19 07:00 Intake & Output 02/14/19 02/15/19 02/15/19 18:59 06:59 18:59 Intake Total 107.4 121.683 Output Total 2500 Balance 107.4 -2378.317 Intake: Intake, IV Titration 107.4 121.683 Amount Ropivacaine 250 mg 107.4 121.683 Hydromorphone (Pf) 5 mg In Sodium Chloride 0.9% 200 ml @ Per Protocol EPIDURAL .Q0M PRN Rx#: [id number] Output: Urine 2500 Other: Voiding Method Indwelling Catheter Indwelling Catheter Indwelling Catheter - Exam PHYSICAL EXAMINATION: GENERAL: The patient is alert and oriented x3, not in any acute distress. Well developed, well nourished. HEENT: Pupils are round and equally reacting to light. EOMI. No scleral icterus. No conjunctival pallor. Normocephalic, atraumatic. No pharyngeal erythema. No thyromegaly. CARDIOVASCULAR: S1 and S2 present. No murmurs, rubs, or gallops. PULMONARY: Chest is clear to auscultation, no wheezing or crackles. ABDOMEN: Soft, nontender, nondistended, normoactive bowel sounds. No palpable organomegaly. MUSCULOSKELETAL: No joint swelling or deformity. EXTREMITIES: No cyanosis, clubbing, or pedal edema. NEUROLOGICAL: Gross neurological examination did not reveal any focal deficits. SKIN: No rashes. - Labs CBC & Chem 7: 02/15/19 07:00 02/15/19 07:00 Labs: Abnormal Lab Results - Last 24 Hours (Table) 02/14/19 02/14/19 02/15/19 Range/Units 12:13 16:52 07:00 RBC 3.05 L (3.80-5.40) m/uL Hgb 10.2 L (11.4-16.0) gm/dL Hct 31.1 L (34.0-46.0) % MCV 102.0 H (80.0-100.0) fL Lymphocytes # 0.9 L (1.0-4.8) k/uL Chloride (98-107) mmol/L Glucose (74-99) mg/dL POC Glucose (mg/dL) 103 H 163 H (75-99) mg/dL 02/15/19 02/15/19 Range/Units 07:00 11:48 RBC (3.80-5.40) m/uL Hgb (11.4-16.0) gm/dL Hct (34.0-46.0) % MCV (80.0-100.0) fL Lymphocytes # (1.0-4.8) k/uL Chloride 111 H (98-107) mmol/L Glucose 101 H (74-99) mg/dL POC Glucose (mg/dL) 107 H (75-99) mg/dL Assessment and Plan Assessment: 1. Partial intestinal obstruction/volvulus of large intestine - Patient is status post right hemicolectomy; POD #3 - Patient denies nausea or vomiting; surgery is following and recommending to increase activity and advance diet slowly - Remains on Reglan 10 mg IV every 6 hours when necessary 2. Diabetes mellitus type 2; continue with Accu-Cheks with insulin sliding scale if needed 3. Coronary artery disease; aspirin and statin therapy has been on hold 4. Hypertension; patient takes losartan 100 mg daily at home; blood pressure is being monitored closely and losartan remains on hold until blood pressure starts showing an upward trend 5. Asthma; not in exacerbation; continue with bronchodilator nebulizer treatment and restart home dose of Singulair once stable 6. DVT prophylaxis; subcu heparin CODE STATUS; full code
[2019-02-15] MEDS: METOCLOPRAMIDE 5 MG/ML 2 ML VIAL IVP PRN ×2 (16:41→22:50)
[2019-02-15 17:13] LABS: Glucose,Whole Blood 117 mg/dL (75-99)
[2019-02-15] MEDS: DEXTROSE 5%-0.45% NACL 1,000 ML IV SCH (20:46)
[2019-02-15] MEDS: ONDANSETRON 4 MG/2 ML VIAL IVP PRN (20:54)
[2019-02-15] MEDS: PANTOPRAZOLE 40 MG TABLET PO SCH (20:54)
[2019-02-15 21:00] LABS: Glucose,Whole Blood 137 mg/dL (75-99)
[2019-02-15 21:11] LABS: Basophils % (A) 0 %; Eosinophils # (A) 0.1 k/uL (0-0.7); Eosinophils % (A) 2 %; HCT 32.9 % (34.0-46.0); HGB 10.2 gm/dL (11.4-16.0); Lymphocytes # (A) 0.6 k/uL (1.0-4.8); Lymphocytes % (A) 13 %; MCH 31.8 pg (25.0-35.0); MCHC 31.1 g/dL (31.0-37.0); MCV 102.3 fL (80.0-100.0); Macrocytosis Slight; Mean Platelet Volume 7.1; Monocytes # (A) 0.3 k/uL (0-1.0); Monocytes % (A) 6 %; Neutrophils # (A) 3.8 k/uL (1.3-7.7); Neutrophils % (A) 78 %; Platelet Count 178 k/uL (150-450); RBC 3.22 m/uL (3.80-5.40); RDW 12.4 % (11.5-15.5); WBC 4.9 k/uL (3.8-10.6)
[2019-02-15] MEDS: HYDROcodone/APAP 5-325MG 1 EACH TAB PO PRN (22:51)
[2019-02-16] MEDS: HYDROcodone/APAP 5-325MG 1 EACH TAB PO PRN (04:45)
[2019-02-16] MEDS: ONDANSETRON 4 MG/2 ML VIAL IVP PRN (04:45)
[2019-02-16] MEDS: SODIUM CHLORIDE 0.9% 1,000 ML IV SCH ×3 (05:05→23:32)
[2019-02-16] MEDS: KETOROLAC 30 MG/ML 1 ML VIAL IVP SCH ×4 (05:56→23:11)
[2019-02-16] MEDS: DEXTROSE 5%-0.45% NACL 1,000 ML IV SCH ×2 (05:59→20:49)
[2019-02-16 07:12] LABS: Glucose,Whole Blood 157 mg/dL (75-99)
[2019-02-16 07:45] LABS: Basophils % (A) 0 %; Eosinophils % (A) 1 %; HCT 29.7 % (34.0-46.0); HGB 9.6 gm/dL (11.4-16.0); Lymphocytes # (A) 0.5 k/uL (1.0-4.8); Lymphocytes % (A) 10 %; MCH 32.9 pg (25.0-35.0); MCHC 32.3 g/dL (31.0-37.0); MCV 101.9 fL (80.0-100.0); Mean Platelet Volume 7.4; Monocytes # (A) 0.2 k/uL (0-1.0); Monocytes % (A) 6 %; Neutrophils # (A) 3.5 k/uL (1.3-7.7); Neutrophils % (A) 82 %; Platelet Count 185 k/uL (150-450); RBC 2.92 m/uL (3.80-5.40); RDW 12.5 % (11.5-15.5); WBC 4.3 k/uL (3.8-10.6)
[2019-02-16 08:11] LABS: Calcium 8.8 mg/dL (8.4-10.2); Potassium 5.1 mmol/L (3.5-5.1)
[2019-02-16] MEDS: INSULIN ASPART (NovoLOG) 100 UNIT/ML VIAL SQ SCH ×4 (08:50→20:55)
[2019-02-16] MEDS ORDERED: ACETAMINOPHEN IV (For NPO) 1,000 MG in EMPTY BAG 1 BAG IVPB ONE (09:15)
[2019-02-16] MEDS ORDERED: ACETAMINOPHEN TAB 325 MG TAB PO PRN (09:16)
[2019-02-16] MEDS: HEPARIN SODIUM,PORCINE 5,000 UNIT/ML 1 ML VIAL SQ SCH ×3 (09:26→23:12)
[2019-02-16] MEDS: ALVIMOPAN 12 MG CAPSULE PO SCH ×2 (09:26→20:55)
[2019-02-16] MEDS: PANTOPRAZOLE 40 MG TABLET PO SCH ×2 (09:26→20:55)
--- NOTE | 2019-02-16 11:02 | P.PN ---
Subjective Progress Note Date: 02/16/19 Principal diagnosis: Colonic volvulus Patient had 2 liquid bloody stools last night. Complaining of mild headache and nausea today. White blood cell count 4.3 hemoglobin 9.6. Objective - Vital Signs Vital signs: Vital Signs Temp 98.1 F 02/16/19 07:00 Pulse 75 02/16/19 08:00 Resp 12 02/16/19 08:00 BP 151/76 02/16/19 07:00 Pulse Ox 96 02/16/19 07:00 Intake & Output 02/15/19 02/16/19 02/16/19 18:59 06:59 18:59 Intake Total 700 Output Total 600 Balance 100 Weight 81.647 kg Intake: Oral 700 Output: Urine 600 Other: Voiding Method Toilet Toilet # Voids 1 - Exam Abdomen: Soft, nondistended, mild tenderness, incision clean and dry - Labs CBC & Chem 7: 02/16/19 06:33 02/16/19 06:33 Labs: Abnormal Lab Results - Last 24 Hours (Table) 02/15/19 02/15/19 02/15/19 Range/Units 11:48 17:01 20:49 RBC (3.80-5.40) m/uL Hgb (11.4-16.0) gm/dL Hct (34.0-46.0) % MCV (80.0-100.0) fL Lymphocytes # (1.0-4.8) k/uL Chloride (98-107) mmol/L Carbon Dioxide (22-30) mmol/L Creatinine (0.52-1.04) mg/dL Glucose (74-99) mg/dL POC Glucose (mg/dL) 107 H 117 H 137 H (75-99) mg/dL 02/15/19 02/16/19 02/16/19 Range/Units 20:50 06:33 06:33 RBC 3.22 L 2.92 L (3.80-5.40) m/uL Hgb 10.2 L 9.6 L (11.4-16.0) gm/dL Hct 32.9 L 29.7 L (34.0-46.0) % MCV 102.3 H 101.9 H (80.0-100.0) fL Lymphocytes # 0.6 L 0.5 L (1.0-4.8) k/uL Chloride 109 H (98-107) mmol/L Carbon Dioxide 21 L (22-30) mmol/L Creatinine 1.05 H (0.52-1.04) mg/dL Glucose 135 H (74-99) mg/dL POC Glucose (mg/dL) (75-99) mg/dL 02/16/19 Range/Units 07:00 RBC (3.80-5.40) m/uL Hgb (11.4-16.0) gm/dL Hct (34.0-46.0) % MCV (80.0-100.0) fL Lymphocytes # (1.0-4.8) k/uL Chloride (98-107) mmol/L Carbon Dioxide (22-30) mmol/L Creatinine (0.52-1.04) mg/dL Glucose (74-99) mg/dL POC Glucose (mg/dL) 157 H (75-99) mg/dL Assessment and Plan (1) Volvulus of large intestine Narrative/Plan: Continue diet as ordered. Ambulate. IV Tylenol for headache. Monitor CBC. Current Visit: Yes Status: Acute Code(s): K56.2 - VOLVULUS SNOMED Code(s): 179822314
[2019-02-16 12:02] LABS: Glucose,Whole Blood 174 mg/dL (75-99)
--- NOTE | 2019-02-16 15:51 | P.PN ---
Subjective Progress Note Date: 02/16/19 Principal diagnosis: Colonic volvulus Patient is seen and evaluated in the room at bedside; patient diet has been advanced and is able to ambulate without much concerns about pain; patient denies any nausea vomiting 24-hour interval change 02/16/2019 Patient is seen and evaluated in the room at bedside; concerned about 2 bloody loose bowel movements last night; complains of nausea this morning without any vomiting Vital signs are stable with a temperature of 98.1, pulse 75, respiration 12 and blood pressure of 151/76 SpO2 of 96% on room air Labs remained stable with white blood count of 4.3, hemoglobin slightly dropped from yesterday at 10.2-9.6 this morning; sodium level 138, potassium 5.1; BUN 15 with slight elevation of creatinine at 1.05 Surgery is following and recommending to continue with diet as tolerated; patient is given IV Tylenol for headache; she is encouraged to increase oral fluid intake and increase ambulation; we will plan to monitor renal function and electrolytes; avoid nephrotoxins; possible discharge in next 24-48 hours once cleared by surgery Objective - Vital Signs Vital signs: Vital Signs Temp 98.1 F 02/16/19 07:00 Pulse 75 02/16/19 08:00 Resp 12 02/16/19 08:00 BP 151/76 02/16/19 07:00 Pulse Ox 96 02/16/19 07:00 Intake & Output 02/15/19 02/16/19 02/16/19 18:59 06:59 18:59 Intake Total 700 300 Output Total 600 Balance 100 300 Weight 81.647 kg Intake: Oral 700 300 Output: Urine 600 Other: Voiding Method Toilet Toilet # Voids 1 - Exam PHYSICAL EXAMINATION: GENERAL: The patient is alert and oriented x3, not in any acute distress. Well developed, well nourished. HEENT: Pupils are round and equally reacting to light. EOMI. No scleral icterus. No conjunctival pallor. Normocephalic, atraumatic. No pharyngeal erythema. No thyromegaly. CARDIOVASCULAR: S1 and S2 present. No murmurs, rubs, or gallops. PULMONARY: Chest is clear to auscultation, no wheezing or crackles. ABDOMEN: Soft, nontender, nondistended, normoactive bowel sounds. No palpable organomegaly. MUSCULOSKELETAL: No joint swelling or deformity. EXTREMITIES: No cyanosis, clubbing, or pedal edema. NEUROLOGICAL: Gross neurological examination did not reveal any focal deficits. SKIN: No rashes. - Labs CBC & Chem 7: 02/16/19 06:33 02/16/19 06:33 Labs: Abnormal Lab Results - Last 24 Hours (Table) 02/15/19 02/15/19 02/15/19 Range/Units 17:01 20:49 20:50 RBC 3.22 L (3.80-5.40) m/uL Hgb 10.2 L (11.4-16.0) gm/dL Hct 32.9 L (34.0-46.0) % MCV 102.3 H (80.0-100.0) fL Lymphocytes # 0.6 L (1.0-4.8) k/uL Chloride (98-107) mmol/L Carbon Dioxide (22-30) mmol/L Creatinine (0.52-1.04) mg/dL Glucose (74-99) mg/dL POC Glucose (mg/dL) 117 H 137 H (75-99) mg/dL 02/16/19 02/16/19 02/16/19 Range/Units 06:33 06:33 07:00 RBC 2.92 L (3.80-5.40) m/uL Hgb 9.6 L (11.4-16.0) gm/dL Hct 29.7 L (34.0-46.0) % MCV 101.9 H (80.0-100.0) fL Lymphocytes # 0.5 L (1.0-4.8) k/uL Chloride 109 H (98-107) mmol/L Carbon Dioxide 21 L (22-30) mmol/L Creatinine 1.05 H (0.52-1.04) mg/dL Glucose 135 H (74-99) mg/dL POC Glucose (mg/dL) 157 H (75-99) mg/dL 02/16/19 Range/Units 11:50 RBC (3.80-5.40) m/uL Hgb (11.4-16.0) gm/dL Hct (34.0-46.0) % MCV (80.0-100.0) fL Lymphocytes # (1.0-4.8) k/uL Chloride (98-107) mmol/L Carbon Dioxide (22-30) mmol/L Creatinine (0.52-1.04) mg/dL Glucose (74-99) mg/dL POC Glucose (mg/dL) 174 H (75-99) mg/dL Assessment and Plan Assessment: 1. Partial intestinal obstruction/volvulus of large intestine - Patient is status post right hemicolectomy; POD #3 - Patient denies nausea or vomiting; surgery is following and recommending to increase activity and advance diet slowly - Remains on Reglan 10 mg IV every 6 hours when necessary 2. Diabetes mellitus type 2; continue with Accu-Cheks with insulin sliding scale if needed 3. Coronary artery disease; aspirin and statin therapy has been on hold 4. Hypertension; patient takes losartan 100 mg daily at home; blood pressure is being monitored closely and losartan remains on hold until blood pressure starts showing an upward trend 5. Asthma; not in exacerbation; continue with bronchodilator nebulizer treatment and restart home dose of Singulair once stable 6. DVT prophylaxis; subcu heparin CODE STATUS; full code Time with Patient: Greater than 30
[2019-02-16 17:38] LABS: Glucose,Whole Blood 120 mg/dL (75-99)
[2019-02-16 20:41] LABS: Glucose,Whole Blood 154 mg/dL (75-99)
[2019-02-17] MEDS: DEXTROSE 5%-0.45% NACL 1,000 ML IV SCH ×2 (02:23→07:12)
[2019-02-17] MEDS: KETOROLAC 30 MG/ML 1 ML VIAL IVP SCH (05:08)
[2019-02-17] MEDS: INSULIN ASPART (NovoLOG) 100 UNIT/ML VIAL SQ SCH ×2 (06:59→11:58)
[2019-02-17 07:09] LABS: Glucose,Whole Blood 105 mg/dL (75-99)
[2019-02-17] MEDS: ALVIMOPAN 12 MG CAPSULE PO SCH (07:09)
[2019-02-17] MEDS: PANTOPRAZOLE 40 MG TABLET PO SCH (07:09)
[2019-02-17] MEDS: HEPARIN SODIUM,PORCINE 5,000 UNIT/ML 1 ML VIAL SQ SCH ×2 (07:09→12:03)
[2019-02-17] MEDS: SODIUM CHLORIDE 0.9% 1,000 ML IV SCH (07:12)
[2019-02-17 07:49] VITALS: BP 171/76; PULSE 74; RESP 16; TEMP 98.3
[2019-02-17] MEDS: HYDROcodone/APAP 5-325MG 1 EACH TAB PO PRN (10:48)
[2019-02-17 11:52] LABS: Basophils % (A) 1 %; Eosinophils # (A) 0.1 k/uL (0-0.7); Eosinophils % (A) 3 %; HCT 31.1 % (34.0-46.0); Lymphocytes # (A) 0.7 k/uL (1.0-4.8); Lymphocytes % (A) 15 %; MCH 32.8 pg (25.0-35.0); MCHC 32.3 g/dL (31.0-37.0); MCV 101.7 fL (80.0-100.0); Macrocytosis Slight; Mean Platelet Volume 7.9; Monocytes # (A) 0.4 k/uL (0-1.0); Monocytes % (A) 8 %; Neutrophils # (A) 3.5 k/uL (1.3-7.7); Neutrophils % (A) 73 %; Platelet Count 215 k/uL (150-450); RBC 3.06 m/uL (3.80-5.40); RDW 13.8 % (11.5-15.5); WBC 4.8 k/uL (3.8-10.6)
[2019-02-17 11:57] LABS: Glucose,Whole Blood 112 mg/dL (75-99)
[2019-02-17 12:04] LABS: Calcium 9.1 mg/dL (8.4-10.2); Potassium 4.7 mmol/L (3.5-5.1)
--- NOTE | 2019-02-17 14:17 | P.DS ---
Providers Date of admission: 02/11/19 10:37 Attending physician: Reji Rangel Consults: 02/11/19 14:34 Consult Physician Routine Consulting Provider: Dmitry Lewis Consult Reason/Comments: medical management Do you want consulting provider notified?: Yes Primary care physician: Karen Snowden Patient Condition at Discharge: Stable Plan - Discharge Summary Discharge Rx Participant: No New Discharge Prescriptions: New Hydrocodone/Acetaminophen [[place] 5-325] 1 tab PO Q4HR PRN 3 Days #18 tab PRN Reason: Pain No Action Sucralfate [Carafate] 1 gram PO ACHS Aspirin 81 mg PO DAILY chew Atorvastatin [Lipitor] 20 mg PO HS Nitroglycerin Sl Tabs [Nitrostat] 0.4 mg SUBLINGUAL Q5M PRN PRN Reason: Chest Pain Losartan Potassium 100 mg PO DAILY Vitamin C Gummies 1 tab PO DAILY Calcium Vit D Gummies 1 tab PO DAILY traZODone HCL 50 mg PO HS Probiotic Gummies 1 tab PO DAILY Multivitamin Gummies 1 tab PO DAILY Montelukast [Singulair] 10 mg PO W/SUPPER Magnesium 400 mg PO DAILY Pioglitazone [Actos] 30 mg PO DAILY Docusate [Colace] 100 mg PO BID Discharge Medication List Sucralfate [Carafate] 1 gram PO ACHS 05/10/17 [History] Aspirin 81 mg PO DAILY chew 05/12/17 [Rx] Atorvastatin [Lipitor] 20 mg PO HS 07/15/17 [History] Nitroglycerin Sl Tabs [Nitrostat] 0.4 mg SUBLINGUAL Q5M PRN 02/21/18 [History] Calcium Vit D Gummies 1 tab PO DAILY 02/11/19 [History] Docusate [Colace] 100 mg PO BID 02/11/19 [History] Losartan Potassium 100 mg PO DAILY 02/11/19 [History] Magnesium 400 mg PO DAILY 02/11/19 [History] Montelukast [Singulair] 10 mg PO W/SUPPER 02/11/19 [History] Multivitamin Gummies 1 tab PO DAILY 02/11/19 [History] Pioglitazone [Actos] 30 mg PO DAILY 02/11/19 [History] Probiotic Gummies 1 tab PO DAILY 02/11/19 [History] Vitamin C Gummies 1 tab PO DAILY 02/11/19 [History] traZODone HCL 50 mg PO HS 02/11/19 [History] Hydrocodone/Acetaminophen [[place] 5-325] 1 tab PO Q4HR PRN 3 Days #18 tab 02/13/19 [Rx] Follow up Appointment(s)/Referral(s): Karen Snowden DO [Primary Care Provider] - 1-2 days Reji Rangel MD [STAFF PHYSICIAN] - 1 Week Activity/Diet/Wound Care/Special Instructions: [facility] (home care): [phone] [address] while taking [place] No lifting over 10 pounds You may shower. No soaking or tub baths Very light activity until you are reevaluated at your follow up appointment with your surgeon Discharge Disposition: HOME SELF-CARE
== END 2019-02-17 13:52 | disposition home health service (06) | DRG 330 ==
LOC: EC 06:45 → 4SSUR 10:37
PROVIDERS: ADMIT Surgery; ATTEND Surgery
PROC: 0DTF0ZZ Resection of Right Large Intestine, Open Approach (ICD-10-PCS; principal; 2019-02-12 15:35)
DX: K56.2 Volvulus (principal); Q43.8 Other specified congenital malformations of intestine; N18.4 Chronic kidney disease, stage 4 (severe); I12.9 Hypertensive chronic kidney disease with stage 1 through stage 4 chronic kidney disease, or unspecified chronic kidney disease; E11.22 Type 2 diabetes mellitus with diabetic chronic kidney disease; E78.5 Hyperlipidemia, unspecified; H54.7 Unspecified visual loss; I25.10 Atherosclerotic heart disease of native coronary artery without angina pectoris; J45.909 Unspecified asthma, uncomplicated; K21.9 Gastro-esophageal reflux disease without esophagitis; Z79.82 Long term (current) use of aspirin; Z79.84 Long term (current) use of oral hypoglycemic drugs; Z79.899 Other long term (current) drug therapy; Z80.3 Family history of malignant neoplasm of breast; Z82.3 Family history of stroke; Z82.49 Family history of ischemic heart disease and other diseases of the circulatory system; Z87.11 Personal history of peptic ulcer disease; Z87.891 Personal history of nicotine dependence
CPT/HCPCS: 36415; 71045; 71046; 74018; 74177; 76705; 80048; 80053; 81003; 82150; 83690; 85025; 88307; 96361; 96374; 96375; 96376; 99285

== ENCOUNTER 2019-03-07 11:46 | Emergency (ER) | payer BC ==
[2019-03-07 11:50] VITALS: RESP 18
[2019-03-07] MEDS ORDERED: SODIUM CHLORIDE 0.9% 1,000 ML IV STA (11:53)
--- NOTE | 2019-03-07 12:34 | ED ---
GI Bleed HPI - General Chief complaint: GI Bleed Stated complaint: GI bleed, abd pain Time Seen by Provider: 03/07/19 11:52 Source: patient Mode of arrival: ambulatory Limitations: no limitations - History of Present Illness Initial comments: 64-year-old female presenting today for chief complaint of right-sided abdominal pain. Patient states she has had right sided dull aching abdominal pain with radiation toward the right flank for the past day. She states that she had two bloody stools today she states it is less than a teaspoon each of bright red blood. Patient states this was concerning and she called her surgeon who recommended she follow-up in the office. He felt that because the bleeding may be hemorrhoids. He'll is a postsurgical complication. As patient had a recent right-sided hemicolectomy performed on February 12. Patient states that she does symptoms prior to this. Just a flulike symptoms fevers. She denies any armand diarrhea or constipation. She denies vomiting patient denies any chest pain shortness of breath or chest pain or leg swelling. Patient denies any history of DVT or pulmonary embolism. Remaining review of systems negative. Upon arrival patient appears well signs of acute distress. - Related Data Home Medications Medication Instructions Recorded Confirmed Sucralfate [Carafate] 1 gram PO ACHS 05/10/17 03/07/19 Atorvastatin [Lipitor] 20 mg PO HS 07/15/17 03/07/19 Nitroglycerin Sl Tabs [Nitrostat] 0.4 mg SUBLINGUAL Q5M PRN 02/21/18 03/07/19 Docusate [Colace] 100 mg PO BID 02/11/19 03/07/19 Losartan Potassium 100 mg PO DAILY 02/11/19 03/07/19 Magnesium 400 mg PO DAILY 02/11/19 03/07/19 Montelukast [Singulair] 10 mg PO W/SUPPER 02/11/19 03/07/19 Pioglitazone [Actos] 30 mg PO DAILY 02/11/19 03/07/19 traZODone HCL 50 mg PO HS 02/11/19 03/07/19 Cyclobenzaprine HCl 5 mg PO TID 03/07/19 03/07/19 Previous Rx's Medication Instructions Recorded Aspirin 81 mg PO DAILY chew 05/12/17 Allergies Allergy/AdvReac Type Severity Reaction Status Date / Time sulfamethoxazole Allergy Unknown Verified 03/07/19 12:03 [From Bactrim] trimethoprim [From Bactrim] Allergy Unknown Verified 03/07/19 12:03 Review of Systems ROS Statement: Those systems with pertinent positive or pertinent negative responses have been documented in the HPI. ROS Other: All systems not noted in ROS Statement are negative. 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 History of Any Multi-Drug Resistant Organisms: None Reported Past Surgical History: Cholecystectomy, Heart Catheterization, Orthopedic Surgery Additional Past Surgical History / Comment(s): 04/2017 EGD/colonoscopy, past EGD/colonoscopy, L shoulder tendon surgery, L ankle closed reduction x2 and then ORIF, cardiac caths x2. Hemicolectomy Past Anesthesia/Blood Transfusion Reactions: No Reported Reaction Past Psychological History: No Psychological Hx Reported, Anxiety, Depression Smoking Status: Former smoker Past Alcohol Use History: None Reported Past Drug Use History: None Reported - Past Family History Mother Family Medical History: Cancer, CVA/TIA Additional Family Medical History / Comment(s): Mother of a CVA. She also had breast cancer and a pacemaker. Father Family Medical History: CVA/TIA, Myocardial Infarction ([place]) Additional Family Medical History / Comment(s): Father had a CA at about age 80yrs. He is living. Brother(s) Family Medical History: Congestive Heart Failure (CHF) Additional Family Medical History / Comment(s): CABG General Exam - General Exam Comments Initial Comments: General: The patient is awake and alert, in no distress, and does not appear acutely ill. Eye: Pupils are equal, round and reactive to light, extra-ocular movements are intact. No nystagmus. There is normal conjunctiva bilaterally. No signs of icterus. Ears, nose, mouth and throat: There are moist mucous membranes and no oral lesions. Neck: The neck is supple, there is no tenderness or JVD. Cardiovascular: There is a regular rate and rhythm. No murmur, rub or gallop is appreciated. Respiratory: Lungs are clear to auscultation, respirations are non-labored, breath sounds are equal. No wheezes, stridor, rales, or rhonchi. Gastrointestinal: Soft, non-distended, abdomen minimally tender to palpation, diffuse right sided without masses or organomegaly noted. There is no rebound or guarding present. Bowel sounds are unremarkable. Brown/reddish stool putty likke stool on rectal exam Musculoskeletal: Normal ROM, no tenderness. Strength 5/5. Sensation intact. Radial pulses equal bilaterally 2+. Neurological: A&O x 3. CN II-XII intact grossly, There are no obvious motor or sensory deficits. Coordination appears grossly intact. Speech is normal. Skin: Skin is warm and dry and no rashes or lesions are noted. Psychiatric: Cooperative, appropriate mood & affect, normal judgment. Limitations: no limitations Course Vital Signs 03/07/19 03/07/19 11:47 14:50 Temperature 97.9 F Pulse Rate 66 70 Respiratory 18 18 Rate Blood Pressure 104/64 165/85 O2 Sat by Pulse 99 99 Oximetry Medical Decision Making - Medical Decision Making Very well-appearing 64-year-old female presenting today for chief complaint of rectal bleeding. Patient does have brown blood that appears to have a red tint on rectal examination revealing. Patient denies any large amounts of blood greater than 2 tablespoons. Patient's hemoglobin stable increased from previous values. Patient does not have hypoxia she is not tachycardic. She did have another episode of rectal bleeding in the emergency department. Patient's blood pressure is stable. Abdominal exam does not reveal any rigidity guarding. We contacted Dr. Rangel in regards to admission for observation of patient, he recommended discharge home with clinic f/u on Sunday after discussing the case with my attending provider Dr. Lim. Patient is agreeable with this care plan and return parameters were discussed at length. - Lab Data Result diagrams: 03/07/19 12:56 03/07/19 12:56 Lab Results 03/07/19 03/07/19 03/07/19 Range/Units 12:36 12:56 12:56 WBC 3.8 (3.8-10.6) k/uL RBC 3.32 L (3.80-5.40) m/uL Hgb 11.0 L (11.4-16.0) gm/dL Hct 33.7 L (34.0-46.0) % MCV 101.6 H (80.0-100.0) fL MCH 33.2 (25.0-35.0) pg MCHC 32.7 (31.0-37.0) g/dL RDW 14.1 (11.5-15.5) % Plt Count 282 (150-450) k/uL Neutrophils % 64 % Lymphocytes % 24 % Monocytes % 5 % Eosinophils % 4 % Basophils % 1 % Neutrophils # 2.5 (1.3-7.7) k/uL Lymphocytes # 0.9 L (1.0-4.8) k/uL Monocytes # 0.2 (0-1.0) k/uL Eosinophils # 0.2 (0-0.7) k/uL Basophils # 0.0 (0-0.2) k/uL Macrocytosis Slight APTT 23.1 (22.0-30.0) sec Sodium (137-145) mmol/L Potassium (3.5-5.1) mmol/L Chloride (98-107) mmol/L Carbon Dioxide (22-30) mmol/L Anion Gap mmol/L BUN (7-17) mg/dL Creatinine (0.52-1.04) mg/dL Est GFR (CKD-EPI)AfAm (>60 ml/min/1.73 sqM) Est GFR (CKD-EPI)NonAf (>60 ml/min/1.73 sqM) Glucose (74-99) mg/dL Calcium (8.4-10.2) mg/dL Total Bilirubin (0.2-1.3) mg/dL AST (14-36) U/L ALT (9-52) U/L Alkaline Phosphatase (38-126) U/L Troponin I (0.000-0.034) ng/mL Total Protein (6.3-8.2) g/dL Albumin (3.5-5.0) g/dL Stool Occult Blood Positive H (Negative) 03/07/19 03/07/19 Range/Units 12:56 12:56 WBC (3.8-10.6) k/uL RBC (3.80-5.40) m/uL Hgb (11.4-16.0) gm/dL Hct (34.0-46.0) % MCV (80.0-100.0) fL MCH (25.0-35.0) pg MCHC (31.0-37.0) g/dL RDW (11.5-15.5) % Plt Count (150-450) k/uL Neutrophils % % Lymphocytes % % Monocytes % % Eosinophils % % Basophils % % Neutrophils # (1.3-7.7) k/uL Lymphocytes # (1.0-4.8) k/uL Monocytes # (0-1.0) k/uL Eosinophils # (0-0.7) k/uL Basophils # (0-0.2) k/uL Macrocytosis APTT (22.0-30.0) sec Sodium 139 (137-145) mmol/L Potassium 5.5 H (3.5-5.1) mmol/L Chloride 106 (98-107) mmol/L Carbon Dioxide 27 (22-30) mmol/L Anion Gap 6 mmol/L BUN 46 H (7-17) mg/dL Creatinine 1.22 H (0.52-1.04) mg/dL Est GFR (CKD-EPI)AfAm 55 (>60 ml/min/1.73 sqM) Est GFR (CKD-EPI)NonAf 47 (>60 ml/min/1.73 sqM) Glucose 130 H (74-99) mg/dL Calcium 9.3 (8.4-10.2) mg/dL Total Bilirubin 0.4 (0.2-1.3) mg/dL AST 19 (14-36) U/L ALT 23 (9-52) U/L Alkaline Phosphatase 85 (38-126) U/L Troponin I <0.012 (0.000-0.034) ng/mL Total Protein 6.2 L (6.3-8.2) g/dL Albumin 3.8 (3.5-5.0) g/dL Stool Occult Blood (Negative) - EKG Data EKG Comments: Ventricular rate 73 bpm, NH interval 170 ms, QRS duration 82 ms, QT/QTC 370/7 ms. This is normal sinus with no sinus rhythm. No ST elevation or depression. EKG personally interpreted. Disposition Clinical Impression: Abdominal pain, Serum potassium elevated, Blood in stool Disposition: HOME SELF-CARE Condition: Good Instructions (If sedation given, give patient instructions): Abdominal Pain (ED) Additional Instructions: Please use medication as discussed. Please follow-up with family doctor in the next 2 days and [facility] clinic with Dr. Rangel. Please return to emergency room if the symptoms increase or worsen or for any other concerns. Is patient prescribed a controlled substance at d/c from ED?: No Referrals: Karen Snowden DO [Primary Care Provider] - 1-2 days Reji Rangel MD [STAFF PHYSICIAN] - 1-2 days Time of Disposition: 15:25
[2019-03-07 13:29] LABS: Albumin 3.8 g/dL (3.5-5.0); Calcium 9.3 mg/dL (8.4-10.2); Potassium 5.5 mmol/L (3.5-5.1); Total Bilirubin 0.4 mg/dL (0.2-1.3); Total Protein 6.2 g/dL (6.3-8.2)
[2019-03-07 13:37] LABS: Basophils % (A) 1 %; Eosinophils # (A) 0.2 k/uL (0-0.7); Eosinophils % (A) 4 %; HCT 33.7 % (34.0-46.0); Lymphocytes # (A) 0.9 k/uL (1.0-4.8); Lymphocytes % (A) 24 %; MCH 33.2 pg (25.0-35.0); MCHC 32.7 g/dL (31.0-37.0); MCV 101.6 fL (80.0-100.0); Macrocytosis Slight; Mean Platelet Volume 7.2; Monocytes # (A) 0.2 k/uL (0-1.0); Monocytes % (A) 5 %; Neutrophils # (A) 2.5 k/uL (1.3-7.7); Neutrophils % (A) 64 %; Platelet Count 282 k/uL (150-450); RBC 3.32 m/uL (3.80-5.40); RDW 14.1 % (11.5-15.5); WBC 3.8 k/uL (3.8-10.6)
[2019-03-07] MEDS ORDERED: CALCIUM GLUCONATE 1 GM in SODIUM CHLORIDE 0.9% 100 ML IVPB ONE (14:00)
--- NOTE | 2019-03-07 14:24 | CT ---
EXAMINATION TYPE: CT abdomen pelvis w con DATE OF EXAM: 03/07/2019 HISTORY: Bowel resection 02-12-19. Right sided abdominal pain radiating to back with rectal bleeding. CT DLP: 1002mGycm Automated Exposure Control for Dose Reduction was Utilized. CONTRAST: CT scan of the abdomen and pelvis is performed without oral but with IV Contrast, patient injected wi th 80 mL of Isovue 300. COMPARISON: CT abdomen and pelvis February 11, 2019 FINDINGS: LUNG BASES: No significant abnormality is appreciated. LIVER/GB: Cholecystectomy clip is redemonstrated.. PANCREAS: No significant abnormality is seen. SPLEEN: Some calcifications along the periphery are suspected similar to prior. ADRENALS: No significant abnormality is seen. KIDNEYS: Simple appearing thin-walled 2.5 cm cyst posterior medially lower pole level left kidney del ayed axial image 27. BOWEL: Evaluation of all suboptimal secondary to lack of enteric contrast. No suspicious small or lar ge bowel dilatation. Partial right-sided colectomy changes with sutures mid abdomen there are level o f umbilicus, follow-up anastomosis along superior aspect is identified. Near the more central sutures there is focus of tubular low density axial image 39 of uncertain etiology. Fecal material is seen i n nondistended colon distal to this. UTERUS/ADNEXA: Anteverted uterus. LYMPH NODES: No greater than 1cm abdominal or pelvic lymph nodes are appreciated. OSSEOUS STRUCTURES: Mild to moderate disc space narrowing L4-L5 level with vacuum disc phenomenon. OTHER: No significant additional abnormality is seen. IMPRESSION: Interval partial right hemicolectomy. No bowel obstruction, no obvious new or acute findi ngs seen to account for patient's symptoms of blood per rectum and right-sided pain. Mild fat strandi ng at site of surgery is nonspecific, infectious or inflammatory process at this level is not exclude d.
[2019-03-07 16:14] VITALS: BP 123/78; PULSE 72; TEMP 98
== END 2019-03-07 15:57 | disposition home or self-care (01) ==
LOC: EC 11:46
DX: K92.1 Melena (principal); E87.5 Hyperkalemia; R10.9 Unspecified abdominal pain; I25.10 Atherosclerotic heart disease of native coronary artery without angina pectoris; E78.5 Hyperlipidemia, unspecified; E11.40 Type 2 diabetes mellitus with diabetic neuropathy, unspecified; E11.22 Type 2 diabetes mellitus with diabetic chronic kidney disease; I12.9 Hypertensive chronic kidney disease with stage 1 through stage 4 chronic kidney disease, or unspecified chronic kidney disease; N18.4 Chronic kidney disease, stage 4 (severe); E11.51 Type 2 diabetes mellitus with diabetic peripheral angiopathy without gangrene; Z79.84 Long term (current) use of oral hypoglycemic drugs; Z79.899 Other long term (current) drug therapy; Z88.1 Allergy status to other antibiotic agents; Z88.2 Allergy status to sulfonamides; Z87.891 Personal history of nicotine dependence; Z95.5 Presence of coronary angioplasty implant and graft; Z90.49 Acquired absence of other specified parts of digestive tract
CPT/HCPCS: 36415; 93005; 80053; 84484; 85025; 85730; 82272; 74177; 99285; 96365; 96361; J0610; Q9967

== ENCOUNTER 2019-07-15 02:40 | Emergency (ER) | payer BC ==
[2019-07-15 02:48] VITALS: RESP 18
[2019-07-15] MEDS ORDERED: PANTOPRAZOLE 40 MG/10 ML VIAL IVP STA (02:52)
[2019-07-15] MEDS ORDERED: MORPHINE SULFATE 4 MG/ML SYRINGE IV STA (02:52)
[2019-07-15] MEDS ORDERED: SODIUM CHLORIDE 0.9% 500 ML 500 ML IV STA (02:52)
[2019-07-15] MEDS ORDERED: ONDANSETRON 4 MG/2 ML VIAL IVP STA (02:52)
[2019-07-15] MEDS ORDERED: SODIUM CHLORIDE 0.9% 1,000 ML IV STA (02:52)
--- NOTE | 2019-07-15 02:54 | ED ---
Abdominal Pain HPI - General Chief Complaint: Abdominal Pain Stated Complaint: Stomach on fire Source: patient, family, RN notes reviewed, old records reviewed Mode of arrival: wheelchair Limitations: no limitations - History of Present Illness Initial Comments: This is a 64-year-old female here for evaluation presented for evaluation of abdominal pain. Patient feels acute similar pain to when she had a prior bowel resection. Patient has mild nausea no vomiting pain for a few days now. No fevers she is having bowel movements. No other surgeries no other recent medical illnesses or issues. No travel or sick contacts of family members with similar complaint. MD Complaint: abdominal pain -: days(s) Location: diffuse, epigastric, suprapubic Radiation: epigastric, suprapubic Migration to: epigastric, suprapubic Severity: moderate Severity scale (1-10): 7 Quality: stabbing, aching Consistency: constant Improves With: nothing Worsens With: nothing Associated Symptoms: nausea, vomiting - Related Data Home Medications Medication Instructions Recorded Confirmed Sucralfate [Carafate] 1 gram PO ACHS 05/10/17 03/07/19 Atorvastatin [Lipitor] 20 mg PO HS 07/15/17 03/07/19 Nitroglycerin Sl Tabs [Nitrostat] 0.4 mg SUBLINGUAL Q5M PRN 02/21/18 03/07/19 Docusate [Colace] 100 mg PO BID 02/11/19 03/07/19 Losartan Potassium 100 mg PO DAILY 02/11/19 03/07/19 Magnesium 400 mg PO DAILY 02/11/19 03/07/19 Montelukast [Singulair] 10 mg PO W/SUPPER 02/11/19 03/07/19 Pioglitazone [Actos] 30 mg PO DAILY 02/11/19 03/07/19 traZODone HCL 50 mg PO HS 02/11/19 03/07/19 Cyclobenzaprine HCl 5 mg PO TID 03/07/19 03/07/19 Previous Rx's Medication Instructions Recorded Aspirin 81 mg PO DAILY chew 05/12/17 Allergies Allergy/AdvReac Type Severity Reaction Status Date / Time sulfamethoxazole Allergy Unknown Verified 07/15/19 02:48 [From Bactrim] trimethoprim [From Bactrim] Allergy Unknown Verified 07/15/19 02:48 Review of Systems ROS Statement: Those systems with pertinent positive or pertinent negative responses have been documented in the HPI. ROS Other: All systems not noted in ROS Statement are negative. 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 History of Any Multi-Drug Resistant Organisms: None Reported Past Surgical History: Cholecystectomy, Heart Catheterization, Orthopedic Surgery Additional Past Surgical History / Comment(s): 04/2017 EGD/colonoscopy, past EGD/colonoscopy, L shoulder tendon surgery, L ankle closed reduction x2 and then ORIF, cardiac caths x2. Hemicolectomy Past Anesthesia/Blood Transfusion Reactions: No Reported Reaction Past Psychological History: Anxiety, Depression Smoking Status: Former smoker Past Alcohol Use History: None Reported Past Drug Use History: None Reported - Past Family History Mother Family Medical History: Cancer, CVA/TIA Additional Family Medical History / Comment(s): Mother of a CVA. She also had breast cancer and a pacemaker. Father Family Medical History: CVA/TIA, Myocardial Infarction ([place]) Additional Family Medical History / Comment(s): Father had a [place] at about age 80yrs. He is living. Brother(s) Family Medical History: Congestive Heart Failure (CHF) Additional Family Medical History / Comment(s): CABG General Exam Limitations: no limitations General appearance: alert, in no apparent distress Head exam: Present: atraumatic, normocephalic, normal inspection Eye exam: Present: normal appearance, PERRL, EOMI. Absent: scleral icterus, conjunctival injection, periorbital swelling ENT exam: Present: normal exam, mucous membranes moist Neck exam: Present: normal inspection. Absent: tenderness, meningismus, lymphadenopathy Respiratory exam: Present: normal lung sounds bilaterally. Absent: respiratory distress, wheezes, rales, rhonchi, stridor Cardiovascular Exam: Present: regular rate, normal rhythm, normal heart sounds. Absent: systolic murmur, diastolic murmur, rubs, gallop, clicks GI/Abdominal exam: Present: soft, normal bowel sounds. Absent: distended, tenderness, guarding, rebound, rigid Extremities exam: Present: normal inspection, full ROM, normal capillary refill. Absent: tenderness, pedal edema, joint swelling, calf tenderness Back exam: Present: normal inspection Neurological exam: Present: alert, oriented X3, CN II-XII intact Psychiatric exam: Present: normal affect, normal mood Skin exam: Present: warm, dry, intact, normal color. Absent: rash Course Vital Signs 07/15/19 07/15/19 07/15/19 02:45 04:00 05:02 Temperature 98.0 F Pulse Rate 84 87 90 Respiratory 18 18 18 Rate Blood Pressure 143/72 143/97 145/69 O2 Sat by Pulse 99 97 97 Oximetry 07/15/19 06:03 Temperature 98 F Pulse Rate 77 Respiratory 18 Rate Blood Pressure 137/65 O2 Sat by Pulse 96 Oximetry - Reevaluation(s) Reevaluation #1: Medical record is reviewed Patient's pain is controlled Medical Decision Making - Medical Decision Making 64 female here for eval [place] pain. Patient does have new hernia but does not seem to be a significant hernia. Otherwise no significant acute disease a dull pain is currently controlled patient can be discharged home - Lab Data Result diagrams: 07/15/19 03:47 07/15/19 03:47 Lab Results 07/15/19 07/15/19 07/15/19 Range/Units 03:47 03:47 03:47 WBC (3.8-10.6) k/uL RBC (3.80-5.40) m/uL Hgb (11.4-16.0) gm/dL Hct (34.0-46.0) % MCV (80.0-100.0) fL MCH (25.0-35.0) pg MCHC (31.0-37.0) g/dL RDW (11.5-15.5) % Plt Count (150-450) k/uL Neutrophils % % Lymphocytes % % Monocytes % % Eosinophils % % Basophils % % Neutrophils # (1.3-7.7) k/uL Lymphocytes # (1.0-4.8) k/uL Monocytes # (0-1.0) k/uL Eosinophils # (0-0.7) k/uL Basophils # (0-0.2) k/uL PT 9.7 (9.0-12.0) sec INR 0.9 (<1.2) APTT 21.9 L (22.0-30.0) sec Sodium (137-145) mmol/L Potassium (3.5-5.1) mmol/L Chloride (98-107) mmol/L Carbon Dioxide (22-30) mmol/L Anion Gap mmol/L BUN (7-17) mg/dL Creatinine (0.52-1.04) mg/dL Est GFR (CKD-EPI)AfAm (>60 ml/min/1.73 sqM) Est GFR (CKD-EPI)NonAf (>60 ml/min/1.73 sqM) Glucose (74-99) mg/dL Plasma Lactic Acid [place] 0.9 (0.7-2.0) mmol/L Calcium (8.4-10.2) mg/dL Total Bilirubin (0.2-1.3) mg/dL AST (14-36) U/L ALT (4-34) U/L Alkaline Phosphatase (38-126) U/L Creatine Kinase (30-135) U/L Troponin I <0.012 (0.000-0.034) ng/mL Total Protein (6.3-8.2) g/dL Albumin (3.5-5.0) g/dL Amylase (30-110) U/L Lipase (23-300) U/L Urine Color Urine Appearance (Clear) Urine pH (5.0-8.0) Ur Specific [place] (1.001-1.035) Urine Protein (Negative) Urine Glucose (UA) (Negative) Urine Ketones (Negative) Urine Blood (Negative) Urine Nitrite (Negative) Urine Bilirubin (Negative) Urine Urobilinogen (<2.0) mg/dL Ur Leukocyte Esterase (Negative) Urine RBC (0-5) /hpf Urine WBC (0-5) /hpf Ur Squamous Epith Cells (0-4) /hpf Urine Bacteria (None) /hpf Urine Mucus (None) /hpf Acetone, Qual (Negative) 07/15/19 07/15/19 07/15/19 Range/Units 03:47 03:47 03:58 WBC 7.3 (3.8-10.6) k/uL RBC 4.20 (3.80-5.40) m/uL Hgb 13.4 (11.4-16.0) gm/dL Hct 41.0 (34.0-46.0) % MCV 97.5 (80.0-100.0) fL MCH 31.9 (25.0-35.0) pg MCHC 32.8 (31.0-37.0) g/dL RDW 13.0 (11.5-15.5) % Plt Count 306 (150-450) k/uL Neutrophils % 80 % Lymphocytes % 13 % Monocytes % 4 % Eosinophils % 1 % Basophils % 1 % Neutrophils # 5.8 (1.3-7.7) k/uL Lymphocytes # 1.0 (1.0-4.8) k/uL Monocytes # 0.3 (0-1.0) k/uL Eosinophils # 0.1 (0-0.7) k/uL Basophils # 0.0 (0-0.2) k/uL PT (9.0-12.0) sec INR (<1.2) APTT (22.0-30.0) sec Sodium 138 (137-145) mmol/L Potassium 5.2 H (3.5-5.1) mmol/L Chloride 107 (98-107) mmol/L Carbon Dioxide 26 (22-30) mmol/L Anion Gap 5 mmol/L BUN 32 H (7-17) mg/dL Creatinine 0.95 (0.52-1.04) mg/dL Est GFR (CKD-EPI)AfAm 74 (>60 ml/min/1.73 sqM) Est GFR (CKD-EPI)NonAf 64 (>60 ml/min/1.73 sqM) Glucose 171 H (74-99) mg/dL Plasma Lactic Acid [place] (0.7-2.0) mmol/L Calcium 9.1 (8.4-10.2) mg/dL Total Bilirubin 0.6 (0.2-1.3) mg/dL AST 33 (14-36) U/L ALT 16 (4-34) U/L Alkaline Phosphatase 114 (38-126) U/L Creatine Kinase 49 (30-135) U/L Troponin I (0.000-0.034) ng/mL Total Protein 7.0 (6.3-8.2) g/dL Albumin 4.1 (3.5-5.0) g/dL Amylase 61 (30-110) U/L Lipase 253 (23-300) U/L Urine Color Yellow Urine Appearance Cloudy H (Clear) Urine pH 5.0 (5.0-8.0) Ur Specific [place] 1.024 (1.001-1.035) Urine Protein Trace H (Negative) Urine Glucose (UA) Negative (Negative) Urine Ketones Negative (Negative) Urine Blood Small H (Negative) Urine Nitrite Negative (Negative) Urine Bilirubin Negative (Negative) Urine Urobilinogen <2.0 (<2.0) mg/dL Ur Leukocyte Esterase Large H (Negative) Urine RBC 4 (0-5) /hpf Urine WBC 18 H (0-5) /hpf Ur Squamous Epith Cells 1 (0-4) /hpf Urine Bacteria Few H (None) /hpf Urine Mucus Occasional H (None) /hpf Acetone, Qual Negative (Negative) - Radiology Data Radiology results: report reviewed (CT abdominal pelvis is negative for significant disease abdominal pain is controlled), image reviewed Disposition Clinical Impression: Abdominal pain Disposition: HOME SELF-CARE Condition: Good Instructions (If sedation given, give patient instructions): Abdominal Pain (ED) Is patient prescribed a controlled substance at d/c from ED?: No Referrals: Karen Snowden DO [Primary Care Provider] - 1-2 days
[2019-07-15 03:58] LABS: Basophils % (A) 1 %; Eosinophils # (A) 0.1 k/uL (0-0.7); Eosinophils % (A) 1 %; HGB 13.4 gm/dL (11.4-16.0); Lymphocytes % (A) 13 %; MCH 31.9 pg (25.0-35.0); MCHC 32.8 g/dL (31.0-37.0); MCV 97.5 fL (80.0-100.0); Mean Platelet Volume 7.4; Monocytes # (A) 0.3 k/uL (0-1.0); Monocytes % (A) 4 %; Neutrophils # (A) 5.8 k/uL (1.3-7.7); Neutrophils % (A) 80 %; Platelet Count 306 k/uL (150-450); WBC 7.3 k/uL (3.8-10.6)
[2019-07-15 04:07] LABS: African American GFR (CKD) 74 (>60 ml/min/1.73 sqM); Albumin 4.1 g/dL (3.5-5.0); Amylase 61 U/L (30-110); Anion Gap 5 mmol/L; Calcium 9.1 mg/dL (8.4-10.2); Carbon Dioxide 26 mmol/L (22-30); Chloride 107 mmol/L (98-107); Creatine Kinase 49 U/L (30-135); Glucose 171 mg/dL (74-99); Non-African American GFR(CKD) 64 (>60 ml/min/1.73 sqM); Sodium 138 mmol/L (137-145); Total Bilirubin 0.6 mg/dL (0.2-1.3)
[2019-07-15 04:17] LABS: INR 0.9 (<1.2); Partial Thromboplastin Time 21.9 sec (22.0-30.0); Prothrombin Time 9.7 sec (9.0-12.0)
[2019-07-15 04:17] LABS: Appearance,Urine Cloudy (Clear); Bacteria,Urine Few /hpf; Bilirubin,Urine Negative (Negative); Blood,Urine Small (Negative); Color,Urine Yellow; Glucose,Urine (UA) Negative (Negative); Ketones,Urine Negative (Negative); Leukocyte Esterase,Urine Large (Negative); Mucus,Urine Occasional /hpf; Nitrite,Urine Negative (Negative); Protein,Urine Trace (Negative); RBC,Urine 4 /hpf (0-5); Specific Gravity,Urine 1.024 (1.001-1.035); Squamous Epithelial Cell,Urine 1 /hpf (0-4); Urobilinogen,Urine <2.0 mg/dL (<2.0); WBC,Urine 18 /hpf (0-5)
[2019-07-15 04:18] LABS: ALT 16 U/L (4-34); AST 33 U/L (14-36); Alkaline Phosphatase 114 U/L (38-126); Blood Urea Nitrogen 32 mg/dL (7-17); Potassium 5.2 mmol/L (3.5-5.1)
--- NOTE | 2019-07-15 04:58 | CT ---
EXAMINATION TYPE: CT abdomen pelvis w con DATE OF EXAM: 07/15/2019 COMPARISON: 03/07/2019 HISTORY: Epigastric pain CT DLP: 1038.1 mGycm Automated exposure control for dose reduction was used. CONTRAST: Performed with IV Contrast, patient injected with 100 mL of Isovue 300. Multiple axial sections were obtained from the diaphragm to the floor the pelvis with intravenous con trast. Lung bases are clear. There is no pleural effusion. There is no pericardial effusion. Heart is border line enlarged. There are clips from cholecystectomy. There are calcified granulomata in the spleen. Liver shows no f ocal defect. Bile ducts are not dilated. The stomach is intact. There is no pancreatic mass. There is no adrenal mass. Kidneys show satisfactory contrast opacification. There is no hydronephrosi s. There is 2.5 cm cortical cyst posterior left kidney. Ureters are not dilated. Delayed images show normal renal excretion. There is no retroperitoneal adenopathy. Ureters are not dilated. There is bro ad-based umbilical hernia that contains fat and bowel. There is no incarceration. There is previous i ntestinal surgery in the anterior abdomen. There is no evidence of a bowel obstruction. There is no mesenteric edema. There is no ascites or dayana e air. The bladder distends smoothly. There is no pelvic mass. There is no inguinal hernia. There is apparen t right hemicolectomy. Bony structures are intact. I see no compression fracture in the lumbar spine. Bony pelvis is intact. IMPRESSION: There is right hemicolectomy. No evidence of a bowel obstruction. No free air. Broad-based umbilical hernia appears new compared to old exam. Stable left renal cortical cyst.
[2019-07-15 06:04] VITALS: BP 137/65; PULSE 77; TEMP 98
== END 2019-07-15 06:04 | disposition home or self-care (01) ==
LOC: EC 02:40
DX: R10.84 Generalized abdominal pain (principal); R10.13 Epigastric pain; R10.30 Lower abdominal pain, unspecified; R11.2 Nausea with vomiting, unspecified; E11.40 Type 2 diabetes mellitus with diabetic neuropathy, unspecified; E78.5 Hyperlipidemia, unspecified; I10 Essential (primary) hypertension; E11.22 Type 2 diabetes mellitus with diabetic chronic kidney disease; N18.4 Chronic kidney disease, stage 4 (severe); E11.51 Type 2 diabetes mellitus with diabetic peripheral angiopathy without gangrene; Z79.84 Long term (current) use of oral hypoglycemic drugs; Z79.899 Other long term (current) drug therapy; Z88.1 Allergy status to other antibiotic agents; Z88.2 Allergy status to sulfonamides; Z87.891 Personal history of nicotine dependence; Z90.49 Acquired absence of other specified parts of digestive tract
CPT/HCPCS: 36415; 80053; 82150; 82550; 82009; 83605; 83690; 84484; 85025; 85610; 85730; 81001; 87086; 74177; 99284; 96374; 96375 ×2; 96361 ×2; J2270; J2405; C9113; Q9967

== ENCOUNTER → 2019-08-26 | Outpatient (CLI) | payer BC ==
[2019-08-26 15:31] LABS: Basophils % (A) 1 %; Eosinophils # (A) 0.1 k/uL (0-0.7); Eosinophils % (A) 2 %; HCT 43.3 % (34.0-46.0); HGB 13.5 gm/dL (11.4-16.0); Lymphocytes # (A) 1.2 k/uL (1.0-4.8); Lymphocytes % (A) 24 %; MCH 30.5 pg (25.0-35.0); MCHC 31.1 g/dL (31.0-37.0); MCV 98.2 fL (80.0-100.0); Mean Platelet Volume 7.4; Monocytes # (A) 0.2 k/uL (0-1.0); Monocytes % (A) 5 %; Neutrophils # (A) 3.3 k/uL (1.3-7.7); Neutrophils % (A) 67 %; Platelet Count 283 k/uL (150-450); RBC 4.41 m/uL (3.80-5.40); RDW 12.9 % (11.5-15.5)
== END | disposition home or self-care (01) ==
LOC: LABPAT 14:44
PROVIDERS: ATTEND Surgery
DX: Z01.812 Encounter for preprocedural laboratory examination (principal); K43.2 Incisional hernia without obstruction or gangrene
CPT/HCPCS: 36415; 85025

== ENCOUNTER 2019-08-31 08:02 | Emergency (ER) | payer BC ==
[2019-08-31 08:20] VITALS: RESP 18; TEMP 97.4
[2019-08-31] MEDS ORDERED: SODIUM CHLORIDE 0.9% 1,000 ML IV STA (08:34)
[2019-08-31] MEDS ORDERED: METOCLOPRAMIDE 5 MG/ML 2 ML VIAL IVP STA (08:34)
[2019-08-31] MEDS ORDERED: diphenhydrAMINE 50 MG/ML 1 ML VIAL IVP STA (08:34)
[2019-08-31] MEDS ORDERED: MAG HYDROX/AL HYDROX/SIMETH 30 ML, HYOSCYAMINE ELIXIR 10 ML PO STA ×2 (08:35)
[2019-08-31] MEDS ORDERED: FAMOTIDINE 20 MG/2 ML VIAL IV STA (08:35)
[2019-08-31 09:24] LABS: Basophils # (A) 0.1 k/uL (0-0.2); Basophils % (A) 1 %; Calcium 9.2 mg/dL (8.4-10.2); Eosinophils # (A) 0.1 k/uL (0-0.7); Eosinophils % (A) 1 %; HCT 43.1 % (34.0-46.0); HGB 13.6 gm/dL (11.4-16.0); Lymphocytes % (A) 20 %; MCH 30.8 pg (25.0-35.0); MCHC 31.6 g/dL (31.0-37.0); MCV 97.4 fL (80.0-100.0); Mean Platelet Volume 8.2; Monocytes # (A) 0.2 k/uL (0-1.0); Monocytes % (A) 5 %; Neutrophils # (A) 3.3 k/uL (1.3-7.7); Neutrophils % (A) 71 %; Platelet Count 284 k/uL (150-450); RBC 4.43 m/uL (3.80-5.40); Total Bilirubin 0.5 mg/dL (0.2-1.3); Total Protein 6.9 g/dL (6.3-8.2); WBC 4.7 k/uL (3.8-10.6)
[2019-08-31 09:25] LABS: Appearance,Urine Cloudy (Clear); Bacteria,Urine Rare /hpf; Bilirubin,Urine Negative (Negative); Blood,Urine Trace (Negative); Color,Urine Yellow; Glucose,Urine (UA) Negative (Negative); Hyaline Casts,Urine 3 /lpf (0-2); Ketones,Urine Negative (Negative); Leukocyte Esterase,Urine Trace (Negative); Mucus,Urine Rare /hpf; Nitrite,Urine Negative (Negative); Protein,Urine Negative (Negative); RBC,Urine 3 /hpf (0-5); Specific Gravity,Urine 1.021 (1.001-1.035); Squamous Epithelial Cell,Urine 2 /hpf (0-4); Urobilinogen,Urine <2.0 mg/dL (<2.0); WBC,Urine 3 /hpf (0-5)
[2019-08-31] MEDS ORDERED: KETOROLAC 30 MG/ML 1 ML VIAL IVP STA (09:25)
[2019-08-31] MEDS ORDERED: ONDANSETRON 4 MG/2 ML VIAL IVP STA (09:30)
[2019-08-31] MEDS ORDERED: MORPHINE SULFATE 4 MG/ML SYRINGE IVP STA (09:30)
--- NOTE | 2019-08-31 09:33 | ED ---
Abdominal Pain HPI - General Chief Complaint: Abdominal Pain Stated Complaint: Abd Pain,NVD Time Seen by Provider: 08/31/19 08:21 Source: patient, RN notes reviewed Mode of arrival: ambulatory Limitations: no limitations - History of Present Illness Initial Comments: This a 64-year-old female presents emergency department to complaint of upper abdominal pain. Patient states started a few days ago worsened overnight. Patient states she cannot get comfortable. Patient states she has a burning, twisting sensation in her abdomen. Patient does admit that she had an episode of vomiting, has had a large amount of diarrhea denies any melena or hematoc hezia. Patient denies hematemesis or coffee-ground emesis patient states she is scheduled for surgery in a few days with Dr. Rangel for hernia repair. Patient had a prior cholecystectomy. Patient reports no fevers or chills. He has no current complaints of chest pain or shortness of breath. - Related Data Home Medications Medication Instructions Recorded Confirmed Sucralfate [Carafate] 1 gram PO ACHS 05/10/17 03/07/19 Atorvastatin [Lipitor] 20 mg PO HS 07/15/17 03/07/19 Nitroglycerin Sl Tabs [Nitrostat] 0.4 mg SUBLINGUAL Q5M PRN 02/21/18 03/07/19 Docusate [Colace] 100 mg PO BID 02/11/19 03/07/19 Losartan Potassium 100 mg PO DAILY 02/11/19 03/07/19 Magnesium 400 mg PO DAILY 02/11/19 03/07/19 Montelukast [Singulair] 10 mg PO W/SUPPER 02/11/19 03/07/19 Pioglitazone [Actos] 30 mg PO DAILY 02/11/19 03/07/19 traZODone HCL 50 mg PO HS 02/11/19 03/07/19 Cyclobenzaprine HCl 5 mg PO TID 03/07/19 03/07/19 Previous Rx's Medication Instructions Recorded Aspirin 81 mg PO DAILY chew 05/12/17 Dicyclomine [Bentyl] 20 mg PO TID #30 tablet 08/31/19 Ondansetron Odt [Zofran Odt] 4 mg PO Q8HR PRN #10 tab 08/31/19 Allergies Allergy/AdvReac Type Severity Reaction Status Date / Time sulfamethoxazole Allergy Unknown Verified 08/31/19 08:20 [From Bactrim] trimethoprim [From Bactrim] Allergy Unknown Verified 08/31/19 08:20 Review of Systems ROS Statement: Those systems with pertinent positive or pertinent negative responses have been documented in the HPI. ROS Other: All systems not noted in ROS Statement are negative. 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 History of Any Multi-Drug Resistant Organisms: None Reported Past Surgical History: Cholecystectomy, Heart Catheterization, Orthopedic Surgery Additional Past Surgical History / Comment(s): 04/2017 EGD/colonoscopy, past EGD/colonoscopy, L shoulder tendon surgery, L ankle closed reduction x2 and then ORIF, cardiac caths x2. Hemicolectomy Past Anesthesia/Blood Transfusion Reactions: No Reported Reaction Past Psychological History: Anxiety, Depression Smoking Status: Former smoker Past Alcohol Use History: None Reported Past Drug Use History: None Reported - Past Family History Mother Family Medical History: Cancer, CVA/TIA Additional Family Medical History / Comment(s): Mother of a CVA. She also had breast cancer and a pacemaker. Father Family Medical History: CVA/TIA, Myocardial Infarction ([place]) Additional Family Medical History / Comment(s): Father had a [place] at about age 80yrs. He is living. Brother(s) Family Medical History: Congestive Heart Failure (CHF) Additional Family Medical History / Comment(s): CABG General Exam Limitations: no limitations General appearance: alert, in no apparent distress Head exam: Present: atraumatic, normocephalic, normal inspection Eye exam: Present: normal appearance, PERRL, EOMI. Absent: scleral icterus, conjunctival injection, periorbital swelling ENT exam: Present: normal exam, normal oropharynx, mucous membranes moist Neck exam: Present: normal inspection, full ROM. Absent: tenderness, meningismus, lymphadenopathy Respiratory exam: Present: normal lung sounds bilaterally. Absent: respiratory distress, wheezes, rales, rhonchi, stridor Cardiovascular Exam: Present: regular rate, normal rhythm, normal heart sounds. Absent: systolic murmur, diastolic murmur, rubs, gallop, clicks GI/Abdominal exam: Present: soft, tenderness (Mild to moderate epigastric with mild diffuse), normal bowel sounds. Absent: distended, guarding, rebound, rigid Back exam: Absent: CVA tenderness (R), CVA tenderness (L) Neurological exam: Present: alert, oriented X3, CN II-XII intact Psychiatric exam: Present: normal affect, normal mood Skin exam: Present: warm, dry, intact, normal color. Absent: rash Course Vital Signs 08/31/19 08:17 Temperature 97.4 F L Pulse Rate 79 Respiratory 18 Rate Blood Pressure 154/85 O2 Sat by Pulse 98 Oximetry Medical Decision Making - Medical Decision Making Patient present for epigastric discomfort which has been ongoing. Patient has had some nausea vomiting diarrhea. X-ray showed concerns for possible partial obstruction CT is obtained which shows evidence of enteritis consistent with her symptoms. Patient's pain is improved to be discharged in stable condition. - Lab Data Result diagrams: 08/31/19 09:02 08/31/19 09:02 Lab Results 08/31/19 08/31/19 08/31/19 Range/Units 09:02 09:02 09:02 WBC 4.7 (3.8-10.6) k/uL RBC 4.43 (3.80-5.40) m/uL Hgb 13.6 (11.4-16.0) gm/dL Hct 43.1 (34.0-46.0) % MCV 97.4 (80.0-100.0) fL MCH 30.8 (25.0-35.0) pg MCHC 31.6 (31.0-37.0) g/dL RDW 13.0 (11.5-15.5) % Plt Count 284 (150-450) k/uL Neutrophils % 71 % Lymphocytes % 20 % Monocytes % 5 % Eosinophils % 1 % Basophils % 1 % Neutrophils # 3.3 (1.3-7.7) k/uL Lymphocytes # 1.0 (1.0-4.8) k/uL Monocytes # 0.2 (0-1.0) k/uL Eosinophils # 0.1 (0-0.7) k/uL Basophils # 0.1 (0-0.2) k/uL Sodium 138 (137-145) mmol/L Potassium 5.2 H (3.5-5.1) mmol/L Chloride 110 H (98-107) mmol/L Carbon Dioxide 19 L (22-30) mmol/L Anion Gap 9 mmol/L BUN 25 H (7-17) mg/dL Creatinine 0.89 (0.52-1.04) mg/dL Est GFR (CKD-EPI)AfAm 80 (>60 ml/min/1.73 sqM) Est GFR (CKD-EPI)NonAf 69 (>60 ml/min/1.73 sqM) Glucose 135 H (74-99) mg/dL Calcium 9.2 (8.4-10.2) mg/dL Total Bilirubin 0.5 (0.2-1.3) mg/dL AST 34 (14-36) U/L ALT 18 (4-34) U/L Alkaline Phosphatase 105 (38-126) U/L Troponin I <0.012 (0.000-0.034) ng/mL Total Protein 6.9 (6.3-8.2) g/dL Albumin 4.0 (3.5-5.0) g/dL Amylase 56 (30-110) U/L Lipase 192 (23-300) U/L Urine Color Urine Appearance (Clear) Urine pH (5.0-8.0) Ur Specific [place] (1.001-1.035) Urine Protein (Negative) Urine Glucose (UA) (Negative) Urine Ketones (Negative) Urine Blood (Negative) Urine Nitrite (Negative) Urine Bilirubin (Negative) Urine Urobilinogen (<2.0) mg/dL Ur Leukocyte Esterase (Negative) Urine RBC (0-5) /hpf Urine WBC (0-5) /hpf Ur Squamous Epith Cells (0-4) /hpf Urine Bacteria (None) /hpf Hyaline Casts (0-2) /lpf Urine Mucus (None) /hpf 08/31/19 Range/Units 09:03 WBC (3.8-10.6) k/uL RBC (3.80-5.40) m/uL Hgb (11.4-16.0) gm/dL Hct (34.0-46.0) % MCV (80.0-100.0) fL MCH (25.0-35.0) pg MCHC (31.0-37.0) g/dL RDW (11.5-15.5) % Plt Count (150-450) k/uL Neutrophils % % Lymphocytes % % Monocytes % % Eosinophils % % Basophils % % Neutrophils # (1.3-7.7) k/uL Lymphocytes # (1.0-4.8) k/uL Monocytes # (0-1.0) k/uL Eosinophils # (0-0.7) k/uL Basophils # (0-0.2) k/uL Sodium (137-145) mmol/L Potassium (3.5-5.1) mmol/L Chloride (98-107) mmol/L Carbon Dioxide (22-30) mmol/L Anion Gap mmol/L BUN (7-17) mg/dL Creatinine (0.52-1.04) mg/dL Est GFR (CKD-EPI)AfAm (>60 ml/min/1.73 sqM) Est GFR (CKD-EPI)NonAf (>60 ml/min/1.73 sqM) Glucose (74-99) mg/dL Calcium (8.4-10.2) mg/dL Total Bilirubin (0.2-1.3) mg/dL AST (14-36) U/L ALT (4-34) U/L Alkaline Phosphatase (38-126) U/L Troponin I (0.000-0.034) ng/mL Total Protein (6.3-8.2) g/dL Albumin (3.5-5.0) g/dL Amylase (30-110) U/L Lipase (23-300) U/L Urine Color Yellow Urine Appearance Cloudy H (Clear) Urine pH 5.0 (5.0-8.0) Ur Specific [place] 1.021 (1.001-1.035) Urine Protein Negative (Negative) Urine Glucose (UA) Negative (Negative) Urine Ketones Negative (Negative) Urine Blood Trace H (Negative) Urine Nitrite Negative (Negative) Urine Bilirubin Negative (Negative) Urine Urobilinogen <2.0 (<2.0) mg/dL Ur Leukocyte Esterase Trace H (Negative) Urine RBC 3 (0-5) /hpf Urine WBC 3 (0-5) /hpf Ur Squamous Epith Cells 2 (0-4) /hpf Urine Bacteria Rare H (None) /hpf Hyaline Casts 3 H (0-2) /lpf Urine Mucus Rare H (None) /hpf - EKG Data -: EKG Interpreted by Me EKG Comments: EKG performed at 8:47 normal sinus rhythm rate of 73 MO 168 QRS 84 QT status QTC 360/405 Disposition Clinical Impression: Abdominal pain, Enteritis Disposition: HOME SELF-CARE Condition: Stable Instructions (If sedation given, give patient instructions): Abdominal Pain (ED), Enteritis (ED) Additional Instructions: Please return to the Emergency Department if symptoms worsen or any other concerns. Prescriptions: Dicyclomine [Bentyl] 20 mg PO TID #30 tablet Ondansetron Odt [Zofran Odt] 4 mg PO Q8HR PRN #10 tab PRN Reason: Nausea Is patient prescribed a controlled substance at d/c from ED?: No Referrals: Karen Snowden DO [Primary Care Provider] - 1-2 days Time of Disposition: 11:08
[2019-08-31 09:34] LABS: Potassium 5.2 mmol/L (3.5-5.1)
--- NOTE | 2019-08-31 10:06 | XR ---
EXAMINATION TYPE: XR KUB DATE OF EXAM: 08/31/2019 Comparison: 02/11/2019. Clinical History: 64-year-old female pain Findings: No evidence for free intraperitoneal air. Lung bases are clear. Scattered air-fluid levels. A few sma ll bowel loops mid and right side of the abdomen are dilated up to 4.0 cm. Paucity of colonic air. Ch olecystectomy clips. Impression: Scattered air-fluid levels and a few dilated small bowel loops measuring up to 4.0 cm. Given paucity of colonic air, early small bowel obstruction is not excluded.
--- NOTE | 2019-08-31 11:05 | CT ---
EXAMINATION TYPE: CT abdomen pelvis w con DATE OF EXAM: 08/31/2019 COMPARISON: 07/15/2019 HISTORY: 64-year-old female with upper abdominal pain, rule out obstruction. TECHNIQUE: Contiguous axial scanning of the abdomen and pelvis following administration of 100 ml Iso tara 300 IV contrast. Delayed images through the kidneys and coronal/sagittal reconstructions perform ed. CT DLP: 1291.4 mGycm Automated exposure control for dose reduction was used. FINDINGS: LUNG BASES: Heart borderline sized. Lung bases clear without pleural effusion. Tiny hiatal hernia. LIVER/GB: No significant abnormality is appreciated. Gallbladder surgically absent. PANCREAS: No significant abnormality is seen. SPLEEN: Tiny anterior splenule. A couple foci of parenchymal calcification, probably prior granulomat ous disease. ADRENALS: No significant abnormality is seen. KIDNEYS: 2.9 cm posterior left renal cyst. No hydronephrosis. LYMPH NODES: Small fatty umbilical hernia. No mesenteric or retroperitoneal lymphadenopathy. REPRODUCTIVE ORGANS: Uterus anteverted. Right ovary not clearly delineated from adjacent bowel loops. Left ovary seems to show a 1.6 cm cystic lesion within versus 1.1 cm on 07/15/2019. Ultrasound follow -up is recommended to reassess. No abnormal fluid collection the pelvis. Bladder partially distended. No pelvic lymphadenopathy. BOWEL: No small bowel dilatation by CT no prominent fluid filled small bowel loops are present throu ghout. Prior right hemicolectomy with ileocolonic anastomosis at the level of the proximal transverse colon. Some additional scattered liquid stool is present particularly in the distal half of the do sverse colon. No pericolic inflammatory change. BONES: Degenerative changes pubic symphysis. Mild degenerative change both hips and right SI joint. Moderate degenerative disc disease mid to lower lumbar spine. Facet arthropathy lower lumbar spine. IMPRESSION: 1. Prior partial right hemicolectomy with ileocolonic anastomosis at the level of the proximal transv erse colon. 2. Nonobstructive bowel gas pattern. There are prominent fluid-filled small bowel loops throughout wi th stool in the transverse colon. Correlate for enteritis. 3. Cystic lesion of the left ovary measures 1.6 cm versus 1.1 cm on 07/15/2019. Abnormal in a postmeno pausal female. Nonemergent follow-up pelvic ultrasound evaluation recommended to further characterize and determine subsequent follow-up recommendations.
[2019-08-31 11:33] VITALS: BP 123/74; PULSE 86
== END 2019-08-31 11:11 | disposition home or self-care (01) ==
LOC: EC 08:02
DX: K52.9 Noninfective gastroenteritis and colitis, unspecified (principal); I25.10 Atherosclerotic heart disease of native coronary artery without angina pectoris; N18.4 Chronic kidney disease, stage 4 (severe); E11.22 Type 2 diabetes mellitus with diabetic chronic kidney disease; K21.9 Gastro-esophageal reflux disease without esophagitis; E78.5 Hyperlipidemia, unspecified; I12.9 Hypertensive chronic kidney disease with stage 1 through stage 4 chronic kidney disease, or unspecified chronic kidney disease; M19.90 Unspecified osteoarthritis, unspecified site; E11.42 Type 2 diabetes mellitus with diabetic polyneuropathy; E11.51 Type 2 diabetes mellitus with diabetic peripheral angiopathy without gangrene; Q15.9 Congenital malformation of eye, unspecified; R21 Rash and other nonspecific skin eruption; F32.9 Major depressive disorder, single episode, unspecified; F41.9 Anxiety disorder, unspecified; Z87.891 Personal history of nicotine dependence; Z88.2 Allergy status to sulfonamides; Z79.84 Long term (current) use of oral hypoglycemic drugs; Z79.899 Other long term (current) drug therapy; Z87.11 Personal history of peptic ulcer disease; Z90.49 Acquired absence of other specified parts of digestive tract; Z96.698 Presence of other orthopedic joint implants
CPT/HCPCS: 36415; 93005; 80053; 82150; 83690; 84484; 85025; 81001; 74018; 74177; 99285; 96374; 96375 ×5; 96361 ×3; J2270; J1200; J2765; J2405; J1885; Q9967

== ENCOUNTER 2019-09-03 10:59 | Day surgery (SDC) | payer BC ==
[2019-09-01 15:30] VITALS: BMI 32.5
[~2019-09-03 10:59] MED LIST changes: +DEXAMETHASONE SOD PHOSPHATE 10 MG/ML 1 ML VIAL IV ONE; +HEPARIN SODIUM,PORCINE 5,000 UNIT/ML 1 ML VIAL SQ ONE; +HYDROmorphone 0.5 MG/0.5 ML SYRINGE IVP PRN; -LIDOCAINE 1% 20 ML VIAL (10MG/ML) FOR IV START INTRADERMA PRN; +MIDAZOLAM 2 MG/2 ML VIAL IV PRN; +ONDANSETRON 4 MG/2 ML VIAL IVP ONE; +SCOPOLAMINE 1.5MG/72HR PATCH TRANSDERM ONE
[2019-09-03 11:49] LABS: Glucose,Whole Blood 124 mg/dL (75-99)
[2019-09-03] MEDS ORDERED: fentaNYL (PF) 50 MCG/ML 2 ML AMP IVP ONE (13:01)
--- NOTE | 2019-09-03 13:42 | P.GSHP ---
History of Present Illness H&P Date: 09/03/19 Chief Complaint: Incisional hernia This is a 64-year-old female who has developed an incisional hernia related to her midline incision. Patient is a history located just above the umbilicus. 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 History of Any Multi-Drug Resistant Organisms: None Reported Past Surgical History: Cholecystectomy, Heart Catheterization, Orthopedic Surgery Additional Past Surgical History / Comment(s): 04/2017 EGD/colonoscopy, past EGD/colonoscopy, L shoulder tendon surgery, L ankle closed reduction x2 and then ORIF, cardiac caths x2. Hemicolectomy Bilat cataracts removed Past Anesthesia/Blood Transfusion Reactions: No Reported Reaction Smoking Status: Former smoker - Past Family History Mother Family Medical History: Cancer, CVA/TIA Additional Family Medical History / Comment(s): Mother of a CVA. She also had breast cancer and a pacemaker. Father Family Medical History: CVA/TIA, Myocardial Infarction ([place]) Additional Family Medical History / Comment(s): Father had a [place] at about age 80yrs. He is living. Brother(s) Family Medical History: Congestive Heart Failure (CHF) Additional Family Medical History / Comment(s): CABG Medications and Allergies Home Medications Medication Instructions Recorded Confirmed Type Sucralfate [Carafate] 1 gram PO ACHS 05/10/17 09/03/19 History Aspirin 81 mg PO DAILY chew 05/12/17 09/03/19 Rx Atorvastatin [Lipitor] 20 mg PO HS 07/15/17 09/03/19 History Nitroglycerin Sl Tabs [Nitrostat] 0.4 mg SUBLINGUAL Q5M PRN 02/21/18 09/03/19 History Docusate [Colace] 100 mg PO BID 02/11/19 09/03/19 History Losartan Potassium 100 mg PO DAILY 02/11/19 09/03/19 History Magnesium 400 mg PO DAILY 02/11/19 09/03/19 History Montelukast [Singulair] 10 mg PO W/SUPPER 02/11/19 09/03/19 History Pioglitazone [Actos] 30 mg PO DAILY 02/11/19 09/03/19 History traZODone HCL 50 mg PO HS 02/11/19 09/03/19 History Dicyclomine [Bentyl] 20 mg PO TID #30 tablet 08/31/19 09/03/19 Rx Ondansetron Odt [Zofran Odt] 4 mg PO Q8HR PRN #10 tab 08/31/19 09/03/19 Rx Allergies Allergy/AdvReac Type Severity Reaction Status Date / Time sulfamethoxazole Allergy Unknown Verified 09/03/19 11:24 [From Bactrim] trimethoprim [From Bactrim] Allergy Unknown Verified 09/03/19 11:24 Surgical - Exam Vital Signs Temp Pulse Resp BP Pulse Ox 97.0 F L 77 16 184/79 97 09/03/19 12:04 09/03/19 12:04 09/03/19 12:04 09/03/19 12:04 09/03/19 12:04 - General well developed, well nourished, no distress - Eyes PERRL - ENT normal pinna - Neck no masses - Respiratory normal expansion - Cardiovascular Rhythm: regular - Abdomen Abdomen: soft, non tender Hernia: incisional (4 cm incisional hernia located umbilicus) Results - Labs Abnormal Lab Results - Last 24 Hours (Table) 09/03/19 Range/Units 11:48 POC Glucose (mg/dL) 124 H (75-99) mg/dL Assessment and Plan Assessment: Incisional hernia. We'll perform laparoscopic robotic-assisted repair.
[2019-09-03] MEDS ORDERED: NEOSTIGMINE 1 MG/ML 10 ML VIAL ONE (13:57)
[2019-09-03] MEDS ORDERED: fentaNYL (PF) 50 MCG/ML 2 ML AMP ONE (13:57)
[2019-09-03] MEDS ORDERED: MIDAZOLAM 2 MG/2 ML VIAL ONE (13:57)
[2019-09-03] MEDS ORDERED: HYDROmorphone (PF) 1 MG/ML ONE (13:57)
[2019-09-03] MEDS ORDERED: ESMOLOL 100 MG/10 ML VIAL ONE (13:57)
[2019-09-03] MEDS ORDERED: ROPIVACAINE 5 MG/ML 30 ML VIAL ONE (13:57)
[2019-09-03] MEDS ORDERED: KETAMINE 10 MG/ML 20 ML VIAL ONE (13:57)
[2019-09-03] MEDS ORDERED: ROCURONIUM BROMIDE 10 MG/ML 5 ML VIAL IV ONE (13:57)
[2019-09-03] MEDS ORDERED: DEXAMETHASONE SOD PHOSPHATE 4 MG/ML 1 ML VIAL ONE (13:57)
[2019-09-03] MEDS ORDERED: LIDOCAINE 1% INJ 10MG/ML (20 ML MDV) ONE (13:57)
[2019-09-03] MEDS ORDERED: PROPOFOL 10 MG/ML 20 ML VIAL IV ONE (13:57)
[2019-09-03] MEDS ORDERED: GLYCOPYRROLATE 0.2 MG/ML 2 ML VIAL ONE (13:57)
[2019-09-03] MEDS ORDERED: KETOROLAC 30 MG/ML 1 ML VIAL ONE (13:57)
--- NOTE | 2019-09-03 14:21 | P.ANPRN ---
Procedure Note - Anesthesia - Nerve Block Performed Bilateral Rectus Abdominis Single Time Out Performed: Yes Date of Procedure: 09/03/19 Procedure Start Time: 13:00 Procedure Stop Time: 13:10 Location of Patient: PreOp Indication: Acute Post-Operative Pain, Dx/Pain Location, Requested by Surgeon Sedation Type: Sedate with meaningful contact maintained Preparation: Sterile Prep Position: Supine Catheter: None Needle Types: Pajunk Needle Gauge: 21 Injectate: 0.5% Ropivacaine (see comment for volume) (20ml each side) Blood Aspirated: No Pain Paresthesia on Injection Noted: No Resistance on Injection: Normal Image Stored and Saved: Yes Events: Uneventful and Well Tolerated
[2019-09-03] MEDS ORDERED: BUPIVACAINE (PF) 0.25% 30 ML VIAL SQ ONE (14:29)
[2019-09-03] MEDS ORDERED: LACTATED RINGERS 1,000 ML IV ONE (14:53)
--- NOTE | 2019-09-03 15:05 | P.OP ---
Date of Procedure: 09/03/19 Preoperative Diagnosis: Incisional hernia Postoperative Diagnosis: Incisional hernia Adhesions Procedure(s) Performed: Laparoscopic robotic repair of incisional hernia Laparoscopic lysis of adhesions Anesthesia: WILLY Surgeon: Reji Rangel Estimated Blood Loss (ml): 5 Pathology: none sent Condition: stable Disposition: PACU Description of Procedure: MThe patient was placed on the operating table in the supine position. He received general anesthesia. His abdomen was prepped and draped usual fashion. Using a 5 mm optical trocar under direct visualization the peritoneal cavity was entered in the left upper quadrant. The abdomen was then insufflated. The laparoscope was placed back into the perineal cavity. Next a 8 mm robotic trocar was placed in the left lower quadrant and a 12 mm robotic trocar was placed in the left lateral position. The original 5 mm trocar was exchanged for a 8 mm robotic trocar. The patient's placed in the left side up position. And the patient was undocked the robot. The incisional hernia hernia was visualized. The adhesions to the incisional hernia relates using hook electrocautery. The fascial opening was repaired using 0V LOC suture. Next a piece of 11 cm round ventral light ST mesh was placed into the. Cavity and secured with 2 OV lock suture. The patient was undocked the robot. The needles were retrieved. The fascia of the 12 mm trocar site was closed with 0 Ethibond suture. Skin was closed interrupted 3-0 Monocryl suture. Dermabond dressings was applied. Patient top procedure well and was sent to recovery room stable condition.
[2019-09-03 15:19] VITALS: TEMP 97.1
[2019-09-03 15:26] VITALS: RESP 16
[2019-09-03] MEDS ORDERED: LABETALOL SYRINGE 5 MG/ML IVP ONE (15:35)
[2019-09-03 15:41] LABS: Glucose,Whole Blood 172 mg/dL (75-99)
[2019-09-03] MEDS ORDERED: HYDROcodone/APAP 5-325MG 1 EACH TAB PO ONE (16:45)
[2019-09-03 16:54] VITALS: BP 170/83; PULSE 67
== END 2019-09-03 17:30 | disposition home or self-care (01) ==
LOC: OR 10:59
PROVIDERS: ATTEND Surgery
DX: K43.2 Incisional hernia without obstruction or gangrene (principal); E11.22 Type 2 diabetes mellitus with diabetic chronic kidney disease; I12.9 Hypertensive chronic kidney disease with stage 1 through stage 4 chronic kidney disease, or unspecified chronic kidney disease; N18.4 Chronic kidney disease, stage 4 (severe); I25.10 Atherosclerotic heart disease of native coronary artery without angina pectoris; E11.42 Type 2 diabetes mellitus with diabetic polyneuropathy; E78.5 Hyperlipidemia, unspecified; E11.51 Type 2 diabetes mellitus with diabetic peripheral angiopathy without gangrene; K21.9 Gastro-esophageal reflux disease without esophagitis; K27.9 Peptic ulcer, site unspecified, unspecified as acute or chronic, without hemorrhage or perforation; M19.90 Unspecified osteoarthritis, unspecified site; R41.3 Other amnesia; K44.9 Diaphragmatic hernia without obstruction or gangrene; H54.3 Unqualified visual loss, both eyes; R05 Cough; R26.81 Unsteadiness on feet; R21 Rash and other nonspecific skin eruption; Z88.2 Allergy status to sulfonamides; Z79.82 Long term (current) use of aspirin; Z79.899 Other long term (current) drug therapy; Z79.84 Long term (current) use of oral hypoglycemic drugs; Z90.49 Acquired absence of other specified parts of digestive tract; Z98.890 Other specified postprocedural states; Z98.42 Cataract extraction status, left eye; Z98.41 Cataract extraction status, right eye; Z87.891 Personal history of nicotine dependence; Z82.3 Family history of stroke; Z80.3 Family history of malignant neoplasm of breast; Z82.49 Family history of ischemic heart disease and other diseases of the circulatory system
CPT/HCPCS: 49654; S2900; 64488

== ENCOUNTER 2019-09-06 12:40 | Emergency (ER) | payer BC ==
[2019-09-06] MEDS ORDERED: SODIUM CHLORIDE 0.9% 1,000 ML IV STA (13:01)
[2019-09-06] MEDS ORDERED: HYDROmorphone 0.5 MG/0.5 ML SYRINGE IVP STA ×2 (13:19→14:37)
[2019-09-06] MEDS ORDERED: diphenhydrAMINE 50 MG/ML 1 ML VIAL IVP STA (13:19)
[2019-09-06] MEDS ORDERED: ONDANSETRON 4 MG/2 ML VIAL IVP STA ×2 (13:19→14:37)
[2019-09-06] MEDS ORDERED: FAMOTIDINE 20 MG/2 ML VIAL IV STA (13:21)
[2019-09-06 13:53] LABS: Basophils % (A) 1 %; Eosinophils # (A) 0.1 k/uL (0-0.7); Eosinophils % (A) 1 %; HCT 41.4 % (34.0-46.0); HGB 13.3 gm/dL (11.4-16.0); Lymphocytes # (A) 0.5 k/uL (1.0-4.8); Lymphocytes % (A) 7 %; MCH 30.9 pg (25.0-35.0); MCV 96.7 fL (80.0-100.0); Mean Platelet Volume 7.3; Monocytes # (A) 0.3 k/uL (0-1.0); Monocytes % (A) 3 %; Neutrophils # (A) 6.6 k/uL (1.3-7.7); Neutrophils % (A) 87 %; Platelet Count 298 k/uL (150-450); RBC 4.29 m/uL (3.80-5.40); RDW 13.2 % (11.5-15.5); WBC 7.6 k/uL (3.8-10.6)
[2019-09-06 14:02] LABS: Albumin 3.9 g/dL (3.5-5.0); Potassium 4.5 mmol/L (3.5-5.1); Total Bilirubin 0.7 mg/dL (0.2-1.3); Total Protein 6.3 g/dL (6.3-8.2)
[2019-09-06 14:12] LABS: Appearance,Urine Clear (Clear); Bilirubin,Urine Negative (Negative); Blood,Urine Small (Negative); Color,Urine Yellow; Glucose,Urine (UA) Negative (Negative); Hyaline Casts,Urine 3 /lpf (0-2); Ketones,Urine 3+ (Negative); Leukocyte Esterase,Urine Trace (Negative); Mucus,Urine Occasional /hpf; Nitrite,Urine Negative (Negative); PH, Urine 5.5 (5.0-8.0); Protein,Urine 1+ (Negative); RBC,Urine 1 /hpf (0-5); Specific Gravity,Urine 1.021 (1.001-1.035); Squamous Epithelial Cell,Urine 1 /hpf (0-4); Urobilinogen,Urine <2.0 mg/dL (<2.0); WBC,Urine 2 /hpf (0-5)
--- NOTE | 2019-09-06 14:17 | XR ---
EXAMINATION TYPE: XR KUB DATE OF EXAM: 09/06/2019 2:08 PM CLINICAL HISTORY: Abdominal pain after recent hernia repair TECHNIQUE: Single upright image of the abdomen is obtained. COMPARISON: 08/31/2019. FINDINGS: Cholecystectomy clips are seen. No dilated large or small bowel. Lung bases are well aerate d. Mild degenerative change of the spine and hips. No suspicious calcification in the abdomen or pelv is. IMPRESSION: Nonobstructive bowel gas pattern.
--- NOTE | 2019-09-06 14:41 | ED ---
Abdominal Pain HPI - General Chief Complaint: Abdominal Pain Stated Complaint: Abd Pain/Vomiting Time Seen by Provider: 09/06/19 13:01 Source: patient, RN notes reviewed Mode of arrival: wheelchair Limitations: no limitations - History of Present Illness Initial Comments: 64-year-old female presents emergency Department with chief complaint of abdominal pain postsurgical. Patient states she is not tolerating the pain well. She's had some nausea vomiting which cannot keep down her pain meds at this time. She reports no fevers or chills. Patient had a hernia repair by Dr. Rangel on Sunday. Patient states she had no complications with the s urgery. She was discharged with pain medication but states again she cannot tolerate it. Patient has no dysuria no hematuria she's had slight diarrhea no constipation. No abdominal bloating. Denies chest pain or shortness of breath - Related Data Home Medications Medication Instructions Recorded Confirmed Sucralfate [Carafate] 1 gram PO ACHS 05/10/17 09/03/19 Atorvastatin [Lipitor] 20 mg PO HS 07/15/17 09/03/19 Nitroglycerin Sl Tabs [Nitrostat] 0.4 mg SUBLINGUAL Q5M PRN 02/21/18 09/03/19 Docusate [Colace] 100 mg PO BID 02/11/19 09/03/19 Losartan Potassium 100 mg PO DAILY 02/11/19 09/03/19 Magnesium 400 mg PO DAILY 02/11/19 09/03/19 Montelukast [Singulair] 10 mg PO W/SUPPER 02/11/19 09/03/19 Pioglitazone [Actos] 30 mg PO DAILY 02/11/19 09/03/19 traZODone HCL 50 mg PO HS 02/11/19 09/03/19 Previous Rx's Medication Instructions Recorded Aspirin 81 mg PO DAILY chew 05/12/17 Dicyclomine [Bentyl] 20 mg PO TID #30 tablet 08/31/19 Ondansetron Odt [Zofran Odt] 4 mg PO Q8HR PRN #10 tab 08/31/19 Docusate [Colace] 100 mg PO BID #20 capsule 09/03/19 HYDROcodone/APAP 5-325MG [[place] 1 tab PO Q6HR PRN #10 tab 09/03/19 5-325] Ondansetron Odt [Zofran Odt] 4 mg PO Q8HR PRN #14 tab 09/06/19 Allergies Allergy/AdvReac Type Severity Reaction Status Date / Time sulfamethoxazole Allergy Unknown Verified 09/06/19 12:48 [From Bactrim] trimethoprim [From Bactrim] Allergy Unknown Verified 09/06/19 12:48 Review of Systems ROS Statement: Those systems with pertinent positive or pertinent negative responses have been documented in the HPI. ROS Other: All systems not noted in ROS Statement are negative. 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 History of Any Multi-Drug Resistant Organisms: None Reported Past Surgical History: Hernia Repair Additional Past Surgical History / Comment(s): 04/2017 EGD/colonoscopy, past EGD/colonoscopy, L shoulder tendon surgery, L ankle closed reduction x2 and then ORIF, cardiac caths x2. Hemicolectomy Past Anesthesia/Blood Transfusion Reactions: No Reported Reaction Past Psychological History: Anxiety, Depression Smoking Status: Former smoker - Past Family History Mother Family Medical History: Cancer, CVA/TIA Additional Family Medical History / Comment(s): Mother of a CVA. She also had breast cancer and a pacemaker. Father Family Medical History: CVA/TIA, Myocardial Infarction ([place]) Additional Family Medical History / Comment(s): Father had a AK at about age 80yrs. He is living. Brother(s) Family Medical History: Congestive Heart Failure (CHF) Additional Family Medical History / Comment(s): CABG General Exam Limitations: no limitations General appearance: alert, in no apparent distress Head exam: Present: atraumatic, normocephalic, normal inspection Eye exam: Present: normal appearance, PERRL, EOMI. Absent: scleral icterus, conjunctival injection, periorbital swelling ENT exam: Present: normal exam, normal oropharynx, mucous membranes moist, TM's normal bilaterally Neck exam: Present: normal inspection, full ROM. Absent: tenderness, meningismus, lymphadenopathy Respiratory exam: Present: normal lung sounds bilaterally. Absent: respiratory distress, wheezes, rales, rhonchi, stridor Cardiovascular Exam: Present: regular rate, normal rhythm, normal heart sounds. Absent: systolic murmur, diastolic murmur, rubs, gallop, clicks GI/Abdominal exam: Present: soft, tenderness (Mild diffuse no localized tenderness), normal bowel sounds, other (Incision is closed, no erythema no drainage). Absent: distended, guarding, rebound, rigid Back exam: Absent: CVA tenderness (R), CVA tenderness (L) Neurological exam: Present: alert, oriented X3, CN II-XII intact Skin exam: Present: warm, dry, intact, normal color. Absent: rash Course Vital Signs 09/06/19 09/06/19 12:46 12:48 Temperature 98.3 F Pulse Rate 73 Respiratory 18 18 Rate Blood Pressure 173/91 O2 Sat by Pulse 100 Oximetry Medical Decision Making - Medical Decision Making Patient's KUB does not show any evidence of obstruction., Urinalysis, lab essentially unremarkable. She was hydrated, pains improved will be discharged in stable condition. - Lab Data Result diagrams: 09/06/19 13:39 09/06/19 13:39 Lab Results 09/06/19 09/06/19 09/06/19 Range/Units 13:39 13:39 13:39 WBC 7.6 (3.8-10.6) k/uL RBC 4.29 (3.80-5.40) m/uL Hgb 13.3 (11.4-16.0) gm/dL Hct 41.4 (34.0-46.0) % MCV 96.7 (80.0-100.0) fL MCH 30.9 (25.0-35.0) pg MCHC 32.0 (31.0-37.0) g/dL RDW 13.2 (11.5-15.5) % Plt Count 298 (150-450) k/uL Neutrophils % 87 % Lymphocytes % 7 % Monocytes % 3 % Eosinophils % 1 % Basophils % 1 % Neutrophils # 6.6 (1.3-7.7) k/uL Lymphocytes # 0.5 L (1.0-4.8) k/uL Monocytes # 0.3 (0-1.0) k/uL Eosinophils # 0.1 (0-0.7) k/uL Basophils # 0.0 (0-0.2) k/uL Sodium 136 L (137-145) mmol/L Potassium 4.5 (3.5-5.1) mmol/L Chloride 102 (98-107) mmol/L Carbon Dioxide 26 (22-30) mmol/L Anion Gap 8 mmol/L BUN 18 H (7-17) mg/dL Creatinine 0.87 (0.52-1.04) mg/dL Est GFR (CKD-EPI)AfAm 82 (>60 ml/min/1.73 sqM) Est GFR (CKD-EPI)NonAf 71 (>60 ml/min/1.73 sqM) Glucose 149 H (74-99) mg/dL Plasma Lactic Acid [place] 1.1 (0.7-2.0) mmol/L Calcium 9.0 (8.4-10.2) mg/dL Total Bilirubin 0.7 (0.2-1.3) mg/dL AST 39 H (14-36) U/L ALT 19 (4-34) U/L Alkaline Phosphatase 106 (38-126) U/L Total Protein 6.3 (6.3-8.2) g/dL Albumin 3.9 (3.5-5.0) g/dL Amylase 37 (30-110) U/L Lipase 72 (23-300) U/L Urine Color Urine Appearance (Clear) Urine pH (5.0-8.0) Ur Specific [place] (1.001-1.035) Urine Protein (Negative) Urine Glucose (UA) (Negative) Urine Ketones (Negative) Urine Blood (Negative) Urine Nitrite (Negative) Urine Bilirubin (Negative) Urine Urobilinogen (<2.0) mg/dL Ur Leukocyte Esterase (Negative) Urine RBC (0-5) /hpf Urine WBC (0-5) /hpf Ur Squamous Epith Cells (0-4) /hpf Hyaline Casts (0-2) /lpf Urine Mucus (None) /hpf 09/06/19 Range/Units 14:00 WBC (3.8-10.6) k/uL RBC (3.80-5.40) m/uL Hgb (11.4-16.0) gm/dL Hct (34.0-46.0) % MCV (80.0-100.0) fL MCH (25.0-35.0) pg MCHC (31.0-37.0) g/dL RDW (11.5-15.5) % Plt Count (150-450) k/uL Neutrophils % % Lymphocytes % % Monocytes % % Eosinophils % % Basophils % % Neutrophils # (1.3-7.7) k/uL Lymphocytes # (1.0-4.8) k/uL Monocytes # (0-1.0) k/uL Eosinophils # (0-0.7) k/uL Basophils # (0-0.2) k/uL Sodium (137-145) mmol/L Potassium (3.5-5.1) mmol/L Chloride (98-107) mmol/L Carbon Dioxide (22-30) mmol/L Anion Gap mmol/L BUN (7-17) mg/dL Creatinine (0.52-1.04) mg/dL Est GFR (CKD-EPI)AfAm (>60 ml/min/1.73 sqM) Est GFR (CKD-EPI)NonAf (>60 ml/min/1.73 sqM) Glucose (74-99) mg/dL Plasma Lactic Acid [place] (0.7-2.0) mmol/L Calcium (8.4-10.2) mg/dL Total Bilirubin (0.2-1.3) mg/dL AST (14-36) U/L ALT (4-34) U/L Alkaline Phosphatase (38-126) U/L Total Protein (6.3-8.2) g/dL Albumin (3.5-5.0) g/dL Amylase (30-110) U/L Lipase (23-300) U/L Urine Color Yellow Urine Appearance Clear (Clear) Urine pH 5.5 (5.0-8.0) Ur Specific [place] 1.021 (1.001-1.035) Urine Protein 1+ H (Negative) Urine Glucose (UA) Negative (Negative) Urine Ketones 3+ H (Negative) Urine Blood Small H (Negative) Urine Nitrite Negative (Negative) Urine Bilirubin Negative (Negative) Urine Urobilinogen <2.0 (<2.0) mg/dL Ur Leukocyte Esterase Trace H (Negative) Urine RBC 1 (0-5) /hpf Urine WBC 2 (0-5) /hpf Ur Squamous Epith Cells 1 (0-4) /hpf Hyaline Casts 3 H (0-2) /lpf Urine Mucus Occasional H (None) /hpf Disposition Clinical Impression: Postoperative abdominal pain, Nausea & vomiting Disposition: HOME SELF-CARE Condition: Stable Instructions (If sedation given, give patient instructions): Abdominal Pain (ED) Additional Instructions: Please return to the Emergency Department if symptoms worsen or any other concerns. Prescriptions: Ondansetron Odt [Zofran Odt] 4 mg PO Q8HR PRN #14 tab PRN Reason: Nausea Is patient prescribed a controlled substance at d/c from ED?: No Referrals: Karen Snowden DO [Primary Care Provider] - 1-2 days Time of Disposition: 14:41
[2019-09-06 14:55] VITALS: BP 154/89; PULSE 79; RESP 16; TEMP 97.9
== END 2019-09-06 14:54 | disposition home or self-care (01) ==
LOC: EC 12:40
DX: G89.18 Other acute postprocedural pain (principal); R10.9 Unspecified abdominal pain; R11.2 Nausea with vomiting, unspecified; I25.10 Atherosclerotic heart disease of native coronary artery without angina pectoris; E78.5 Hyperlipidemia, unspecified; E11.40 Type 2 diabetes mellitus with diabetic neuropathy, unspecified; E11.51 Type 2 diabetes mellitus with diabetic peripheral angiopathy without gangrene; E11.22 Type 2 diabetes mellitus with diabetic chronic kidney disease; I12.9 Hypertensive chronic kidney disease with stage 1 through stage 4 chronic kidney disease, or unspecified chronic kidney disease; N18.4 Chronic kidney disease, stage 4 (severe); F41.9 Anxiety disorder, unspecified; F32.9 Major depressive disorder, single episode, unspecified; Z79.899 Other long term (current) drug therapy; Z88.1 Allergy status to other antibiotic agents; Z88.2 Allergy status to sulfonamides; Z87.891 Personal history of nicotine dependence
CPT/HCPCS: 36415; 80053; 82150; 83605; 83690; 85025; 81001; 74018; 99284; 96374; 96375 ×3; 96376 ×2; 96361; J1200; J2405; J1170

== ENCOUNTER 2019-11-12 10:04 | Inpatient (IN) | payer BC ==
[2019-11-12] MEDS ORDERED: ONDANSETRON 4 MG/2 ML VIAL IVP STA (10:29)
[2019-11-12] MEDS ORDERED: MORPHINE SULFATE 4 MG/ML SYRINGE IV STA (10:29)
[2019-11-12] MEDS ORDERED: SODIUM CHLORIDE 0.9% 1,000 ML IV STA ×2 (10:29)
--- NOTE | 2019-11-12 10:34 | ED ---
Abdominal Pain HPI - General Chief Complaint: Abdominal Pain Stated Complaint: Abd pain Time Seen by Provider: 11/12/19 10:15 Source: patient, RN notes reviewed, old records reviewed Mode of arrival: wheelchair Limitations: no limitations - History of Present Illness Initial Comments: Patient is a 64-year-old female who presents the emergency department today for evaluation with chief complaint of diffuse abdominal pain for the past 4 hours. Patient states that she has been having loose stool since this morning and woke up with this abdominal pain. She reports she complains of nausea but no specific vomiting. She states that her abdominal pain feels similar to her previous partial bowel obstructions. Patient states that she's had no fevers. - Related Data Home Medications Medication Instructions Recorded Confirmed Sucralfate [Carafate] 1 gram PO ACHS 05/10/17 09/03/19 Atorvastatin [Lipitor] 20 mg PO HS 07/15/17 09/03/19 Nitroglycerin Sl Tabs [Nitrostat] 0.4 mg SUBLINGUAL Q5M PRN 02/21/18 09/03/19 Docusate [Colace] 100 mg PO BID 02/11/19 09/03/19 Losartan Potassium 100 mg PO DAILY 02/11/19 09/03/19 Magnesium 400 mg PO DAILY 02/11/19 09/03/19 Montelukast [Singulair] 10 mg PO W/SUPPER 02/11/19 09/03/19 Pioglitazone [Actos] 30 mg PO DAILY 02/11/19 09/03/19 traZODone HCL 50 mg PO HS 02/11/19 09/03/19 Previous Rx's Medication Instructions Recorded Aspirin 81 mg PO DAILY chew 05/12/17 Dicyclomine [Bentyl] 20 mg PO TID #30 tablet 08/31/19 Ondansetron Odt [Zofran Odt] 4 mg PO Q8HR PRN #10 tab 08/31/19 Docusate [Colace] 100 mg PO BID #20 capsule 09/03/19 HYDROcodone/APAP 5-325MG [[place] 1 tab PO Q6HR PRN #10 tab 09/03/19 5-325] Ondansetron Odt [Zofran Odt] 4 mg PO Q8HR PRN #14 tab 09/06/19 Allergies Allergy/AdvReac Type Severity Reaction Status Date / Time sulfamethoxazole Allergy Unknown Verified 11/12/19 10:11 [From Bactrim] trimethoprim [From Bactrim] Allergy Unknown Verified 11/12/19 10:11 Review of Systems ROS Statement: Those systems with pertinent positive or pertinent negative responses have been documented in the HPI. ROS Other: All systems not noted in ROS Statement are negative. 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 History of Any Multi-Drug Resistant Organisms: None Reported Past Surgical History: Hernia Repair Additional Past Surgical History / Comment(s): 04/2017 EGD/colonoscopy, past EGD/colonoscopy, L shoulder tendon surgery, L ankle closed reduction x2 and then ORIF, cardiac caths x2. Hemicolectomy Past Anesthesia/Blood Transfusion Reactions: No Reported Reaction Past Psychological History: Anxiety, Depression Smoking Status: Former smoker - Past Family History Mother Family Medical History: Cancer, CVA/TIA Additional Family Medical History / Comment(s): Mother of a CVA. She also had breast cancer and a pacemaker. Father Family Medical History: CVA/TIA, Myocardial Infarction ([place]) Additional Family Medical History / Comment(s): Father had a [place] at about age 80yrs. He is living. Brother(s) Family Medical History: Congestive Heart Failure (CHF) Additional Family Medical History / Comment(s): CABG General Exam - General Exam Comments Initial Comments: 64 year old female, no distress. Limitations: no limitations General appearance: alert, in no apparent distress Head exam: Present: atraumatic, normocephalic, normal inspection Eye exam: Present: normal appearance, PERRL, EOMI. Absent: scleral icterus, conjunctival injection, periorbital swelling ENT exam: Present: normal exam, mucous membranes moist Neck exam: Present: normal inspection. Absent: tenderness, meningismus, lymphadenopathy Respiratory exam: Present: normal lung sounds bilaterally. Absent: respiratory distress, wheezes, rales, rhonchi, stridor Cardiovascular Exam: Present: regular rate, normal rhythm, normal heart sounds. Absent: systolic murmur, diastolic murmur, rubs, gallop, clicks GI/Abdominal exam: Present: soft, tenderness (Left abdominal tenderness ), normal bowel sounds. Absent: distended, guarding, rebound, rigid Extremities exam: Present: normal inspection, full ROM, normal capillary refill. Absent: tenderness, pedal edema, joint swelling, calf tenderness Back exam: Present: normal inspection Neurological exam: Present: alert, oriented X3, CN II-XII intact Psychiatric exam: Present: normal affect, normal mood Skin exam: Present: warm, dry, intact, normal color. Absent: rash Course Vital Signs 11/12/19 10:08 Temperature 97.4 F L Pulse Rate 82 Respiratory 18 Rate Blood Pressure 159/95 O2 Sat by Pulse 99 Oximetry Medical Decision Making - Medical Decision Making 64-year-old female presents returns today with diffuse abdominal pain starting today. She complains of nausea and did have some episodes of loose stools. She reports it feels similar to previous bowel obstructions. She had diffuse tend erness, worse tenderness of the left lower quadrant. Labwork was obtained relatively unremarkable. Patient had CT on pelvis. Persistent tenderness which shows evidence of colitis and suspected early partial bowel obstruction. Is no vomiting at this time, discussed no nasogastric tube at this time however Patient will be remaining nothing by mouth and start IV fluids. She required a second dose of pain medication emergency department. Patient is agreeable to admission and discussed the case with Dr. Lim, whom discussed the case with Dr. moreno, the patient's surgeon. - Lab Data Result diagrams: 11/12/19 10:39 11/12/19 10:39 Lab Results 11/12/19 11/12/19 11/12/19 Range/Units 10:39 10:39 10:39 WBC 5.8 (3.8-10.6) k/uL RBC 4.63 (3.80-5.40) m/uL Hgb 13.9 (11.4-16.0) gm/dL Hct 45.0 (34.0-46.0) % MCV 97.2 (80.0-100.0) fL MCH 30.0 (25.0-35.0) pg MCHC 30.8 L (31.0-37.0) g/dL RDW 13.1 (11.5-15.5) % Plt Count 249 (150-450) k/uL Neutrophils % 69 % Lymphocytes % 21 % Monocytes % 4 % Eosinophils % 3 % Basophils % 1 % Neutrophils # 4.0 (1.3-7.7) k/uL Lymphocytes # 1.2 (1.0-4.8) k/uL Monocytes # 0.2 (0-1.0) k/uL Eosinophils # 0.2 (0-0.7) k/uL Basophils # 0.1 (0-0.2) k/uL Sodium 138 (137-145) mmol/L Potassium 5.5 H (3.5-5.1) mmol/L Chloride 109 H (98-107) mmol/L Carbon Dioxide 20 L (22-30) mmol/L Anion Gap 9 mmol/L BUN 25 H (7-17) mg/dL Creatinine 1.00 (0.52-1.04) mg/dL Est GFR (CKD-EPI)AfAm 70 (>60 ml/min/1.73 sqM) Est GFR (CKD-EPI)NonAf 61 (>60 ml/min/1.73 sqM) Glucose 160 H (74-99) mg/dL Plasma Lactic Acid [place] (0.7-2.0) mmol/L Calcium 9.5 (8.4-10.2) mg/dL Total Bilirubin 0.5 (0.2-1.3) mg/dL AST 28 (14-36) U/L ALT 15 (4-34) U/L Alkaline Phosphatase 123 (38-126) U/L Total Protein 7.0 (6.3-8.2) g/dL Albumin 4.2 (3.5-5.0) g/dL Amylase 66 (30-110) U/L Lipase 204 (23-300) U/L Urine Color Yellow Urine Appearance Clear (Clear) Urine pH 5.0 (5.0-8.0) Ur Specific [place] 1.022 (1.001-1.035) Urine Protein Negative (Negative) Urine Glucose (UA) Negative (Negative) Urine Ketones Negative (Negative) Urine Blood Negative (Negative) Urine Nitrite Negative (Negative) Urine Bilirubin Negative (Negative) Urine Urobilinogen <2.0 (<2.0) mg/dL Ur Leukocyte Esterase Small H (Negative) Urine RBC <1 (0-5) /hpf Urine WBC <1 (0-5) /hpf Urine Mucus Rare H (None) /hpf 11/12/19 Range/Units 10:39 WBC (3.8-10.6) k/uL RBC (3.80-5.40) m/uL Hgb (11.4-16.0) gm/dL Hct (34.0-46.0) % MCV (80.0-100.0) fL MCH (25.0-35.0) pg MCHC (31.0-37.0) g/dL RDW (11.5-15.5) % Plt Count (150-450) k/uL Neutrophils % % Lymphocytes % % Monocytes % % Eosinophils % % Basophils % % Neutrophils # (1.3-7.7) k/uL Lymphocytes # (1.0-4.8) k/uL Monocytes # (0-1.0) k/uL Eosinophils # (0-0.7) k/uL Basophils # (0-0.2) k/uL Sodium (137-145) mmol/L Potassium (3.5-5.1) mmol/L Chloride (98-107) mmol/L Carbon Dioxide (22-30) mmol/L Anion Gap mmol/L BUN (7-17) mg/dL Creatinine (0.52-1.04) mg/dL Est GFR (CKD-EPI)AfAm (>60 ml/min/1.73 sqM) Est GFR (CKD-EPI)NonAf (>60 ml/min/1.73 sqM) Glucose (74-99) mg/dL Plasma Lactic Acid [place] 1.4 (0.7-2.0) mmol/L Calcium (8.4-10.2) mg/dL Total Bilirubin (0.2-1.3) mg/dL AST (14-36) U/L ALT (4-34) U/L Alkaline Phosphatase (38-126) U/L Total Protein (6.3-8.2) g/dL Albumin (3.5-5.0) g/dL Amylase (30-110) U/L Lipase (23-300) U/L Urine Color Urine Appearance (Clear) Urine pH (5.0-8.0) Ur Specific [place] (1.001-1.035) Urine Protein (Negative) Urine Glucose (UA) (Negative) Urine Ketones (Negative) Urine Blood (Negative) Urine Nitrite (Negative) Urine Bilirubin (Negative) Urine Urobilinogen (<2.0) mg/dL Ur Leukocyte Esterase (Negative) Urine RBC (0-5) /hpf Urine WBC (0-5) /hpf Urine Mucus (None) /hpf - Radiology Data Radiology results: report reviewed CT shows postsurgical changes in the proximal colon redemonstrated. Overall nonspecific but favored nonobstructive bowel gas pattern. Cannot exclude new areas of mild uncomplicated acute colitis to correlate clinically. Exclude some areas of partial small bowel obstruction related to adhesions or some fluid levels in the small bowel loops in the lower abdomen and pelvis. No greater than 3 cm dilation or significant proximal dilation for significant bowel obstruction. Interval successful repair of the umbilical hernia. This is read by Dr. machado. Disposition Clinical Impression: Partial small bowel obstruction, Colitis Disposition: ADMITTED IP TO THIS [facility] Condition: Stable Is patient prescribed a controlled substance at d/c from ED?: No Referrals: Dmitry Lewis MD [Primary Care Provider] - 1-2 days Time of Disposition: 12:40
[2019-11-12 10:57] LABS: Basophils # (A) 0.1 k/uL (0-0.2); Basophils % (A) 1 %; Eosinophils # (A) 0.2 k/uL (0-0.7); Eosinophils % (A) 3 %; HGB 13.9 gm/dL (11.4-16.0); Lymphocytes # (A) 1.2 k/uL (1.0-4.8); Lymphocytes % (A) 21 %; MCHC 30.8 g/dL (31.0-37.0); MCV 97.2 fL (80.0-100.0); Mean Platelet Volume 7.5; Monocytes # (A) 0.2 k/uL (0-1.0); Monocytes % (A) 4 %; Neutrophils % (A) 69 %; Platelet Count 249 k/uL (150-450); RBC 4.63 m/uL (3.80-5.40); RDW 13.1 % (11.5-15.5); WBC 5.8 k/uL (3.8-10.6)
[2019-11-12 11:03] LABS: Appearance,Urine Clear (Clear); Bilirubin,Urine Negative (Negative); Blood,Urine Negative (Negative); Color,Urine Yellow; Glucose,Urine (UA) Negative (Negative); Ketones,Urine Negative (Negative); Leukocyte Esterase,Urine Small (Negative); Mucus,Urine Rare /hpf; Nitrite,Urine Negative (Negative); Protein,Urine Negative (Negative); RBC,Urine <1 /hpf (0-5); Specific Gravity,Urine 1.022 (1.001-1.035); Urobilinogen,Urine <2.0 mg/dL (<2.0); WBC,Urine <1 /hpf (0-5)
[2019-11-12 11:04] LABS: Albumin 4.2 g/dL (3.5-5.0); Calcium 9.5 mg/dL (8.4-10.2); Total Bilirubin 0.5 mg/dL (0.2-1.3)
[2019-11-12 11:06] LABS: Potassium 5.5 mmol/L (3.5-5.1)
--- NOTE | 2019-11-12 11:47 | CT ---
EXAMINATION TYPE: CT abdomen pelvis w con DATE OF EXAM: 11/12/2019 HISTORY: Upper abdominal pain per patient. CT DLP: 1260.6mGycm Automated Exposure Control for Dose Reduction was Utilized. CONTRAST: CT scan of the abdomen and pelvis is performed with IV Contrast, patient injected with 100 mL of Isov ue 300. COMPARISON: CT abdomen and pelvis August 31, 2019 and older CTs FINDINGS: LUNG BASES: Mild to moderate bibasilar scarring redemonstrated. LIVER/GB: Cholecystectomy clips redemonstrated. PANCREAS: No significant abnormality is seen. SPLEEN: Occasional punctate calcification presumed product of old granulomatous disease redemonstrate d. ADRENALS: No significant abnormality is seen. KIDNEYS: Symmetric cortical medullary uptake and excretion without hydronephrosis seen bilaterally. S table nearly 3.0 cm thin-walled cyst lower pole of the left kidney coronal image 54. BOWEL: Stable small sized hiatal hernia. Suboptimal evaluation without enteric contrast. Stomach poor ly distended and suboptimally evaluated. Surgical changes from partial proximal colectomy and small b owel anastomosis with some focal prominence of the colon at this level again seen. Overall majority o f small and large bowel loops not suspiciously evaluated. There are few more prominent fluid-filled s mall bowel loops in the lower abdomen and pelvis measuring up to 2.5 cm in size. No greater than 3.0 cm dilatation. Some areas of mild wall thickening throughout the visualized colon are present. UTERUS/ADNEXA: Anteverted uterus. Stable-appearing normal-sized left ovary. Similar poor visualizatio n of right ovary from adjacent small bowel loops LYMPH NODES: No greater than 1cm abdominal or pelvic lymph nodes are appreciated. OSSEOUS STRUCTURES: Spurring and narrowing of pubic symphysis. Vacuum disc phenomenon with moderate d isc space narrowing L4-L5 level. Facet arthropathy lower lumbar levels. OTHER: Interval repair of focal umbilical hernia suspected as it is not now clearly identified. Mild to moderate calcified plaque of the aorta extends into branch vessels IMPRESSION: 1. Postsurgical changes to proximal colon redemonstrated. Overall nonspecific but favor nonobstructiv e bowel gas pattern. Cannot exclude new areas of mild uncomplicated acute colitis, correlate clinical ly. Cannot exclude some areas of partial small bowel obstruction related to adhesions as there are so me fluid-filled prominent small bowel loops in the lower abdomen and pelvis. No greater than 3.0 cm d ilatation or significant proximal dilatation to suggest significant small bowel obstruction. Interval successful repair of umbilical hernia.
[2019-11-12] MEDS ORDERED: HYDROmorphone 1 MG/ML 1 ML SYRINGE IVP STA (12:27)
[2019-11-12] MEDS ORDERED: HYDROmorphone 1 MG/ML 1 ML SYRINGE IVP PRN (12:40)
[2019-11-12] MEDS ORDERED: ONDANSETRON 4 MG/2 ML VIAL IVP PRN ×2 (12:40→14:36)
[2019-11-12] MEDS ORDERED: NALOXONE 0.4 MG/ML 1 ML VIAL IV PRN (12:40)
[2019-11-12] MEDS: SODIUM CHLORIDE 0.9% 1,000 ML IV SCH ×3 (16:45→22:47)
[2019-11-12] MEDS: HEPARIN SODIUM,PORCINE 5,000 UNIT/ML 1 ML VIAL SQ SCH ×2 (16:45→23:51)
[2019-11-12 17:20] LABS: Glucose,Whole Blood 107 mg/dL (75-99)
[2019-11-12] MEDS: INSULIN ASPART (NovoLOG) 100 UNIT/ML VIAL SQ SCH ×2 (17:30→20:35)
[2019-11-12 20:10] LABS: Glucose,Whole Blood 86 mg/dL (75-99)
[2019-11-12] MEDS: KETOROLAC 30 MG/ML 1 ML VIAL IVP PRN (21:34)
[2019-11-12] MEDS ORDERED: ACETAMINOPHEN IV (For NPO) 1,000 MG in EMPTY BAG 1 BAG IVPB PRN (21:53)
[2019-11-12] MEDS: DEXTROSE 5%-0.45% NACL 1,000 ML IV SCH (22:46)
[2019-11-12 23:56] LABS: Glucose,Whole Blood 156 mg/dL (75-99)
[2019-11-13] MEDS: KETOROLAC 30 MG/ML 1 ML VIAL IVP PRN ×3 (05:40→21:15)
[2019-11-13 06:31] LABS: Basophils % (A) 1 %; Eosinophils # (A) 0.1 k/uL (0-0.7); Eosinophils % (A) 3 %; HCT 39.6 % (34.0-46.0); HGB 12.4 gm/dL (11.4-16.0); Hypochromasia Slight; Lymphocytes # (A) 1.2 k/uL (1.0-4.8); Lymphocytes % (A) 32 %; MCH 31.2 pg (25.0-35.0); MCHC 31.4 g/dL (31.0-37.0); MCV 99.4 fL (80.0-100.0); Mean Platelet Volume 7.5; Monocytes # (A) 0.2 k/uL (0-1.0); Monocytes % (A) 5 %; Neutrophils # (A) 2.1 k/uL (1.3-7.7); Neutrophils % (A) 57 %; Platelet Count 262 k/uL (150-450); RBC 3.98 m/uL (3.80-5.40); RDW 13.4 % (11.5-15.5); WBC 3.7 k/uL (3.8-10.6)
[2019-11-13 06:46] LABS: Albumin 3.4 g/dL (3.5-5.0); Calcium 8.4 mg/dL (8.4-10.2); Potassium 4.3 mmol/L (3.5-5.1); Total Bilirubin 0.4 mg/dL (0.2-1.3)
[2019-11-13 06:56] LABS: Glucose,Whole Blood 123 mg/dL (75-99)
[2019-11-13] MEDS: HEPARIN SODIUM,PORCINE 5,000 UNIT/ML 1 ML VIAL SQ SCH ×3 (07:21→23:23)
[2019-11-13] MEDS: INSULIN ASPART (NovoLOG) 100 UNIT/ML VIAL SQ SCH ×4 (07:21→20:32)
[2019-11-13] MEDS: PANTOPRAZOLE 40 MG/10 ML VIAL IV SCH (07:21)
[2019-11-13] MEDS: DEXTROSE 5%-0.45% NACL 1,000 ML IV SCH ×2 (07:30→17:40)
[2019-11-13 10:21] VITALS: BMI 38.0
[2019-11-13 11:17] LABS: Glucose,Whole Blood 151 mg/dL (75-99)
[2019-11-13] MEDS: SODIUM CHLORIDE 0.9% 1,000 ML IV SCH (11:30)
--- NOTE | 2019-11-13 13:50 | P.GSHP ---
History of Present Illness H&P Date: 11/12/19 Chief Complaint: abdominal pain CHIEF COMPLAINT: Abdominal pain HISTORY OF PRESENT ILLNESS: 64-year-old female who presented to the emergency room with a chief complaint of abdominal pain. Patient reports she began having abdominal pain yesterday. Patient reports she is passing flatus. Denies having a bowel movement today. She denies nausea or vomiting. Denies fever or chills. Patient recently underwent laparoscopic robotic repair of incisional hernia and lysis of adhesions on 09/03/[address] Rangel PAST MEDICAL HISTORY: See list. PAST SURGICAL HISTORY: See list. SOCIAL HISTORY: No illicit drug use. REVIEW OF SYSTEMS: CONSTITUTIONAL: Denies fever or chills. HEENT: Denies blurred vision, vision changes, or eye pain. Denies hemoptysis CARDIOVASCULAR: Denies chest pain or pressure. RESPIRATORY: No shortness of breath. GASTROINTESTINAL: Refer to HPI for pertinent findings HEMATOLOGIC: Denies bleeding disorders. GENITOURINARY: Denies any blood in urine. SKIN: Denies pruitis. Denies rash. PHYSICAL EXAM: VITAL SIGNS: Reviewed. GENERAL: Well-developed in no acute distress. HEENT: No sclera icterus. Extraocular movements grossly intact. Moist buccal mucosa. Head is atraumatic, normocephalic. ABDOMEN: Soft. Nondistended. Nontender. NEUROLOGIC: Alert and oriented. Cranial nerves II through XII grossly intact. LABORATORY DATA: WBC 5.8. Hemoglobin 13.9. Platelet count 249. Sodium 138. Potassium 5.5. Lactic acid 1.4. IMAGING: CT abdomen and pelvis: Overall nonspecific but favor an obstructive bowel gas pattern. Cannot exclude new areas of mild uncomplicated acute colitis. Cannot exclude some areas of partial small bowel obstruction related to adhesions as there is some fluid-filled prominent small bowel loops in the lower abdomen and pelvis. No greater than 3.0 cm dilatation or significant proximal dilatation to suggest significant small bowel obstruction. ASSESSMENT: 1. Abdominal pain 2. Acute colitis 3. Possible developing small bowel obstruction, although unlikely 4. History of laparoscopic robotic repair of incisional hernia and lysis of adhesions on 09/03/2019 5. 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 Lewis for medical management -Begin clear liquid diet -No surgical intervention recommended at this time Nurse practitioner note has been reviewed by physician. Signing provider agrees with the documented findings, assessment, and plan of care. 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 History of Any Multi-Drug Resistant Organisms: None Reported Past Surgical History: Hernia Repair Additional Past Surgical History / Comment(s): 04/2017 EGD/colonoscopy, past EGD/colonoscopy, L shoulder tendon surgery, L ankle closed reduction x2 and then ORIF, cardiac caths x2. Hemicolectomy Past Anesthesia/Blood Transfusion Reactions: No Reported Reaction Past Psychological History: Anxiety, Depression Smoking Status: Former smoker - Past Family History Mother Family Medical History: Cancer, CVA/TIA Additional Family Medical History / Comment(s): Mother of a CVA. She also had breast cancer and a pacemaker. Father Family Medical History: CVA/TIA, Myocardial Infarction ([place]) Additional Family Medical History / Comment(s): Father had a [place] at about age 80yrs. He is living. Brother(s) Family Medical History: Congestive Heart Failure (CHF) Additional Family Medical History / Comment(s): CABG Medications and Allergies Home Medications Medication Instructions Recorded Confirmed Type Sucralfate [Carafate] 1 gram PO QID 05/10/17 11/12/19 History traZODone HCL 50 mg PO HS 02/11/19 11/12/19 History Pcrxzsp-Houh-Dknb [id number] 1 tab PO BID PRN 11/12/19 11/12/19 History [Excedrin] Allergies Allergy/AdvReac Type Severity Reaction Status Date / Time sulfamethoxazole Allergy Unknown Verified 11/12/19 12:39 [From Bactrim] trimethoprim [From Bactrim] Allergy Unknown Verified 11/12/19 12:39 Surgical - Exam Vital Signs Temp Pulse Resp BP Pulse Ox 97.4 F L 82 18 159/95 99 11/12/19 10:08 11/12/19 10:08 11/12/19 10:08 11/12/19 10:08 11/12/19 10:08 Results - Labs 11/13/19 06:00 11/13/19 06:00 Abnormal Lab Results - Last 24 Hours (Table) 11/12/19 11/12/19 11/12/19 Range/Units 10:39 10:39 10:39 MCHC 30.8 L (31.0-37.0) g/dL Potassium 5.5 H (3.5-5.1) mmol/L Chloride 109 H (98-107) mmol/L Carbon Dioxide 20 L (22-30) mmol/L BUN 25 H (7-17) mg/dL Glucose 160 H (74-99) mg/dL Ur Leukocyte Esterase Small H (Negative) Urine Mucus Rare H (None) /hpf Diabetes panel 11/12/19 Range/Units 10:39 Sodium 138 (137-145) mmol/L Potassium 5.5 H (3.5-5.1) mmol/L Chloride 109 H (98-107) mmol/L Carbon Dioxide 20 L (22-30) mmol/L BUN 25 H (7-17) mg/dL Creatinine 1.00 (0.52-1.04) mg/dL Glucose 160 H (74-99) mg/dL Calcium 9.5 (8.4-10.2) mg/dL AST 28 (14-36) U/L ALT 15 (4-34) U/L Alkaline Phosphatase 123 (38-126) U/L Total Protein 7.0 (6.3-8.2) g/dL Albumin 4.2 (3.5-5.0) g/dL Calcium panel 11/12/19 Range/Units 10:39 Calcium 9.5 (8.4-10.2) mg/dL Albumin 4.2 (3.5-5.0) g/dL Pituitary panel 11/12/19 Range/Units 10:39 Sodium 138 (137-145) mmol/L Potassium 5.5 H (3.5-5.1) mmol/L Chloride 109 H (98-107) mmol/L Carbon Dioxide 20 L (22-30) mmol/L BUN 25 H (7-17) mg/dL Creatinine 1.00 (0.52-1.04) mg/dL Glucose 160 H (74-99) mg/dL Calcium 9.5 (8.4-10.2) mg/dL Adrenal panel 11/12/19 Range/Units 10:39 Sodium 138 (137-145) mmol/L Potassium 5.5 H (3.5-5.1) mmol/L Chloride 109 H (98-107) mmol/L Carbon Dioxide 20 L (22-30) mmol/L BUN 25 H (7-17) mg/dL Creatinine 1.00 (0.52-1.04) mg/dL Glucose 160 H (74-99) mg/dL Calcium 9.5 (8.4-10.2) mg/dL Total Bilirubin 0.5 (0.2-1.3) mg/dL AST 28 (14-36) U/L ALT 15 (4-34) U/L Alkaline Phosphatase 123 (38-126) U/L Total Protein 7.0 (6.3-8.2) g/dL Albumin 4.2 (3.5-5.0) g/dL
[2019-11-13 14:19] LABS: Hemoglobin A1C 6.2 % (4.0-6.0)
[2019-11-13 16:58] LABS: Glucose,Whole Blood 114 mg/dL (75-99)
[2019-11-13 19:56] LABS: Glucose,Whole Blood 136 mg/dL (75-99)
--- NOTE | 2019-11-13 22:59 | P.CONS ---
History of Present Illness - Reason for Consult Consult date: 11/13/19 abd pain Requesting physician: Reji Rangel - Chief Complaint epigastric pain - History of Present Illness Adriana Calderón is a 64 yo F with hx bowel obstruction and volvulus, s/p R hemicolectomy, abdominal adhesions who presented to the ED after experiencing acute epigastric pain. She states that she woke up yesterday with constant sharp abdominal pain that was similar to her last obstruction. She endorses nausea, denies vomiting and reports regular bowel movements. On admission her vitals and labs were unremarkable, CT nonspecific but with fluid filled loops adjacent to adhesions. Review of Systems All systems: negative Constitutional: Reports as per HPI, Denies chills, Denies fever Eyes: denies blurred vision, denies pain Ears, nose, mouth and throat: Denies headache, Denies sore throat Cardiovascular: Denies chest pain, Denies shortness of breath Respiratory: Denies cough Gastrointestinal: Reports as per HPI, Reports abdominal pain, Reports nausea, Reports vomiting, Denies diarrhea Genitourinary: Denies dysuria, Denies hematuria Musculoskeletal: Denies myalgias Integumentary: Denies pruritus, Denies rash Neurological: Denies numbness, Denies weakness Psychiatric: Denies anxiety, Denies depression Endocrine: Denies fatigue, Denies weight change Past Medical History Past Medical History: Coronary Artery Disease (CAD), Diabetes Mellitus, Eye Disorder, GERD/Reflux, Hyperlipidemia, Hypertension, Memory Impairment, Osteoarthritis (OA), Renal Disease, Vascular Disorder Additional Past Medical History / Comment(s): PUD, hiatal hernia, NIDDM type II, neuropathy occasionally in bilateral legs, chronic kidney disease stage IV, CAD- pt born with coronary blockages, PVD, 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 History of Any Multi-Drug Resistant Organisms: None Reported Past Surgical History: Hernia Repair Additional Past Surgical History / Comment(s): 04/2017 EGD/colonoscopy, past EGD/colonoscopy, L shoulder tendon surgery, L ankle closed reduction x2 and then ORIF, cardiac caths x2. Hemicolectomy Past Anesthesia/Blood Transfusion Reactions: No Reported Reaction Past Psychological History: Anxiety, Depression Smoking Status: Former smoker - Past Family History Mother Family Medical History: Cancer, CVA/TIA Additional Family Medical History / Comment(s): Mother of a CVA. She also had breast cancer and a pacemaker. Father Family Medical History: CVA/TIA, Myocardial Infarction ([place]) Additional Family Medical History / Comment(s): Father had a [place] at about age 80yrs. He is living. Brother(s) Family Medical History: Congestive Heart Failure (CHF) Additional Family Medical History / Comment(s): CABG Medications and Allergies Home Medications Medication Instructions Recorded Confirmed Type Sucralfate [Carafate] 1 gram PO QID 05/10/17 11/12/19 History traZODone HCL 50 mg PO HS 02/11/19 11/12/19 History Qulqsyp-Fwnh-Tqyu [id number] 1 tab PO BID PRN 11/12/19 11/12/19 History [Excedrin] Allergies Allergy/AdvReac Type Severity Reaction Status Date / Time sulfamethoxazole Allergy Unknown Verified 11/12/19 12:39 [From Bactrim] trimethoprim [From Bactrim] Allergy Unknown Verified 11/12/19 12:39 Physical Exam Vitals: Vital Signs Temp Pulse Resp BP Pulse Ox 11/13/19 21:00 97.7 F 69 18 177/91 97 11/13/19 11:58 97 F L 69 16 155/82 97 11/13/19 04:47 97.6 F 74 18 151/79 95 11/12/19 23:40 90 16 Intake and Output 11/13/19 11/13/19 11/13/19 06:59 14:59 22:59 Intake Total 800 800 Balance 800 800 Intake: Intake, IV Titration 800 800 Amount Dextrose 5%-0.45% NaCl 1, 800 800 000 ml @ 100 mls/hr IV . Q10H COUNT INCLUDES THE [facility] Rx#:[id number] Other: Voiding Method Toilet Toilet # Voids 1 3 Weight 88.451 kg General: well nourished, well developed, NAD. Vitals reviewed Eyes: PERRL, EOMI, conjunctiva normal HENT: normocephalic, mucus membranes moist Neck: supple, no JVD Lungs: normal respiratory effort, no wheezes or rales CV: Regular rate and rhythm, no murmur. Peripheral pulses 2+ Abdomen: soft, nondistended, no organomegaly. TTP LUQ, LLQ Lymph: no cervical or axillary LAD Skin: warm and dry. Neuro: A&Ox3, normal mood and affect Results CBC & Chem 7: 11/13/19 06:00 11/13/19 06:00 Labs: Abnormal Lab Results - Last 24 Hours (Table) 11/12/19 11/13/19 11/13/19 Range/Units 23:55 06:00 06:00 WBC 3.7 L (3.8-10.6) k/uL Chloride (98-107) mmol/L Glucose (74-99) mg/dL POC Glucose (mg/dL) 156 H (75-99) mg/dL Hemoglobin A1c 6.2 H (4.0-6.0) % Total Protein (6.3-8.2) g/dL Albumin (3.5-5.0) g/dL 11/13/19 11/13/19 11/13/19 Range/Units 06:00 06:55 11:16 WBC (3.8-10.6) k/uL Chloride 109 H (98-107) mmol/L Glucose 117 H (74-99) mg/dL POC Glucose (mg/dL) 123 H 151 H (75-99) mg/dL Hemoglobin A1c (4.0-6.0) % Total Protein 6.0 L (6.3-8.2) g/dL Albumin 3.4 L (3.5-5.0) g/dL 11/13/19 11/13/19 Range/Units 16:57 19:40 WBC (3.8-10.6) k/uL Chloride (98-107) mmol/L Glucose (74-99) mg/dL POC Glucose (mg/dL) 114 H 136 H (75-99) mg/dL Hemoglobin A1c (4.0-6.0) % Total Protein (6.3-8.2) g/dL Albumin (3.5-5.0) g/dL Microbiology - Last 24 Hours (Table) 11/12/19 10:39 Blood Culture - Preliminary Blood No Growth after 24 hours Assessment and Plan (1) Partial small bowel obstruction Current Visit: Yes Status: Acute Code(s): K56.600 - PARTIAL INTESTINAL OBSTRUCTION, UNSPECIFIED TO CAUSE SNOMED Code(s): 232888516 (2) Abdominal pain Current Visit: No Status: Acute Code(s): R10.9 - UNSPECIFIED ABDOMINAL PAIN SNOMED Code(s): 63023037 (3) Coronary artery disease Current Visit: No Status: Acute Code(s): I25.10 - ATHSCL HEART DISEASE OF [place] CORONARY ARTERY W/O ANG PCTRS SNOMED Code(s): 64852378 (4) Nausea Current Visit: No Status: Acute Code(s): R11.0 - NAUSEA SNOMED Code(s): 305973361 (5) Partial intestinal obstruction Current Visit: No Status: Acute Code(s): K56.600 - PARTIAL INTESTINAL OBSTRUCTION, UNSPECIFIED TO CAUSE SNOMED Code(s): 05347393904495609 (6) Type 2 diabetes mellitus Current Visit: No Status: Acute Code(s): E11.9 - TYPE 2 DIABETES MELLITUS WITHOUT COMPLICATIONS SNOMED Code(s): 46907809 Plan: 1. Partial SBO. IV fluids, zofran, pain control. Continue protonix. Surgery following 2. T2DM. Accucheck, sliding scale 3. CAD 4. GERD
[2019-11-14] MEDS: DEXTROSE 5%-0.45% NACL 1,000 ML IV SCH (05:51)
[2019-11-14 07:03] LABS: Glucose,Whole Blood 116 mg/dL (75-99)
[2019-11-14] MEDS: INSULIN ASPART (NovoLOG) 100 UNIT/ML VIAL SQ SCH ×2 (07:48→13:49)
[2019-11-14] MEDS: PANTOPRAZOLE 40 MG/10 ML VIAL IV SCH (07:51)
[2019-11-14] MEDS: HEPARIN SODIUM,PORCINE 5,000 UNIT/ML 1 ML VIAL SQ SCH (07:52)
--- NOTE | 2019-11-14 10:38 | P.PN ---
Subjective Progress Note Date: 11/14/19 Adriana Calderón is a 64 yo F with hx bowel obstruction and volvulus, s/p R hemicolectomy, abdominal adhesions who presented to the ED after experiencing acute epigastric pain. She states that she woke up yesterday with constant sharp abdominal pain that was similar to her last obstruction. She endorses nausea, denies vomiting and reports regular bowel movements. On admission her vitals and labs were unremarkable, CT nonspecific but with fluid filled loops adjacent to adhesions. 11/14/2019 significant clinical improvement. Up in chair, tolerating clear liquid diet with no nausea or vomiting. Blood sugars stable. Positive loose bowel movement this morning. Denies abdominal pain. Objective - Vital Signs Vital signs: Vital Signs Temp 97.7 F 11/14/19 04:38 Pulse 61 11/14/19 04:38 Resp 18 11/14/19 04:38 BP 148/72 11/14/19 04:38 Pulse Ox 98 11/14/19 04:38 Intake & Output 11/13/19 11/14/19 11/14/19 18:59 06:59 18:59 Intake Total 800 2150 Balance 800 2150 Weight 88.451 kg Intake: Intake, IV Titration 800 1200 Amount Dextrose 5%-0.45% NaCl 1, 800 1200 000 ml @ 100 mls/hr IV . Q10H [facility] Rx#:[id number] Oral 950 Other: Voiding Method Toilet Toilet # Voids 3 2 - Exam General: Sitting up in chair, no acute distress Eyes: PERRL, EOMI, conjunctiva normal HENT: normocephalic, mucus membranes moist Neck: supple, no JVD Lungs: normal respiratory effort, no wheezes or rales CV: Regular rate and rhythm, no murmur. Peripheral pulses 2+ Abdomen: soft, nondistended, no organomegaly. No guarding, positive bowel sounds. Skin: warm and dry. Neuro: A&Ox3, normal mood and affect - Labs CBC & Chem 7: 11/13/19 06:00 11/13/19 06:00 Labs: Abnormal Lab Results - Last 24 Hours (Table) 11/13/19 11/13/19 11/13/19 Range/Units 06:00 11:16 16:57 POC Glucose (mg/dL) 151 H 114 H (75-99) mg/dL Hemoglobin A1c 6.2 H (4.0-6.0) % 11/13/19 11/14/19 Range/Units 19:40 07:02 POC Glucose (mg/dL) 136 H 116 H (75-99) mg/dL Hemoglobin A1c (4.0-6.0) % Microbiology - Last 24 Hours (Table) 11/12/19 10:39 Blood Culture - Preliminary Blood No Growth after 24 hours Assessment and Plan Assessment: (1) Partial small bowel obstruction Current Visit: Yes Status: Acute Code(s): K56.600 - PARTIAL INTESTINAL OBSTRUCTION, UNSPECIFIED TO CAUSE SNOMED Code(s): 388089849 (2) Abdominal pain Current Visit: No Status: Acute Code(s): R10.9 - UNSPECIFIED ABDOMINAL PAIN SNOMED Code(s): 70387676 (3) Coronary artery disease Current Visit: No Status: Acute Code(s): I25.10 - ATHSCL HEART DISEASE OF [place] CORONARY ARTERY W/O ANG PCTRS SNOMED Code(s): 79096748 (4) Nausea Current Visit: No Status: Acute Code(s): R11.0 - NAUSEA SNOMED Code(s): 730736943 (5) Partial intestinal obstruction Current Visit: No Status: Acute Code(s): K56.600 - PARTIAL INTESTINAL OBSTRUCTION, UNSPECIFIED TO CAUSE SNOMED Code(s): 88200050552913898 (6) Type 2 diabetes mellitus Current Visit: No Status: Acute Code(s): E11.9 - TYPE 2 DIABETES MELLITUS WITHOUT COMPLICATIONS SNOMED Code(s): 35146690 Plan: Continue current medication regime ,monitoring and symptomatic treatment. Advance diet to soft residue at lunch. Anticipate potential discharge later this afternoon as per surgery. Follow-up with PCP in one week. The impression and plan of care has been dictated as directed. : I performed a history and examination of this patient, discussed the same with the dictator. I agree with the dictator's note ,documented as a scribe. Any additional findings or plans will be noted.
[2019-11-14 12:49] LABS: Glucose,Whole Blood 111 mg/dL (75-99)
--- NOTE | 2019-11-14 12:58 | P.DS ---
Providers Date of admission: 11/12/19 12:40 Expected date of discharge: 11/14/19 Attending physician: Reji Rangel Consults: 11/12/19 14:36 Consult Physician Routine Consulting Provider: Dmitry Lewis Consult Reason/Comments: medical management Do you want consulting provider notified?: Yes Primary care physician: Dmitry Lewis MD Hospital Course: 64-year-old female who presented to the emergency room with a chief complaint of abdominal pain. Patient reports she began having abdominal pain yesterday. Patient reports she is passing flatus. Denies having a bowel movement today. She denies nausea or vomiting. Denies fever or chills. Patient recently underwent laparoscopic robotic repair of incisional hernia and lysis of adhesions on 09/03/[address] abdomen and pelvis: Overall nonspecific but favor an obstructive bowel gas pattern. Cannot exclude new areas of mild uncomplicated acute colitis. Cannot exclude some areas of partial small bowel obstruction related to adhesions as there is some fluid-filled prominent small bowel loops in the lower abdomen and pelvis. No greater than 3.0 cm dilatation or significant proximal dilatation to suggest significant small bowel obstruction. Patient was started on a clear liquid diet advance as tolerated. She is tolerating well. Abdominal pain has resolved. She is stable for discharge home per Dr. Rangel. Please see EMR for further hospital course details. DC Diagnosis: 1. Abdominal pain 2. Acute colitis 3. Possible developing small bowel obstruction, although unlikely 4. History of laparoscopic robotic repair of incisional hernia and lysis of adhesions on 09/03/2019 5. History of right colectomy secondary to colonic obstruction due to right c olon volvulus, January 2019 Nurse practitioner note has been reviewed by physician. Signing provider agrees with the documented findings, assessment, and plan of care. Patient Condition at Discharge: Stable Plan - Discharge Summary Discharge Rx Participant: No New Discharge Prescriptions: No Action Sucralfate [Carafate] 1 gram PO QID traZODone HCL 50 mg PO HS [id number] [id number] [Excedrin] 1 tab PO BID PRN PRN Reason: Migraine Headache Discharge Medication List Sucralfate [Carafate] 1 gram PO QID 05/10/17 [History] traZODone HCL 50 mg PO HS 02/11/19 [History] Dkisltj-Trkf-Pmeb [id number] [Excedrin] 1 tab PO BID PRN 11/12/19 [History] Follow up Appointment(s)/Referral(s): Dmitry Lewis MD [Primary Care Provider] - 1-2 days Reji Rangel MD [STAFF PHYSICIAN] - 1 Week
[2019-11-14 13:54] VITALS: BP 146/84; PULSE 72; RESP 20; TEMP 98.2
== END 2019-11-14 13:58 | disposition home or self-care (01) | DRG 392 ==
LOC: EC 10:04 → 5NMEDONC 12:40 → 6PED 11-14 10:51
PROVIDERS: ADMIT Surgery; ATTEND Surgery
DX: K52.9 Noninfective gastroenteritis and colitis, unspecified (principal); E11.9 Type 2 diabetes mellitus without complications; E78.5 Hyperlipidemia, unspecified; F32.9 Major depressive disorder, single episode, unspecified; F41.9 Anxiety disorder, unspecified; I10 Essential (primary) hypertension; K21.9 Gastro-esophageal reflux disease without esophagitis; I25.10 Atherosclerotic heart disease of native coronary artery without angina pectoris; Z11.59 Encounter for screening for other viral diseases; Z79.82 Long term (current) use of aspirin; Z80.3 Family history of malignant neoplasm of breast; Z82.3 Family history of stroke; Z82.49 Family history of ischemic heart disease and other diseases of the circulatory system; Z87.891 Personal history of nicotine dependence
CPT/HCPCS: 36415; 74177; 80053; 81001; 82150; 83036; 83605; 83690; 85025; 87040; 87635; 96361; 96374; 96375; 99285

== ENCOUNTER 2019-12-06 22:16 | Emergency (ER) | payer BC ==
[2019-12-06] MEDS ORDERED: MORPHINE SULFATE 4 MG/ML SYRINGE IV STA (23:01)
[2019-12-06] MEDS ORDERED: ONDANSETRON 4 MG/2 ML VIAL IVP STA (23:01)
[2019-12-06] MEDS ORDERED: SODIUM CHLORIDE 0.9% 1,000 ML IV STA (23:01)
--- NOTE | 2019-12-06 23:10 | ED ---
Abdominal Pain HPI - General Source: patient Mode of arrival: ambulatory Limitations: no limitations <William Erazo - Last Filed: 12/07/19 01:09> <Jose G Bright - Last Filed: 12/07/19 04:48> - General Chief Complaint: Abdominal Pain Stated Complaint: Abdominal pain Time Seen by Provider: 12/06/19 22:43 - History of Present Illness Initial Comments: Patient is 64-year-old female history of intestinal obstruction presenting to emergency Department with a chief complaint of abdominal pain. Patient reports pain started in the left upper quadrant and epigastric region yesterday. Patient states the pain is constant and sharp in nature with occasional radiation to the back. Patient reports the pain is not related to by mouth intake. Patient reports bowel resection 6 months ago. States 2 days ago she's had one solid bowel movement. States yesterday no bowel movements. States that she had a small bowel movement. Denies any urinary or vaginal symptoms. As reports some abdominal distention. Does report nausea but no vomiting. Denies any night sweats fever or chills. Patient denies focal deficits. (William Erazo) - Related Data Home Medications Medication Instructions Recorded Confirmed Sucralfate [Carafate] 1 gram PO QID 05/10/17 11/12/19 traZODone HCL 50 mg PO HS 02/11/19 11/12/19 [id number] 1 tab PO BID PRN 11/12/19 11/12/19 [Excedrin] Previous Rx's Medication Instructions Recorded Dicyclomine [Bentyl] 20 mg PO QID #15 tablet 12/07/19 Allergies Allergy/AdvReac Type Severity Reaction Status Date / Time morphine Allergy Rash/Hives Verified 12/07/19 00:32 sulfamethoxazole Allergy Unknown Verified 11/12/19 12:39 [From Bactrim] trimethoprim [From Bactrim] Allergy Unknown Verified 11/12/19 12:39 Review of Systems ROS Other: All systems not noted in ROS Statement are negative. <William Erazo - Last Filed: 12/07/19 01:09> ROS Other: All systems not noted in ROS Statement are negative. <Jose G Bright - Last Filed: 12/07/19 04:48> ROS Statement: Those systems with pertinent positive or pertinent negative responses have been documented in the HPI. 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 History of Any Multi-Drug Resistant Organisms: None Reported Past Surgical History: Hernia Repair Additional Past Surgical History / Comment(s): 04/2017 EGD/colonoscopy, past EGD/colonoscopy, L shoulder tendon surgery, L ankle closed reduction x2 and then ORIF, cardiac caths x2. Hemicolectomy Past Anesthesia/Blood Transfusion Reactions: No Reported Reaction Past Psychological History: Anxiety, Depression Smoking Status: Former smoker Past Alcohol Use History: Rare - Past Family History Mother Family Medical History: Cancer, CVA/TIA Additional Family Medical History / Comment(s): Mother of a CVA. She also had breast cancer and a pacemaker. Father Family Medical History: CVA/TIA, Myocardial Infarction ([place]) Additional Family Medical History / Comment(s): Father had a [place] at about age 80y rs. He is living. Brother(s) Family Medical History: Congestive Heart Failure (CHF) Additional Family Medical History / Comment(s): CABG <William Erazo - Last Filed: 12/07/19 01:09> General Exam Limitations: no limitations General appearance: alert, in no apparent distress, obese Head exam: Present: atraumatic, normocephalic, normal inspection Eye exam: Present: normal appearance, PERRL, EOMI Pupils: Present: normal accommodation ENT exam: Present: normal exam, normal oropharynx, mucous membranes moist Neck exam: Present: normal inspection, full ROM Respiratory exam: Present: normal lung sounds bilaterally. Absent: respiratory distress, wheezes Cardiovascular Exam: Present: regular rate, normal rhythm, normal heart sounds GI/Abdominal exam: Present: soft, tenderness (Epigastric and left upper quadrant). Absent: distended Extremities exam: Present: normal inspection, full ROM Back exam: Present: normal inspection, full ROM. Absent: tenderness, CVA tenderness (R), CVA tenderness (L) Neurological exam: Present: alert, oriented X3 Psychiatric exam: Present: normal affect, normal mood Skin exam: Present: warm, dry, intact, normal color <William Erazo - Last Filed: 12/07/19 01:09> Course Vital Signs 12/06/19 12/07/19 12/07/19 22:18 01:26 03:04 Temperature 97.9 F 97.4 F L Pulse Rate 83 77 90 Respiratory 18 17 18 Rate Blood Pressure 135/93 153/80 158/88 O2 Sat by Pulse 100 98 98 Oximetry 12/07/19 04:18 Temperature 97.7 F Pulse Rate 81 Respiratory 17 Rate Blood Pressure 134/75 O2 Sat by Pulse 95 Oximetry Medical Decision Making - Lab Data Result diagrams: 12/06/19 23:08 12/06/19 23:08 <William Erazo - Last Filed: 12/07/19 01:09> - Lab Data Result diagrams: 12/06/19 23:08 12/06/19 23:08 <Jose G Bright - Last Filed: 12/07/19 04:48> - Medical Decision Making Patient care signed off to Dr Bright (William Erazo) I saw this patient in conjunction with the physician construction assistant. I performed independent history and physical exam. Agree with case management. On reevaluation, the patient is feeling better following analgesia. The computed tomography scan is not showing evidence of acute surgical condition or of developing obstruction. Discussed the findings and at this point the patient would like to go home. She did request something to take to facilitate bowel movement and after discussions she will elects magnesium citrate. We'll provide this and also Bentyl. Discussed the appropriate follow-up and further care as well as return parameters. (Jose G Bright) - Lab Data Lab Results 12/06/19 12/06/19 12/06/19 Range/Units 23:08 23:08 23:08 WBC 5.0 (3.8-10.6) k/uL RBC 4.30 (3.80-5.40) m/uL Hgb 13.2 (11.4-16.0) gm/dL Hct 41.5 (34.0-46.0) % MCV 96.5 (80.0-100.0) fL MCH 30.7 (25.0-35.0) pg MCHC 31.9 (31.0-37.0) g/dL RDW 13.2 (11.5-15.5) % Plt Count 240 (150-450) k/uL Neutrophils % 58 % Lymphocytes % 31 % Monocytes % 5 % Eosinophils % 3 % Basophils % 1 % Neutrophils # 2.9 (1.3-7.7) k/uL Lymphocytes # 1.5 (1.0-4.8) k/uL Monocytes # 0.3 (0-1.0) k/uL Eosinophils # 0.1 (0-0.7) k/uL Basophils # 0.1 (0-0.2) k/uL Sodium 138 (137-145) mmol/L Potassium 4.3 (3.5-5.1) mmol/L Chloride 107 (98-107) mmol/L Carbon Dioxide 26 (22-30) mmol/L Anion Gap 5 mmol/L BUN 27 H (7-17) mg/dL Creatinine 1.04 (0.52-1.04) mg/dL Est GFR (CKD-EPI)AfAm 66 (>60 ml/min/1.73 sqM) Est GFR (CKD-EPI)NonAf 58 (>60 ml/min/1.73 sqM) Glucose 132 H (74-99) mg/dL Calcium 9.4 (8.4-10.2) mg/dL Total Bilirubin 0.2 (0.2-1.3) mg/dL AST 22 (14-36) U/L ALT 14 (4-34) U/L Alkaline Phosphatase 100 (38-126) U/L Total Protein 6.7 (6.3-8.2) g/dL Albumin 4.0 (3.5-5.0) g/dL Lipase 272 (23-300) U/L Urine Color Yellow Urine Appearance Clear (Clear) Urine pH 5.5 (5.0-8.0) Ur Specific [place] 1.022 (1.001-1.035) Urine Protein Negative (Negative) Urine Glucose (UA) Negative (Negative) Urine Ketones Negative (Negative) Urine Blood Negative (Negative) Urine Nitrite Negative (Negative) Urine Bilirubin Negative (Negative) Urine Urobilinogen 2.0 (<2.0) mg/dL Ur Leukocyte Esterase Large H (Negative) Urine RBC 2 (0-5) /hpf Urine WBC 6 H (0-5) /hpf Ur Squamous Epith Cells 4 (0-4) /hpf Hyaline Casts 1 (0-2) /lpf Urine Mucus Rare H (None) /hpf Disposition <William Erazo - Last Filed: 12/07/19 01:09> Is patient prescribed a controlled substance at d/c from ED?: No <Jose G Bright - Last Filed: 12/07/19 04:48> Clinical Impression: Abdominal pain Disposition: HOME SELF-CARE Condition: Good Instructions (If sedation given, give patient instructions): Abdominal Pain (ED) Prescriptions: Dicyclomine [Bentyl] 20 mg PO QID #15 tablet Referrals: Karen Snowden DO [Primary Care Provider] - 1-2 days Reji Rangel MD [STAFF PHYSICIAN] - 1-2 days
[2019-12-06 23:22] LABS: Basophils # (A) 0.1 k/uL (0-0.2); Basophils % (A) 1 %; Eosinophils # (A) 0.1 k/uL (0-0.7); Eosinophils % (A) 3 %; HCT 41.5 % (34.0-46.0); HGB 13.2 gm/dL (11.4-16.0); Lymphocytes # (A) 1.5 k/uL (1.0-4.8); Lymphocytes % (A) 31 %; MCH 30.7 pg (25.0-35.0); MCHC 31.9 g/dL (31.0-37.0); MCV 96.5 fL (80.0-100.0); Mean Platelet Volume 7.1; Monocytes # (A) 0.3 k/uL (0-1.0); Monocytes % (A) 5 %; Neutrophils # (A) 2.9 k/uL (1.3-7.7); Neutrophils % (A) 58 %; Platelet Count 240 k/uL (150-450); RDW 13.2 % (11.5-15.5)
[2019-12-06 23:32] LABS: Calcium 9.4 mg/dL (8.4-10.2); Potassium 4.3 mmol/L (3.5-5.1); Total Bilirubin 0.2 mg/dL (0.2-1.3); Total Protein 6.7 g/dL (6.3-8.2)
[2019-12-06 23:48] LABS: Appearance,Urine Clear (Clear); Bilirubin,Urine Negative (Negative); Blood,Urine Negative (Negative); Color,Urine Yellow; Glucose,Urine (UA) Negative (Negative); Hyaline Casts,Urine 1 /lpf (0-2); Ketones,Urine Negative (Negative); Leukocyte Esterase,Urine Large (Negative); Mucus,Urine Rare /hpf; Nitrite,Urine Negative (Negative); PH, Urine 5.5 (5.0-8.0); Protein,Urine Negative (Negative); RBC,Urine 2 /hpf (0-5); Specific Gravity,Urine 1.022 (1.001-1.035); Squamous Epithelial Cell,Urine 4 /hpf (0-4); WBC,Urine 6 /hpf (0-5)
[2019-12-07] MEDS ORDERED: diphenhydrAMINE 50 MG/ML 1 ML VIAL IVP STA (00:01)
--- NOTE | 2019-12-07 00:29 | XR ---
EXAMINATION TYPE: XR KUB DATE OF EXAM: 12/06/2019 COMPARISON: 09/06/2019 HISTORY: Abdominal pain TECHNIQUE: 2 views FINDINGS: 2 views upright show no sign of intestinal obstruction or pneumoperitoneum. Fecal pattern i s normal. There is no sign of a mass. There are clips from cholecystectomy. Lung bases are clear. The re are no pathologic calcifications. IMPRESSION: Nonacute abdomen. No change.
--- NOTE | 2019-12-07 01:27 | CT ---
EXAMINATION TYPE: CT abdomen pelvis w con DATE OF EXAM: 12/07/2019 COMPARISON: 11/12/2019 HISTORY: Epigastric pain CT DLP: 1146.5 mGycm Automated exposure control for dose reduction was used. CONTRAST: Performed with IV Contrast, patient injected with 80 mL of Isovue 300. Images were obtained from the diaphragm to the floor the pelvis with IV contrast. There is minimal subsegmental atelectasis right posterior lung base. There is no pleural effusion. Th ere is no pericardial effusion. Heart is borderline enlarged. Stomach is intact. There are clips from cholecystectomy. Liver shows no focal defect. Spleen is intac t. The bile ducts are not dilated. There is no evidence of pancreatic mass. There is no adrenal mass. Kidneys show satisfactory contrast opacification. There is no hydronephrosi s. There is 3 cm cortical cyst posterior left kidney. Ureters are not dilated. There is no retroperit [place] adenopathy. Bladder distends smoothly. There is no inguinal hernia. Uterus is anteverted. There is no evidence of a pelvic mass. There is right hemicolectomy with anastomosis in the mid transverse colon. I see no evidence of a bowel obstruction. There is no mesenteric edema. There is no ascites o r free air. Jejunum measures up to 2.5 cm. I do not see evidence for a bowel obstruction. Distal smal l bowel is not dilated. Lumbar vertebra have normal alignment. There is no compression fracture. The bony pelvis appears inta ct. IMPRESSION: Previous surgery. No evidence of a bowel obstruction. There is decreased abdominal small bowel disten tion compared to old exam. I do not see evidence for an acute abdomen.
[2019-12-07] MEDS ORDERED: DICYCLOMINE 10 MG/ML 2 ML AMP IM STA (02:52)
[2019-12-07 04:19] VITALS: BP 134/75; PULSE 81; RESP 17; TEMP 97.7
[2019-12-07] MEDS ORDERED: MAGNESIUM CITRATE 296 ML BOTTLE PO ONE (04:23)
== END 2019-12-07 04:48 | disposition home or self-care (01) ==
LOC: EC 22:16
DX: R10.12 Left upper quadrant pain (principal); R10.13 Epigastric pain; R11.0 Nausea; F32.9 Major depressive disorder, single episode, unspecified; F41.9 Anxiety disorder, unspecified; I25.10 Atherosclerotic heart disease of native coronary artery without angina pectoris; N18.4 Chronic kidney disease, stage 4 (severe); E11.22 Type 2 diabetes mellitus with diabetic chronic kidney disease; I12.9 Hypertensive chronic kidney disease with stage 1 through stage 4 chronic kidney disease, or unspecified chronic kidney disease; E11.42 Type 2 diabetes mellitus with diabetic polyneuropathy; E11.51 Type 2 diabetes mellitus with diabetic peripheral angiopathy without gangrene; Q24.5 Malformation of coronary vessels; Z79.899 Other long term (current) drug therapy; Z88.2 Allergy status to sulfonamides; Z88.5 Allergy status to narcotic agent; Z87.891 Personal history of nicotine dependence
CPT/HCPCS: 99284; 96374; 96375 ×2; 96372; 96361 ×4; 36415; 80053; 83690; 85025; 81001; 74018; 74177; J2270; J1200; J0500; J2405; Q9967

== ENCOUNTER 2019-12-18 08:03 | Day surgery (SDC) | payer BC ==
[2019-12-17 09:12] VITALS: BMI 39.4
[~2019-12-18 08:03] MED LIST changes: -DEXAMETHASONE SOD PHOSPHATE 10 MG/ML 1 ML VIAL IV ONE; -HEPARIN SODIUM,PORCINE 5,000 UNIT/ML 1 ML VIAL SQ ONE; -HYDROmorphone 0.5 MG/0.5 ML SYRINGE IVP PRN; -MIDAZOLAM 2 MG/2 ML VIAL IV PRN; -ONDANSETRON 4 MG/2 ML VIAL IVP ONE; -SCOPOLAMINE 1.5MG/72HR PATCH TRANSDERM ONE
--- NOTE | 2019-12-18 08:27 | P.GSHP ---
History of Present Illness H&P Date: 12/18/19 Chief Complaint: GERD, colitis This 64-year-old female who presents today for EGD colonoscopy. Patient had previous history of right colectomy. Ligament. And increase frequent bowel movements. 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 Hemicolectomy , BILAT CATARACT SX Past Anesthesia/Blood Transfusion Reactions: No Reported Reaction Smoking Status: Former smoker - Past Family History Mother Family Medical History: Cancer, CVA/TIA Additional Family Medical History / Comment(s): Mother of a CVA. She also had breast cancer and a pacemaker. Father Family Medical History: CVA/TIA, Myocardial Infarction ([place]) Additional Family Medical History / Comment(s): Father had a [place] at about age 80yrs. He is living. Brother(s) Family Medical History: Congestive Heart Failure (CHF) Additional Family Medical History / Comment(s): CABG Medications and Allergies Home Medications Medication Instructions Recorded Confirmed Type Sucralfate [Carafate] 1 gram PO BID 05/10/17 12/17/19 History traZODone HCL 50 mg PO HS 02/11/19 12/17/19 History Allergies Allergy/AdvReac Type Severity Reaction Status Date / Time morphine Allergy Rash/Hives Verified 12/18/19 08:14 sulfamethoxazole Allergy ABD PAIN Verified 12/18/19 08:14 [From Bactrim] trimethoprim [From Bactrim] Allergy Abdominal Verified 12/18/19 08:14 Pain Surgical - Exam - General well developed, well nourished, no distress - Eyes PERRL - ENT normal pinna - Neck no masses - Respiratory normal expansion - Cardiovascular Rhythm: regular - Abdomen Midline incision Abdomen: soft, non tender Assessment and Plan Assessment: GERD history of colitis. We'll perform EGD colonoscopy
[2019-12-18 08:30] VITALS: TEMP 98.1
[2019-12-18 08:33] LABS: Glucose,Whole Blood 136 mg/dL (75-99)
[2019-12-18] MEDS ORDERED: PROPOFOL 10 MG/ML 20 ML VIAL IV ONE (08:35)
[2019-12-18 08:52] VITALS: RESP 16
--- NOTE | 2019-12-18 08:52 | P.OP ---
Date of Procedure: 12/18/19 Preoperative Diagnosis: Colitis GERD Postoperative Diagnosis: Antral gastritis Hiatal hernia Mild esophagitis Normal colonoscopy sessile was right colectomy Procedure(s) Performed: EGD Colonoscopy Anesthesia: MAC Surgeon: Reji Rangel Pathology: other (Antrum, esophagus) Condition: stable Disposition: PACU Description of Procedure: The patient's placed on the endoscopy table in the lateral position. She received IV sedation. The gastro-/oropharynx and passed in the esophagus into the stomach. Scope was then placed through the pylorus. The first second portion of duodenum appeared normal. Scope was then brought back the antrum and this was mildly inflamed. A biopsies performed. Scope was unretroflexed and remainder of the stomach appeared normal. There was a moderate size hiatal hernia. The GE junction was at 40 cm. The distal esophagus about inflamed a biopsies performed. The proximal esophagus appeared normal. Scope was withdrawn for patient. Next digital rectal exam was performed which revealed no ebonized. The flexible clot scope was then placed patient anus passed with colon. The patient appears right colectomy. The ileocolonic anastomosis visualized. The transverse colon, descending colon and sigmoid colon appeared normal. Scope was then brought back the rectum and this appeared normal. Scope withdrawn for patient.
[2019-12-18 09:11] VITALS: BP 154/83; PULSE 84
== END 2019-12-18 09:31 | disposition home or self-care (01) ==
LOC: ORWHC2ENDO 08:03
PROVIDERS: ATTEND Surgery
DX: K29.50 Unspecified chronic gastritis without bleeding (principal); K21.0 Gastro-esophageal reflux disease with esophagitis; K44.9 Diaphragmatic hernia without obstruction or gangrene; Z87.19 Personal history of other diseases of the digestive system; I12.9 Hypertensive chronic kidney disease with stage 1 through stage 4 chronic kidney disease, or unspecified chronic kidney disease; I25.10 Atherosclerotic heart disease of native coronary artery without angina pectoris; E78.5 Hyperlipidemia, unspecified; I73.9 Peripheral vascular disease, unspecified; E11.22 Type 2 diabetes mellitus with diabetic chronic kidney disease; N18.4 Chronic kidney disease, stage 4 (severe); M19.90 Unspecified osteoarthritis, unspecified site; R41.3 Other amnesia; E66.01 Morbid (severe) obesity due to excess calories; E11.40 Type 2 diabetes mellitus with diabetic neuropathy, unspecified; Z88.5 Allergy status to narcotic agent; Z88.2 Allergy status to sulfonamides; Z79.899 Other long term (current) drug therapy; Z68.39 Body mass index [BMI] 39.0-39.9, adult; Z90.49 Acquired absence of other specified parts of digestive tract; Z98.41 Cataract extraction status, right eye; Z98.42 Cataract extraction status, left eye; Z98.890 Other specified postprocedural states; Z87.891 Personal history of nicotine dependence; Z87.11 Personal history of peptic ulcer disease; Z82.49 Family history of ischemic heart disease and other diseases of the circulatory system; Z80.3 Family history of malignant neoplasm of breast
CPT/HCPCS: 88305; 45378; 43239; J2704

== ENCOUNTER 2020-01-05 06:05 | Inpatient (IN) | payer BC ==
[~2020-01-05 06:05] MED LIST changes: +ACETAMINOPHEN TAB 500 MG TAB PO ONE; +DEXAMETHASONE SOD PHOSPHATE 10 MG/ML 1 ML VIAL IV ONE; +HEPARIN SODIUM,PORCINE 5,000 UNIT/ML 1 ML VIAL SQ ONE; -LACTATED RINGERS 1,000 ML IV SCH; +LIDOCAINE 1% (10MG/ML) FOR IV START INTRADERMA PRN; +MIDAZOLAM 2 MG/2 ML VIAL IV PRN
[2020-01-05] MEDS ORDERED: ACETAMINOPHEN TAB 500 MG TAB ONE (06:12)
[2020-01-05] MEDS ORDERED: HEPARIN SODIUM,PORCINE 5,000 UNIT/ML 1 ML VIAL ONE (06:12)
[2020-01-05 06:37] LABS: Glucose,Whole Blood 137 mg/dL (75-99)
[2020-01-05] MEDS: LACTATED RINGERS 1,000 ML IV SCH ×3 (06:39→23:03)
[2020-01-05] MEDS ORDERED: DEXAMETHASONE SOD PHOSPHATE 10 MG/ML 1 ML VIAL IV ONE (06:40)
[2020-01-05] MEDS ORDERED: SUCCINYLCHOLINE CHLORIDE 100 MG/5 ML SYR IV ONE (07:33)
[2020-01-05] MEDS ORDERED: GLYCOPYRROLATE 0.2 MG/ML 2 ML VIAL ONE (07:33)
[2020-01-05] MEDS ORDERED: PROPOFOL 10 MG/ML 20 ML VIAL IV ONE (07:33)
[2020-01-05] MEDS ORDERED: MIDAZOLAM 2 MG/2 ML VIAL ONE (07:33)
[2020-01-05] MEDS ORDERED: fentaNYL (PF) 50 MCG/ML 2 ML AMP ONE (07:33)
[2020-01-05] MEDS ORDERED: ROCURONIUM BROMIDE 10 MG/ML 5 ML VIAL IV ONE (07:33)
[2020-01-05] MEDS ORDERED: LIDOCAINE 1% INJ 10MG/ML (20 ML MDV) ONE (07:33)
[2020-01-05] MEDS ORDERED: NEOSTIGMINE 1 MG/ML 10 ML VIAL ONE (07:33)
--- NOTE | 2020-01-05 07:53 | P.GSHP ---
History of Present Illness H&P Date: 01/05/20 Chief Complaint: GERD This a 64-year-old female who referred from Dr. Karen Snowden. NiThe patient has had long-standing problems with reflux esophagitis. The patient underwent recent EGD is found have evidence of esophagitis. Patient has been well informed on the procedure of laparoscopic Josephine fundoplication. The patient is aware the risk of the conversion to the open procedure, risk of injury to the stomach, liver and spleen. The patient is also a risk of recurrent GERD and dysphagia symptoms. The patient understands there is a postoperative diet of full liquids for 2 weeks after surgery. 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 bowel resection for obstruction, amalia cataracts, Past Anesthesia/Blood Transfusion Reactions: No Reported Reaction Smoking Status: Former smoker - Past Family History Mother Family Medical History: Cancer, CVA/TIA, Pulmonary Embolus Additional Family Medical History / Comment(s): breast cancer Father Family Medical History: CVA/TIA, Myocardial Infarction ([place]) Additional Family Medical History / Comment(s): . Brother(s) Family Medical History: Congestive Heart Failure (CHF) Additional Family Medical History / Comment(s): CABG Medications and Allergies Home Medications Medication Instructions Recorded Confirmed Type Sucralfate [Carafate] 1 gram PO BID 05/10/17 01/05/20 History traZODone HCL 50 mg PO HS 02/11/19 01/05/20 History Allergies Allergy/AdvReac Type Severity Reaction Status Date / Time morphine Allergy Rash/Hives Verified 01/01/20 08:55 sulfamethoxazole Allergy ABD PAIN Verified 01/01/20 08:55 [From Bactrim] trimethoprim [From Bactrim] Allergy Abdominal Verified 01/01/20 08:55 Pain Surgical - Exam Vital Signs Temp Pulse Resp BP Pulse Ox 97.6 F 80 16 155/87 98 01/05/20 06:23 01/05/20 06:23 01/05/20 06:23 01/05/20 06:23 01/05/20 06:23 - General well developed, well nourished, no distress - Eyes PERRL - ENT normal pinna - Neck no masses - Respiratory normal expansion - Cardiovascular Rhythm: regular - Abdomen Abdomen: soft, non tender Results - Labs Abnormal Lab Results - Last 24 Hours (Table) 01/05/20 Range/Units 06:35 POC Glucose (mg/dL) 137 H (75-99) mg/dL Assessment and Plan Assessment: GERD. We'll perform laparoscopic Josephine fundal plication.
[2020-01-05] MEDS ORDERED: BUPIVACAIN-EPI 0.25%-1:200,000 30 ML VIAL SQ ONE (08:05)
[2020-01-05] MEDS ORDERED: LACTATED RINGERS 1,000 ML IV ONE (08:10)
[2020-01-05] MEDS ORDERED: HYDROmorphone 1 MG/ML 1 ML SYRINGE IVP PRN (08:43)
--- NOTE | 2020-01-05 08:43 | P.OP ---
Date of Procedure: 01/05/20 Preoperative Diagnosis: GERD Postoperative Diagnosis: GERD Procedure(s) Performed: Laparoscopic Josephine fundal plication Anesthesia: WILLY Surgeon: Reji Rangel Pathology: none sent Condition: stable Disposition: PACU Description of Procedure: Juanis patient was placed on the operating table in the supine position. The patient received general anesthesia. And was placed in dorsal lithotomy position. The patient was prepped and draped in the usual sterile fashion. The skin incision sites were anesthetized with 1% local Xylocaine. The skin was incised in the left periumbilical area and then using a blade less 5 mm trocar under direct visualization panel cavity was entered. After adequate insufflation the laparoscope was then placed into the peritoneal cavity. Next a 5 mm trochars placed in the right epigastric position. Another 5 millimeter trocar the right lateral position. Another 5 millimeter trocar in the left lateral position a 5 mm trocar is placed in the left epigastric position. And then the initial 5 mm trocar was exchanged for a 10 mm trocar. The left lateral lobe liver was retracted. The hernia was seen. The crural defect was then dissected using the Harmonic scissors device. A 360 crural dissection was performed the esophagus stomach was reduced back into the peritoneal Cavity. The crural defect was then closed using 2-0 Ethibond suture. Next the fundus of the stomach was mobilized using the [place] scissors device. and then a 58- [place] bougie dilator was placed oropharynx passed into the esophagus and stomach the fundal plication wrap was then performed by grasping the fundus posteriorly and bringing it around the esophagus and stomach fundoplication was then performed using 2-0 Ethibond suture. Care was taken that the fundal location rested over top of the intra-abdominal esophagus. There was no injury seen to the stomach or esophagus. The dilator was then withdrawn. The abdomen was irrigated there is no bleeding seen. The trochars were then withdrawn and then skin incision sites were closed using 3-0 Monocryl suture Steri-Strips are applied. Patient thought procedure well and sent to recovery room in stable condition.
[2020-01-05] MEDS: HYDROmorphone 0.5 MG/0.5 ML SYRINGE IVP PRN ×4 (08:52→09:12)
[2020-01-05] MEDS ORDERED: ONDANSETRON 4 MG/2 ML VIAL IVP ONE (09:02)
[2020-01-05] MEDS ORDERED: diphenhydrAMINE 50 MG/ML 1 ML VIAL IVP ONE (09:16)
[2020-01-05] MEDS: fentaNYL (PF) 50 MCG/ML 2 ML AMP IVP PRN ×2 (09:22→09:26)
[2020-01-05] MEDS: D5-0.45% NACL WITH KCL 20MEQ/L 1,000 ML IV SCH ×2 (11:29→21:39)
[2020-01-05] MEDS: METOCLOPRAMIDE 5 MG/ML 2 ML VIAL IVP SCH ×2 (11:30→18:09)
--- NOTE | 2020-01-05 15:20 | FL ---
EXAMINATION TYPE: FL esophagus cervic/pharynx DATE OF EXAM: 01/05/2020 HISTORY: Status post Josephine fundoplication COMPARISON: NONE TECHNIQUE: A single contrast esophagram is performed utilizing air and barium. FINDINGS: Attention directed to the gastroesophageal junction. There is no obstruction to flow. Postop changes are noted at the gastroesophageal junction. There is no evident leak. Some tertiary esophageal contra ctions noted. Patient is post cholecystectomy. 26 seconds fluoroscopy time, 4 images document the procedure IMPRESSION: No evident comp occasions status post Josephine fundoplication.
[2020-01-05] MEDS: ACETAMINOPHEN TAB 325 MG TAB PO PRN (18:45)
[2020-01-05 20:24] LABS: Glucose,Whole Blood 151 mg/dL (75-99)
[2020-01-05] MEDS ORDERED: traZODone HCL 50 MG TAB PO SCH (21:00)
[2020-01-06 00:13] VITALS: RESP 18; TEMP 98.2
[2020-01-06] MEDS: ACETAMINOPHEN TAB 325 MG TAB PO PRN (04:14)
[2020-01-06] MEDS: METOCLOPRAMIDE 5 MG/ML 2 ML VIAL IVP SCH ×3 (06:27→11:53)
[2020-01-06 08:03] VITALS: BP 143/83; PULSE 110
[2020-01-06] MEDS ORDERED: ENOXAPARIN 40 MG/0.4 ML SYRINGE SQ SCH (09:00)
[2020-01-06] MEDS: D5-0.45% NACL WITH KCL 20MEQ/L 1,000 ML IV SCH ×2 (09:42)
[2020-01-06 10:30] VITALS: BMI 39.6
--- NOTE | 2020-01-06 12:25 | P.DS ---
Providers Date of admission: 01/05/20 06:05 Expected date of discharge: 01/06/20 Attending physician: Reji Rangel Consults: 01/05/20 08:43 Consult Physician Routine Consulting Provider: Dmitry Lewis Consult Reason/Comments: Medical management Do you want consulting provider notified?: Yes Primary care physician: Karen [facility] Course: This is a 64-year-old female who underwent laparoscopic Josephine fundal plication yesterday. Patient did well postop. Please hospital for details. Procedures: Laparoscopic Josephine fundoplication Patient Condition at Discharge: Good Plan - Discharge Summary Discharge Rx Participant: No New Discharge Prescriptions: New Docusate [Colace] 100 mg PO BID #20 capsule HYDROcodone/APAP 5-325MG [Trent 5-325] 1 tab PO Q6HR PRN #10 tab PRN Reason: Pain No Action Sucralfate [Carafate] 1 gram PO BID traZODone HCL 50 mg PO HS Discharge Medication List Sucralfate [Carafate] 1 gram PO BID 05/10/17 [History] traZODone HCL 50 mg PO HS 02/11/19 [History] Docusate [Colace] 100 mg PO BID #20 capsule 01/06/20 [Rx] HYDROcodone/APAP 5-325MG [Trent 5-325] 1 tab PO Q6HR PRN #10 tab 01/06/20 [Rx] Follow up Appointment(s)/Referral(s): Reji Rangel MD [STAFF PHYSICIAN] - 1 Week Discharge Disposition: HOME SELF-CARE
--- NOTE | 2020-01-06 14:42 | P.CONS ---
History of Present Illness - Reason for Consult Consult date: 01/06/20 medical eval - Chief Complaint GERD - History of Present Illness Adriana Calderón is a 64 yo F with hx HTN, HLD, bowel resection who is admitted with symptomatic GERD. She is POD#1 after scheduled josephine fundoplication, doing well today. She has started clear liquid diet, tolerating well, denies nausea, vomiting. Abdominal pain is controlled. Review of Systems All systems: negative Constitutional: Denies chills, Denies fever Eyes: denies blurred vision, denies pain Ears, nose, mouth and throat: Denies headache, Denies sore throat Cardiovascular: Denies chest pain, Denies shortness of breath Respiratory: Denies cough Gastrointestinal: Reports abdominal pain, Denies diarrhea, Denies nausea, Denies vomiting Genitourinary: Denies dysuria, Denies hematuria Musculoskeletal: Denies myalgias Integumentary: Denies pruritus, Denies rash Neurological: Denies numbness, Denies weakness Psychiatric: Denies anxiety, Denies depression Endocrine: Denies fatigue, Denies weight change Past Medical History Past Medical History: Coronary Artery Disease (CAD), Diabetes Mellitus, Eye Disorder, GERD/Reflux, Hyperlipidemia, Memory Impairment, Osteoarthritis (OA), Renal Disease, Vascular Disorder Additional Past Medical History / Comment(s): hiatal hernia, NIDDM type II-diet control, neuropathy in bilateral legs, hx chronic kidney disease stage 3, PVD, 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 bowel resection for obstruction, amalia cataracts, Past Anesthesia/Blood Transfusion Reactions: No Reported Reaction Past Psychological History: No Psychological Hx Reported Additional Psychological History / Comment(s): short term memory loss Past Alcohol Use History: Rare Additional Past Alcohol Use History / Comment(s): quit smoking 20 yrs ago, smoked for 20 yrs Past Drug Use History: None Reported - Past Family History Mother Family Medical History: Cancer, CVA/TIA, Pulmonary Embolus Additional Family Medical History / Comment(s): breast cancer Father Family Medical History: CVA/TIA, Myocardial Infarction ([place]) Additional Family Medical History / Comment(s): . Brother(s) Family Medical History: Congestive Heart Failure (CHF) Additional Family Medical History / Comment(s): CABG Medications and Allergies Home Medications Medication Instructions Recorded Confirmed Type Sucralfate [Carafate] 1 gram PO BID 05/10/17 01/05/20 History traZODone HCL 50 mg PO HS 02/11/19 01/05/20 History Docusate [Colace] 100 mg PO BID #20 capsule 01/06/20 Rx HYDROcodone/APAP 5-325MG [[place] 1 tab PO Q6HR PRN #10 tab 01/06/20 Rx 5-325] Allergies Allergy/AdvReac Type Severity Reaction Status Date / Time morphine Allergy Rash/Hives Verified 01/05/20 11:06 sulfamethoxazole Allergy ABD PAIN Verified 01/05/20 11:06 [From Bactrim] trimethoprim [From Bactrim] Allergy Abdominal Verified 01/05/20 11:06 Pain Physical Exam Vitals: Vital Signs Temp Pulse Pulse Resp BP BP Pulse Ox 01/06/20 08:02 98.2 F 110 H 18 143/83 95 01/06/20 00:00 98.2 F 92 18 144/82 94 L 01/05/20 20:35 97.7 F 89 16 136/82 96 01/05/20 15:59 98.1 F 88 16 145/75 98 01/05/20 14:35 72 16 157/66 95 01/05/20 13:25 95 16 142/70 97 01/05/20 12:25 104 H 16 141/82 97 01/05/20 11:55 72 16 149/72 96 01/05/20 11:25 89 16 148/82 97 01/05/20 11:10 71 16 153/69 99 01/05/20 10:55 97.6 F 68 16 154/85 98 01/05/20 10:40 69 18 148/78 100 01/05/20 10:15 88 16 156/70 97 01/05/20 10:03 64 16 160/68 97 01/05/20 09:46 88 16 164/72 97 01/05/20 09:30 68 16 168/76 97 01/05/20 09:16 74 16 172/99 97 01/05/20 09:00 82 16 166/79 99 01/05/20 08:48 82 16 175/87 99 01/05/20 08:41 97.1 F L 86 16 175/95 99 Intake and Output 01/05/20 01/06/20 01/06/20 22:59 06:59 14:59 Intake Total 250 700 Output Total 550 Balance -300 700 Intake: Intake, IV Titration 250 500 Amount D5-0.45% NaCl with KCl 250 500 20Meq/l 1,000 ml @ 125 mls/hr IV .Q8H MARK Rx#: [id number] Oral 200 Output: Urine 550 Other: # Voids 3 3 1 General: well nourished, well developed, NAD. Vitals reviewed Eyes: PERRL, EOMI, conjunctiva normal HENT: normocephalic, mucus membranes moist Neck: supple, no JVD Lungs: normal respiratory effort, no wheezes or rales CV: Regular rate and rhythm, no murmur. Peripheral pulses 2+ Abdomen: soft, nondistended, no organomegaly. Generalized tenderness Lymph: no cervical or axillary LAD Skin: warm and dry. Neuro: A&Ox3, normal mood and affect Results Labs: Abnormal Lab Results - Last 24 Hours (Table) 01/05/20 Range/Units 20:22 POC Glucose (mg/dL) 151 H (75-99) mg/dL Assessment and Plan (1) GERD with esophagitis Status: Acute Code(s): K21.0 - GASTRO-ESOPHAGEAL REFLUX DISEASE WITH ESOPHAGITIS SNOMED Code(s): 932861518 (2) Status post Josephine fundoplication Status: Acute Code(s): Z98.890 - OTHER SPECIFIED POSTPROCEDURAL STATES SNOMED Code(s): 637871317 (3) Hypertension Status: Acute Code(s): I10 - ESSENTIAL (PRIMARY) HYPERTENSION SNOMED Code(s): 02433151 (4) Hyperlipidemia Status: Acute Code(s): E78.5 - HYPERLIPIDEMIA, UNSPECIFIED SNOMED Code(s): 86493634 (5) Insomnia Status: Acute Code(s): G47.00 - INSOMNIA, UNSPECIFIED SNOMED Code(s): 535288668 Plan: 1. S/p Josephine fundoplication. Management per primary. She is medically stable for discharge. Advance diet as tolerated 2. HTN. She declines medication, continue to monitor 3. Insomnia. Continue trazodone DVT prophylaxis lovenox
== END 2020-01-06 13:10 | disposition home or self-care (01) | DRG 328 ==
LOC: 2ORMAIN 06:05 → 6PED 09:21
PROVIDERS: ADMIT Surgery; ATTEND Surgery
PROC: 0DV44ZZ Restriction of Esophagogastric Junction, Percutaneous Endoscopic Approach (ICD-10-PCS; principal; 2020-01-05 07:00)
DX: K21.0 Gastro-esophageal reflux disease with esophagitis (principal); I25.10 Atherosclerotic heart disease of native coronary artery without angina pectoris; E11.51 Type 2 diabetes mellitus with diabetic peripheral angiopathy without gangrene; E78.5 Hyperlipidemia, unspecified; E11.22 Type 2 diabetes mellitus with diabetic chronic kidney disease; M19.90 Unspecified osteoarthritis, unspecified site; N18.3 Chronic kidney disease, stage 3 (moderate); I12.9 Hypertensive chronic kidney disease with stage 1 through stage 4 chronic kidney disease, or unspecified chronic kidney disease; G47.00 Insomnia, unspecified; R41.3 Other amnesia; Z90.49 Acquired absence of other specified parts of digestive tract; Z98.890 Other specified postprocedural states; Z98.42 Cataract extraction status, left eye; Z98.41 Cataract extraction status, right eye; Z87.891 Personal history of nicotine dependence; Z80.3 Family history of malignant neoplasm of breast; Z82.49 Family history of ischemic heart disease and other diseases of the circulatory system; Z82.3 Family history of stroke; Z88.5 Allergy status to narcotic agent; Z88.7 Allergy status to serum and vaccine; Z80.9 Family history of malignant neoplasm, unspecified
CPT/HCPCS: 74210

== ENCOUNTER 2020-01-09 00:06 | Inpatient (IN) | payer BC ==
[2020-01-09] MEDS ORDERED: HYDROmorphone 0.5 MG/0.5 ML SYRINGE IVP STA (01:00)
[2020-01-09] MEDS ORDERED: ONDANSETRON 4 MG/2 ML VIAL IVP STA (01:00)
[2020-01-09 01:07] LABS: Basophils % (A) 0 %; Eosinophils # (A) 0.1 k/uL (0-0.7); Eosinophils % (A) 2 %; HCT 46.2 % (34.0-46.0); HGB 15.4 gm/dL (11.4-16.0); Lymphocytes % (A) 11 %; MCHC 33.3 g/dL (31.0-37.0); Mean Platelet Volume 7.6; Monocytes # (A) 0.3 k/uL (0-1.0); Monocytes % (A) 4 %; Neutrophils # (A) 7.4 k/uL (1.3-7.7); Neutrophils % (A) 82 %; Platelet Count 284 k/uL (150-450); RBC 4.82 m/uL (3.80-5.40); RDW 13.2 % (11.5-15.5)
[2020-01-09 01:14] LABS: Albumin 4.3 g/dL (3.5-5.0); Calcium 9.5 mg/dL (8.4-10.2); Potassium 4.2 mmol/L (3.5-5.1); Total Bilirubin 1.1 mg/dL (0.2-1.3); Total Protein 6.7 g/dL (6.3-8.2)
--- NOTE | 2020-01-09 01:25 | ED ---
Abdominal Pain HPI - General Chief Complaint: Abdominal Pain Stated Complaint: post op abdominal pain Time Seen by Provider: 01/09/20 00:12 Source: patient, family Mode of arrival: wheelchair Limitations: no limitations - History of Present Illness Initial Comments: This patient is a 64-year-old woman who is presenting to be evaluated for right upper quadrant abdominal pain. The patient states that it had come on probably around 6:30 tonight. The patient had prior to that eaten some putting. Patient noted that the pain came on and she attempted to take her pain pill but then became nauseated and was not able to tolerate the pill. She had an episode of dry heaves. Patient had not noted any change in bowel movements or urination. She indicates right upper quadrant pain that is severe. She has not noted worsening or relieving factors. Pain is constant. She states that 2 days prior she had had laparoscopic surgery for hiatal hernia with Dr. Rangel. She had been feeling relatively well following the surgery. MD Complaint: abdominal pain Onset/Timin -: hour(s) Location: RUQ Radiation: none Migration to: no migration Severity: severe Severity scale (1-10): 10 Quality: sharp Consistency: constant Improves With: nothing Worsens With: nothing Associated Symptoms: nausea - Related Data Home Medications Medication Instructions Recorded Confirmed Sucralfate [Carafate] 1 gram PO BID 05/10/17 01/09/20 traZODone HCL 50 mg PO HS 02/11/19 01/09/20 Previous Rx's Medication Instructions Recorded HYDROcodone/APAP 5-325MG [[place] 1 tab PO Q6HR PRN #10 tab 01/06/20 5-325] Allergies Allergy/AdvReac Type Severity Reaction Status Date / Time morphine Allergy Rash/Hives Verified 01/09/20 00:21 sulfamethoxazole Allergy ABD PAIN Verified 01/09/20 00:21 [From Bactrim] trimethoprim [From Bactrim] Allergy Abdominal Verified 01/09/20 00:21 Pain Review of Systems ROS Statement: Those systems with pertinent positive or pertinent negative responses have been documented in the HPI. ROS Other: All systems not noted in ROS Statement are negative. Constitutional: Denies: fever, chills Respiratory: Denies: cough, dyspnea Cardiovascular: Denies: chest pain, palpitations, orthopnea, edema Gastrointestinal: Reports: as per HPI, abdominal pain, nausea. Denies: vomiting, diarrhea, constipation, hematemesis, melena, hematochezia Genitourinary: Denies: dysuria, frequency, hematuria Musculoskeletal: Denies: back pain Skin: Denies: rash Neurological: Denies: headache, weakness, numbness Past Medical History Past Medical History: Coronary Artery Disease (CAD), Diabetes Mellitus, Eye Disorder, GERD/Reflux, Hyperlipidemia, Memory Impairment, Osteoarthritis (OA), Renal Disease, Vascular Disorder Additional Past Medical History / Comment(s): hiatal hernia, NIDDM type II-diet control, neuropathy in bilateral legs, hx chronic kidney disease stage 3, PVD, 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 bowel resection for obstruction, amalia cataracts, Past Anesthesia/Blood Transfusion Reactions: No Reported Reaction Past Psychological History: No Psychological Hx Reported Smoking Status: Former smoker Past Alcohol Use History: Rare Past Drug Use History: None Reported - Past Family History Mother Family Medical History: Cancer, CVA/TIA, Pulmonary Embolus Additional Family Medical History / Comment(s): breast cancer Father Family Medical History: CVA/TIA, Myocardial Infarction ([place]) Additional Family Medical History / Comment(s): . Brother(s) Family Medical History: Congestive Heart Failure (CHF) Additional Family Medical History / Comment(s): CABG General Exam Limitations: no limitations General appearance: alert, in no apparent distress Head exam: Present: atraumatic, normocephalic Eye exam: Present: normal appearance. Absent: scleral icterus, conjunctival injection ENT exam: Present: normal oropharynx Neck exam: Present: normal inspection Respiratory exam: Present: normal lung sounds bilaterally. Absent: respiratory distress, wheezes, rales, rhonchi, stridor Cardiovascular Exam: Present: regular rate, normal rhythm, normal heart sounds. Absent: systolic murmur, diastolic murmur, rubs, gallop GI/Abdominal exam: Present: soft, tenderness, other (Patient's surgical inc isions have normal postoperative appearance. There is some local ecchymosis. There is no erythema or warmth. ). Absent: distended, guarding, rebound, rigid, mass, pulsatile mass, hernia Extremities exam: Present: normal inspection, normal capillary refill. Absent: pedal edema, calf tenderness Back exam: Present: normal inspection. Absent: CVA tenderness (R), CVA tenderness (L) Neurological exam: Present: alert Skin exam: Present: warm, dry, intact, normal color. Absent: rash Course Vital Signs 01/09/20 01/09/20 01/09/20 00:17 01:22 02:27 Temperature 97.4 F L Pulse Rate 124 H 104 H 101 H Respiratory 24 18 18 Rate Blood Pressure 133/98 135/90 147/58 O2 Sat by Pulse 97 99 97 Oximetry 01/09/20 03:18 Temperature 98.3 F Pulse Rate 100 Respiratory 16 Rate Blood Pressure 155/72 O2 Sat by Pulse 95 Oximetry Medical Decision Making - Medical Decision Making Patient is 64-year-old woman presenting with abdominal pain, the workup reveals what appears to be evolving bowel obstruction. Case is discussed with Dr. Guevara, who is covering tonight for Dr. Rangel. Will place an NG tube and admit for Dr. Rangel to see in the morning. - Lab Data Result diagrams: 01/09/20 00:58 01/09/20 00:58 Lab Results 01/09/20 01/09/20 Range/Units 00:58 00:58 WBC 9.0 (3.8-10.6) k/uL RBC 4.82 (3.80-5.40) m/uL Hgb 15.4 (11.4-16.0) gm/dL Hct 46.2 H (34.0-46.0) % MCV 96.0 (80.0-100.0) fL MCH 32.0 (25.0-35.0) pg MCHC 33.3 (31.0-37.0) g/dL RDW 13.2 (11.5-15.5) % Plt Count 284 (150-450) k/uL Neutrophils % 82 % Lymphocytes % 11 % Monocytes % 4 % Eosinophils % 2 % Basophils % 0 % Neutrophils # 7.4 (1.3-7.7) k/uL Lymphocytes # 1.0 (1.0-4.8) k/uL Monocytes # 0.3 (0-1.0) k/uL Eosinophils # 0.1 (0-0.7) k/uL Basophils # 0.0 (0-0.2) k/uL Sodium 135 L (137-145) mmol/L Potassium 4.2 (3.5-5.1) mmol/L Chloride 103 (98-107) mmol/L Carbon Dioxide 19 L (22-30) mmol/L Anion Gap 13 mmol/L BUN 17 (7-17) mg/dL Creatinine 1.36 H (0.52-1.04) mg/dL Est GFR (CKD-EPI)AfAm 48 (>60 ml/min/1.73 sqM) Est GFR (CKD-EPI)NonAf 42 (>60 ml/min/1.73 sqM) Glucose 189 H (74-99) mg/dL Calcium 9.5 (8.4-10.2) mg/dL Total Bilirubin 1.1 (0.2-1.3) mg/dL AST 36 (14-36) U/L ALT 23 (4-34) U/L Alkaline Phosphatase 102 (38-126) U/L Total Protein 6.7 (6.3-8.2) g/dL Albumin 4.3 (3.5-5.0) g/dL Amylase 33 (30-110) U/L Lipase 63 (23-300) U/L Disposition Clinical Impression: Abdominal pain, Partial small bowel obstruction Disposition: ADMITTED IP TO THIS HOSP Condition: Fair
--- NOTE | 2020-01-09 01:40 | CT ---
EXAMINATION TYPE: CT abdomen pelvis wo con DATE OF EXAM: 01/09/2020 COMPARISON: 12/07/2019 HISTORY: RUQ pain, hx of cholecystectomy CT DLP: 822.4 mGycm Automated exposure control for dose reduction was used. Lung bases are clear of consolidation. There is no pleural effusion. Heart size is normal. Liver appears normal. Bile ducts are not dilated. Stomach is intact. There are clips from cholecystec olive. There is no evidence of pancreatic mass. There are calcified splenic granulomata. There is no adrenal mass. Kidneys have normal size. There is no hydronephrosis. There is 2 mm calculu s posterior left kidney. There is 3 mm cortical cyst posterior left kidney. Ureters are not dilated. There is no retroperitoneal adenopathy. Urinary bladder is intact. Uterus is anteverted. There is no evidence of a pelvic mass. There is no free fluid in the pelvis. There is no mesenteric edema. There is no ascites. There are multiple dilated fluid-filled small bowel loops in the mid abdomen. There is previous intes tinal surgery in the anterior mid abdomen. There is apparent right hemicolectomy. Small bowel is dila freedom up to 4.2 cm. Lumbar vertebra have normal alignment. There is no compression fracture. Bony pelvis appears intact. Hip joints are intact. IMPRESSION: Multiple dilated air and fluid-filled small bowel loops with transition point approximately at the il eocolic anastomosis and consistent with mechanical distal small bowel obstruction. This is a change c ompared to old exam. Nonobstructing left renal calculus unchanged.
[2020-01-09] MEDS ORDERED: fentaNYL (PF) 50 MCG/ML 2 ML AMP IV STA (01:44)
[2020-01-09] MEDS ORDERED: NALOXONE 0.4 MG/ML 1 ML VIAL IV PRN (01:57)
[2020-01-09] MEDS ORDERED: ONDANSETRON 4 MG/2 ML VIAL IVP PRN (01:57)
[2020-01-09] MEDS: LACTATED RINGERS 1,000 ML IV SCH ×3 (03:10→19:57)
[2020-01-09] MEDS: FAMOTIDINE 20 MG/2 ML VIAL IV SCH ×2 (03:12→13:57)
[2020-01-09] MEDS: HYDROmorphone 0.5 MG/0.5 ML SYRINGE IVP PRN ×4 (03:12→23:48)
--- NOTE | 2020-01-09 03:17 | XR ---
EXAMINATION TYPE: XR chest 1V DATE OF EXAM: 01/09/2020 COMPARISON: 02/11/2019 HISTORY: Check tube placement TECHNIQUE: Single view FINDINGS: There is NG tube. The tip of the tube is in the left upper quadrant and could be in the pro ximal jejunum. Lungs are clear. There is no heart failure. There are no hilar masses. IMPRESSION: No active cardiopulmonary disease. No change.
--- NOTE | 2020-01-09 12:00 | P.GSHP ---
History of Present Illness H&P Date: 01/09/20 Chief Complaint: Abdominal pain, nausea This a 64-year-old female who was admitted through the emergency room complaints of abdominal pain nausea. Patient had a CAT scan performed which showed a possible small bowel obstruction related previous small bowel anastomosis. Iman prieto states that she feels well. She's had bowel movements and flatus overnight. Her NG tube put out 400 mL overnight. 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 bowel resection for obstruction, amalia cataracts, Past Anesthesia/Blood Transfusion Reactions: No Reported Reaction Past Psychological History: No Psychological Hx Reported Smoking Status: Former smoker Past Alcohol Use History: Rare Past Drug Use History: None Reported - Past Family History Mother Family Medical History: Cancer, CVA/TIA, Pulmonary Embolus Additional Family Medical History / Comment(s): breast cancer Father Family Medical History: CVA/TIA, Myocardial Infarction ([place]) Additional Family Medical History / Comment(s): . Brother(s) Family Medical History: Congestive Heart Failure (CHF) Additional Family Medical History / Comment(s): CABG Medications and Allergies Home Medications Medication Instructions Recorded Confirmed Type Sucralfate [Carafate] 1 gram PO BID 05/10/17 01/09/20 History traZODone HCL 50 mg PO HS 02/11/19 01/09/20 History HYDROcodone/APAP 5-325MG [[place] 1 tab PO Q6HR PRN #10 tab 01/06/20 01/09/20 Rx 5-325] Docusate [Colace] 100 mg PO DAILY 01/09/20 01/09/20 History Allergies Allergy/AdvReac Type Severity Reaction Status Date / Time morphine Allergy Rash/Hives Verified 01/09/20 08:02 sulfamethoxazole Allergy ABD PAIN Verified 01/09/20 08:02 [From Bactrim] trimethoprim [From Bactrim] Allergy Abdominal Verified 01/09/20 08:02 Pain Surgical - Exam Vital Signs Temp Pulse Resp BP Pulse Ox 97.4 F L 124 H 24 133/98 97 01/09/20 00:17 01/09/20 00:17 01/09/20 00:17 01/09/20 00:17 01/09/20 00:17 - General well developed, well nourished, no distress - Eyes PERRL - ENT normal pinna - Neck no masses - Respiratory normal expansion - Cardiovascular Rhythm: regular - Abdomen Abdomen: soft, non tender Results - Labs 01/09/20 00:58 01/09/20 00:58 Abnormal Lab Results - Last 24 Hours (Table) 01/09/20 01/09/20 Range/Units 00:58 00:58 Hct 46.2 H (34.0-46.0) % Sodium 135 L (137-145) mmol/L Carbon Dioxide 19 L (22-30) mmol/L Creatinine 1.36 H (0.52-1.04) mg/dL Glucose 189 H (74-99) mg/dL Diabetes panel 01/09/20 Range/Units 00:58 Sodium 135 L (137-145) mmol/L Potassium 4.2 (3.5-5.1) mmol/L Chloride 103 (98-107) mmol/L Carbon Dioxide 19 L (22-30) mmol/L BUN 17 (7-17) mg/dL Creatinine 1.36 H (0.52-1.04) mg/dL Glucose 189 H (74-99) mg/dL Calcium 9.5 (8.4-10.2) mg/dL AST 36 (14-36) U/L ALT 23 (4-34) U/L Alkaline Phosphatase 102 (38-126) U/L Total Protein 6.7 (6.3-8.2) g/dL Albumin 4.3 (3.5-5.0) g/dL Calcium panel 01/09/20 Range/Units 00:58 Calcium 9.5 (8.4-10.2) mg/dL Albumin 4.3 (3.5-5.0) g/dL Pituitary panel 01/09/20 Range/Units 00:58 Sodium 135 L (137-145) mmol/L Potassium 4.2 (3.5-5.1) mmol/L Chloride 103 (98-107) mmol/L Carbon Dioxide 19 L (22-30) mmol/L BUN 17 (7-17) mg/dL Creatinine 1.36 H (0.52-1.04) mg/dL Glucose 189 H (74-99) mg/dL Calcium 9.5 (8.4-10.2) mg/dL Adrenal panel 01/09/20 Range/Units 00:58 Sodium 135 L (137-145) mmol/L Potassium 4.2 (3.5-5.1) mmol/L Chloride 103 (98-107) mmol/L Carbon Dioxide 19 L (22-30) mmol/L BUN 17 (7-17) mg/dL Creatinine 1.36 H (0.52-1.04) mg/dL Glucose 189 H (74-99) mg/dL Calcium 9.5 (8.4-10.2) mg/dL Total Bilirubin 1.1 (0.2-1.3) mg/dL AST 36 (14-36) U/L ALT 23 (4-34) U/L Alkaline Phosphatase 102 (38-126) U/L Total Protein 6.7 (6.3-8.2) g/dL Albumin 4.3 (3.5-5.0) g/dL Assessment and Plan Assessment: Ileus versus partial small bowel structure. Patient is a [employer] currently she has no abdominal pain or nausea. The patient will have her nasogastric tube removed. She'll start on clear liquid diet.
[2020-01-09 23:54] LABS: Appearance,Urine Clear (Clear); Bacteria,Urine Rare /hpf; Bilirubin,Urine Negative (Negative); Blood,Urine Negative (Negative); Color,Urine Light Yellow; Glucose,Urine (UA) Negative (Negative); Ketones,Urine 1+ (Negative); Leukocyte Esterase,Urine Large (Negative); Mucus,Urine Occasional /hpf; Nitrite,Urine Negative (Negative); Protein,Urine Negative (Negative); RBC,Urine 6 /hpf (0-5); Specific Gravity,Urine 1.007 (1.001-1.035); Squamous Epithelial Cell,Urine 1 /hpf (0-4); Urobilinogen,Urine <2.0 mg/dL (<2.0); WBC,Urine 44 /hpf (0-5)
[2020-01-10] MEDS: LACTATED RINGERS 1,000 ML IV SCH ×3 (02:16→17:27)
[2020-01-10] MEDS: FAMOTIDINE 20 MG/2 ML VIAL IV SCH (08:58)
--- NOTE | 2020-01-10 11:01 | P.PN ---
Progress Note - Text Progress Note Date: 01/10/20 The patient feels better. She is having diarrhea. On exam her vital signs are stable. Abdomen soft. Incision sites clean and intact. Resolving ileus. Patient will advance to full liquid diet. His be discharged home tomorrow.
[2020-01-10 14:16] VITALS: BMI 41.1
--- NOTE | 2020-01-10 16:36 | P.CON ---
Consult Note - . Consult date: 01/10/20 Assessment/Plan:: Covering for Dr. Lewis over the weekend Reason for consult - management of chronic medical problems Ms. Calderón is a 64-year-old female with a past medical history of coronary artery disease, diabetes mellitus, GERD, hypertension, osteoarthritis, prostate disorder admitted to the hospital with a chief complaint of abdominal pain nausea. CAT scan in the ED showing possible small bowel obstruction related to her previous small bowel anastomosis. The right hand and wrist and and the patient had a bowel movement. She is having multiple bowel movements today. She denies having any acute complaints. Patient denies having any chest pain, difficulty in breathing or cough. No orthopnea or PND. States her abdominal pain has resolved. Denies having any nausea or vomiting. Denies having lower extremity swelling. No symptoms of UTI, she denies dysuria or hematuria. Patient's vitals have been stable. On reviewing her labs hemoglobin stable at 15.4. Sodium 135, potassium 4.2, BUN 17, creatinine 1.36. AST are within no rmal limits. C. diff negative, coronary bypass PCR negative. Urine is positive for large leukocyte esterase and 44 WBCs. REVIEW OF SYSTEMS: PSYCH: No anxiety or depression NEURO:No c/o weakness of the extremties, No facial droop, No speech abnormalities. VASCULAR: Peripheral nervous system within the normal limits no edema HEMATOLOGIC: No history of easy bleeding and bruising . No recent infections . RESPIRATORY: No cough, No SOB, No chest discomfort. IMMUNE: No infections INTEGUMENT: no rashes OPHTHALMOLOGIC: No blurry vision and no eye discharge : No dysuria or hematuria CARDIAC: No chest pain , shortness of breath , paroxysmal nocturnal dyspnea MUSCULOSKELETAL : No Aches or pains in the joints or muscles. 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 bowel resection for obstruction, amalia cataracts, Past Anesthesia/Blood Transfusion Reactions: No Reported Reaction Past Psychological History: No Psychological Hx Reported Smoking Status: Former smoker Past Alcohol Use History: Rare Past Drug Use History: None Reported - Past Family History Mother Family Medical History: Cancer, CVA/TIA, Pulmonary Embolus Additional Family Medical History / Comment(s): breast cancer Father Family Medical History: CVA/TIA, Myocardial Infarction ([place]) Additional Family Medical History / Comment(s): . Brother(s) Family Medical History: Congestive Heart Failure (CHF) Additional Family Medical History / Comment(s): CABG Medications and Allergies Home Medications Medication Instructions Recorded Confirmed Type Sucralfate [Carafate] 1 gram PO BID 05/10/17 01/09/20 History traZODone HCL 50 mg PO HS 02/11/19 01/09/20 History HYDROcodone/APAP 5-325MG [[place] 1 tab PO Q6HR PRN #10 tab 01/06/20 01/09/20 Rx 5-325] Docusate [Colace] 100 mg PO DAILY 01/09/20 01/09/20 History Allergies Allergy/AdvReac Type Severity Reaction Status Date / Time morphine Allergy Rash/Hives Verified 01/09/20 08:02 sulfamethoxazole Allergy ABD PAIN Verified 01/09/20 08:02 [From Bactrim] trimethoprim [From Bactrim] Allergy Abdominal Verified 01/09/20 08:02 Pain Physical Exam Vitals: Vital Signs Temp Pulse Pulse Resp BP Pulse Ox 01/10/20 09:17 97.7 F 81 16 140/81 96 01/10/20 00:45 98.1 F 87 17 134/82 95 01/09/20 20:00 98.0 F 89 18 154/83 98 01/09/20 16:27 98.1 F 78 18 150/83 97 Intake and Output 01/10/20 01/10/20 01/10/20 06:59 14:59 22:59 Intake Total 1250 Balance 1250 Intake: Intake, IV Titration 1250 Amount Lactated Ringers 1,000 ml 1250 @ 125 mls/hr IV .Q8H [facility] Rx#:[id number] Other: # Voids 1 # Bowel Movements 1 1 Weight 89.131 kg GEN. APPEARANCE: alert, in no apparent distress HEENT - PERRLA, normal Atraumatic, No Pallor. No Icterus. RESPIRATORY EXAM: Bilateral breath sounds are positive. No wheeze or crackles. CARDIOVASCULAR EXAM: S1 and S2 are nausea and sounds. GI/ABDOMINAL EXAM: Hyperactive bowel sounds. Nontender. Nondistended. No guarding or rigidity. EXTREMITIES EXAM: No pedal edema NEUROLOGICAL EXAM: alert, oriented X3, no focal neurological deficits on gross exam PSYCHIATRIC EXAM: normal affect, normal mood SKIN EXAM: warm, dry, intact, normal color. Absent: rash Results CBC & Chem 7: 01/09/20 00:58 01/09/20 00:58 Labs: Abnormal Lab Results - Last 24 Hours (Table) 01/09/20 Range/Units 23:45 Urine Ketones 1+ H (Negative) Ur Leukocyte Esterase Large H (Negative) Urine RBC 6 H (0-5) /hpf Urine WBC 44 H (0-5) /hpf Urine Bacteria Rare H (None) /hpf Urine Mucus Occasional H (None) /hpf Microbiology - Last 24 Hours (Table) 01/09/20 23:45 Urine Culture - Preliminary Urine,Clean Catch ASSESSMENT Ileus versus partial small bowel obstruction History of coronary artery disease Asymptomatic bacteriuria Type 2 diabetes mellitus GERD Hyperlipidemia Vascular disorder Chronic kidney disease stage III Memory impairment History of small bowel anastomosis Former smoker PLAN: Patient is admitted for partial small bowel obstruction. Patient has bowel movements now. She has been restarted on all her home medications. Blood pressure and blood sugars have been running within normal limits. Patient's urinalysis is positive for esterase but she is not having any symptoms suggestive of UTI, no need for antibiotics. Continue with the home medication regimen. Further recommendations to follow depending on the progress of the josefa mccloud.
[2020-01-11] MEDS: HYDROmorphone 0.5 MG/0.5 ML SYRINGE IVP PRN (02:14)
[2020-01-11] MEDS: LACTATED RINGERS 1,000 ML IV SCH ×2 (02:17→08:22)
[2020-01-11] MEDS: FAMOTIDINE 20 MG/2 ML VIAL IV SCH (08:04)
[2020-01-11 08:11] VITALS: BP 122/70; PULSE 75; RESP 16; TEMP 98.6
--- NOTE | 2020-01-11 11:29 | P.DS ---
Providers Date of admission: 01/09/20 01:57 Expected date of discharge: 01/11/20 Attending physician: Reji Rangel Consults: 01/09/20 12:00 Consult Physician Routine Consulting Provider: Dmitry Lewis Consult Reason/Comments: Medical management Do you want consulting provider notified?: Yes Primary care physician: Karen Snowden [facility] Course: Is a 64-year-old female to hospital possible small bowel charge. Patient appears to have an ileus that resolved. Please see hospital chart for details. Patient Condition at Discharge: Good Plan - Discharge Summary Discharge Rx Participant: Yes New Discharge Prescriptions: No Action Sucralfate [Carafate] 1 gram PO BID traZODone HCL 50 mg PO HS HYDROcodone/APAP 5-325MG [[place] 5-325] 1 tab PO Q6HR PRN #10 tab PRN Reason: Pain Docusate [Colace] 100 mg PO DAILY Discharge Medication List Sucralfate [Carafate] 1 gram PO BID 05/10/17 [History] traZODone HCL 50 mg PO HS 02/11/19 [History] HYDROcodone/APAP 5-325MG [[place] 5-325] 1 tab PO Q6HR PRN #10 tab 01/06/20 [Rx] Docusate [Colace] 100 mg PO DAILY 01/09/20 [History] Follow up Appointment(s)/Referral(s): Karen Snowden DO [Primary Care Provider] - 1-2 days Activity/Diet/Wound Care/Special Instructions: Full liquid diet for 2 weeks Discharge Disposition: HOME SELF-CARE
--- NOTE | 2020-01-11 15:17 | P.PN ---
Subjective Progress Note Date: 01/11/20 Principal diagnosis: Partial small bowel obstruction Ms. Calderón is a 64-year-old female with a past medical history of coronary artery disease, diabetes mellitus, GERD, hypertension, osteoarthritis, prostate disorder admitted to the hospital with a chief complaint of abdominal pain nausea. CAT scan in the ED showing possible small bowel obstruction related to her previous small bowel anastomosis. Patient was managed conservatively, she had a bowel movement. On 01/11/2020- patient was sitting up in the chair by bedside appears to be no acute distress. No events reported by nursing staff overnight. Patient states that she has 2 or 3 bowel movements, watery in consistency, but she states that this is normal for her. Patient denies having any dysuria or hematuria. She denies having any chest pain or palpitations. No difficulty in breathing or cough. Objective - Vital Signs Vital signs: Vital Signs Temp 98.6 F 01/11/20 07:00 Pulse 75 01/11/20 07:00 Resp 16 01/11/20 07:00 BP 122/70 01/11/20 07:00 Pulse Ox 97 01/11/20 07:00 Intake & Output 01/10/20 01/11/20 01/11/20 18:59 06:59 18:59 Intake Total 1000 990 Balance 1000 990 Weight 89.131 kg Intake: Intake, IV Titration 750 Amount Lactated Ringers 1,000 ml 750 @ 125 mls/hr IV .Q8H [facility] Rx#:[id number] Oral 1000 240 Other: # Voids 2 1 # Bowel Movements 3 2 - Exam GEN. APPEARANCE: alert, in no apparent distress HEENT - PERRLA, normal Atraumatic, No Pallor. No Icterus. RESPIRATORY EXAM: Bilateral breath sounds are positive. No wheeze or crackles. CARDIOVASCULAR EXAM: S1 and S2 are nausea and sounds. GI/ABDOMINAL EXAM: Hyperactive bowel sounds. Nontender. Nondistended. No guarding or rigidity. EXTREMITIES EXAM: No pedal edema - Labs CBC & Chem 7: 01/09/20 00:58 01/09/20 00:58 Labs: Microbiology - Last 24 Hours (Table) 01/09/20 23:45 Urine Culture - Preliminary Urine,Clean Catch Assessment and Plan Assessment: ASSESSMENT Ileus versus partial small bowel obstruction History of coronary artery disease Asymptomatic bacteriuria Type 2 diabetes mellitus GERD Hyperlipidemia Vascular disorder Chronic kidney disease stage III Memory impairment History of small bowel anastomosis Former smoker PLAN: Patient admitted for partial small bowel obstruction, now she has regular bowel movements. Blood pressure and pressure was running within normal limits. Asymptomatic bacteriuria, no need for antibiotics. Patient to be continued on the rest of her home medication, if she is being discharged.
== END 2020-01-11 12:00 | disposition home or self-care (01) | DRG 390 ==
LOC: EC 00:06 → 6PED 01:57
PROVIDERS: ADMIT Surgery; ATTEND Surgery
DX: K56.7 Ileus, unspecified (principal); E11.22 Type 2 diabetes mellitus with diabetic chronic kidney disease; E11.51 Type 2 diabetes mellitus with diabetic peripheral angiopathy without gangrene; E78.5 Hyperlipidemia, unspecified; G89.18 Other acute postprocedural pain; I12.9 Hypertensive chronic kidney disease with stage 1 through stage 4 chronic kidney disease, or unspecified chronic kidney disease; I25.10 Atherosclerotic heart disease of native coronary artery without angina pectoris; K21.9 Gastro-esophageal reflux disease without esophagitis; N18.3 Chronic kidney disease, stage 3 (moderate); Z80.3 Family history of malignant neoplasm of breast; Z82.49 Family history of ischemic heart disease and other diseases of the circulatory system; Z87.891 Personal history of nicotine dependence; Z98.42 Cataract extraction status, left eye; Z98.41 Cataract extraction status, right eye; K44.9 Diaphragmatic hernia without obstruction or gangrene; H54.61 Unqualified visual loss, right eye, normal vision left eye; R26.81 Unsteadiness on feet; K58.9 Irritable bowel syndrome, unspecified; Z90.49 Acquired absence of other specified parts of digestive tract; Z88.5 Allergy status to narcotic agent; Z88.2 Allergy status to sulfonamides; Z79.899 Other long term (current) drug therapy; Z11.59 Encounter for screening for other viral diseases
CPT/HCPCS: 36415; 43753; 71045; 74176; 80053; 81001; 82150; 83690; 85025; 87086; 87324; 96374; 96375; 96376; 99285

== ENCOUNTER 2020-02-12 14:12 | Inpatient (IN) | payer BC ==
[2020-02-12] MEDS ORDERED: HYDROmorphone 1 MG/ML 1 ML SYRINGE IVP STA (14:25)
[2020-02-12] MEDS ORDERED: SODIUM CHLORIDE 0.9% 1,000 ML IV STA ×2 (14:25→15:58)
[2020-02-12] MEDS ORDERED: ONDANSETRON 4 MG/2 ML VIAL IVP STA (14:25)
[2020-02-12] MEDS ORDERED: PANTOPRAZOLE 40 MG/10 ML VIAL IVP STA (14:25)
--- NOTE | 2020-02-12 14:27 | ED ---
Abdominal Pain HPI - General Chief Complaint: Abdominal Pain Stated Complaint: Abdominal Pain Time Seen by Provider: 02/12/20 14:25 Source: patient, RN notes reviewed, old records reviewed Mode of arrival: ambulatory Limitations: no limitations - History of Present Illness Initial Comments: This is a 65 female DF for evaluation of multiple abdominal surgeries history of multiple abdominal surgeries. Patient is history of umbilical surgery umbilical hernia hiatal hernia and bowel resection. Difficulty with eating and drinking she does have some abdominal distention and loose stools. No fevers MD Complaint: abdominal pain -: hour(s) Location: diffuse Radiation: epigastric, suprapubic Migration to: no migration Severity: moderate Severity scale (1-10): 4 Quality: cramping, aching Consistency: constant Improves With: nothing Worsens With: nothing Associated Symptoms: nausea, fever - Related Data Home Medications Medication Instructions Recorded Confirmed Sucralfate [Carafate] 1 gram PO BID 05/10/17 01/09/20 traZODone HCL 50 mg PO HS 02/11/19 01/09/20 Docusate [Colace] 100 mg PO DAILY 01/09/20 01/09/20 Previous Rx's Medication Instructions Recorded HYDROcodone/APAP 5-325MG [[place] 1 tab PO Q6HR PRN #10 tab 01/06/20 5-325] Allergies Allergy/AdvReac Type Severity Reaction Status Date / Time morphine Allergy Rash/Hives Verified 02/12/20 14:14 sulfamethoxazole Allergy ABD PAIN Verified 02/12/20 14:14 [From Bactrim] trimethoprim [From Bactrim] Allergy Abdominal Verified 02/12/20 14:14 Pain Review of Systems ROS Statement: Those systems with pertinent positive or pertinent negative responses have been documented in the HPI. ROS Other: All systems not noted in ROS Statement are negative. 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 bowel resection for obstruction, amalia cataracts, Past Anesthesia/Blood Transfusion Reactions: No Reported Reaction Past Psychological History: No Psychological Hx Reported Smoking Status: Former smoker Past Alcohol Use History: Rare Past Drug Use History: None Reported - Past Family History Mother Family Medical History: Cancer, CVA/TIA, Pulmonary Embolus Additional Family Medical History / Comment(s): breast cancer Father Family Medical History: CVA/TIA, Myocardial Infarction ([place]) Additional Family Medical History / Comment(s): . Brother(s) Family Medical History: Congestive Heart Failure (CHF) Additional Family Medical History / Comment(s): CABG General Exam Limitations: no limitations General appearance: alert, in no apparent distress, anxious Head exam: Present: atraumatic, normocephalic, normal inspection Eye exam: Present: normal appearance, PERRL, EOMI. Absent: scleral icterus, conjunctival injection, periorbital swelling ENT exam: Present: normal exam, mucous membranes moist Neck exam: Present: normal inspection. Absent: tenderness, meningismus, lymphadenopathy Respiratory exam: Present: normal lung sounds bilaterally. Absent: respiratory distress, wheezes, rales, rhonchi, stridor Cardiovascular Exam: Present: regular rate, normal rhythm, normal heart sounds. Absent: systolic murmur, diastolic murmur, rubs, gallop, clicks GI/Abdominal exam: Present: soft, distended, tenderness, normal bowel sounds. Absent: guarding, rebound, rigid Extremities exam: Present: normal inspection, full ROM, normal capillary refill. Absent: tenderness, pedal edema, joint swelling, calf tenderness Back exam: Present: normal inspection Neurological exam: Present: alert, oriented X3, CN II-XII intact Psychiatric exam: Present: normal affect, normal mood Skin exam: Present: warm, dry, intact, normal color. Absent: rash Course Vital Signs 02/12/20 02/12/20 14:14 14:59 Temperature 97.7 F Pulse Rate 83 79 Respiratory 18 16 Rate Blood Pressure 119/76 154/98 O2 Sat by Pulse 98 97 Oximetry - Reevaluation(s) Reevaluation #1: 02/12/20 14:26 Medical records reviewed Reevaluation #2: 02/12/20 16:00 Patient has adequate pain control currently - Consultations Consultation #1: Spoke with the Juan Carlos agrees to admit his own patient Medical Decision Making - Medical Decision Making 65 female to the ER for evaluation of abdominal pain distention small bowel obstruction will admit for surgical evaluation and consultation - Lab Data Result diagrams: 02/12/20 14:35 02/12/20 14:35 Lab Results 02/12/20 02/12/20 02/12/20 Range/Units 14:35 14:35 14:35 WBC 5.6 (3.8-10.6) k/uL RBC 4.81 (3.80-5.40) m/uL Hgb 14.8 (11.4-16.0) gm/dL Hct 46.4 H (34.0-46.0) % MCV 96.5 (80.0-100.0) fL MCH 30.7 (25.0-35.0) pg MCHC 31.9 (31.0-37.0) g/dL RDW 13.3 (11.5-15.5) % Plt Count 281 (150-450) k/uL Neutrophils % 67 % Lymphocytes % 24 % Monocytes % 5 % Eosinophils % 1 % Basophils % 1 % Neutrophils # 3.7 (1.3-7.7) k/uL Lymphocytes # 1.3 (1.0-4.8) k/uL Monocytes # 0.3 (0-1.0) k/uL Eosinophils # 0.1 (0-0.7) k/uL Basophils # 0.1 (0-0.2) k/uL Sodium 138 (137-145) mmol/L Potassium 4.3 (3.5-5.1) mmol/L Chloride 106 (98-107) mmol/L Carbon Dioxide 21 L (22-30) mmol/L Anion Gap 11 mmol/L BUN 18 H (7-17) mg/dL Creatinine 1.09 H (0.52-1.04) mg/dL Est GFR (CKD-EPI)AfAm 62 (>60 ml/min/1.73 sqM) Est GFR (CKD-EPI)NonAf 54 (>60 ml/min/1.73 sqM) Glucose 112 H (74-99) mg/dL Plasma Lactic Acid [place] 1.2 (0.7-2.0) mmol/L Calcium 9.6 (8.4-10.2) mg/dL Total Bilirubin 0.6 (0.2-1.3) mg/dL AST 28 (14-36) U/L ALT 14 (4-34) U/L Alkaline Phosphatase 93 (38-126) U/L Troponin I (0.000-0.034) ng/mL Total Protein 7.1 (6.3-8.2) g/dL Albumin 4.6 (3.5-5.0) g/dL Amylase 62 (30-110) U/L Lipase 213 (23-300) U/L Urine Color Urine Appearance (Clear) Urine pH (5.0-8.0) Ur Specific [place] (1.001-1.035) Urine Protein (Negative) Urine Glucose (UA) (Negative) Urine Ketones (Negative) Urine Blood (Negative) Urine Nitrite (Negative) Urine Bilirubin (Negative) Urine Urobilinogen (<2.0) mg/dL Ur Leukocyte Esterase (Negative) Urine RBC (0-5) /hpf Urine WBC (0-5) /hpf Ur Squamous Epith Cells (0-4) /hpf Urine Bacteria (None) /hpf Hyaline Casts (0-2) /lpf Urine Mucus (None) /hpf 02/12/20 02/12/20 Range/Units 14:35 15:03 WBC (3.8-10.6) k/uL RBC (3.80-5.40) m/uL Hgb (11.4-16.0) gm/dL Hct (34.0-46.0) % MCV (80.0-100.0) fL MCH (25.0-35.0) pg MCHC (31.0-37.0) g/dL RDW (11.5-15.5) % Plt Count (150-450) k/uL Neutrophils % % Lymphocytes % % Monocytes % % Eosinophils % % Basophils % % Neutrophils # (1.3-7.7) k/uL Lymphocytes # (1.0-4.8) k/uL Monocytes # (0-1.0) k/uL Eosinophils # (0-0.7) k/uL Basophils # (0-0.2) k/uL Sodium (137-145) mmol/L Potassium (3.5-5.1) mmol/L Chloride (98-107) mmol/L Carbon Dioxide (22-30) mmol/L Anion Gap mmol/L BUN (7-17) mg/dL Creatinine (0.52-1.04) mg/dL Est GFR (CKD-EPI)AfAm (>60 ml/min/1.73 sqM) Est GFR (CKD-EPI)NonAf (>60 ml/min/1.73 sqM) Glucose (74-99) mg/dL Plasma Lactic Acid [place] (0.7-2.0) mmol/L Calcium (8.4-10.2) mg/dL Total Bilirubin (0.2-1.3) mg/dL AST (14-36) U/L ALT (4-34) U/L Alkaline Phosphatase (38-126) U/L Troponin I <0.012 (0.000-0.034) ng/mL Total Protein (6.3-8.2) g/dL Albumin (3.5-5.0) g/dL Amylase (30-110) U/L Lipase (23-300) U/L Urine Color Yellow Urine Appearance Cloudy H (Clear) Urine pH 5.5 (5.0-8.0) Ur Specific [place] 1.028 (1.001-1.035) Urine Protein 1+ H (Negative) Urine Glucose (UA) Negative (Negative) Urine Ketones 1+ H (Negative) Urine Blood Small H (Negative) Urine Nitrite Negative (Negative) Urine Bilirubin 1+ H (Negative) Urine Urobilinogen 3.0 (<2.0) mg/dL Ur Leukocyte Esterase Large H (Negative) Urine RBC 14 H (0-5) /hpf Urine WBC >182 H (0-5) /hpf Ur Squamous Epith Cells 16 H (0-4) /hpf Urine Bacteria Occasional H (None) /hpf Hyaline Casts 87 H (0-2) /lpf Urine Mucus Moderate H (None) /hpf - Radiology Data Radiology results: report reviewed (CT head and pelvis positive for obstruction), image reviewed Disposition Clinical Impression: Abdominal pain, Nausea, Colitis, Partial small bowel obstruction, Status post Josephine fundoplication, Partial intestinal obstruction Disposition: ADMITTED IP TO THIS HOSP Condition: Fair Is patient prescribed a controlled substance at d/c from ED?: No Referrals: Karen Snowden DO [Primary Care Provider] - 1-2 days
[2020-02-12 14:52] LABS: Basophils # (A) 0.1 k/uL (0-0.2); Basophils % (A) 1 %; Eosinophils # (A) 0.1 k/uL (0-0.7); Eosinophils % (A) 1 %; HCT 46.4 % (34.0-46.0); HGB 14.8 gm/dL (11.4-16.0); Lymphocytes # (A) 1.3 k/uL (1.0-4.8); Lymphocytes % (A) 24 %; MCH 30.7 pg (25.0-35.0); MCHC 31.9 g/dL (31.0-37.0); MCV 96.5 fL (80.0-100.0); Mean Platelet Volume 7.8; Monocytes # (A) 0.3 k/uL (0-1.0); Monocytes % (A) 5 %; Neutrophils # (A) 3.7 k/uL (1.3-7.7); Neutrophils % (A) 67 %; Platelet Count 281 k/uL (150-450); RBC 4.81 m/uL (3.80-5.40); RDW 13.3 % (11.5-15.5); WBC 5.6 k/uL (3.8-10.6)
[2020-02-12 14:58] LABS: Albumin 4.6 g/dL (3.5-5.0); Calcium 9.6 mg/dL (8.4-10.2); Potassium 4.3 mmol/L (3.5-5.1); Total Bilirubin 0.6 mg/dL (0.2-1.3); Total Protein 7.1 g/dL (6.3-8.2)
[2020-02-12 15:24] LABS: Appearance,Urine Cloudy (Clear); Bacteria,Urine Occasional /hpf; Bilirubin,Urine 1+ (Negative); Blood,Urine Small (Negative); Color,Urine Yellow; Glucose,Urine (UA) Negative (Negative); Hyaline Casts,Urine 87 /lpf (0-2); Ketones,Urine 1+ (Negative); Leukocyte Esterase,Urine Large (Negative); Mucus,Urine Moderate /hpf; Nitrite,Urine Negative (Negative); PH, Urine 5.5 (5.0-8.0); Protein,Urine 1+ (Negative); RBC,Urine 14 /hpf (0-5); Specific Gravity,Urine 1.028 (1.001-1.035); Squamous Epithelial Cell,Urine 16 /hpf (0-4); WBC,Urine >182 /hpf (0-5)
--- NOTE | 2020-02-12 15:48 | CT ---
EXAMINATION TYPE: CT abdomen pelvis w con DATE OF EXAM: 02/12/2020 COMPARISON: 01/09/2020 HISTORY: 65-year-old female Upper abdominal pain, nausea, diarrhea. History of obstructions. TECHNIQUE: Contiguous axial scanning of the abdomen and pelvis following administration of 100 ml Iso tara 300 IV contrast. Delayed images through the kidneys and coronal/sagittal reconstructions perform ed. CT DLP: 1160.9 mGycm Automated exposure control for dose reduction was used. FINDINGS: Heart upper limits of normal in size without pericardial effusion. Lung bases clear without pleural e ffusion. Post surgical changes at the GE junction, likely Josephine fundoplication. Small supraumbilical ventral midline hernia measuring 2.8 cm wide containing fat. Just below, there i s ventral abdominal wall mesh repair. This hernia appears new or larger as compared to 01/09/2020. No focal liver lesion. Stable prominent bile duct likely secondary to postcholecystectomy status. Por hanna venous system is patent. Renal glands, right kidney, and atrophic pancreas show no gross abnormality. Left renal cysts measuring up to 2.7 cm. Small 8 mm cortical hypodensity anterior upper pole left kid juanjo too small fractures CT characterization, likely additional cysts. Few calcified granulomas in the spleen. Scattered patulous small bowel loops suggests the right midabdomen measuring up to 2.6 cm. In the lef t mid abdomen measure up to 3.1 cm. No discrete transition point in the small bowel loops. Redemonstrated right hemicolectomy with ileocolonic anastomosis at the level of the midtransverse col on. The colon at the level of the anastomosis is distended and fluid-filled 4.4 cm with persistent calibe r change, referred to coronal image 25. There also may be some mild fold thickening at the ilial side of the anastomosis, refer to coronal image 24. No mesenteric or retroperitoneal lymphadenopathy. Bladder is collapsed. Uterus is anteverted. Left ovary is visualized. Right ovary not clearly seen. N o abnormal fluid collection in the pelvis or pelvic lymphadenopathy. Bones: Mild degenerative change of the chest. Facet arthropathy and degenerative disc disease mid to lower lumbar spine. IMPRESSION: 1. PRIOR RIGHT HEMICOLECTOMY WITH ILEOCOLONIC ANASTOMOSIS IN THE MID TRANSVERSE COLON. THE COLON AT T HE ANASTOMOSIS IS FLUID DISTENDED UP TO 4.4 CM WIDE AND SHOWS A TRANSITION POINT THAT PERSISTS ON THE DELAYED KIDNEY IMAGES. UNABLE TO EXCLUDE A FOCAL STRICTURE/RELATIVE OBSTRUCTION AT THE DISTAL TRANSV ERSE COLON. SHORT INTERVAL FOLLOW-UP CAN BE PERFORMED TO SEE IF THIS AREA OPENS UP. 2. THERE IS ALSO SOME MILD FOLD THICKENING AT THE ILEAL SIDE OF THE ANASTOMOSIS THAT COULD REPRESENT A NONSPECIFIC ILEITIS. ATTENTION TO THIS REGION ON FOLLOW-UP ESPECIALLY IF THERE IS AN ONCOLOGIC HIST ORY IN THIS PATIENT. 3. SEGMENTAL SCATTERED PATULOUS FLUID-FILLED SMALL BOWEL LOOPS, POSSIBLE ILEUS. 4. A 2.8 CM WIDE FAT-CONTAINING EPIGASTRIC ABDOMINAL WALL HERNIA HAS INCREASED IN SIZE FROM 1.9 CM ON 01/09/2020. 5. STATUS POST JOSEPHINE FUNDOPLICATION. PRIOR PERIUMBILICAL ABDOMINAL WALL MESH REPAIR.
[2020-02-12] MEDS ORDERED: diphenhydrAMINE 50 MG/ML 1 ML VIAL IVP PRN (15:58)
[2020-02-12] MEDS ORDERED: METOCLOPRAMIDE 5 MG/ML 2 ML VIAL IVP STA (15:58)
[2020-02-12] MEDS ORDERED: METOCLOPRAMIDE 5 MG/ML 2 ML VIAL IVP PRN (15:58)
[2020-02-12] MEDS ORDERED: AMPICILLIN-SULBACTAM 3 GM in SODIUM CHLORIDE 0.9% 100 ML IVPB STA (16:06)
[2020-02-12] MEDS ORDERED: diphenhydrAMINE 50 MG/ML 1 ML VIAL IVP STA (16:07)
[2020-02-12] MEDS: SODIUM CHLORIDE 0.9% 1,000 ML IV ONE ×2 (18:12→18:13)
[2020-02-12 20:33] LABS: Glucose,Whole Blood 81 mg/dL (75-99)
[2020-02-12] MEDS ORDERED: ONDANSETRON 4 MG/2 ML VIAL IVP PRN (21:02)
[2020-02-12] MEDS: SUCRALFATE 1 GM TAB PO SCH (21:22)
[2020-02-12] MEDS: traZODone HCL 50 MG TAB PO SCH (21:22)
[2020-02-12] MEDS: DOCUSATE 100 MG CAP PO SCH (21:22)
[2020-02-13] MEDS: AMPICILLIN-SULBACTAM 3 GM in SODIUM CHLORIDE 0.9% 100 ML IVPB SCH ×4 (00:24→23:51)
[2020-02-13] MEDS: HYDROcodone/APAP 5-325MG 1 EACH TAB PO PRN ×2 (04:44→16:28)
[2020-02-13] MEDS: SODIUM CHLORIDE 0.9% 1,000 ML IV SCH ×4 (04:52→21:33)
[2020-02-13 06:55] LABS: Glucose,Whole Blood 85 mg/dL (75-99)
[2020-02-13] MEDS: PANTOPRAZOLE 40 MG/10 ML VIAL IVP SCH (08:16)
[2020-02-13] MEDS: DOCUSATE 100 MG CAP PO SCH (08:17)
[2020-02-13] MEDS: ENOXAPARIN 40 MG/0.4 ML SYRINGE SQ SCH (08:17)
[2020-02-13] MEDS: SUCRALFATE 1 GM TAB PO SCH ×2 (08:17→17:35)
[2020-02-13] MEDS: INSULIN ASPART (NovoLOG) 100 UNIT/ML VIAL SQ SCH ×4 (08:17→21:32)
[2020-02-13 10:54] LABS: Glucose,Whole Blood 88 mg/dL (75-99)
--- NOTE | 2020-02-13 13:13 | P.GSHP ---
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 She also has a history of diabetes mellitus type 2, GERD, hyperlipidemia and chronic kidney disease. Patient presents to the emergency room complaints of epigastric pain that radiates to the right. She's also been having nausea and vomiting. She is planning her abdomen is distended and had decreased appetite. She's been having some loose stools. Denies any fever, chills or sweats. PAST MEDICAL HISTORY: See list. PAST SURGICAL HISTORY: See list. MEDICATIONS: See list. ALLERGIES: See list. SOCIAL HISTORY: No illicit drug use. REVIEW OF SYSTEMS: CONSTITUTIONAL: Denies fever or chills. HEENT: Denies blurred vision, vision changes, or eye pain. Denies hemoptysis CARDIOVASCULAR: Denies chest pain or pressure. RESPIRATORY: No shortness of breath. GASTROINTESTINAL: See HPI for pertinent findings HEMATOLOGIC: Denies bleeding disorders. GENITOURINARY: Denies any blood in urine or increased urinary frequency. SKIN: Denies pruitis. Denies rash. PHYSICAL EXAM: VITAL SIGNS: Reviewed GENERAL: Well-developed in no acute distress. HEENT: No sclera icterus. Extraocular movements grossly intact. Moist buccal mucosa. Head is atraumatic, normocephalic. No nasal drainage. ABDOMEN: Soft. Mildly distended diffuse tenderness NEUROLOGIC: Alert and oriented. Cranial nerves II through XII grossly intact. LABORATORY DATA: WBC 5.6 HGB 14.8 lipase 213 AST 20 ALT 14 urinalysis positive for UTI IMAGING: Computed tomography scan of the abdomen and pelvis with prior right hemicolectomy with ileocolonic anastomosis in the mid transverse colon. The colon at the entrance most this is fluid distended at 4.4cm wide shows a transition point that persists on the delayed kidney image. There is also some mild focal thickening at the ileal side of the anastomosis that could represent a nonspecific ileitis. Segmental scattered patulous fluid-filled small bowel loops possible ileus. 2.8 cm wide fat-containing epigastric abdominal hernia has increased in size from 1.9 cm. Status post Josephine fundoplication. Prior umbilical abdominal wall mesh repair ASSESSMENT: 1. Ileus secondary to UTI 2. Thickening at the ileal side of the anastomosis. We will continue to observe 3. Epigastric abdominal wall hernia 4. UTI PLAN: -Continue IV antibiotics -Continue IV fluids -Continue clear liquid diet -We will continue to monitor closely -Continue [place] as needed for pain -continue zofran as needed for nausea and vomiting -GI prophylaxis Protonix and DVT prophylaxis Lovenox Physician Fiscal Technician note has been reviewed by physician. Signing provider agrees with the documented findings, assessment, and plan of care. 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 bowel resection for obstruction, amalia cataracts, Past Anesthesia/Blood Transfusion Reactions: No Reported Reaction Past Psychological History: No Psychological Hx Reported Additional Psychological History / Comment(s): short term memory loss Smoking Status: Former smoker Past Alcohol Use History: Rare Additional Past Alcohol Use History / Comment(s): quit smoking 20 yrs ago, smoked for 20 yrs Past Drug Use History: None Reported - Past Family History Mother Family Medical History: Cancer, CVA/TIA, Pulmonary Embolus Additional Family Medical History / Comment(s): breast cancer Father Family Medical History: CVA/TIA, Myocardial Infarction ([place]) Additional Family Medical History / Comment(s): . Brother(s) Family Medical History: Congestive Heart Failure (CHF) Additional Family Medical History / Comment(s): CABG Medications and Allergies Home Medications Medication Instructions Recorded Confirmed Type Sucralfate [Carafate] 1 gram PO BID 05/10/17 02/12/20 History traZODone HCL 50 mg PO HS 02/11/19 02/12/20 History Docusate [Colace] 100 mg PO HS 01/09/20 02/12/20 History Allergies Allergy/AdvReac Type Severity Reaction Status Date / Time morphine Allergy Rash/Hives Verified 02/12/20 16:09 sulfamethoxazole Allergy ABD PAIN Verified 02/12/20 16:09 [From Bactrim] Surgical - Exam Vital Signs Temp Pulse Resp BP Pulse Ox 97.7 F 83 18 119/76 98 02/12/20 14:14 02/12/20 14:14 02/12/20 14:14 02/12/20 14:14 02/12/20 14:14 Results - Labs 02/12/20 14:35 02/12/20 14:35 Abnormal Lab Results - Last 24 Hours (Table) 02/12/20 02/12/20 02/12/20 Range/Units 14:35 14:35 15:03 Hct 46.4 H (34.0-46.0) % Carbon Dioxide 21 L (22-30) mmol/L BUN 18 H (7-17) mg/dL Creatinine 1.09 H (0.52-1.04) mg/dL Glucose 112 H (74-99) mg/dL Urine Appearance Cloudy H (Clear) Urine Protein 1+ H (Negative) Urine Ketones 1+ H (Negative) Urine Blood Small H (Negative) Urine Bilirubin 1+ H (Negative) Ur Leukocyte Esterase Large H (Negative) Urine RBC 14 H (0-5) /hpf Urine WBC >182 H (0-5) /hpf Ur Squamous Epith Cells 16 H (0-4) /hpf Urine Bacteria Occasional H (None) /hpf Hyaline Casts 87 H (0-2) /lpf Urine Mucus Moderate H (None) /hpf Microbiology - Last 24 Hours (Table) 02/12/20 15:03 Urine Culture - Preliminary Urine,Voided Diabetes panel 02/12/20 Range/Units 14:35 Sodium 138 (137-145) mmol/L Potassium 4.3 (3.5-5.1) mmol/L Chloride 106 (98-107) mmol/L Carbon Dioxide 21 L (22-30) mmol/L BUN 18 H (7-17) mg/dL Creatinine 1.09 H (0.52-1.04) mg/dL Glucose 112 H (74-99) mg/dL Calcium 9.6 (8.4-10.2) mg/dL AST 28 (14-36) U/L ALT 14 (4-34) U/L Alkaline Phosphatase 93 (38-126) U/L Total Protein 7.1 (6.3-8.2) g/dL Albumin 4.6 (3.5-5.0) g/dL Calcium panel 02/12/20 Range/Units 14:35 Calcium 9.6 (8.4-10.2) mg/dL Albumin 4.6 (3.5-5.0) g/dL Pituitary panel 02/12/20 Range/Units 14:35 Sodium 138 (137-145) mmol/L Potassium 4.3 (3.5-5.1) mmol/L Chloride 106 (98-107) mmol/L Carbon Dioxide 21 L (22-30) mmol/L BUN 18 H (7-17) mg/dL Creatinine 1.09 H (0.52-1.04) mg/dL Glucose 112 H (74-99) mg/dL Calcium 9.6 (8.4-10.2) mg/dL Adrenal panel 02/12/20 Range/Units 14:35 Sodium 138 (137-145) mmol/L Potassium 4.3 (3.5-5.1) mmol/L Chloride 106 (98-107) mmol/L Carbon Dioxide 21 L (22-30) mmol/L BUN 18 H (7-17) mg/dL Creatinine 1.09 H (0.52-1.04) mg/dL Glucose 112 H (74-99) mg/dL Calcium 9.6 (8.4-10.2) mg/dL Total Bilirubin 0.6 (0.2-1.3) mg/dL AST 28 (14-36) U/L ALT 14 (4-34) U/L Alkaline Phosphatase 93 (38-126) U/L Total Protein 7.1 (6.3-8.2) g/dL Albumin 4.6 (3.5-5.0) g/dL
[2020-02-13 14:47] VITALS: BMI 38.2
[2020-02-13 17:07] LABS: Glucose,Whole Blood 84 mg/dL (75-99)
[2020-02-13] MEDS: traZODone HCL 50 MG TAB PO SCH (20:59)
[2020-02-13 21:27] LABS: Glucose,Whole Blood 161 mg/dL (75-99)
--- NOTE | 2020-02-13 22:37 | P.CONS ---
History of Present Illness - Reason for Consult Consult date: 02/13/20 medical eval - History of Present Illness Adriana Calderón is a 65 yo F with PMH of colonic obstruction requiring R hemicolectomy, hiatal hernia s/p josephine fundoplication, T2DM who presented to the ED complaining of epigastric pain after eating the past few days. She feels it has become worse lately, she also notes loose stool around this time. Denies any fever, chills, cough, chest pain or nausea. On presentation vitals stable, labs significant for Cr 1.08 and urine bacteria present. CT abd/pelvis shows dilation and edema at epigastric ileo-colonic junction. Review of Systems All systems: negative Constitutional: Reports malaise, Denies chills, Denies fever Eyes: denies blurred vision, denies pain Ears, nose, mouth and throat: Denies headache, Denies sore throat Cardiovascular: Denies chest pain, Denies shortness of breath Respiratory: Denies cough Gastrointestinal: Reports abdominal pain, Reports bloating, Reports diarrhea, Reports dyspepsia, Reports excessive gas, Reports heartburn, Denies nausea, Denies vomiting Genitourinary: Denies dysuria, Denies hematuria Musculoskeletal: Denies myalgias Integumentary: Denies pruritus, Denies rash Neurological: Denies numbness, Denies weakness Psychiatric: Denies anxiety, Denies depression Endocrine: Denies fatigue, Denies weight change Past Medical History Past Medical History: Coronary Artery Disease (CAD), Diabetes Mellitus, Eye Disorder, GERD/Reflux, Hyperlipidemia, Memory Impairment, Osteoarthritis (OA), Renal Disease, Vascular Disorder Additional Past Medical History / Comment(s): hiatal hernia, NIDDM type II-diet control, neuropathy in bilateral legs, hx chronic kidney disease stage 3, PVD, 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 bowel resection for obstruction, amalia cataracts, Past Anesthesia/Blood Transfusion Reactions: No Reported Reaction Past Psychological History: No Psychological Hx Reported Additional Psychological History / Comment(s): short term memory loss Smoking Status: Former smoker Past Alcohol Use History: Rare Additional Past Alcohol Use History / Comment(s): quit smoking 20 yrs ago, smoked for 20 yrs Past Drug Use History: None Reported - Past Family History Mother Family Medical History: Cancer, CVA/TIA, Pulmonary Embolus Additional Family Medical History / Comment(s): breast cancer Father Family Medical History: CVA/TIA, Myocardial Infarction ([place]) Additional Family Medical History / Comment(s): . Brother(s) Family Medical History: Congestive Heart Failure (CHF) Additional Family Medical History / Comment(s): CABG Medications and Allergies Home Medications Medication Instructions Recorded Confirmed Type Sucralfate [Carafate] 1 gram PO BID 05/10/17 02/12/20 History traZODone HCL 50 mg PO HS 02/11/19 02/12/20 History Docusate [Colace] 100 mg PO HS 01/09/20 02/12/20 History Allergies Allergy/AdvReac Type Severity Reaction Status Date / Time morphine Allergy Rash/Hives Verified 02/12/20 16:09 sulfamethoxazole Allergy ABD PAIN Verified 02/12/20 16:09 [From Bactrim] Physical Exam Vitals: Vital Signs Temp Pulse Resp BP Pulse Ox 02/13/20 21:19 98.4 F 72 17 121/72 96 02/13/20 11:35 98 F 68 18 127/77 98 02/13/20 05:24 97.5 F L 73 18 138/67 95 Intake and Output 02/13/20 02/13/20 02/13/20 06:59 14:59 22:59 Intake Total 1260 Balance 1260 Intake: Intake, IV Titration 1200 Amount Ampicillin-Sulbactam 3 gm 100 In Sodium Chloride 0.9% 100 ml @ 200 mls/hr IVPB Q8HR MARK Rx#:[id number] Sodium Chloride 0.9% 1, 1100 000 ml @ 100 mls/hr IV . Q10H MARK Rx#:[id number] Oral 60 Other: Voiding Method Toilet Toilet Toilet Diaper Diaper # Voids 1 5 # Bowel Movements 2 Weight 83.007 kg General: well nourished, well developed, NAD. Vitals reviewed Eyes: PERRL, EOMI, conjunctiva normal HENT: normocephalic, mucus membranes moist Neck: supple, no JVD Lungs: normal respiratory effort, no wheezes or rales CV: Regular rate and rhythm, no murmur. Peripheral pulses 2+ Abdomen: soft, nondistended, no organomegaly. Tenderness epigastric Lymph: no cervical or axillary LAD Skin: warm and dry. Neuro: A&Ox3, normal mood and affect Results CBC & Chem 7: 02/12/20 14:35 02/12/20 14:35 Labs: Abnormal Lab Results - Last 24 Hours (Table) 02/13/20 Range/Units 21:22 POC Glucose (mg/dL) 161 H (75-99) mg/dL Microbiology - Last 24 Hours (Table) 02/12/20 15:03 Urine Culture - Preliminary Urine,Voided Assessment and Plan (1) Colitis Current Visit: Yes Status: Acute Code(s): K52.9 - NONINFECTIVE GASTRO ENTERITIS AND COLITIS, UNSPECIFIED SNOMED Code(s): 64257189 (2) Partial intestinal obstruction Current Visit: Yes Status: Acute Code(s): K56.600 - PARTIAL INTESTINAL OBSTRUCTION, UNSPECIFIED TO CAUSE SNOMED Code(s): 91034390925990901 (3) Partial small bowel obstruction Current Visit: Yes Status: Acute Code(s): K56.600 - PARTIAL INTESTINAL OBSTRUCTION, UNSPECIFIED TO CAUSE SNOMED Code(s): 025725002 (4) Status post Josephine fundoplication Current Visit: Yes Status: Acute Code(s): Z98.890 - OTHER SPECIFIED POSTPROCEDURAL STATES SNOMED Code(s): 508142060 (5) Type 2 diabetes mellitus Current Visit: No Status: Acute Code(s): E11.9 - TYPE 2 DIABETES MELLITUS WITHOUT COMPLICATIONS SNOMED Code(s): 36622594 Plan: 1. Partial SBO and colitis at ileocolonic transition point. Surgery following. Continue IV unasyn, reglan 2. GERD. continue protonix, carafate 3. Insomnia. Trazodone
[2020-02-14] MEDS: HYDROcodone/APAP 5-325MG 1 EACH TAB PO PRN ×3 (02:26→17:10)
[2020-02-14 07:36] LABS: Glucose,Whole Blood 89 mg/dL (75-99)
[2020-02-14] MEDS: SUCRALFATE 1 GM TAB PO SCH ×2 (07:47→17:09)
[2020-02-14] MEDS: ENOXAPARIN 40 MG/0.4 ML SYRINGE SQ SCH (07:47)
[2020-02-14] MEDS: INSULIN ASPART (NovoLOG) 100 UNIT/ML VIAL SQ SCH ×4 (07:47→20:26)
[2020-02-14] MEDS: DOCUSATE 100 MG CAP PO SCH (07:48)
[2020-02-14] MEDS: PANTOPRAZOLE 40 MG/10 ML VIAL IVP SCH (07:48)
[2020-02-14] MEDS: AMPICILLIN-SULBACTAM 3 GM in SODIUM CHLORIDE 0.9% 100 ML IVPB SCH ×2 (07:49→17:08)
[2020-02-14 11:33] LABS: Glucose,Whole Blood 96 mg/dL (75-99)
[2020-02-14] MEDS: SODIUM CHLORIDE 0.9% 1,000 ML IV SCH ×2 (12:33→20:27)
--- NOTE | 2020-02-14 12:47 | P.PN ---
Subjective Progress Note Date: 02/14/20 Principal diagnosis: Abdominal pain Patient still having pain in the upper abdomen. Points to the retrosternal location. Says it's worse when eating. Pain does radiate to the right upper quadrant at times. She is tolerating clears. She would like to try something more solid. She is having multiple loose stools. No bloating. Objective - Vital Signs Vital signs: Vital Signs Temp 97.7 F 02/14/20 05:40 Pulse 70 02/14/20 05:40 Resp 18 02/14/20 05:40 BP 118/70 02/14/20 05:40 Pulse Ox 95 02/14/20 05:40 Intake & Output 02/13/20 02/14/20 02/14/20 18:59 06:59 18:59 Weight 83.007 kg Other: Voiding Method Toilet Toilet Toilet # Voids 5 1 # Bowel Movements 2 - Exam Abdomen: Soft, nondistended, mild upper abdominal tenderness, hernia reducible - Labs CBC & Chem 7: 02/12/20 14:35 02/12/20 14:35 Labs: Abnormal Lab Results - Last 24 Hours (Table) 02/13/20 Range/Units 21:22 POC Glucose (mg/dL) 161 H (75-99) mg/dL Microbiology - Last 24 Hours (Table) 02/12/20 15:03 Urine Culture - Preliminary Urine,Voided Gram Neg Bacilli Assessment and Plan (1) Abdominal pain Narrative/Plan: Patient complaining of abdominal pain. States that in the upper abdomen. Could be partially on the basis of the epigastric hernia identified on recent CAT scan. This is reducible however. Also seems to have some component of dysphagia. If symptoms persist would consider upper GI. For now will increase diet to full liquids. Continue antibiotics for UTI and suspected associated ileus. Current Visit: Yes Status: Acute Code(s): R10.9 - UNSPECIFIED ABDOMINAL PAIN SNOMED Code(s): 45453536
[2020-02-14 17:23] LABS: Glucose,Whole Blood 115 mg/dL (75-99)
[2020-02-14 20:02] LABS: Glucose,Whole Blood 131 mg/dL (75-99)
[2020-02-14] MEDS: traZODone HCL 50 MG TAB PO SCH (20:26)
[2020-02-15] MEDS: AMPICILLIN-SULBACTAM 3 GM in SODIUM CHLORIDE 0.9% 100 ML IVPB SCH ×4 (00:08→23:04)
[2020-02-15] MEDS: HYDROcodone/APAP 5-325MG 1 EACH TAB PO PRN ×2 (02:38→21:18)
[2020-02-15 07:30] LABS: Glucose,Whole Blood 95 mg/dL (75-99)
[2020-02-15] MEDS: SODIUM CHLORIDE 0.9% 1,000 ML IV SCH ×2 (07:41→16:12)
[2020-02-15] MEDS: INSULIN ASPART (NovoLOG) 100 UNIT/ML VIAL SQ SCH ×4 (07:42→21:18)
[2020-02-15] MEDS: DOCUSATE 100 MG CAP PO SCH (07:50)
[2020-02-15] MEDS: SUCRALFATE 1 GM TAB PO SCH ×2 (07:50→16:23)
[2020-02-15] MEDS: PANTOPRAZOLE 40 MG/10 ML VIAL IVP SCH (07:50)
[2020-02-15] MEDS: ENOXAPARIN 40 MG/0.4 ML SYRINGE SQ SCH (07:50)
[2020-02-15] MEDS: ACETAMINOPHEN TAB 325 MG TAB PO PRN ×2 (09:09→17:32)
--- NOTE | 2020-02-15 10:57 | P.PN ---
Subjective Progress Note Date: 02/15/20 Principal diagnosis: Abdominal pain Patient still having mild upper abdominal pain. She points to the site of the epigastric abdominal wall hernia. Tolerating full liquids. She is having some loose stools. Objective - Vital Signs Vital signs: Vital Signs Temp 97.7 F 02/15/20 04:26 Pulse 69 02/15/20 04:26 Resp 16 02/15/20 04:26 BP 148/74 02/15/20 04:26 Pulse Ox 96 02/15/20 04:26 Intake & Output 02/14/20 02/15/20 02/15/20 18:59 06:59 18:59 Intake Total 800 1000 Balance 800 1000 Intake: Intake, IV Titration 800 400 Amount Sodium Chloride 0.9% 1, 800 400 000 ml @ 100 mls/hr IV . Q10H MARK Rx#:[id number] Oral 600 Other: Voiding Method Toilet Toilet # Voids 1 1 1 # Bowel Movements 1 1 - Exam Abdomen soft, nondistended, mild tenderness in epigastric hernia site - Labs CBC & Chem 7: 02/12/20 14:35 02/12/20 14:35 Labs: Abnormal Lab Results - Last 24 Hours (Table) 02/14/20 02/14/20 Range/Units 17:21 20:00 POC Glucose (mg/dL) 115 H 131 H (75-99) mg/dL Microbiology - Last 24 Hours (Table) 02/12/20 15:03 Urine Culture - Final Urine,Voided Klebsiella pneumoniae Assessment and Plan (1) Abdominal pain Narrative/Plan: Patient seems to be doing better. Tolerating diet. Will increase diet further. Pain possibly related to abdominal wall hernia. Current Visit: Yes Status: Acute Code(s): R10.9 - UNSPECIFIED ABDOMINAL PAIN SNOMED Code(s): 55632774
[2020-02-15 11:45] LABS: Glucose,Whole Blood 172 mg/dL (75-99)
--- NOTE | 2020-02-15 12:40 | P.PN ---
Subjective Progress Note Date: 02/14/20 Principal diagnosis: Small bowel obstruction 65 yo F with PMH of colonic obstruction requiring R hemicolectomy, hiatal hernia s/p rosibel fundoplication, T2DM who presented to the ED complaining of epigastric pain after eating the past few days. She feels it has become worse lately, she also notes loose stool around this time. Denies any fever, chills, cough, chest pain or nausea. On presentation vitals stable, labs significant for Cr 1.08 and urine bacteria present. CT abd/pelvis shows dilation and edema at epigastric ileo-colonic junction. 02/14/2020 Patient is seen and evaluated sitting up in a bedside chair; continues to complain of abdominal pain; set her diet was advanced today was able to order; patient has been tolerating clear liquids well; patient continues to have multiple loose stools Vital signs remained stable with a temperature of 97.7 and blood pressure of 118/70 Surgery is on board and recommending to advance diet from clear liquid to full liquids and monitor closely for upper abdominal pain which could be related to abdominal hernia seen on CT of abdomen; patient will have GI evaluation if abdominal pain continues to persist Objective - Vital Signs Vital signs: Vital Signs Temp 97.7 F 02/14/20 05:40 Pulse 70 02/14/20 05:40 Resp 18 02/14/20 05:40 BP 118/70 02/14/20 05:40 Pulse Ox 95 02/14/20 05:40 Intake & Output 02/13/20 02/14/20 02/14/20 18:59 06:59 18:59 Weight 83.007 kg Other: Voiding Method Toilet Toilet Toilet # Voids 5 1 # Bowel Movements 2 - Exam Eyes: PERRL, EOMI, conjunctiva normal HENT: normocephalic, mucus membranes moist Neck: supple, no JVD Lungs: normal respiratory effort, no wheezes or rales CV: Regular rate and rhythm, no murmur. Peripheral pulses 2+ Abdomen: soft, nondistended, no organomegaly. Tenderness epigastric Lymph: no cervical or axillary LAD Skin: warm and dry. - Labs CBC & Chem 7: 02/12/20 14:35 02/12/20 14:35 Labs: Abnormal Lab Results - Last 24 Hours (Table) 02/13/20 Range/Units 21:22 POC Glucose (mg/dL) 161 H (75-99) mg/dL Microbiology - Last 24 Hours (Table) 02/12/20 15:03 Urine Culture - Preliminary Urine,Voided Gram Neg Bacilli Assessment and Plan Assessment: 1. Abdominal pain/colitis - Patient remains on IV Unasyn; labs are reviewed and stable 2. Partial small bowel obstruction; patient is status post Rosibel fundoplication; [place] board and recommending to advance diet to full liquids and continue to watch patient closely 3. Diabetes mellitus type 2; Accu-Cheks every before meals and at bedtime with insulin sliding scale 4. Gastro-esophageal reflux disease; patient is currently on Protonix and oral Carafate; continues to complain of epigastric abdominal pain; we will request GI evaluation if abdominal pain persists 5. Insomnia; continue with current dose of trazodone DVT prophylaxis; SCDs CODE STATUS; full code
[2020-02-15 16:44] LABS: Glucose,Whole Blood 114 mg/dL (75-99)
--- NOTE | 2020-02-15 17:35 | P.PN ---
Subjective Progress Note Date: 02/15/20 Principal diagnosis: Small bowel obstruction 65 yo F with PMH of colonic obstruction requiring R hemicolectomy, hiatal hernia s/p rosibel fundoplication, T2DM who presented to the ED complaining of epigastric pain after eating the past few days. She feels it has become worse lately, she also notes loose stool around this time. Denies any fever, chills, cough, chest pain or nausea. On presentation vitals stable, labs significant for Cr 1.08 and urine bacteria present. CT abd/pelvis shows dilation and edema at epigastric ileo-colonic junction. 02/14/2020 Patient is seen and evaluated sitting up in a bedside chair; continues to complain of abdominal pain; set her diet was advanced today was able to order; patient has been tolerating clear liquids well; patient continues to have multiple loose stools Vital signs remained stable with a temperature of 97.7 and blood pressure of 118/70 Surgery is on board and recommending to advance diet from clear liquid to full liquids and monitor closely for upper abdominal pain which could be related to abdominal hernia seen on CT of abdomen; patient will have GI evaluation if abdominal pain continues to persist 02/15/2020 Patient is seen and evaluated in room at bedside; report some improvement in symptoms; diet has been advanced; patient continues to have concerns about upper abdominal pain; surgery is on board- possibly secondary to epigastric abdominal hernia; patient is tolerating full liquid diet; patient with be advanced as tolerated per surgery recommendations; plan is to consult GI if abdominal pain persists Objective - Vital Signs Vital signs: Vital Signs Temp 97.7 F 02/15/20 04:26 Pulse 69 02/15/20 04:26 Resp 16 02/15/20 04:26 BP 148/74 02/15/20 04:26 Pulse Ox 96 02/15/20 04:26 Intake & Output 02/14/20 02/15/20 02/15/20 18:59 06:59 18:59 Intake Total 800 1000 360 Balance 800 1000 360 Intake: Intake, IV Titration 800 400 Amount Sodium Chloride 0.9% 1, 800 400 000 ml @ 100 mls/hr IV . Q10H MARK Rx#:[id number] Oral 600 360 Other: Voiding Method Toilet Toilet # Voids 1 1 1 # Bowel Movements 1 1 - Exam Eyes: PERRL, EOMI, conjunctiva normal HENT: normocephalic, mucus membranes moist Neck: supple, no JVD Lungs: normal respiratory effort, no wheezes or rales CV: Regular rate and rhythm, no murmur. Peripheral pulses 2+ Abdomen: soft, nondistended, no organomegaly. Tenderness epigastric Lymph: no cervical or axillary LAD Skin: warm and dry. - Labs CBC & Chem 7: 02/12/20 14:35 02/12/20 14:35 Labs: Abnormal Lab Results - Last 24 Hours (Table) 02/14/20 02/14/20 02/15/20 Range/Units 17:21 20:00 11:33 POC Glucose (mg/dL) 115 H 131 H 172 H (75-99) mg/dL Microbiology - Last 24 Hours (Table) 02/12/20 15:03 Urine Culture - Final Urine,Voided Klebsiella pneumoniae Assessment and Plan Assessment: 1. Abdominal pain/colitis - Patient remains on IV Unasyn; labs are reviewed and stable 2. Partial small bowel obstruction; patient is status post Rosibel fundoplication; [place] board and recommending to advance diet to full liquids and continue to watch patient closely 3. Diabetes mellitus type 2; Accu-Cheks every before meals and at bedtime with insulin sliding scale 4. Gastro-esophageal reflux disease; patient is currently on Protonix and oral Carafate; continues to complain of epigastric abdominal pain; we will request GI evaluation if abdominal pain persists 5. Insomnia; continue with current dose of trazodone DVT prophylaxis; SCDs CODE STATUS; full code
[2020-02-15 20:15] LABS: Glucose,Whole Blood 154 mg/dL (75-99)
[2020-02-15] MEDS: traZODone HCL 50 MG TAB PO SCH (21:18)
[2020-02-16] MEDS: SODIUM CHLORIDE 0.9% 1,000 ML IV SCH ×3 (03:00→20:19)
[2020-02-16] MEDS: ACETAMINOPHEN TAB 325 MG TAB PO PRN (05:03)
[2020-02-16 07:06] LABS: Glucose,Whole Blood 104 mg/dL (75-99)
[2020-02-16] MEDS: AMPICILLIN-SULBACTAM 3 GM in SODIUM CHLORIDE 0.9% 100 ML IVPB SCH ×2 (08:23→16:16)
[2020-02-16] MEDS: ENOXAPARIN 40 MG/0.4 ML SYRINGE SQ SCH (08:23)
[2020-02-16] MEDS: SUCRALFATE 1 GM TAB PO SCH ×2 (08:23→17:35)
[2020-02-16] MEDS: PANTOPRAZOLE 40 MG TABLET PO SCH (08:23)
[2020-02-16] MEDS: DOCUSATE 100 MG CAP PO SCH (08:24)
[2020-02-16] MEDS: INSULIN ASPART (NovoLOG) 100 UNIT/ML VIAL SQ SCH ×4 (09:13→20:20)
--- NOTE | 2020-02-16 10:21 | P.PN ---
Subjective Progress Note Date: 02/16/20 CHIEF COMPLAINT: Epigastric abdominal pain HISTORY OF PRESENT ILLNESS: Patient is still complaining of some epigastric abdominal pain especially with eating. She is being followed for ileus and epigastric abdominal hernia. She is tolerating a regular diet. Denies any nausea vomiting. Had 2 soft bowel movements today. She is afebrile. PHYSICAL EXAM: VITAL SIGNS: Reviewed. GENERAL: Well-developed in no acute distress. HEENT: No sclera icterus. Extraocular movements grossly intact. Moist buccal mucosa. Head is atraumatic, normocephalic. ABDOMEN: Soft. Nondistended. Epigastric tenderness with palpation NEUROLOGIC: Alert and oriented. Cranial nerves II through XII grossly intact. ASSESSMENT: 1. Epigastric abdominal pain possible secondary to her abdominal wall hernia 2. Ileus secondary to UTI 3. Thickening at the ileal side of the anastomosis. We will continue to observe PLAN: -down grade diet to soft, dysphagia chopped -Continue Protonix and Carafate -continue to monitor Physician Stunner note has been reviewed by physician. Signing provider agrees with the documented findings, assessment, and plan of care. Objective - Vital Signs Vital signs: Vital Signs Temp 98.5 F 02/16/20 05:00 Pulse 89 02/16/20 05:00 Resp 16 02/16/20 05:00 BP 156/88 02/16/20 05:00 Pulse Ox 96 02/16/20 05:00 Intake & Output 02/15/20 02/16/20 02/16/20 18:59 06:59 18:59 Intake Total 1930 900 Balance 1930 900 Intake: Intake, IV Titration 900 Amount Ampicillin-Sulbactam 3 gm 100 In Sodium Chloride 0.9% 100 ml @ 200 mls/hr IVPB Q8HR MARK Rx#:[id number] Sodium Chloride 0.9% 1, 800 000 ml @ 100 mls/hr IV . Q10H MARK Rx#:[id number] Oral 1930 Other: Voiding Method Toilet Toilet # Voids 2 2 # Bowel Movements 3 - Labs CBC & Chem 7: 02/12/20 14:35 02/12/20 14:35 Labs: Abnormal Lab Results - Last 24 Hours (Table) 02/15/20 02/15/20 02/15/20 Range/Units 11:33 16:42 20:10 POC Glucose (mg/dL) 172 H 114 H 154 H (75-99) mg/dL 02/16/20 Range/Units 07:04 POC Glucose (mg/dL) 104 H (75-99) mg/dL
[2020-02-16 11:05] LABS: Glucose,Whole Blood 116 mg/dL (75-99)
[2020-02-16 11:33] VITALS: RESP 18
--- NOTE | 2020-02-16 14:13 | P.PN ---
Subjective Progress Note Date: 02/16/20 Adriana Calderón is a 65 yo F with PMH of colonic obstruction requiring R hemicolectomy, hiatal hernia s/p josephine fundoplication, T2DM who presented to the ED complaining of epigastric pain after eating the past few days. She feels it has become worse lately, she also notes loose stool around this time. Denies any fever, chills, cough, chest pain or nausea. On presentation vitals stable, labs significant for Cr 1.08 and urine bacteria present. CT abd/pelvis shows dilation and edema at epigastric ileo-colonic junction. 02/16/2020 ambulating in room, tolerating activity well. Complains of headache, she has a history of migraines for which she takes normally Excedrin Migraine with good results. Continues on IV fluid hydration. On a regular diet, reports nausea, no emesis, burping, positive bloating, fluctuating diffuse abdominal pain, positive bowel movement. Afebrile. Denies chest pain, palpitations or shortness of breath. Objective - Vital Signs Vital signs: Vital Signs Temp 98 F 02/16/20 11:32 Pulse 71 02/16/20 11:32 Resp 18 02/16/20 11:32 BP 159/88 02/16/20 11:32 Pulse Ox 95 02/16/20 11:32 Intake & Output 02/15/20 02/16/20 02/16/20 18:59 06:59 18:59 Intake Total 193 900 Balance 1930 900 Intake: Intake, IV Titration 900 Amount Ampicillin-Sulbactam 3 gm 100 In Sodium Chloride 0.9% 100 ml @ 200 mls/hr IVPB Q8HR MARK Rx#:[id number] Sodium Chloride 0.9% 1, 800 000 ml @ 100 mls/hr IV . Q10H MARK Rx#:[id number] Oral 1930 Other: Voiding Method Toilet Toilet # Voids 2 2 # Bowel Movements 3 - Exam General: Sitting up in a chair,NAD Eyes: PERRL, EOMI, conjunctiva normal HENT: normocephalic, mucus membranes moist Neck: supple, no JVD Lungs: normal respiratory effort, no wheezes or rales CV: Regular rate and rhythm, no murmur. Peripheral pulses 2+ Abdomen: soft, nondistended, no organomegaly. Diffuse Tenderness Skin: warm and dry. Neuro: A&Ox3, normal mood and affect. No focal deficits. - Labs CBC & Chem 7: 02/12/20 14:35 02/12/20 14:35 Labs: Abnormal Lab Results - Last 24 Hours (Table) 02/15/20 02/15/20 02/16/20 Range/Units 16:42 20:10 07:04 POC Glucose (mg/dL) 114 H 154 H 104 H (75-99) mg/dL 02/16/20 Range/Units 11:03 POC Glucose (mg/dL) 116 H (75-99) mg/dL Assessment and Plan Assessment: (1) Colitis Current Visit: Yes Status: Acute Code(s): K52.9 - NONINFECTIVE GASTROENTERITIS AND COLITIS, UNSPECIFIED SNOMED Code(s): 89858352 (2) Partial intestinal obstruction Current Visit: Yes Status: Acute Code(s): K56.600 - PARTIAL INTESTINAL OBSTRUCTION, UNSPECIFIED TO CAUSE SNOMED Code(s): 67500115755181979 (3) Partial small bowel obstruction Current Visit: Yes Status: Acute Code(s): K56.600 - PARTIAL INTESTINAL OBSTRUCTION, UNSPECIFIED TO CAUSE SNOMED Code(s): 482442200 (4) Status post Josephine fundoplication Current Visit: Yes Status: Acute Code(s): Z98.890 - OTHER SPECIFIED POSTPROCEDURAL STATES SNOMED Code(s): 204949100 (5) Type 2 diabetes mellitus Current Visit: No Status: Acute Code(s): E11.9 - TYPE 2 DIABETES MELLITUS WITHOUT COMPLICATIONS SNOMED Code(s): 97639863 (6) gastroesophageal reflux disease (7) insomnia Plan: Continue on current medication regime ,monitoring and symptomatic treatment. Maintain IV fluid hydration, PPI, Carafate. Diet, Antibiotics as per surgery. Fioricet added to med regimen for headache. Labs ordered. The impression and plan of care has been dictated as directed. : I performed a history and examination of this patient, discussed the same with the dictator. I agree with the dictator's note ,documented as a scribe. Any additional findings or plans will be noted.
[2020-02-16 16:09] LABS: African American GFR (CKD) >90 (>60 ml/min/1.73 sqM); Anion Gap 8 mmol/L; Blood Urea Nitrogen 4 mg/dL (7-17); Carbon Dioxide 18 mmol/L (22-30); Chloride 114 mmol/L (98-107); Glucose 202 mg/dL (74-99); Non-African American GFR(CKD) 88 (>60 ml/min/1.73 sqM); Potassium 3.9 mmol/L (3.5-5.1); Sodium 140 mmol/L (137-145)
[2020-02-16 16:51] LABS: Glucose,Whole Blood 148 mg/dL (75-99)
[2020-02-16 16:52] LABS: HCT 35.2 % (34.0-46.0); Hypochromasia Moderate; MCH 31.4 pg (25.0-35.0); MCHC 31.1 g/dL (31.0-37.0); MCV 100.8 fL (80.0-100.0); Macrocytosis Slight; Platelet Count 182 k/uL (150-450); RDW 13.5 % (11.5-15.5)
[2020-02-16 19:45] LABS: Glucose,Whole Blood 96 mg/dL (75-99)
[2020-02-16] MEDS: BUTALB/APAP/CAFF 50-325-40MG TAB PO PRN (20:18)
[2020-02-16] MEDS: traZODone HCL 50 MG TAB PO SCH (20:19)
[2020-02-17] MEDS: AMPICILLIN-SULBACTAM 3 GM in SODIUM CHLORIDE 0.9% 100 ML IVPB SCH ×2 (00:04→08:00)
[2020-02-17 05:40] VITALS: BP 153/83; PULSE 73; TEMP 98.2
[2020-02-17 07:01] LABS: Glucose,Whole Blood 91 mg/dL (75-99)
[2020-02-17] MEDS: SUCRALFATE 1 GM TAB PO SCH (08:01)
[2020-02-17] MEDS: PANTOPRAZOLE 40 MG TABLET PO SCH (08:01)
[2020-02-17] MEDS: ENOXAPARIN 40 MG/0.4 ML SYRINGE SQ SCH (08:01)
[2020-02-17] MEDS: INSULIN ASPART (NovoLOG) 100 UNIT/ML VIAL SQ SCH (08:01)
[2020-02-17] MEDS: DOCUSATE 100 MG CAP PO SCH (08:01)
[2020-02-17] MEDS: SODIUM CHLORIDE 0.9% 1,000 ML IV SCH (08:02)
[2020-02-17] MEDS: BUTALB/APAP/CAFF 50-325-40MG TAB PO PRN (08:03)
[2020-02-17] MEDS ORDERED: diphenhydrAMINE 50 MG/ML 1 ML VIAL IVP PRN (08:50)
[2020-02-17] MEDS ORDERED: ONDANSETRON 4 MG/2 ML VIAL IVP PRN (09:51)
--- NOTE | 2020-02-17 10:14 | P.PN ---
Subjective Progress Note Date: 02/17/20 Adriana Calderón is a 65 yo F with PMH of colonic obstruction requiring R hemicolectomy, hiatal hernia s/p josephine fundoplication, T2DM who presented to the ED complaining of epigastric pain after eating the past few days. She feels it has become worse lately, she also notes loose stool around this time. Denies any fever, chills, cough, chest pain or nausea. On presentation vitals stable, labs significant for Cr 1.08 and urine bacteria present. CT abd/pelvis shows dilation and edema at epigastric ileo-colonic junction. 02/16/2020 ambulating in room, tolerating activity well. Complains of headache, she has a history of migraines for which she takes normally Excedrin Migraine with good results. Continues on IV fluid hydration. On a regular diet, reports nausea, no emesis, burping, positive bloating, fluctuating diffuse abdominal pain, positive bowel movement. Afebrile. Denies chest pain, palpitations or shortness of breath. 02/17/20 sitting up in chair, reports abdominal pain unchanged, loose stools better. Yesterday consuming 75-100% of dysphasia 3 chopped diet. Denies nausea or vomiting. Afebrile. Denies chest pain, palpitations or shortness of breath. labs pending. Objective - Vital Signs Vital signs: Vital Signs Temp 98.2 F 02/17/20 05:00 Pulse 73 02/17/20 05:00 Resp 18 02/17/20 05:00 BP 153/83 02/17/20 05:00 Pulse Ox 98 02/17/20 05:00 Intake & Output 02/16/20 02/17/20 02/17/20 18:59 06:59 18:59 Intake Total 1900 Balance 1900 Intake: Intake, IV Titration 1300 Amount Ampicillin-Sulbactam 3 gm 100 In Sodium Chloride 0.9% 100 ml @ 200 mls/hr IVPB Q8HR MARK Rx#:[id number] Sodium Chloride 0.9% 1, 1200 000 ml @ 100 mls/hr IV . Q10H MARK Rx#:[id number] Oral 600 Other: Voiding Method Toilet Toilet # Voids 3 1 - Exam General: Sitting up in a chair,NAD Eyes: PERRL, EOMI, conjunctiva normal HENT: normocephalic, mucus membranes moist Neck: supple, no JVD Lungs: normal respiratory effort, no wheezes or rales CV: Regular rate and rhythm, no murmur. Peripheral pulses 2+ Abdomen: soft, nondistended, no organomegaly. Midepigastric tenderness, positive bowel sounds Skin: warm and dry. Neuro: A&Ox3, normal mood and affect. No focal deficits. - Labs CBC & Chem 7: 02/16/20 15:17 02/16/20 15:17 Labs: Abnormal Lab Results - Last 24 Hours (Table) 02/16/20 02/16/20 02/16/20 Range/Units 11:03 15:17 15:17 WBC 3.0 L (3.8-10.6) k/uL RBC 3.50 L (3.80-5.40) m/uL Hgb 11.0 L D (11.4-16.0) gm/dL MCV 100.8 H (80.0-100.0) fL Chloride 114 H (98-107) mmol/L Carbon Dioxide 18 L (22-30) mmol/L BUN 4 L (7-17) mg/dL Glucose 202 H (74-99) mg/dL POC Glucose (mg/dL) 116 H (75-99) mg/dL Calcium 8.0 L (8.4-10.2) mg/dL 02/16/20 Range/Units 16:49 WBC (3.8-10.6) k/uL RBC (3.80-5.40) m/uL Hgb (11.4-16.0) gm/dL MCV (80.0-100.0) fL Chloride (98-107) mmol/L Carbon Dioxide (22-30) mmol/L BUN (7-17) mg/dL Glucose (74-99) mg/dL POC Glucose (mg/dL) 148 H (75-99) mg/dL Calcium (8.4-10.2) mg/dL Assessment and Plan Assessment: (1) Colitis Current Visit: Yes Status: Acute Code(s): K52.9 - NONINFECTIVE GASTROENTERITIS AND COLITIS, UNSPECIFIED SNOMED Code(s): 83784050 (2) Partial intestinal obstruction Current Visit: Yes Status: Acute Code(s): K56.600 - PARTIAL INTESTINAL OBSTRUCTION, UNSPECIFIED TO CAUSE SNOMED Code(s): 11192247674733095 (3) Partial small bowel obstruction Current Visit: Yes Status: Acute Code(s): K56.600 - PARTIAL INTESTINAL OBSTRUCTION, UNSPECIFIED TO CAUSE SNOMED Code(s): 418569926 (4) Status post Josephine fundoplication Current Visit: Yes Status: Acute Code(s): Z98.890 - OTHER SPECIFIED POSTPROCEDURAL STATES SNOMED Code(s): 839461716 (5) Type 2 diabetes mellitus Current Visit: No Status: Acute Code(s): E11.9 - TYPE 2 DIABETES MELLITUS WITHOUT COMPLICATIONS SNOMED Code(s): 74052484 (6) gastroesophageal reflux disease (7) insomnia Plan: Continue on current medication regime ,monitoring and symptomatic treatment. Probiotics added to med regimen .Labs pending. Pain management/antibiotics as per surgery. Increase ambulation as tolerated. The impression and plan of care has been dictated as directed. : I performed a history and examination of this patient, discussed the same with the dictator. I agree with the dictator's note ,documented as a scribe. Any additional findings or plans will be noted.
[2020-02-17] MEDS ORDERED: LACTOBACILLUS ACIDOPH & BULGAR 1 EACH PACKET PO SCH (10:15)
--- NOTE | 2020-02-17 10:58 | P.DS ---
Providers Date of admission: 02/12/20 15:58 Expected date of discharge: 02/17/20 Attending physician: Reji Rangel Consults: 02/12/20 20:47 Consult Physician Urgent Consulting Provider: Dmitry Lewis Consult Reason/Comments: Medical haroon. Do you want consulting provider notified?: Yes Primary care physician: Karen Snowden Hospital Course: Discharge diagnosis 1. Epigastric abdominal pain possible secondary to her abdominal wall hernia 2. Ileus secondary to UTI 3. Thickening at the ileal side of the anastomosis. We will continue to observe 4. UTI with Klebsiella pneumonia growing in culture. She completed 5 day treatment of antibiotics during her hospitalization. 5. History of recent Josephine fundoplication Hospital course This is a 65-year-old female who presented to the hospital with complaints of epigastric abdominal pain with nausea and vomiting. She was found to have evidence of ileus which was noted on CAT scan. This was likely secondary to UTI. She was receiving antibiotics for her urinary tract infection. She is now having bowel movements and tolerating diet. She's afebrile. Patient will follow-up with Dr. Rangel in the office in one week. If she continues to have epigastric discomfort he will plan for endoscopy outpatient. Patient is stable for discharge. Please refer to chart for further details. Physician Deputy Clerk Of Court note has been reviewed by physician. Signing provider agrees with the documented findings, assessment, and plan of care. Patient Condition at Discharge: Stable Plan - Discharge Summary New Discharge Prescriptions: Continue Sucralfate [Carafate] 1 gram PO BID traZODone HCL 50 mg PO HS Docusate [Colace] 100 mg PO HS Discharge Medication List Sucralfate [Carafate] 1 gram PO BID 05/10/17 [History] traZODone HCL 50 mg PO HS 02/11/19 [History] Docusate [Colace] 100 mg PO HS 01/09/20 [History] Follow up Appointment(s)/Referral(s): Karen Snowden DO [Primary Care Provider] - 1-2 days Reji Rangel MD [STAFF PHYSICIAN] - 1 Week Activity/Diet/Wound Care/Special Instructions: Diet: regular Activity: as tolerated Discharge Disposition: HOME SELF-CARE
[2020-02-17 11:18] LABS: Glucose,Whole Blood 122 mg/dL (75-99)
[2020-02-17 11:31] LABS: Basophils # (A) 0.1 k/uL (0-0.2); Basophils % (A) 1 %; Eosinophils # (A) 0.1 k/uL (0-0.7); Eosinophils % (A) 3 %; HCT 38.4 % (34.0-46.0); HGB 12.1 gm/dL (11.4-16.0); Hypochromasia Slight; Lymphocytes # (A) 0.9 k/uL (1.0-4.8); Lymphocytes % (A) 23 %; MCH 31.2 pg (25.0-35.0); MCHC 31.6 g/dL (31.0-37.0); MCV 98.6 fL (80.0-100.0); Mean Platelet Volume 7.7; Monocytes # (A) 0.2 k/uL (0-1.0); Monocytes % (A) 5 %; Neutrophils # (A) 2.6 k/uL (1.3-7.7); Neutrophils % (A) 66 %; Platelet Count 220 k/uL (150-450); RDW 13.9 % (11.5-15.5); WBC 3.9 k/uL (3.8-10.6)
[2020-02-17 11:46] LABS: Calcium 8.7 mg/dL (8.4-10.2); Potassium 4.1 mmol/L (3.5-5.1)
== END 2020-02-17 11:50 | disposition home or self-care (01) | DRG 394 ==
LOC: EC 14:12 → 5NMEDONC 15:58
PROVIDERS: ADMIT Surgery; ATTEND Surgery
DX: K43.9 Ventral hernia without obstruction or gangrene (principal); K56.600 Partial intestinal obstruction, unspecified as to cause; K56.7 Ileus, unspecified; N39.0 Urinary tract infection, site not specified; I25.10 Atherosclerotic heart disease of native coronary artery without angina pectoris; K52.9 Noninfective gastroenteritis and colitis, unspecified; R41.3 Other amnesia; G47.00 Insomnia, unspecified; R13.10 Dysphagia, unspecified; G43.909 Migraine, unspecified, not intractable, without status migrainosus; R47.02 Dysphasia; E78.5 Hyperlipidemia, unspecified; K21.9 Gastro-esophageal reflux disease without esophagitis; M19.90 Unspecified osteoarthritis, unspecified site; H26.9 Unspecified cataract; B96.1 Klebsiella pneumoniae [K. pneumoniae] as the cause of diseases classified elsewhere; E11.40 Type 2 diabetes mellitus with diabetic neuropathy, unspecified; E11.22 Type 2 diabetes mellitus with diabetic chronic kidney disease; E11.51 Type 2 diabetes mellitus with diabetic peripheral angiopathy without gangrene; N18.3 Chronic kidney disease, stage 3 (moderate); Z90.49 Acquired absence of other specified parts of digestive tract; Z87.891 Personal history of nicotine dependence; Z98.41 Cataract extraction status, right eye; Z98.42 Cataract extraction status, left eye; Z98.890 Other specified postprocedural states; Z79.899 Other long term (current) drug therapy; Z88.5 Allergy status to narcotic agent; Z88.2 Allergy status to sulfonamides; Z82.49 Family history of ischemic heart disease and other diseases of the circulatory system; Z80.3 Family history of malignant neoplasm of breast; Z82.3 Family history of stroke
CPT/HCPCS: 36415; 74177; 80048; 80053; 81001; 82150; 83605; 83690; 84484; 85025; 85027; 87077; 87086; 87186; 96361; 96365; 96375; 99285

== ENCOUNTER 2020-03-04 00:09 | Emergency (ER) | payer BC ==
[2020-03-04 00:16] VITALS: BP 177/81; PULSE 84; RESP 20; TEMP 99.1
[2020-03-04] MEDS ORDERED: ONDANSETRON 4 MG/2 ML VIAL IVP STA (00:42)
[2020-03-04] MEDS ORDERED: SODIUM CHLORIDE 0.9% 1,000 ML IV STA ×2 (00:42)
--- NOTE | 2020-03-04 01:09 | ED ---
Abdominal Pain HPI - General Chief Complaint: Abdominal Pain Stated Complaint: Abdominal pain Time Seen by Provider: 03/04/20 00:18 Source: patient, family, RN notes reviewed, old records reviewed Mode of arrival: ambulatory Limitations: no limitations - History of Present Illness Initial Comments: Patient is a 61 for a female who presents emergency room today with chief complaint of right lower quadrant abdominal pain. Patient reports symptoms starting this evening. She wishes concerned for constipation versus early bowel obstruction or ileus. She states she was small bowel movement today after taking a stool softener but his Lantus this could be the beginning of another obstruction. Patient states that she has had some nausea and feels full up to her throat. - Related Data Home Medications Medication Instructions Recorded Confirmed Sucralfate [Carafate] 1 gram PO BID 05/10/17 02/12/20 traZODone HCL 50 mg PO HS 02/11/19 02/12/20 Docusate [Colace] 100 mg PO HS 01/09/20 02/12/20 Previous Rx's Medication Instructions Recorded Lactobacillus Acidoph & Bulgar 1 each PO TID #42 packet 02/17/20 [Lactinex] Pantoprazole [Protonix] 40 mg PO DAILY #30 tablet. 02/17/20 Allergies Allergy/AdvReac Type Severity Reaction Status Date / Time morphine Allergy Rash/Hives Verified 03/04/20 00:16 sulfamethoxazole Allergy ABD PAIN Verified 03/04/20 00:16 [From Bactrim] Review of Systems ROS Statement: Those systems with pertinent positive or pertinent negative responses have been documented in the HPI. ROS Other: All systems not noted in ROS Statement are negative. 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 bowel resection for obstruction, amalia cataracts, Past Anesthesia/Blood Transfusion Reactions: No Reported Reaction Past Psychological History: No Psychological Hx Reported Smoking Status: Former smoker Past Alcohol Use History: Rare Past Drug Use History: None Reported - Past Family History Mother Family Medical History: Cancer, CVA/TIA, Pulmonary Embolus Additional Family Medical History / Comment(s): breast cancer Father Family Medical History: CVA/TIA, Myocardial Infarction (AR) Additional Family Medical History / Comment(s): . Brother(s) Family Medical History: Congestive Heart Failure (CHF) Additional Family Medical History / Comment(s): CABG General Exam - General Exam Comments Initial Comments: Respiratory and 65-year-old female. Limitations: no limitations General appearance: alert, in no apparent distress Head exam: Present: atraumatic, normocephalic, normal inspection Eye exam: Present: normal appearance, PERRL, EOMI. Absent: scleral icterus, conjunctival injection, periorbital swelling ENT exam: Present: normal exam, mucous membranes moist Neck exam: Present: normal inspection. Absent: tenderness, meningismus, lymphadenopathy Respiratory exam: Present: normal lung sounds bilaterally. Absent: respiratory distress, wheezes, rales, rhonchi, stridor Cardiovascular Exam: Present: regular rate, normal rhythm, normal heart sounds. Absent: systolic murmur, diastolic murmur, rubs, gallop, clicks GI/Abdominal exam: Present: soft, normal bowel sounds. Absent: distended, tenderness, guarding, rebound, rigid Extremities exam: Present: normal inspection, full ROM, normal capillary refill. Absent: tenderness, pedal edema, joint swelling, calf tenderness Back exam: Present: normal inspection Neurological exam: Present: alert, oriented X3, CN II-XII intact Psychiatric exam: Present: normal affect, normal mood Skin exam: Present: warm, dry, intact, normal color. Absent: rash Course Vital Signs 03/04/20 00:10 Temperature 99.1 F Pulse Rate 84 Respiratory 20 Rate Blood Pressure 177/81 O2 Sat by Pulse 97 Oximetry Medical Decision Making - Medical Decision Making This 5-year-old female presents returned today with complaints of abdominal distention and able to have a bowel movement. Patient concern for ileus and obstruction. Patient's had bowel resection and her surgeon is Dr. Rangel She scheduled to have a CT of her abdomen pelvis on Sunday. Labs reviewed and unremarkable. She does complain of pain and worsening on the right side which is given IV pain medication. Pt CT was completed today and shows no signs of bowel obstruction. Pt advised to follow up with PCP and surgeon. Discussed return parameters. - Lab Data Result diagrams: 03/04/20 01:18 03/04/20 01:18 Lab Results 03/04/20 03/04/20 03/04/20 Range/Units 01:18 01:18 01:18 WBC 8.3 (3.8-10.6) k/uL RBC 4.23 (3.80-5.40) m/uL Hgb 13.0 (11.4-16.0) gm/dL Hct 41.1 (34.0-46.0) % MCV 97.3 (80.0-100.0) fL MCH 30.8 (25.0-35.0) pg MCHC 31.7 (31.0-37.0) g/dL RDW 13.9 (11.5-15.5) % Plt Count 250 (150-450) k/uL Neutrophils % 82 % Lymphocytes % 12 % Monocytes % 4 % Eosinophils % 1 % Basophils % 0 % Neutrophils # 6.8 (1.3-7.7) k/uL Lymphocytes # 1.0 (1.0-4.8) k/uL Monocytes # 0.3 (0-1.0) k/uL Eosinophils # 0.1 (0-0.7) k/uL Basophils # 0.0 (0-0.2) k/uL Sodium 140 (137-145) mmol/L Potassium 4.0 (3.5-5.1) mmol/L Chloride 107 (98-107) mmol/L Carbon Dioxide 23 (22-30) mmol/L Anion Gap 10 mmol/L BUN 24 H (7-17) mg/dL Creatinine 1.05 H (0.52-1.04) mg/dL Est GFR (CKD-EPI)AfAm 65 (>60 ml/min/1.73 sqM) Est GFR (CKD-EPI)NonAf 56 (>60 ml/min/1.73 sqM) Glucose 160 H (74-99) mg/dL POC Glucose (mg/dL) (75-99) mg/dL POC Glu Supervisor Shipping Room ID Calcium 9.2 (8.4-10.2) mg/dL Total Bilirubin 0.4 (0.2-1.3) mg/dL AST 24 (14-36) U/L ALT 14 (4-34) U/L Alkaline Phosphatase 89 (38-126) U/L Total Protein 6.7 (6.3-8.2) g/dL Albumin 4.2 (3.5-5.0) g/dL Amylase 49 (30-110) U/L Lipase 114 (23-300) U/L Urine Color Yellow Urine Appearance Cloudy H (Clear) Urine pH 5.5 (5.0-8.0) Ur Specific [place] 1.028 (1.001-1.035) Urine Protein Trace H (Negative) Urine Glucose (UA) Negative (Negative) Urine Ketones Negative (Negative) Urine Blood Small H (Negative) Urine Nitrite Negative (Negative) Urine Bilirubin Negative (Negative) Urine Urobilinogen <2.0 (<2.0) mg/dL Ur Leukocyte Esterase Moderate H (Negative) Urine RBC 4 (0-5) /hpf Urine WBC 8 H (0-5) /hpf Ur Squamous Epith Cells 11 H (0-4) /hpf Urine Bacteria Rare H (None) /hpf Urine Mucus Rare H (None) /hpf 03/04/20 Range/Units 02:42 WBC (3.8-10.6) k/uL RBC (3.80-5.40) m/uL Hgb (11.4-16.0) gm/dL Hct (34.0-46.0) % MCV (80.0-100.0) fL MCH (25.0-35.0) pg MCHC (31.0-37.0) g/dL RDW (11.5-15.5) % Plt Count (150-450) k/uL Neutrophils % % Lymphocytes % % Monocytes % % Eosinophils % % Basophils % % Neutrophils # (1.3-7.7) k/uL Lymphocytes # (1.0-4.8) k/uL Monocytes # (0-1.0) k/uL Eosinophils # (0-0.7) k/uL Basophils # (0-0.2) k/uL Sodium (137-145) mmol/L Potassium (3.5-5.1) mmol/L Chloride (98-107) mmol/L Carbon Dioxide (22-30) mmol/L Anion Gap mmol/L BUN (7-17) mg/dL Creatinine (0.52-1.04) mg/dL Est GFR (CKD-EPI)AfAm (>60 ml/min/1.73 sqM) Est GFR (CKD-EPI)NonAf (>60 ml/min/1.73 sqM) Glucose (74-99) mg/dL POC Glucose (mg/dL) 165 H (75-99) mg/dL POC Glu Supervisor Shipping Room ID Della Monge Calcium (8.4-10.2) mg/dL Total Bilirubin (0.2-1.3) mg/dL AST (14-36) U/L ALT (4-34) U/L Alkaline Phosphatase (38-126) U/L Total Protein (6.3-8.2) g/dL Albumin (3.5-5.0) g/dL Amylase (30-110) U/L Lipase (23-300) U/L Urine Color Urine Appearance (Clear) Urine pH (5.0-8.0) Ur Specific [place] (1.001-1.035) Urine Protein (Negative) Urine Glucose (UA) (Negative) Urine Ketones (Negative) Urine Blood (Negative) Urine Nitrite (Negative) Urine Bilirubin (Negative) Urine Urobilinogen (<2.0) mg/dL Ur Leukocyte Esterase (Negative) Urine RBC (0-5) /hpf Urine WBC (0-5) /hpf Ur Squamous Epith Cells (0-4) /hpf Urine Bacteria (None) /hpf Urine Mucus (None) /hpf - Radiology Data Radiology results: report reviewed There is some mild small bowel gas related to minimal ileus. The change compared old exam. No definite sign of bowel obstruction. REviewed CT scan, no obstruction. Post surgical changes. No acute abdomen or pelvis. Disposition Clinical Impression: Abdominal pain Disposition: HOME SELF-CARE Condition: Stable Is patient prescribed a controlled substance at d/c from ED?: No Referrals: Karen Snowden DO [Primary Care Provider] - 1-2 days Time of Disposition: 13:51
[2020-03-04 01:26] LABS: Appearance,Urine Cloudy (Clear); Bacteria,Urine Rare /hpf; Bilirubin,Urine Negative (Negative); Blood,Urine Small (Negative); Color,Urine Yellow; Glucose,Urine (UA) Negative (Negative); Ketones,Urine Negative (Negative); Leukocyte Esterase,Urine Moderate (Negative); Mucus,Urine Rare /hpf; Nitrite,Urine Negative (Negative); PH, Urine 5.5 (5.0-8.0); Protein,Urine Trace (Negative); RBC,Urine 4 /hpf (0-5); Specific Gravity,Urine 1.028 (1.001-1.035); Squamous Epithelial Cell,Urine 11 /hpf (0-4); Urobilinogen,Urine <2.0 mg/dL (<2.0); WBC,Urine 8 /hpf (0-5)
[2020-03-04 01:33] LABS: Basophils % (A) 0 %; Eosinophils # (A) 0.1 k/uL (0-0.7); Eosinophils % (A) 1 %; HCT 41.1 % (34.0-46.0); Lymphocytes % (A) 12 %; MCH 30.8 pg (25.0-35.0); MCHC 31.7 g/dL (31.0-37.0); MCV 97.3 fL (80.0-100.0); Mean Platelet Volume 7.3; Monocytes # (A) 0.3 k/uL (0-1.0); Monocytes % (A) 4 %; Neutrophils # (A) 6.8 k/uL (1.3-7.7); Neutrophils % (A) 82 %; Platelet Count 250 k/uL (150-450); RBC 4.23 m/uL (3.80-5.40); RDW 13.9 % (11.5-15.5); WBC 8.3 k/uL (3.8-10.6)
--- NOTE | 2020-03-04 01:44 | XR ---
EXAMINATION TYPE: XR KUB DATE OF EXAM: 03/04/2020 COMPARISON: 12/06/2019 HISTORY: Abdominal pain TECHNIQUE: 2 views upright FINDINGS: There are some mild gas-filled distended small bowel loops in the mid abdomen. There is no evidence of free air. There are clips from cholecystectomy. Lung bases are clear. There are no pathol ogic calcifications over the kidneys. I see no evidence of a mass. IMPRESSION: There is some mild small bowel gas that could relate to minimal ileus and is a change com pared to old exam. No free air. No definite sign of a bowel obstruction.
[2020-03-04 01:51] LABS: Albumin 4.2 g/dL (3.5-5.0); Calcium 9.2 mg/dL (8.4-10.2); Total Bilirubin 0.4 mg/dL (0.2-1.3); Total Protein 6.7 g/dL (6.3-8.2)
[2020-03-04] MEDS ORDERED: HYDROmorphone 1 MG/ML 1 ML SYRINGE IVP STA ×2 (02:22→03:28)
[2020-03-04] MEDS ORDERED: KETOROLAC 15 MG/ML 1 ML VIAL IVP STA (02:23)
[2020-03-04 02:43] LABS: Glucose,Whole Blood 165 mg/dL (75-99)
[2020-03-04] MEDS ORDERED: MAGNESIUM CITRATE 296 ML BOTTLE PO STA (03:28)
[2020-03-04] MEDS ORDERED: MAGNESIUM CITRATE 296 ML BOTTLE ONE (04:08)
--- NOTE | 2020-03-04 05:12 | CT ---
EXAMINATION TYPE: CT abdomen pelvis w con DATE OF EXAM: 03/04/2020 COMPARISON: 02/12/2020 HISTORY: ABd pain, ileus CT DLP: 2268 mGycm Automated exposure control for dose reduction was used. CONTRAST: Performed with IV Contrast, patient injected with 80 mL of Isovue 300. Images were obtained from the diaphragm to the floor the pelvis with IV contrast. Lung bases are clear of consolidation. There is no pleural effusion. There is no pericardial effusion . Heart is top normal in size. There is epigastric ventral hernia that contains fat. Unchanged. There are clips at the gastric fundus. Liver shows no focal defect. There are clips from cholecystect jessica. Spleen is intact. Stomach has normal size. There is no adrenal mass. The bile ducts are not dilated. Kidneys show satisfactory contrast opacification. There is no hydronephrosis. There is 3 cm cortical cyst posterior left kidney. There is no retroperitoneal adenopathy. There is broad-based umbilical he rnia that contains fat. There is previous bowel surgery with surgical clips in the mid abdomen. Bladd er distends smoothly. There is no inguinal hernia. There is no free fluid in the pelvis. Small bowel measures up to 2.5 cm. I do not see evidence for bowel obstruction. There is some osteopenia. I see no significant compression deformity of the lumbar vertebra. Bony pel vis is intact. Hip joints are intact. Uterus is anteverted. Appendix not seen with certainty. No sign of a thickened appendix. There is no evidence for a bowel o bstruction. There is no mesenteric edema. There is no ascites or free air. IMPRESSION: Previous bowel surgery. Mild umbilical hernia containing fat. No evidence of bowel obstruction. No si gn of acute abdomen and pelvis. There is clearing of the distended loops of small bowel in the mid abdomen compared to old exam.
== END 2020-03-04 04:20 | disposition home or self-care (01) ==
LOC: EC 00:09
DX: R10.31 Right lower quadrant pain (principal); R14.0 Abdominal distension (gaseous); K21.9 Gastro-esophageal reflux disease without esophagitis; Z79.899 Other long term (current) drug therapy; Z88.5 Allergy status to narcotic agent; Z88.2 Allergy status to sulfonamides; Z90.49 Acquired absence of other specified parts of digestive tract; Z87.891 Personal history of nicotine dependence; Z98.890 Other specified postprocedural states
CPT/HCPCS: 36415; 80053; 82150; 83690; 85025; 81001; 74018; 74177; 99285; 96374; 96375 ×2; 96361 ×5; J2405; J1170; J1885; Q9967

== ENCOUNTER 2020-09-16 22:28 | Emergency (ER) | payer BC ==
[2020-09-16 22:43] VITALS: BP 143/81; PULSE 72; RESP 18; TEMP 98.7
[2020-09-17] MEDS ORDERED: BAMLANIVIMAB (EUA) 700 MG in SODIUM CHLORIDE 0.9% 50 ML IVPB ONE (04:02)
--- NOTE | 2020-09-17 05:37 | XR ---
Abdomen single view. History abdominal pain. Comparison 03/04/2020. FINDINGS: 2 views upright were obtained. There is no sign of intestinal obstruction or pneumoperitoneum. Fecal pattern is normal. There are clips from cholecystectomy. Lung bases are clear. There are no calcifica tions over the kidneys. IMPRESSION: Nonacute abdomen. No adverse change.
[2020-09-17 07:42] LABS: Appearance,Urine Clear (Clear); Bilirubin,Urine Negative (Negative); Blood,Urine Negative (Negative); Color,Urine Yellow; Glucose,Urine (UA) Negative (Negative); Hyaline Casts,Urine 3 /lpf (0-2); Ketones,Urine Negative (Negative); Leukocyte Esterase,Urine Negative (Negative); Mucus,Urine Rare /hpf; Nitrite,Urine Negative (Negative); PH, Urine 5.5 (5.0-8.0); Protein,Urine Trace (Negative); RBC,Urine <1 /hpf (0-5); Specific Gravity,Urine 1.024 (1.001-1.035); Squamous Epithelial Cell,Urine 1 /hpf (0-4); Urobilinogen,Urine <2.0 mg/dL (<2.0); WBC,Urine 1 /hpf (0-5)
[2020-09-17 07:53] LABS: Albumin 4.3 g/dL (3.5-5.0); Potassium 4.7 mmol/L (3.5-5.1); Total Bilirubin 0.3 mg/dL (0.2-1.3); Total Protein 6.9 g/dL (6.3-8.2)
[2020-09-17 08:21] LABS: Basophils % (A) 1 %; Eosinophils % (A) 1 %; HCT 43.5 % (34.0-46.0); HGB 14.6 gm/dL (11.4-16.0); Lymphocytes # (A) 0.6 k/uL (1.0-4.8); Lymphocytes % (A) 23 %; MCH 32.4 pg (25.0-35.0); MCHC 33.5 g/dL (31.0-37.0); MCV 96.8 fL (80.0-100.0); Mean Platelet Volume 7.1; Monocytes # (A) 0.1 k/uL (0-1.0); Monocytes % (A) 5 %; Neutrophils # (A) 1.9 k/uL (1.3-7.7); Neutrophils % (A) 71 %; Platelet Count 162 k/uL (150-450); RDW 12.9 % (11.5-15.5); WBC 2.7 k/uL (3.8-10.6)
--- NOTE | 2020-09-17 10:07 | CT ---
EXAM: CT Abdomen and Pelvis With Intravenous Contrast CLINICAL HISTORY: abd pain with N+V TECHNIQUE: Axial computed tomography images of the abdomen and pelvis with intravenous contrast. CTDI is 24.37 mGy and DLP is 1037.1 mGy-cm. This CT exam was performed using one or more of the following dose reduction techniques: automated exposure control, adjustment of the mA and/or kV according to patient size, and/or use of iterative reconstruction technique. COMPARISON: February 12, 2020 FINDINGS: Lung bases: Incompletely seen a regular pulmonary density along the left major fissure in the left upper lobe measuring 9 x 12 mm. Additional semisolid 8 mm density in the left lower lobe. Consider scanning the full chest. ABDOMEN: Liver: Unremarkable. No mass. Gallbladder and bile ducts: Cholecystectomy. No ductal dilation. Pancreas: Unremarkable. No mass. No ductal dilation. Spleen: Unremarkable. No splenomegaly. Adrenals: Unremarkable. No mass. Kidneys and ureters: Unremarkable. No solid mass. No hydronephrosis. Stomach and bowel: Previous fundoplication. Previous right hemicolectomy with midline ileocolic anastomosis, similar to prior study. No evidence of diffuse small bowel obstruction. PELVIS: Appendix: See above. Bladder: Unremarkable. No mass. Reproductive: Unremarkable as visualized. ABDOMEN and PELVIS: Intraperitoneal space: Unremarkable. No free air. No significant fluid collection. Bones/joints: No acute fracture. No dislocation. Soft tissues: Small midline ventral hernia containing fat. Vasculature: Unremarkable. No abdominal aortic aneurysm. Lymph nodes: Unremarkable. No enlarged lymph nodes. IMPRESSION: Incompletely seen a regular pulmonary density along the left major fissure in the left upper lobe measuring 9 x 12 mm. Additional semisolid 8 mm density in the left lower lobe. Consider scanning the full chest. Previous bowel surgery. No evidence of bowel obstruction. No abnormal fluid.
[2020-09-17] MEDS ORDERED: SODIUM CHLORIDE 0.9% 1,000 ML BAG ONE (23:59)
[2020-09-17] MEDS ORDERED: HYDROmorphone 0.5 MG/0.5 ML SYRINGE ONE (23:59)
[2020-09-17] MEDS ORDERED: ONDANSETRON 4 MG/2 ML VIAL ONE (23:59)
== END 2020-09-17 06:32 ==
LOC: EC 22:28
DX: U07.1 COVID-19 (principal); R91.8 Other nonspecific abnormal finding of lung field; R10.13 Epigastric pain; Z90.49 Acquired absence of other specified parts of digestive tract; Z87.19 Personal history of other diseases of the digestive system; Z87.891 Personal history of nicotine dependence
CPT/HCPCS: 36415; 80053; 83690; 84484; 85025; 81003; 87635; 74018; 74177; 99284; 96374; 96361; J2405; J1170; Q9967; Q0239

== ENCOUNTER 2020-09-18 04:44 | Observation (INO) | payer BC ==
--- NOTE | 2020-09-18 05:13 | ED ---
General Adult HPI - General Source: patient Mode of arrival: ambulatory Limitations: no limitations <Jose G Bright - Last Filed: 09/18/20 05:12> - General Source: RN notes reviewed, old records reviewed - History of Present Illness -: days(s) Location: chest Radiation: non-radiation Severity scale (1-10): 4 Quality: aching, crushing Consistency: intermittent Improves with: none Worsens with: none Associated Symptoms: chest pain Treatments Prior to Arrival: none <Noah Allen - Last Filed: 09/18/20 09:57> - General Chief complaint: Upper Respiratory Infection Stated complaint: Chest pain, COVID+ Time Seen by Provider: 09/18/20 05:03 - History of Present Illness Initial comments: This is a 65-year-old female known coronavirus for chest pain today. Patient also has history of coronary artery disease with persistent chest pain here in the ER. Patient states she was diagnosed with colitis 2 days ago has been persistently with a fever nauseous dizzy sore throat. Patient's chest pain is persistent (Noah Allen) - Related Data Home Medications Medication Instructions Recorded Confirmed Sucralfate [Carafate] 1 gram PO BID 05/10/17 02/12/20 traZODone HCL 50 mg PO HS 02/11/19 02/12/20 Docusate [Colace] 100 mg PO HS 01/09/20 02/12/20 Previous Rx's Medication Instructions Recorded Lactobacillus Acidoph & Bulgar 1 each PO TID #42 packet 02/17/20 [Lactinex] Pantoprazole [Protonix] 40 mg PO DAILY #30 tablet. 02/17/20 Allergies Allergy/AdvReac Type Severity Reaction Status Date / Time morphine Allergy Rash/Hives Verified 09/18/20 04:58 sulfamethoxazole Allergy ABD PAIN Verified 09/18/20 04:58 [From Bactrim] Review of Systems ROS Other: All systems not noted in ROS Statement are negative. <Jose G Bright - Last Filed: 09/18/20 05:12> ROS Other: All systems not noted in ROS Statement are negative. <Noah Allen - Last Filed: 09/18/20 09:57> ROS Statement: Those systems with pertinent positive or pertinent negative responses have been documented in the HPI. 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 bowel resection for obstruction, amalia cataracts, Past Anesthesia/Blood Transfusion Reactions: No Reported Reaction Past Psychological History: No Psychological Hx Reported Smoking Status: Former smoker Past Alcohol Use History: Rare Past Drug Use History: None Reported - Past Family History Mother Family Medical History: Cancer, CVA/TIA, Pulmonary Embolus Additional Family Medical History / Comment(s): breast cancer Father Family Medical History: CVA/TIA, Myocardial Infarction ([place]) Additional Family Medical History / Comment(s): . Brother(s) Family Medical History: Congestive Heart Failure (CHF) Additional Family Medical History / Comment(s): CABG <KailaJose G - Last Filed: 09/18/20 05:12> General Exam Limitations: no limitations <KailaJose G - Last Filed: 09/18/20 05:12> General appearance: alert, in no apparent distress, anxious Head exam: Present: atraumatic, normocephalic, normal inspection Eye exam: Present: normal appearance, PERRL, EOMI. Absent: scleral icterus, conjunctival injection, periorbital swelling ENT exam: Present: normal exam, mucous membranes moist Neck exam: Present: normal inspection. Absent: tenderness, meningismus, lymphadenopathy Respiratory exam: Present: normal lung sounds bilaterally. Absent: respiratory distress, wheezes, rales, rhonchi, stridor Cardiovascular Exam: Present: regular rate, normal rhythm, normal heart sounds. Absent: systolic murmur, diastolic murmur, rubs, gallop, clicks GI/Abdominal exam: Present: soft, normal bowel sounds. Absent: distended, tenderness, guarding, rebound, rigid Extremities exam: Present: normal inspection, full ROM, normal capillary refill. Absent: tenderness, pedal edema, joint swelling, calf tenderness Back exam: Present: normal inspection Neurological exam: Present: alert, oriented X3, CN II-XII intact Psychiatric exam: Present: normal affect, normal mood Skin exam: Present: warm, dry, intact, normal color. Absent: rash <Noah Allen - Last Filed: 09/18/20 09:57> Course <Noah Allen - Last Filed: 09/18/20 09:57> Vital Signs 09/18/20 09/18/20 09/18/20 04:53 07:07 09:31 Temperature 99.4 F 97.8 F 98.5 F Pulse Rate 91 73 76 Respiratory 20 22 18 Rate Blood Pressure 137/70 151/88 146/85 O2 Sat by Pulse 95 97 97 Oximetry - Reevaluation(s) Reevaluation #1: 09/18/20 09:54 Patient remains a chest pain here in the ER (Noah Allen) Reevaluation #2: 09/18/20 09:54 Spoke with patient regarding findings here in the ER and questions are answered (Noah Allen) - Consultations Consultation #1: Spoke with [facility] to admit this patient (Noah Allen) EKG Findings - EKG Results: EKG: interpreted by JORGE JONES, sinus rhythm (Rate 79 bpm), normal axis, normal QRS, normal ST/T, no acute changes <Jose G Bright - Last Filed: 09/18/20 05:12> Medical Decision Making - Lab Data Result diagrams: 09/18/20 05:55 09/18/20 05:55 - Radiology Data Radiology results: report reviewed (CT of chest is negative for PE), image reviewed <Noah Allen - Last Filed: 09/18/20 09:57> - Medical Decision Making 65 female to the ER or evaluation chest pain today. Patient Is a chest pain observation complicated by coronavirus pneumonia. She has had a CTA with negative study for PE, will trend troponins and have pain control (Noah Allen) - Lab Data Lab Results 09/18/20 09/18/20 09/18/20 Range/Units 05:55 05:55 05:55 WBC 3.3 L (3.8-10.6) k/uL RBC 4.45 (3.80-5.40) m/uL Hgb 13.7 (11.4-16.0) gm/dL Hct 42.6 (34.0-46.0) % MCV 95.8 (80.0-100.0) fL MCH 30.8 (25.0-35.0) pg MCHC 32.2 (31.0-37.0) g/dL RDW 12.9 (11.5-15.5) % Plt Count 165 (150-450) k/uL MPV 7.3 Neutrophils % 73 % Lymphocytes % 22 % Monocytes % 4 % Eosinophils % 0 % Basophils % 0 % Neutrophils # 2.4 (1.3-7.7) k/uL Lymphocytes # 0.7 L (1.0-4.8) k/uL Monocytes # 0.1 (0-1.0) k/uL Eosinophils # 0.0 (0-0.7) k/uL Basophils # 0.0 (0-0.2) k/uL PT 9.7 (9.0-12.0) sec INR 0.9 (<1.2) APTT 24.7 (22.0-30.0) sec D-Dimer 0.61 H (<0.60) mg/L FEU Sodium 138 (137-145) mmol/L Potassium 4.5 (3.5-5.1) mmol/L Chloride 107 (98-107) mmol/L Carbon Dioxide 21 L (22-30) mmol/L Anion Gap 10 mmol/L BUN 18 H (7-17) mg/dL Creatinine 0.95 (0.52-1.04) mg/dL Est GFR (CKD-EPI)AfAm 74 (>60 ml/min/1.73 sqM) Est GFR (CKD-EPI)NonAf 64 (>60 ml/min/1.73 sqM) Glucose 115 H (74-99) mg/dL Plasma Lactic Acid [place] (0.7-2.0) mmol/L Calcium 8.8 (8.4-10.2) mg/dL Total Bilirubin 0.5 (0.2-1.3) mg/dL AST 29 (14-36) U/L ALT 14 (4-34) U/L Alkaline Phosphatase 88 (38-126) U/L Troponin I (0.000-0.034) ng/mL NT-Pro-B Natriuret Pep pg/mL Total Protein 6.4 (6.3-8.2) g/dL Albumin 3.8 (3.5-5.0) g/dL 09/18/20 09/18/20 09/18/20 Range/Units 05:55 05:55 05:55 WBC (3.8-10.6) k/uL RBC (3.80-5.40) m/uL Hgb (11.4-16.0) gm/dL Hct (34.0-46.0) % MCV (80.0-100.0) fL MCH (25.0-35.0) pg MCHC (31.0-37.0) g/dL RDW (11.5-15.5) % Plt Count (150-450) k/uL MPV Neutrophils % % Lymphocytes % % Monocytes % % Eosinophils % % Basophils % % Neutrophils # (1.3-7.7) k/uL Lymphocytes # (1.0-4.8) k/uL Monocytes # (0-1.0) k/uL Eosinophils # (0-0.7) k/uL Basophils # (0-0.2) k/uL PT (9.0-12.0) sec INR (<1.2) APTT (22.0-30.0) sec D-Dimer (<0.60) mg/L FEU Sodium (137-145) mmol/L Potassium (3.5-5.1) mmol/L Chloride (98-107) mmol/L Carbon Dioxide (22-30) mmol/L Anion Gap mmol/L BUN (7-17) mg/dL Creatinine (0.52-1.04) mg/dL Est GFR (CKD-EPI)AfAm (>60 ml/min/1.73 sqM) Est GFR (CKD-EPI)NonAf (>60 ml/min/1.73 sqM) Glucose (74-99) mg/dL Plasma Lactic Acid [place] 0.9 (0.7-2.0) mmol/L Calcium (8.4-10.2) mg/dL Total Bilirubin (0.2-1.3) mg/dL AST (14-36) U/L ALT (4-34) U/L Alkaline Phosphatase (38-126) U/L Troponin I <0.012 (0.000-0.034) ng/mL NT-Pro-B Natriuret Pep 496 pg/mL Total Protein (6.3-8.2) g/dL Albumin (3.5-5.0) g/dL Disposition <Jose G Bright - Last Filed: 09/18/20 05:12> Is patient prescribed a controlled substance at d/c from ED?: No <Noah Allen - Last Filed: 09/18/20 09:57> Clinical Impression: Coronary artery disease, Chest pain, Coronavirus infection, Pneumonia due to COVID-19 virus Disposition: ADMITTED IP TO THIS HOSP Condition: Fair Referrals: Karen Snowden DO [Primary Care Provider] - 1-2 days
[2020-09-18] MEDS ORDERED: SODIUM CHLORIDE 0.9% 500 ML 500 ML IV STA (05:29)
[2020-09-18 06:15] LABS: Albumin 3.8 g/dL (3.5-5.0); Calcium 8.8 mg/dL (8.4-10.2); Potassium 4.5 mmol/L (3.5-5.1); Total Bilirubin 0.5 mg/dL (0.2-1.3); Total Protein 6.4 g/dL (6.3-8.2)
[2020-09-18 06:18] LABS: Basophils % (A) 0 %; Eosinophils % (A) 0 %; HCT 42.6 % (34.0-46.0); HGB 13.7 gm/dL (11.4-16.0); Lymphocytes # (A) 0.7 k/uL (1.0-4.8); Lymphocytes % (A) 22 %; MCH 30.8 pg (25.0-35.0); MCHC 32.2 g/dL (31.0-37.0); MCV 95.8 fL (80.0-100.0); Mean Platelet Volume 7.3; Monocytes # (A) 0.1 k/uL (0-1.0); Monocytes % (A) 4 %; Neutrophils # (A) 2.4 k/uL (1.3-7.7); Neutrophils % (A) 73 %; Platelet Count 165 k/uL (150-450); RBC 4.45 m/uL (3.80-5.40); RDW 12.9 % (11.5-15.5); WBC 3.3 k/uL (3.8-10.6)
[2020-09-18 06:27] LABS: INR 0.9 (<1.2); Partial Thromboplastin Time 24.7 sec (22.0-30.0); Prothrombin Time 9.7 sec (9.0-12.0)
[2020-09-18 06:33] LABS: D-Dimer 0.61 mg/L FEU (<0.60)
--- NOTE | 2020-09-18 06:36 | XR ---
EXAM: XR Chest, 2 Views CLINICAL HISTORY: ITS.REASON XR Reason: difficulty breathing TECHNIQUE: Frontal and lateral views of the chest. COMPARISON: January 09, 2020 FINDINGS: Lungs: Unremarkable. No infiltration, atelectasis or mass density. Pleural space: Unremarkable. No pneumothorax. No pleural fluid. Heart: Unremarkable. No cardiomegaly. Mediastinum: Unremarkable. Bones/joints: Unremarkable. No acute abnormalities. IMPRESSION: No acute findings in the chest
[2020-09-18] MEDS ORDERED: Acetaminophen-Codeine 300-30mg TAB PO STA (07:03)
--- NOTE | 2020-09-18 09:05 | CT ---
EXAMINATION TYPE: CT chest angio for PE DATE OF EXAM: 09/18/2020 COMPARISON: None HISTORY: Chest pain CT DLP: 213.9 mGycm Automated exposure control for dose reduction was used. CONTRAST: CT Chest for pulmonary embolism performed with with IV Contrast, patient injected with 64 mL of Isovu e 370. FINDINGS: There are a few scattered small partially consolidative densities in both lungs likely indicating acu te inflammatory process or pulmonary edema. There is no pleural effusion, pleural thickening or pneumothorax. The heart, mediastinum and hilum are normal and there is no mediastinal, hilar or axillary adenopathy . There are no filling defects within the pulmonary circulation to suggest pulmonary embolism. Limited scanning through the upper abdomen reveals no significant abnormality. The osseous structures are intact. IMPRESSION: 1. No evidence of pulmonary embolism 2. Scattered small partially consolidative lung parenchymal densities consistent with inflammation or edema.
[2020-09-18] MEDS ORDERED: HYDROmorphone 1 MG/ML 1 ML SYRINGE IVP STA (09:19)
[2020-09-18] MEDS ORDERED: KETOROLAC 15 MG/ML 1 ML VIAL IVP STA (09:19)
[2020-09-18] MEDS ORDERED: HYDROmorphone 1 MG/ML 1 ML SYRINGE IVP PRN (09:48)
[2020-09-18] MEDS ORDERED: ONDANSETRON 4 MG/2 ML VIAL IVP PRN (09:48)
[2020-09-18] MEDS ORDERED: ACETAMINOPHEN TAB 325 MG TAB PO PRN (09:48)
[2020-09-18] MEDS ORDERED: ALBUTEROL HFA INHALER INHALATION PRN (09:48)
[2020-09-18] MEDS ORDERED: NALOXONE 0.4 MG/ML 1 ML VIAL IV PRN (09:48)
[2020-09-18] MEDS: SODIUM CHLORIDE 0.9% 1,000 ML IV SCH ×2 (10:53→20:19)
[2020-09-18 11:54] LABS: Glucose,Whole Blood 83 mg/dL (75-99)
[2020-09-18] MEDS: LACTOBACILLUS ACIDOPH & BULGAR 1 EACH PACKET PO SCH ×2 (16:11→20:12)
[2020-09-18 17:23] LABS: Glucose,Whole Blood 101 mg/dL (75-99)
[2020-09-18] MEDS: GABAPENTIN 100 MG CAP PO SCH (20:12)
[2020-09-18] MEDS: traZODone HCL 50 MG TAB PO SCH (20:12)
[2020-09-18] MEDS: SUCRALFATE 1 GM TAB PO SCH (20:12)
[2020-09-18 20:37] LABS: Glucose,Whole Blood 155 mg/dL (75-99)
--- NOTE | 2020-09-19 00:08 | P.HPIM ---
History of Present Illness H&P Date: 09/18/20 Chief Complaint: Chest pain , COVID Pneumonia Ms. Zamorano is a 65-year-old female with a past medical history of coronary artery disease, type 2 diabetes mellitus, hypertension, hyperlipidemia, memory impairment, osteoarthritis, IBS, CKD stage III, peripheral vascular disease coming into the hospital with a chief complaint of chest pain. Patient states that she was in the ER couple of days back for fever nausea, abdominal pain with the diarrhea. She was given the monoclonal antibody, BAM, and she was discharged home. She had CAT scan of the abdomen and pelvis that was showing no bowel obstruction but a regular pulmonary density. She was sent home and persistent fevers along with nausea and dizziness. Patient's chest pain also p ersisted. It is mostly when she takes in a deep breath. So the patient had a CTA of the chest done today with no evidence of pulmonary embolism but scattered small partially consolidated lung parenchyma density consistent with inflammation or edema. Patient was tested positive for coronavirus. She is admitted for evaluation of chest pain, with cardiology consult. At the time of admission patient's vitals are temperature of 99.4, heart rate 90, respiratory 20, blood pressure 137/70 saturating at 95% on room air. She had an EKG done showing normal sinus rhythm. Labs showed less than 0.0 112 troponin with white count of 3.3, hemoglobin 13.7, platelets 165. D-dimer 0.61, sodium 138, potassium 4.5, chloride 107, bicarb 21. BUN 18 and creatinine of 0.95. Review of Systems REVIEW OF SYSTEMS: CONSTITUTIONAL: As per HPI HEENT: No recent visual problems or hearing problems. Denied any sore throat. CARDIOVASCULAR: As per HPI PULMONARY: As per HPI GASTROINTESTINAL: As per HPI NEUROLOGICAL: Mild headaches, no weakness, no numbness. HEMATOLOGICAL: Denies any bleeding or petechiae. GENITOURINARY: Denies any burning micturition, frequency, or urgency. MUSCULOSKELETAL/RHEUMATOLOGICAL: No joint issues ENDOCRINE: Denies any polyuria or polydipsia. The rest of the 14-point review of systems is negative. 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 bowel resection for obstruction, amalia cataracts, Past Anesthesia/Blood Transfusion Reactions: No Reported Reaction Past Psychological History: No Psychological Hx Reported Additional Psychological History / Comment(s): short term memory loss Smoking Status: Former smoker Past Alcohol Use History: Rare Additional Past Alcohol Use History / Comment(s): quit smoking 20 yrs ago, smoked for 20 yrs Past Drug Use History: None Reported - Past Family History Mother Family Medical History: Cancer, CVA/TIA, Pulmonary Embolus Additional Family Medical History / Comment(s): breast cancer Father Family Medical History: CVA/TIA, Myocardial Infarction ([place]) Additional Family Medical History / Comment(s): . Brother(s) Family Medical History: Congestive Heart Failure (CHF) Additional Family Medical History / Comment(s): CABG Medications and Allergies Home Medications Medication Instructions Recorded Confirmed Type Sucralfate [Carafate] 1 gram PO BID 05/10/17 09/18/20 History traZODone HCL 50 mg PO HS 02/11/19 09/18/20 History Gabapentin [Neurontin] 100 mg PO BID 09/18/20 09/18/20 History Lactobacillus Acidoph & Bulgar 1 pack PO TID 09/18/20 09/18/20 History [Lactinex] Ondansetron Odt [Zofran Odt] 4 mg PO Q6H PRN 09/18/20 09/18/20 History Allergies Allergy/AdvReac Type Severity Reaction Status Date / Time morphine Allergy Rash/Hives Verified 09/18/20 10:33 sulfamethoxazole Allergy ABD PAIN Verified 09/18/20 10:33 [From Bactrim] Physical Exam Vitals: Vital Signs Temp Pulse Pulse Resp BP BP Pulse Ox 09/18/20 10:09 97.8 F 79 16 136/79 96 09/18/20 09:31 98.5 F 76 18 146/85 97 09/18/20 07:07 97.8 F 73 22 151/88 97 09/18/20 04:53 99.4 F 91 20 137/70 95 Intake and Output 09/17/20 09/18/20 09/18/20 22:59 06:59 14:59 Other: Weight 82.554 kg 82.554 kg PHYSICAL EXAMINATION: GENERAL: The patient is alert and oriented x3, not in any acute distress. HEENT: Pupils are round and equally reacting to light. EOMI. No scleral icterus. No conjunctival pallor. CARDIOVASCULAR: S1 and S2 present. PULMONARY: Chest is clear to auscultation, no wheezing or crackles. ABDOMEN: Soft, nontender, nondistended, normoactive bowel sounds. No palpable organomegaly. MUSCULOSKELETAL: No joint swelling EXTREMITIES: No cyanosis, clubbing. No pedal edema NEUROLOGICAL: Gross neurological examination did not reveal any focal deficits. SKIN: No rashes. Results CBC & Chem 7: 09/19/20 06:10 09/19/20 06:10 Labs: Abnormal Lab Results - Last 24 Hours (Table) 09/18/20 09/18/20 09/18/20 Range/Units 05:55 05:55 05:55 WBC 3.3 L (3.8-10.6) k/uL Lymphocytes # 0.7 L (1.0-4.8) k/uL D-Dimer 0.61 H (<0.60) mg/L FEU Carbon Dioxide 21 L (22-30) mmol/L BUN 18 H (7-17) mg/dL Glucose 115 H (74-99) mg/dL Thrombosis Risk Factor Assmnt - Choose All That Apply Any of the Below Risk Factors Present?: Yes Each Factor Represents 1 point: Hx of IBD Other Risk Factors: Yes Each Risk Factor Represents 2 Points: Age 61-74 years Thrombosis Risk Factor Assessment Total Risk Factor Score: 3 Thrombosis Risk Factor Assessment Level: Moderate Risk Assessment and Plan Assessment: ASSESSMENT Covid pneumonia Chest pain-most likely pleuritic in nature Leukopenia with lymphopenia History of coronary artery disease Type 2 diabetes mellitus GERD Hypertension Hyperlipidemia Diabetic neuropathy CKD stage II Irritable bowel syndrome History of bowel resection for obstruction Peripheral vascular disease PLAN: Patient has chest pain most likely pleuritic in nature. Patient's troponins x3 have been negative. She will be started on Decadron 6 mg. Lovenox for DVT prophylaxis. Zinc and vitamin C supplements. Cardiology on board due to history of coronary artery disease. Patient has been restarted on her home medications. Further recommendations to follow depending on the progress of the patient.
[2020-09-19] MEDS: dexAMETHasone 2 MG TAB PO SCH ×2 (00:38→08:20)
[2020-09-19] MEDS: SODIUM CHLORIDE 0.9% 1,000 ML IV SCH ×2 (05:25→15:12)
[2020-09-19 07:10] LABS: Glucose,Whole Blood 117 mg/dL (75-99)
[2020-09-19] MEDS: SUCRALFATE 1 GM TAB PO SCH ×2 (08:20→20:00)
[2020-09-19] MEDS: ZINC SULFATE 220 MG CAP PO SCH (08:20)
[2020-09-19] MEDS: GABAPENTIN 100 MG CAP PO SCH ×2 (08:20→20:00)
[2020-09-19] MEDS: ENOXAPARIN 40 MG/0.4 ML SYRINGE SQ SCH (08:20)
[2020-09-19] MEDS: LACTOBACILLUS ACIDOPH & BULGAR 1 EACH PACKET PO SCH ×3 (08:20→20:00)
[2020-09-19] MEDS: ASCORBIC ACID 500 MG TAB PO SCH (08:20)
[2020-09-19 08:59] LABS: HCT 42.2 % (37.2-46.3); HGB 13.4 g/dL (12.0-15.0); MCH 31.6 pg (27.0-32.0); MCHC 31.8 g/dL (32.0-37.0); MCV 99.5 fL (80.0-97.0); Mean Platelet Volume 10.2 fL (9.5-12.2); Platelet Count 157 X 10*3/uL (140-440); RBC 4.24 X 10*6/uL (4.10-5.20); RDW 12.6 % (11.5-14.5); WBC 1.71 X 10*3/uL (4.50-10.00)
[2020-09-19 09:17] LABS: African American GFR (CKD) 78.3 (60.0-200.0); Albumin 3.9 g/dL (3.80-4.90); Albumin/Globulin Ratio 2.05 (1.60-3.17); Anion Gap 6.5 mmol/L (4.00-12.00); BUN/Creat Ratio 16.67 Ratio (12.00-20.00); Calcium 8.4 mg/dL (8.7-10.3); Carbon Dioxide 25.5 mmol/L (21.6-31.8); Globulin 1.9 g/dL (1.6-3.3); Magnesium 1.4 mg/dL (1.5-2.4); Non-African American GFR(CKD) 67.6 (60.0-200.0); Phosphorus 3.1 mg/dL (2.4-5.1); Potassium 5.4 mmol/L (3.5-5.5); Total Bilirubin 0.2 mg/dL (0.3-1.2); Total Protein 5.8 g/dL (6.2-8.2)
[2020-09-19 09:32] LABS: Basophils # (A) 0.01 X 10*3/uL (0.00-0.10); Basophils % (A) 0.6 %; Eosinophils # (A) 0.01 X 10*3/uL (0.04-0.35); Eosinophils % (A) 0.6 %; Lymphocytes # (A) 0.37 X 10*3/uL (0.90-5.00); Lymphocytes % (A) 21.6 %; Monocytes # (A) 0.06 X 10*3/uL (0.20-1.00); Monocytes % (A) 3.5 %; Neutrophils # (A) 1.26 X 10*3/uL (1.80-7.70); Neutrophils % (A) 73.7 %
[2020-09-19 11:22] LABS: Glucose,Whole Blood 217 mg/dL (75-99)
--- NOTE | 2020-09-19 14:04 | P.CRDCN ---
History of Present Illness Consult date: 09/19/20 History of present illness: The patient is a 65-year-old female with past medical history of coronary artery disease, diabetes mellitus, hypertension, chronic kidney disease, dyslipidemia, and peripheral vascular disease, who presents to the hospital with worsening chest discomfort. She was evaluated in the emergency room several days prior with fever, nausea, and diarrhea. CT of the abdomen at that time was unremarkable. She came back to the emergency room with chest pain, as well as nausea and dizziness. The pain is worse with deep breathing. DIAGNOSTICS: EKG shows sinus rhythm without ST or T-wave changes CTA of the chest shows no evidence of PE, however she does have small partially consolidative lung parenchyma parenchymal densities consistent with inflammation Blood pressure 133/84, respiratory rate 16, pulse rate 63, temperature 98.1F, SpO2 94% on room air WBC 1.71, hemoglobin 13.4, hematocrit 42.2, platelet 157, sodium 141, potassium 5.4, BUN 15, creatinine 0.9, magnesium 1.4, AST 81, ALT 80 PAST MEDICAL HISTORY: Coronary artery disease, diabetes, hypertension, chronic kidney disease, dyslipidemia, peripheral vascular disease PHYSICAL EXAMINATION: Thorough physical exam not completed due to Covid 19 FINAL ASSESSMENT AND PLAN: Covid 19 infection chest discomfort, ACS workup unremarkable, likely pleuritic in nature Coronary artery disease, 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 Plan of care has been reviewed and agreed upon by Dr Koch. 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 bowel resection for obstruction, amalia cataracts, Past Anesthesia/Blood Transfusion Reactions: No Reported Reaction Past Psychological History: No Psychological Hx Reported Additional Psychological History / Comment(s): short term memory loss Smoking Status: Former smoker Past Alcohol Use History: Rare Additional Past Alcohol Use History / Comment(s): quit smoking 20 yrs ago, smoked for 20 yrs Past Drug Use History: None Reported - Past Family History Mother Family Medical History: Cancer, CVA/TIA, Pulmonary Embolus Additional Family Medical History / Comment(s): breast cancer Father Family Medical History: CVA/TIA, Myocardial Infarction ([place]) Additional Family Medical History / Comment(s): . Brother(s) Family Medical History: Congestive Heart Failure (CHF) Additional Family Medical History / Comment(s): CABG Medications and Allergies Home Medications Medication Instructions Recorded Confirmed Type Sucralfate [Carafate] 1 gram PO BID 05/10/17 09/18/20 History traZODone HCL 50 mg PO HS 02/11/19 09/18/20 History Gabapentin [Neurontin] 100 mg PO BID 09/18/20 09/18/20 History Lactobacillus Acidoph & Bulgar 1 pack PO TID 09/18/20 09/18/20 History [Lactinex] Ondansetron Odt [Zofran Odt] 4 mg PO Q6H PRN 09/18/20 09/18/20 History Allergies Allergy/AdvReac Type Severity Reaction Status Date / Time morphine Allergy Rash/Hives Verified 09/18/20 10:33 sulfamethoxazole Allergy ABD PAIN Verified 09/18/20 10:33 [From Bactrim] Physical Exam Vitals: Vital Signs Temp Pulse Pulse Resp BP Pulse Ox 09/19/20 07:00 98.1 F 63 16 133/84 94 L 09/19/20 01:54 97.8 F 56 L 20 127/77 95 09/18/20 20:02 97.6 F 69 16 124/78 96 09/18/20 15:00 97.9 F 72 18 115/75 97 Intake and Output 09/18/20 09/19/20 09/19/20 22:59 06:59 14:59 Intake Total 240 1680 Balance 240 1680 Intake: Intake, IV Titration 1200 Amount Sodium Chloride 0.9% 1, 1200 000 ml @ 100 mls/hr IV . Q10H [facility] Rx#:[id number] Oral 240 480 Other: # Voids 1 2 # Bowel Movements 1 Results 09/19/20 06:10 09/19/20 06:10 Cardiac Enzymes 09/18/20 09/19/20 Range/Units 16:38 06:10 AST 81 H (13-35) U/L Troponin I <0.012 (0.000-0.034) ng/mL CBC 09/19/20 Range/Units 06:10 WBC 1.71 L (4.50-10.00) X 10*3/uL RBC 4.24 (4.10-5.20) X 10*6/uL Hgb 13.4 (12.0-15.0) g/dL Hct 42.2 (37.2-46.3) % Plt Count 157 (140-440) X 10*3/uL Comprehensive Metabolic Panel 09/19/20 Range/Units 06:10 Sodium 141 (135-145) mmol/L Potassium 5.4 (3.5-5.5) mmol/L Chloride 109 (96-109) mmol/L Carbon Dioxide 25.5 (21.6-31.8) mmol/L BUN 15.0 (9.0-27.0) mg/dL Creatinine 0.9 (0.6-1.5) mg/dL Glucose 143 H (70-110) mg/dL Calcium 8.4 L (8.7-10.3) mg/dL AST 81 H (13-35) U/L ALT 80 H (8-44) U/L Alkaline Phosphatase 140 H (41-126) U/L Total Protein 5.8 L (6.2-8.2) g/dL Albumin 3.90 (3.80-4.90) g/dL Current Medications Generic Name Dose Route Start Last Admin Trade Name Freq PRN Reason Stop Dose Admin Acetaminophen 650 mg 09/18/20 09:48 Acetaminophen Tab 325 Mg Tab PO Q6HR PRN Mild Pain or Fever > 100.5 Albuterol Sulfate 1 puff 09/18/20 09:48 Albuterol Hfa Inhaler INHALATION RT-QID PRN Shortness Of Breath Or Wheezing Ascorbic Acid 1,000 mg 03/28/21 09:00 09/19/20 08:20 Ascorbic Acid 500 Mg Tab PO 1,000 mg DAILY MARK Administration Dexamethasone 6 mg 09/19/20 00:05 09/19/20 08:20 Dexamethasone 2 Mg Tab PO 6 mg DAILY MARK Administration Enoxaparin Sodium 40 mg 09/19/20 09:00 09/19/20 08:20 Enoxaparin 40 Mg/0.4 Ml Syringe SQ 40 mg DAILY MARK Administration Gabapentin 100 mg 09/18/20 21:00 09/19/20 08:20 Gabapentin 100 Mg Cap PO 100 mg BID MARK Administration Hydromorphone HCl 1 mg 09/18/20 09:48 09/18/20 20:11 Hydromorphone 1 Mg/Ml 1 Ml Syringe IVP 1 mg Q3HR PRN Administration Severe Pain Sodium Chloride 1,000 mls @ 100 mls/hr 09/18/20 10:00 09/19/20 05:25 Saline 0.9% IV 100 mls/hr .Q10H MARK Administration Ibuprofen 400 mg 09/18/20 09:48 Ibuprofen 400 Mg Tab PO Q6HR PRN Mild Pain or Fever > 100.5 Lactobacillus Acidoph/Bulgaricus 1 each 09/18/20 16:00 09/19/20 08:20 Lactobacillus Acidoph & Bulgar 1 Each Packet PO 1 each TID MARK Administration Naloxone HCl 0.2 mg 09/18/20 09:48 Naloxone 0.4 Mg/Ml 1 Ml Vial IV Q2M PRN Opioid Reversal Ondansetron HCl 4 mg 09/18/20 09:48 Ondansetron 4 Mg/2 Ml Vial IVP Q8HR PRN Nausea And Vomiting Sucralfate 1 gm 09/18/20 21:00 09/19/20 08:20 Sucralfate 1 Gm Tab PO 1 gm BID MARK Administration Trazodone HCl 50 mg 09/18/20 21:00 09/18/20 20:12 Trazodone Hcl 50 Mg Tab PO 50 mg HS MARK Administration Zinc Sulfate 220 mg 09/19/20 09:00 09/19/20 08:20 Zinc Sulfate 220 Mg Cap PO 220 mg DAILY MARK Administration Intake and Output 09/18/20 09/19/20 09/19/20 22:59 06:59 14:59 Intake Total 240 1680 Balance 240 1680 Intake: Intake, IV Titration 1200 Amount Sodium Chloride 0.9% 1, 1200 000 ml @ 100 mls/hr IV . Q10H [facility] Rx#:[id number] Oral 240 480 Other: # Voids 1 2 # Bowel Movements 1 09/19/20 06:10 09/19/20 06:10
[2020-09-19] MEDS: IBUPROFEN 400 MG TAB PO PRN ×2 (15:16→20:01)
--- NOTE | 2020-09-19 15:28 | P.CNPUL ---
History of Present Illness Consult date: 09/19/20 Reason for consult: chest pain History of present illness: This is a 65-year-old female patient presented emergency department with symptoms of chest pain as well as nausea fever and some diarrhea. She was in the emergency department. On 09/16/2020 and she was diagnosed having COVID 19 infection. She was given the monoclonal antibody, BAM, and she was discharged home. She came back with symptoms of cough and some chest pain. She was seen by cardiology and the chest pain is atypical in nature at this point in time. The chest x-ray was negative and CT angiogram showed no evidence of any pulmonary embolism and there is few scattered partially consolidative densities in the lungs bilaterally indicative of an underlying mild or minimal type of colon 19 related pneumonia. Patient is resting comfortably in bed for now. She is afebrile. No altered mentation. Her GI symptoms have subsided at this point in time. Looking at her blood work, normal cardiac enzymes, normal electrolytes, LFTs are showing some mild elevation consistent with viral-induced transaminitis, lymphocyte count is 0.3 and the white cell count is on 1.7 and t he platelet count is at 157 all related to fluid 19 infection. She does have a mild component of pancytopenia accordingly. CAT scan of the abdomen was unremarkable Review of Systems Constitutional: Reports fatigue, Reports weakness Eyes: denies as per HPI, denies blurred vision, denies bulging eye, denies decreased vision, denies diplopia, denies discharge, denies dry eye, denies irritation, denies itching, denies pain, denies photophobia, denies loss of peripheral vision, denies loss of vision, denies tunnel vision/blind spots Ears: deny: decreased hearing, ear discharge, earache, tinnitus Ears, nose, mouth and throat: Denies headache, Denies sore throat Breasts: absent: as per HPI, change in shape, gynecomastia, masses, nipple discharge, pain, skin changes, swelling Cardiovascular: Reports chest pain Respiratory: Reports cough Gastrointestinal: Reports as per HPI, Reports nausea Genitourinary: Reports as per HPI Menstruation: Reports as per HPI Musculoskeletal: Reports as per HPI Musculoskeletal: absent: ankle pain, ankle stiffness, ankle swelling, as per HPI, elbow pain, elbow stiffness, elbow swelling, foot pain, foot stiffness, foot swelling, hand pain, hand stiffness, hand swelling, hip pain, hip stiffness, hip swelling, knee pain, knee stiffness, knee swelling, shoulder pain, shoulder stiffness, shoulder swelling, wrist pain, wrist stiffness, wrist swelling Integumentary: Reports as per HPI Neurological: Reports as per HPI Psychiatric: Reports as per HPI Endocrine: Reports as per HPI Hematologic/Lymphatic: Reports as per HPI Allergic/Immunologic: Reports as per HPI Past Medical History Past Medical History: Coronary Artery Disease (CAD), Diabetes Mellitus, Eye Disorder, GERD/Reflux, Hyperlipidemia, Memory Impairment, Osteoarthritis (OA), Renal Disease, Vascular Disorder Additional Past Medical History / Comment(s): hiatal hernia, NIDDM type II-diet control, neuropathy in bilateral legs, hx chronic kidney disease stage 3, PVD, 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 bowel resection for obstruction, amalia cataracts, Past Anesthesia/Blood Transfusion Reactions: No Reported Reaction Past Psychological History: No Psychological Hx Reported Additional Psychological History / Comment(s): short term memory loss Smoking Status: Former smoker Past Alcohol Use History: Rare Additional Past Alcohol Use History / Comment(s): quit smoking 20 yrs ago, smoked for 20 yrs Past Drug Use History: None Reported - Past Family History Mother Family Medical History: Cancer, CVA/TIA, Pulmonary Embolus Additional Family Medical History / Comment(s): breast cancer Father Family Medical History: CVA/TIA, Myocardial Infarction ([place]) Additional Family Medical History / Comment(s): . Brother(s) Family Medical History: Congestive Heart Failure (CHF) Additional Family Medical History / Comment(s): CABG Medications and Allergies Home Medications Medication Instructions Recorded Confirmed Type Sucralfate [Carafate] 1 gram PO BID 05/10/17 09/18/20 History traZODone HCL 50 mg PO HS 02/11/19 09/18/20 History Gabapentin [Neurontin] 100 mg PO BID 09/18/20 09/18/20 History Lactobacillus Acidoph & Bulgar 1 pack PO TID 09/18/20 09/18/20 History [Lactinex] Ondansetron Odt [Zofran Odt] 4 mg PO Q6H PRN 09/18/20 09/18/20 History Allergies Allergy/AdvReac Type Severity Reaction Status Date / Time morphine Allergy Rash/Hives Verified 09/18/20 10:33 sulfamethoxazole Allergy ABD PAIN Verified 09/18/20 10:33 [From Bactrim] Physical Exam Vitals: Vital Signs Temp Pulse Resp BP Pulse Ox 09/19/20 07:00 98.1 F 63 16 133/84 94 L 09/19/20 01:54 97.8 F 56 L 20 127/77 95 09/18/20 20:02 97.6 F 69 16 124/78 96 Intake and Output 09/19/20 09/19/20 09/19/20 06:59 14:59 22:59 Intake Total 1680 Balance 1680 Intake: Intake, IV Titration 1200 Amount Sodium Chloride 0.9% 1, 1200 000 ml @ 100 mls/hr IV . Q10H [facility] Rx#:[id number] Oral 480 Other: # Voids 2 3 Results - Laboratory Findings CBC and BMP: 09/19/20 06:10 09/19/20 06:10 ABG WBC 1.71 X 10*3/uL (4.50-10.00) L 09/19/20 06:10 RBC 4.24 X 10*6/uL (4.10-5.20) 09/19/20 06:10 Hgb 13.4 g/dL (12.0-15.0) 09/19/20 06:10 Hct 42.2 % (37.2-46.3) 09/19/20 06:10 MCV 99.5 fL (80.0-97.0) H 09/19/20 06:10 MCH 31.6 pg (27.0-32.0) 09/19/20 06:10 MCHC 31.8 g/dL (32.0-37.0) L 09/19/20 06:10 RDW 12.6 % (11.5-14.5) 09/19/20 06:10 Plt Count 157 X 10*3/uL (140-440) 09/19/20 06:10 Plt Count Comment Adequate 09/19/20 06:10 MPV 10.2 fL (9.5-12.2) 09/19/20 06:10 Immature Gran % (Auto) 0 % 09/19/20 06:10 Absolute Nucleated RBC 0 X 10*3/uL (0.00-0.00) 09/19/20 06:10 Neutrophils % 73.7 % 09/19/20 06:10 Lymphocytes % 21.6 % 09/19/20 06:10 Monocytes % 3.5 % 09/19/20 06:10 Eosinophils % 0.6 % 09/19/20 06:10 Basophils % 0.6 % 09/19/20 06:10 Immature Gran # 0 X 10*3/uL (0.00-0.04) 09/19/20 06:10 Neutrophils # 1.26 X 10*3/uL (1.80-7.70) L 09/19/20 06:10 Lymphocytes # 0.37 X 10*3/uL (0.90-5.00) L 09/19/20 06:10 Monocytes # 0.06 X 10*3/uL (0.20-1.00) L 09/19/20 06:10 Eosinophils # 0.01 X 10*3/uL (0.04-0.35) L 09/19/20 06:10 Basophils # 0.01 X 10*3/uL (0.00-0.10) 09/19/20 06:10 NRBC/100 WBC Diff 0 /100 WBCS (0.0-0.0) 09/19/20 06:10 RBC Morphology NORMAL 09/19/20 06:10 PT 9.7 sec (9.0-12.0) 09/18/20 05:55 INR 0.9 (<1.2) 09/18/20 05:55 APTT 24.7 sec (22.0-30.0) 09/18/20 05:55 D-Dimer 0.61 mg/L FEU (<0.60) H 09/18/20 05:55 Sodium 141 mmol/L (135-145) 09/19/20 06:10 Potassium 5.4 mmol/L (3.5-5.5) 09/19/20 06:10 Chloride 109 mmol/L (96-109) 09/19/20 06:10 Carbon Dioxide 25.5 mmol/L (21.6-31.8) 09/19/20 06:10 Anion Gap 6.50 mmol/L (4.00-12.00) 09/19/20 06:10 BUN 15.0 mg/dL (9.0-27.0) 09/19/20 06:10 Creatinine 0.9 mg/dL (0.6-1.5) 09/19/20 06:10 Est GFR (CKD-EPI)AfAm 78.3 (60.0-200.0) 09/19/20 06:10 Est GFR (CKD-EPI)NonAf 67.6 (60.0-200.0) 09/19/20 06:10 BUN/Creatinine Ratio 16.67 Ratio (12.00-20.00) 09/19/20 06:10 Glucose 143 mg/dL (70-110) H 09/19/20 06:10 POC Glucose (mg/dL) 217 mg/dL (75-99) H 09/19/20 11:20 POC Glu Senior Account Director TANISHA Marley [place] 09/19/20 11:20 Plasma Lactic Acid [place] 0.9 mmol/L (0.7-2.0) 09/18/20 05:55 Calcium 8.4 mg/dL (8.7-10.3) L 09/19/20 06:10 Phosphorus 3.1 mg/dL (2.4-5.1) 09/19/20 06:10 Magnesium 1.4 mg/dL (1.5-2.4) L 09/19/20 06:10 Total Bilirubin 0.2 mg/dL (0.3-1.2) L 09/19/20 06:10 AST 81 U/L (13-35) H 09/19/20 06:10 ALT 80 U/L (8-44) H 09/19/20 06:10 Alkaline Phosphatase 140 U/L (41-126) H 09/19/20 06:10 Troponin I <0.012 ng/mL (0.000-0.034) 09/18/20 16:38 NT-Pro-B Natriuret Pep 496 pg/mL 09/18/20 05:55 Total Protein 5.8 g/dL (6.2-8.2) L 09/19/20 06:10 Albumin 3.90 g/dL (3.80-4.90) 09/19/20 06:10 Globulin 1.9 g/dL (1.6-3.3) 09/19/20 06:10 Albumin/Globulin Ratio 2.05 g/dL (1.60-3.17) 09/19/20 06:10 PT/INR, D-dimer PT 9.7 sec (9.0-12.0) 09/18/20 05:55 INR 0.9 (<1.2) 09/18/20 05:55 D-Dimer 0.61 mg/L FEU (<0.60) H 09/18/20 05:55 Abnormal lab findings: Abnormal Labs 09/18/20 09/18/20 09/18/20 05:55 05:55 05:55 WBC 3.3 L MCV MCHC Neutrophils # Lymphocytes # 0.7 L Monocytes # Eosinophils # D-Dimer 0.61 H Carbon Dioxide 21 L BUN 18 H Glucose 115 H POC Glucose (mg/dL) Calcium Magnesium Total Bilirubin AST ALT Alkaline Phosphatase Total Protein 09/18/20 09/18/20 09/19/20 17:21 20:30 06:10 WBC 1.71 L MCV 99.5 H MCHC 31.8 L Neutrophils # 1.26 L Lymphocytes # 0.37 L Monocytes # 0.06 L Eosinophils # 0.01 L D-Dimer Carbon Dioxide BUN Glucose POC Glucose (mg/dL) 101 H 155 H Calcium Magnesium Total Bilirubin AST ALT Alkaline Phosphatase Total Protein 09/19/20 09/19/20 09/19/20 06:10 07:06 11:20 WBC MCV MCHC Neutrophils # Lymphocytes # Monocytes # Eosinophils # D-Dimer Carbon Dioxide BUN Glucose 143 H POC Glucose (mg/dL) 117 H 217 H Calcium 8.4 L Magnesium 1.4 L Total Bilirubin 0.2 L AST 81 H ALT 80 H Alkaline Phosphatase 140 H Total Protein 5.8 L Assessment and Plan Plan: 1 acute COVID related pneumonia. Implement that he changes on the CAT scan is minimal at this point in time. The patient has a very mild component of pneumonia. She is not hypoxemic. She is having cough and secondary chest wall pain. The chest pain is noncardiac in nature. Cardiology already evaluated this patient. The patient is on Decadron. She is not a candidate for Remdesivir and the patient already has received multiple antibiotics. 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 Use hyperglycemia Recommend total of 10 days of Decadron 6 mg by mouth daily Not candidate for Remdesivir The patient has taken multiple antibodies and problems is when she is having milder symptoms despite her comorbidities Cardiology regarding the chest pain, the pain is atypical related to cough Discharge home with the next 24-48 hours
--- NOTE | 2020-09-19 16:36 | P.PN ---
Subjective Progress Note Date: 09/19/20 Principal diagnosis: COVID Pneumonia Ms. Zamorano is a 65-year-old female with a past medical history of coronary artery disease, type 2 diabetes mellitus, hypertension, hyperlipidemia, memory impairment, osteoarthritis, IBS, CKD stage III, peripheral vascular disease c oming into the hospital with a chief complaint of chest pain. Patient states that she was in the ER couple of days back for fever nausea, abdominal pain with the diarrhea. She was given the monoclonal antibody, BAM, and she was discharged home. She had CAT scan of the abdomen and pelvis that was showing no bowel obstruction but a regular pulmonary density. She was sent home and persistent fevers along with nausea and dizziness. Patient's chest pain also persisted. It is mostly when she takes in a deep breath. So the patient had a CTA of the chest done today with no evidence of pulmonary embolism but scattered small partially consolidated lung parenchyma density consistent with inflammation or edema. Patient was tested positive for coronavirus. She is admitted for evaluation of chest pain, with cardiology consult. At the time of admission patient's vitals are temperature of 99.4, heart rate 90, respiratory 20, blood pressure 137/70 saturating at 95% on room air. She had an EKG done showing normal sinus rhythm. Labs showed less than 0.0 112 troponin with white count of 3.3, hemoglobin 13.7, platelets 165. D-dimer 0.61, sodium 138, potassium 4.5, chloride 107, bicarb 21. BUN 18 and creatinine of 0.95. On 09/19/2020 - patient was seen and examined at bedside. She still complains of substernal chest pain. She denies having any palpitations, no difficulty in breathing. She still has nausea, but denies having any abdominal pain or diarrhea. Patient denies having any fevers chills or rigors. No dysuria or hematuria. On reviewing her vitals T-max of 98.3, heart rate 67, respiratory rate 16, blood pressure 1 56 x 83, saturating at 97% on room air. On reviewing labs white count 1.7, hemoglobin 13.4, platelets 157. Sodium 141, potassium 5 .4, chloride 109, bicarbonate 25, BUN 15, creatinine 0.9. AST 81, 8080, and 40. Active Medications Acetaminophen (Acetaminophen Tab 325 Mg Tab) 650 mg PO Q6HR PRN PRN Reason: Mild Pain or Fever > 100.5 Albuterol Sulfate (Albuterol Hfa Inhaler) 1 puff INHALATION RT-QID PRN PRN Reason: Shortness Of Breath Or Wheezing Ascorbic Acid (Ascorbic Acid 500 Mg Tab) 1,000 mg PO DAILY [facility] Last Admin: 09/19/20 08:20 Dose: 1,000 mg Documented by: Aspirin (Aspirin 81 Mg) 81 mg PO DAILY [facility] Atorvastatin Calcium (Atorvastatin 20 Mg Tab) 20 mg PO HS [facility] Dexamethasone (Dexamethasone 2 Mg Tab) 6 mg PO DAILY [facility] Last Admin: 09/19/20 08:20 Dose: 6 mg Documented by: Enoxaparin Sodium (Enoxaparin 40 Mg/0.4 Ml Syringe) 40 mg SQ DAILY [facility] Last Admin: 09/19/20 08:20 Dose: 40 mg Documented by: Gabapentin (Gabapentin 100 Mg Cap) 100 mg PO BID [facility] Last Admin: 09/19/20 08:20 Dose: 100 mg Documented by: Hydromorphone HCl (Hydromorphone 1 Mg/Ml 1 Ml Syringe) 1 mg IVP Q3HR PRN PRN Reason: Severe Pain Last Admin: 09/18/20 20:11 Dose: 1 mg Documented by: Sodium Chloride (Saline 0.9%) 1,000 mls @ 100 mls/hr IV .Q10H [facility] Last Admin: 09/19/20 15:12 Dose: 100 mls/hr Documented by: Ibuprofen (Ibuprofen 400 Mg Tab) 400 mg PO Q6HR PRN PRN Reason: Mild Pain or Fever > 100.5 Last Admin: 09/19/20 15:16 Dose: 400 mg Documented by: Lactobacillus Acidoph/Bulgaricus (Lactobacillus Acidoph & Bulgar 1 Each Packet) 1 each PO TID [facility] Last Admin: 09/19/20 15:16 Dose: 1 each Documented by: Naloxone HCl (Naloxone 0.4 Mg/Ml 1 Ml Vial) 0.2 mg IV Q2M PRN PRN Reason: Opioid Reversal Ondansetron HCl (Ondansetron 4 Mg/2 Ml Vial) 4 mg IVP Q8HR PRN PRN Reason: Nausea And Vomiting Sucralfate (Sucralfate 1 Gm Tab) 1 gm PO BID [facility] Last Admin: 09/19/20 08:20 Dose: 1 gm Documented by: Trazodone HCl (Trazodone Hcl 50 Mg Tab) 50 mg PO HS [facility] Last Admin: 09/18/20 20:12 Dose: 50 mg Documented by: Zinc Sulfate (Zinc Sulfate 220 Mg Cap) 220 mg PO DAILY [facility] Last Admin: 09/19/20 08:20 Dose: 220 mg Documented by: Objective - Vital Signs Vital signs: Vital Signs Temp 98.1 F 09/19/20 07:00 Pulse 63 09/19/20 07:00 Resp 16 09/19/20 07:00 BP 133/84 09/19/20 07:00 Pulse Ox 94 L 09/19/20 07:00 Intake & Output 09/18/20 09/19/20 09/19/20 18:59 06:59 18:59 Intake Total 480 1920 Balance 480 1920 Weight 82.554 kg Intake: Intake, IV Titration 1200 Amount Sodium Chloride 0.9% 1, 1200 000 ml @ 100 mls/hr IV . Q10H [facility] Rx#:[id number] Oral 480 720 Other: # Voids 2 # Bowel Movements 1 - Exam PHYSICAL EXAMINATION: GENERAL: The patient is alert and oriented x3, not in any acute distress. HEENT: Pupils are round and equally reacting to light. EOMI. No scleral icterus. No conjunctival pallor. CARDIOVASCULAR: S1 and S2 present. PULMONARY: Chest is clear to auscultation, no wheezing or crackles. ABDOMEN: Soft, nontender, nondistended, normoactive bowel sounds. No palpable organomegaly. MUSCULOSKELETAL: No joint swelling EXTREMITIES: No cyanosis, clubbing. No pedal edema NEUROLOGICAL: Gross neurological examination did not reveal any focal deficits. SKIN: No rashes. - Labs CBC & Chem 7: 09/19/20 06:10 09/19/20 06:10 Labs: Abnormal Lab Results - Last 24 Hours (Table) 09/18/20 09/18/20 09/19/20 Range/Units 17:21 20:30 06:10 WBC 1.71 L (4.50-10.00) X 10*3/uL MCV 99.5 H (80.0-97.0) fL MCHC 31.8 L (32.0-37.0) g/dL Neutrophils # 1.26 L (1.80-7.70) X 10*3/uL Lymphocytes # 0.37 L (0.90-5.00) X 10*3/uL Monocytes # 0.06 L (0.20-1.00) X 10*3/uL Eosinophils # 0.01 L (0.04-0.35) X 10*3/uL Glucose (70-110) mg/dL POC Glucose (mg/dL) 101 H 155 H (75-99) mg/dL Calcium (8.7-10.3) mg/dL Magnesium (1.5-2.4) mg/dL Total Bilirubin (0.3-1.2) mg/dL AST (13-35) U/L ALT (8-44) U/L Alkaline Phosphatase (41-126) U/L Total Protein (6.2-8.2) g/dL 09/19/20 09/19/20 09/19/20 Range/Units 06:10 07:06 11:20 WBC (4.50-10.00) X 10*3/uL MCV (80.0-97.0) fL MCHC (32.0-37.0) g/dL Neutrophils # (1.80-7.70) X 10*3/uL Lymphocytes # (0.90-5.00) X 10*3/uL Monocytes # (0.20-1.00) X 10*3/uL Eosinophils # (0.04-0.35) X 10*3/uL Glucose 143 H (70-110) mg/dL POC Glucose (mg/dL) 117 H 217 H (75-99) mg/dL Calcium 8.4 L (8.7-10.3) mg/dL Magnesium 1.4 L (1.5-2.4) mg/dL Total Bilirubin 0.2 L (0.3-1.2) mg/dL AST 81 H (13-35) U/L ALT 80 H (8-44) U/L Alkaline Phosphatase 140 H (41-126) U/L Total Protein 5.8 L (6.2-8.2) g/dL Assessment and Plan Assessment: ASSESSMENT Covid pneumonia Chest pain-most likely pleuritic in nature Mild transaminitis Leukopenia with lymphopenia History of coronary artery disease Type 2 diabetes mellitus GERD Hypertension Hyperlipidemia Diabetic neuropathy CKD stage II Irritable bowel syndrome History of bowel resection for obstruction Peripheral vascular disease PLAN: Patient has chest pain most likely pleuritic in nature. Patient's troponins x3 have been negative. She will be started on Decadron 6 mg. Lovenox for DVT prophylaxis. Zinc and vitamin C supplements. Cardiology on board evaluated the patient and started on low-dose aspirin and atorvastatin 20 mg. Patient has been restarted on her home medications. Further recommendations to follow depending on the progress of the patient.
[2020-09-19 17:07] LABS: Glucose,Whole Blood 190 mg/dL (75-99)
[2020-09-19 18:14] LABS: Chol/HDL Ratio 3.65; LDL Cholesterol,Calculated 120.6 mg/dL (0.0-131.0); VLDL Calculation 17.4 mg/dL (5.00-40.00)
[2020-09-19] MEDS: traZODone HCL 50 MG TAB PO SCH (20:00)
[2020-09-19 20:53] LABS: Glucose,Whole Blood 190 mg/dL (75-99)
[2020-09-19] MEDS ORDERED: ATORVASTATIN 20 MG TAB PO SCH (21:00)
[2020-09-20] MEDS: SODIUM CHLORIDE 0.9% 1,000 ML IV SCH (03:11)
[2020-09-20 07:32] LABS: Glucose,Whole Blood 105 mg/dL (75-99)
[2020-09-20 07:52] VITALS: RESP 16
[2020-09-20] MEDS: dexAMETHasone 2 MG TAB PO SCH (08:48)
[2020-09-20] MEDS: IBUPROFEN 400 MG TAB PO PRN (08:48)
[2020-09-20] MEDS: ASCORBIC ACID 500 MG TAB PO SCH (08:48)
[2020-09-20] MEDS: SUCRALFATE 1 GM TAB PO SCH (08:49)
[2020-09-20] MEDS: LACTOBACILLUS ACIDOPH & BULGAR 1 EACH PACKET PO SCH ×2 (08:49→16:22)
[2020-09-20] MEDS: ENOXAPARIN 40 MG/0.4 ML SYRINGE SQ SCH (08:49)
[2020-09-20] MEDS: GABAPENTIN 100 MG CAP PO SCH (08:49)
[2020-09-20] MEDS: ZINC SULFATE 220 MG CAP PO SCH (08:49)
[2020-09-20] MEDS ORDERED: ASPIRIN 81 MG PO SCH (09:00)
[2020-09-20 10:27] LABS: Basophils # (A) 0.01 X 10*3/uL (0.00-0.10); Basophils % (A) 0.2 %; Eosinophils # (A) 0.01 X 10*3/uL (0.04-0.35); Eosinophils % (A) 0.2 %; HCT 38.9 % (37.2-46.3); HGB 12.4 g/dL (12.0-15.0); Lymphocytes # (A) 1.61 X 10*3/uL (0.90-5.00); Lymphocytes % (A) 36.4 %; MCH 31.5 pg (27.0-32.0); MCHC 31.9 g/dL (32.0-37.0); MCV 98.7 fL (80.0-97.0); Mean Platelet Volume 10.1 fL (9.5-12.2); Monocytes # (A) 0.26 X 10*3/uL (0.20-1.00); Monocytes % (A) 5.9 %; Neutrophils # (A) 2.52 X 10*3/uL (1.80-7.70); Neutrophils % (A) 57.1 %; Platelet Count 148 X 10*3/uL (140-440); RBC 3.94 X 10*6/uL (4.10-5.20); RDW 12.5 % (11.5-14.5); WBC 4.42 X 10*3/uL (4.50-10.00)
[2020-09-20] MEDS ORDERED: CHOLECALCIFEROL 25 MCG (1000 IU) TABLET PO SCH (11:00)
[2020-09-20 11:06] LABS: African American GFR (CKD) >90 (>60 ml/min/1.73 sqM); Anion Gap 6 mmol/L; Blood Urea Nitrogen 16 mg/dL (7-17); Calcium 8.6 mg/dL (8.4-10.2); Carbon Dioxide 19 mmol/L (22-30); Chloride 116 mmol/L (98-107); Glucose 96 mg/dL (74-99); Non-African American GFR(CKD) 84 (>60 ml/min/1.73 sqM); Sodium 141 mmol/L (137-145)
[2020-09-20 11:12] LABS: Magnesium 1.4 mg/dL (1.6-2.3); Potassium 4.8 mmol/L (3.5-5.1)
[2020-09-20 12:01] LABS: Glucose,Whole Blood 159 mg/dL (75-99)
[2020-09-20] MEDS ORDERED: LOSARTAN 25 MG TAB PO SCH (12:30)
[2020-09-20] MEDS ORDERED: METOPROLOL TARTRATE 25 MG TAB PO SCH (12:30)
[2020-09-20] MEDS ORDERED: Magnesium Replacement Protocol 1 EACH MISC MISCELLANE PRN (13:21)
[2020-09-20] MEDS: MAGNESIUM SULFATE-D5W PMX 1 GM in DEXTROSE/WATER 1 100ML.BAG IVPB SCH ×3 (14:09→16:41)
--- NOTE | 2020-09-20 14:27 | P.PN ---
Subjective The patient is a 65-year-old female with past medical history of coronary artery disease, diabetes mellitus, hypertension, chronic kidney disease, dyslipidemia, and peripheral vascular disease, who presents to the hospital with worsening chest discomfort. She was evaluated in the emergency room several days prior with fever, nausea, and diarrhea. CT of the abdomen at that time was unremarkable. She came back to the emergency room with chest pain, as well as nausea and dizziness. The pain is worse with deep breathing. EKG shows sinus rhythm without ST or T-wave changes CTA of the chest shows no evidence of PE, however she does have small partially consolidative lung parenchyma parenchymal densities consistent with inflammation. Blood pressure 133/84, respiratory rate 16, pulse rate 63, temperature 98.1F, SpO2 94% on room air. Troponin negative x 3, WBC 1.71, hemoglobin 13.4, hematocrit 42.2, platelet 157, sodium 141, potassium 5.4, BUN 15, creatinine 0.9, magnesium 1.4, AST 81, ALT 80 09/20/2020: Patient seen and examined at bedside, in no acute distress. BP 131/73 HR 60s, afebrile, maintaining oxygen saturations on room air. Currently being maintained on atorvastatin 20mg daily, aspirin 81mg daily. PHYSICAL EXAMINATION: Thorough physical exam not completed due to Covid 19 FINAL ASSESSMENT AND PLAN: Covid 19 infection Chest discomfort, ACS workup unremarkable, likely pleuritic in nature Coronary artery disease, known [employer] Hypertension, well controlled Dyslipidemia, not on statin therapy PLAN: -Will continue atorvastatin 20mg daily, aspirin 81mg daily, -With history of diabetes and hypertension patient should be on ACEI/ARB and beta marisel. Will start losartan 25mg daily and metoprolol tartrate 25mg daily. -Patient to follow up in Office with Dr. Hickey in 3-4 weeks. The patient has been seen and evaluated. Plan of care has been reviewed and agreed upon by Dr Hickey Objective - Vital Signs Vital signs: Vital Signs Temp 98.3 F 09/19/20 15:00 Pulse 67 09/19/20 15:00 Resp 16 09/19/20 15:00 BP 156/83 09/19/20 15:00 Pulse Ox 97 09/19/20 15:00 Intake & Output 09/18/20 09/19/20 09/19/20 18:59 06:59 18:59 Intake Total 480 1920 Balance 480 1920 Weight 82.554 kg Intake: Intake, IV Titration 1200 Amount Sodium Chloride 0.9% 1, 1200 000 ml @ 100 mls/hr IV . Q10H [facility] Rx#:[id number] Oral 480 720 Other: # Voids 2 3 # Bowel Movements 1 - Labs CBC & Chem 7: 09/20/20 06:53 09/20/20 06:53 Labs: Abnormal Lab Results - Last 24 Hours (Table) 09/18/20 09/18/20 09/19/20 Range/Units 17:21 20:30 06:10 WBC 1.71 L (4.50-10.00) X 10*3/uL MCV 99.5 H (80.0-97.0) fL MCHC 31.8 L (32.0-37.0) g/dL Neutrophils # 1.26 L (1.80-7.70) X 10*3/uL Lymphocytes # 0.37 L (0.90-5.00) X 10*3/uL Monocytes # 0.06 L (0.20-1.00) X 10*3/uL Eosinophils # 0.01 L (0.04-0.35) X 10*3/uL Glucose (70-110) mg/dL POC Glucose (mg/dL) 101 H 155 H (75-99) mg/dL Calcium (8.7-10.3) mg/dL Magnesium (1.5-2.4) mg/dL Total Bilirubin (0.3-1.2) mg/dL AST (13-35) U/L ALT (8-44) U/L Alkaline Phosphatase (41-126) U/L Total Protein (6.2-8.2) g/dL 09/19/20 09/19/20 09/19/20 Range/Units 06:10 07:06 11:20 WBC (4.50-10.00) X 10*3/uL MCV (80.0-97.0) fL MCHC (32.0-37.0) g/dL Neutrophils # (1.80-7.70) X 10*3/uL Lymphocytes # (0.90-5.00) X 10*3/uL Monocytes # (0.20-1.00) X 10*3/uL Eosinophils # (0.04-0.35) X 10*3/uL Glucose 143 H (70-110) mg/dL POC Glucose (mg/dL) 117 H 217 H (75-99) mg/dL Calcium 8.4 L (8.7-10.3) mg/dL Magnesium 1.4 L (1.5-2.4) mg/dL Total Bilirubin 0.2 L (0.3-1.2) mg/dL AST 81 H (13-35) U/L ALT 80 H (8-44) U/L Alkaline Phosphatase 140 H (41-126) U/L Total Protein 5.8 L (6.2-8.2) g/dL
[2020-09-20 14:57] VITALS: BP 152/80; PULSE 93; TEMP 97.1
--- NOTE | 2020-09-20 16:39 | P.DS ---
Providers Date of admission: 09/18/20 09:48 Expected date of discharge: 09/20/20 Attending physician: Dmitry Lewis MD Consults: 09/18/20 09:49 Consult Physician Routine Consulting Provider: Kaia Acosta Consult Reason/Comments: cp Do you want consulting provider notified?: Yes 09/19/20 00:01 Consult Physician Routine Consulting Provider: Yudi Hadley Consult Reason/Comments: COVID Pneumonia Do you want consulting provider notified?: Yes Primary care physician: Karen Snowden Hospital Course: Final Diagnoses: Acute Covid-19 Pneumonia with significant cough Chest pain secondary to the above, pleuritic-noncardiac as per cardiology Diabetes mellitus type 2 Diabetic neuropathy Chronic kidney disease, stage III CAD Hypertension Hyperlipidemia Peripheral vascular disease Gastroesophageal reflux disease Irritable bowel syndrome Osteoarthritis Obesity Hypomagnesium Hospital course: This a 65-year-old female admitted with acute Covid 19 pneumo kyree with significant cough and multiple other medical issues. Evaluated /treated by both cardiology and pulmonary. Patient was not a candidate for Remdesivir. Maintained on COVID regimen with significant clinical improvement. Lungs are clear, maintaining O2 sats of 98% on room air. Cleared by both cardiology and pulmonary for discharge. Patient will be discharged home today in a stable condition with guarded prognosis, after magnesium supplemented. The impression and plan of care has been dictated as directed. : I performed a history and examination of this patient, discussed the same with the dictator. I agree with the dictator's note ,documented as a scribe. Any additional findings or plans will be noted. Patient Condition at Discharge: Stable Plan - Discharge Summary Discharge Rx Participant: No New Discharge Prescriptions: New Ascorbic Acid [Vitamin C] 1,000 mg PO DAILY tab Cholecalciferol [Vitamin D3 (25 Mcg = 1000 Iu)] 50 mcg PO DAILY #30 tab Aspirin 81 mg PO DAILY 60 Days #60 chew dexAMETHasone [Hexadrol] See Taper PO DAILY #18 tab Zinc Sulfate [Orazinc] 220 mg PO DAILY cap Losartan [Cozaar] 25 mg PO DAILY 30 Days #30 tab Metoprolol Tartrate [Lopressor] 25 mg PO DAILY 30 Days #30 tab Continue Sucralfate [Carafate] 1 gram PO BID traZODone HCL 50 mg PO HS Gabapentin [Neurontin] 100 mg PO BID Lactobacillus Acidoph & Bulgar [Lactinex] 1 pack PO TID Ondansetron Odt [Zofran ODT] 4 mg PO Q6H PRN PRN Reason: Nausea Discharge Medication List Sucralfate [Carafate] 1 gram PO BID 05/10/17 [History] traZODone HCL 50 mg PO HS 02/11/19 [History] Gabapentin [Neurontin] 100 mg PO BID 09/18/20 [History] Lactobacillus Acidoph & Bulgar [Lactinex] 1 pack PO TID 09/18/20 [History] Ondansetron Odt [Zofran ODT] 4 mg PO Q6H PRN 09/18/20 [History] Ascorbic Acid [Vitamin C] 1,000 mg PO DAILY tab 09/20/20 [Rx] Aspirin 81 mg PO DAILY 60 Days #60 chew 09/20/20 [Rx] Cholecalciferol [Vitamin D3 (25 Mcg = 1000 Iu)] 50 mcg PO DAILY #30 tab 09/20/20 [Rx] Losartan [Cozaar] 25 mg PO DAILY 30 Days #30 tab 09/20/20 [Rx] Metoprolol Tartrate [Lopressor] 25 mg PO DAILY 30 Days #30 tab 09/20/20 [Rx] Zinc Sulfate [Orazinc] 220 mg PO DAILY cap 09/20/20 [Rx] dexAMETHasone [Hexadrol] See Taper PO DAILY #18 tab 09/20/20 [Rx] Follow up Appointment(s)/Referral(s): Katina Hickey MD [STAFF PHYSICIAN] - 10/05/20 2:00 pm (Appointment will be at the [facility], 2nd floor [address].) Dmitry Lewis MD [STAFF PHYSICIAN] - 1 Week Activity/Diet/Wound Care/Special Instructions: pending magnesium level,bmp
== END 2020-09-20 18:26 | disposition home or self-care (01) ==
LOC: EC 04:44 → 6NMEDSUR 09:48
PROVIDERS: ADMIT Family Medicine; ATTEND Family Medicine
DX: U07.1 COVID-19 (principal); J12.82 Pneumonia due to coronavirus disease 2019; R07.9 Chest pain, unspecified; J06.9 Acute upper respiratory infection, unspecified; I25.10 Atherosclerotic heart disease of native coronary artery without angina pectoris; R42 Dizziness and giddiness; R11.0 Nausea; J02.9 Acute pharyngitis, unspecified; K21.9 Gastro-esophageal reflux disease without esophagitis; E78.5 Hyperlipidemia, unspecified; M19.90 Unspecified osteoarthritis, unspecified site; R41.3 Other amnesia; E11.40 Type 2 diabetes mellitus with diabetic neuropathy, unspecified; E11.51 Type 2 diabetes mellitus with diabetic peripheral angiopathy without gangrene; E11.22 Type 2 diabetes mellitus with diabetic chronic kidney disease; I12.9 Hypertensive chronic kidney disease with stage 1 through stage 4 chronic kidney disease, or unspecified chronic kidney disease; N18.30 Chronic kidney disease, stage 3 unspecified; K58.9 Irritable bowel syndrome, unspecified; N28.9 Disorder of kidney and ureter, unspecified; G62.9 Polyneuropathy, unspecified; R26.81 Unsteadiness on feet; D61.818 Other pancytopenia; R74.01 Elevation of levels of liver transaminase levels; Q89.9 Congenital malformation, unspecified; E66.9 Obesity, unspecified; Z68.36 Body mass index [BMI] 36.0-36.9, adult; E83.42 Hypomagnesemia; Z79.899 Other long term (current) drug therapy; Z79.82 Long term (current) use of aspirin; Z79.84 Long term (current) use of oral hypoglycemic drugs; Z88.5 Allergy status to narcotic agent; Z88.2 Allergy status to sulfonamides; Z90.49 Acquired absence of other specified parts of digestive tract; Z87.891 Personal history of nicotine dependence; Z80.3 Family history of malignant neoplasm of breast; Z82.49 Family history of ischemic heart disease and other diseases of the circulatory system; Z82.3 Family history of stroke
CPT/HCPCS: 96376; 96361 ×2; 96365; 96366; 96372 ×2; 96375; 99285; 36415; 93005; 85379; 83880; 80061; 80053 ×2; 80048; 83605; 83735 ×2; 84100; 84484; 85025 ×3; 85610; 85730; 71046; 71275; G0378 ×3; J1650 ×2; J1170; J3475; J8540 ×2; J1885; Q9967

== ENCOUNTER → 2021-05-26 | Outpatient (CLI) | payer BC ==
[2021-05-26 19:02] LABS: Chol/HDL Ratio 5.09 Ratio; LDL Cholesterol,Calculated 182.4 mg/dL (0.0-131.0)
[2021-05-26 19:08] LABS: ALT 18 U/L (8-44); AST 25 U/L (13-35); African American GFR (CKD) 60.4 (60.0-200.0); Albumin 4.2 g/dL (3.8-4.9); Albumin/Globulin Ratio 1.93 (1.60-3.17); Alkaline Phosphatase 98 U/L (41-126); BUN/Creat Ratio 17.12 Ratio (12.00-20.00); Calcium 8.9 mg/dL (8.7-10.3); Carbon Dioxide 20.8 mmol/L (20.0-27.5); Chloride 104 mmol/L (96-109); Globulin 2.2 g/dL (1.6-3.3); Glucose 126 mg/dL (70-110); Non-African American GFR(CKD) 52.1 (60.0-200.0); Potassium 5.1 mmol/L (3.5-5.5); Sodium 138 mmol/L (135-145); Total Protein 6.3 g/dL (6.2-8.2)
[2021-05-26 19:45] LABS: HCT 41.2 % (37.2-46.3); HGB 13.2 g/dL (12.0-15.0); MCH 31.6 pg (27.0-32.0); MCV 98.6 fL (80.0-97.0); Mean Platelet Volume 10.4 fL (9.5-12.2); Platelet Count 231 X 10*3/uL (140-440); RBC 4.18 X 10*6/uL (4.10-5.20); RDW 12.4 % (11.5-14.5); WBC 4.53 X 10*3/uL (4.50-10.00)
== END | disposition home or self-care (01) ==
LOC: LABWHC1 12:27
PROVIDERS: ATTEND Family Medicine
DX: I10 Essential (primary) hypertension (principal); E11.9 Type 2 diabetes mellitus without complications; M89.49 Other hypertrophic osteoarthropathy, multiple sites; M79.643 Pain in unspecified hand; Z90.49 Acquired absence of other specified parts of digestive tract
CPT/HCPCS: 36415; 80053; 80061; 83036; 84443; 85027; 86038

== ENCOUNTER 2021-07-02 19:04 | Emergency (ER) | payer MEDICARE, BC ==
[2021-07-02 19:21] VITALS: RESP 18; TEMP 98
[2021-07-02] MEDS ORDERED: diphenhydrAMINE 50 MG/ML 1 ML VIAL IVP STA (20:54)
[2021-07-02] MEDS ORDERED: KETOROLAC 15 MG/ML 1 ML VIAL IVP STA (20:54)
[2021-07-02] MEDS ORDERED: ONDANSETRON 4 MG/2 ML VIAL IVP STA (20:54)
[2021-07-02] MEDS ORDERED: SODIUM CHLORIDE 0.9% 1,000 ML IV STA (20:54)
--- NOTE | 2021-07-02 21:34 | XR ---
EXAMINATION TYPE: XR KUB DATE OF EXAM: 07/02/2021 COMPARISON: 09/16/2020 HISTORY: Abdominal pain TECHNIQUE: Single view FINDINGS: There are clips from cholecystectomy. Bowel gas pattern is normal. There is no sign of inte stinal obstruction or pneumoperitoneum. Fecal pattern is normal. Lung bases are clear. There are no c alcifications over the kidneys. IMPRESSION: Nonacute abdomen. No adverse change.
[2021-07-02 21:45] LABS: Basophils % (A) 0 %; Eosinophils % (A) 1 %; HCT 46.2 % (34.0-46.0); HGB 14.7 gm/dL (11.4-16.0); Lymphocytes # (A) 0.9 k/uL (1.0-4.8); Lymphocytes % (A) 15 %; MCH 32.3 pg (25.0-35.0); MCHC 31.9 g/dL (31.0-37.0); MCV 101.2 fL (80.0-100.0); Mean Platelet Volume 7.7; Monocytes # (A) 0.2 k/uL (0-1.0); Monocytes % (A) 3 %; Neutrophils # (A) 4.7 k/uL (1.3-7.7); Neutrophils % (A) 81 %; Platelet Count 212 k/uL (150-450); RBC 4.56 m/uL (3.80-5.40); RDW 12.5 % (11.5-15.5); WBC 5.8 k/uL (3.8-10.6)
[2021-07-02 22:02] LABS: Albumin 4.3 g/dL (3.5-5.0); Calcium 9.3 mg/dL (8.4-10.2); Potassium 5.2 mmol/L (3.5-5.1); Total Bilirubin 0.7 mg/dL (0.2-1.3); Total Protein 7.1 g/dL (6.3-8.2)
[2021-07-02 22:30] LABS: INR 0.9 (<1.2); Prothrombin Time 10.2 sec (9.0-12.0)
[2021-07-02 22:35] LABS: Partial Thromboplastin Time 21.6 sec (22.0-30.0)
--- NOTE | 2021-07-02 22:44 | CT ---
EXAMINATION TYPE: CT abdomen pelvis wo con DATE OF EXAM: 07/02/2021 COMPARISON: 09/17/2020 HISTORY: Abdominal pain, acute, non-localized. Covid + Hx renal disease CT DLP: 902.9 mGycm Automated exposure control for dose reduction was used. Images obtained from the diaphragm to the floor the pelvis with no contrast. FINDINGS: Lung bases are clear of consolidation. There is no pleural effusion. Heart is normal. There are is an apparent cholecystectomy. The bile ducts are not dilated. There are calcified splenic granulomata. T here is no evidence of pancreatic mass. There is epigastric ventral hernia contains fat. Hernia measu res 4 x 2.5 cm. There is no adrenal mass. Kidneys have normal size. There is no hydronephrosis. There is 3 cm cortica l cyst posterior left kidney. Ureters are not dilated. There is no retroperitoneal adenopathy. Bladde r distends smoothly. There is no inguinal hernia. There is no free fluid in the pelvis. There is no mesenteric edema. There is no ascites or free air. There is no bowel obstruction. The lumbar vertebrae have normal alignment. Disc spaces are fairly normal. There is no compression fr acture. There is vacuum disc at L4-5. Bony pelvis is intact. The hip joints are intact. There is previous bowel surgery and apparent right hemicolectomy. There is umbilical hernia contains fat. There is small ventral hernia above the umbilicus containing transverse colon and measures 3 x 1 .5 cm. No bowel obstruction. IMPRESSION: Previous surgery. Epigastric ventral hernia without much change. Small ventral hernia near the umbili cus is increased compared to old exam. No bowel obstruction.
--- NOTE | 2021-07-02 23:18 | ED ---
General Adult HPI - General Chief complaint: Abdominal Pain Stated complaint: Back Pain,Cough,Constipation Time Seen by Provider: 07/02/21 20:35 Source: patient, family, RN notes reviewed, old records reviewed Mode of arrival: ambulatory - History of Present Illness Initial comments: Patient is a 66-year-old female with past medical history remarkable for prior CAD, diabetes, previous abdominal hernias, previous bowel obstruction status post surgery presents emergency Department complaining of abdominal pain, diarrhea. She is concerned that she may have a bowel obstruction. She is complaining of intermittent variable bilateral lower quadrant pain, with some radiation towards the lower back. She was diagnosed with COVID-19 last week and received monoclonal antibody infusion at that time. She states that last time she had this pain she had a fall obstruction. She is having active bowel movements. She does have a normal bowel movement 2 days ago, and had diarrhea earlier today. She is concerned for possible bowel obstruction. Denies chest pain, shortness of breath, cough, fevers. His no other acute complaints at this time. Was not vaccinated for COVID-19. Presents emergency department seeking further relief. I evaluated the patient when she was placed in a room. - Related Data Home Medications Medication Instructions Recorded Confirmed Sucralfate [Carafate] 1 gram PO BID 05/10/17 09/18/20 traZODone HCL 50 mg PO HS 02/11/19 09/18/20 Gabapentin [Neurontin] 100 mg PO BID 09/18/20 09/18/20 Lactobacillus Acidoph & [place] 1 pack PO TID 09/18/20 09/18/20 [Lactinex] Ondansetron Odt [Zofran ODT] 4 mg PO Q6H PRN 09/18/20 09/18/20 Previous Rx's Medication Instructions Recorded Ascorbic Acid [Vitamin C] 1,000 mg PO DAILY tab 09/20/20 Aspirin 81 mg PO DAILY 60 Days #60 chew 09/20/20 Cholecalciferol [Vitamin D3 (25 50 mcg PO DAILY #30 tab 09/20/20 Mcg = 1000 Iu)] Losartan [Cozaar] 25 mg PO DAILY 30 Days #30 tab 09/20/20 Metoprolol Tartrate [Lopressor] 25 mg PO DAILY 30 Days #30 tab 09/20/20 Zinc Sulfate [Orazinc] 220 mg PO DAILY cap 09/20/20 dexAMETHasone ORAL [Hexadrol] See Taper PO DAILY #18 tab 09/20/20 Dicyclomine [Bentyl] 10 mg PO TID 7 Days #21 capsule 07/02/21 Lidocaine 5% Patch [Lidoderm 5% 1 patch TOPICAL DAILY 7 Days #7 07/02/21 Patch] patch Allergies Allergy/AdvReac Type Severity Reaction Status Date / Time morphine Allergy Rash/Hives Verified 07/02/21 19:21 sulfamethoxazole Allergy ABD PAIN Verified 07/02/21 19:21 [From Bactrim] Review of Systems ROS Statement: Those systems with pertinent positive or pertinent negative responses have been documented in the HPI. Review of Systems: CONST: Denies fever EYES: Denies blurry vision ENT: Denies nasal congestion C/V: Denies Chest pain RESP: Denies shortness of breath GI: Endorses abdominal pain : Denies dysuria SKIN: Denies rash. MSK: Denies joint pain. NEURO: Denies headache ROS Other: All systems not noted in ROS Statement are negative. 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 bowel resection for obstruction, amalia cataracts, Past Anesthesia/Blood Transfusion Reactions: No Reported Reaction Past Psychological History: No Psychological Hx Reported Smoking Status: Former smoker Past Alcohol Use History: Rare Past Drug Use History: None Reported - Past Family History Mother Family Medical History: Cancer, CVA/TIA, Pulmonary Embolus Additional Family Medical History / Comment(s): breast cancer Father Family Medical History: CVA/TIA, Myocardial Infarction ([place]) Additional Family Medical History / Comment(s): . Brother(s) Family Medical History: Congestive Heart Failure (CHF) Additional Family Medical History / Comment(s): CABG General Exam - General Exam Comments Initial Comments: Constitutional: Blood pressure was default value, pulse was default value, respirations were default value, pulse oximetry was default value, temperature was default value. General: Appears in no acute distress. HEAD: Normal with no signs of head trauma. EYES: PERRLA, EOMI, conjunctiva normal, no discharge. ENT: Hearing grossly intact, normal oropharynx. RESPIRATORY: Clear breath sounds bilaterally. No wheezes, rales, or rhonchi. C/V: Regular rate and rhythm. S1 and S2 auscultated, no edema, peripheral pulses 2+ and intact throughout ABD: Abdomen is soft, nondistended. Patient is mildly tender to palpation in the bilateral lower quadrants. No CVA tenderness to percussion. No guarding. No rebound tenderness. No peritoneal signs. EXT: Normal range of motion, no obvious deformity SKIN: No rashes or lesions observed on exposed skin. NEURO: Alert and oriented 4. Course Vital Signs 07/02/21 19:16 Temperature 98.0 F Pulse Rate 93 Respiratory 18 Rate Blood Pressure 139/78 O2 Sat by Pulse 97 Oximetry Medical Decision Making - Medical Decision Making Based on the patient's presentation and physical exam, I'm concerned for acute intra-abdominal process for the patient. Possibility of old structuring, or symptoms secondary to her acute COVID-19 infection. Can also not rule out the possibility of atypical presentation for ACS. Therefore we will obtain a cardiac workup as well as abdominal laboratory studies. Patient will require CT imaging of the abdomen as well as an abdominal x-ray. She declines many analgesic medications at this time but will be given IV Toradol, Benadryl, Zofran and 1 L fluid bolus. She was in agreement this plan. Patient's EKG shows no signs of acute ischemia. Laboratory studies are remarkable for a mild hyperkalemia 5.2 without any sign of EKG changes. Patient has a mildly elevated BUN/creatinine in the setting of CK D. Troponin is negative.Patient's abdominal x-ray was unremarkable. Abdominal CT revealed prior surgery signs. There are ventral hernias that are old. No signs of bowel obstruction. We discussed at length her negative imaging. Urinalysis is still pending at this time. I explained that based on her labs, there is nothing acute per the hospital. She was in agreement. I do believe it is safe for her to be discharged home after urinalysis is obtained. They were in agreement this plan. I will prescribe private them Bentyl as well as lidocaine patches for pain. She'll follow-up with Dr. Lewis this week. Urinalysis is negative for acute infection. I did the patient on these findings. I will provide the patient with a prescription for Bentyl, Lidocaine patches. I instructed the patient to follow up with their PCP in the next 3 days. I explained that the patient should return to the emergency department if they experience any worsening symptoms. Strict return precautions were discussed with the patient. The patient expressed understanding of these instructions. I answered all questions that the patient had. The patient was discharged home in fair condition with their prescriptions and follow up information. - Lab Data Result diagrams: 07/02/21 21:31 07/02/21 21:31 Lab Results 07/02/21 07/02/21 07/02/21 Range/Units 21:31 21:31 21:31 WBC 5.8 (3.8-10.6) k/uL RBC 4.56 (3.80-5.40) m/uL Hgb 14.7 (11.4-16.0) gm/dL Hct 46.2 H (34.0-46.0) % MCV 101.2 H (80.0-100.0) fL MCH 32.3 (25.0-35.0) pg MCHC 31.9 (31.0-37.0) g/dL RDW 12.5 (11.5-15.5) % Plt Count 212 (150-450) k/uL MPV 7.7 Neutrophils % 81 % Lymphocytes % 15 % Monocytes % 3 % Eosinophils % 1 % Basophils % 0 % Neutrophils # 4.7 (1.3-7.7) k/uL Lymphocytes # 0.9 L (1.0-4.8) k/uL Monocytes # 0.2 (0-1.0) k/uL Eosinophils # 0.0 (0-0.7) k/uL Basophils # 0.0 (0-0.2) k/uL PT 10.2 (9.0-12.0) sec INR 0.9 (<1.2) APTT 21.6 L (22.0-30.0) sec Sodium 138 (137-145) mmol/L Potassium 5.2 H (3.5-5.1) mmol/L Chloride 107 (98-107) mmol/L Carbon Dioxide 24 (22-30) mmol/L Anion Gap 7 mmol/L BUN 31 H (7-17) mg/dL Creatinine 1.37 H (0.52-1.04) mg/dL Est GFR (CKD-EPI)AfAm 47 (>60 ml/min/1.73 sqM) Est GFR (CKD-EPI)NonAf 41 (>60 ml/min/1.73 sqM) Glucose 197 H (74-99) mg/dL Plasma Lactic Acid [place] (0.7-2.0) mmol/L Calcium 9.3 (8.4-10.2) mg/dL Total Bilirubin 0.7 (0.2-1.3) mg/dL AST 47 H (14-36) U/L ALT 26 (4-34) U/L Alkaline Phosphatase 81 (38-126) U/L Troponin I (0.000-0.034) ng/mL Total Protein 7.1 (6.3-8.2) g/dL Albumin 4.3 (3.5-5.0) g/dL Amylase 52 (30-110) U/L Lipase 133 (23-300) U/L Urine Color Urine Appearance (Clear) Urine pH (5.0-8.0) Ur Specific [place] (1.001-1.035) Urine Protein (Negative) Urine Glucose (UA) (Negative) Urine Ketones (Negative) Urine Blood (Negative) Urine Nitrite (Negative) Urine Bilirubin (Negative) Urine Urobilinogen (<2.0) mg/dL Ur Leukocyte Esterase (Negative) 07/02/21 07/02/21 07/02/21 Range/Units 21:31 21:31 22:57 WBC (3.8-10.6) k/uL RBC (3.80-5.40) m/uL Hgb (11.4-16.0) gm/dL Hct (34.0-46.0) % MCV (80.0-100.0) fL MCH (25.0-35.0) pg MCHC (31.0-37.0) g/dL RDW (11.5-15.5) % Plt Count (150-450) k/uL MPV Neutrophils % % Lymphocytes % % Monocytes % % Eosinophils % % Basophils % % Neutrophils # (1.3-7.7) k/uL Lymphocytes # (1.0-4.8) k/uL Monocytes # (0-1.0) k/uL Eosinophils # (0-0.7) k/uL Basophils # (0-0.2) k/uL PT (9.0-12.0) sec INR (<1.2) APTT (22.0-30.0) sec Sodium (137-145) mmol/L Potassium (3.5-5.1) mmol/L Chloride (98-107) mmol/L Carbon Dioxide (22-30) mmol/L Anion Gap mmol/L BUN (7-17) mg/dL Creatinine (0.52-1.04) mg/dL Est GFR (CKD-EPI)AfAm (>60 ml/min/1.73 sqM) Est GFR (CKD-EPI)NonAf (>60 ml/min/1.73 sqM) Glucose (74-99) mg/dL Plasma Lactic Acid [place] 1.4 (0.7-2.0) mmol/L Calcium (8.4-10.2) mg/dL Total Bilirubin (0.2-1.3) mg/dL AST (14-36) U/L ALT (4-34) U/L Alkaline Phosphatase (38-126) U/L Troponin I <0.012 (0.000-0.034) ng/mL Total Protein (6.3-8.2) g/dL Albumin (3.5-5.0) g/dL Amylase (30-110) U/L Lipase (23-300) U/L Urine Color Yellow Urine Appearance Clear (Clear) Urine pH 6.0 (5.0-8.0) Ur Specific [place] 1.013 (1.001-1.035) Urine Protein Negative (Negative) Urine Glucose (UA) Negative (Negative) Urine Ketones Negative (Negative) Urine Blood Negative (Negative) Urine Nitrite Negative (Negative) Urine Bilirubin Negative (Negative) Urine Urobilinogen <2.0 (<2.0) mg/dL Ur Leukocyte Esterase Negative (Negative) - EKG Data -: EKG Interpreted by Me EKG Comments: 12-lead Electrocardiogram Interpretation Note EKG was reviewed and interpreted by myself. 12-lead ECG performed at 2115 is interpreted by me as revealing normal sinus rhythm at a rate of 62 beats per minute. [place] is normal. DE interval is 166 ms, QRS duration is 88 ms, QTc is 403 ms.. There were no ST or T wave abnormalities to suggest myocardial ischemia or injury. R wave progression across the precordium was satisfactory. By my interpretation this EKG is non-diagnostic for acute ischemia. Disposition Clinical Impression: Diarrhea, COVID-19 virus infection, Abdominal pain of unknown etiology, Dehydration, CKD (chronic kidney disease) Disposition: HOME SELF-CARE Condition: Fair Instructions (If sedation given, give patient instructions): Abdominal Pain (ED), Coronavirus Disease 2019 (COVID-19) Additional Instructions: follow up with PCP in next 2-3 days. Return if any worsening symptoms. Prescriptions: Dicyclomine [Bentyl] 10 mg PO TID 7 Days #21 capsule Lidocaine 5% Patch [Lidoderm 5% Patch] 1 patch TOPICAL DAILY 7 Days #7 patch Is patient prescribed a controlled substance at d/c from ED?: No Referrals: Dmitry Lewis MD [Primary Care Provider] - 1-2 days
[2021-07-02 23:48] LABS: Appearance,Urine Clear (Clear); Bilirubin,Urine Negative (Negative); Blood,Urine Negative (Negative); Color,Urine Yellow; Glucose,Urine (UA) Negative (Negative); Ketones,Urine Negative (Negative); Leukocyte Esterase,Urine Negative (Negative); Nitrite,Urine Negative (Negative); Protein,Urine Negative (Negative); Specific Gravity,Urine 1.013 (1.001-1.035); Urobilinogen,Urine <2.0 mg/dL (<2.0)
[2021-07-03 00:09] VITALS: BP 139/80; PULSE 89
== END 2021-07-03 00:08 | disposition home or self-care (01) ==
LOC: EC 19:04
DX: U07.1 COVID-19 (principal); R19.7 Diarrhea, unspecified; E86.0 Dehydration; E11.22 Type 2 diabetes mellitus with diabetic chronic kidney disease; N18.30 Chronic kidney disease, stage 3 unspecified; I25.10 Atherosclerotic heart disease of native coronary artery without angina pectoris; K21.9 Gastro-esophageal reflux disease without esophagitis; E78.5 Hyperlipidemia, unspecified; M19.90 Unspecified osteoarthritis, unspecified site; Z79.82 Long term (current) use of aspirin; Z88.2 Allergy status to sulfonamides; Z88.5 Allergy status to narcotic agent; Z90.49 Acquired absence of other specified parts of digestive tract; Z87.891 Personal history of nicotine dependence
CPT/HCPCS: 99284; 96374; 96375 ×2; 96361; 36415; 80053; 82150; 83605; 83690; 84484; 85025; 85610; 85730; 81003; 74018; 74176; J1200; J2405; J1885

== ENCOUNTER 2021-07-04 09:11 | Inpatient (IN) | payer MEDICARE, BC ==
--- NOTE | 2021-07-04 10:10 | XR ---
Abdomen HISTORY: Constipation Frontal abdomen correlated to prior KUB, CT abdomen 07/02/2021 Surgical clips are present in the right upper quadrant. Lung bases are clear. No evident bowel obstru ction or pneumoperitoneum. There is a spinal curvature, degenerative disc changes present in the visu alized spine. IMPRESSION: No acute abnormality
[2021-07-04] MEDS ORDERED: DICYCLOMINE 10 MG/ML 2 ML AMP IM STA (10:23)
--- NOTE | 2021-07-04 10:30 | ED ---
General Adult HPI - General Chief complaint: Recheck/Abnormal Lab/Rx Stated complaint: constipation & nausea Time Seen by Provider: 07/04/21 09:23 Source: patient, family, RN notes reviewed Mode of arrival: ambulatory Limitations: no limitations - History of Present Illness Initial comments: Patient is a pleasant [age]-year-old female presenting to the emergency Department with abdominal cramping and constipation. Onset of symptoms was around 4 days ago. Patient does have nausea, no vomiting. Patient feels she would feel better if she could vomit. Patient has been somewhat constipated. Patient has had some mild watery stools. Patient does have cramping in her abdomen as well as fullness. Patient did test positive for COVID-19 infection 9 days ago. - Related Data Home Medications Medication Instructions Recorded Confirmed Gabapentin [Neurontin] 100 mg PO BID 09/18/20 07/04/21 Diclofenac Sodium Gel [Voltaren 4 gm TOPICAL QID PRN 07/04/21 07/04/21 Gel] Loperamide HCl [Imodium A-D] 2 mg PO DAILY PRN 07/04/21 07/04/21 Meloxicam [Mobic] 7.5 mg PO DAILY PRN 07/04/21 07/04/21 Metoprolol Succinate (ER) [Toprol 25 mg PO DAILY 07/04/21 07/04/21 Xl] Omeprazole [PriLOSEC] 40 mg PO DAILY 07/04/21 07/04/21 Topiramate [Topamax] 50 mg PO HS 07/04/21 07/04/21 methylPREDNISolone [Medrol Dose See Taper PO DAILY 07/04/21 07/04/21 Pack] traZODone HCL [Desyrel] 100 mg PO HS 07/04/21 07/04/21 Previous Rx's Medication Instructions Recorded Aspirin 81 mg PO DAILY 60 Days #60 chew 09/20/20 Losartan [Cozaar] 25 mg PO DAILY 30 Days #30 tab 09/20/20 Dicyclomine [Bentyl] 10 mg PO TID 7 Days #21 capsule 07/02/21 Allergies Allergy/AdvReac Type Severity Reaction Status Date / Time morphine Allergy Rash/Hives Verified 07/04/21 09:50 sulfamethoxazole Allergy ABD PAIN Verified 07/04/21 09:50 [From Bactrim] Review of Systems ROS Statement: Those systems with pertinent positive or pertinent negative responses have been documented in the HPI. ROS Other: All systems not noted in ROS Statement are negative. Constitutional: Denies: fever Eyes: Denies: eye pain ENT: Denies: ear pain Respiratory: Denies: cough, dyspnea Cardiovascular: Denies: chest pain Endocrine: Denies: fatigue Gastrointestinal: Reports: as per HPI, nausea. 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 bowel resection for obstruction, amalia cataracts, Past Anesthesia/Blood Transfusion Reactions: No Reported Reaction Past Psychological History: No Psychological Hx Reported Smoking Status: Former smoker Past Alcohol Use History: Rare Past Drug Use History: None Reported - Past Family History Mother Family Medical History: Cancer, CVA/TIA, Pulmonary Embolus Additional Family Medical History / Comment(s): breast cancer Father Family Medical History: CVA/TIA, Myocardial Infarction ([place]) Additional Family Medical History / Comment(s): . Brother(s) Family Medical History: Congestive Heart Failure (CHF) Additional Family Medical History / Comment(s): CABG General Exam Limitations: no limitations General appearance: alert, in no apparent distress Head exam: Present: normocephalic Eye exam: Present: normal appearance Neck exam: Present: normal inspection Respiratory exam: Present: normal lung sounds bilaterally Cardiovascular Exam: Present: regular rate, normal rhythm GI/Abdominal exam: Present: soft, tenderness (Mild diffuse), normal bowel sounds. Absent: distended, guarding, rebound, rigid, pulsatile mass Rectal exam: Present: normal inspection. Absent: fecal impaction Extremities exam: Present: normal inspection Neurological exam: Present: alert Psychiatric exam: Present: normal affect, normal mood Skin exam: Present: normal color Course Vital Signs 07/04/21 09:15 Temperature 97.9 F Pulse Rate 82 Respiratory 20 Rate Blood Pressure 146/82 O2 Sat by Pulse 99 Oximetry - Reevaluation(s) Reevaluation #1: 07/04/21 14:27 Patient had enema with improvement. However symptoms are worsening and patient is having increased pain. Patient again states symptoms are similar to her previous bowel obstruction. Medical Decision Making - Medical Decision Making Patient was again reevaluated and starting having worsening symptoms and again worried about follow-up instruction. Patient does have moderate mid abdominal tenderness. Case was discussed with Dr. Chavez who will admit his patient with consult with Dr. Rangel who previously seen this patient. H will have full computed tomography scan with oral prep. Disposition Clinical Impression: Abdominal pain Disposition: ADMITTED IP TO THIS HOSP Is patient prescribed a controlled substance at d/c from ED?: No Referrals: Dmitry Lewis MD [Primary Care Provider] - 1-2 days Decision Time: 15:01
[2021-07-04] MEDS ORDERED: PANTOPRAZOLE 40 MG/10 ML VIAL IVP STA (14:25)
[2021-07-04] MEDS ORDERED: SODIUM CHLORIDE 0.9% 1,000 ML IV STA (14:25)
[2021-07-04] MEDS ORDERED: HYDROmorphone 1 MG/ML 1 ML SYRINGE IVP STA (14:26)
[2021-07-04] MEDS ORDERED: IOPAMIDOL CONTRAST (ORAL USE) VIAL PO PRN (15:07)
[2021-07-04] MEDS ORDERED: NALOXONE 0.4 MG/ML 1 ML VIAL IV PRN (15:07)
[2021-07-04] MEDS ORDERED: ONDANSETRON 4 MG/2 ML VIAL IVP PRN (15:07)
[2021-07-04 15:13] LABS: Basophils % (A) 1 %; Eosinophils # (A) 0.1 k/uL (0-0.7); Eosinophils % (A) 1 %; HCT 45.4 % (34.0-46.0); HGB 14.4 gm/dL (11.4-16.0); Lymphocytes # (A) 1.4 k/uL (1.0-4.8); Lymphocytes % (A) 18 %; MCH 32.1 pg (25.0-35.0); MCHC 31.6 g/dL (31.0-37.0); MCV 101.3 fL (80.0-100.0); Macrocytosis Slight; Mean Platelet Volume 7.3; Monocytes # (A) 0.3 k/uL (0-1.0); Monocytes % (A) 4 %; Neutrophils # (A) 5.8 k/uL (1.3-7.7); Neutrophils % (A) 75 %; Platelet Count 246 k/uL (150-450); RBC 4.48 m/uL (3.80-5.40); RDW 13.1 % (11.5-15.5); WBC 7.8 k/uL (3.8-10.6)
[2021-07-04 15:24] LABS: Albumin 4.3 g/dL (3.5-5.0); Calcium 9.4 mg/dL (8.4-10.2); Total Bilirubin 0.7 mg/dL (0.2-1.3); Total Protein 7.2 g/dL (6.3-8.2)
[2021-07-04 15:38] LABS: Partial Thromboplastin Time 20.8 sec (22.0-30.0); Prothrombin Time 10.7 sec (9.0-12.0)
--- NOTE | 2021-07-04 18:06 | CT ---
EXAMINATION TYPE: CT abdomen pelvis wo con DATE OF EXAM: 07/04/2021 COMPARISON: 07/02/2021 HISTORY: abdominal pain, rule out obstrustion CT DLP: 1015 mGycm Automated exposure control for dose reduction was used. TECHNIQUE: Helical acquisition of images was performed from the lung bases through the pelvis. FINDINGS: LUNG BASES: No significant abnormality is appreciated. LIVER/GB: No acute abnormality is appreciated. Cholecystectomy seen. PANCREAS: No significant abnormality is seen. SPLEEN: No significant abnormality is seen. ADRENALS: No significant abnormality is seen. KIDNEYS: No acute abnormality is seen. Unchanged 2.5 cm simple appearing left lower pole renal cyst. FREE AIR: No free air is visualized RETROPERITONEAL ADENOPATHY: None visualized REPRODUCTIVE ORGANS: No significant abnormality is seen URINARY BLADDER: No significant abnormality is seen. PELVIC ADENOPATHY: None visualized. OSSEOUS STRUCTURES: No significant abnormality is seen. BOWEL: Small fat-containing periumbilical and epigastric hernias. No bowel obstruction. No free flui d. Post surgical changes involving the gastroesophageal junction noted. OTHER: Moderate atherosclerotic disease. IMPRESSION: NO ACUTE ABNORMALITY OF BOWEL OBSTRUCTION. Unchanged small fat-containing ventral hernias and prior post surgical changes as above.
[2021-07-04] MEDS: SODIUM CHLORIDE 0.9% 1,000 ML IV SCH ×2 (18:50→23:30)
[2021-07-04] MEDS: TOPIRAMATE 25 MG TAB PO SCH (23:25)
[2021-07-04] MEDS: traZODone HCL 100 MG TAB PO SCH (23:25)
[2021-07-04] MEDS: HYDROmorphone 1 MG/ML 1 ML SYRINGE IVP PRN (23:26)
[2021-07-05] MEDS: HYDROmorphone 1 MG/ML 1 ML SYRINGE IVP PRN ×2 (04:08→13:30)
[2021-07-05] MEDS: SODIUM CHLORIDE 0.9% 1,000 ML IV SCH ×3 (05:21→21:41)
[2021-07-05] MEDS: PANTOPRAZOLE 40 MG/10 ML VIAL IV SCH (10:28)
[2021-07-05] MEDS: GABAPENTIN 100 MG CAP PO SCH ×2 (10:29→21:41)
[2021-07-05] MEDS: DICYCLOMINE 10 MG CAP PO SCH ×3 (10:29→21:41)
[2021-07-05] MEDS: METOPROLOL SUCCINATE (ER) 25 MG TAB.ER.24H PO SCH (10:29)
[2021-07-05] MEDS: ZINC SULFATE 220 MG CAP PO SCH (10:29)
[2021-07-05] MEDS: CHOLECALCIFEROL 25 MCG (1000 IU) TABLET PO SCH (10:29)
[2021-07-05] MEDS: ASCORBIC ACID 500 MG TAB PO SCH ×2 (10:29→21:41)
[2021-07-05] MEDS: ASPIRIN 81 MG PO SCH (10:29)
[2021-07-05] MEDS: LOSARTAN 25 MG TAB PO SCH (10:30)
[2021-07-05 10:43] LABS: Appearance,Urine Cloudy (Clear); Bacteria,Urine Occasional /hpf; Bilirubin,Urine Negative (Negative); Blood,Urine Negative (Negative); Color,Urine Yellow; Glucose,Urine (UA) Negative (Negative); Hyaline Casts,Urine 4 /lpf (0-2); Ketones,Urine Negative (Negative); Leukocyte Esterase,Urine Negative (Negative); Mucus,Urine Occasional /hpf; Nitrite,Urine Negative (Negative); Protein,Urine Negative (Negative); RBC,Urine 1 /hpf (0-5); Specific Gravity,Urine 1.014 (1.001-1.035); Squamous Epithelial Cell,Urine 1 /hpf (0-4); Urobilinogen,Urine <2.0 mg/dL (<2.0); WBC,Urine 2 /hpf (0-5)
[2021-07-05 11:04] LABS: Basophils # (A) 0.05 X 10*3/uL (0.00-0.10); Basophils % (A) 0.7 %; Eosinophils # (A) 0.23 X 10*3/uL (0.04-0.35); Eosinophils % (A) 3.2 %; HCT 41.9 % (37.2-46.3); Lymphocytes # (A) 2.57 X 10*3/uL (0.90-5.00); Lymphocytes % (A) 35.8 %; MCH 31.6 pg (27.0-32.0); MCV 101.9 fL (80.0-97.0); Mean Platelet Volume 10.3 fL (9.5-12.2); Monocytes # (A) 0.64 X 10*3/uL (0.20-1.00); Monocytes % (A) 8.9 %; Neutrophils # (A) 3.64 X 10*3/uL (1.80-7.70); Neutrophils % (A) 50.8 %; Platelet Count 263 X 10*3/uL (140-440); RBC 4.11 X 10*6/uL (4.10-5.20); RDW 13.2 % (11.5-14.5); WBC 7.17 X 10*3/uL (4.50-10.00)
[2021-07-05 12:49] LABS: African American GFR (CKD) 52.3 (60.0-200.0); Albumin 4.3 g/dL (3.8-4.9); Albumin/Globulin Ratio 1.98 (1.60-3.17); Anion Gap 13.5 mmol/L (10.00-18.00); BUN/Creat Ratio 12.56 Ratio (12.00-20.00); Blood Urea Nitrogen 15.7 mg/dL (9.0-27.0); Carbon Dioxide 22.5 mmol/L (20.0-27.5); Globulin 2.2 g/dL (1.6-3.3); Non-African American GFR(CKD) 45.1 (60.0-200.0); Potassium 4.1 mmol/L (3.5-5.5); Total Bilirubin 0.5 mg/dL (0.30-1.20); Total Protein 6.4 g/dL (6.2-8.2)
--- NOTE | 2021-07-05 15:47 | P.GSCN ---
History of Present Illness Consult date: 07/05/21 History of present illness: CHIEF COMPLAINT: Abdominal pain HISTORY OF PRESENT ILLNESS: This is a 66-year-old female who presented to the emergency room with abdominal pain, cramping and constipation. She reports she's had symptoms for about 4 days. She denies any nausea or vomiting. Patient apparently has been using Imodium at home and goes off her usual bowel regimen. Patient has had a bowel movement that is loose. No blood present in the stools. Patient started on a clear liquid diet this afternoon and reported increase in abdominal pain with gas and burping. She is been downgraded to nothing by mouth. She did require IV Dilaudid. Computed tomography scan of the abdomen had shown no acute change did reveal unchanged fat-containing ventral hernias. She was diagnosed with Covid 5 days ago. Denies any fever chills or sweats. Denies any cough. Denies any shortness of breath. 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 Right colectomy January 2019, Cholecyst ectomy, Heart Catheterization, Hernia Repair, Orthopedic Surgery MEDICATIONS: See list. ALLERGIES: See list. SOCIAL HISTORY: No illicit drug use. REVIEW OF SYSTEMS: CONSTITUTIONAL: Denies fever or chills. HEENT: Denies blurred vision, vision changes, or eye pain. Denies hemoptysis CARDIOVASCULAR: Denies chest pain or pressure. RESPIRATORY: No shortness of breath. GASTROINTESTINAL: See HPI for pertinent findings HEMATOLOGIC: Denies bleeding disorders. GENITOURINARY: Denies any blood in urine or increased urinary frequency. SKIN: Denies pruitis. Denies rash. PHYSICAL EXAM: VITAL SIGNS: Reviewed GENERAL: Well-developed in no acute distress. HEENT: No sclera icterus. Extraocular movements grossly intact. Moist buccal mucosa. Head is atraumatic, normocephalic. No nasal drainage. ABDOMEN: Soft. Obese. Nondistended. Diffuse tenderness with palpation NEUROLOGIC: Alert and oriented. Cranial nerves II through XII grossly intact. LABORATORY DATA: WBC 7.17 Hgb 13 platelets 263 Sodium 144 potassium 4.1 creatinine 1.3 LFTs mildly elevated trended down Lipase 127 COVID-19 detected IMAGING: CT abdomen and pelvis no acute abnormality or bowel traction. Unchanged small fat-containing ventral hernias and prior postsurgical changes. ASSESSMENT: 1. Abdominal pain 2. Constipation 3. Prior history of a right colectomy for colonic obstruction secondary to right colon volvulus 4. History of Josephine fundoplication 5. History of IBS 6. COVID-19 positive PLAN: -Keep patient nothing by mouth -Continue to observe -Continue pain medication as needed -Continue IV fluids -Continue Bentyl Thank you for this consultation Physician Die Repairer Forging note has been reviewed by physician. Signing provider agrees with the documented findings, assessment, and plan of care. 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 bowel resection for obstruction, amalia cataracts, Past Anesthesia/Blood Transfusion Reactions: No Reported Reaction Past Psychological History: No Psychological Hx Reported Additional Psychological History / Comment(s): short term memory loss Smoking Status: Former smoker Past Alcohol Use History: Rare Additional Past Alcohol Use History / Comment(s): quit smoking 20 yrs ago, smoked for 20 yrs Past Drug Use History: None Reported - Past Family History Mother Family Medical History: Cancer, CVA/TIA, Pulmonary Embolus Additional Family Medical History / Comment(s): breast cancer Father Family Medical History: CVA/TIA, Myocardial Infarction ([place]) Additional Family Medical History / Comment(s): . Brother(s) Family Medical History: Congestive Heart Failure (CHF) Additional Family Medical History / Comment(s): CABG Medications and Allergies Home Medications Medication Instructions Recorded Confirmed Type Gabapentin [Neurontin] 100 mg PO BID 09/18/20 07/04/21 History Aspirin 81 mg PO DAILY 60 Days #60 chew 09/20/20 07/04/21 Rx Losartan [Cozaar] 25 mg PO DAILY 30 Days #30 tab 09/20/20 07/04/21 Rx Dicyclomine [Bentyl] 10 mg PO TID 7 Days #21 capsule 07/02/21 07/04/21 Rx Diclofenac Sodium Gel [Voltaren 4 gm TOPICAL QID PRN 07/04/21 07/04/21 History Gel] Loperamide HCl [Imodium A-D] 2 mg PO DAILY PRN 07/04/21 07/04/21 History Meloxicam [Mobic] 7.5 mg PO DAILY PRN 07/04/21 07/04/21 History Metoprolol Succinate (ER) [Toprol 25 mg PO DAILY 07/04/21 07/04/21 History Xl] Omeprazole [PriLOSEC] 40 mg PO DAILY 07/04/21 07/04/21 History Topiramate [Topamax] 50 mg PO HS 07/04/21 07/04/21 History methylPREDNISolone [Medrol Dose See Taper PO DAILY 07/04/21 07/04/21 History Pack] traZODone HCL [Desyrel] 100 mg PO HS 07/04/21 07/04/21 History Allergies Allergy/AdvReac Type Severity Reaction Status Date / Time morphine Allergy Rash/Hives Verified 07/04/21 09:50 sulfamethoxazole Allergy ABD PAIN Verified 07/04/21 09:50 [From Bactrim] Surgical - Exam Vital Signs Temp Pulse Resp BP Pulse Ox 97.9 F 82 20 146/82 99 07/04/21 09:15 07/04/21 09:15 07/04/21 09:15 07/04/21 09:15 07/04/21 09:15 Results - Labs 07/05/21 07:29 07/05/21 07:29 Abnormal Lab Results - Last 24 Hours (Table) 07/04/21 07/04/21 07/05/21 Range/Units 15:03 16:18 07:29 MCV 101.9 H (80.0-97.0) fL MCHC 31.0 L (32.0-37.0) g/dL APTT 20.8 L (22.0-30.0) sec Est GFR (CKD-EPI)AfAm (60.0-200.0) Est GFR (CKD-EPI)NonAf (60.0-200.0) Glucose (70-110) mg/dL Urine Appearance (Clear) Urine Bacteria (None) /hpf Hyaline Casts (0-2) /lpf Urine Mucus (None) /hpf Coronavirus (PCR) Detected A (Not Detectd) 07/05/21 07/05/21 Range/Units 07:29 10:16 MCV (80.0-97.0) fL MCHC (32.0-37.0) g/dL APTT (22.0-30.0) sec Est GFR (CKD-EPI)AfAm 52.3 L (60.0-200.0) Est GFR (CKD-EPI)NonAf 45.1 L (60.0-200.0) Glucose 113 H (70-110) mg/dL Urine Appearance Cloudy H (Clear) Urine Bacteria Occasional H (None) /hpf Hyaline Casts 4 H (0-2) /lpf Urine Mucus Occasional H (None) /hpf Coronavirus (PCR) (Not Detectd) Diabetes panel 07/05/21 Range/Units 07:29 Sodium 144 (135-145) mmol/L Potassium 4.1 (3.5-5.5) mmol/L Chloride 108 (96-109) mmol/L Carbon Dioxide 22.5 (20.0-27.5) mmol/L BUN 15.7 (9.0-27.0) mg/dL Creatinine 1.3 (0.6-1.5) mg/dL Glucose 113 H (70-110) mg/dL Calcium 9.0 (8.7-10.3) mg/dL AST 31 (13-35) U/L ALT 35 (8-44) U/L Alkaline Phosphatase 85 (41-126) U/L Total Protein 6.4 (6.2-8.2) g/dL Albumin 4.3 (3.8-4.9) g/dL Calcium panel 07/05/21 Range/Units 07:29 Calcium 9.0 (8.7-10.3) mg/dL Albumin 4.3 (3.8-4.9) g/dL Pituitary panel 07/05/21 Range/Units 07:29 Sodium 144 (135-145) mmol/L Potassium 4.1 (3.5-5.5) mmol/L Chloride 108 (96-109) mmol/L Carbon Dioxide 22.5 (20.0-27.5) mmol/L BUN 15.7 (9.0-27.0) mg/dL Creatinine 1.3 (0.6-1.5) mg/dL Glucose 113 H (70-110) mg/dL Calcium 9.0 (8.7-10.3) mg/dL Adrenal panel 07/05/21 Range/Units 07:29 Sodium 144 (135-145) mmol/L Potassium 4.1 (3.5-5.5) mmol/L Chloride 108 (96-109) mmol/L Carbon Dioxide 22.5 (20.0-27.5) mmol/L BUN 15.7 (9.0-27.0) mg/dL Creatinine 1.3 (0.6-1.5) mg/dL Glucose 113 H (70-110) mg/dL Calcium 9.0 (8.7-10.3) mg/dL Total Bilirubin 0.50 (0.30-1.20) mg/dL AST 31 (13-35) U/L ALT 35 (8-44) U/L Alkaline Phosphatase 85 (41-126) U/L Total Protein 6.4 (6.2-8.2) g/dL Albumin 4.3 (3.8-4.9) g/dL
[2021-07-05] MEDS: traZODone HCL 100 MG TAB PO SCH (21:41)
[2021-07-05] MEDS: TOPIRAMATE 25 MG TAB PO SCH (21:41)
--- NOTE | 2021-07-05 22:31 | P.HPIM ---
History of Present Illness H&P Date: 07/05/21 Chief Complaint: abdominal pain Adriana Calderón is a 66 yo F with PMH of R hemicolectomy, history of bowel obstruction, HTN who presented to the ED with worsening abdominal pain and cramping. She states that she has alternated between constipation and diarrhea for a few years ever since she had bowel surgery and frequently uses immodium when she is experiencing diarrhea. She recently came down with cough, congestion and found to have COVID in her PCP clinic about 10 days ago. She subsequently developed worsening abdominal pain and cramping. She has not been able to eat. O n presentation vitals stable, labs with Cr 1.3, Covid positive. CT abd/pelvis with no acute process. Review of Systems All systems: negative Constitutional: Reports malaise, Reports weakness, Denies chills, Denies fever Eyes: denies blurred vision, denies pain Ears, nose, mouth and throat: Denies headache, Denies sore throat Cardiovascular: Denies chest pain, Denies shortness of breath Respiratory: Denies cough Gastrointestinal: Reports abdominal pain, Reports constipation, Denies diarrhea, Denies nausea, Denies vomiting Genitourinary: Denies dysuria, Denies hematuria Musculoskeletal: Denies myalgias Integumentary: Denies pruritus, Denies rash Neurological: Denies numbness, Denies weakness Psychiatric: Denies anxiety, Denies depression Endocrine: Denies fatigue, Denies weight change Past Medical History Past Medical History: Coronary Artery Disease (CAD), Diabetes Mellitus, Eye Disorder, GERD/Reflux, Hyperlipidemia, Memory Impairment, Osteoarthritis (OA), Renal Disease, Vascular Disorder Additional Past Medical History / Comment(s): hiatal hernia, NIDDM type II-diet control, neuropathy in bilateral legs, hx chronic kidney disease stage 3, PVD, 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 bowel resection for obstruction, amalia cataracts, Past Anesthesia/Blood Transfusion Reactions: No Reported Reaction Past Psychological History: No Psychological Hx Reported Additional Psychological History / Comment(s): short term memory loss Smoking Status: Former smoker Past Alcohol Use History: Rare Additional Past Alcohol Use History / Comment(s): quit smoking 20 yrs ago, smoked for 20 yrs Past Drug Use History: None Reported - Past Family History Mother Family Medical History: Cancer, CVA/TIA, Pulmonary Embolus Additional Family Medical History / Comment(s): breast cancer Father Family Medical History: CVA/TIA, Myocardial Infarction ([place]) Additional Family Medical History / Comment(s): . Brother(s) Family Medical History: Congestive Heart Failure (CHF) Additional Family Medical History / Comment(s): CABG Medications and Allergies Home Medications Medication Instructions Recorded Confirmed Type Gabapentin [Neurontin] 100 mg PO BID 09/18/20 07/04/21 History Aspirin 81 mg PO DAILY 60 Days #60 chew 09/20/20 07/04/21 Rx Losartan [Cozaar] 25 mg PO DAILY 30 Days #30 tab 09/20/20 07/04/21 Rx Dicyclomine [Bentyl] 10 mg PO TID 7 Days #21 capsule 07/02/21 07/04/21 Rx Diclofenac Sodium Gel [Voltaren 4 gm TOPICAL QID PRN 07/04/21 07/04/21 History Gel] Loperamide HCl [Imodium A-D] 2 mg PO DAILY PRN 07/04/21 07/04/21 History Meloxicam [Mobic] 7.5 mg PO DAILY PRN 07/04/21 07/04/21 History Metoprolol Succinate (ER) [Toprol 25 mg PO DAILY 07/04/21 07/04/21 History Xl] Omeprazole [PriLOSEC] 40 mg PO DAILY 07/04/21 07/04/21 History Topiramate [Topamax] 50 mg PO HS 07/04/21 07/04/21 History methylPREDNISolone [Medrol Dose See Taper PO DAILY 07/04/21 07/04/21 History Pack] traZODone HCL [Desyrel] 100 mg PO HS 07/04/21 07/04/21 History Allergies Allergy/AdvReac Type Severity Reaction Status Date / Time morphine Allergy Rash/Hives Verified 07/04/21 09:50 sulfamethoxazole Allergy ABD PAIN Verified 07/04/21 09:50 [From Bactrim] Physical Exam Vitals: Vital Signs Temp Pulse Resp BP Pulse Ox 07/05/21 15:00 98.4 F 65 18 104/65 98 07/05/21 10:30 97.7 F 78 16 174/71 98 07/05/21 03:26 97.6 F 73 17 122/75 93 L Intake and Output 07/05/21 07/05/21 07/05/21 06:59 14:59 22:59 Other: # Voids 1 2 1 # Bowel Movements 3 General: well nourished, well developed, NAD. Vitals reviewed Eyes: PERRL, EOMI, conjunctiva normal HENT: normocephalic, mucus membranes moist Neck: supple, no JVD Lungs: normal respiratory effort, no wheezes or rales CV: Regular rate and rhythm, no murmur. Peripheral pulses 2+ Abdomen: soft, nondistended, no organomegaly. generalized pain Lymph: no cervical or axillary LAD Skin: warm and dry. Neuro: A&Ox3, normal mood and affect Results CBC & Chem 7: 07/05/21 07:29 07/05/21 07:29 Labs: Abnormal Lab Results - Last 24 Hours (Table) 07/05/21 07/05/21 07/05/21 Range/Units 07:29 07:29 10:16 MCV 101.9 H (80.0-97.0) fL MCHC 31.0 L (32.0-37.0) g/dL Est GFR (CKD-EPI)AfAm 52.3 L (60.0-200.0) Est GFR (CKD-EPI)NonAf 45.1 L (60.0-200.0) Glucose 113 H (70-110) mg/dL Urine Appearance Cloudy H (Clear) Urine Bacteria Occasional H (None) /hpf Hyaline Casts 4 H (0-2) /lpf Urine Mucus Occasional H (None) /hpf Thrombosis Risk Factor Assmnt - Choose All That Apply Any of the Below Risk Factors Present?: Yes Each Factor Represents 1 point: Abnormal pulmonary function (COPD), Obesity (BMI >25) Other Risk Factors: Yes Each Risk Factor Represents 2 Points: Age 61-74 years Thrombosis Risk Factor Assessment Total Risk Factor Score: 4 Thrombosis Risk Factor Assessment Level: Moderate Risk Assessment and Plan Plan: 1. Abdominal pain, concern for partial SBO. CT no acute process. NPO. Surgery consult. IV fluids 2. HTN. Continue home antihypertensives 3. Covid positive. No evidence of Covid pneumonia. Droplet precautions. Continue to monitor
[2021-07-06] MEDS: SODIUM CHLORIDE 0.9% 1,000 ML IV SCH ×3 (05:07→20:30)
[2021-07-06] MEDS ORDERED: methylPREDNISolone SOD SUCCI 125 MG/2 ML VIAL IV STA (08:51)
[2021-07-06] MEDS: PANTOPRAZOLE 40 MG/10 ML VIAL IV SCH (09:39)
[2021-07-06] MEDS: GABAPENTIN 100 MG CAP PO SCH ×2 (09:40→20:30)
[2021-07-06] MEDS: DICYCLOMINE 10 MG CAP PO SCH ×3 (09:40→20:33)
[2021-07-06] MEDS: METOPROLOL SUCCINATE (ER) 25 MG TAB.ER.24H PO SCH (09:40)
[2021-07-06] MEDS: CHOLECALCIFEROL 25 MCG (1000 IU) TABLET PO SCH (09:40)
[2021-07-06] MEDS: ASPIRIN 81 MG PO SCH (09:40)
[2021-07-06] MEDS: LOSARTAN 25 MG TAB PO SCH (09:40)
[2021-07-06] MEDS: ZINC SULFATE 220 MG CAP PO SCH (09:41)
[2021-07-06] MEDS: ASCORBIC ACID 500 MG TAB PO SCH ×2 (09:41→20:30)
[2021-07-06] MEDS: IOPAMIDOL CONTRAST (ORAL USE) VIAL PO PRN ×2 (12:01→13:00)
[2021-07-06] MEDS: HYDROmorphone 1 MG/ML 1 ML SYRINGE IVP PRN (12:04)
--- NOTE | 2021-07-06 12:46 | P.PN ---
Subjective Progress Note Date: 07/06/21 CHIEF COMPLAINT: Abdominal pain HISTORY OF PRESENT ILLNESS: Patient had worsening abdominal pain yesterday after the clear liquid diet. She was made nothing by mouth. Patient is still reporting epigastric abdominal pain today. She is requiring the IV Dilaudid. She is having flatus and diarrhea. She denies any nausea or vomiting. Afebrile. No new labs PHYSICAL EXAM: VITAL SIGNS: Reviewed. GENERAL: Well-developed in no acute distress. HEENT: No sclera icterus. Extraocular movements grossly intact. Moist buccal mucosa. Head is atraumatic, normocephalic. ABDOMEN: Mildly distended. Tender epigastric area NEUROLOGIC: Alert and oriented. Cranial nerves II through XII grossly intact. ASSESSMENT: 1. Abdominal pain 2. Prior history of a right colectomy for colonic obstruction secondary to right colon volvulus 3. History of Josephine fundoplication 4. History of IBS 5. COVID-19 positive 6. Computed tomography scan without contrast from 07/04/21 had shown small fat- containing periumbilical and epigastric hernias. No bowel obstruction. PLAN: -Check computed tomography scan of abdomen and pelvis with oral contrast -Further recommendations forthcoming per CAT scan results -Continue pain medication -Continue supportive care -Keep patient nothing by mouth -Continue IV fluids Physician Weather Strip Installer note has been reviewed by physician. Signing provider agrees with the documented findings, assessment, and plan of care. Objective - Vital Signs Vital signs: Vital Signs Temp 97.3 F L 07/06/21 07:00 Pulse 57 L 07/06/21 07:00 Resp 18 07/06/21 07:00 BP 116/72 07/06/21 07:00 Pulse Ox 96 07/06/21 07:00 Intake & Output 07/05/21 07/06/21 07/06/21 18:59 06:59 18:59 Other: # Voids 2 1 1 # Bowel Movements 3 - Labs CBC & Chem 7: 07/05/21 07:29 07/05/21 07:29 Labs: Abnormal Lab Results - Last 24 Hours (Table) 07/05/21 Range/Units 07:29 Est GFR (CKD-EPI)AfAm 52.3 L (60.0-200.0) Est GFR (CKD-EPI)NonAf 45.1 L (60.0-200.0) Glucose 113 H (70-110) mg/dL
--- NOTE | 2021-07-06 14:12 | CT ---
EXAMINATION TYPE: CT abdomen pelvis wo con DATE OF EXAM: 07/06/2021 COMPARISON: 07/04/2021 HISTORY: Abdominal pain. CT DLP: 921 mGycm Automated exposure control for dose reduction was used. TECHNIQUE: Helical acquisition of images was performed from the lung bases through the pelvis. FINDINGS: LUNG BASES: Coronary artery calcification noted. Subsegmental linear changes at the lung bases most t ypical of atelectasis. 5 mm nodule left lung base too small to characterize. LIVER/GB: Postcholecystectomy changes noted. PANCREAS: No significant abnormality is seen. SPLEEN: Calcifications along the margin of the spleen. ADRENALS: No significant abnormality is seen. KIDNEYS: No hydronephrosis or nephrolithiasis. 5 mm indeterminate midpole exophytic lesion of the rig ht stable. Larger 2.3 cm lesion involving the midpole posterior left kidney measures 2 Hounsfield uni ts compatible with simple cyst. Additional sub-5 mm exophytic upper pole left renal lesion too small to characterize.. ADENOPATHY: None visualized. OSSEOUS STRUCTURES: Hypertrophic and degenerative changes spine.. BOWEL: Postsurgical change involving the epigastrium. Stomach is distended with contrast is seen to pass into the small bowel. Overall bowel gas pattern nonspecific. Correlate for previous bowel surger y. Correlate for previous right hemicolectomy. OTHER: Multiple fat-containing anterior abdominal wall hernias are again noted. There is mild indurat ion within the fat of one of the midline anterior abdominal hernias which could be related to area of omental infarction. IMPRESSION: 1. Mild gastric distention. Contrast is seen passing into the small follow, correlate clinically. 2. There remain multiple fat-containing anterior abdominal wall hernias. One of which does demonstrat es minimal induration of the fat which can be associated occasionally with omental infarction.
--- NOTE | 2021-07-06 15:46 | P.PN ---
Subjective Progress Note Date: 07/06/21 Adriana Calderón is a 66 yo F with PMH of R hemicolectomy, history of bowel obstruction, HTN who presented to the ED with worsening abdominal pain and cramping. She states that she has alternated between constipation and diarrhea for a few years ever since she had bowel surgery and frequently uses immodium when she is experiencing diarrhea. She recently came down with cough, congestion and found to have COVID in her PCP clinic about 10 days ago. She subsequently developed worsening abdominal pain and cramping. She has not been able to eat. On presentation vitals stable, labs with Cr 1.3, Covid positive. CT abd/pelvis with no acute process. 07/06/2021 unable to tolerate diet advancement to clear liquids yesterday and was downgraded to nothing by mouth. This morning continues to complain of severe mid epigastric discomfort, retching, no diarrhea. Denies vomiting. Maintained on IV fluid hydration. Reports IV Dilaudid helps but never takes pain completely away. Objective - Vital Signs Vital signs: Vital Signs Temp 97.3 F L 07/06/21 07:00 Pulse 57 L 07/06/21 07:00 Resp 18 07/06/21 07:00 BP 116/72 07/06/21 07:00 Pulse Ox 96 07/06/21 07:00 Intake & Output 07/05/21 07/06/21 07/06/21 18:59 06:59 18:59 Other: # Voids 2 1 # Bowel Movements 3 - Exam General: well nourished, well developed, NAD. Vitals reviewed Eyes: PERRL, EOMI, conjunctiva normal HENT: normocephalic, mucus membranes moist Neck: supple, no JVD Lungs: normal respiratory effort, no wheezes or rales CV: Regular rate and rhythm, no murmur. Peripheral pulses 2+ Abdomen: soft, nondistended, no organomegaly. generalized pain Lymph: no cervical or axillary LAD Skin: warm and dry. Neuro: A&Ox3, normal mood and affect - Labs CBC & Chem 7: 07/05/21 07:29 07/05/21 07:29 Labs: Abnormal Lab Results - Last 24 Hours (Table) 07/05/21 07/05/21 07/05/21 Range/Units 07:29 07:29 10:16 MCV 101.9 H (80.0-97.0) fL MCHC 31.0 L (32.0-37.0) g/dL Est GFR (CKD-EPI)AfAm 52.3 L (60.0-200.0) Est GFR (CKD-EPI)NonAf 45.1 L (60.0-200.0) Glucose 113 H (70-110) mg/dL Urine Appearance Cloudy H (Clear) Urine Bacteria Occasional H (None) /hpf Hyaline Casts 4 H (0-2) /lpf Urine Mucus Occasional H (None) /hpf Assessment and Plan Assessment: Abdominal pain, concern for partial SBO, CT with contrast pending Hypertension Acute Covid infection Plan: Continue on current medication regime ,monitoring and symptomatic treatment. Nothing by mouth, maintain IV fluid hydration. updated via phone. Pain management. ONe dose IV steroids ordered.CT with contrast pending. The impression and plan of care has been dictated as directed. : I performed a history and examination of this patient, discussed the same with the dictator. I agree with the dictator's note ,documented as a scribe. Any additional findings or plans will be noted.
[2021-07-06] MEDS ORDERED: ACETAMINOPHEN TAB 500 MG TAB PO STA (20:03)
[2021-07-06] MEDS: TOPIRAMATE 25 MG TAB PO SCH (20:33)
[2021-07-06] MEDS: traZODone HCL 100 MG TAB PO SCH (20:33)
[2021-07-07] MEDS: SODIUM CHLORIDE 0.9% 1,000 ML IV SCH ×3 (04:18→16:52)
[2021-07-07] MEDS: CHOLECALCIFEROL 25 MCG (1000 IU) TABLET PO SCH (09:18)
[2021-07-07] MEDS: ASCORBIC ACID 500 MG TAB PO SCH ×2 (09:20→19:50)
[2021-07-07] MEDS: ZINC SULFATE 220 MG CAP PO SCH (09:20)
[2021-07-07] MEDS: PANTOPRAZOLE 40 MG/10 ML VIAL IV SCH (09:28)
[2021-07-07] MEDS: METOPROLOL SUCCINATE (ER) 25 MG TAB.ER.24H PO SCH (09:29)
[2021-07-07] MEDS: GABAPENTIN 100 MG CAP PO SCH ×2 (09:29→19:50)
[2021-07-07] MEDS: DICYCLOMINE 10 MG CAP PO SCH ×3 (09:29→21:28)
[2021-07-07] MEDS: LOSARTAN 25 MG TAB PO SCH (09:29)
[2021-07-07] MEDS: ASPIRIN 81 MG PO SCH (09:32)
[2021-07-07 11:07] LABS: Basophils # (A) 0.01 X 10*3/uL (0.00-0.10); Basophils % (A) 0.1 %; Eosinophils # (A) 0 X 10*3/uL (0.04-0.35); Eosinophils % (A) 0 %; HGB 12.6 g/dL (12.0-15.0); Lymphocytes # (A) 1.26 X 10*3/uL (0.90-5.00); MCH 31.5 pg (27.0-32.0); MCHC 30.7 g/dL (32.0-37.0); MCV 102.5 fL (80.0-97.0); Mean Platelet Volume 10.2 fL (9.5-12.2); Monocytes # (A) 0.56 X 10*3/uL (0.20-1.00); Monocytes % (A) 7.1 %; Neutrophils # (A) 6.03 X 10*3/uL (1.80-7.70); Neutrophils % (A) 76.4 %; Platelet Count 247 X 10*3/uL (140-440); RDW 13.2 % (11.5-14.5); WBC 7.89 X 10*3/uL (4.50-10.00)
[2021-07-07 11:19] LABS: African American GFR (CKD) 59.1 (60.0-200.0); Anion Gap 14.3 mmol/L (10.00-18.00); BUN/Creat Ratio 12.12 Ratio (12.00-20.00); Blood Urea Nitrogen 13.7 mg/dL (9.0-27.0); Calcium 8.8 mg/dL (8.7-10.3); Carbon Dioxide 18.4 mmol/L (20.0-27.5); Potassium 4.5 mmol/L (3.5-5.5)
[2021-07-07 12:10] LABS: INR 1.03 (0.90-1.11); Prothrombin Time 11.3 sec (9.9-11.9)
--- NOTE | 2021-07-07 14:16 | P.PN ---
Subjective Progress Note Date: 07/07/21 CHIEF COMPLAINT: Abdominal pain HISTORY OF PRESENT ILLNESS: Patient reports that her abdominal pain is the same. She reports feeling a twisting sensation. She has been having diarrhea and flatus. No nausea or vomiting. CAT scan shows mild gastric distention. Contrast is seen passing into the small bowel bowel. There remain multiple fat- containing anterior abdominal hernias. One of which does demonstrate minimal induration of the fat which can be associated occasionally with omental infarction. Afebrile. WBC 7.89 Hgb 12.6 platelets 247 Patient seen and examined with Dr. moreno PHYSICAL EXAM: VITAL SIGNS: Reviewed. GENERAL: Well-developed in no acute distress. HEENT: No sclera icterus. Extraocular movements grossly intact. Moist buccal mucosa. Head is atraumatic, normocephalic. ABDOMEN: Mildly distended. Tender epigastric area NEUROLOGIC: Alert and oriented. Cranial nerves II through XII grossly intact. ASSESSMENT: 1. Abdominal pain with CAT scan showing multiple fat-containing anterior abdominal hernias and concerns for possible omental infarction 2. Prior history of a right colectomy for colonic obstruction secondary to right colon volvulus 3. History of Josephine fundoplication 4. History of IBS 5. COVID-19 positive PLAN: -Patient scheduled for incisional hernia repair tomorrow, 07/08/[address] moreno -Keep patient nothing by mouth after midnight -Continue pain medication -Continue supportive care -Continue IV fluids Physician Road Roller Engineer note has been reviewed by physician. Signing provider agrees with the documented findings, assessment, and plan of care. Objective - Vital Signs Vital signs: Vital Signs Temp 97.7 F 07/07/21 07:00 Pulse 80 07/07/21 09:28 Resp 17 07/07/21 07:00 BP 175/79 07/07/21 07:00 Pulse Ox 95 07/07/21 07:00 Intake & Output 07/06/21 07/07/21 07/07/21 18:59 06:59 18:59 Intake Total 240 Balance 240 Intake: Oral 240 Other: # Voids 2 4 # Bowel Movements 2 - Labs CBC & Chem 7: 07/07/21 08:17 07/07/21 08:17 Labs: Abnormal Lab Results - Last 24 Hours (Table) 07/07/21 07/07/21 Range/Units 08:17 08:17 RBC 4.00 L (4.10-5.20) X 10*6/uL MCV 102.5 H (80.0-97.0) fL MCHC 30.7 L (32.0-37.0) g/dL Eosinophils # 0 L (0.04-0.35) X 10*3/uL Chloride 110 H (96-109) mmol/L Carbon Dioxide 18.4 L (20.0-27.5) mmol/L Est GFR (CKD-EPI)AfAm 59.1 L (60.0-200.0) Est GFR (CKD-EPI)NonAf 51.0 L (60.0-200.0) Glucose 112 H (70-110) mg/dL
[2021-07-07] MEDS ORDERED: HYDROmorphone 0.5 MG/0.5 ML SYRINGE IVP STA (14:22)
[2021-07-07] MEDS ORDERED: ACETAMINOPHEN IV (For NPO) 1,000 MG in EMPTY BAG 1 BAG IVPB PRN (14:25)
[2021-07-07] MEDS ORDERED: ACETAMINOPHEN IV (For NPO) 1,000 MG in EMPTY BAG 1 BAG IVPB SCH (14:30)
--- NOTE | 2021-07-07 14:38 | P.PN ---
Subjective Progress Note Date: 07/07/21 Adriana Calderón is a 66 yo F with PMH of R hemicolectomy, history of bowel obstruction, HTN who presented to the ED with worsening abdominal pain and cramping. She states that she has alternated between constipation and diarrhea for a few years ever since she had bowel surgery and frequently uses immodium when she is experiencing diarrhea. She recently came down with cough, congestion and found to have COVID in her PCP clinic about 10 days ago. She subsequently developed worsening abdominal pain and cramping. She has not been able to eat. On presentation vitals stable, labs with Cr 1.3, Covid positive. CT abd/pelvis with no acute process. 07/06/2021 unable to tolerate diet advancement to clear liquids yesterday and was downgraded to nothing by mouth. This morning continues to complain of severe mid epigastric discomfort, retching, no diarrhea. Denies vomiting. Maintained on IV fluid hydration. Reports IV Dilaudid helps but never takes pain completely away. 07/07/2021 follow-up CT with contrast noted, reporting possible omental infarction. Surgery is scheduled for Sunday. Continues on IV fluid hydration, clear liquid diet.Reports minimal nausea, no emesis. Maintained on Bentyl, PPI. Complains of mid-epigastric pain, diarrhea and flatus. Dilaudid IV push PRN available on med regimen. Denies cough, congestion, chills, sweating. Afebrile. Denies chest pain, palpitations or shortness of breath. Maintaining O2 sats in the 90s on room air. Renal function stable. Objective - Vital Signs Vital signs: Vital Signs Temp 97.7 F 07/07/21 07:00 Pulse 80 07/07/21 09:28 Resp 17 07/07/21 07:00 BP 175/79 07/07/21 07:00 Pulse Ox 95 07/07/21 07:00 Intake & Output 07/06/21 07/07/21 07/07/21 18:59 06:59 18:59 Intake Total 240 Balance 240 Intake: Oral 240 Other: # Voids 2 4 # Bowel Movements 2 - Exam General: Sitting up in bed, NAD,Vitals reviewed Eyes: PERRL, EOMI, conjunctiva normal HENT: normocephalic, mucus membranes moist Neck: supple, no JVD Lungs: normal respiratory effort, no wheezes or rales CV: Regular rate and rhythm, no murmur. Peripheral pulses 2+ Abdomen: soft, distended, tender mid epigastric area ,no organomegaly. Skin: warm and dry.No rash Neuro: A&Ox3, normal mood and affect - Labs CBC & Chem 7: 07/07/21 08:17 07/07/21 08:17 Labs: Abnormal Lab Results - Last 24 Hours (Table) 07/07/21 07/07/21 Range/Units 08:17 08:17 RBC 4.00 L (4.10-5.20) X 10*6/uL MCV 102.5 H (80.0-97.0) fL MCHC 30.7 L (32.0-37.0) g/dL Eosinophils # 0 L (0.04-0.35) X 10*3/uL Chloride 110 H (96-109) mmol/L Carbon Dioxide 18.4 L (20.0-27.5) mmol/L Est GFR (CKD-EPI)AfAm 59.1 L (60.0-200.0) Est GFR (CKD-EPI)NonAf 51.0 L (60.0-200.0) Glucose 112 H (70-110) mg/dL Assessment and Plan Assessment: Abdominal pain, concern for partial SBO, CT with contrast reporting possible omental infarction. Hypertension Acute Covid infection Plan: Continue on current medication regime ,monitoring and symptomatic treatment.Continue IV fluid hydration. Pain management. Surgery scheduled for tomorrow. The impression and plan of care has been dictated as directed. : I performed a history and examination of this patient, discussed the same with the dictator. I agree with the dictator's note ,documented as a scribe. Any additional findings or plans will be noted.
[2021-07-07] MEDS: TOPIRAMATE 25 MG TAB PO SCH (19:50)
[2021-07-07] MEDS: traZODone HCL 100 MG TAB PO SCH (21:28)
[2021-07-08] MEDS: SODIUM CHLORIDE 0.9% 1,000 ML IV SCH ×3 (04:27→21:05)
[2021-07-08] MEDS: PANTOPRAZOLE 40 MG/10 ML VIAL IV SCH (08:07)
[2021-07-08] MEDS: DICYCLOMINE 10 MG CAP PO SCH ×3 (08:08→21:00)
[2021-07-08] MEDS: LOSARTAN 25 MG TAB PO SCH (08:08)
[2021-07-08] MEDS: GABAPENTIN 100 MG CAP PO SCH ×2 (08:08→21:00)
[2021-07-08] MEDS: METOPROLOL SUCCINATE (ER) 25 MG TAB.ER.24H PO SCH (08:08)
[2021-07-08] MEDS: ASPIRIN 81 MG PO SCH (08:09)
[2021-07-08] MEDS: CHOLECALCIFEROL 25 MCG (1000 IU) TABLET PO SCH (08:19)
[2021-07-08] MEDS: ZINC SULFATE 220 MG CAP PO SCH (08:19)
[2021-07-08] MEDS: ASCORBIC ACID 500 MG TAB PO SCH ×2 (08:19→20:59)
[2021-07-08] MEDS: HYDROmorphone 0.5 MG/0.5 ML SYRINGE IVP PRN ×2 (08:32→21:00)
[2021-07-08 09:23] LABS: HCT 41.7 % (34.0-46.0); HGB 12.9 gm/dL (11.4-16.0); Hypochromasia Slight; MCH 32.7 pg (25.0-35.0); MCHC 31.1 g/dL (31.0-37.0); MCV 105.3 fL (80.0-100.0); Macrocytosis Moderate; Mean Platelet Volume 8.1; Platelet Count 231 k/uL (150-450); RBC 3.96 m/uL (3.80-5.40); RDW 13.6 % (11.5-15.5); WBC 5.5 k/uL (3.8-10.6)
[2021-07-08 09:40] LABS: African American GFR (CKD) 60 (>60 ml/min/1.73 sqM); Anion Gap 9 mmol/L; Blood Urea Nitrogen 12 mg/dL (7-17); Calcium 8.6 mg/dL (8.4-10.2); Carbon Dioxide 16 mmol/L (22-30); Chloride 117 mmol/L (98-107); Glucose 104 mg/dL (74-99); Non-African American GFR(CKD) 52 (>60 ml/min/1.73 sqM); Sodium 142 mmol/L (137-145)
[2021-07-08 09:45] LABS: Potassium 4.9 mmol/L (3.5-5.1)
[2021-07-08 12:15] LABS: Glucose,Whole Blood 100 mg/dL (75-99)
[2021-07-08] MEDS ORDERED: PROPOFOL 10 MG/ML 20 ML VIAL IV ONE (14:22)
[2021-07-08] MEDS ORDERED: LIDOCAINE 1% INJ 10MG/ML (20 ML MDV) ONE (14:22)
[2021-07-08] MEDS ORDERED: MIDAZOLAM 2 MG/2 ML VIAL ONE (14:22)
[2021-07-08] MEDS ORDERED: GLYCOPYRROLATE 0.2 MG/ML 2 ML VIAL ONE (14:22)
[2021-07-08] MEDS ORDERED: SUCCINYLCHOLINE CHLORIDE 100 MG/5 ML SYR IV ONE (14:22)
[2021-07-08] MEDS ORDERED: ONDANSETRON 4 MG/2 ML VIAL ONE (14:22)
[2021-07-08] MEDS ORDERED: fentaNYL (PF) 50 MCG/ML 2 ML AMP ONE (14:22)
[2021-07-08] MEDS ORDERED: NEOSTIGMINE 1 MG/ML 10 ML VIAL ONE (14:22)
[2021-07-08] MEDS ORDERED: ROCURONIUM 10 MG/ML (5 ML VIAL) IV ONE (14:22)
[2021-07-08] MEDS ORDERED: LACTATED RINGERS 1,000 ML IV ONE (14:22)
[2021-07-08] MEDS ORDERED: SODIUM CHLORIDE 0.9% 100 ML BAG ONE (14:22)
[2021-07-08] MEDS ORDERED: DEXAMETHASONE SOD PHOSPHATE 10 MG/ML 1 ML VIAL ONE (14:22)
[2021-07-08] MEDS ORDERED: ceFAZolin 1,000 MG VIAL ONE (14:22)
[2021-07-08] MEDS ORDERED: HYDROmorphone (PF) 1 MG/ML ONE (14:22)
--- NOTE | 2021-07-08 14:37 | P.PN ---
Subjective Progress Note Date: 07/08/21 Adriana Calderón is a 66 yo F with PMH of R hemicolectomy, history of bowel obstruction, HTN who presented to the ED with worsening abdominal pain and cramping. She states that she has alternated between constipation and diarrhea for a few years ever since she had bowel surgery and frequently uses immodium when she is experiencing diarrhea. She recently came down with cough, congestion and found to have COVID in her PCP clinic about 10 days ago. She subsequently developed worsening abdominal pain and cramping. She has not been able to eat. On presentation vitals stable, labs with Cr 1.3, Covid positive. CT abd/pelvis with no acute process. 07/06/2021 unable to tolerate diet advancement to clear liquids yesterday and was downgraded to nothing by mouth. This morning continues to complain of severe mid epigastric discomfort, retching, no diarrhea. Denies vomiting. Maintained on IV fluid hydration. Reports IV Dilaudid helps but never takes pain completely away. 07/07/2021 follow-up CT with contrast noted, reporting possible omental infarction. Surgery is scheduled for Sunday. Continues on IV fluid hydration, clear liquid diet.Reports minimal nausea, no emesis. Maintained on Bentyl, PPI. Complains of mid-epigastric pain, diarrhea and flatus. Dilaudid IV push PRN available on med regimen. Denies cough, congestion, chills, sweating. Afebrile. Denies chest pain, palpitations or shortness of breath. Maintaining O2 sats in the 90s on room air. Renal function stable. 07/08/2021 NPO, patient scheduled for surgery today. Patient overwhelmed, scared. Complains of severe pain, unchanged, recently received IV Dilaudid. Reports diarrhea, nausea, belching with no emesis. Afebrile. Denies chest pain, palpitations or shortness of breath. Maintaining O2 sats in the 90s on room air. Objective - Vital Signs Vital signs: Vital Signs Temp 98.4 F 07/08/21 07:00 Pulse 76 07/08/21 08:22 Resp 16 07/08/21 07:00 BP 157/86 07/08/21 07:00 Pulse Ox 93 L 07/08/21 07:00 Intake & Output 07/07/21 07/08/21 07/08/21 18:59 06:59 18:59 Intake Total 236 Balance 236 Intake: Oral 236 Other: # Voids 6 4 # Bowel Movements 6 - Exam General: Standing up at side of bed,bent over,guarding, anxious,Vitals reviewed Eyes: PERRL, EOMI, conjunctiva normal HENT: normocephalic, mucus membranes moist Neck: supple, no JVD Lungs: normal respiratory effort, no wheezes or rales CV: Regular rate and rhythm, no murmur. Peripheral pulses 2+ Abdomen: soft, distended, tender mid epigastric area , guarding. Skin: warm and dry.No rash Neuro: A&Ox3, normal mood and affect. - Labs CBC & Chem 7: 07/08/21 08:39 07/08/21 08:39 Labs: Abnormal Lab Results - Last 24 Hours (Table) 07/07/21 07/07/21 07/08/21 Range/Units 08:17 08:17 08:39 RBC 4.00 L (4.10-5.20) X 10*6/uL MCV 102.5 H 105.3 H (80.0-97.0) fL MCHC 30.7 L (32.0-37.0) g/dL Eosinophils # 0 L (0.04-0.35) X 10*3/uL Chloride 110 H (96-109) mmol/L Carbon Dioxide 18.4 L (20.0-27.5) mmol/L Creatinine (0.52-1.04) mg/dL Est GFR (CKD-EPI)AfAm 59.1 L (60.0-200.0) Est GFR (CKD-EPI)NonAf 51.0 L (60.0-200.0) Glucose 112 H (70-110) mg/dL 07/08/21 Range/Units 08:39 RBC (4.10-5.20) X 10*6/uL MCV (80.0-97.0) fL MCHC (32.0-37.0) g/dL Eosinophils # (0.04-0.35) X 10*3/uL Chloride 117 H (96-109) mmol/L Carbon Dioxide 16 L (20.0-27.5) mmol/L Creatinine 1.11 H (0.52-1.04) mg/dL Est GFR (CKD-EPI)AfAm (60.0-200.0) Est GFR (CKD-EPI)NonAf (60.0-200.0) Glucose 104 H (70-110) mg/dL Assessment and Plan Assessment: Abdominal pain, concern for partial SBO, CT with contrast reporting possible omental infarction. Hypertension Acute Covid infection Memory impairment, history of Plan: Continue on current medication regime ,monitoring and symptomatic treatment.pain management, continue IV fluid hydration. Surgery pending. Clearance obtained for to visit patient prior to surgery and be involved in preop updates/info/consent given patient"s memory impairment. Nursing/surgery notified. The impression and plan of care has been dictated as directed. : I performed a history and examination of this patient, discussed the same with the dictator. I agree with the dictator's note ,documented as a scribe. Any additional findings or plans will be noted.
[2021-07-08] MEDS ORDERED: BUPIVACAIN-EPI 0.25%-1:200,000 30 ML VIAL SQ ONE (14:40)
--- NOTE | 2021-07-08 15:31 | P.OP ---
Date of Procedure: 07/08/21 Preoperative Diagnosis: Incarcerated incisional hernia Postoperative Diagnosis: Incarcerated incisional hernia Adhesions Procedure(s) Performed: ( Incarcerated incisional hernia with mesh. Lysis of adhesions Anesthesia: WILLY Surgeon: Reji Rangel Estimated Blood Loss (ml): 25 Pathology: none sent Condition: stable Disposition: PACU Description of Procedure: Patient's placed on the operating table in the supine position. She received general endotracheal anesthesia. Her abdomen was prepped and draped usual fashion. A skin incision was made through previous scar. The incarcerated hernia was encountered. The hernia sac was opened. There was a pressure omentum within the hernia. The hernia sac was further opened and adhesions to the hernia sac were lysed using sharp dissection. The hernia defect measured approximately 5 x 15 cm the fascia was repair was performed using 0 Ethibond pop-off suture. A piece of Prolene mesh was placed over top the repair and secured with secure strap tacker. A CASIMIRO drains placed through separate stab incision. Alonso's fascia close Happy. Skin was closed mohit. Patient top she will was sent to recovery room in stable condition.
[2021-07-08] MEDS ORDERED: DEXAMETHASONE SOD PHOSPHATE 4 MG/ML 1 ML VIAL IV ONE (16:29)
[2021-07-08] MEDS ORDERED: ONDANSETRON 4 MG/2 ML VIAL IVP ONE (16:29)
[2021-07-08] MEDS ORDERED: HYDROmorphone 0.5 MG/0.5 ML SYRINGE IVP PRN (16:29)
[2021-07-08] MEDS ORDERED: LIDOCAINE 1% (10MG/ML) FOR IV START INTRADERMA PRN (16:29)
[2021-07-08] MEDS ORDERED: MIDAZOLAM 2 MG/2 ML VIAL IV PRN (16:29)
[2021-07-08] MEDS: LACTATED RINGERS 1,000 ML IV SCH (16:43)
[2021-07-08] MEDS: traZODone HCL 100 MG TAB PO SCH (21:00)
[2021-07-08] MEDS: TOPIRAMATE 25 MG TAB PO SCH (21:00)
[2021-07-09] MEDS: HYDROmorphone 0.5 MG/0.5 ML SYRINGE IVP PRN ×4 (00:49→23:20)
[2021-07-09] MEDS: SODIUM CHLORIDE 0.9% 1,000 ML IV SCH ×3 (03:14→20:28)
[2021-07-09] MEDS: PANTOPRAZOLE 40 MG/10 ML VIAL IV SCH (08:00)
[2021-07-09] MEDS: ZINC SULFATE 220 MG CAP PO SCH (08:01)
[2021-07-09] MEDS: METOPROLOL SUCCINATE (ER) 25 MG TAB.ER.24H PO SCH (08:01)
[2021-07-09] MEDS: LOSARTAN 25 MG TAB PO SCH (08:01)
[2021-07-09] MEDS: ASPIRIN 81 MG PO SCH (08:01)
[2021-07-09] MEDS: GABAPENTIN 100 MG CAP PO SCH ×2 (08:01→20:27)
[2021-07-09] MEDS: ASCORBIC ACID 500 MG TAB PO SCH ×2 (08:01→20:27)
[2021-07-09] MEDS: CHOLECALCIFEROL 25 MCG (1000 IU) TABLET PO SCH (08:01)
[2021-07-09] MEDS: DICYCLOMINE 10 MG CAP PO SCH ×3 (09:01→20:27)
[2021-07-09 11:47] LABS: African American GFR (CKD) 62 (>60 ml/min/1.73 sqM); Anion Gap 9 mmol/L; Blood Urea Nitrogen 13 mg/dL (7-17); Calcium 8.1 mg/dL (8.4-10.2); Carbon Dioxide 15 mmol/L (22-30); Chloride 113 mmol/L (98-107); Glucose 118 mg/dL (74-99); Non-African American GFR(CKD) 54 (>60 ml/min/1.73 sqM); Sodium 137 mmol/L (137-145)
[2021-07-09 13:08] LABS: Basophils % (A) 0 %; Eosinophils # (A) 0.1 k/uL (0-0.7); Eosinophils % (A) 1 %; HCT 38.3 % (34.0-46.0); HGB 12.4 gm/dL (11.4-16.0); Lymphocytes # (A) 0.9 k/uL (1.0-4.8); Lymphocytes % (A) 8 %; MCH 32.4 pg (25.0-35.0); MCHC 32.3 g/dL (31.0-37.0); Mean Platelet Volume 8.6; Monocytes # (A) 0.5 k/uL (0-1.0); Monocytes % (A) 5 %; Neutrophils # (A) 9.2 k/uL (1.3-7.7); Neutrophils % (A) 85 %; Platelet Count 221 k/uL (150-450); RBC 3.82 m/uL (3.80-5.40); RDW 13.1 % (11.5-15.5); WBC 10.8 k/uL (3.8-10.6)
[2021-07-09 13:10] LABS: MCV 100.2 fL (80.0-100.0)
[2021-07-09] MEDS: LACTATED RINGERS 1,000 ML IV SCH (17:52)
[2021-07-09] MEDS: TOPIRAMATE 25 MG TAB PO SCH (20:27)
[2021-07-09] MEDS: traZODone HCL 100 MG TAB PO SCH (20:27)
--- NOTE | 2021-07-09 22:30 | PN ---
PROGRESS NOTE I am covering for Dr. Lewis. DATE OF SERVICE: 07/09/2021 This 66-year-old woman who was admitted after incarcerated incisional hernia repair with mesh and lysis of adhesions is being closely monitored. No chest pain. No palpitations. No fever. PHYSICAL EXAMINATION: Alert and oriented x3. Pulse is 68, blood pressure 115/69, respiration 18, temperature 97.8, pulse ox 97% on room air. HEENT: Conjunctivae normal. NECK: No jugular venous distention. CARDIOVASCULAR: S1, S2 muffled. ABDOMEN: Soft. Status post surgery. LEGS: No edema. No swelling. NERVOUS SYSTEM: No focal deficit. LABS: WBC 10.8, MCV 100.2, and CO2 is 15. ASSESSMENT: 1. Status post incarcerated incisional hernia repair with mesh and lysis of adhesions. 2. Acute COVID-19 infection. 3. Increased white count. 4. Increased mean corpuscular volume. 5. Hypertension. 6. History of memory impairment. RECOMMENDATIONS AND DISCUSSION: I recommend to continue current medications, continue with the monitoring, symptomatic treatment. Otherwise, will repeat labs. Closely follow with Surgery. Guarded prognosis. Further recommendations to follow. MMODL / IJN: [id number] /
[2021-07-10] MEDS: SODIUM CHLORIDE 0.9% 1,000 ML IV SCH (02:07)
[2021-07-10] MEDS: HYDROmorphone 0.5 MG/0.5 ML SYRINGE IVP PRN ×2 (04:16→10:17)
[2021-07-10] MEDS: ZINC SULFATE 220 MG CAP PO SCH (07:11)
[2021-07-10] MEDS: PANTOPRAZOLE 40 MG/10 ML VIAL IV SCH (07:11)
[2021-07-10] MEDS: GABAPENTIN 100 MG CAP PO SCH ×2 (07:12→20:49)
[2021-07-10] MEDS: ASPIRIN 81 MG PO SCH (07:12)
[2021-07-10] MEDS: ASCORBIC ACID 500 MG TAB PO SCH ×2 (07:12→20:49)
[2021-07-10] MEDS: CHOLECALCIFEROL 25 MCG (1000 IU) TABLET PO SCH (07:12)
[2021-07-10] MEDS: DICYCLOMINE 10 MG CAP PO SCH ×3 (07:12→20:50)
[2021-07-10] MEDS: LOSARTAN 25 MG TAB PO SCH (07:18)
[2021-07-10] MEDS: METOPROLOL SUCCINATE (ER) 25 MG TAB.ER.24H PO SCH (07:18)
[2021-07-10 07:49] LABS: ALT 15 U/L (4-34); AST 24 U/L (14-36); African American GFR (CKD) 62 (>60 ml/min/1.73 sqM); Albumin 2.8 g/dL (3.5-5.0); Albumin/Globulin Ratio 1.2; Alkaline Phosphatase 55 U/L (38-126); Anion Gap 5 mmol/L; Blood Urea Nitrogen 11 mg/dL (7-17); Carbon Dioxide 18 mmol/L (22-30); Chloride 116 mmol/L (98-107); Globulin 2.3 g/dL; Glucose 88 mg/dL (74-99); Non-African American GFR(CKD) 54 (>60 ml/min/1.73 sqM); Potassium 3.7 mmol/L (3.5-5.1); Sodium 139 mmol/L (137-145); Total Bilirubin 0.5 mg/dL (0.2-1.3); Total Protein 5.1 g/dL (6.3-8.2)
[2021-07-10 08:04] LABS: Basophils % (A) 0 %; Eosinophils # (A) 0.1 k/uL (0-0.7); Eosinophils % (A) 3 %; HCT 35.6 % (34.0-46.0); HGB 10.9 gm/dL (11.4-16.0); Hypochromasia Moderate; Lymphocytes # (A) 1.2 k/uL (1.0-4.8); Lymphocytes % (A) 23 %; MCH 32.4 pg (25.0-35.0); MCHC 30.7 g/dL (31.0-37.0); MCV 105.6 fL (80.0-100.0); Macrocytosis Slight; Mean Platelet Volume 7.8; Monocytes # (A) 0.3 k/uL (0-1.0); Monocytes % (A) 5 %; Neutrophils # (A) 3.8 k/uL (1.3-7.7); Neutrophils % (A) 69 %; Platelet Count 184 k/uL (150-450); RBC 3.37 m/uL (3.80-5.40); WBC 5.5 k/uL (3.8-10.6)
--- NOTE | 2021-07-10 11:16 | XR ---
EXAMINATION TYPE: XR chest 1V portable DATE OF EXAM: 07/10/2021 COMPARISON: 09/19/2019 HISTORY: Cough TECHNIQUE: Single frontal view of the chest is obtained. FINDINGS: Prominent perihilar interstitial changes. Subsegmental changes left lung base limited insp iration. Heart size upper limits of normal. Diffuse osteopenia and arthropathy shoulders. IMPRESSION: 1. Correlate for mild bronchitis or central interstitial pneumonitis. 2. Left lower lobe atelectasis versus early infiltrate.
[2021-07-10] MEDS ORDERED: ACETAMINOPHEN TAB 325 MG TAB PO PRN (11:46)
--- NOTE | 2021-07-10 12:05 | P.PN ---
Progress Note - Text Progress Note Date: 07/10/21 Patient feels better. She has some mild incisional pain. On exam vital signs are stable. Abdomen soft. Repair of incarcerated incisional hernia. Patient is progressing. With his discharged home next 24-48 hours.
--- NOTE | 2021-07-10 15:31 | PN ---
PROGRESS NOTE I am covering for Dr. Lewis. DATE OF SERVICE: 07/10/2021 This 66-year-old woman who was admitted after incarcerated incisional hernia is being closely monitored. No chest pain. No palpitations. No fever. The most recent chest x-ray which was reviewed personally by me showed some atelectasis. No chest pain. No palpitations. No fever. PHYSICAL EXAMINATION: Alert and oriented times three. Pulse 67. Blood pressure 120/73, respiration 18, temperature 98.1, pulse ox 98% on room air. HEENT: Conjunctivae normal. Neck: No JVD. Cardiovascular: S1, S2 muffled. Respiration: A few scattered rhonchi. Abdomen: Soft, status post surgery. Legs: No edema. No swelling. Nervous system: no focal deficits. LABS: Hemoglobin 10.6, white count noted. ASSESSMENT: 1. Status post incarcerated incisional hernia with mesh and lysis of adhesions. 2. Acute COVID-19 infection. 3. Atelectasis. 4. Increased WBC. 5. Increased MCV. 6. Hypertension. 7. History of memory impairment. RECOMMENDATIONS AND DISCUSSION: Recommend to continue current medications, management and symptomatic treatment. Otherwise, closely follow with surgery. Dr. Lewis will follow tomorrow. MMODL / IJN: [id number] /
[2021-07-10] MEDS: traMADol 50 MG TAB PO PRN ×2 (16:25→20:48)
[2021-07-10] MEDS: traZODone HCL 100 MG TAB PO SCH (20:49)
[2021-07-10] MEDS: TOPIRAMATE 25 MG TAB PO SCH (20:50)
[2021-07-10] MEDS: LACTATED RINGERS 1,000 ML IV SCH (23:58)
[2021-07-11] MEDS: SODIUM CHLORIDE 0.9% 1,000 ML IV SCH (03:41)
[2021-07-11 03:49] VITALS: RESP 18
[2021-07-11 08:11] VITALS: BP 144/72; PULSE 88; TEMP 97.8
[2021-07-11] MEDS: CHOLECALCIFEROL 25 MCG (1000 IU) TABLET PO SCH (09:40)
[2021-07-11] MEDS: DICYCLOMINE 10 MG CAP PO SCH (09:40)
[2021-07-11] MEDS: ASCORBIC ACID 500 MG TAB PO SCH (09:41)
[2021-07-11] MEDS: PANTOPRAZOLE 40 MG/10 ML VIAL IV SCH (09:41)
[2021-07-11] MEDS: LOSARTAN 25 MG TAB PO SCH (09:41)
[2021-07-11] MEDS: ASPIRIN 81 MG PO SCH (09:41)
[2021-07-11] MEDS: METOPROLOL SUCCINATE (ER) 25 MG TAB.ER.24H PO SCH (09:41)
[2021-07-11] MEDS: GABAPENTIN 100 MG CAP PO SCH (09:41)
[2021-07-11] MEDS: ZINC SULFATE 220 MG CAP PO SCH (09:43)
[2021-07-11 11:30] LABS: Basophils % (A) 1 %; Eosinophils # (A) 0.1 k/uL (0-0.7); Eosinophils % (A) 2 %; HCT 37.3 % (34.0-46.0); Hypochromasia Slight; Lymphocytes # (A) 0.8 k/uL (1.0-4.8); Lymphocytes % (A) 15 %; MCH 33.5 pg (25.0-35.0); MCHC 32.1 g/dL (31.0-37.0); MCV 104.5 fL (80.0-100.0); Macrocytosis Slight; Monocytes # (A) 0.3 k/uL (0-1.0); Monocytes % (A) 5 %; Neutrophils # (A) 4.3 k/uL (1.3-7.7); Neutrophils % (A) 77 %; Platelet Count 194 k/uL (150-450); RBC 3.57 m/uL (3.80-5.40); RDW 13.1 % (11.5-15.5); WBC 5.5 k/uL (3.8-10.6)
[2021-07-11 11:44] LABS: African American GFR (CKD) 71 (>60 ml/min/1.73 sqM); Anion Gap 5 mmol/L; Blood Urea Nitrogen 7 mg/dL (7-17); Calcium 8.5 mg/dL (8.4-10.2); Carbon Dioxide 22 mmol/L (22-30); Chloride 114 mmol/L (98-107); Glucose 112 mg/dL (74-99); Non-African American GFR(CKD) 62 (>60 ml/min/1.73 sqM); Sodium 141 mmol/L (137-145)
--- NOTE | 2021-07-11 13:50 | P.PN ---
Subjective Progress Note Date: 07/11/21 CHIEF COMPLAINT: Abdominal pain HISTORY OF PRESENT ILLNESS: Patient is feeling better. She is status post repair of incarcerated incisional hernia with mesh and lysis of adhesions. Patient tolerated surgery well. Her pain is controlled. She denies any nausea or vomiting. She is tolerating diet. She is having flatus and bowel movement. Afebrile. WBC is 5.5. CASIMIRO drain with 30 mL serosanguineous output. Patient seen and examined with Dr. moreno PHYSICAL EXAM: VITAL SIGNS: Reviewed. GENERAL: Well-developed in no acute distress. HEENT: No sclera icterus. Extraocular movements grossly intact. Moist buccal mucosa. Head is atraumatic, normocephalic. ABDOMEN: Soft nondistended incisional dressing clean dry and intact CASIMIRO drain with serosanguineous output NEUROLOGIC: Alert and oriented. Cranial nerves II through XII grossly intact. ASSESSMENT: 1. Incarcerated incisional hernia status post repair with mesh and lysis of adhesions PLAN: -Patient is stable from surgical standpoint for discharge -Continue CASIMIRO drain after discharge -Advance diet to regular Physician Gallery Manager note has been reviewed by physician. Signing provider agrees with the documented findings, assessment, and plan of care. Objective - Vital Signs Vital signs: Vital Signs Temp 97.8 F 07/11/21 08:00 Pulse 88 07/11/21 08:00 Resp 18 07/11/21 08:00 BP 144/72 07/11/21 08:00 Pulse Ox 94 L 07/11/21 08:00 Intake & Output 07/10/21 07/11/21 07/11/21 18:59 06:59 18:59 Intake Total 1200 120 Output Total 60 25 30 Balance 1140 -25 90 Intake: Oral 1200 120 Output: Drainage 60 25 30 Right Abdomen 60 25 30 Other: Voiding Method Toilet Toilet # Voids 2 3 - Labs CBC & Chem 7: 07/11/21 10:50 07/11/21 10:50 Labs: Abnormal Lab Results - Last 24 Hours (Table) 07/11/21 07/11/21 Range/Units 10:50 10:50 RBC 3.57 L (3.80-5.40) m/uL MCV 104.5 H (80.0-100.0) fL Lymphocytes # 0.8 L (1.0-4.8) k/uL Chloride 114 H (98-107) mmol/L Glucose 112 H (74-99) mg/dL
[2021-07-11 14:40] VITALS: BMI 41.3
--- NOTE | 2021-07-11 15:53 | P.DS ---
Providers Date of admission: 07/07/21 07:20 Expected date of discharge: 07/11/21 Attending physician: Dmitry Lewis MD Consults: 07/04/21 15:09 Consult Physician Routine Consulting Provider: Reji Rangel Consult Reason/Comments: abp, review ct Do you want consulting provider notified?: Yes Primary care physician: Dmitry Lewis MD Hospital Course: Final Diagnoses: Abdominal pain, status post incarcerated incisional hernia repair with mesh and lysis of adhesions Hypertension Acute Covid infection Memory impairment, history of Hospital course:Adriana Calderón is a 66 yo F with PMH of R hemicolectomy, history of bowel obstruction, HTN who presented to the ED with worsening abdominal pain and cramping. She states that she has alternated between constipation and di arrhea for a few years ever since she had bowel surgery and frequently uses immodium when she is experiencing diarrhea. She recently came down with cough, congestion and found to have COVID in her PCP clinic about 10 days ago. She subsequently developed worsening abdominal pain and cramping. She has not been able to eat. On presentation vitals stable, labs with Cr 1.3, Covid positive. CT abd/pelvis with no acute process. 07/06/2021 unable to tolerate diet advancement to clear liquids yesterday and was downgraded to nothing by mouth. This morning continues to complain of severe mid epigastric discomfort, retching, no diarrhea. Denies vomiting. Maintained on IV fluid hydration. Reports IV Dilaudid helps but never takes pain completely away. 07/07/2021 follow-up CT with contrast noted, reporting possible omental infarction. Surgery is scheduled for Sunday. Continues on IV fluid hydration, clear liquid diet.Reports minimal nausea, no emesis. Maintained on Bentyl, PPI. Complains of mid-epigastric pain, diarrhea and flatus. Dilaudid IV push PRN available on med regimen. Denies cough, congestion, chills, sweating. Afebrile. Denies chest pain, palpitations or shortness of breath. Maintaining O2 sats in the 90s on room air. Renal function stable. 07/08/2021 NPO, patient scheduled for surgery today. Patient overwhelmed, scared. Complains of severe pain, unchanged, recently received IV Dilaudid. Reports diarrhea, nausea, belching with no emesis. Afebrile. Denies chest pain, palpitations or shortness of breath. Maintaining O2 sats in the 90s on room air. Status post incarcerated incisional hernia repair with mesh and lysis of adhesions. Tolerated procedure well. Tolerating clear liquids, reports had one liquid stool immediately post surgery, currently passing flatus, denies nausea or vomiting. Patient is eager for discharge, stating surgeon told her she would go home today. Patient will be discharged home today in stable condition with guarded prognosis, after tolerating diet advancement to soft, pending labs, final DC recommendations including pain management and clearance per surgery. CASIMIRO drain currently intact-further DC recommendations as per surgery. The impression and plan of care has been dictated as directed. : I performed a history and examination of this patient, discussed the same with the dictator. I agree with the dictator's note ,documented as a scribe. Any additional findings or plans will be noted. Patient Condition at Discharge: Stable Plan - Discharge Summary Discharge Rx Participant: No New Discharge Prescriptions: New Zinc Sulfate [Orazinc] 220 mg PO DAILY cap Acetaminophen Tab [Tylenol] 650 mg PO Q6HR PRN tab PRN Reason: Fever and/ or MILD Pain Cholecalciferol [Vitamin D3 (25 Mcg = 1000 Iu)] 100 mcg PO DAILY tablet Ascorbic Acid [Vitamin C] 500 mg PO BID tab traMADol HCL [Ultram] 50 mg PO Q6HR PRN 3 Days #12 tab PRN Reason: Pain Continue Dicyclomine [Bentyl] 10 mg PO TID 7 Days #21 capsule Diclofenac Sodium Gel [Voltaren Gel] 4 gm TOPICAL QID PRN PRN Reason: Pain Metoprolol Succinate (ER) [Toprol XL] 25 mg PO DAILY Omeprazole [PriLOSEC] 40 mg PO DAILY Topiramate [Topamax] 50 mg PO HS traZODone HCL [Desyrel] 100 mg PO HS Gabapentin [Neurontin] 100 mg PO BID Aspirin 81 mg PO DAILY 60 Days #60 chew Losartan [Cozaar] 25 mg PO DAILY 30 Days #30 tab Discontinued Loperamide HCl [Imodium A-D] 2 mg PO DAILY PRN PRN Reason: Loose Stool Meloxicam [Mobic] 7.5 mg PO DAILY PRN PRN Reason: Pain methylPREDNISolone [Medrol Dose Pack] See Taper PO DAILY Discharge Medication List Gabapentin [Neurontin] 100 mg PO BID 09/18/20 [History] Aspirin 81 mg PO DAILY 60 Days #60 chew 09/20/20 [Rx] Losartan [Cozaar] 25 mg PO DAILY 30 Days #30 tab 09/20/20 [Rx] Dicyclomine [Bentyl] 10 mg PO TID 7 Days #21 capsule 07/02/21 [Rx] Diclofenac Sodium Gel [Voltaren Gel] 4 gm TOPICAL QID PRN 07/04/21 [History] Metoprolol Succinate (ER) [Toprol XL] 25 mg PO DAILY 07/04/21 [History] Omeprazole [PriLOSEC] 40 mg PO DAILY 07/04/21 [History] Topiramate [Topamax] 50 mg PO HS 07/04/21 [History] traZODone HCL [Desyrel] 100 mg PO HS 07/04/21 [History] Acetaminophen Tab [Tylenol] 650 mg PO Q6HR PRN tab 07/11/21 [Rx] Ascorbic Acid [Vitamin C] 500 mg PO BID tab 07/11/21 [Rx] Cholecalciferol [Vitamin D3 (25 Mcg = 1000 Iu)] 100 mcg PO DAILY tablet 07/11/21 [Rx] Zinc Sulfate [Orazinc] 220 mg PO DAILY cap 07/11/21 [Rx] traMADol HCL [Ultram] 50 mg PO Q6HR PRN 3 Days #12 tab 07/11/21 [Rx] Follow up Appointment(s)/Referral(s): [facility] [NON-STAFF] - 1-2 Days Dmitry Lewis MD [Primary Care Provider] - 07/13/21 3:30 pm (Appointment at the [facility] location) Reji Rangel MD [STAFF PHYSICIAN] - 07/19/21 3:45 pm Activity/Diet/Wound Care/Special Instructions: Keep a log of CASIMIRO drain output and bring with you to your follow-up appointment Milk/strip drains 2-3 times a day No driving while taking ultram No lifting over 10 pounds You may shower. No soaking or tub baths for 2 weeks Very light activity until you are reevaluated at your follow up appointment with your surgeon Discharge Disposition: HOME WITH HOME HEALTH SERVICES
== END 2021-07-11 15:20 | disposition home health service (06) | DRG 353 ==
LOC: EC 09:11 → 6NMEDSUR 15:08 → OBSVTOIN 07-07 07:20
PROVIDERS: ADMIT Family Medicine; ATTEND Family Medicine
PROC: 8E0ZXY6 Isolation (ICD-10-PCS; 2021-07-07)
PROC: 0WUF0JZ Supplement Abdominal Wall with Synthetic Substitute, Open Approach (ICD-10-PCS; principal; 2021-07-08 12:55)
DX: K43.0 Incisional hernia with obstruction, without gangrene (principal); U07.1 COVID-19; J98.11 Atelectasis; R11.2 Nausea with vomiting, unspecified; K59.00 Constipation, unspecified; N18.30 Chronic kidney disease, stage 3 unspecified; E11.22 Type 2 diabetes mellitus with diabetic chronic kidney disease; E11.40 Type 2 diabetes mellitus with diabetic neuropathy, unspecified; E11.51 Type 2 diabetes mellitus with diabetic peripheral angiopathy without gangrene; E78.5 Hyperlipidemia, unspecified; I12.9 Hypertensive chronic kidney disease with stage 1 through stage 4 chronic kidney disease, or unspecified chronic kidney disease; I25.10 Atherosclerotic heart disease of native coronary artery without angina pectoris; K58.0 Irritable bowel syndrome with diarrhea; Z78.9 Other specified health status; Z79.1 Long term (current) use of non-steroidal anti-inflammatories (NSAID); Z79.82 Long term (current) use of aspirin; Z79.899 Other long term (current) drug therapy; Z80.3 Family history of malignant neoplasm of breast; Z82.3 Family history of stroke; Z82.49 Family history of ischemic heart disease and other diseases of the circulatory system; Z87.891 Personal history of nicotine dependence; Z90.49 Acquired absence of other specified parts of digestive tract
CPT/HCPCS: 36415; 71045; 74018; 74176; 80048; 80053; 81001; 82150; 83690; 85025; 85027; 85610; 85730; 87635; 96372; 99285

== ENCOUNTER 2021-07-24 20:07 | Inpatient (IN) | payer BC, MEDICARE ==
[2021-07-24] MEDS ORDERED: SODIUM CHLORIDE 0.9% 1,000 ML IV STA (20:38)
[2021-07-24] MEDS ORDERED: ONDANSETRON 4 MG/2 ML VIAL IVP STA (20:38)
[2021-07-24] MEDS ORDERED: HYDROmorphone 1 MG/ML 1 ML SYRINGE IVP STA (20:38)
--- NOTE | 2021-07-24 20:44 | ED ---
General Adult HPI - General Chief complaint: Abdominal Pain Stated complaint: Extreme pain post surgical Time Seen by Provider: 07/24/21 20:19 Source: patient Mode of arrival: ambulatory Limitations: no limitations - History of Present Illness Initial comments: This 66-year-old female with past medical history of CAD, diabetes mellitus, hyperlipidemia, bowel resection presents to the emergency department with severe abdominal and back pain 3 days. Patient has been here many times prior to this month due to similar pain. On 07/06/21 patient was found to have an omental infarction. Surgery was performed on 07/08/21 where an incarcerated hernia with a pressure omentum within the hernia was repaired. Patient discharged on 07/11/21 and was sent home where she states she felt well until 07/15/21 where she presented back to the emergency room with pain similar to what she is experiencing now in her abdomen and back. On 07/18/21 patient had a EGD performed with biopsy, there was no evidence of peptic ulcer disease patient was discharged on 07/20/21. Since being discharged, patient felt okay up until 07/22/21 when her excruciating abdominal pain radiating to her full back returned. She does wear a brief and has been has been changing them and he states she has had bowel movements and urinating as usual. Patient has been able to get up out of bed but has been slower moving around due to her abdominal and back pain. Patient denies any current chest pain, vomiting, shortness of breath, headache, dizziness. She has decreased appetite and was able to eat soup yesterday and has only had small amounts of fluids due to her excruciating pain. - Related Data Home Medications Medication Instructions Recorded Confirmed Gabapentin [Neurontin] 100 mg PO BID 09/18/20 07/24/21 Diclofenac Sodium Gel [Voltaren 4 gm TOPICAL QID PRN 07/04/21 07/24/21 Gel] Metoprolol Succinate (ER) [Toprol 25 mg PO DAILY 07/04/21 07/24/21 XL] Omeprazole [PriLOSEC] 40 mg PO DAILY 07/04/21 07/24/21 Topiramate [Topamax] 50 mg PO HS 07/04/21 07/24/21 traZODone HCL [Desyrel] 100 mg PO HS 07/04/21 07/24/21 predniSONE See Taper PO DIRECTED 07/15/21 07/24/21 [id number] 2 tab PO Q4HR PRN 07/24/21 07/24/21 [Excedrin] Meloxicam [Mobic] 7.5 mg PO DAILY PRN 07/24/21 07/24/21 Previous Rx's Medication Instructions Recorded Aspirin 81 mg PO DAILY 60 Days #60 chew 09/20/20 Losartan [Cozaar] 25 mg PO DAILY 30 Days #30 tab 09/20/20 Dicyclomine [Bentyl] 10 mg PO TID 7 Days #21 capsule 07/02/21 Acetaminophen Tab [Tylenol] 650 mg PO Q6HR PRN tab 07/11/21 Ascorbic Acid [Vitamin C] 500 mg PO BID tab 07/11/21 Cholecalciferol [Vitamin D3 (25 100 mcg PO DAILY tablet 07/11/21 Mcg = 1000 Iu)] Zinc Sulfate [Orazinc] 220 mg PO DAILY cap 07/11/21 traMADol HCL [Ultram] 50 mg PO Q6HR PRN 3 Days #12 tab 07/11/21 amLODIPine [Norvasc] 5 mg PO DAILY #30 tab 07/20/21 Allergies Allergy/AdvReac Type Severity Reaction Status Date / Time morphine Allergy Rash/Hives Verified 07/24/21 21:28 sulfamethoxazole Allergy ABD PAIN Verified 07/24/21 21:28 [From Bactrim] Review of Systems ROS Statement: Those systems with pertinent positive or pertinent negative responses have been documented in the HPI. ROS Other: All systems not noted in ROS Statement are negative. 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 bowel resection for obstruction, amalia cataracts, Past Anesthesia/Blood Transfusion Reactions: No Reported Reaction Past Psychological History: No Psychological Hx Reported Smoking Status: Former smoker Past Alcohol Use History: Rare Past Drug Use History: None Reported - Past Family History Mother Family Medical History: Cancer, CVA/TIA, Pulmonary Embolus Additional Family Medical History / Comment(s): breast cancer Father Family Medical History: CVA/TIA, Myocardial Infarction ([place]) Additional Family Medical History / Comment(s): . Brother(s) Family Medical History: Congestive Heart Failure (CHF) Additional Family Medical History / Comment(s): CABG General Exam Limitations: no limitations General appearance: alert, anxious (Currently states she is in a lot of pain) Head exam: Present: atraumatic, normocephalic, normal inspection Eye exam: Present: EOMI Pupils: Present: normal accommodation ENT exam: Present: other (Patient spitting into a bucket) Neck exam: Present: full ROM. Absent: tenderness Respiratory exam: Present: normal lung sounds bilaterally. Absent: respiratory distress, wheezes, rales, rhonchi, stridor Cardiovascular Exam: Present: regular rate, normal rhythm, normal heart sounds. Absent: systolic murmur, diastolic murmur, rubs, gallop, clicks GI/Abdominal exam: Present: soft, tenderness (Severe tenderness in all 4 quadrants. Midline mohit intact. CASIMIRO drain intact with mild redness surrounding. Does have serous sanguinous fluid draining into the bag), normal bowel sounds. Absent: distended, guarding, rebound, rigid Extremities exam: Present: full ROM. 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 Absent: rash Course Vital Signs 07/24/21 07/24/21 07/24/21 20:13 21:59 22:53 Temperature 99.1 F Pulse Rate 98 111 H 94 Respiratory 18 20 20 Rate Blood Pressure 156/77 168/96 163/100 O2 Sat by Pulse 98 95 97 Oximetry EKG Findings - EKG Comments: EKG Findings:: EKG interpretation: Sinus tachycardia. Ventricular rate 132 bpm. RI interval 142. QRS duration 76. QT/QTc 292/432. Similar compared to prior EKG on 07/15/2021 Medical Decision Making - Medical Decision Making This 66-year-old female presents emergency department with severe abdominal pain radiating to her back after having 2 operations earlier this month. CT abdomen and pelvis impression: Postsurgical changes. No compensating process. Adverse change compared to recent exam Labs unremarkable. Creatinine 1.07. Troponin 0.031 urine with white blood cells, 20 squamous epithelial cells, 2+ ketones, small blood 1+ protein. Patient was given fluids and pain medication which mildly helped her pain. Spoke with who agreed to have patient admitted to his services with Dr. Rangel consulted. He requested patient remain nothing by mouth. Patient given Rocephin 1g IV daily for up to 5 days. Patient started on maintenance fluids. Discussed case with attending, Dr. Snowden. Patient verbally agreed to plan - Lab Data Result diagrams: 07/24/21 21:02 07/24/21 21:02 Lab Results 07/24/21 07/24/21 07/24/21 Range/Units 21:02 21:02 21:02 WBC 6.1 (3.8-10.6) k/uL RBC 3.94 (3.80-5.40) m/uL Hgb 13.0 (11.4-16.0) gm/dL Hct 41.0 (34.0-46.0) % MCV 104.1 H (80.0-100.0) fL MCH 33.1 (25.0-35.0) pg MCHC 31.8 (31.0-37.0) g/dL RDW 14.7 (11.5-15.5) % Plt Count 292 (150-450) k/uL MPV 7.7 Neutrophils % 81 % Lymphocytes % 12 % Monocytes % 5 % Eosinophils % 1 % Basophils % 0 % Neutrophils # 4.9 (1.3-7.7) k/uL Lymphocytes # 0.7 L (1.0-4.8) k/uL Monocytes # 0.3 (0-1.0) k/uL Eosinophils # 0.1 (0-0.7) k/uL Basophils # 0.0 (0-0.2) k/uL Hypochromasia Slight Macrocytosis Moderate PT 11.6 (9.0-12.0) sec INR 1.1 (<1.2) APTT 22.2 (22.0-30.0) sec Sodium 139 (137-145) mmol/L Potassium 4.2 (3.5-5.1) mmol/L Chloride 107 (98-107) mmol/L Carbon Dioxide 24 (22-30) mmol/L Anion Gap 8 mmol/L BUN 9 (7-17) mg/dL Creatinine 1.07 H (0.52-1.04) mg/dL Est GFR (CKD-EPI)AfAm 63 (>60 ml/min/1.73 sqM) Est GFR (CKD-EPI)NonAf 55 (>60 ml/min/1.73 sqM) Glucose 169 H (74-99) mg/dL Plasma Lactic Acid [place] (0.7-2.0) mmol/L Calcium 8.6 (8.4-10.2) mg/dL Total Bilirubin 0.6 (0.2-1.3) mg/dL AST 34 (14-36) U/L ALT 24 (4-34) U/L Alkaline Phosphatase 93 (38-126) U/L Troponin I (0.000-0.034) ng/mL Total Protein 6.5 (6.3-8.2) g/dL Albumin 3.8 (3.5-5.0) g/dL Lipase 109 (23-300) U/L Urine Color Urine Appearance (Clear) Urine pH (5.0-8.0) Ur Specific [place] (1.001-1.035) Urine Protein (Negative) Urine Glucose (UA) (Negative) Urine Ketones (Negative) Urine Blood (Negative) Urine Nitrite (Negative) Urine Bilirubin (Negative) Urine Urobilinogen (<2.0) mg/dL Ur Leukocyte Esterase (Negative) Urine RBC (0-5) /hpf Urine WBC (0-5) /hpf Urine WBC Clumps (None) /hpf Ur Squamous Epith Cells (0-4) /hpf Amorphous Sediment (None) /hpf Hyaline Casts (0-2) /lpf Urine Mucus (None) /hpf 07/24/21 07/24/21 07/24/21 Range/Units 21:02 21:02 21:19 WBC (3.8-10.6) k/uL RBC (3.80-5.40) m/uL Hgb (11.4-16.0) gm/dL Hct (34.0-46.0) % MCV (80.0-100.0) fL MCH (25.0-35.0) pg MCHC (31.0-37.0) g/dL RDW (11.5-15.5) % Plt Count (150-450) k/uL MPV Neutrophils % % Lymphocytes % % Monocytes % % Eosinophils % % Basophils % % Neutrophils # (1.3-7.7) k/uL Lymphocytes # (1.0-4.8) k/uL Monocytes # (0-1.0) k/uL Eosinophils # (0-0.7) k/uL Basophils # (0-0.2) k/uL Hypochromasia Macrocytosis PT (9.0-12.0) sec INR (<1.2) APTT (22.0-30.0) sec Sodium (137-145) mmol/L Potassium (3.5-5.1) mmol/L Chloride (98-107) mmol/L Carbon Dioxide (22-30) mmol/L Anion Gap mmol/L BUN (7-17) mg/dL Creatinine (0.52-1.04) mg/dL Est GFR (CKD-EPI)AfAm (>60 ml/min/1.73 sqM) Est GFR (CKD-EPI)NonAf (>60 ml/min/1.73 sqM) Glucose (74-99) mg/dL Plasma Lactic Acid [place] 1.9 (0.7-2.0) mmol/L Calcium (8.4-10.2) mg/dL Total Bilirubin (0.2-1.3) mg/dL AST (14-36) U/L ALT (4-34) U/L Alkaline Phosphatase (38-126) U/L Troponin I 0.031 (0.000-0.034) ng/mL Total Protein (6.3-8.2) g/dL Albumin (3.5-5.0) g/dL Lipase (23-300) U/L Urine Color Yellow Urine Appearance Cloudy H (Clear) Urine pH 6.0 (5.0-8.0) Ur Specific [place] 1.028 (1.001-1.035) Urine Protein 1+ H (Negative) Urine Glucose (UA) Negative (Negative) Urine Ketones 2+ H (Negative) Urine Blood Small H (Negative) Urine Nitrite Negative (Negative) Urine Bilirubin Negative (Negative) Urine Urobilinogen 2.0 (<2.0) mg/dL Ur Leukocyte Esterase Large H (Negative) Urine RBC 3 (0-5) /hpf Urine WBC 133 H (0-5) /hpf Urine WBC Clumps Few H (None) /hpf Ur Squamous Epith Cells 20 H (0-4) /hpf Amorphous Sediment Occasional H (None) /hpf Hyaline Casts 55 H (0-2) /lpf Urine Mucus Few H (None) /hpf Disposition Clinical Impression: Postoperative pain, Dehydration Disposition: ADMITTED IP TO THIS HOSP Condition: Stable Is patient prescribed a controlled substance at d/c from ED?: No Referrals: Dmitry Lewis MD [Primary Care Provider] - 1-2 days
[2021-07-24] MEDS ORDERED: LORazepam 2 MG/ML INJ IV STA (21:07)
[2021-07-24 21:11] LABS: Basophils % (A) 0 %; Eosinophils # (A) 0.1 k/uL (0-0.7); Eosinophils % (A) 1 %; Hypochromasia Slight; Lymphocytes # (A) 0.7 k/uL (1.0-4.8); Lymphocytes % (A) 12 %; MCH 33.1 pg (25.0-35.0); MCHC 31.8 g/dL (31.0-37.0); MCV 104.1 fL (80.0-100.0); Macrocytosis Moderate; Mean Platelet Volume 7.7; Monocytes # (A) 0.3 k/uL (0-1.0); Monocytes % (A) 5 %; Neutrophils # (A) 4.9 k/uL (1.3-7.7); Neutrophils % (A) 81 %; Platelet Count 292 k/uL (150-450); RBC 3.94 m/uL (3.80-5.40); RDW 14.7 % (11.5-15.5); WBC 6.1 k/uL (3.8-10.6)
[2021-07-24 21:22] LABS: INR 1.1 (<1.2); Partial Thromboplastin Time 22.2 sec (22.0-30.0); Prothrombin Time 11.6 sec (9.0-12.0)
[2021-07-24 21:23] LABS: Albumin 3.8 g/dL (3.5-5.0); Calcium 8.6 mg/dL (8.4-10.2); Potassium 4.2 mmol/L (3.5-5.1); Total Bilirubin 0.6 mg/dL (0.2-1.3); Total Protein 6.5 g/dL (6.3-8.2)
[2021-07-24 21:49] LABS: Amorphous Sediment,Urine Occasional /hpf; Appearance,Urine Cloudy (Clear); Bilirubin,Urine Negative (Negative); Blood,Urine Small (Negative); Color,Urine Yellow; Glucose,Urine (UA) Negative (Negative); Hyaline Casts,Urine 55 /lpf (0-2); Ketones,Urine 2+ (Negative); Leukocyte Esterase,Urine Large (Negative); Mucus,Urine Few /hpf; Nitrite,Urine Negative (Negative); Protein,Urine 1+ (Negative); RBC,Urine 3 /hpf (0-5); Specific Gravity,Urine 1.028 (1.001-1.035); Squamous Epithelial Cell,Urine 20 /hpf (0-4); WBC,Urine 133 /hpf (0-5)
--- NOTE | 2021-07-24 22:06 | CT ---
EXAMINATION TYPE: CT abdomen pelvis wo con DATE OF EXAM: 07/24/2021 COMPARISON: 07/15/2021 HISTORY: post-op abdominal pain CT DLP: 751.8 mGycm Automated exposure control for dose reduction was used. Images obtained from the diaphragm to the floor the pelvis without contrast. Lung bases are clear. There is no pleural effusion. Heart size is normal. There is no pericardial eff usion. Liver spleen stomach pancreas appear intact. The bilateral lesser not dilated. Gallbladder scarlett ears absent. There are clips from cholecystectomy. There is no adrenal mass. Kidneys have normal size. There is no hydronephrosis. There is 3.5 cm corti devi cyst posterior left kidney. Ureters are not dilated. There is no retroperitoneal adenopathy. Blad yudy distends smoothly. There is no inguinal hernia. There is no free fluid in the pelvis. There is no evidence of a pelvic mass. Uterus is anteverted. Lumbar vertebrae have normal alignment. There is no compression fracture. There is multilevel mild amna mbar facet arthropathy. The bony pelvis is intact. There are skin mohit over the anterior midline a bdomen. There is no mesenteric edema. There is no ascites or free air. There is no sign of a bowel obstructio n. There is subcutaneous drainage catheter over the anterior mid abdomen. There is bowel surgery and apparent right hemicolectomy. IMPRESSION: Postsurgical changes. No complicating process. No adverse change compared to recent exam.
[2021-07-24] MEDS ORDERED: HYDROmorphone 0.5 MG/0.5 ML SYRINGE IVP STA (22:21)
[2021-07-24] MEDS ORDERED: NALOXONE 0.4 MG/ML 1 ML VIAL IV PRN (23:09)
[2021-07-24] MEDS: SODIUM CHLORIDE 0.9% 1,000 ML IV SCH (23:51)
[2021-07-25] MEDS: HYDROmorphone 0.5 MG/0.5 ML SYRINGE IVP PRN ×5 (03:34→19:47)
[2021-07-25] MEDS ORDERED: polyethylene glycoL 3350 17 GM POWD.PACK PO SCH (09:00)
[2021-07-25] MEDS ORDERED: amLODIPine 5 MG TAB PO SCH (09:00)
[2021-07-25] MEDS: ENOXAPARIN 40 MG/0.4 ML SYRINGE SQ SCH (09:06)
[2021-07-25] MEDS: PANTOPRAZOLE 40 MG TABLET PO SCH (09:12)
[2021-07-25] MEDS: CHOLECALCIFEROL 25 MCG (1000 IU) TABLET PO SCH (09:12)
[2021-07-25] MEDS: LOSARTAN 25 MG TAB PO SCH (09:12)
[2021-07-25] MEDS: DICYCLOMINE 10 MG CAP PO SCH ×3 (09:13→21:04)
[2021-07-25] MEDS: GABAPENTIN 100 MG CAP PO SCH ×2 (09:13→21:03)
[2021-07-25] MEDS ORDERED: amLODIPine 5 MG TAB PO STA (12:17)
--- NOTE | 2021-07-25 12:37 | P.HPIM ---
History of Present Illness H&P Date: 07/25/21 Chief Complaint: Postsurgical abdominal pain This is a 66-year-old female with past medical history of recent incarcerated incisional hernia repair with mesh and lysis of adhesions on 07/08/2021, recently discharged home on 07/20/2021. Returned to hospital with similar prese ntation as on prior two visits, reporting ongoing "twisting mid epigastric pain radiating across bilateral total quadrants". Abdominal pain accompanied by nausea with no emesis. Reports most recent bowel movement yesterday, small. Denies bleeding or dark stools. Denies fever or chills. T-max 99.1, normal WBC.Hypertensive.CT abdomen/pelvis reporting postsurgical changes with no adverse change compared to recent exam. EKG sinus tachycardia, troponin 0.031, denies chest pain, palpitations. Hematology, coagulation and chemistry profiles unremarkable with the exception of MCV 104.1, creatinine 1.07. UA reported few WBC clumps, large leukocytes, negative nitrates, culture pending. Coronavirus not detected. Review of Systems Review of Systems All systems: negative Constitutional: Reports malaise, Reports weakness, Denies chills, Denies fever Eyes: denies blurred vision, denies pain Ears, nose, mouth and throat: Denies headache, Denies sore throat Cardiovascular: Denies chest pain, Denies shortness of breath Respiratory: Denies cough Gastrointestinal: Reports abdominal pain, Reports constipation, Denies diarrhea, reports nausea, Denies vomiting Genitourinary: Denies dysuria, Denies hematuria Musculoskeletal: Denies myalgias Integumentary: Denies pruritus, Denies rash Neurological: Denies numbness, Denies weakness Psychiatric: Denies anxiety, Denies depression Endocrine: Denies fatigue, Denies weight change Past Medical History Past Medical History: Coronary Artery Disease (CAD), Diabetes Mellitus, Eye Disorder, GERD/Reflux, Hyperlipidemia, Memory Impairment, Osteoarthritis (OA), Renal Disease, Vascular Disorder Additional Past Medical History / Comment(s): hiatal hernia, NIDDM type II-diet control, neuropathy in bilateral legs, hx chronic kidney disease stage 3, PVD, 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 bowel resection for obstruction, amalia cataracts, Past Anesthesia/Blood Transfusion Reactions: No Reported Reaction Past Psychological History: No Psychological Hx Reported Additional Psychological History / Comment(s): short term memory loss Smoking Status: Former smoker Past Alcohol Use History: Rare Additional Past Alcohol Use History / Comment(s): quit smoking 20 yrs ago, smoked for 20 yrs Past Drug Use History: None Reported - Past Family History Mother Family Medical History: Cancer, CVA/TIA, Pulmonary Embolus Additional Family Medical History / Comment(s): breast cancer Father Family Medical History: CVA/TIA, Myocardial Infarction ([place]) Additional Family Medical History / Comment(s): . Brother(s) Family Medical History: Congestive Heart Failure (CHF) Additional Family Medical History / Comment(s): CABG Medications and Allergies Home Medications Medication Instructions Recorded Confirmed Type Gabapentin [Neurontin] 100 mg PO BID 09/18/20 07/24/21 History Aspirin 81 mg PO DAILY 60 Days #60 chew 09/20/20 07/24/21 Rx Losartan [Cozaar] 25 mg PO DAILY 30 Days #30 tab 09/20/20 07/24/21 Rx Dicyclomine [Bentyl] 10 mg PO TID 7 Days #21 capsule 07/02/21 07/24/21 Rx Diclofenac Sodium Gel [Voltaren 4 gm TOPICAL QID PRN 07/04/21 07/24/21 History Gel] Metoprolol Succinate (ER) [Toprol 25 mg PO DAILY 07/04/21 07/24/21 History XL] Omeprazole [PriLOSEC] 40 mg PO DAILY 07/04/21 07/24/21 History Topiramate [Topamax] 50 mg PO HS 07/04/21 07/24/21 History traZODone HCL [Desyrel] 100 mg PO HS 07/04/21 07/24/21 History Acetaminophen Tab [Tylenol] 650 mg PO Q6HR PRN tab 07/11/21 07/24/21 Rx Ascorbic Acid [Vitamin C] 500 mg PO BID tab 07/11/21 07/24/21 Rx Cholecalciferol [Vitamin D3 (25 100 mcg PO DAILY tablet 07/11/21 07/24/21 Rx Mcg = 1000 Iu)] Zinc Sulfate [Orazinc] 220 mg PO DAILY cap 07/11/21 07/24/21 Rx traMADol HCL [Ultram] 50 mg PO Q6HR PRN 3 Days #12 tab 07/11/21 07/24/21 Rx predniSONE See Taper PO DIRECTED 07/15/21 07/24/21 History amLODIPine [Norvasc] 5 mg PO DAILY #30 tab 07/20/21 07/24/21 Rx [id number] 2 tab PO Q4HR PRN 07/24/21 07/24/21 History [Excedrin] Meloxicam [Mobic] 7.5 mg PO DAILY PRN 07/24/21 07/24/21 History Allergies Allergy/AdvReac Type Severity Reaction Status Date / Time morphine Allergy Rash/Hives Verified 07/24/21 21:28 sulfamethoxazole Allergy ABD PAIN Verified 07/24/21 21:28 [From Bactrim] Physical Exam Vitals: Vital Signs Temp Pulse Pulse Resp BP BP Pulse Ox 07/25/21 07:00 98.4 F 83 19 186/76 98 07/25/21 00:38 98.0 F 117 H 22 187/81 97 07/25/21 00:00 98.4 F 86 20 174/78 98 07/24/21 22:53 94 20 163/100 97 07/24/21 21:59 111 H 20 168/96 95 07/24/21 20:13 99.1 F 98 18 156/77 98 Intake and Output 07/24/21 07/25/21 07/25/21 22:59 06:59 14:59 Output Total 30 Balance -30 Output: Drainage 30 Abdomen 30 Other: # Voids 2 Weight 95.254 kg 95.254 kg PHYSICAL EXAM: VITAL SIGNS: [As above] GENERAL: Sitting up in bed, crying, distressed, craddling upper abdomen Eyes: PERRL, EOMI, conjunctiva normal HENT: normocephalic, mucus membranes dry Neck: supple, no JVD Lungs: normal respiratory effort, no wheezes or rales CV: Regular rate and rhythm, no murmur. Peripheral pulses 2+ Abdomen: soft, nondistended, no organomegaly.positive guarding .Diffuse abdominal tenderness greatest in the mid epigastric radiating to right and left upper quadrants,positive bowel sounds. CASIMIRO with minimal serousang drg. Skin: warm and dry. Neuro: Cranial nerves 2 through 12 grossly intact, no focal deficits Results CBC & Chem 7: 07/24/21 21:02 07/24/21 21:02 Labs: Abnormal Lab Results - Last 24 Hours (Table) 07/24/21 07/24/21 07/24/21 Range/Units 21:02 21:02 21:19 MCV 104.1 H (80.0-100.0) fL Lymphocytes # 0.7 L (1.0-4.8) k/uL Creatinine 1.07 H (0.52-1.04) mg/dL Glucose 169 H (74-99) mg/dL Urine Appearance Cloudy H (Clear) Urine Protein 1+ H (Negative) Urine Ketones 2+ H (Negative) Urine Blood Small H (Negative) Ur Leukocyte Esterase Large H (Negative) Urine WBC 133 H (0-5) /hpf Urine WBC Clumps Few H (None) /hpf Ur Squamous Epith Cells 20 H (0-4) /hpf Amorphous Sediment Occasional H (None) /hpf Hyaline Casts 55 H (0-2) /lpf Urine Mucus Few H (None) /hpf Microbiology - Last 24 Hours (Table) 07/24/21 21:19 Urine Culture - Preliminary Urine,Catheterized Assessment and Plan Assessment: Unchanged epigastric abdominal pain status post surgery, readmission 3 post surgery Recent EGD reports mild antral gastritis, biopsies pending Recent incarcerated incisional hernia repair with mesh and lysis of adhesions, 07/08/2021 Post op Anemia, expected outcome CAD Hypertension Diabetes Melllitus Recent Acute Covid infection CKD stage 3 Memory impairment, history of Obesity, BMI 29.3 Plan: Continue on current medication regime ,monitoring and symptomatic treatment. MiraLAX and Gas-X ordered. Keep NPO. Pain management. Hypertensive, Norvasc increased,Hydralazine ordered with parameters to hold if systolic blood pressure less than 120.Surgery consult in place, recommendations pending. The impression and plan of care has been dictated as directed. : I performed a history and examination of this patient, discussed the same with the dictator. I agree with the dictator's note ,documented as a scribe. Any additional findings or plans will be noted.
[2021-07-25] MEDS: SIMETHICONE 80 MG CHEWABLE PO SCH ×4 (13:08→21:05)
--- NOTE | 2021-07-25 15:38 | P.GSCN ---
History of Present Illness Consult date: 07/25/21 History of present illness: CHIEF COMPLAINT: Abdominal pain HISTORY OF PRESENT ILLNESS: This is a 66-year-old female who presents back to the hospital with abdominal pain. Patient was just discharged from hospital 5 days ago on 07/20/2021 with similar abdominal pain thought to be related to postoperative pain. Patient is status post repair of incarcerated incisional hernia with mesh and lysis of adhesions on 07/08/2021 and had EGD on 07/18/2021 had shown mild antral gastritis. Patient reports that she was feeling well after discharge again. However over the last few days she had increase in upper abdominal pain. She describes it as a twisting sensation. The pain is intermittent. She has intermittent nausea no vomiting. She has been having bowel movements. Denies any fever chills or sweats. She was tachycardic on admission evidence of dehydration. Computed tomography scan of the abdomen and pelvis with L contrast was essentially negative. Surgical consult placed for postsurgical pain and dehydration. 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 Right colectomy secondary to colonic obstruction from colon volvulus January 2019. Cholecystectomy. Heart [place] terization. Coronary repair. Orthopedic surgery MEDICATIONS: See list. ALLERGIES: See list. SOCIAL HISTORY: No illicit drug use. REVIEW OF SYSTEMS: CONSTITUTIONAL: Denies fever or chills. HEENT: Denies blurred vision, vision changes, or eye pain. Denies hemoptysis CARDIOVASCULAR: Denies chest pain or pressure. RESPIRATORY: No shortness of breath. GASTROINTESTINAL: See HPI for pertinent findings HEMATOLOGIC: Denies bleeding disorders. GENITOURINARY: Denies any blood in urine or increased urinary frequency. SKIN: Denies pruitis. Denies rash. PHYSICAL EXAM: VITAL SIGNS: Reviewed GENERAL: Well-developed in no acute distress. HEENT: No sclera icterus. Extraocular movements grossly intact. Moist buccal mucosa. Head is atraumatic, normocephalic. No nasal drainage. ABDOMEN: Soft. Mildly distended. Diffuse tenderness. Incision site clean dry and intact. CASIMIRO drain with 30 mL serosanguineous output. NEUROLOGIC: Alert and oriented. Cranial nerves II through XII grossly intact. LABORATORY DATA: WBC 6.1 hemoglobin 13 platelets 292 Sodium 139 potassium 4.2 creatinine 1.07 Lactic acid 1.9 LFTs normal Lipase normal COVID-19 not detected Urine culture pending IMAGING: Computed tomography scan abdomen and pelvis. Postsurgical changes. No complicating process. No adverse change compared to recent exam. ASSESSMENT: 1. Abdominal pain 2. Possible postsurgical pain 3. Dehydration 4. Recent EGD revealing antral gastritis 5. Status post repair of incarcerated incisional hernia with mesh and lysis of adhesions on 07/08/2021 PLAN: -Continue supportive care -Add [place] for oral pain medication -Advance diet to clear liquids -Continue to monitor Thank you for this consultation Physician School Child Care Attendant note has been reviewed by physician. Signing provider agrees with the documented findings, assessment, and plan of care. 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 bowel resection for obstruction, amalia cataracts, Past Anesthesia/Blood Transfusion Reactions: No Reported Reaction Past Psychological History: No Psychological Hx Reported Additional Psychological History / Comment(s): short term memory loss Smoking Status: Former smoker Past Alcohol Use History: Rare Additional Past Alcohol Use History / Comment(s): quit smoking 20 yrs ago, smoked for 20 yrs Past Drug Use History: None Reported - Past Family History Mother Family Medical History: Cancer, CVA/TIA, Pulmonary Embolus Additional Family Medical History / Comment(s): breast cancer Father Family Medical History: CVA/TIA, Myocardial Infarction (ND) Additional Family Medical History / Comment(s): . Brother(s) Family Medical History: Congestive Heart Failure (CHF) Additional Family Medical History / Comment(s): CABG Medications and Allergies Home Medications Medication Instructions Recorded Confirmed Type Gabapentin [Neurontin] 100 mg PO BID 09/18/20 07/24/21 History Aspirin 81 mg PO DAILY 60 Days #60 chew 09/20/20 07/24/21 Rx Losartan [Cozaar] 25 mg PO DAILY 30 Days #30 tab 09/20/20 07/24/21 Rx Dicyclomine [Bentyl] 10 mg PO TID 7 Days #21 capsule 07/02/21 07/24/21 Rx Diclofenac Sodium Gel [Voltaren 4 gm TOPICAL QID PRN 07/04/21 07/24/21 History Gel] Metoprolol Succinate (ER) [Toprol 25 mg PO DAILY 07/04/21 07/24/21 History XL] Omeprazole [PriLOSEC] 40 mg PO DAILY 07/04/21 07/24/21 History Topiramate [Topamax] 50 mg PO HS 07/04/21 07/24/21 History traZODone HCL [Desyrel] 100 mg PO HS 07/04/21 07/24/21 History Acetaminophen Tab [Tylenol] 650 mg PO Q6HR PRN tab 07/11/21 07/24/21 Rx Ascorbic Acid [Vitamin C] 500 mg PO BID tab 07/11/21 07/24/21 Rx Cholecalciferol [Vitamin D3 (25 100 mcg PO DAILY tablet 07/11/21 07/24/21 Rx Mcg = 1000 Iu)] Zinc Sulfate [Orazinc] 220 mg PO DAILY cap 07/11/21 07/24/21 Rx traMADol HCL [Ultram] 50 mg PO Q6HR PRN 3 Days #12 tab 07/11/21 07/24/21 Rx predniSONE See Taper PO DIRECTED 07/15/21 07/24/21 History amLODIPine [Norvasc] 5 mg PO DAILY #30 tab 07/20/21 07/24/21 Rx Tfomgxj-Wnyk-Suog [id number] 2 tab PO Q4HR PRN 07/24/21 07/24/21 History [Excedrin] Meloxicam [Mobic] 7.5 mg PO DAILY PRN 07/24/21 07/24/21 History Allergies Allergy/AdvReac Type Severity Reaction Status Date / Time morphine Allergy Rash/Hives Verified 07/24/21 21:28 sulfamethoxazole Allergy ABD PAIN Verified 07/24/21 21:28 [From Bactrim] Surgical - Exam Vital Signs Temp Pulse Resp BP Pulse Ox 99.1 F 98 18 156/77 98 07/24/21 20:13 07/24/21 20:13 07/24/21 20:13 07/24/21 20:13 07/24/21 20:13 Results - Labs 07/24/21 21:02 07/24/21 21:02 Abnormal Lab Results - Last 24 Hours (Table) 07/24/21 07/24/21 07/24/21 Range/Units 21:02 21:02 21:19 MCV 104.1 H (80.0-100.0) fL Lymphocytes # 0.7 L (1.0-4.8) k/uL Creatinine 1.07 H (0.52-1.04) mg/dL Glucose 169 H (74-99) mg/dL Urine Appearance Cloudy H (Clear) Urine Protein 1+ H (Negative) Urine Ketones 2+ H (Negative) Urine Blood Small H (Negative) Ur Leukocyte Esterase Large H (Negative) Urine WBC 133 H (0-5) /hpf Urine WBC Clumps Few H (None) /hpf Ur Squamous Epith Cells 20 H (0-4) /hpf Amorphous Sediment Occasional H (None) /hpf Hyaline Casts 55 H (0-2) /lpf Urine Mucus Few H (None) /hpf Diabetes panel 07/24/21 Range/Units 21:02 Sodium 139 (137-145) mmol/L Potassium 4.2 (3.5-5.1) mmol/L Chloride 107 (98-107) mmol/L Carbon Dioxide 24 (22-30) mmol/L BUN 9 (7-17) mg/dL Creatinine 1.07 H (0.52-1.04) mg/dL Glucose 169 H (74-99) mg/dL Calcium 8.6 (8.4-10.2) mg/dL AST 34 (14-36) U/L ALT 24 (4-34) U/L Alkaline Phosphatase 93 (38-126) U/L Total Protein 6.5 (6.3-8.2) g/dL Albumin 3.8 (3.5-5.0) g/dL Calcium panel 07/24/21 Range/Units 21:02 Calcium 8.6 (8.4-10.2) mg/dL Albumin 3.8 (3.5-5.0) g/dL Pituitary panel 07/24/21 Range/Units 21:02 Sodium 139 (137-145) mmol/L Potassium 4.2 (3.5-5.1) mmol/L Chloride 107 (98-107) mmol/L Carbon Dioxide 24 (22-30) mmol/L BUN 9 (7-17) mg/dL Creatinine 1.07 H (0.52-1.04) mg/dL Glucose 169 H (74-99) mg/dL Calcium 8.6 (8.4-10.2) mg/dL Adrenal panel 07/24/21 Range/Units 21:02 Sodium 139 (137-145) mmol/L Potassium 4.2 (3.5-5.1) mmol/L Chloride 107 (98-107) mmol/L Carbon Dioxide 24 (22-30) mmol/L BUN 9 (7-17) mg/dL Creatinine 1.07 H (0.52-1.04) mg/dL Glucose 169 H (74-99) mg/dL Calcium 8.6 (8.4-10.2) mg/dL Total Bilirubin 0.6 (0.2-1.3) mg/dL AST 34 (14-36) U/L ALT 24 (4-34) U/L Alkaline Phosphatase 93 (38-126) U/L Total Protein 6.5 (6.3-8.2) g/dL Albumin 3.8 (3.5-5.0) g/dL
[2021-07-25] MEDS: SODIUM CHLORIDE 0.9% 1,000 ML IV SCH (17:12)
[2021-07-25] MEDS: polyethylene glycoL 3350 17 GM POWD.PACK PO SCH ×2 (17:17→21:03)
[2021-07-25] MEDS: hydrALAZINE HCL 25 MG TAB PO SCH ×2 (17:17→21:03)
[2021-07-25] MEDS: TOPIRAMATE 25 MG TAB PO SCH (21:03)
[2021-07-25] MEDS: traZODone HCL 100 MG TAB PO SCH (21:03)
[2021-07-25] MEDS: HYDROcodone/APAP 5-325MG 1 EACH TAB PO PRN (21:03)
[2021-07-26] MEDS: HYDROmorphone 0.5 MG/0.5 ML SYRINGE IVP PRN ×3 (07:39→21:43)
[2021-07-26] MEDS ORDERED: amLODIPine 10 MG TAB PO SCH (09:00)
[2021-07-26] MEDS: HYDROcodone/APAP 5-325MG 1 EACH TAB PO PRN ×4 (09:15→23:20)
[2021-07-26] MEDS: ENOXAPARIN 40 MG/0.4 ML SYRINGE SQ SCH (09:16)
[2021-07-26] MEDS: GABAPENTIN 100 MG CAP PO SCH ×2 (09:16→21:46)
[2021-07-26] MEDS: SIMETHICONE 80 MG CHEWABLE PO SCH ×4 (09:17→21:47)
[2021-07-26] MEDS: DICYCLOMINE 10 MG CAP PO SCH ×3 (09:17→21:46)
[2021-07-26] MEDS: PANTOPRAZOLE 40 MG TABLET PO SCH (09:18)
[2021-07-26] MEDS: hydrALAZINE HCL 25 MG TAB PO SCH ×3 (09:18→21:46)
[2021-07-26] MEDS: CHOLECALCIFEROL 25 MCG (1000 IU) TABLET PO SCH (09:18)
[2021-07-26] MEDS: polyethylene glycoL 3350 17 GM POWD.PACK PO SCH ×4 (09:19→21:50)
[2021-07-26] MEDS: LOSARTAN 25 MG TAB PO SCH (09:19)
[2021-07-26] MEDS: SODIUM CHLORIDE 0.9% 1,000 ML IV SCH ×2 (10:36→16:59)
[2021-07-26 11:36] LABS: Basophils # (A) 0.04 X 10*3/uL (0.00-0.10); Basophils % (A) 0.9 %; Eosinophils # (A) 0.23 X 10*3/uL (0.04-0.35); HCT 31.8 % (37.2-46.3); HGB 9.7 g/dL (12.0-15.0); Immature Grans, Automated 0.2 %; Lymphocytes # (A) 1.39 X 10*3/uL (0.90-5.00); Lymphocytes % (A) 30.2 %; MCHC 30.5 g/dL (32.0-37.0); Mean Platelet Volume 10.4 fL (9.5-12.2); Monocytes # (A) 0.51 X 10*3/uL (0.20-1.00); Monocytes % (A) 11.1 %; NRBC Per 100 WBC 0 /100 WBCS (0.0-0.0); Neutrophils # (A) 2.43 X 10*3/uL (1.80-7.70); Neutrophils % (A) 52.6 %; Platelet Count 243 X 10*3/uL (140-440); RBC 3.03 X 10*6/uL (4.10-5.20); RDW 15.4 % (11.5-14.5); WBC 4.61 X 10*3/uL (4.50-10.00)
[2021-07-26 11:47] LABS: African American GFR (CKD) 54.9 (60.0-200.0); Anion Gap 10.4 mmol/L (10.00-18.00); BUN/Creat Ratio 8.33 Ratio (12.00-20.00); Calcium 7.1 mg/dL (8.7-10.3); Carbon Dioxide 20.6 mmol/L (20.0-27.5); Non-African American GFR(CKD) 47.4 (60.0-200.0); Potassium 3.7 mmol/L (3.5-5.5)
--- NOTE | 2021-07-26 14:58 | P.PN ---
Subjective Progress Note Date: 07/26/21 CHIEF COMPLAINT: Abdominal pain HISTORY OF PRESENT ILLNESS: Patient continues to complain of a twisting-type sensation in her abdomen. She also is reporting more back pain today. She is having diarrhea-type bowel movements. She had been on MiraLAX. She is having flatus. Denies any nausea. She's sitting at bedside chair. She has been tachycardia. afebrile. WBC 4.6 when hemoglobin 9.7 creatinine 1.2 Patient seen and examined with Dr. moreno PHYSICAL EXAM: VITAL SIGNS: Reviewed. GENERAL: Well-developed in no acute distress. HEENT: No sclera icterus. Extraocular movements grossly intact. Moist buccal mucosa. Head is atraumatic, normocephalic. ABDOMEN: Soft. Nondistended. Diffuse tenderness Incision site clean dry and intact. CASIMIRO drain with a 30 mL serosanguineous output NEUROLOGIC: Alert and oriented. Cranial nerves II through XII grossly intact. ASSESSMENT: 1. Abdominal pain 2. Dehydration 3. Recent EGD revealing antral gastritis 4. Status post repair of incarcerated incisional hernia with mesh and lysis of adhesions on 07/08/2021 PLAN: -Check stool for C. diff -Advance diet to regular -Consult GI service for further evaluation abdominal pain -Continue supportive care Physician Bridge Maintenance Worker note has been reviewed by physician. Signing provider agrees with the documented findings, assessment, and plan of care. Objective - Vital Signs Vital signs: Vital Signs Temp 98.5 F 07/26/21 07:00 Pulse 111 H 07/26/21 07:00 Resp 18 07/26/21 07:00 BP 115/69 07/26/21 07:00 Pulse Ox 98 07/26/21 07:00 Intake & Output 07/25/21 07/26/21 07/26/21 18:59 06:59 18:59 Intake Total 118 1070 180 Balance 118 1070 180 Intake: Intake, IV Titration 950 Amount Sodium Chloride 0.9% 1, 900 000 ml @ 75 mls/hr IV . [id number] MARK Rx#:[id number] cefTRIAXone 1 gm In 50 Sodium Chloride 0.9% 50 ml @ 100 mls/hr IVPB Q24H MARK Rx#:[id number] Oral 118 120 180 Other: # Voids 3 1 # Bowel Movements 1 1 - Labs CBC & Chem 7: 07/26/21 07:01 07/26/21 07:01 Labs: Abnormal Lab Results - Last 24 Hours (Table) 07/26/21 07/26/21 Range/Units 07:01 07:01 RBC 3.03 L (4.10-5.20) X 10*6/uL Hgb 9.7 L (12.0-15.0) g/dL Hct 31.8 L (37.2-46.3) % MCV 105.0 H (80.0-97.0) fL MCHC 30.5 L (32.0-37.0) g/dL RDW 15.4 H (11.5-14.5) % Chloride 112 H (96-109) mmol/L Est GFR (CKD-EPI)AfAm 54.9 L (60.0-200.0) Est GFR (CKD-EPI)NonAf 47.4 L (60.0-200.0) BUN/Creatinine Ratio 8.33 L (12.00-20.00) Ratio Calcium 7.1 L (8.7-10.3) mg/dL Microbiology - Last 24 Hours (Table) 07/24/21 21:19 Urine Culture - Final Urine,Catheterized
--- NOTE | 2021-07-26 16:55 | P.PN ---
Subjective Progress Note Date: 07/26/21 This is a 66-year-old female with past medical history of recent incarcerated incisional hernia repair with mesh and lysis of adhesions on 07/08/2021, recently discharged home on 07/20/2021. Returned to hospital with similar presentation as on prior two visits, reporting ongoing "twisting mid epigastric pain radiating across bilateral total quadrants". Abdominal pain accompanied by nausea with no emesis. Reports most recent bowel movement yesterday, small. Denies bleeding or dark stools. Denies fever or chills. T-max 99.1, normal WBC.Hypertensive.CT abdomen/pelvis reporting postsurgical changes with no adverse change compared to recent exam. EKG sinus tachycardia, troponin 0.031, denies chest pain, palpitations. Hematology, coagulation and chemistry profiles unremarkable with the exception of MCV 104.1, creatinine 1.07. UA reported few WBC clumps, large leukocytes, negative nitrates, culture pending. Coronavirus not detected. 07/26/2021 abdominal pain unchanged. Yesterday patient complaining of constipation, small bowel movements, started on MiraLAX. Today having loose bowel movements, passing flatus. Nausea currently subsided, no emesis. Afebrile, normal WBC. Urine culture reported no growth after 18 hours. Hemoglobin decreased from 13 down to 9.7, platelets 243. Tachycardic, Creatinine 1.2. Denies chest pain, palpitations or shortness of breath. Objective - Vital Signs Vital signs: Vital Signs Temp 98.3 F 07/26/21 15:00 Pulse 111 H 07/26/21 15:00 Resp 16 07/26/21 15:00 BP 116/58 07/26/21 15:00 Pulse Ox 96 07/26/21 15:00 Intake & Output 07/25/21 07/26/21 07/26/21 18:59 06:59 18:59 Intake Total 118 1070 298 Output Total 50 Balance 118 1070 248 Intake: Intake, IV Titration 950 Amount Sodium Chloride 0.9% 1, 900 000 ml @ 75 mls/hr IV . [id number] MARK Rx#:[id number] cefTRIAXone 1 gm In 50 Sodium Chloride 0.9% 50 ml @ 100 mls/hr IVPB Q24H MARK Rx#:[id number] Oral 118 120 298 Output: Drainage 50 Abdomen 50 Other: # Voids 3 1 # Bowel Movements 1 1 - Exam VITAL SIGNS: [As above] GENERAL: Sitting up in bed, ongoing abdominal pain, hugging her upper abdomen Eyes: PERRL, EOMI, conjunctiva normal HENT: normocephalic, mucus membranes moist Neck: supple, no JVD Lungs: normal respiratory effort, no wheezes or rales CV: Regular rate and rhythm, no murmur. Peripheral pulses 2+ Abdomen: soft, nondistended, no organomegaly.Diffuse abdominal tenderness greatest in the mid epigastric radiating to right and left upper quadr ants,positive bowel sounds. CASIMIRO with minimal serousang drg. Skin: warm and dry. Neuro: Cranial nerves 2 through 12 grossly intact, no focal deficits - Labs CBC & Chem 7: 07/26/21 07:01 07/26/21 07:01 Labs: Abnormal Lab Results - Last 24 Hours (Table) 07/26/21 07/26/21 Range/Units 07:01 07:01 RBC 3.03 L (4.10-5.20) X 10*6/uL Hgb 9.7 L (12.0-15.0) g/dL Hct 31.8 L (37.2-46.3) % MCV 105.0 H (80.0-97.0) fL MCHC 30.5 L (32.0-37.0) g/dL RDW 15.4 H (11.5-14.5) % Chloride 112 H (96-109) mmol/L Est GFR (CKD-EPI)AfAm 54.9 L (60.0-200.0) Est GFR (CKD-EPI)NonAf 47.4 L (60.0-200.0) BUN/Creatinine Ratio 8.33 L (12.00-20.00) Ratio Calcium 7.1 L (8.7-10.3) mg/dL Microbiology - Last 24 Hours (Table) 07/24/21 21:19 Urine Culture - Final Urine,Catheterized Assessment and Plan Assessment: Unchanged epigastric abdominal pain status post surgery, readmission 3 post surgery Recent EGD reports mild antral gastritis, biopsies pending Recent incarcerated incisional hernia repair with mesh and lysis of adhesions, 07/08/2021 Post op Anemia CAD Hypertension Diabetes Melllitus Recent Acute Covid infection CKD stage 3 Memory impairment, history of Obesity, BMI 29.3 Plan: Continue on current medication regime ,monitoring and symptomatic treatment. Repeat hemoglobin secondary to significant decrease in 24 hours accompanied by tachycardia. Telemetry monitoring ordered. Pain management- follow closely with surgery. The impression and plan of care has been dictated as directed. : I performed a history and examination of this patient, discussed the same with the dictator. I agree with the dictator's note ,documented as a scribe. Any additional findings or plans will be noted.
[2021-07-26 17:16] LABS: HCT 39.1 % (34.0-46.0); HGB 11.5 gm/dL (11.4-16.0); Hypochromasia Marked; MCH 32.7 pg (25.0-35.0); MCHC 29.4 g/dL (31.0-37.0); Macrocytosis Marked; Mean Platelet Volume 7.5; Platelet Count 294 k/uL (150-450); RBC 3.52 m/uL (3.80-5.40); RDW 14.4 % (11.5-15.5); WBC 6.2 k/uL (3.8-10.6)
[2021-07-26 17:22] LABS: MCV 111.1 fL (80.0-100.0)
[2021-07-26] MEDS: traZODone HCL 100 MG TAB PO SCH ×2 (21:46→21:48)
[2021-07-26] MEDS: TOPIRAMATE 25 MG TAB PO SCH (21:46)
[2021-07-27] MEDS: HYDROmorphone 0.5 MG/0.5 ML SYRINGE IVP PRN (08:22)
[2021-07-27 09:17] LABS: HCT 30.7 % (37.2-46.3); HGB 9.3 g/dL (12.0-15.0); MCH 31.8 pg (27.0-32.0); MCHC 30.3 g/dL (32.0-37.0); MCV 105.1 fL (80.0-97.0); Mean Platelet Volume 9.8 fL (9.5-12.2); NRBC Per 100 WBC 0 /100 WBCS (0.0-0.0); Platelet Count 217 X 10*3/uL (140-440); RBC 2.92 X 10*6/uL (4.10-5.20); RDW 15.6 % (11.5-14.5); WBC 3.57 X 10*3/uL (4.50-10.00)
[2021-07-27 09:29] LABS: African American GFR (CKD) 45.6 (60.0-200.0); Anion Gap 10.4 mmol/L (10.00-18.00); BUN/Creat Ratio 8.71 Ratio (12.00-20.00); Blood Urea Nitrogen 12.2 mg/dL (9.0-27.0); Carbon Dioxide 18.6 mmol/L (20.0-27.5); Non-African American GFR(CKD) 39.3 (60.0-200.0)
[2021-07-27] MEDS ORDERED: ACETAMINOPHEN IV (For NPO) 1,000 MG in EMPTY BAG 1 BAG IVPB ONE (09:47)
[2021-07-27] MEDS ORDERED: MAGNESIUM SULFATE-D5W PMX 1 GM in DEXTROSE/WATER 1 100ML.BAG IVPB ONE (09:47)
[2021-07-27 10:16] LABS: Basophils # (A) 0.03 X 10*3/uL (0.00-0.10); Basophils % (A) 0.8 %; Eosinophils # (A) 0.17 X 10*3/uL (0.04-0.35); Eosinophils % (A) 4.8 %; Immature Grans, Automated 0.3 %; Lymphocytes # (A) 1.15 X 10*3/uL (0.90-5.00); Lymphocytes % (A) 32.2 %; Monocytes # (A) 0.41 X 10*3/uL (0.20-1.00); Monocytes % (A) 11.5 %; Neutrophils % (A) 50.4 %
[2021-07-27] MEDS: CHOLECALCIFEROL 25 MCG (1000 IU) TABLET PO SCH (11:00)
[2021-07-27] MEDS: PANTOPRAZOLE 40 MG TABLET PO SCH (11:01)
[2021-07-27] MEDS: hydrALAZINE HCL 25 MG TAB PO SCH (11:02)
[2021-07-27] MEDS: SIMETHICONE 80 MG CHEWABLE PO SCH ×4 (11:02→19:25)
[2021-07-27] MEDS: DICYCLOMINE 10 MG CAP PO SCH ×3 (11:03→19:25)
[2021-07-27] MEDS: GABAPENTIN 100 MG CAP PO SCH ×2 (11:03→19:25)
[2021-07-27] MEDS: ENOXAPARIN 40 MG/0.4 ML SYRINGE SQ SCH (11:04)
[2021-07-27] MEDS: LOSARTAN 25 MG TAB PO SCH (11:04)
[2021-07-27] MEDS: polyethylene glycoL 3350 17 GM POWD.PACK PO SCH ×2 (11:11→19:11)
--- NOTE | 2021-07-27 11:51 | P.PN ---
Subjective Progress Note Date: 07/27/21 This is a 66-year-old female with past medical history of recent incarcerated incisional hernia repair with mesh and lysis of adhesions on 07/08/2021, recently discharged home on 07/20/2021. Returned to hospital with similar presentation as on prior two visits, reporting ongoing "twisting mid epigastric pain radiating across bilateral total quadrants". Abdominal pain accompanied by nausea with no emesis. Reports most recent bowel movement yesterday, small. Denies bleeding or dark stools. Denies fever or chills. T-max 99.1, normal WBC.Hypertensive.CT abdomen/pelvis reporting postsurgical changes with no adverse change compared to recent exam. EKG sinus tachycardia, troponin 0.031, denies chest pain, palpitations. Hematology, coagulation and chemistry profiles unremarkable with the exception of MCV 104.1, creatinine 1.07. UA reported few WBC clumps, large leukocytes, negative nitrates, culture pending. Coronavirus not detected. 07/26/2021 abdominal pain unchanged. Yesterday patient complaining of constipation, small bowel movements, started on MiraLAX. Today having loose bowel movements, passing flatus. Nausea currently subsided, no emesis. Afebrile, normal WBC. Urine culture reported no growth after 18 hours. Hemoglobin decreased from 13 down to 9.7, platelets 243. Tachycardic, Creatinine 1.2. Denies chest pain, palpitations or shortness of breath. 07/27/21 CASIMIRO discontinued last night, abdominal pain significantly improved. Complaining of migraine headache which patient has history of. Repeat hemoglobin this night 11.5, this morning 9.3, platelets 217. No signs or symptoms of bleeding. Tachycardia improving, currently low 100s. Maintaining O2 sats in the high 90s on room air. Afebrile. GI consult in place, recommendations pending. Objective - Vital Signs Vital signs: Vital Signs Temp 98.6 F 07/27/21 07:00 Pulse 104 H 07/27/21 11:10 Resp 18 07/27/21 07:00 BP 142/81 07/27/21 07:00 Pulse Ox 97 07/27/21 07:00 Intake & Output 07/26/21 07/27/21 07/27/21 18:59 06:59 18:59 Intake Total 298 Output Total 50 Balance 248 Intake: Oral 298 Output: Drainage 50 Abdomen 50 Other: # Voids 1 - Exam VITAL SIGNS: [As above] GENERAL: Sitting up in bed, currently with migraine headache. Eyes: PERRL, EOMI, conjunctiva normal HENT: normocephalic, mucus membranes moist Neck: supple, no JVD Lungs: normal respiratory effort, no wheezes or rales CV: Regular rate and rhythm, no murmur. Peripheral pulses 2+ Abdomen: soft, nondistended, no organomegaly.Diffuse abdominal tenderness,positive bowel sounds. Skin: warm and dry. Neuro: Cranial nerves 2 through 12 grossly intact, no focal deficits - Labs CBC & Chem 7: 07/27/21 05:59 07/27/21 05:59 Labs: Abnormal Lab Results - Last 24 Hours (Table) 07/26/21 07/26/21 07/27/21 Range/Units 07:01 17:03 05:59 WBC 3.57 L (4.50-10.00) X 10*3/uL RBC 3.52 L 2.92 L (3.80-5.40) m/uL Hgb 9.3 L (12.0-15.0) g/dL Hct 30.7 L (37.2-46.3) % MCV 111.1 H D 105.1 H (80.0-100.0) fL MCHC 29.4 L 30.3 L (31.0-37.0) g/dL RDW 15.6 H (11.5-14.5) % Macrocytosis Marked A Chloride 112 H (96-109) mmol/L Carbon Dioxide (20.0-27.5) mmol/L Est GFR (CKD-EPI)AfAm 54.9 L (60.0-200.0) Est GFR (CKD-EPI)NonAf 47.4 L (60.0-200.0) BUN/Creatinine Ratio 8.33 L (12.00-20.00) Ratio Calcium 7.1 L (8.7-10.3) mg/dL 07/27/21 Range/Units 05:59 WBC (4.50-10.00) X 10*3/uL RBC (3.80-5.40) m/uL Hgb (12.0-15.0) g/dL Hct (37.2-46.3) % MCV (80.0-100.0) fL MCHC (31.0-37.0) g/dL RDW (11.5-14.5) % Macrocytosis Chloride 113 H (96-109) mmol/L Carbon Dioxide 18.6 L (20.0-27.5) mmol/L Est GFR (CKD-EPI)AfAm 45.6 L (60.0-200.0) Est GFR (CKD-EPI)NonAf 39.3 L (60.0-200.0) BUN/Creatinine Ratio 8.71 L (12.00-20.00) Ratio Calcium 7.0 L (8.7-10.3) mg/dL Microbiology - Last 24 Hours (Table) 07/24/21 21:19 Urine Culture - Final Urine,Catheterized Assessment and Plan Assessment: Unchanged epigastric abdominal pain status post surgery, readmission 3 post surgery Recent EGD reports mild antral gastritis, biopsies pending Recent incarcerated incisional hernia repair with mesh and lysis of adhesions, 07/08/2021 Post op Anemia Cephalgia in a patient with history of migraines CAD Hypertension Diabetes Melllitus Recent Acute Covid infection CKD stage 3 Memory impairment, history of Obesity, BMI 29.3 Plan: Continue on current medication regime ,monitoring and symptomatic treatment. Migraine cocktail. GI consult in place, recommendations pending. Discharge planning in progress for tomorrow to subacute rehab pending final DC recommendations and clearance per consults. The impression and plan of care has been dictated as directed. : I performed a history and examination of this patient, discussed the same with the dictator. I agree with the dictator's note ,documented as a scribe. Any additional findings or plans will be noted.
--- NOTE | 2021-07-27 12:46 | P.CONS ---
History of Present Illness - Reason for Consult Consult date: 07/27/21 Abdominal pain Requesting physician: Reji Rangel - Chief Complaint Abdominal pain - History of Present Illness This is 66-year-old female who was admitted to the emergency room on 07/15/2021 with complaints of epigastric abdominal pain status post recent repair of inci sional hernia and on 06/25 1022 lysis of adhesions. This is the patient's second admission since her surgery with the same complaints of upper abdominal pain. During her last admission she underwent an EGD on 07/18/[address] Rangel findings of mild antral gastritis. The patient is also complaining of frequent loose stools however is noted from her medical records that she has a fluctuation between constipation and loose stools. She had currently been on MiraLAX during this hospitalization. She states at times she may have up to 7 or 8 bowel movements a day. Currently she is complaining of a severe migraine headache which she states she has frequent migraines. Today she states abd ominal pain has improved some. Apparently yesterday they did remove a CASIMIRO drain and since then pain has improved some. She has incision with mohit. She currently denies any nausea or vomiting, fevers or chills, and states bowel movements have been regular. WBC 3.5 hemoglobin 9.3 hematocrit 30 platelet count 217,000. Patient is also noted to have short-term memory disorder. Review of Systems REVIEW OF SYSTEMS: CARDIOPULMONARY: No chest pain or shortness of breath. Gastrointestinal: Epigastric and right upper quadrant pain, twisting, now improved. No nausea or vomiting. No hematemesis, coffee-ground emesis. No rectal bleeding, or melena. Loose multiple stools. GENITOURINARY: No dysuria or hematuria. MUSCULOSKELETAL: Reports normal range of motion., Joint pain. SKIN: No rashes. No jaundice. ENDOCRINE: No chills, fevers. No excessive weight gain or loss. No polydipsia or polyuria. PSYCHIATRIC: Unremarkable. NEUROLOGY: No change in mental status. Migraine headache ENT: Vision unremarkable. CONSTITUTIONAL: No recent weight loss. No fever, chills, night sweats. 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 bowel resection for obstruction, amalia cataracts, Past Anesthesia/Blood Transfusion Reactions: No Reported Reaction Past Psychological History: No Psychological Hx Reported Additional Psychological History / Comment(s): short term memory loss Smoking Status: Former smoker Past Alcohol Use History: Rare Additional Past Alcohol Use History / Comment(s): quit smoking 20 yrs ago, smoked for 20 yrs Past Drug Use History: None Reported - Past Family History Mother Family Medical History: Cancer, CVA/TIA, Pulmonary Embolus Additional Family Medical History / Comment(s): breast cancer Father Family Medical History: CVA/TIA, Myocardial Infarction (MD) Additional Family Medical History / Comment(s): . Brother(s) Family Medical History: Congestive Heart Failure (CHF) Additional Family Medical History / Comment(s): CABG Medications and Allergies Home Medications Medication Instructions Recorded Confirmed Type Gabapentin [Neurontin] 100 mg PO BID 09/18/20 07/24/21 History Aspirin 81 mg PO DAILY 60 Days #60 chew 09/20/20 07/24/21 Rx Losartan [Cozaar] 25 mg PO DAILY 30 Days #30 tab 09/20/20 07/24/21 Rx Dicyclomine [Bentyl] 10 mg PO TID 7 Days #21 capsule 07/02/21 07/24/21 Rx Diclofenac Sodium Gel [Voltaren 4 gm TOPICAL QID PRN 07/04/21 07/24/21 History Gel] Metoprolol Succinate (ER) [Toprol 25 mg PO DAILY 07/04/21 07/24/21 History XL] Omeprazole [PriLOSEC] 40 mg PO DAILY 07/04/21 07/24/21 History Topiramate [Topamax] 50 mg PO HS 07/04/21 07/24/21 History traZODone HCL [Desyrel] 100 mg PO HS 07/04/21 07/24/21 History Acetaminophen Tab [Tylenol] 650 mg PO Q6HR PRN tab 07/11/21 07/24/21 Rx Ascorbic Acid [Vitamin C] 500 mg PO BID tab 07/11/21 07/24/21 Rx Cholecalciferol [Vitamin D3 (25 100 mcg PO DAILY tablet 07/11/21 07/24/21 Rx Mcg = 1000 Iu)] Zinc Sulfate [Orazinc] 220 mg PO DAILY cap 07/11/21 07/24/21 Rx traMADol HCL [Ultram] 50 mg PO Q6HR PRN 3 Days #12 tab 07/11/21 07/24/21 Rx predniSONE See Taper PO DIRECTED 07/15/21 07/24/21 History amLODIPine [Norvasc] 5 mg PO DAILY #30 tab 07/20/21 07/24/21 Rx [id number]-[id number] [id number] 2 tab PO Q4HR PRN 07/24/21 07/24/21 History [Excedrin] Meloxicam [Mobic] 7.5 mg PO DAILY PRN 07/24/21 07/24/21 History Allergies Allergy/AdvReac Type Severity Reaction Status Date / Time morphine Allergy Rash/Hives Verified 07/24/21 21:28 sulfamethoxazole Allergy ABD PAIN Verified 07/24/21 21:28 [From Bactrim] Physical Exam Vitals: Vital Signs Temp Pulse Pulse Resp BP Pulse Ox 07/27/21 11:10 104 H 07/27/21 07:00 98.6 F 103 H 18 142/81 97 07/27/21 02:05 98.3 F 94 16 120/67 95 07/26/21 19:41 98.1 F 99 17 123/64 96 07/26/21 15:00 98.3 F 111 H 16 116/58 96 07/26/21 14:00 111 H 16 Intake and Output 07/26/21 07/27/21 07/27/21 22:59 06:59 14:59 Other: # Voids 1 General appearance: The patient is alert, oriented, appears in no acute distress. HET: Head is normocephalic and atraumatic. Conjunctiva pink. Sclera anicteric. Neck: Supple without lymphadenopathy. Trachea midline. Heart: S1 S2. Regular rate and rhythm. Lungs: Clear to auscultation. Abdomen: Soft, mild tenderness near her surgical incision and CASIMIRO drain site, nondistended with bowel sounds. Abdomen with incision well approximated with mohit, no drainage or erythema noted. No guarding or rigidity. Skin: No rashes. No jaundice. Extremities: Normal skin color and turgor. No pedal edema. Neurological: No focal deficits. Alert and oriented x3. Results CBC & Chem 7: 07/27/21 05:59 07/27/21 05:59 Labs: Abnormal Lab Results - Last 24 Hours (Table) 07/26/21 07/27/21 07/27/21 Range/Units 17:03 05:59 05:59 WBC 3.57 L (4.50-10.00) X 10*3/uL RBC 3.52 L 2.92 L (3.80-5.40) m/uL Hgb 9.3 L (12.0-15.0) g/dL Hct 30.7 L (37.2-46.3) % MCV 111.1 H D 105.1 H (80.0-100.0) fL MCHC 29.4 L 30.3 L (31.0-37.0) g/dL RDW 15.6 H (11.5-14.5) % Macrocytosis Marked A Chloride 113 H (96-109) mmol/L Carbon Dioxide 18.6 L (20.0-27.5) mmol/L Est GFR (CKD-EPI)AfAm 45.6 L (60.0-200.0) Est GFR (CKD-EPI)NonAf 39.3 L (60.0-200.0) BUN/Creatinine Ratio 8.71 L (12.00-20.00) Ratio Calcium 7.0 L (8.7-10.3) mg/dL Microbiology - Last 24 Hours (Table) 07/24/21 21:19 Urine Culture - Final Urine,Catheterized CT scan - abdomen: report reviewed (CT abdomen and pelvis shows postsurgical changes. No complicating process. No adverse change compared to recent exam.) Assessment and Plan (1) Abdominal pain Narrative/Plan: 66-year-old female with multiple comorbidities who was recently admitted again for abdominal pain. This is her second admission postop after undergoing repair for incisional hernia and lysis of adhesions with Dr. Rangel on 07/08/20. Apparently the complaints of pain have been similar described as in her epigastric and right upper quadrant region that something is twisting. She's had a CT of the abdomen and pelvis on this admission and past showing postsurgical changes however no acute or complicating processes seen. Patient had at the drain removed yesterday and since then states the pain has improved. She's not been febrile, she denies any nausea or vomiting. She also underwent an EGD with Dr. Rangel and during her last admission showing some mild antral gastritis. Current Visit: No Status: Acute Code(s): R10.9 - UNSPECIFIED ABDOMINAL PAIN SNOMED Code(s): 08651700 Plan: 1. Continue symptomatic and supportive care 2. Diet as tolerated 3. Recommend discontinuing MiraLAX as patient states she's having multiple loose bowel movements a day. Continue dicyclomine 4. No plans on endoscopic evaluation as she recently underwent an EGD 5. Recommend outpatient follow-up regarding diarrhea and constipation 2 for this consultation, we will continue to follow. Dr. Pratibha Reeves I agree with the dictator's note, documented as a scribe by Lisandra Grigsby.
--- NOTE | 2021-07-27 15:37 | P.PN ---
Subjective Progress Note Date: 07/27/21 CHIEF COMPLAINT: Abdominal pain HISTORY OF PRESENT ILLNESS: Patient complaining of migraine headache today. Patient also reported some abdominal pain. Slightly better then admission. Her CASIMIRO drain came out yesterday. Denies any nausea or vomiting. She is having diarrhea. Her MiraLAX has been stopped. C. diff was unable to be collected since patient is on MiraLAX. She has been seen by GI service. Afebrile. WBC 3.57 hemoglobin 9.3 Patient seen and examined with Dr. moreno PHYSICAL EXAM: VITAL SIGNS: Reviewed. GENERAL: Well-developed in no acute distress. HEENT: No sclera icterus. Extraocular movements grossly intact. Moist buccal mucosa. Head is atraumatic, normocephalic. ABDOMEN: Soft. Nondistended. Incision site clean dry and intact NEUROLOGIC: Alert and oriented. Cranial nerves II through XII grossly intact. ASSESSMENT: 1. Abdominal pain 2. Dehydration 3. Recent EGD revealing antral gastritis 4. Status post repair of incarcerated incisional hernia with mesh and lysis of adhesions on 07/08/2021 PLAN: -Continue supportive care -No surgical intervention planned -Migraine headache treatment per medicine service Physician Row Boss Hoeing note has been reviewed by physician. Signing provider agrees with the documented findings, assessment, and plan of care. Objective - Vital Signs Vital signs: Vital Signs Temp 98.1 F 07/27/21 13:51 Pulse 116 H 07/27/21 13:51 Resp 18 07/27/21 13:51 BP 150/66 07/27/21 13:51 Pulse Ox 97 07/27/21 13:51 Intake & Output 07/26/21 07/27/21 07/27/21 18:59 06:59 18:59 Intake Total 298 100 Output Total 50 Balance 248 100 Intake: Oral 298 100 Output: Drainage 50 Abdomen 50 Other: # Voids 2 # Bowel Movements 1 - Labs CBC & Chem 7: 07/27/21 05:59 07/27/21 05:59 Labs: Abnormal Lab Results - Last 24 Hours (Table) 07/26/21 07/27/21 07/27/21 Range/Units 17:03 05:59 05:59 WBC 3.57 L (4.50-10.00) X 10*3/uL RBC 3.52 L 2.92 L (3.80-5.40) m/uL Hgb 9.3 L (12.0-15.0) g/dL Hct 30.7 L (37.2-46.3) % MCV 111.1 H D 105.1 H (80.0-100.0) fL MCHC 29.4 L 30.3 L (31.0-37.0) g/dL RDW 15.6 H (11.5-14.5) % Macrocytosis Marked A Chloride 113 H (96-109) mmol/L Carbon Dioxide 18.6 L (20.0-27.5) mmol/L Est GFR (CKD-EPI)AfAm 45.6 L (60.0-200.0) Est GFR (CKD-EPI)NonAf 39.3 L (60.0-200.0) BUN/Creatinine Ratio 8.71 L (12.00-20.00) Ratio Calcium 7.0 L (8.7-10.3) mg/dL Microbiology - Last 24 Hours (Table) 07/24/21 21:19 Urine Culture - Final Urine,Catheterized
[2021-07-27] MEDS: hydrALAZINE HCL 50 MG TAB PO SCH ×2 (16:01→19:25)
[2021-07-27] MEDS: METOPROLOL SUCCINATE (ER) 25 MG TAB.ER.24H PO SCH (16:01)
[2021-07-27] MEDS: HYDROcodone/APAP 5-325MG 1 EACH TAB PO PRN ×2 (16:07→22:51)
[2021-07-27] MEDS: TOPIRAMATE 25 MG TAB PO SCH (19:25)
[2021-07-28] MEDS: HYDROcodone/APAP 5-325MG 1 EACH TAB PO PRN ×3 (03:17→19:38)
[2021-07-28] MEDS: ENOXAPARIN 40 MG/0.4 ML SYRINGE SQ SCH (09:24)
[2021-07-28] MEDS: CHOLECALCIFEROL 25 MCG (1000 IU) TABLET PO SCH (09:26)
[2021-07-28] MEDS: DICYCLOMINE 10 MG CAP PO SCH ×3 (09:26→19:37)
[2021-07-28] MEDS: GABAPENTIN 100 MG CAP PO SCH ×2 (09:27→19:37)
[2021-07-28] MEDS: hydrALAZINE HCL 50 MG TAB PO SCH ×3 (09:27→19:37)
[2021-07-28] MEDS: METOPROLOL SUCCINATE (ER) 25 MG TAB.ER.24H PO SCH (09:27)
[2021-07-28] MEDS: SIMETHICONE 80 MG CHEWABLE PO SCH ×4 (09:27→19:38)
[2021-07-28] MEDS: PANTOPRAZOLE 40 MG TABLET PO SCH (09:27)
[2021-07-28 10:36] LABS: Basophils % (A) 1 %; Eosinophils # (A) 0.1 k/uL (0-0.7); Eosinophils % (A) 4 %; HGB 10.1 gm/dL (11.4-16.0); Hypochromasia Moderate; Lymphocytes # (A) 0.6 k/uL (1.0-4.8); Lymphocytes % (A) 19 %; MCH 33.6 pg (25.0-35.0); MCHC 31.4 g/dL (31.0-37.0); MCV 106.8 fL (80.0-100.0); Macrocytosis Moderate; Mean Platelet Volume 7.7; Monocytes # (A) 0.2 k/uL (0-1.0); Monocytes % (A) 7 %; Neutrophils % (A) 68 %; Platelet Count 247 k/uL (150-450); RDW 14.5 % (11.5-15.5); WBC 2.9 k/uL (3.8-10.6)
[2021-07-28 10:43] VITALS: BMI 29.2
--- NOTE | 2021-07-28 11:44 | P.DS ---
Providers Date of admission: 07/27/21 11:21 Expected date of discharge: 07/28/21 Attending physician: Dmitry Lewis MD Consults: 07/24/21 23:09 Consult Physician Routine Consulting Provider: Reji Rangel Consult Reason/Comments: Postsurgical abdominal pain, dehydration Do you want consulting provider notified?: Yes 07/26/21 11:50 Consult Physician Routine Consulting Provider: Ashlie Reeves Consult Reason/Comments: abdominal pain Do you want consulting provider notified?: Yes Primary care physician: Dmitry Lewis MD Hospital Course: Final Diagnoses: Unchanged epigastric abdominal pain status post surgery, readmission 3 post surgery Recent EGD reports mild antral gastritis, biopsies pending Recent incarcerated incisional hernia repair with mesh and lysis of adhesions, 07/08/2021 Post op Anemia Cephalgia in a patient with history of migraines CAD Hypertension Diabetes Melllitus Recent Acute Covid infection CKD stage 3 Memory impairment, history of Obesity, BMI 29.3 Diarrhea and constipation, possible chronic IBS, further follow-up outpatient with Dr. Ashlie Reeves, GI. Hospital course:This is a 66-year-old female with past medical history of recent incarcerated incisional hernia repair with mesh and lysis of adhesions on 07/08/2021, recently discharged home on 07/20/2021. Returned to hospital with similar presentation as on prior two visits, reporting ongoing "twisting mid epigastric pain radiating across bilateral total quadrants". Abdominal pain accompanied by nausea with no emesis. Reports most recent bowel movement yesterday, small. Denies bleeding or dark stools. Denies fever or chills. T- max 99.1, normal WBC.Hypertensive.CT abdomen/pelvis reporting postsurgical changes with no adverse change compared to recent exam. EKG sinus tachycardia, troponin 0.031, denies chest pain, palpitations. Hematology, coagulation and chemistry profiles unremarkable with the exception of MCV 104.1, creatinine 1.07. UA reported few WBC clumps, large leukocytes, negative nitrates, culture pending. Coronavirus not detected. 07/26/2021 abdominal pain unchanged. Yesterday patient complaining of constipation, small bowel movements, started on MiraLAX. Today having loose bowel movements, passing flatus. Nausea currently subsided, no emesis. Afebrile, normal WBC. Urine culture reported no growth after 18 hours. Hemoglobin decreased from 13 down to 9.7, platelets 243. Tachycardic, Creatinine 1.2. Denies chest pain, palpitations or shortness of breath. 07/27/21 CASIMIRO discontinued last night, abdominal pain significantly improved. Complaining of migraine headache which patient has history of. Repeat hemoglobin this night 11.5, this morning 9.3, platelets 217. No signs or symptoms of bleeding. Tachycardia improving, currently low 100s. Maintaining O2 sats in the high 90s on room air. Afebrile. GI consult in place, recommendations pending. Evaluated by GI with recommendations noted and appreciated. Significant clinical improvement. Denies abdominal pain, headache resolved. Unfortunately before diet could be changed, patient was eating hartley, cheese, this a.m. Diet downgraded to a "BRAT" diet, advanced to soft as tolerated, avoiding spicy, greasy, fried foods. Patient will be discharged to [facility] subacute rehab today in a stable condition with guarded prognosis, pending final DC recommendations including pain management and clearance per surgery. The impression and plan of care has been dictated as directed. : I performed a history and examination of this patient, discussed the same with the dictator. I agree with the dictator's note ,documented as a scribe. Any additional findings or plans will be noted. Patient Condition at Discharge: Stable Plan - Discharge Summary Discharge Rx Participant: No New Discharge Prescriptions: No Action Dicyclomine [Bentyl] 10 mg PO TID 7 Days #21 capsule Diclofenac Sodium Gel [Voltaren Gel] 4 gm TOPICAL QID PRN PRN Reason: Pain Metoprolol Succinate (ER) [Toprol XL] 25 mg PO DAILY Omeprazole [PriLOSEC] 40 mg PO DAILY Topiramate [Topamax] 50 mg PO HS traZODone HCL [Desyrel] 100 mg PO HS Zinc Sulfate [Orazinc] 220 mg PO DAILY cap Acetaminophen Tab [Tylenol] 650 mg PO Q6HR PRN tab PRN Reason: Fever and/ or MILD Pain Cholecalciferol [Vitamin D3 (25 Mcg = 1000 Iu)] 100 mcg PO DAILY tablet predniSONE See Taper PO DIRECTED [id number] [Excedrin] 2 tab PO Q4HR PRN PRN Reason: Pain Meloxicam [Mobic] 7.5 mg PO DAILY PRN PRN Reason: Pain Gabapentin [Neurontin] 100 mg PO BID Aspirin 81 mg PO DAILY 60 Days #60 chew Losartan [Cozaar] 25 mg PO DAILY 30 Days #30 tab Ascorbic Acid [Vitamin C] 500 mg PO BID tab traMADol HCL [Ultram] 50 mg PO Q6HR PRN 3 Days #12 tab PRN Reason: Pain amLODIPine [Norvasc] 5 mg PO DAILY #30 tab Discharge Medication List Gabapentin [Neurontin] 100 mg PO BID 09/18/20 [History] Aspirin 81 mg PO DAILY 60 Days #60 chew 09/20/20 [Rx] Losartan [Cozaar] 25 mg PO DAILY 30 Days #30 tab 09/20/20 [Rx] Dicyclomine [Bentyl] 10 mg PO TID 7 Days #21 capsule 07/02/21 [Rx] Diclofenac Sodium Gel [Voltaren Gel] 4 gm TOPICAL QID PRN 07/04/21 [History] Metoprolol Succinate (ER) [Toprol XL] 25 mg PO DAILY 07/04/21 [History] Omeprazole [PriLOSEC] 40 mg PO DAILY 07/04/21 [History] Topiramate [Topamax] 50 mg PO HS 07/04/21 [History] traZODone HCL [Desyrel] 100 mg PO HS 07/04/21 [History] Acetaminophen Tab [Tylenol] 650 mg PO Q6HR PRN tab 07/11/21 [Rx] Ascorbic Acid [Vitamin C] 500 mg PO BID tab 07/11/21 [Rx] Cholecalciferol [Vitamin D3 (25 Mcg = 1000 Iu)] 100 mcg PO DAILY tablet 07/11/21 [Rx] Zinc Sulfate [Orazinc] 220 mg PO DAILY cap 07/11/21 [Rx] traMADol HCL [Ultram] 50 mg PO Q6HR PRN 3 Days #12 tab 07/11/21 [Rx] predniSONE See Taper PO DIRECTED 07/15/21 [History] amLODIPine [Norvasc] 5 mg PO DAILY #30 tab 07/20/21 [Rx] Sszzlcm-Yudd-Oeih [id number] [Excedrin] 2 tab PO Q4HR PRN 07/24/21 [History] Meloxicam [Mobic] 7.5 mg PO DAILY PRN 07/24/21 [History] Follow up Appointment(s)/Referral(s): Dmitry Lewis MD [Primary Care Provider] - 1 Week (After discharge from subacute rehab) Ashlie Reeves MD [STAFF PHYSICIAN] - 2 Weeks Activity/Diet/Wound Care/Special Instructions: Aminah PERRY pain management as per surgery. Diet: BRAT DIET , advance to soft, with no spicy, greasy, fried foods cbc,bmp in 3 days Discharge Disposition: TRANSFER TO SNF/ECF
--- NOTE | 2021-07-28 13:33 | P.PN ---
Subjective Progress Note Date: 07/28/21 CHIEF COMPLAINT: Abdominal pain HISTORY OF PRESENT ILLNESS: Patient complaining of increase abdominal pain again today. She describes the pain is twisting. She is upset and continues to states she just does not feel right. She has been tachycardic. Afebrile. White count is 2.9 hemoglobin 10.1. CASIMIRO drain came out 2 days ago. Patient seen and examined with Dr. moreno PHYSICAL EXAM: VITAL SIGNS: Reviewed. GENERAL: Well-developed in no acute distress. HEENT: No sclera icterus. Extraocular movements grossly intact. Moist buccal mucosa. Head is atraumatic, normocephalic. ABDOMEN: Soft. Nondistended. Incision site clean dry and intact. CASIMIRO drain sites some mild erythema noted. Diffuse Tenderness with palpation of the abdomen especially right upper quadrant. NEUROLOGIC: Alert and oriented. Cranial nerves II through XII grossly intact. ASSESSMENT: 1. Abdominal pain 2. Dehydration 3. Recent EGD revealing antral gastritis 4. Status post repair of incarcerated incisional hernia with mesh and lysis of adhesions on 07/08/2021 PLAN: -Check computed tomography scan abdomen and pelvis with oral and IV contrast due to increased abdominal pain -Continue supportive care Physician Housekeeper Head note has been reviewed by physician. Signing provider agrees with the documented findings, assessment, and plan of care. Objective - Vital Signs Vital signs: Vital Signs Temp 97.5 F L 07/28/21 07:00 Pulse 84 07/28/21 09:29 Resp 18 07/28/21 07:00 BP 132/79 07/28/21 07:00 Pulse Ox 94 L 07/28/21 07:00 Intake & Output 07/27/21 07/28/21 07/28/21 18:59 06:59 18:59 Intake Total 100 Balance 100 Weight 95.254 kg Intake: Oral 100 Other: # Voids 2 2 # Bowel Movements 1 - Labs CBC & Chem 7: 07/28/21 10:14 07/27/21 05:59 Labs: Abnormal Lab Results - Last 24 Hours (Table) 07/28/21 Range/Units 10:14 WBC 2.9 L (3.8-10.6) k/uL RBC 3.00 L (3.80-5.40) m/uL Hgb 10.1 L (11.4-16.0) gm/dL Hct 32.0 L (34.0-46.0) % MCV 106.8 H (80.0-100.0) fL Lymphocytes # 0.6 L (1.0-4.8) k/uL
[2021-07-28] MEDS: IOPAMIDOL CONTRAST (ORAL USE) VIAL PO PRN ×2 (15:41→16:32)
--- NOTE | 2021-07-28 16:06 | P.PN ---
Subjective Progress Note Date: 07/28/21 Principal diagnosis: Abdominal pain This 66-year-old female who was seen for abdominal pain. Patient was status post hernia repair. Yesterday her CASIMIRO drain was removed and she has had improvement in the abdominal pain which he stated was in her right upper quadrant epigastric region. She's had no nausea or vomiting. Complaints are migraine headache. It is for discharge to [facility] today. Objective - Vital Signs Vital signs: Vital Signs Temp 97.5 F L 07/28/21 07:00 Pulse 84 07/28/21 09:29 Resp 18 07/28/21 07:00 BP 132/79 07/28/21 07:00 Pulse Ox 94 L 07/28/21 07:00 Intake & Output 07/27/21 07/28/21 07/28/21 18:59 06:59 18:59 Intake Total 100 Balance 100 Weight 95.254 kg Intake: Oral 100 Other: # Voids 2 2 # Bowel Movements 1 - Exam General appearance: The patient is alert, oriented, appears in no acute distress. HET: Head is normocephalic and atraumatic. Conjunctiva pink. Sclera anicteric. Neck: Supple without lymphadenopathy. Abdomen: Soft, nontender, nondistended with bowel sounds. No guarding or rigidity. Extremities: Normal skin color and turgor. No pedal edema Skin: No rashes, no jaundice Neurological: No focal deficits. Alert and oriented -3. - Labs CBC & Chem 7: 07/28/21 10:14 07/27/21 05:59 Labs: Abnormal Lab Results - Last 24 Hours (Table) 07/28/21 Range/Units 10:14 WBC 2.9 L (3.8-10.6) k/uL RBC 3.00 L (3.80-5.40) m/uL Hgb 10.1 L (11.4-16.0) gm/dL Hct 32.0 L (34.0-46.0) % MCV 106.8 H (80.0-100.0) fL Lymphocytes # 0.6 L (1.0-4.8) k/uL Assessment and Plan (1) Abdominal pain Narrative/Plan: 66-year-old female with multiple comorbidities who was recently admitted again for abdominal pain. This is her second admission postop after undergoing repair for incisional hernia and lysis of adhesions with Dr. Rangel on 07/08/20. Apparently the complaints of pain have been similar described as in her ep igastric and right upper quadrant region that something is twisting. She's had a CT of the abdomen and pelvis on this admission and past showing postsurgical changes however no acute or complicating processes seen. Patient had at the drain removed yesterday and since then states the pain has improved. She's not been febrile, she denies any nausea or vomiting. She also underwent an EGD with Dr. Rangel and during her last admission showing some mild antral gastritis. Current Visit: No Status: Acute Code(s): R10.9 - UNSPECIFIED ABDOMINAL PAIN SNOMED Code(s): 04057540 Plan: 1. Continue symptomatic and supportive care 2. Diet as tolerated 3. Continue dicyclomine as needed 4. No plans on endoscopic evaluation as she recently underwent an EGD 5. Recommend outpatient follow-up regarding diarrhea and constipation, this was discussed with the patient's on the phone. Thank you for this consultation, we will sign off. Dr. Pratibha eReves I agree with the dictator's note, documented as a scribe by Lisandra Grigsby.
[2021-07-28] MEDS: polyethylene glycoL 3350 17 GM POWD.PACK PO SCH (16:34)
--- NOTE | 2021-07-28 17:31 | CT ---
EXAMINATION TYPE: CT abdomen pelvis w con CT DLP: 1142.90 mGycm, Automated exposure control for dose reduction was used. DATE OF EXAM: 07/28/2021 5:15 PM COMPARISON: CT abdomen pelvis most recent from 2021 CLINICAL INDICATION:Female, 66 years old with history of abdominal pain; Post surgical pain, dehydrat ion TECHNIQUE: Standard CT of the abdomen and pelvis following the administration of 100 cc of Isovue 3 00 IV contrast material and oral contrast. Coronal and sagittal reformats were performed. FINDINGS: LOWER CHEST: Unremarkable ABDOMEN LIVER: Unremarkable GALLBLADDER AND BILE DUCTS: The gallbladder is surgically absent. PANCREAS: Unremarkable. SPLEEN: Unremarkable. ADRENAL GLANDS: Unremarkable. KIDNEYS AND URETERS: No evidence of hydronephrosis or renal calculus. The ureters are unremarkable. Left renal cyst measuring up to 3.1 cm PELVIS BLADDER: Unremarkable REPRODUCTIVE: Unremarkable. ABDOMEN & PELVIS STOMACH AND BOWEL: Postsurgical changes to the gastroesophageal junction and surgical sutures seen wi thin the mid abdomen on. No evidence of organizing fluid collection or free air. No evidence of bowel obstruction. PERITONEUM: No evidence of pneumoperitoneum or free fluid. VASCULATURE: No evidence of aortic aneurysm. MUSCULOSKELETAL: Mild disc degeneration changes are present throughout the thoracolumbar spine. LYMPH NODES: No gross evidence for lymphadenopathy. SOFT TISSUE/ABDOMINAL WALL: Abdominal wall postsurgical changes are present with skin mohit in plac e. Foci of gas are seen within the superficial subcutaneous tissues there is once a Gamal-Rubalcava severiano in on 07/24/2021. Fat-containing defect in the anterior abdominal wall is present measuring up to 12 m m at the neck. It is unclear whether the fat coming from the subcutaneous tissues or from the abdomin al cavity. IMPRESSION: 1. No evidence of pneumoperitoneum or organizing fluid collection with bowel and subcutaneous postsur gical changes. 2. Prior drain within the subcutaneous tissues has been removed with scattered foci of gas. No eviden ce of organizing fluid collection at this time. 3. Fat containing defect of the ventral abdominal wall measuring up to 12 mm at the neck. Unclear whe ther the fat is from the subcutaneous tissues or from the omentum.
[2021-07-28] MEDS: TOPIRAMATE 25 MG TAB PO SCH (19:37)
[2021-07-28] MEDS: traZODone HCL 100 MG TAB PO SCH (19:37)
[2021-07-29] MEDS: HYDROcodone/APAP 5-325MG 1 EACH TAB PO PRN ×2 (00:35→09:08)
[2021-07-29 04:12] VITALS: RESP 16
[2021-07-29 08:43] VITALS: BP 136/70; PULSE 83; TEMP 98.3
[2021-07-29] MEDS: PANTOPRAZOLE 40 MG TABLET PO SCH (09:01)
[2021-07-29] MEDS: METOPROLOL SUCCINATE (ER) 25 MG TAB.ER.24H PO SCH (09:01)
[2021-07-29] MEDS: ENOXAPARIN 40 MG/0.4 ML SYRINGE SQ SCH (09:01)
[2021-07-29] MEDS: CHOLECALCIFEROL 25 MCG (1000 IU) TABLET PO SCH (09:01)
[2021-07-29] MEDS: GABAPENTIN 100 MG CAP PO SCH (09:01)
[2021-07-29] MEDS: hydrALAZINE HCL 50 MG TAB PO SCH (09:02)
[2021-07-29] MEDS: DICYCLOMINE 10 MG CAP PO SCH (09:02)
[2021-07-29] MEDS: polyethylene glycoL 3350 17 GM POWD.PACK PO SCH (09:02)
[2021-07-29] MEDS: SIMETHICONE 80 MG CHEWABLE PO SCH (09:02)
--- NOTE | 2021-07-29 14:32 | P.PN ---
Subjective Progress Note Date: 07/29/21 CHIEF COMPLAINT: Abdominal pain HISTORY OF PRESENT ILLNESS: Patient complaining of abdominal pain. It is less severe than yesterday. She describes the pain is twisting. Pain medication does help. She is again complaining of a migraine headache. Denies any nausea or vomiting. Computed tomography scan shows no evidence of pneumoperitoneum or organizing fluid collection with bowel and subcutaneous postsurgical changes. Prior drain within the subcutaneous tissues has been removed with scattered foci of gas. No evidence of organizing fluid collection at this time. Fat- containing defect of the ventral abdominal wall measuring up to 12 mm at the neck. Unclear whether the fascia is from the subcutaneous tissues or from the omentum. Computed tomography scan findings were reviewed with Dr. moreno. Patient is afebrile. PHYSICAL EXAM: VITAL SIGNS: Reviewed. GENERAL: Well-developed in no acute distress. HEENT: No sclera icterus. Extraocular movements grossly intact. Moist buccal mucosa. Head is atraumatic, normocephalic. ABDOMEN: Soft. Nondistended. Incision site clean dry and intact. Mild diffuse tenderness. NEUROLOGIC: Alert and oriented. Cranial nerves II through XII grossly intact. ASSESSMENT: 1. Abdominal pain 2. Dehydration 3. Recent EGD revealing antral gastritis 4. Status post repair of incarcerated incisional hernia with mesh and lysis of adhesions on 07/08/2021 PLAN: -Computed tomography scan findings reviewed with Dr. moreno -No surgical intervention planned -Continue supportive care -Patient can be discharge from surgical standpoint -Follow up with Dr. moreno in 1 week Physician Dial Screw Assembler note has been reviewed by physician. Signing provider agrees with the documented findings, assessment, and plan of care. Objective - Vital Signs Vital signs: Vital Signs Temp 98.3 F 07/29/21 07:00 Pulse 83 07/29/21 07:00 Resp 16 07/29/21 07:00 BP 136/70 07/29/21 07:00 Pulse Ox 97 07/29/21 07:00 Intake & Output 07/28/21 07/29/21 07/29/21 18:59 06:59 18:59 Intake Total 118 Balance 118 Weight 95.254 kg Intake: Oral 118 Other: # Voids 1 2 1 # Bowel Movements 1 1 - Labs CBC & Chem 7: 07/28/21 10:14 07/27/21 05:59
== END 2021-07-29 11:05 | DRG 948 ==
LOC: EC 20:07 → 6NMEDSUR 23:15 → OBSVTOIN 07-27 11:21
PROVIDERS: ADMIT Family Medicine; ATTEND Family Medicine
DX: G89.18 Other acute postprocedural pain (principal); D64.9 Anemia, unspecified; E11.22 Type 2 diabetes mellitus with diabetic chronic kidney disease; E11.40 Type 2 diabetes mellitus with diabetic neuropathy, unspecified; E11.51 Type 2 diabetes mellitus with diabetic peripheral angiopathy without gangrene; E66.9 Obesity, unspecified; E78.5 Hyperlipidemia, unspecified; E86.0 Dehydration; G43.909 Migraine, unspecified, not intractable, without status migrainosus; I12.9 Hypertensive chronic kidney disease with stage 1 through stage 4 chronic kidney disease, or unspecified chronic kidney disease; I25.10 Atherosclerotic heart disease of native coronary artery without angina pectoris; K59.00 Constipation, unspecified; N18.30 Chronic kidney disease, stage 3 unspecified; Z68.29 Body mass index [BMI] 29.0-29.9, adult; Z79.1 Long term (current) use of non-steroidal anti-inflammatories (NSAID); Z79.82 Long term (current) use of aspirin; Z87.891 Personal history of nicotine dependence; Z86.16 Personal history of COVID-19; Z82.49 Family history of ischemic heart disease and other diseases of the circulatory system; Z82.3 Family history of stroke; Z80.3 Family history of malignant neoplasm of breast; Z79.899 Other long term (current) drug therapy; K21.9 Gastro-esophageal reflux disease without esophagitis; K29.70 Gastritis, unspecified, without bleeding; M19.90 Unspecified osteoarthritis, unspecified site; Z79.84 Long term (current) use of oral hypoglycemic drugs; G62.9 Polyneuropathy, unspecified
CPT/HCPCS: 36415; 74176; 74177; 80048; 80053; 81001; 83605; 83690; 84484; 85025; 85027; 85610; 85730; 87086; 87635; 93005; 96361; 96374; 96375; 96376; 99285

== ENCOUNTER 2021-11-11 18:27 | Inpatient (IN) | payer MEDICARE ==
[2021-11-12] MEDS ORDERED: SODIUM CHLORIDE 0.9% 1,000 ML IV STA (00:14)
[2021-11-12] MEDS ORDERED: HYDROmorphone 1 MG/ML 1 ML SYRINGE IVP STA (00:35)
[2021-11-12] MEDS ORDERED: ONDANSETRON 4 MG/2 ML VIAL IVP STA (00:35)
--- NOTE | 2021-11-12 00:35 | ED ---
Abdominal Pain HPI - General Chief Complaint: Abdominal Pain Stated Complaint: Stomach/Abd pain/Fever Time Seen by Provider: 11/12/21 00:11 Source: patient, family, RN notes reviewed Mode of arrival: ambulatory Limitations: no limitations - History of Present Illness Initial Comments: This is a 66-year-old female with a history of chronic abdominal pain. Patient previously had a bowel resection after having a volvulus. Patient was actually seen here on the and had a computed tomography scan done which was essentially nondiagnostic for any acute pathology. Patient back with the same pain. Patient states that when she drinks fluids it is going right through her and she is having diarrhea. Patient complaining of sharp pains to her epigastrium which radiated to both the left and right upper quadrant. No chest pain or shortness of breath. No fever or chills. No melena or hematochezia. Patient is not vomiting. No nausea. No fever. No headache, no fever or chills, no changes in vision or hearing, no sore throat or difficulty with speech, no neck pain, no chest pain or shortness of breath, no nausea or vomiting, no changes in urination or bowel movements, no numbness or tingling, no extremity pain, no skin rashes or lesions. MD Complaint: abdominal pain - Related Data Home Medications Medication Instructions Recorded Confirmed Diclofenac Sodium Gel [Voltaren 4 gm TOPICAL QID PRN 07/04/21 07/24/21 Gel] Metoprolol Succinate (ER) [Toprol 25 mg PO DAILY 07/04/21 07/24/21 XL] Omeprazole [PriLOSEC] 40 mg PO DAILY 07/04/21 07/24/21 Topiramate [Topamax] 50 mg PO HS 07/04/21 07/24/21 traZODone HCL [Desyrel] 100 mg PO HS 07/04/21 07/24/21 [id number] 2 tab PO Q4HR PRN 07/24/21 07/24/21 [Excedrin] Previous Rx's Medication Instructions Recorded Aspirin 81 mg PO DAILY 60 Days #60 chew 09/20/20 Dicyclomine [Bentyl] 10 mg PO TID 7 Days #21 capsule 07/02/21 Acetaminophen Tab [Tylenol] 650 mg PO Q6HR PRN tab 07/11/21 Ascorbic Acid [Vitamin C] 500 mg PO BID tab 07/11/21 Cholecalciferol [Vitamin D3 (25 100 mcg PO DAILY tablet 07/11/21 Mcg = 1000 Iu)] Zinc Sulfate [Orazinc] 220 mg PO DAILY cap 07/11/21 Gabapentin [Neurontin] 100 mg PO BID #6 cap 07/28/21 Simethicone Chew [Mylicon Chew] 40 mg PO QID tab 07/28/21 hydrALAZINE HCL [Apresoline] 50 mg PO TID tab 07/28/21 HYDROcodone/APAP 5-325MG [[place] 1 tab PO Q6HR PRN 3 Days #12 tab 07/29/21 5-325] Allergies Allergy/AdvReac Type Severity Reaction Status Date / Time morphine Allergy Rash/Hives Verified 11/11/21 20:19 sulfamethoxazole Allergy ABD PAIN Verified 11/11/21 20:19 [From Bactrim] Review of Systems ROS Statement: Those systems with pertinent positive or pertinent negative responses have been documented in the HPI. ROS Other: All systems not noted in ROS Statement are negative. 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 bowel resection for obstruction, amalia cataracts, Past Anesthesia/Blood Transfusion Reactions: No Reported Reaction Past Psychological History: No Psychological Hx Reported Smoking Status: Former smoker Past Alcohol Use History: Rare Past Drug Use History: None Reported - Past Family History Mother Family Medical History: Cancer, CVA/TIA, Pulmonary Embolus Additional Family Medical History / Comment(s): breast cancer Father Family Medical History: CVA/TIA, Myocardial Infarction ([place]) Additional Family Medical History / Comment(s): . Brother(s) Family Medical History: Congestive Heart Failure (CHF) Additional Family Medical History / Comment(s): CABG General Exam - General Exam Comments Initial Comments: Patient does not appear to be ill or toxic. In distress complaining of abdominal pain. Limitations: no limitations General appearance: in distress (Mild) Head exam: Present: atraumatic, normocephalic, normal inspection Eye exam: Present: normal appearance, PERRL, EOMI. Absent: scleral icterus, conjunctival injection, periorbital swelling ENT exam: Present: normal exam, mucous membranes moist Neck exam: Present: normal inspection. Absent: tenderness, meningismus, lymphadenopathy Respiratory exam: Present: normal lung sounds bilaterally. Absent: respiratory distress, wheezes, rales, rhonchi, stridor Cardiovascular Exam: Present: regular rate, normal rhythm, normal heart sounds. Absent: systolic murmur, diastolic murmur, rubs, gallop, clicks GI/Abdominal exam: Present: soft, normal bowel sounds. Absent: distended, tenderness, guarding, rebound, rigid Extremities exam: Present: normal inspection, full ROM, normal capillary refill. Absent: tenderness, pedal edema, joint swelling, calf tenderness Back exam: Present: normal inspection Neurological exam: Present: alert, oriented X3, CN II-XII intact Psychiatric exam: Present: normal affect, normal mood Skin exam: Present: warm, dry, intact, normal color. Absent: rash Course Vital Signs 11/11/21 11/12/21 20:17 02:44 Temperature 98.1 F Pulse Rate 109 H 109 H Respiratory 20 20 Rate Blood Pressure 147/60 151/74 O2 Sat by Pulse 96 98 Oximetry Medical Decision Making - Medical Decision Making Presenting with what is consistent with her chronic and recurrent abdominal pain which has been going on for a few years, states even before the surgery. Patient does not appear to be ill or toxic. Had a computed tomography scan which did not show any acute changes within the last 48 hours. - Lab Data Result diagrams: 11/12/21 02:30 11/12/21 02:30 Lab Results 11/12/21 11/12/21 11/12/21 Range/Units 02:30 02:30 02:30 WBC 7.5 (3.8-10.6) k/uL RBC 3.74 L (3.80-5.40) m/uL Hgb 11.6 (11.4-16.0) gm/dL Hct 36.3 (34.0-46.0) % MCV 97.1 (80.0-100.0) fL MCH 31.1 (25.0-35.0) pg MCHC 32.0 (31.0-37.0) g/dL RDW 13.3 (11.5-15.5) % Plt Count 201 (150-450) k/uL MPV 8.0 Neutrophils % 85 % Lymphocytes % 7 % Monocytes % 4 % Eosinophils % 2 % Basophils % 0 % Neutrophils # 6.4 (1.3-7.7) k/uL Lymphocytes # 0.6 L (1.0-4.8) k/uL Monocytes # 0.3 (0-1.0) k/uL Eosinophils # 0.1 (0-0.7) k/uL Basophils # 0.0 (0-0.2) k/uL PT 10.2 (9.0-12.0) sec INR 0.9 (<1.2) APTT 20.4 L (22.0-30.0) sec Sodium 136 L (137-145) mmol/L Potassium 3.2 L (3.5-5.1) mmol/L Chloride 100 (98-107) mmol/L Carbon Dioxide 25 (22-30) mmol/L Anion Gap 11 mmol/L BUN 17 (7-17) mg/dL Creatinine 1.47 H (0.52-1.04) mg/dL Est GFR (CKD-EPI)AfAm 43 (>60 ml/min/1.73 sqM) Est GFR (CKD-EPI)NonAf 37 (>60 ml/min/1.73 sqM) Glucose 160 H (74-99) mg/dL Plasma Lactic Acid [place] (0.7-2.0) mmol/L Calcium 8.3 L (8.4-10.2) mg/dL Total Bilirubin 0.4 (0.2-1.3) mg/dL AST 33 (14-36) U/L ALT 24 (4-34) U/L Alkaline Phosphatase 116 (38-126) U/L Troponin I (0.000-0.034) ng/mL C-Reactive Protein 16.2 H (<1.0) mg/dL Total Protein 6.4 (6.3-8.2) g/dL Albumin 3.9 (3.5-5.0) g/dL Lipase 38 (23-300) U/L 11/12/21 11/12/21 Range/Units 02:30 02:30 WBC (3.8-10.6) k/uL RBC (3.80-5.40) m/uL Hgb (11.4-16.0) gm/dL Hct (34.0-46.0) % MCV (80.0-100.0) fL MCH (25.0-35.0) pg MCHC (31.0-37.0) g/dL RDW (11.5-15.5) % Plt Count (150-450) k/uL MPV Neutrophils % % Lymphocytes % % Monocytes % % Eosinophils % % Basophils % % Neutrophils # (1.3-7.7) k/uL Lymphocytes # (1.0-4.8) k/uL Monocytes # (0-1.0) k/uL Eosinophils # (0-0.7) k/uL Basophils # (0-0.2) k/uL PT (9.0-12.0) sec INR (<1.2) APTT (22.0-30.0) sec Sodium (137-145) mmol/L Potassium (3.5-5.1) mmol/L Chloride (98-107) mmol/L Carbon Dioxide (22-30) mmol/L Anion Gap mmol/L BUN (7-17) mg/dL Creatinine (0.52-1.04) mg/dL Est GFR (CKD-EPI)AfAm (>60 ml/min/1.73 sqM) Est GFR (CKD-EPI)NonAf (>60 ml/min/1.73 sqM) Glucose (74-99) mg/dL Plasma Lactic Acid [place] 1.0 (0.7-2.0) mmol/L Calcium (8.4-10.2) mg/dL Total Bilirubin (0.2-1.3) mg/dL AST (14-36) U/L ALT (4-34) U/L Alkaline Phosphatase (38-126) U/L Troponin I 0.041 H* (0.000-0.034) ng/mL C-Reactive Protein (<1.0) mg/dL Total Protein (6.3-8.2) g/dL Albumin (3.5-5.0) g/dL Lipase (23-300) U/L - EKG Data EKG Comments: EKG done at 0 3:15 reveals sinus rhythm with rate of 80. Left axis deviation. No acute ST or T-wave changes noted. Normal intervals. Reviewed by the ED attending physician. - Radiology Data Radiology results: report reviewed, image reviewed Disposition Clinical Impression: Non-ST elevation DC (NSTEMI), Abdominal pain Narrative: Chronic seroma versus early abscess Disposition: ADMITTED IP TO THIS HOSP Condition: Fair Is patient prescribed a controlled substance at d/c from ED?: No Referrals: Dmitry Lewis MD [Primary Care Provider] - 1-2 days Time of Disposition: 03:50 Decision to Admit Reason: Admit from EC Decision Time: 03:50
[2021-11-12 02:38] LABS: Basophils % (A) 0 %; Eosinophils # (A) 0.1 k/uL (0-0.7); Eosinophils % (A) 2 %; HCT 36.3 % (34.0-46.0); HGB 11.6 gm/dL (11.4-16.0); Lymphocytes # (A) 0.6 k/uL (1.0-4.8); Lymphocytes % (A) 7 %; MCH 31.1 pg (25.0-35.0); MCV 97.1 fL (80.0-100.0); Monocytes # (A) 0.3 k/uL (0-1.0); Monocytes % (A) 4 %; Neutrophils # (A) 6.4 k/uL (1.3-7.7); Neutrophils % (A) 85 %; Platelet Count 201 k/uL (150-450); RBC 3.74 m/uL (3.80-5.40); RDW 13.3 % (11.5-15.5); WBC 7.5 k/uL (3.8-10.6)
[2021-11-12 02:52] LABS: Albumin 3.9 g/dL (3.5-5.0); Calcium 8.3 mg/dL (8.4-10.2); Potassium 3.2 mmol/L (3.5-5.1); Total Bilirubin 0.4 mg/dL (0.2-1.3); Total Protein 6.4 g/dL (6.3-8.2)
[2021-11-12 03:01] LABS: INR 0.9 (<1.2); Prothrombin Time 10.2 sec (9.0-12.0)
--- NOTE | 2021-11-12 03:24 | XR ---
EXAMINATION TYPE: XR abdomen acute w cxr DATE OF EXAM: 11/12/2021 COMPARISON: 11/10/2021 HISTORY: Constipation TECHNIQUE: 4 views FINDINGS: Heart and mediastinum are normal. Lungs are clear of infiltrate. There are clips from cholecystectomy. There is a large bowel fluid level in the mid abdomen. No evide nce of free air. No evidence of a mass. IMPRESSION: No active cardiopulmonary disease. No bowel obstruction. Large bowel fluid level could re late to some diarrhea. No evidence of constipation.
[2021-11-12 03:27] LABS: Partial Thromboplastin Time 20.4 sec (22.0-30.0)
[2021-11-12 03:29] LABS: C Reactive Protein 16.2 mg/dL (<1.0)
[2021-11-12] MEDS ORDERED: ASPIRIN 81 MG PO STA (03:35)
[2021-11-12] MEDS ORDERED: Potassium Replacement Protocol 1 EACH MISC MISCELLANE PRN (03:36)
[2021-11-12] MEDS ORDERED: PIPERACILLIN-TAZOBACTAM 3.375 GM in SODIUM CHLORIDE 0.9% 100 ML IVPB STA (03:46)
[2021-11-12] MEDS ORDERED: ONDANSETRON 4 MG/2 ML VIAL IVP PRN (03:51)
[2021-11-12] MEDS ORDERED: NALOXONE 0.4 MG/ML 1 ML VIAL IV PRN (03:51)
[2021-11-12] MEDS: SODIUM CHLORIDE 0.9% 1,000 ML IV SCH ×3 (05:06→22:39)
[2021-11-12] MEDS: POTASSIUM CHLORIDE ER 20 MEQ TAB.ER PO SCH ×2 (05:06→06:03)
[2021-11-12] MEDS: INSULIN ASPART (NovoLOG) 100 UNIT/ML VIAL SQ SCH ×4 (06:00→21:31)
[2021-11-12 06:07] LABS: Glucose,Whole Blood 126 mg/dL (75-99)
[2021-11-12] MEDS: HYDROmorphone 1 MG/ML 1 ML SYRINGE IVP PRN ×2 (08:19→20:02)
[2021-11-12 09:39] LABS: Appearance,Urine Cloudy (Clear); Bilirubin,Urine 1+ (Negative); Blood,Urine Trace (Negative); Color,Urine Yellow; Glucose,Urine (UA) Negative (Negative); Hyaline Casts,Urine 1 /lpf (0-2); Ketones,Urine 1+ (Negative); Leukocyte Esterase,Urine Negative (Negative); Mucus,Urine Moderate /hpf; Nitrite,Urine Negative (Negative); Protein,Urine 1+ (Negative); RBC,Urine 1 /hpf (0-5); Specific Gravity,Urine 1.035 (1.001-1.035); Squamous Epithelial Cell,Urine 3 /hpf (0-4); WBC,Urine 4 /hpf (0-5)
[2021-11-12] MEDS ORDERED: POTASSIUM CHLORIDE ER 20 MEQ TAB.ER PO STA (11:26)
--- NOTE | 2021-11-12 11:34 | P.HPIM ---
History of Present Illness Patient is a pleasant 64-year-old female came in with compensative back pain in the upper lumbar lower thoracic area radiating around the upper abdomen and lower chest. Patient is mildly elevated troponins because of his cardiac was consulted on the patient has a normal EKG. Patient troponins are 0.041 and 0.082. Patient is also found to have mildly elevated creatinine of 1.47 baseline is around 1.1 patient pain appears to be back pain with thoracic- lumbar degenerative disc disease patient had history of abdominal surgeries and multiple hospitalizations in the past because of abdominal pain although this appears to be different from her previous auscultations patient had a recent CT of the abdomen which was essentially within normal limits patient has an acute abdominal series which was within normal limits. REVIEW OF SYSTEMS: CONSTITUTIONAL: No fever, no malaise, no fatigue. HEENT: No recent visual problems or hearing problems. Denied any sore throat. CARDIOVASCULAR: No chest pain, orthopnea, PND, no palpitations, no syncope. PULMONARY: No shortness of breath, no cough, no hemoptysis. GASTROINTESTINAL: No diarrhea, no nausea, no vomiting, no abdominal pain. NEUROLOGICAL: No headaches, no weakness, no numbness. HEMATOLOGICAL: Denies any bleeding or petechiae. GENITOURINARY: Denies any burning micturition, frequency, or urgency. MUSCULOSKELETAL/RHEUMATOLOGICAL: As mentioned in HPI ENDOCRINE: Denies any polyuria or polydipsia. The rest of the 14-point review of systems is negative. PHYSICAL EXAMINATION: GENERAL: The patient is alert and oriented x3, not in any acute distress. Well developed, well nourished. HEENT: Pupils are round and equally reacting to light. EOMI. No scleral icterus. No conjunctival pallor. Normocephalic, atraumatic. No pharyngeal erythema. No thyromegaly. CARDIOVASCULAR: S1 and S2 present. No murmurs, rubs, or gallops. PULMONARY: Chest is clear to auscultation, no wheezing or crackles. ABDOMEN: Soft, nontender, nondistended, normoactive bowel sounds. No palpable organomegaly. MUSCULOSKELETAL: No joint swelling or deformity. EXTREMITIES: No cyanosis, clubbing, or pedal edema. NEUROLOGICAL: Gross neurological examination did not reveal any focal deficits. SKIN: No rashes. Assessment and plan -Abdominal pain, chest pain: Secondary to thoracolumbar vertebral disease, chest pain appears to be atypical and noncardiac etiology will evaluate the patient, echo will be obtained patient probably will be monitored overnight hospital discharge tomorrow patient's mild elevation in troponins secondary to renal failure -Mild acute renal failure possibility of prerenal azotemia is probably some chronic kidney disease stage II patient present creatinine is 1.47 can you with IV fluids and recheck the creatinine tomorrow -Hypokalemia: Natriuretic hypokalemia secondary to IV fluids, potassium will be replaced -Chronic back pain: Supportive care, physical therapy and occupational therapy evaluation -Coronary artery disease history Diabetes mellitus -Gastroesophageal reflux disease -Hyperlipidemia -Peripheral vascular disease For above-mentioned chronic medical problems patient will be resumed on appropriate home medications once these are verified DVT prophylaxis: Subcutaneous heparin Past Medical History Past Medical History: Coronary Artery Disease (CAD), Diabetes Mellitus, Eye Disorder, GERD/Reflux, Hyperlipidemia, Memory Impairment, Osteoarthritis (OA), Renal Disease, Vascular Disorder Additional Past Medical History / Comment(s): hiatal hernia, NIDDM type II-diet control, neuropathy in bilateral legs, hx chronic kidney disease stage 3, PVD, 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 bowel resection for obstruction, amalia cataracts, Past Anesthesia/Blood Transfusion Reactions: No Reported Reaction Past Psychological History: No Psychological Hx Reported Additional Psychological History / Comment(s): short term memory loss Smoking Status: Former smoker Past Alcohol Use History: Rare Additional Past Alcohol Use History / Comment(s): quit smoking 20 yrs ago, smoked for 20 yrs Past Drug Use History: None Reported - Past Family History Mother Family Medical History: Cancer, CVA/TIA, Pulmonary Embolus Additional Family Medical History / Comment(s): breast cancer Father Family Medical History: CVA/TIA, Myocardial Infarction ([place]) Additional Family Medical History / Comment(s): . Brother(s) Family Medical History: Congestive Heart Failure (CHF) Additional Family Medical History / Comment(s): CABG Medications and Allergies Home Medications Medication Instructions Recorded Confirmed Type Aspirin 81 mg PO DAILY 60 Days #60 chew 09/20/20 07/24/21 Rx Dicyclomine [Bentyl] 10 mg PO TID 7 Days #21 capsule 07/02/21 07/24/21 Rx Diclofenac Sodium Gel [Voltaren 4 gm TOPICAL QID PRN 07/04/21 07/24/21 History Gel] Metoprolol Succinate (ER) [Toprol 25 mg PO DAILY 07/04/21 07/24/21 History XL] Omeprazole [PriLOSEC] 40 mg PO DAILY 07/04/21 07/24/21 History Topiramate [Topamax] 50 mg PO HS 07/04/21 07/24/21 History traZODone HCL [Desyrel] 100 mg PO HS 07/04/21 07/24/21 History Acetaminophen Tab [Tylenol] 650 mg PO Q6HR PRN tab 07/11/21 07/24/21 Rx Ascorbic Acid [Vitamin C] 500 mg PO BID tab 07/11/21 07/24/21 Rx Cholecalciferol [Vitamin D3 (25 100 mcg PO DAILY tablet 07/11/21 07/24/21 Rx Mcg = 1000 Iu)] Zinc Sulfate [Orazinc] 220 mg PO DAILY cap 07/11/21 07/24/21 Rx Gvsgvrl-Akfz-Zbel [id number] 2 tab PO Q4HR PRN 07/24/21 07/24/21 History [Excedrin] Gabapentin [Neurontin] 100 mg PO BID #6 cap 07/28/21 Rx Simethicone Chew [Mylicon Chew] 40 mg PO QID tab 07/28/21 Rx hydrALAZINE HCL [Apresoline] 50 mg PO TID tab 07/28/21 Rx HYDROcodone/APAP 5-325MG [[place] 1 tab PO Q6HR PRN 3 Days #12 tab 07/29/21 Rx 5-325] Allergies Allergy/AdvReac Type Severity Reaction Status Date / Time morphine Allergy Rash/Hives Verified 11/11/21 20:19 sulfamethoxazole Allergy ABD PAIN Verified 11/11/21 20:19 [From Bactrim] Physical Exam Vitals: Vital Signs Temp Pulse Pulse Resp BP BP Pulse Ox 11/12/21 08:00 99.2 F 82 18 105/50 95 05/21/22 05:33 99.1 F 101 H 18 124/77 95 11/12/21 05:17 88 20 115/99 96 11/12/21 02:44 109 H 20 151/74 98 11/11/21 20:17 98.1 F 109 H 20 147/60 96 Intake and Output 11/11/21 11/12/21 11/12/21 22:59 06:59 14:59 Intake Total 0 Balance 0 Intake: Oral 0 Other: Voiding Method Toilet Toilet Diaper Diaper # Voids 1 Weight 81.647 kg 81.647 kg Results CBC & Chem 7: 11/12/21 02:30 11/12/21 02:30 Labs: Abnormal Lab Results - Last 24 Hours (Table) 11/12/21 11/12/21 11/12/21 Range/Units 02:30 02:30 02:30 RBC 3.74 L (3.80-5.40) m/uL Lymphocytes # 0.6 L (1.0-4.8) k/uL APTT 20.4 L (22.0-30.0) sec Sodium 136 L (137-145) mmol/L Potassium 3.2 L (3.5-5.1) mmol/L Creatinine 1.47 H (0.52-1.04) mg/dL Glucose 160 H (74-99) mg/dL POC Glucose (mg/dL) (75-99) mg/dL Calcium 8.3 L (8.4-10.2) mg/dL Troponin I (0.000-0.034) ng/mL C-Reactive Protein 16.2 H (<1.0) mg/dL Urine Appearance (Clear) Urine Protein (Negative) Urine Ketones (Negative) Urine Blood (Negative) Urine Bilirubin (Negative) Urine Mucus (None) /hpf 11/12/21 11/12/21 11/12/21 Range/Units 02:30 05:57 07:59 RBC (3.80-5.40) m/uL Lymphocytes # (1.0-4.8) k/uL APTT (22.0-30.0) sec Sodium (137-145) mmol/L Potassium (3.5-5.1) mmol/L Creatinine (0.52-1.04) mg/dL Glucose (74-99) mg/dL POC Glucose (mg/dL) 126 H (75-99) mg/dL Calcium (8.4-10.2) mg/dL Troponin I 0.041 H* 0.082 H* (0.000-0.034) ng/mL C-Reactive Protein (<1.0) mg/dL Urine Appearance (Clear) Urine Protein (Negative) Urine Ketones (Negative) Urine Blood (Negative) Urine Bilirubin (Negative) Urine Mucus (None) /hpf 11/12/21 Range/Units 08:10 RBC (3.80-5.40) m/uL Lymphocytes # (1.0-4.8) k/uL APTT (22.0-30.0) sec Sodium (137-145) mmol/L Potassium (3.5-5.1) mmol/L Creatinine (0.52-1.04) mg/dL Glucose (74-99) mg/dL POC Glucose (mg/dL) (75-99) mg/dL Calcium (8.4-10.2) mg/dL Troponin I (0.000-0.034) ng/mL C-Reactive Protein (<1.0) mg/dL Urine Appearance Cloudy H (Clear) Urine Protein 1+ H (Negative) Urine Ketones 1+ H (Negative) Urine Blood Trace H (Negative) Urine Bilirubin 1+ H (Negative) Urine Mucus Moderate H (None) /hpf Thrombosis Risk Factor Assmnt - Choose All That Apply Any of the Below Risk Factors Present?: Yes Each Factor Represents 1 point: Obesity (BMI >25), Swollen legs (current) Other Risk Factors: Yes Each Risk Factor Represents 2 Points: Age 61-74 years Each Risk Factor Represents 3 Points: History of DVT/PE Other congenital or acquired thrombophilia - If yes, enter type in comment: No Thrombosis Risk Factor Assessment Total Risk Factor Score: 7 Thrombosis Risk Factor Assessment Level: High Risk
[2021-11-12] MEDS: ACETAMINOPHEN TAB 325 MG TAB PO PRN (11:52)
[2021-11-12] MEDS ORDERED: METOPROLOL TARTRATE 25 MG TAB PO SCH (12:00)
[2021-11-12 12:10] LABS: Glucose,Whole Blood 100 mg/dL (75-99)
--- NOTE | 2021-11-12 12:37 | P.CRDCN ---
History of Present Illness History of present illness: HISTORY OF PRESENTING ILLNESS This is a pleasant 66-year-old female past medical history significant for hypertension, diabetes mellitus, dyslipidemia, chronic kidney disease follo wed by Dr. Barksdale and coronary artery disease with either heavily calcified RCA or totally occluded based on catheterization from 2017. She follows in the office with Dr. Hickey. We have been asked to see in consultation for elevated troponin. She presented to the hospital with symptoms of epigastric discomfort associated with nausea and diarrhea. She had been here the day prior and had a CT of the abdomen and pelvis revealing postsurgical changes along the anterior abdominal wall with prior mesh repair, previous partial right hemicolectomy with new right mid abdominal mesenteric nodular mass measuring 1.1 cm metastatic nodes not excluded and some prominent fluid within the lower abdominal small bowel loops. She was started on IV antibiotics for suspected enteritis. She is seen and examined resting comfortably laying flat in bed in no acute distress. She continues to have some vague abdominal discomfort at times but has improved since admission DIAGNOSTICS EKG reveals . Sinus rhythm with no acute ST or T wave abnormalities noted. Laboratory reviewed, WBC 7.5, hemoglobin 11.6, platelets 201, sodium 136, potassium 3.2, creatinine 1.47, troponin 0.041, 0.082, 0.111 and C-reactive protein 16.2. Current cardiac medications include aspirin 81 mg daily, hydralazine 50 mg 3 times a day, Toprol 25 mg daily. She recently underwent cardiac testing in the office with an echocardiogram revealing preserved LV systolic function with ejection fraction 55-60%, patent foramen ovale, mild MR and mild TR. This was performed 11/16/2020. Most recent stress test performed in the office 01/11/2021 revealed an apical fixed defect with no ischemia and ejection fraction 60%. REVIEW OF SYSTEMS At the time of my exam: CONSTITUTIONAL: Denies fever or chills. CARDIOVASCULAR: Denies chest pain, shortness of breath, orthopnea, PND or palpitations. RESPIRATORY: Denies cough. GASTROINTESTINAL: Complains of abdominal pain and diarrhea. Denies constipation, nausea or vomiting. MUSCULOSKELETAL: Denies myalgias. NEUROLOGIC: Denies numbness, tingling, headache or weakness. ENDOCRINE: Denies fatigue, weight change, polydipsia or polyurina. GENITOURINARY: Denies burning, hematuria or urgency with micturation. HEMATOLOGIC: Denies history of anemia or bleeding. PHYSICAL EXAMINATION Blood pressure 131/65 heart rate 88 febrile at 101.2F and maintaining oxygen saturation on room air. CONSTITUTIONAL: No apparent distress. HEENT: Head is normocephalic. Pupils are equal, round. Sclerae anicteric. Mucous membranes of the mouth are moist. No JVD. No carotid bruit. CHEST EXAMINATION: Lungs are clear to auscultation. No chest wall tenderness is noted on palpation or with deep breathing. HEART EXAMINATION: Regular rate and rhythm. S1, S2 heard. No murmurs, gallops or rub. ABDOMEN: Soft, nontender. EXTREMITIES: 2+ peripheral pulses, no lower extremity edema and no calf tenderness. NEUROLOGIC EXAMINATION: Patient is awake, alert and oriented x3. ASSESSMENT Abdominal pain and diarrhea Febrile illness Elevated troponin not suggestive of myocardial injury Hypertension Dyslipidemia Diabetes mellitus Chronic kidney disease PLAN Add atorvastatin 40 mg daily to her regimen. Change beta marisel to metoprolol titrate 25 mg twice a day. Repeat echocardiogram to assess LV function. Ongoing treatment for abdominal pain and febrile illness suggestive of infectious process. If LV function is normal we will follow along as needed. She can follow-up in the office with Dr. Hickey in 1-2 weeks. Thank you kindly for this consultation. Nurse Practitioner note has been reviewed, I agree with a documented findings and plan of care. Patient was seen and examined. 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 bowel resection for obstruction, amalia cataracts, Past Anesthesia/Blood Transfusion Reactions: No Reported Reaction Past Psychological History: No Psychological Hx Reported Additional Psychological History / Comment(s): short term memory loss Smoking Status: Former smoker Past Alcohol Use History: Rare Additional Past Alcohol Use History / Comment(s): quit smoking 20 yrs ago, smoked for 20 yrs Past Drug Use History: None Reported - Past Family History Mother Family Medical History: Cancer, CVA/TIA, Pulmonary Embolus Additional Family Medical History / Comment(s): breast cancer Father Family Medical History: CVA/TIA, Myocardial Infarction ([place]) Additional Family Medical History / Comment(s): . Brother(s) Family Medical History: Congestive Heart Failure (CHF) Additional Family Medical History / Comment(s): CABG Medications and Allergies Home Medications Medication Instructions Recorded Confirmed Type Aspirin 81 mg PO DAILY 60 Days #60 chew 09/20/20 11/12/21 Rx Diclofenac Sodium Gel [Voltaren 4 gm TOPICAL QID PRN 07/04/21 11/12/21 History Gel] Metoprolol Succinate (ER) [Toprol 25 mg PO DAILY 07/04/21 11/12/21 History XL] Omeprazole [PriLOSEC] 40 mg PO DAILY 07/04/21 11/12/21 History Topiramate [Topamax] 50 mg PO HS 07/04/21 11/12/21 History traZODone HCL [Desyrel] 100 mg PO HS 07/04/21 11/12/21 History Acetaminophen Tab [Tylenol] 650 mg PO Q6HR PRN tab 07/11/21 11/12/21 Rx Ascorbic Acid [Vitamin C] 500 mg PO BID tab 07/11/21 11/12/21 Rx Cholecalciferol [Vitamin D3 (25 100 mcg PO DAILY tablet 07/11/21 11/12/21 Rx Mcg = 1000 Iu)] Zinc Sulfate [Orazinc] 220 mg PO DAILY cap 07/11/21 11/12/21 Rx Gabapentin [Neurontin] 100 mg PO BID #6 cap 07/28/21 11/12/21 Rx Clotrimazole Cream [Lotrimin Cream] 1 applic TOPICAL BID 11/12/21 11/12/21 History Pantoprazole Sodium [Protonix] 40 mg PO BID 11/12/21 11/12/21 History Sucralfate [Carafate] 1 gm PO QID 11/12/21 11/12/21 History hydrALAZINE HCL [Apresoline] 50 mg PO TID 11/12/21 11/12/21 History Allergies Allergy/AdvReac Type Severity Reaction Status Date / Time morphine Allergy Rash/Hives Verified 11/12/21 12:00 sulfamethoxazole Allergy ABD PAIN Verified 11/12/21 12:00 [From Bactrim] Physical Exam Vitals: Vital Signs Temp Pulse Pulse Resp BP BP Pulse Ox 11/12/21 08:00 99.2 F 82 18 105/50 95 11/12/21 05:33 99.1 F 101 H 18 124/77 95 11/12/21 05:17 88 20 115/99 96 11/12/21 02:44 109 H 20 151/74 98 11/11/21 20:17 98.1 F 109 H 20 147/60 96 Intake and Output 11/11/21 11/12/21 11/12/21 22:59 06:59 14:59 Intake Total 0 Balance 0 Intake: Oral 0 Other: Voiding Method Toilet Diaper # Voids 1 Weight 81.647 kg 81.647 kg Results 11/12/21 02:30 11/12/21 02:30 Cardiac Enzymes 11/12/21 11/12/21 11/12/21 Range/Units 02:30 02:30 07:59 AST 33 (14-36) U/L Troponin I 0.041 H* 0.082 H* (0.000-0.034) ng/mL Coagulation 11/12/21 Range/Units 02:30 PT 10.2 (9.0-12.0) sec APTT 20.4 L (22.0-30.0) sec CBC 11/12/21 Range/Units 02:30 WBC 7.5 (3.8-10.6) k/uL RBC 3.74 L (3.80-5.40) m/uL Hgb 11.6 (11.4-16.0) gm/dL Hct 36.3 (34.0-46.0) % Plt Count 201 (150-450) k/uL Comprehensive Metabolic Panel 11/12/21 Range/Units 02:30 Sodium 136 L (137-145) mmol/L Potassium 3.2 L (3.5-5.1) mmol/L Chloride 100 (98-107) mmol/L Carbon Dioxide 25 (22-30) mmol/L BUN 17 (7-17) mg/dL Creatinine 1.47 H (0.52-1.04) mg/dL Glucose 160 H (74-99) mg/dL Calcium 8.3 L (8.4-10.2) mg/dL AST 33 (14-36) U/L ALT 24 (4-34) U/L Alkaline Phosphatase 116 (38-126) U/L Total Protein 6.4 (6.3-8.2) g/dL Albumin 3.9 (3.5-5.0) g/dL Current Medications Generic Name Dose Route Start Last Admin Trade Name Freq PRN Reason Stop Dose Admin Acetaminophen 650 mg 11/12/21 03:51 Acetaminophen Tab 325 Mg Tab PO Q6HR PRN Mild Pain or Fever > 100.5 Hydromorphone HCl 1 mg 11/12/21 03:51 11/12/21 08:19 Hydromorphone 1 Mg/Ml 1 Ml Syringe IVP 1 mg Q3HR PRN Administration Severe Pain Sodium Chloride 1,000 mls @ 100 mls/hr 11/12/21 04:00 11/12/21 05:06 Saline 0.9% IV 130 mls/hr .Q10H MARK Administration Insulin Aspart 0 unit 11/12/21 07:30 11/12/21 06:00 Insulin Aspart (Novolog) 100 Unit/Ml Vial SQ Not Given ACHS [facility] Protocol Miscellaneous Information 1 each 11/12/21 03:36 Potassium Replacement Protocol 1 Each Misc MISCELLANE DAILY PRN Per Protocol Protocol Naloxone HCl 0.2 mg 11/12/21 03:51 Naloxone 0.4 Mg/Ml 1 Ml Vial IV Q2M PRN Opioid Reversal Ondansetron HCl 4 mg 11/12/21 03:51 Ondansetron 4 Mg/2 Ml Vial IVP Q8HR PRN Nausea And Vomiting Intake and Output 11/11/21 11/12/21 11/12/21 22:59 06:59 14:59 Intake Total 0 Balance 0 Intake: Oral 0 Other: Voiding Method Toilet Diaper # Voids 1 Weight 81.647 kg 81.647 kg 11/12/21 02:30 11/12/21 02:30
--- NOTE | 2021-11-12 13:34 | P.GSCN ---
History of Present Illness Consult date: 11/12/21 History of present illness: REASON FOR CONSULTATION: Abdominal pain HISTORY OF PRESENT ILLNESS: The patient is a 66 year old female presents with generalized abdominal pain ongoing for over 1 week. She reports the pain grew worse in the last 3 days. She had seen her surgeon over 1 week ago for similar abdominal pain. Her surgical history is significant for incisional hernia repair 4 months ago. She was wearing an abdominal binder that would help with her pain. She has had multiple abdominal surgeries including right colectomy for sigmoid volvulus in 2018, laparoscopic incisional hernia repair in 2019, Josephine fundoplication in 2019, including open incarcerated incisional hernia in 2021 with multiple upper and lower endoscopies. Since admission, her generalized abdominal pain has improved. PAST MEDICAL HISTORY: See list and reviewed PAST SURGICAL HISTORY: See list and reviewed MEDICATIONS: See list and reviewed ALLERGIES: See list and reviewed SOCIAL HISTORY: See list and reviewed FAMILY HISTORY: See list and reviewed REVIEW OF ORGAN SYSTEMS: CONSTITUTIONAL: No fevers or chills. EYES: Has congenital eye disease. No glasses. HEENT: No difficulties with hearing. No nosebleeds. No difficulty swallowing. RESPIRATORY: Denies pneumonia. Denies any troubles with breathing or dyspnea on exertion. CARDIOVASCULAR: Has coronary artery disease. Has hyperlipidemia. GASTROINTESTINAL: Denies fatty food intolerance. Denies change in bowel habits and gas bloat. Has gastroesophageal reflux disease. History of hiatal hernia. Has irritable bowel syndrome. GENITOURINARY: Denies any blood in urine. Has increased urinary frequency. Has renal disease stage III disease. NEUROLOGICAL: Has numbness or tingling along the distal extremities. No seizure disorders or headaches. MUSCULOSKELETAL: Has back pain, stiffness or joint arthritis. SKIN: No current skin cancer. No rash. PSYCHIATRIC: Denies current depression or suicidal thoughts Has memory impairment. Has short term memory loss. ENDOCRINE: Denies current thyroid disorders. Has diabetes type II. HEME/LYMPHATIC: Denies any lumps and bumps around the neck. No recent deep courtney ous thrombosis. ALLERGY/IMMUNOLOGY: No immunoglobulin therapy. No immune deficiencies. BREAST: Denies current breast lumps, pain or nipple discharge. PHYSICAL EXAM: VITALS: Reviewed CONSTITUTIONAL: Well developed and in no acute distress. EYES: Conjuctivae without sclera icterus. Extraocular movements grossly intact. HEAD, EARS, NOSE, THROAT: Moist buccal mucosa. Head is atraumatic, normoce phalic. Hears conversational speech. No nasal drainage. NECK: Supple. No JV distention. No thyroidomegaly. RESPIRATORY: Non-labored respirations and equal bilateral excursions. No gross wheezes. CARDIOVASCULAR: Regular rate and rhythm. Palpable 2+ radial pulses. ABDOMEN: No peritonitis. Mild generalized tenderness. LYMPH: No neck lymphadenopathy. MUSCULOSKELETAL: Nail and fingers with good capillary refill. SKIN: Warm and well perfused with good skin turgor. NEUROLOGIC: Cranial nerves II through XII grossly intact. Sensation upper and extremities intact. No focal or lateralizing signs. PSYCH: Appropriate affect. Alert and oriented to person, place and time. Displays appropriate insight. CLINCAL LABS: Reviewed. Troponins trending upward and elevated. Potassium low at 3.2 with hypokalemia. Creatinine elevated 1.47. WBC normal at 7.5 IMAGING: Independently reviewed 11/10/21 CT of the abdomen and pelvis demonstrating fluid collection along the anterior abdominal wall. Expected surgical postoperative changes. This is my independent review. RADIOLOGY: Report reviewed of CT abdomen and pelvis from 11/10/21 demonstrated no small bowel dilation. RECORDS: previous old records reviewed of general surgical procedures 2017 to 2021 ASSESSMENT: 1. Abdominal pain, generalized 2. Post-surgical seroma of abdominal wall 3. Hypokalemia 4. Chronic renal insufficiency PLAN: 1. No acute surgical intervention for expected postoperative seroma. 2. Recommend abdominal binder for abdomnal seroma 3. Correction of hypokalemia 4. Diet as tolerated, consistent carb ADVANCE DIRECTIVE: Thank you for this kind consultation. 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 bowel resection for obstruction, amalia cataracts, Past Anesthesia/Blood Transfusion Reactions: No Reported Reaction Past Psychological History: No Psychological Hx Reported Additional Psychological History / Comment(s): short term memory loss Smoking Status: Former smoker Past Alcohol Use History: Rare Additional Past Alcohol Use History / Comment(s): quit smoking 20 yrs ago, smoked for 20 yrs Past Drug Use History: None Reported - Past Family History Mother Family Medical History: Cancer, CVA/TIA, Pulmonary Embolus Additional Family Medical History / Comment(s): breast cancer Father Family Medical History: CVA/TIA, Myocardial Infarction ([place]) Additional Family Medical History / Comment(s): . Brother(s) Family Medical History: Congestive Heart Failure (CHF) Additional Family Medical History / Comment(s): CABG Medications and Allergies Home Medications Medication Instructions Recorded Confirmed Type Aspirin 81 mg PO DAILY 60 Days #60 chew 09/20/20 11/12/21 Rx Diclofenac Sodium Gel [Voltaren 4 gm TOPICAL QID PRN 07/04/21 11/12/21 History Gel] Metoprolol Succinate (ER) [Toprol 25 mg PO DAILY 07/04/21 11/12/21 History XL] Omeprazole [PriLOSEC] 40 mg PO DAILY 07/04/21 11/12/21 History Topiramate [Topamax] 50 mg PO HS 07/04/21 11/12/21 History traZODone HCL [Desyrel] 100 mg PO HS 07/04/21 11/12/21 History Acetaminophen Tab [Tylenol] 650 mg PO Q6HR PRN tab 07/11/21 11/12/21 Rx Ascorbic Acid [Vitamin C] 500 mg PO BID tab 07/11/21 11/12/21 Rx Cholecalciferol [Vitamin D3 (25 100 mcg PO DAILY tablet 07/11/21 11/12/21 Rx Mcg = 1000 Iu)] Zinc Sulfate [Orazinc] 220 mg PO DAILY cap 07/11/21 11/12/21 Rx Gabapentin [Neurontin] 100 mg PO BID #6 cap 07/28/21 11/12/21 Rx Clotrimazole Cream [Lotrimin Cream] 1 applic TOPICAL BID 11/12/21 11/12/21 History Pantoprazole Sodium [Protonix] 40 mg PO BID 11/12/21 11/12/21 History Sucralfate [Carafate] 1 gm PO QID 11/12/21 11/12/21 History hydrALAZINE HCL [Apresoline] 50 mg PO TID 11/12/21 11/12/21 History Allergies Allergy/AdvReac Type Severity Reaction Status Date / Time morphine Allergy Rash/Hives Verified 11/12/21 12:00 sulfamethoxazole Allergy ABD PAIN Verified 11/12/21 12:00 [From Bactrim] Surgical - Exam Vital Signs Temp Pulse Resp BP Pulse Ox 98.1 F 109 H 20 147/60 96 11/11/21 20:17 11/11/21 20:17 11/11/21 20:17 11/11/21 20:17 11/11/21 20:17 Results - Labs 11/12/21 02:30 11/12/21 02:30 Abnormal Lab Results - Last 24 Hours (Table) 11/12/21 11/12/21 11/12/21 Range/Units 02:30 02:30 02:30 RBC 3.74 L (3.80-5.40) m/uL Lymphocytes # 0.6 L (1.0-4.8) k/uL APTT 20.4 L (22.0-30.0) sec Sodium 136 L (137-145) mmol/L Potassium 3.2 L (3.5-5.1) mmol/L Creatinine 1.47 H (0.52-1.04) mg/dL Glucose 160 H (74-99) mg/dL POC Glucose (mg/dL) (75-99) mg/dL Calcium 8.3 L (8.4-10.2) mg/dL Troponin I (0.000-0.034) ng/mL C-Reactive Protein 16.2 H (<1.0) mg/dL Urine Appearance (Clear) Urine Protein (Negative) Urine Ketones (Negative) Urine Blood (Negative) Urine Bilirubin (Negative) Urine Mucus (None) /hpf 11/12/21 11/12/21 11/12/21 Range/Units 02:30 05:57 07:59 RBC (3.80-5.40) m/uL Lymphocytes # (1.0-4.8) k/uL APTT (22.0-30.0) sec Sodium (137-145) mmol/L Potassium (3.5-5.1) mmol/L Creatinine (0.52-1.04) mg/dL Glucose (74-99) mg/dL POC Glucose (mg/dL) 126 H (75-99) mg/dL Calcium (8.4-10.2) mg/dL Troponin I 0.041 H* 0.082 H* (0.000-0.034) ng/mL C-Reactive Protein (<1.0) mg/dL Urine Appearance (Clear) Urine Protein (Negative) Urine Ketones (Negative) Urine Blood (Negative) Urine Bilirubin (Negative) Urine Mucus (None) /hpf 11/12/21 Range/Units 08:10 RBC (3.80-5.40) m/uL Lymphocytes # (1.0-4.8) k/uL APTT (22.0-30.0) sec Sodium (137-145) mmol/L Potassium (3.5-5.1) mmol/L Creatinine (0.52-1.04) mg/dL Glucose (74-99) mg/dL POC Glucose (mg/dL) (75-99) mg/dL Calcium (8.4-10.2) mg/dL Troponin I (0.000-0.034) ng/mL C-Reactive Protein (<1.0) mg/dL Urine Appearance Cloudy H (Clear) Urine Protein 1+ H (Negative) Urine Ketones 1+ H (Negative) Urine Blood Trace H (Negative) Urine Bilirubin 1+ H (Negative) Urine Mucus Moderate H (None) /hpf Diabetes panel 11/12/21 Range/Units 02:30 Sodium 136 L (137-145) mmol/L Potassium 3.2 L (3.5-5.1) mmol/L Chloride 100 (98-107) mmol/L Carbon Dioxide 25 (22-30) mmol/L BUN 17 (7-17) mg/dL Creatinine 1.47 H (0.52-1.04) mg/dL Glucose 160 H (74-99) mg/dL Calcium 8.3 L (8.4-10.2) mg/dL AST 33 (14-36) U/L ALT 24 (4-34) U/L Alkaline Phosphatase 116 (38-126) U/L Total Protein 6.4 (6.3-8.2) g/dL Albumin 3.9 (3.5-5.0) g/dL Calcium panel 11/12/21 Range/Units 02:30 Calcium 8.3 L (8.4-10.2) mg/dL Albumin 3.9 (3.5-5.0) g/dL Pituitary panel 11/12/21 Range/Units 02:30 Sodium 136 L (137-145) mmol/L Potassium 3.2 L (3.5-5.1) mmol/L Chloride 100 (98-107) mmol/L Carbon Dioxide 25 (22-30) mmol/L BUN 17 (7-17) mg/dL Creatinine 1.47 H (0.52-1.04) mg/dL Glucose 160 H (74-99) mg/dL Calcium 8.3 L (8.4-10.2) mg/dL Adrenal panel 11/12/21 Range/Units 02:30 Sodium 136 L (137-145) mmol/L Potassium 3.2 L (3.5-5.1) mmol/L Chloride 100 (98-107) mmol/L Carbon Dioxide 25 (22-30) mmol/L BUN 17 (7-17) mg/dL Creatinine 1.47 H (0.52-1.04) mg/dL Glucose 160 H (74-99) mg/dL Calcium 8.3 L (8.4-10.2) mg/dL Total Bilirubin 0.4 (0.2-1.3) mg/dL AST 33 (14-36) U/L ALT 24 (4-34) U/L Alkaline Phosphatase 116 (38-126) U/L Total Protein 6.4 (6.3-8.2) g/dL Albumin 3.9 (3.5-5.0) g/dL
[2021-11-12] MEDS: ATORVASTATIN 40 MG TAB PO SCH (14:05)
--- NOTE | 2021-11-12 14:22 | CA ---
Transthoracic Echo Report Name: Adriana Calderón Age: 66 Gender: F : 1955 Exam Date: 11/12/2021 10:42 Exam Location: [facility] Ht (in): 59 Wt (lb): 190 Ordering Physician: Maggie Kendall Attending/Referring Phys: [id number], [facility] [employer] Oksana Gomez RDCS Procedure CPT: Indications: elev trop Cardiac Hx: Family History of Coronary Artery Disease. Technical Quality: Fair Contrast 1: Total Dose (mL): Contrast 2: Total Dose (mL): MEASUREMENTS (Male / Female) Normal Values 2D ECHO LV Diastolic Diameter PLAX 3.6 cm 4.2 - 5.9 / 3.9 - 5.3 cm LV Systolic Diameter PLAX 3.1 cm IVS Diastolic Thickness 1.0 cm 0.6 - 1.0 / 0.6 - 0.9 cm LVPW Diastolic Thickness 1.1 cm 0.6 - 1.0 / 0.6 - 0.9 cm LV Relative Wall Thickness 0.6 RV Internal Dim ED PLAX 3.1 cm LA Systolic Diameter LX 3.3 cm 3.0 - 4.0 / 2.7 - 3.8 cm LA Volume 51.1 cm??? 18 - 58 / 22 - 52 cm??? M-MODE Aortic Root Diameter MM 3.2 cm MV E Point Septal Separation 0.3 cm DOPPLER AV Peak Velocity 145.9 cm/s AV Peak Gradient 8.5 mmHg MV Area PHT 5.0 cm??? Mitral E Point Velocity 109.5 cm/s Mitral A Point Velocity 126.8 cm/s Mitral E to A Ratio 0.9 MV Deceleration Time 153.1 ms MV E' Velocity 7.1 cm/s Mitral E to MV E' Ratio 15.4 TR Peak Velocity 270.6 cm/s TR Peak Gradient 29.3 mmHg Right Ventricular Systolic Press 34.2 mmHg FINDINGS Left Ventricle Left ventricular ejection fraction is estimated at 55-60 %. Left ventricular wall thickness normal. Left ventricular cavity size normal. Right Ventricle Normal right ventricular size and function. Mild pulmonary hypertension. Right Atrium Normal right atrial size. Left Atrium Normal left atrial size. Mitral Valve Structurally normal mitral valve. No mitral stenosis, regurgitation or prolapse. Aortic Valve Focal thickening of the aortic valve cusps. No aortic valve stenosis or regurgitation. Tricuspid Valve Mild tricuspid regurgitation. Pulmonic Valve Structurally normal pulmonic valve. Pericardium Normal pericardium. Aorta Normal size aortic root and proximal ascending aorta. CONCLUSIONS Normal LV size and systolic function. Left ventricular contractility is vigorous. Mild aortic valve sclerosis. Normal stenosis. There is mild mitral and tricuspid insufficiency. No pericardial effusion Previewed by: Dr. Katina Hickey MD (Electronically Signed) Final Date: 12 Nov 2021 14:21
[2021-11-12 16:45] LABS: Glucose,Whole Blood 188 mg/dL (75-99)
[2021-11-12 20:28] LABS: Glucose,Whole Blood 175 mg/dL (75-99)
[2021-11-12] MEDS: HEPARIN SODIUM,PORCINE/PF 5,000 UNIT/0.5 ML SYRINGE SQ SCH (21:31)
[2021-11-12] MEDS: TOPIRAMATE 25 MG TAB PO SCH (21:31)
[2021-11-12] MEDS: traZODone HCL 100 MG TAB PO SCH (21:31)
[2021-11-12] MEDS: METOPROLOL TARTRATE 50 MG TAB PO SCH (21:31)
[2021-11-12] MEDS: GABAPENTIN 100 MG CAP PO SCH (21:31)
[2021-11-12] MEDS: ASCORBIC ACID 500 MG TAB PO SCH (21:31)
[2021-11-12] MEDS: CLOTRIMAZOLE 1% CREAM 30 GM TUBE TOPICAL SCH (21:32)
[2021-11-13 06:02] LABS: Glucose,Whole Blood 99 mg/dL (75-99)
[2021-11-13] MEDS: INSULIN ASPART (NovoLOG) 100 UNIT/ML VIAL SQ SCH ×4 (07:21→20:16)
[2021-11-13] MEDS: PANTOPRAZOLE 40 MG TABLET PO SCH (07:23)
[2021-11-13] MEDS: SODIUM CHLORIDE 0.9% 1,000 ML IV SCH ×3 (07:24→20:31)
[2021-11-13] MEDS: HEPARIN SODIUM,PORCINE/PF 5,000 UNIT/0.5 ML SYRINGE SQ SCH ×2 (08:29→20:15)
[2021-11-13] MEDS: CHOLECALCIFEROL 25 MCG (1000 IU) TABLET PO SCH (08:29)
[2021-11-13] MEDS: METOPROLOL TARTRATE 50 MG TAB PO SCH ×2 (08:30→20:14)
[2021-11-13] MEDS: ATORVASTATIN 40 MG TAB PO SCH (08:30)
[2021-11-13] MEDS: ACETAMINOPHEN TAB 325 MG TAB PO PRN ×2 (08:30→20:14)
[2021-11-13] MEDS: ZINC SULFATE 220 MG CAP PO SCH (08:30)
[2021-11-13] MEDS: ASPIRIN 81 MG PO SCH (08:30)
[2021-11-13] MEDS: GABAPENTIN 100 MG CAP PO SCH ×2 (08:31→20:14)
[2021-11-13] MEDS: ASCORBIC ACID 500 MG TAB PO SCH ×2 (08:31→20:14)
[2021-11-13 09:50] LABS: Basophils % (A) 0 %; Eosinophils # (A) 0.2 k/uL (0-0.7); Eosinophils % (A) 2 %; HGB 10.7 gm/dL (11.4-16.0); Lymphocytes # (A) 0.5 k/uL (1.0-4.8); Lymphocytes % (A) 6 %; MCH 31.2 pg (25.0-35.0); MCHC 31.5 g/dL (31.0-37.0); Mean Platelet Volume 8.7; Monocytes # (A) 0.3 k/uL (0-1.0); Monocytes % (A) 4 %; Neutrophils # (A) 6.9 k/uL (1.3-7.7); Neutrophils % (A) 86 %; Platelet Count 167 k/uL (150-450); RBC 3.43 m/uL (3.80-5.40); RDW 12.9 % (11.5-15.5)
[2021-11-13 10:02] LABS: Albumin 3.3 g/dL (3.5-5.0); Calcium 7.8 mg/dL (8.4-10.2); Potassium 4.2 mmol/L (3.5-5.1); Total Bilirubin 0.6 mg/dL (0.2-1.3); Total Protein 5.7 g/dL (6.3-8.2)
--- NOTE | 2021-11-13 11:08 | XR ---
EXAMINATION TYPE: XR chest 2V DATE OF EXAM: 11/13/2021 COMPARISON: Chest x-ray July 10, 2021 HISTORY: Hypoxia. TECHNIQUE: Frontal and lateral views of the chest are obtained. FINDINGS: There is no suspicious new focal air space opacity, pleural effusion, or pneumothorax seen . The cardiac silhouette size is slightly less prominent and measures upper limits of normal current ly. The osseous structures are intact. Cholecystectomy clips are present. IMPRESSION: No acute pulmonary process.
[2021-11-13] MEDS: HYDROmorphone 1 MG/ML 1 ML SYRINGE IVP PRN ×2 (12:06→20:15)
[2021-11-13 12:07] LABS: Glucose,Whole Blood 151 mg/dL (75-99)
--- NOTE | 2021-11-13 13:39 | P.PN ---
Subjective Progress Note Date: 11/13/21 Patient is a pleasant 64-year-old female came in with compensative back pain in the upper lumbar lower thoracic area radiating around the upper abdomen and lower chest. Patient is mildly elevated troponins because of his cardiac was consulted on the patient has a normal EKG. Patient troponins are 0.041 and 0.082. Patient is also found to have mildly elevated creatinine of 1.47 baseline is around 1.1 patient pain appears to be back pain with thoracic- lumbar degenerative disc disease patient had history of abdominal surgeries and multiple hospitalizations in the past because of abdominal pain although this appears to be different from her previous auscultations patient had a recent CT of the abdomen which was essentially within normal limits patient has an acute abdominal series which was within normal limits. 11/13/2021 Patient evaluated today resting in bed. She complaints of abdominal pain generalized as crampy and nausea. No vomiting, however she is having diarrhea about 3 times so far today. Continue with ultram for pain and dilaudid for breakthrough pain. Will check a C Dif and if negative can start immodium. Echocardiogram is showing EF 55 to 60% with mild pulmonary hypertension, and mild TR. Chest xray today showing no acute process. Labs today showing white count 8.0, hgb 10.7, sodium 132, potassium 4.2, CO2 19, BUN 13, creat 1.16, blood glucose improved to the 150s, Liver enzymes are elevated now with AST 84, ALT 45, Alk phos 137. Blood cultures are pending. Surgery is recommending to wear an abdominal binder, and continue to monitor, no surgical recommendation. Troponin level today 0.283 which has continued to rise since admission from 0.041. Pending recommendations from cardiology and surgery. Patient will low grade fever 99.2, heart rate 93, blood pressure 126/65, 93% on room air. Review of Systems Constitutional: Denied any fatigue denied any fever. Cardio vascular: denied any chest pain, palpitations Gastrointestinal: Reports nausea, no vomiting. Having diarrhea x 3. No blood in stool. Pulmonary: Denied any shortness of breath, cough Neurologic denied any new focal deficits All inpatient medications were reviewed and appropriate changes in these medications as dictated in the interval history and assessment and plan. PHYSICAL EXAMINATION: GENERAL: The patient is alert and oriented x3, She is moaning and holding her abdommen. Well developed, well nourished. Obese. HEENT: Pupils are round and equally reacting to light. EOMI. No scleral icterus. No conjunctival pallor. Normocephalic, atraumatic. No pharyngeal erythema. No thyromegaly. CARDIOVASCULAR: S1 and S2 present. No murmurs, rubs, or gallops. PULMONARY: Chest is clear to auscultation, no wheezing or crackles. ABDOMEN: Soft, mild tenderness throughout, nondistended, normoactive bowel sounds. No palpable organomegaly. MUSCULOSKELETAL: No joint swelling or deformity. EXTREMITIES: No cyanosis, clubbing, or pedal edema. NEUROLOGICAL: Gross neurological examination did not reveal any focal deficits. SKIN: No rashes. Assessment and plan -Abdominal pain with nausea, patient has postoperative seroma, however she is also having multiple episodes of diarrhea, will check C-dif and also abdominal pelvis CT. -Chest pain: Secondary to thoraco-lumbar vertebral disease, chest pain appears to be atypical and noncardiac etiology -Patient's mild elevation in troponins secondary to renal failure, EF 55 to 60% -Mild acute renal failure possibility of prerenal azotemia is probably some chronic kidney disease stage II, creat 1.47 on admission, improved to 1.16 with IV fluids -Hypokalemia: Natriuretic hypokalemia secondary to IV fluids, potassium will be replaced now 4.2 today -Mild elevated LFT's repeat tomorrow -Chronic back pain: Supportive care, physical therapy and occupational therapy evaluation -Coronary artery disease history -Diabetes mellitus -Gastroesophageal reflux disease -Hyperlipidemia -Peripheral vascular disease DVT prophylaxis: Subcutaneous heparin GI prophylaxis: PPI Full Code Plan Continue IV fluids Repeat labs in AM Check Cdif, immodium if negative Appreciate surgical, cardiology consultation Abdominal/Pelvis CT Continue pain management, antiemetics The impression and plan of care has been dictated by Julia Batres Nurse Practitioner as directed. Dr. Trupti MD I have performed a history and physical examination and medical decision making of this patient, discussed the same with the dictator, and agree with the dictators assessment and plan as written, documented as a scribe. Based on total visit time, I have performed more than 50% of this visit. Objective - Vital Signs Vital signs: Vital Signs Temp 98.1 F 11/13/21 08:03 Pulse 93 11/13/21 08:03 Resp 18 11/13/21 08:03 BP 126/65 11/13/21 08:03 Pulse Ox 93 L 11/13/21 08:03 Intake & Output 11/12/21 11/13/21 11/13/21 18:59 06:59 18:59 Intake Total 118 118 Output Total 0 Balance 118 0 118 Weight 85 kg Intake: Oral 118 118 Output: Urine 0 Other: Voiding Method Toilet Toilet Toilet Diaper Diaper Diaper # Voids 1 1 # Bowel Movements 1 1 - Labs CBC & Chem 7: 11/13/21 09:04 11/13/21 09:04 Labs: Abnormal Lab Results - Last 24 Hours (Table) 11/12/21 11/12/21 11/12/21 Range/Units 10:35 16:43 20:17 RBC (3.80-5.40) m/uL Hgb (11.4-16.0) gm/dL Lymphocytes # (1.0-4.8) k/uL Sodium (137-145) mmol/L Carbon Dioxide (22-30) mmol/L Creatinine (0.52-1.04) mg/dL Glucose (74-99) mg/dL POC Glucose (mg/dL) 188 H 175 H (75-99) mg/dL Calcium (8.4-10.2) mg/dL AST (14-36) U/L ALT (4-34) U/L Alkaline Phosphatase (38-126) U/L Troponin I 0.111 H* (0.000-0.034) ng/mL Total Protein (6.3-8.2) g/dL Albumin (3.5-5.0) g/dL 11/13/21 11/13/21 11/13/21 Range/Units 09:04 09:04 09:04 RBC 3.43 L (3.80-5.40) m/uL Hgb 10.7 L (11.4-16.0) gm/dL Lymphocytes # 0.5 L (1.0-4.8) k/uL Sodium 134 L (137-145) mmol/L Carbon Dioxide 19 L (22-30) mmol/L Creatinine 1.16 H (0.52-1.04) mg/dL Glucose 190 H (74-99) mg/dL POC Glucose (mg/dL) (75-99) mg/dL Calcium 7.8 L (8.4-10.2) mg/dL AST 84 H (14-36) U/L ALT 45 H (4-34) U/L Alkaline Phosphatase 137 H (38-126) U/L Troponin I 0.283 H* (0.000-0.034) ng/mL Total Protein 5.7 L (6.3-8.2) g/dL Albumin 3.3 L (3.5-5.0) g/dL 11/13/21 Range/Units 12:06 RBC (3.80-5.40) m/uL Hgb (11.4-16.0) gm/dL Lymphocytes # (1.0-4.8) k/uL Sodium (137-145) mmol/L Carbon Dioxide (22-30) mmol/L Creatinine (0.52-1.04) mg/dL Glucose (74-99) mg/dL POC Glucose (mg/dL) 151 H (75-99) mg/dL Calcium (8.4-10.2) mg/dL AST (14-36) U/L ALT (4-34) U/L Alkaline Phosphatase (38-126) U/L Troponin I (0.000-0.034) ng/mL Total Protein (6.3-8.2) g/dL Albumin (3.5-5.0) g/dL Microbiology - Last 24 Hours (Table) 11/12/21 04:20 Blood Culture - Preliminary Blood No Growth after 24 hours 11/12/21 04:40 Blood Culture - Preliminary Blood No Growth after 24 hours Assessment and Plan Time with Patient: Less than 30
--- NOTE | 2021-11-13 14:50 | P.PN ---
Subjective Progress Note Date: 11/13/21 CHIEF COMPLAINT: Abdominal pain HISTORY OF PRESENT ILLNESS: The patient is a 66 year old female presents with generalized abdominal pain ongoing for over 1 week. She has complicated surgical history including repair of recurrent incisional hernia over 3-4 months ago. She reports abdominal pain is stable. She is pending an abdominal binder REVIEW OF ORGAN SYSTEMS: No fevers or chills. Troponins continued to elevate. Denies shortness of breath. PHYSICAL EXAM: VITALS: Reviewed CONSTITUTIONAL: Well developed and in no acute distress. EYES: Conjuctivae without sclera icterus. Extraocular movements grossly intact. HEAD, EARS, NOSE, THROAT: Moist buccal mucosa. Head is atraumatic, normocep halic. Hears conversational speech. No nasal drainage. Wears glasses. RESPIRATORY: Non-labored respirations and equal bilateral excursions. No gross wheezes. CARDIOVASCULAR: Palpable 2+ radial pulses. ABDOMEN: No peritonitis. MUSCULOSKELETAL: No clubbing cyanosis or edema. SKIN: Warm and well perfused with good skin turgor. NEUROLOGIC: Cranial nerves II through XII grossly intact. No focal or lateralizing signs. PSYCH: Flat affect. Alert to person. CLINCAL LABS: Reviewed. WBC normal. Troponins continued to elevate. ASSESSMENT: 1. Abdominal pain, generalized 2. Post-surgical seroma of abdominal wall 3. Hypokalemia 4. Chronic renal insufficiency 5. Elevated troponin 6. History of incisional hernia repair PLAN: 1. Abdominal binder reordered. 2. Diet as tolerated Objective - Vital Signs Vital signs: Vital Signs Temp 98.1 F 11/13/21 11:35 Pulse 75 11/13/21 13:45 Resp 18 11/13/21 13:45 BP 115/71 11/13/21 11:35 Pulse Ox 94 L 11/13/21 11:35 Intake & Output 11/12/21 11/13/21 11/13/21 18:59 06:59 18:59 Intake Total 118 118 Output Total 0 Balance 118 0 118 Weight 85 kg Intake: Oral 118 118 Output: Urine 0 Other: Voiding Method Toilet Toilet Toilet Diaper Diaper Diaper # Voids 1 1 1 # Bowel Movements 1 1 1 - Labs CBC & Chem 7: 11/13/21 09:04 11/13/21 09:04 Labs: Abnormal Lab Results - Last 24 Hours (Table) 11/12/21 11/12/21 11/13/21 Range/Units 16:43 20:17 09:04 RBC 3.43 L (3.80-5.40) m/uL Hgb 10.7 L (11.4-16.0) gm/dL Lymphocytes # 0.5 L (1.0-4.8) k/uL Sodium (137-145) mmol/L Carbon Dioxide (22-30) mmol/L Creatinine (0.52-1.04) mg/dL Glucose (74-99) mg/dL POC Glucose (mg/dL) 188 H 175 H (75-99) mg/dL Calcium (8.4-10.2) mg/dL AST (14-36) U/L ALT (4-34) U/L Alkaline Phosphatase (38-126) U/L Troponin I (0.000-0.034) ng/mL Total Protein (6.3-8.2) g/dL Albumin (3.5-5.0) g/dL 11/13/21 11/13/21 11/13/21 Range/Units 09:04 09:04 12:06 RBC (3.80-5.40) m/uL Hgb (11.4-16.0) gm/dL Lymphocytes # (1.0-4.8) k/uL Sodium 134 L (137-145) mmol/L Carbon Dioxide 19 L (22-30) mmol/L Creatinine 1.16 H (0.52-1.04) mg/dL Glucose 190 H (74-99) mg/dL POC Glucose (mg/dL) 151 H (75-99) mg/dL Calcium 7.8 L (8.4-10.2) mg/dL AST 84 H (14-36) U/L ALT 45 H (4-34) U/L Alkaline Phosphatase 137 H (38-126) U/L Troponin I 0.283 H* (0.000-0.034) ng/mL Total Protein 5.7 L (6.3-8.2) g/dL Albumin 3.3 L (3.5-5.0) g/dL Microbiology - Last 24 Hours (Table) 11/12/21 04:20 Blood Culture - Preliminary Blood No Growth after 24 hours 11/12/21 04:40 Blood Culture - Preliminary Blood No Growth after 24 hours
[2021-11-13] MEDS: IOPAMIDOL CONTRAST (ORAL USE) VIAL PO PRN ×2 (16:03→17:04)
[2021-11-13] MEDS: CLOTRIMAZOLE 1% CREAM 30 GM TUBE TOPICAL SCH ×3 (16:04→20:32)
[2021-11-13 16:36] LABS: Glucose,Whole Blood 189 mg/dL (75-99)
--- NOTE | 2021-11-13 18:17 | CT ---
EXAMINATION TYPE: CT abdomen pelvis wo con DATE OF EXAM: 11/13/2021 COMPARISON: 11/10/2021 HISTORY: Abdominal pain and diarrhea. CT DLP: 1450.3 mGycm Automated exposure control for dose reduction was used. TECHNIQUE: Helical acquisition of images was performed from the lung bases through the pelvis. FINDINGS: LUNG BASES: No significant abnormality is appreciated. LIVER/GB: No significant abnormality is appreciated. Cholecystectomy seen. PANCREAS: No significant abnormality is seen. SPLEEN: No significant abnormality is seen. ADRENALS: No significant abnormality is seen. KIDNEYS: No acute abnormality is seen. Stable 2.8 cm simple appearing left renal cyst. FREE AIR: No free air is visualized RETROPERITONEAL ADENOPATHY: None visualized REPRODUCTIVE ORGANS: No significant abnormality is seen URINARY BLADDER: No significant abnormality is seen. PELVIC ADENOPATHY: None visualized. OSSEOUS STRUCTURES: No significant abnormality is seen. BOWEL: No acute abnormality is seen. Small hiatal hernia again seen. Ventral hernia repair. OTHER: None IMPRESSION: NO ACUTE ABNORMALITY. VENTRAL HERNIA REPAIR WITHOUT SIGNIFICANT RESIDUAL FLUID AT SURGICAL SITE. ADDITIONAL CHRONIC AND INCIDENTAL FINDINGS ABOVE.
[2021-11-13 19:56] LABS: Glucose,Whole Blood 137 mg/dL (75-99)
[2021-11-13] MEDS: traZODone HCL 100 MG TAB PO SCH (20:14)
[2021-11-13] MEDS: TOPIRAMATE 25 MG TAB PO SCH (20:14)
[2021-11-14] MEDS ORDERED: ACETAMINOPHEN TAB 325 MG TAB ONE (04:50)
[2021-11-14] MEDS ORDERED: HYDROmorphone 1 MG/ML 1 ML SYRINGE ONE (04:50)
[2021-11-14 05:17] LABS: Glucose,Whole Blood 112 mg/dL (75-99)
[2021-11-14 06:45] LABS: Glucose,Whole Blood 109 mg/dL (75-99)
[2021-11-14] MEDS: INSULIN ASPART (NovoLOG) 100 UNIT/ML VIAL SQ SCH ×4 (06:59→20:13)
[2021-11-14] MEDS: PANTOPRAZOLE 40 MG TABLET PO SCH (07:02)
[2021-11-14] MEDS: SODIUM CHLORIDE 0.9% 1,000 ML IV SCH ×3 (07:17→23:33)
[2021-11-14 08:22] LABS: Basophils % (A) 0 %; Eosinophils # (A) 0.2 k/uL (0-0.7); Eosinophils % (A) 2 %; HCT 31.8 % (34.0-46.0); Lymphocytes # (A) 0.6 k/uL (1.0-4.8); Lymphocytes % (A) 7 %; MCH 30.8 pg (25.0-35.0); MCHC 31.5 g/dL (31.0-37.0); MCV 97.8 fL (80.0-100.0); Mean Platelet Volume 8.5; Monocytes # (A) 0.3 k/uL (0-1.0); Monocytes % (A) 4 %; Neutrophils # (A) 7.7 k/uL (1.3-7.7); Neutrophils % (A) 86 %; Platelet Count 186 k/uL (150-450); RBC 3.25 m/uL (3.80-5.40); RDW 12.8 % (11.5-15.5); WBC 8.9 k/uL (3.8-10.6)
[2021-11-14 08:36] LABS: Albumin 2.8 g/dL (3.5-5.0); Calcium 7.5 mg/dL (8.4-10.2); Potassium 4.1 mmol/L (3.5-5.1); Total Bilirubin 0.7 mg/dL (0.2-1.3); Total Protein 5.2 g/dL (6.3-8.2)
[2021-11-14] MEDS: ASCORBIC ACID 500 MG TAB PO SCH ×2 (09:41→20:17)
[2021-11-14] MEDS: HEPARIN SODIUM,PORCINE/PF 5,000 UNIT/0.5 ML SYRINGE SQ SCH ×2 (09:41→20:17)
[2021-11-14] MEDS: CHOLECALCIFEROL 25 MCG (1000 IU) TABLET PO SCH (09:41)
[2021-11-14] MEDS: ATORVASTATIN 40 MG TAB PO SCH (09:41)
[2021-11-14] MEDS: METOPROLOL TARTRATE 50 MG TAB PO SCH ×2 (09:41→20:17)
[2021-11-14] MEDS: ASPIRIN 81 MG PO SCH (09:41)
[2021-11-14] MEDS: ZINC SULFATE 220 MG CAP PO SCH (09:41)
[2021-11-14] MEDS: GABAPENTIN 100 MG CAP PO SCH ×2 (09:41→20:17)
[2021-11-14] MEDS: CLOTRIMAZOLE 1% CREAM 30 GM TUBE TOPICAL SCH ×2 (09:42→20:18)
[2021-11-14] MEDS: traMADol 50 MG TAB PO PRN (09:45)
[2021-11-14 11:36] LABS: Glucose,Whole Blood 159 mg/dL (75-99)
--- NOTE | 2021-11-14 12:23 | XR ---
Right hip HISTORY: Pain 2 views of the right hip Retained contrast is present within the colon. Bone mineralization, joint spaces and alignment are maintained. There is no fracture or dislocation. IMPRESSION: No abnormality evident to account for patient's symptoms.
[2021-11-14] MEDS: polyethylene glycoL 3350 17 GM POWD.PACK PO SCH (12:45)
--- NOTE | 2021-11-14 14:52 | P.PN ---
Subjective Progress Note Date: 11/14/21 This is a 66-year-old female with past medical history of recent incarcerated incisional hernia repair with mesh and lysis of adhesions on 07/08/2021, readmitted with recurrent abdominal pain .Returned to the ER on 11/10 with similar presentation as on prior visits, reporting " mid epigastric pain radiating across bilateral total quadrants, worse on the right side". KUB reportedly nonacute abdomen, no evidence of constipation no adverse change, clearing of dilated gas-filled small bowel in the mid abdomen compared to old exam, clearing of increased density over the abdomen suggestive of ascites evid ent on the old exam .CT of abdomen and pelvis with contrast reported postsurgical change along the anterior abdominal wall with prior mesh repair, subcutaneous air seen on 07/28/2021 resolved though a platelike fluid collection remains measuring 9.5 x 6.1 cm and 1.1 cm plaque along the superficial fascia, chronic seroma versus abscess are possibilities. previous partial right hemothorax colectomy but with new right mid abdominal mesenteric nodularity measuring up to 1.1 cm, recurrent disease with new metastatic nodes are not excluded at this time versus reactive , prominent fluid within the lower abdominal small bowel loops and some liquid stool in the transverse colon- correlate for enteritis,s/p rosibel fundoplication but with recurrent tiny hiatal hernia.Mild circumferentail wall thickening distal esophagus possibly esophigitis. Returned to the ER on 11/12 , admitted with ongoing abdominal pain accompanied by nausea with no emesis and fevers. Reports most recent bowel movement yesterday. Denies bleeding or dark stools. T-max 101.1, normal WBC. Creatinine 1.14 Patient complaining of right hip pain, right hip x-ray reviewed completed reporting no fracture or dislocation, no abnormality evident. Objective - Vital Signs Vital signs: Vital Signs Temp 99.7 F H 11/14/21 08:00 Pulse 80 11/14/21 08:00 Resp 16 11/14/21 08:00 BP 122/70 11/14/21 08:00 Pulse Ox 93 L 11/14/21 08:00 FiO2 21 11/13/21 07:34 Intake & Output 11/13/21 11/14/21 11/14/21 18:59 06:59 18:59 Intake Total 688 Balance 688 Weight 85 kg Intake: Oral 688 Other: Voiding Method Toilet Toilet Toilet Diaper Diaper Diaper # Voids 1 2 # Bowel Movements 1 - Exam - Exam VITAL SIGNS: [As above] GENERAL: Sitting up in bed, currently rating abdominal pain at a 5 out of 10, Eyes: PERRL, EOMI, conjunctiva normal HENT: normocephalic, Neck: supple, no JVD Lungs: normal respiratory effort, no wheezes or rales CV: Regular rate and rhythm, no murmur. Peripheral pulses 2+ Abdomen: soft, nondistended, no organomegaly.Diffuse abdominal tende rness,positive bowel sounds. Skin: warm and dry. Neuro: Cranial nerves 2 through 12 grossly intact, no focal deficits - Labs CBC & Chem 7: 11/14/21 07:55 11/14/21 07:55 Labs: Abnormal Lab Results - Last 24 Hours (Table) 11/13/21 11/13/21 11/14/21 Range/Units 16:34 19:55 02:41 RBC (3.80-5.40) m/uL Hgb (11.4-16.0) gm/dL Hct (34.0-46.0) % Lymphocytes # (1.0-4.8) k/uL Sodium (137-145) mmol/L Carbon Dioxide (22-30) mmol/L Creatinine (0.52-1.04) mg/dL Glucose (74-99) mg/dL POC Glucose (mg/dL) 189 H 137 H 112 H (75-99) mg/dL Calcium (8.4-10.2) mg/dL AST (14-36) U/L ALT (4-34) U/L Alkaline Phosphatase (38-126) U/L Total Protein (6.3-8.2) g/dL Albumin (3.5-5.0) g/dL 11/14/21 11/14/21 11/14/21 Range/Units 06:27 07:55 07:55 RBC 3.25 L (3.80-5.40) m/uL Hgb 10.0 L (11.4-16.0) gm/dL Hct 31.8 L (34.0-46.0) % Lymphocytes # 0.6 L (1.0-4.8) k/uL Sodium 134 L (137-145) mmol/L Carbon Dioxide 20 L (22-30) mmol/L Creatinine 1.14 H (0.52-1.04) mg/dL Glucose 146 H (74-99) mg/dL POC Glucose (mg/dL) 109 H (75-99) mg/dL Calcium 7.5 L (8.4-10.2) mg/dL AST 77 H (14-36) U/L ALT 56 H (4-34) U/L Alkaline Phosphatase 150 H (38-126) U/L Total Protein 5.2 L (6.3-8.2) g/dL Albumin 2.8 L (3.5-5.0) g/dL 11/14/21 Range/Units 11:34 RBC (3.80-5.40) m/uL Hgb (11.4-16.0) gm/dL Hct (34.0-46.0) % Lymphocytes # (1.0-4.8) k/uL Sodium (137-145) mmol/L Carbon Dioxide (22-30) mmol/L Creatinine (0.52-1.04) mg/dL Glucose (74-99) mg/dL POC Glucose (mg/dL) 159 H (75-99) mg/dL Calcium (8.4-10.2) mg/dL AST (14-36) U/L ALT (4-34) U/L Alkaline Phosphatase (38-126) U/L Total Protein (6.3-8.2) g/dL Albumin (3.5-5.0) g/dL Microbiology - Last 24 Hours (Table) 11/12/21 04:40 Blood Culture - Preliminary Blood No Growth after 48 hours 11/12/21 04:20 Blood Culture - Preliminary Blood No Growth after 48 hours Assessment and Plan Assessment: Recurrent Abdominal pain with nausea and fevers in a patient with recent incarcerated incisional hernia repair with mesh and lysis of adhesions, 07/08/2021, multiple readmissions.Possible postop seroma, possible abscess, new metastatic or reactive nodes, recurrent tiny hiatal hernia and possible mild enteritis reported per CT. workup in progress Mildly elevated LFTs, etiology unclear Elevated troponin, no ACS as per cardiology, suspect related to renal failure. Acute on chronic renal failure, stage III Gastroesophageal reflux disease Post op Anemia history of migraines CAD PVD Hypertension Diabetes Melllitus Recent Acute Covid infection Memory impairment, history of Obesity, BMI 37.8 Diarrhea and constipation, possible chronic IBS, advised previously to follow-up outpatient with Dr. Ashlie Reeves, GI. Plan: Continue on current medication regime ,monitoring and symptomatic treatment. MiraLAX added to daily regimen. PPI added for GI prophylaxis. Oncology consulted regarding possible new metastatic versus reactive nodes per CT . Ongoing fevers with CT suggestive of possible seroma, possible abscess, Zosyn initiated, infectious disease consulted. The impression and plan of care has been dictated as directed. : I performed a history and examination of this patient, discussed the same with the dictator. I agree with the dictator's note ,documented as a scribe. Any additional findings or plans will be noted.
--- NOTE | 2021-11-14 15:20 | P.PN ---
Subjective Progress Note Date: 11/14/21 CHIEF COMPLAINT: Abdominal pain HISTORY OF PRESENT ILLNESS: The patient is a 66 year old female presents with generalized abdominal pain ongoing for over 1 week. She has complicated surgical history including repair of recurrent incisional hernia over 3-4 months ago. Today the patient is complaining of abdominal pain more on the right side. She also complains of right hip pain. is at bedside. He reports the patient initially was having constipation and then started having diarrhea. Her last loose stool was yesterday afternoon. Patient has been febrile. With temps of 101.1 white count 8.9 hemoglobin is 10 computed tomography scan of abdomen and pelvis without contrast shows no acute abnormality. Ventral hernia repair without significant residual fluid at surgical site. PHYSICAL EXAM: VITAL SIGNS: Reviewed. GENERAL: Well-developed in no acute distress. HEENT: No sclera icterus. Extraocular movements grossly intact. Moist buccal mucosa. Head is atraumatic, normocephalic. ABDOMEN: Soft. Nondistended. Tender with palpation of the right side of the abdomen. Old incision is healed and scarred. NEUROLOGIC: Alert and oriented. Cranial nerves II through XII grossly intact. ASSESSMENT: 1. Abdominal pain 2. Post-surgical seroma of abdominal wall noted on CT 11/10/21. Repeat CT for this admission was negative for fluid collection. 3. Hypokalemia 4. Chronic renal insufficiency 5. Elevated troponin 6. History of incisional hernia repair PLAN: -Continue supportive care -Continue regular diet Physician Good[employer] Representative note has been reviewed by physician. Signing provider agrees with the documented findings, assessment, and plan of care. Objective - Vital Signs Vital signs: Vital Signs Temp 99.7 F H 11/14/21 08:00 Pulse 80 11/14/21 08:00 Resp 16 11/14/21 08:00 BP 122/70 11/14/21 08:00 Pulse Ox 93 L 11/14/21 08:00 FiO2 21 11/13/21 07:34 Intake & Output 11/13/21 11/14/21 11/14/21 18:59 06:59 18:59 Intake Total 688 Balance 688 Weight 85 kg Intake: Oral 688 Other: Voiding Method Toilet Toilet Toilet Diaper Diaper Diaper # Voids 1 2 # Bowel Movements 1 - Labs CBC & Chem 7: 11/14/21 07:55 11/14/21 07:55 Labs: Abnormal Lab Results - Last 24 Hours (Table) 11/13/21 11/13/21 11/14/21 Range/Units 16:34 19:55 02:41 RBC (3.80-5.40) m/uL Hgb (11.4-16.0) gm/dL Hct (34.0-46.0) % Lymphocytes # (1.0-4.8) k/uL Sodium (137-145) mmol/L Carbon Dioxide (22-30) mmol/L Creatinine (0.52-1.04) mg/dL Glucose (74-99) mg/dL POC Glucose (mg/dL) 189 H 137 H 112 H (75-99) mg/dL Calcium (8.4-10.2) mg/dL AST (14-36) U/L ALT (4-34) U/L Alkaline Phosphatase (38-126) U/L Total Protein (6.3-8.2) g/dL Albumin (3.5-5.0) g/dL 11/14/21 11/14/21 11/14/21 Range/Units 06:27 07:55 07:55 RBC 3.25 L (3.80-5.40) m/uL Hgb 10.0 L (11.4-16.0) gm/dL Hct 31.8 L (34.0-46.0) % Lymphocytes # 0.6 L (1.0-4.8) k/uL Sodium 134 L (137-145) mmol/L Carbon Dioxide 20 L (22-30) mmol/L Creatinine 1.14 H (0.52-1.04) mg/dL Glucose 146 H (74-99) mg/dL POC Glucose (mg/dL) 109 H (75-99) mg/dL Calcium 7.5 L (8.4-10.2) mg/dL AST 77 H (14-36) U/L ALT 56 H (4-34) U/L Alkaline Phosphatase 150 H (38-126) U/L Total Protein 5.2 L (6.3-8.2) g/dL Albumin 2.8 L (3.5-5.0) g/dL 11/14/21 Range/Units 11:34 RBC (3.80-5.40) m/uL Hgb (11.4-16.0) gm/dL Hct (34.0-46.0) % Lymphocytes # (1.0-4.8) k/uL Sodium (137-145) mmol/L Carbon Dioxide (22-30) mmol/L Creatinine (0.52-1.04) mg/dL Glucose (74-99) mg/dL POC Glucose (mg/dL) 159 H (75-99) mg/dL Calcium (8.4-10.2) mg/dL AST (14-36) U/L ALT (4-34) U/L Alkaline Phosphatase (38-126) U/L Total Protein (6.3-8.2) g/dL Albumin (3.5-5.0) g/dL Microbiology - Last 24 Hours (Table) 11/12/21 04:40 Blood Culture - Preliminary Blood No Growth after 48 hours 11/12/21 04:20 Blood Culture - Preliminary Blood No Growth after 48 hours
[2021-11-14 16:31] LABS: Glucose,Whole Blood 93 mg/dL (75-99)
[2021-11-14] MEDS: HYDROmorphone 1 MG/ML 1 ML SYRINGE IVP PRN (16:53)
[2021-11-14] MEDS: PIPERACILLIN-TAZOBACTAM 3.375 GM in SODIUM CHLORIDE 0.9% 100 ML IVPB SCH ×2 (16:53→23:30)
[2021-11-14 20:12] LABS: Glucose,Whole Blood 91 mg/dL (75-99)
[2021-11-14] MEDS: TOPIRAMATE 25 MG TAB PO SCH (20:17)
[2021-11-14] MEDS: traZODone HCL 100 MG TAB PO SCH (20:17)
--- NOTE | 2021-11-14 23:48 | P.CONS ---
History of Present Illness - Reason for Consult Consult date: 11/14/21 - History of Present Illness Patient is a 66-year-old female presenting to the hospital on 11/11/2021 that is 3 days ago for evaluation of abdominal pain in this patient apparently was seen a day before for similar symptoms and did have CT abdominal pelvis which was negative and the patient was discharged home patient on presentation to the hospital was afebrile however subsequently patient has been spiking a fever over the last 3 days of 101 F, patient did have a normal white count did have evidence of lymphopenia there was observed mildly elevated troponin was elevated urine has been negative patient did have a acute abdominal series on the presented to the hospital no active cardiopulmonary disease bowel obstruction patient did have a CT of abdominal pelvis no gallbladder no abnormality cholecystectomy clips was seen in view of her persistent fever infectious disease was consulted for further management patient is currently being treated with Zosyn, patient denies having any headache did have mild URI symptoms denies any chest pain or shortness but did have some cough some vague abdominal pain nausea but no vomiting no abdominal pain no diarrhea or constipation Past Medical History Past Medical History: Coronary Artery Disease (CAD), Diabetes Mellitus, Eye Disorder, GERD/Reflux, Hyperlipidemia, Memory Impairment, Osteoarthritis (OA), Renal Disease, Vascular Disorder Additional Past Medical History / Comment(s): hiatal hernia, NIDDM type II-diet control, neuropathy in bilateral legs, hx chronic kidney disease stage 3, PVD, 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 bowel resection for obstruction, amalia cataracts, Past Anesthesia/Blood Transfusion Reactions: No Reported Reaction Past Psychological History: No Psychological Hx Reported Additional Psychological History / Comment(s): short term memory loss Smoking Status: Former smoker Past Alcohol Use History: Rare Additional Past Alcohol Use History / Comment(s): quit smoking 20 yrs ago, smoked for 20 yrs Past Drug Use History: None Reported - Past Family History Mother Family Medical History: Cancer, CVA/TIA, Pulmonary Embolus Additional Family Medical History / Comment(s): breast cancer Father Family Medical History: CVA/TIA, Myocardial Infarction ([place]) Additional Family Medical History / Comment(s): . Brother(s) Family Medical History: Congestive Heart Failure (CHF) Additional Family Medical History / Comment(s): CABG Medications and Allergies Home Medications Medication Instructions Recorded Confirmed Type Aspirin 81 mg PO DAILY 60 Days #60 chew 09/20/20 11/12/21 Rx Diclofenac Sodium Gel [Voltaren 4 gm TOPICAL QID PRN 07/04/21 11/12/21 History Gel] Metoprolol Succinate (ER) [Toprol 25 mg PO DAILY 07/04/21 11/12/21 History XL] Omeprazole [PriLOSEC] 40 mg PO DAILY 07/04/21 11/12/21 History Topiramate [Topamax] 50 mg PO HS 07/04/21 11/12/21 History traZODone HCL [Desyrel] 100 mg PO HS 07/04/21 11/12/21 History Acetaminophen Tab [Tylenol] 650 mg PO Q6HR PRN tab 07/11/21 11/12/21 Rx Ascorbic Acid [Vitamin C] 500 mg PO BID tab 07/11/21 11/12/21 Rx Cholecalciferol [Vitamin D3 (25 100 mcg PO DAILY tablet 07/11/21 11/12/21 Rx Mcg = 1000 Iu)] Zinc Sulfate [Orazinc] 220 mg PO DAILY cap 07/11/21 11/12/21 Rx Gabapentin [Neurontin] 100 mg PO BID #6 cap 07/28/21 11/12/21 Rx Clotrimazole Cream [Lotrimin Cream] 1 applic TOPICAL BID 11/12/21 11/12/21 History Pantoprazole Sodium [Protonix] 40 mg PO BID 11/12/21 11/12/21 History Sucralfate [Carafate] 1 gm PO QID 11/12/21 11/12/21 History hydrALAZINE HCL [Apresoline] 50 mg PO TID 11/12/21 11/12/21 History Allergies Allergy/AdvReac Type Severity Reaction Status Date / Time morphine Allergy Rash/Hives Verified 11/12/21 12:00 sulfamethoxazole Allergy ABD PAIN Verified 11/12/21 12:00 [From Bactrim] Physical Exam Vitals: Vital Signs Temp Pulse Resp BP BP Pulse Ox 11/14/21 12:00 98.4 F 82 18 117/59 95 11/14/21 08:00 99.7 F H 80 16 122/70 93 L 11/14/21 06:09 101.1 F H 11/14/21 04:00 101.1 F H 89 18 155/80 92 L 11/14/21 00:00 97.7 F 69 16 116/71 99 11/13/21 19:54 101.4 F H 111 H 18 156/95 89 L 11/13/21 16:08 97.6 F 77 18 121/74 96 Intake and Output 11/13/21 11/14/21 11/14/21 22:59 06:59 14:59 Intake Total 570 240 Balance 570 240 Intake: Oral 570 240 Other: Voiding Method Toilet Toilet Toilet Diaper Diaper Diaper # Voids 2 Results CBC & Chem 7: 11/14/21 07:55 11/14/21 07:55 Labs: Abnormal Lab Results - Last 24 Hours (Table) 11/13/21 11/13/21 11/14/21 Range/Units 16:34 19:55 02:41 RBC (3.80-5.40) m/uL Hgb (11.4-16.0) gm/dL Hct (34.0-46.0) % Lymphocytes # (1.0-4.8) k/uL Sodium (137-145) mmol/L Carbon Dioxide (22-30) mmol/L Creatinine (0.52-1.04) mg/dL Glucose (74-99) mg/dL POC Glucose (mg/dL) 189 H 137 H 112 H (75-99) mg/dL Calcium (8.4-10.2) mg/dL AST (14-36) U/L ALT (4-34) U/L Alkaline Phosphatase (38-126) U/L Total Protein (6.3-8.2) g/dL Albumin (3.5-5.0) g/dL 11/14/21 11/14/21 11/14/21 Range/Units 06:27 07:55 07:55 RBC 3.25 L (3.80-5.40) m/uL Hgb 10.0 L (11.4-16.0) gm/dL Hct 31.8 L (34.0-46.0) % Lymphocytes # 0.6 L (1.0-4.8) k/uL Sodium 134 L (137-145) mmol/L Carbon Dioxide 20 L (22-30) mmol/L Creatinine 1.14 H (0.52-1.04) mg/dL Glucose 146 H (74-99) mg/dL POC Glucose (mg/dL) 109 H (75-99) mg/dL Calcium 7.5 L (8.4-10.2) mg/dL AST 77 H (14-36) U/L ALT 56 H (4-34) U/L Alkaline Phosphatase 150 H (38-126) U/L Total Protein 5.2 L (6.3-8.2) g/dL Albumin 2.8 L (3.5-5.0) g/dL 11/14/21 Range/Units 11:34 RBC (3.80-5.40) m/uL Hgb (11.4-16.0) gm/dL Hct (34.0-46.0) % Lymphocytes # (1.0-4.8) k/uL Sodium (137-145) mmol/L Carbon Dioxide (22-30) mmol/L Creatinine (0.52-1.04) mg/dL Glucose (74-99) mg/dL POC Glucose (mg/dL) 159 H (75-99) mg/dL Calcium (8.4-10.2) mg/dL AST (14-36) U/L ALT (4-34) U/L Alkaline Phosphatase (38-126) U/L Total Protein (6.3-8.2) g/dL Albumin (3.5-5.0) g/dL Microbiology - Last 24 Hours (Table) 11/12/21 04:40 Blood Culture - Preliminary Blood No Growth after 48 hours 11/12/21 04:20 Blood Culture - Preliminary Blood No Growth after 48 hours Assessment and Plan (1) Fever Current Visit: Yes Status: Acute Code(s): R50.9 - FEVER, UNSPECIFIED SNOMED Code(s): 747114663 Plan: 1patient presented hospital with 3 days ago with some abdominal pain in this patient has been running a fever for the last 3 days patient did have CT abdominal pelvis was negative urine was negative patient did not have any elevated white count concern for possible viral syndrome as elevated levels are elevated. 2we will check influenza and COVID nasopharyngeal swab also check a CMV and EBV serology. 3we will recheck inflammatory marker. 4continue with [place] for now while waiting for the work-up to be completed. We will follow on clinical condition and cultures to further adjust medication if needed Thank you for this consultation will follow this patient along with you Time with Patient: Greater than 30
[2021-11-15 01:43] LABS: Appearance,Urine Clear (Clear); Bilirubin,Urine Negative (Negative); Blood,Urine Negative (Negative); Color,Urine Yellow; Glucose,Urine (UA) Negative (Negative); Ketones,Urine Negative (Negative); Leukocyte Esterase,Urine Negative (Negative); Nitrite,Urine Negative (Negative); PH, Urine 5.5 (5.0-8.0); Protein,Urine Trace (Negative); Specific Gravity,Urine 1.009 (1.001-1.035); Urobilinogen,Urine <2.0 mg/dL (<2.0)
[2021-11-15] MEDS: HYDROmorphone 1 MG/ML 1 ML SYRINGE IVP PRN ×3 (02:33→15:42)
[2021-11-15] MEDS: ACETAMINOPHEN TAB 325 MG TAB PO PRN ×3 (04:24→20:25)
[2021-11-15 04:33] LABS: Glucose,Whole Blood 116 mg/dL (75-99)
[2021-11-15] MEDS: INSULIN ASPART (NovoLOG) 100 UNIT/ML VIAL SQ SCH ×4 (06:35→20:26)
[2021-11-15] MEDS: PANTOPRAZOLE 40 MG TABLET PO SCH (06:35)
[2021-11-15 06:41] LABS: Glucose,Whole Blood 107 mg/dL (75-99)
[2021-11-15] MEDS: ZINC SULFATE 220 MG CAP PO SCH (08:22)
[2021-11-15] MEDS: ASPIRIN 81 MG PO SCH (08:22)
[2021-11-15] MEDS: METOPROLOL TARTRATE 50 MG TAB PO SCH ×2 (08:22→20:26)
[2021-11-15] MEDS: ATORVASTATIN 40 MG TAB PO SCH (08:22)
[2021-11-15] MEDS: PIPERACILLIN-TAZOBACTAM 3.375 GM in SODIUM CHLORIDE 0.9% 100 ML IVPB SCH ×3 (08:22→23:43)
[2021-11-15] MEDS: ASCORBIC ACID 500 MG TAB PO SCH ×2 (08:22→20:24)
[2021-11-15] MEDS: CHOLECALCIFEROL 25 MCG (1000 IU) TABLET PO SCH (08:23)
[2021-11-15] MEDS: traMADol 50 MG TAB PO PRN (08:23)
[2021-11-15] MEDS: GABAPENTIN 100 MG CAP PO SCH ×2 (08:23→20:24)
[2021-11-15] MEDS: HEPARIN SODIUM,PORCINE/PF 5,000 UNIT/0.5 ML SYRINGE SQ SCH ×2 (08:24→20:26)
[2021-11-15] MEDS: CLOTRIMAZOLE 1% CREAM 30 GM TUBE TOPICAL SCH ×2 (08:24→20:27)
[2021-11-15] MEDS: polyethylene glycoL 3350 17 GM POWD.PACK PO SCH (08:27)
[2021-11-15 11:31] LABS: Glucose,Whole Blood 106 mg/dL (75-99)
--- NOTE | 2021-11-15 13:33 | P.PN ---
Subjective Progress Note Date: 11/15/21 CHIEF COMPLAINT: Abdominal pain HISTORY OF PRESENT ILLNESS: The patient is a 66 year old female presents with generalized abdominal pain ongoing for over 1 week. Patient continues to complain of abdominal pain. She reports of the pain is more in the upper abdomen. She is having low-grade fevers as high as 100.6. Seen by infectious disease who diagnosed her with a possible viral syndrome. Patient reports that she still having diarrhea. She had 3 loose watery stools. She reports increased pain after eating greasy foods. She had a greasy breakfast. And only ate a few bites of it. She continues to report a cough as well. Influenza and Covid screening were negative. ESR elevated at 104. CRP elevated at 29.5 C. diff negative Patient seen and examined with Dr. moreno PHYSICAL EXAM: VITAL SIGNS: Reviewed. GENERAL: Well-developed in no acute distress. HEENT: No sclera icterus. Extraocular movements grossly intact. Moist buccal mucosa. Head is atraumatic, normocephalic. ABDOMEN: Soft. Nondistended. Tender with palpation of the upper abdomen. Old incision is healed and scarred. NEUROLOGIC: Alert and oriented. Cranial nerves II through XII grossly intact. ASSESSMENT: 1. Abdominal pain possibly secondary to enteritis 2. Post-surgical seroma of abdominal wall noted on CT 11/10/21. Repeat CT for this admission was negative for fluid collection. 3. Hypokalemia resolved 4. Chronic renal insufficiency 5. Elevated troponin 6. 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 Signing provider agrees with the documented findings, assessment, and plan of care. Objective - Vital Signs Vital signs: Vital Signs Temp 99.3 F 11/15/21 12:00 Pulse 76 11/15/21 12:00 Resp 18 11/15/21 12:00 BP 107/65 11/15/21 12:00 Pulse Ox 91 L 11/15/21 12:00 FiO2 21 11/13/21 07:34 Intake & Output 11/14/21 11/15/21 11/15/21 18:59 06:59 18:59 Intake Total 240 120 Balance 240 120 Intake: Oral 240 120 Other: Voiding Method Toilet Toilet Toilet Diaper Diaper Diaper # Voids 1 1 # Bowel Movements 1 1 - Labs CBC & Chem 7: 11/14/21 07:55 11/14/21 07:55 Labs: Abnormal Lab Results - Last 24 Hours (Table) 11/15/21 11/15/21 11/15/21 Range/Units 01:28 04:31 06:15 ESR (0-20) mm/hr POC Glucose (mg/dL) 116 H 107 H (75-99) mg/dL C-Reactive Protein (<1.0) mg/dL Urine Protein Trace H (Negative) 11/15/21 11/15/21 11/15/21 Range/Units 10:48 10:48 11:29 ESR 104 H (0-20) mm/hr POC Glucose (mg/dL) 106 H (75-99) mg/dL C-Reactive Protein 29.5 H (<1.0) mg/dL Urine Protein (Negative) Microbiology - Last 24 Hours (Table) 11/12/21 04:40 Blood Culture - Preliminary Blood No Growth after 72 hours 11/12/21 04:20 Blood Culture - Preliminary Blood No Growth after 72 hours
--- NOTE | 2021-11-15 15:28 | P.PN ---
Subjective Progress Note Date: 11/15/21 This is a 66-year-old female with past medical history of recent incarcerated incisional hernia repair with mesh and lysis of adhesions on 07/08/2021, readmitted with recurrent abdominal pain .Returned to the ER on 11/10 with similar presentation as on prior visits, reporting " mid epigastric pain radiating across bilateral total quadrants, worse on the right side". KUB reportedly nonacute abdomen, no evidence of constipation no adverse change, clearing of dilated gas-filled small bowel in the mid abdomen compared to old exam, clearing of increased density over the abdomen suggestive of ascites evid ent on the old exam .CT of abdomen and pelvis with contrast reported postsurgical change along the anterior abdominal wall with prior mesh repair, subcutaneous air seen on 07/28/2021 resolved though a platelike fluid collection remains measuring 9.5 x 6.1 cm and 1.1 cm plaque along the superficial fascia, chronic seroma versus abscess are possibilities. previous partial right hemothorax colectomy but with new right mid abdominal mesenteric nodularity measuring up to 1.1 cm, recurrent disease with new metastatic nodes are not excluded at this time versus reactive , prominent fluid within the lower abdominal small bowel loops and some liquid stool in the transverse colon- correlate for enteritis,s/p rosibel fundoplication but with recurrent tiny hiatal hernia.Mild circumferentail wall thickening distal esophagus possibly esophigitis. Returned to the ER on 11/12 , admitted with ongoing abdominal pain accompanied by nausea with no emesis and fevers. Reports most recent bowel movement yesterday. Denies bleeding or dark stools. T-max 101.1, normal WBC. Creatinine 1.14 Patient complaining of right hip pain, right hip x-ray reviewed completed reporting no fracture or dislocation, no abnormality evident. 11/15/2021 reports abdominal pain continues, unchanged. States pain worse in the "bilateral upper quadrants wrapping around". On previous occasions patient described abdominal pain is a twisting sensation, which currently does not exist at this time. Reports pain is not worsened by moving or eating.Denies nausea, vomiting. Positive diarrhea, negative for C. difficile colitis. T-max 100.6,Continues on IV antibiotics of Zosyn. Coronal virus, influenza type a and type B not detected. Urine legionella AG negative. CMV/EBV pending. CRP increased from 16.2-29.5, sed rate elevated, 104. Oncology consult in place, recommendations pending. Objective - Vital Signs Vital signs: Vital Signs Temp 99.3 F 11/15/21 12:00 Pulse 76 11/15/21 12:00 Resp 18 11/15/21 12:00 BP 107/65 11/15/21 12:00 Pulse Ox 91 L 11/15/21 12:00 FiO2 21 11/13/21 07:34 Intake & Output 11/14/21 11/15/21 11/15/21 18:59 06:59 18:59 Intake Total 240 240 Balance 240 240 Intake: Oral 240 240 Other: Voiding Method Toilet Toilet Toilet Diaper Diaper Diaper # Voids 1 1 # Bowel Movements 1 1 - Exam - Exam VITAL SIGNS: [As above] GENERAL: Alert and oriented 3, Sitting up in bed, no acute distress Eyes: PERRL, EOMI, conjunctiva normal HENT: normocephalic, MMM. Neck: supple, no JVD Lungs: normal respiratory effort, essentially clear, diminished bases CV: Regular rate and rhythm, no murmur. Peripheral pulses 2+ Abdomen: soft, nondistended, no organomegaly.Diffuse abdominal tenderness,positive bowel sounds. Skin: warm and dry. Neuro: Cranial nerves 2 through 12 grossly intact, no focal deficits - Labs CBC & Chem 7: 11/14/21 07:55 11/14/21 07:55 Labs: Abnormal Lab Results - Last 24 Hours (Table) 11/15/21 11/15/21 11/15/21 Range/Units 01:28 04:31 06:15 ESR (0-20) mm/hr POC Glucose (mg/dL) 116 H 107 H (75-99) mg/dL C-Reactive Protein (<1.0) mg/dL Urine Protein Trace H (Negative) 11/15/21 11/15/21 11/15/21 Range/Units 10:48 10:48 11:29 ESR 104 H (0-20) mm/hr POC Glucose (mg/dL) 106 H (75-99) mg/dL C-Reactive Protein 29.5 H (<1.0) mg/dL Urine Protein (Negative) Microbiology - Last 24 Hours (Table) 11/12/21 04:40 Blood Culture - Preliminary Blood No Growth after 72 hours 11/12/21 04:20 Blood Culture - Preliminary Blood No Growth after 72 hours Assessment and Plan Assessment: Recurrent Abdominal pain with nausea and fevers in a patient with recent incarcerated incisional hernia repair with mesh and lysis of adhesions, 07/08/2021, multiple readmissions.Possible postop seroma, possible abscess, new metastatic or reactive nodes, recurrent tiny hiatal hernia and possible mild enteritis reported per CT. workup in progress Mildly elevated LFTs, etiology unclear Elevated troponin, no ACS as per cardiology, suspect related to renal failure. Acute on chronic renal failure, stage III Gastroesophageal reflux disease Post op Anemia history of migraines CAD PVD Hypertension Diabetes Melllitus Recent Acute Covid infection Memory impairment, history of Obesity, BMI 37.8 Diarrhea and constipation, possible chronic IBS, advised previously to follow-up outpatient with Dr. Ashlie Reeves, GI. Plan: Continue on current medication regime ,monitoring and symptomatic treatment. MiraLAX discontinued . Continue on PPI. Oncology consult in place, recommendations pending. Infectious disease workup in progress. The impression and plan of care has been dictated as directed. : I performed a history and examination of this patient, discussed the same with the dictator. I agree with the dictator's note ,documented as a scribe. Any additional findings or plans will be noted.
[2021-11-15 16:27] LABS: Glucose,Whole Blood 175 mg/dL (75-99)
[2021-11-15] MEDS: SODIUM CHLORIDE 0.9% 1,000 ML IV SCH ×2 (17:12→23:44)
--- NOTE | 2021-11-15 18:05 | P.CONS ---
History of Present Illness - Reason for Consult Consult date: 11/15/[address] AP Requesting physician: Magy Seyd - Chief Complaint abd pain - History of Present Illness Mrs. Calderón is a pleasant 66-year-old female we havbe been asked to evaluate due to abnormal findings on CT AP. Pt admitted with c/o of abd pain, she has had several admissions for the same complaint over the last couple of months. She reports having multiple abdominal surgeries including right colectomy for sigmoid volvulusn 2018, several hernia repairs, most recent in Jun 2021, Josephine fundoplication in 2019. It is documented that she has had multiple upper and lower endoscopies. Since admission, her generalized abdominal pain has improved. hernia surgeries, most recent in June. CT of the abdomen and pelvis on 11/10 showed allergies within the mesentery some lymphadenopathy. Patient denies any history of autoimmune disease, cancers, no unintentional weight loss, fevers, lymph node swellings. 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 bowel resection for obstruction, amalia cataracts, Past Anesthesia/Blood Transfusion Reactions: No Reported Reaction Past Psychological History: No Psychological Hx Reported Additional Psychological History / Comment(s): short term memory loss Smoking Status: Former smoker Past Alcohol Use History: Rare Additional Past Alcohol Use History / Comment(s): quit smoking 20 yrs ago, smoked for 20 yrs Past Drug Use History: None Reported - Past Family History Mother Family Medical History: Cancer, CVA/TIA, Pulmonary Embolus Additional Family Medical History / Comment(s): breast cancer Father Family Medical History: CVA/TIA, Myocardial Infarction ([place]) Additional Family Medical History / Comment(s): . Brother(s) Family Medical History: Congestive Heart Failure (CHF) Additional Family Medical History / Comment(s): CABG Medications and Allergies Home Medications Medication Instructions Recorded Confirmed Type Aspirin 81 mg PO DAILY 60 Days #60 chew 09/20/20 11/12/21 Rx Diclofenac Sodium Gel [Voltaren 4 gm TOPICAL QID PRN 07/04/21 11/12/21 History Gel] Metoprolol Succinate (ER) [Toprol 25 mg PO DAILY 07/04/21 11/12/21 History XL] Omeprazole [PriLOSEC] 40 mg PO DAILY 07/04/21 11/12/21 History Topiramate [Topamax] 50 mg PO HS 07/04/21 11/12/21 History traZODone HCL [Desyrel] 100 mg PO HS 07/04/21 11/12/21 History Acetaminophen Tab [Tylenol] 650 mg PO Q6HR PRN tab 07/11/21 11/12/21 Rx Ascorbic Acid [Vitamin C] 500 mg PO BID tab 07/11/21 11/12/21 Rx Cholecalciferol [Vitamin D3 (25 100 mcg PO DAILY tablet 07/11/21 11/12/21 Rx Mcg = 1000 Iu)] Zinc Sulfate [Orazinc] 220 mg PO DAILY cap 07/11/21 11/12/21 Rx Gabapentin [Neurontin] 100 mg PO BID #6 cap 07/28/21 11/12/21 Rx Clotrimazole Cream [Lotrimin Cream] 1 applic TOPICAL BID 11/12/21 11/12/21 History Pantoprazole Sodium [Protonix] 40 mg PO BID 11/12/21 11/12/21 History Sucralfate [Carafate] 1 gm PO QID 11/12/21 11/12/21 History hydrALAZINE HCL [Apresoline] 50 mg PO TID 11/12/21 11/12/21 History Allergies Allergy/AdvReac Type Severity Reaction Status Date / Time morphine Allergy Rash/Hives Verified 11/12/21 12:00 sulfamethoxazole Allergy ABD PAIN Verified 11/12/21 12:00 [From Bactrim] Physical Exam Vitals: Vital Signs Temp Pulse Resp BP Pulse Ox 11/15/21 08:17 100.4 F H 83 18 122/71 95 11/15/21 08:00 83 18 11/15/21 04:00 99.4 F 92 15 155/88 100 11/14/21 23:34 98.0 F 74 17 133/77 99 11/14/21 20:00 98.3 F 83 17 132/79 93 L 11/14/21 16:00 100.6 F H 84 18 172/80 97 11/14/21 15:55 91 L 11/14/21 14:00 16 Intake and Output 11/14/21 11/15/21 11/15/21 22:59 06:59 14:59 Other: Voiding Method Toilet Toilet Toilet Diaper Diaper Diaper # Voids 1 1 # Bowel Movements 1 1 - Constitutional General appearance: average body habitus, cooperative, mild distress - EENT Eyes: anicteric sclerae, EOMI ENT: hearing grossly normal, normal oropharynx - Neck Neck: no lymphadenopathy - Respiratory Respiratory: bilateral: CTA - Cardiovascular Rhythm: regular Heart sounds: normal: S1, S2 Abnormal Heart Sounds: no systolic murmur, no diastolic murmur, no rub, no S3 Gallop, no S4 Gallop, no click, no other leg Peripheral Edema: bilateral: None - Gastrointestinal General gastrointestinal: no absent bowel sounds, no decreased bowel sounds, no distended, no hepatomegaly, no hyperactive bowel sounds, normal bowel sounds, no organomegaly, no rigid, no scaphoid, soft, no splenomegaly, tenderness, no umbilical hernia, no ventral hernia - Integumentary Integumentary: normal - Neurologic Neurologic: CNII-XII intact - Musculoskeletal Musculoskeletal: strength equal bilaterally - Psychiatric Psychiatric: A&O x's 3, appropriate affect, intact judgment & insight Results CBC & Chem 7: 11/14/21 07:55 11/14/21 07:55 Labs: Abnormal Lab Results - Last 24 Hours (Table) 11/15/21 11/15/21 11/15/21 Range/Units 01:28 04:31 06:15 POC Glucose (mg/dL) 116 H 107 H (75-99) mg/dL C-Reactive Protein (<1.0) mg/dL Urine Protein Trace H (Negative) 11/15/21 11/15/21 Range/Units 10:48 11:29 POC Glucose (mg/dL) 106 H (75-99) mg/dL C-Reactive Protein 29.5 H (<1.0) mg/dL Urine Protein (Negative) Microbiology - Last 24 Hours (Table) 11/12/21 04:40 Blood Culture - Preliminary Blood No Growth after 72 hours 11/12/21 04:20 Blood Culture - Preliminary Blood No Growth after [address] scan - abdomen: report reviewed CT scan - pelvis: report reviewed Assessment and Plan (1) Lymphadenopathy Current Visit: Yes Status: Acute Code(s): R59.1 - GENERALIZED ENLARGED LYMPH NODES SNOMED Code(s): 21633532 (2) Abdominal pain Current Visit: Yes Status: Acute Code(s): R10.9 - UNSPECIFIED ABDOMINAL PAIN SNOMED Code(s): 48039036 (3) Fever Current Visit: Yes Status: Acute Code(s): R50.9 - FEVER, UNSPECIFIED SNOMED Code(s): 121155045 (4) Anemia Current Visit: Yes Status: Acute Code(s): D64.9 - ANEMIA, UNSPECIFIED SNOMED Code(s): 260343602 Plan: Discussed with patient that quite possibly these are reactive lymph nodes. The nodes are deep in the abdomen and not able to be biopsied so, will laboratory workup will be ordered 1st. We'll follow-up on lab results. If nothing acutely is found, follow-up with a CT of the abdomen and pelvis in 2- 3 months. Case was discussed with Attending CORPORATE RELATIONS DIRECTOR. We'll update Primary Team on any other recommendations as we get information. attests: I preformed H&P, seen and examined patient, developed impression and plan of care. Discussed with dictator. Agree with documentation dictated as a scribe
[2021-11-15 18:54] LABS: % Iron Saturation 3.99 (12.00-45.00); Iron 10 ug/dL (50-170); Rheumatoid Factor, Qnt 15 IU/mL (0-15); Total Iron Binding Capacity 241 ug/dL (228-460); Vitamin B12 >2000.0 pg/mL (200.0-944.0)
[2021-11-15 20:14] LABS: Glucose,Whole Blood 172 mg/dL (75-99)
[2021-11-15] MEDS: TOPIRAMATE 25 MG TAB PO SCH (20:25)
[2021-11-15] MEDS: traZODone HCL 100 MG TAB PO SCH (20:26)
[2021-11-15 20:48] LABS: EBV-EA (IgG) <0.2 AI; EBV-EBNA(IgG) >8.0 AI; EBV-VCA (IgG) >8.0 AI; EBV-VCA (IgM) 0.3 AI
[2021-11-15 20:50] LABS: Procalcitonin 0.59 ng/mL (0.02-0.09)
[2021-11-16] MEDS: ACETAMINOPHEN TAB 325 MG TAB PO PRN (03:58)
[2021-11-16 06:11] LABS: Glucose,Whole Blood 129 mg/dL (75-99)
[2021-11-16] MEDS: INSULIN ASPART (NovoLOG) 100 UNIT/ML VIAL SQ SCH ×4 (06:11→21:26)
[2021-11-16] MEDS: PANTOPRAZOLE 40 MG TABLET PO SCH (06:12)
[2021-11-16] MEDS: METOPROLOL TARTRATE 50 MG TAB PO SCH ×2 (08:51→21:19)
[2021-11-16] MEDS: CHOLECALCIFEROL 25 MCG (1000 IU) TABLET PO SCH (08:51)
[2021-11-16] MEDS: ASCORBIC ACID 500 MG TAB PO SCH ×2 (08:51→21:18)
[2021-11-16] MEDS: GABAPENTIN 100 MG CAP PO SCH ×2 (08:51→21:19)
[2021-11-16] MEDS: ZINC SULFATE 220 MG CAP PO SCH (08:51)
[2021-11-16] MEDS: ATORVASTATIN 40 MG TAB PO SCH (08:52)
[2021-11-16] MEDS: HEPARIN SODIUM,PORCINE/PF 5,000 UNIT/0.5 ML SYRINGE SQ SCH ×2 (08:52→21:19)
[2021-11-16] MEDS: CLOTRIMAZOLE 1% CREAM 30 GM TUBE TOPICAL SCH ×2 (08:52→21:19)
[2021-11-16] MEDS: ASPIRIN 81 MG PO SCH (08:52)
[2021-11-16] MEDS: traMADol 50 MG TAB PO PRN (09:02)
[2021-11-16] MEDS: PIPERACILLIN-TAZOBACTAM 3.375 GM in SODIUM CHLORIDE 0.9% 100 ML IVPB SCH ×2 (09:25→17:07)
[2021-11-16 09:47] LABS: Basophils % (A) 0 %; Eosinophils # (A) 0.3 k/uL (0-0.7); Eosinophils % (A) 3 %; HCT 34.3 % (34.0-46.0); HGB 10.3 gm/dL (11.4-16.0); Hypochromasia Slight; Lymphocytes # (A) 0.8 k/uL (1.0-4.8); Lymphocytes % (A) 8 %; MCH 30.2 pg (25.0-35.0); MCHC 30.1 g/dL (31.0-37.0); MCV 100.3 fL (80.0-100.0); Mean Platelet Volume 8.2; Monocytes # (A) 0.4 k/uL (0-1.0); Monocytes % (A) 4 %; Neutrophils # (A) 8.1 k/uL (1.3-7.7); Neutrophils % (A) 83 %; Platelet Count 282 k/uL (150-450); RBC 3.42 m/uL (3.80-5.40); RDW 13.2 % (11.5-15.5); WBC 9.8 k/uL (3.8-10.6)
[2021-11-16 10:03] LABS: Calcium 7.8 mg/dL (8.4-10.2); Potassium 3.9 mmol/L (3.5-5.1)
[2021-11-16] MEDS: SODIUM CHLORIDE 0.9% 1,000 ML IV SCH ×3 (10:45→22:50)
[2021-11-16 11:36] LABS: Glucose,Whole Blood 130 mg/dL (75-99)
[2021-11-16] MEDS: IOPAMIDOL CONTRAST (ORAL USE) VIAL PO PRN ×2 (11:36→12:36)
--- NOTE | 2021-11-16 11:47 | P.PN ---
Subjective Progress Note Date: 11/16/21 This is a 66-year-old female with past medical history of recent incarcerated incisional hernia repair with mesh and lysis of adhesions on 07/08/2021, readmitted with recurrent abdominal pain .Returned to the ER on 11/10 with similar presentation as on prior visits, reporting " mid epigastric pain radiating across bilateral total quadrants, worse on the right side". KUB reportedly nonacute abdomen, no evidence of constipation no adverse change, clearing of dilated gas-filled small bowel in the mid abdomen compared to old exam, clearing of increased density over the abdomen suggestive of ascites evid ent on the old exam .CT of abdomen and pelvis with contrast reported postsurgical change along the anterior abdominal wall with prior mesh repair, subcutaneous air seen on 07/28/2021 resolved though a platelike fluid collection remains measuring 9.5 x 6.1 cm and 1.1 cm plaque along the superficial fascia, chronic seroma versus abscess are possibilities. previous partial right hemothorax colectomy but with new right mid abdominal mesenteric nodularity measuring up to 1.1 cm, recurrent disease with new metastatic nodes are not excluded at this time versus reactive , prominent fluid within the lower abdominal small bowel loops and some liquid stool in the transverse colon- correlate for enteritis,s/p rosibel fundoplication but with recurrent tiny hiatal hernia.Mild circumferentail wall thickening distal esophagus possibly esophigitis. Returned to the ER on 11/12 , admitted with ongoing abdominal pain accompanied by nausea with no emesis and fevers. Reports most recent bowel movement yesterday. Denies bleeding or dark stools. T-max 101.1, normal WBC. Creatinine 1.14 Patient complaining of right hip pain, right hip x-ray reviewed completed reporting no fracture or dislocation, no abnormality evident. 11/15/2021 reports abdominal pain continues, unchanged. States pain worse in the "bilateral upper quadrants wrapping around". On previous occasions patient described abdominal pain is a twisting sensation, which currently does not exist at this time. Reports pain is not worsened by moving or eating.Denies nausea, vomiting. Positive diarrhea, negative for C. difficile colitis. T-max 100.6,Continues on IV antibiotics of Zosyn. Coronal virus, influenza type a and type B not detected. Urine legionella AG negative. CMV/EBV pending. CRP increased from 16.2-29.5, sed rate elevated, 104. Oncology consult in place, recommendations pending. 11/16/2021 Sitting up in chair reporting ongoing abdominal pain, teary-eyed. Feels hungry but unable to eat. Blood sugars controlled. Positive bowel movement today ,more formed. Positive sweats and chills. Positive headache, r eports nasal brown mucousy drainage. Hemoglobin 10.3, platelets 282. Iron 10, TIBC 241,% saturation 3.99, transferrin 172, ferritin 252, Vit. B12> 2000. Renal function continues improving, creatinine down to 1.09. T-max 100.2, normal WBC. Maintained on Zosyn. Evaluated by oncology with recommendations noted and appreciated. Objective - Vital Signs Vital signs: Vital Signs Temp 98.8 F 11/16/21 08:33 Pulse 94 11/16/21 08:33 Resp 18 11/16/21 08:33 BP 155/85 11/16/21 08:33 Pulse Ox 94 L 11/16/21 08:33 FiO2 21 11/13/21 07:34 Intake & Output 11/15/21 11/16/21 11/16/21 18:59 06:59 18:59 Intake Total 240 2970 Balance 240 2970 Intake: Intake, IV Titration 2000 Amount Piperacillin-Tazobactam 3 1000 .375 gm In Sodium Chloride 0.9% 100 ml @ 25 mls/hr IVPB Q8HR [facility] Rx# :[id number] Sodium Chloride 0.9% 1, 1000 000 ml @ 100 mls/hr IV . Q10H [facility] Rx#:[id number] Oral 240 970 Other: Voiding Method Toilet Toilet Toilet Diaper Diaper Diaper # Voids 2 - Exam - Exam VITAL SIGNS: [As above] GENERAL: Alert and oriented 3, Sitting up in bed, teary-eyed Eyes: PERRL, EOMI, conjunctiva normal, mild inferior orbital rim pressure HENT: normocephalic, MMM. Neck: supple, no JVD Lungs: normal respiratory effort, bilateral bases diminished CV: Regular rate and rhythm, no murmur. Peripheral pulses 2+ Abdomen: soft, nondistended, no organomegaly.Diffuse abdominal tenderness,positive bowel sounds. Skin: warm and dry. Neuro: Cranial nerves 2 through 12 grossly intact, no focal deficits - Labs CBC & Chem 7: 11/16/21 09:13 11/16/21 09:13 Labs: Abnormal Lab Results - Last 24 Hours (Table) 11/15/21 11/15/21 11/15/21 Range/Units 10:48 10:48 10:48 RBC (3.80-5.40) m/uL Hgb (11.4-16.0) gm/dL MCV (80.0-100.0) fL MCHC (31.0-37.0) g/dL Neutrophils # (1.3-7.7) k/uL Lymphocytes # (1.0-4.8) k/uL ESR 104 H (0-20) mm/hr Chloride (98-107) mmol/L Creatinine (0.52-1.04) mg/dL Glucose (74-99) mg/dL POC Glucose (mg/dL) (75-99) mg/dL Calcium (8.4-10.2) mg/dL Iron (50-170) ug/dL % Saturation (12.00-45.00) Transferrin (204.0-354.0) mg/dL C-Reactive Protein (<1.0) mg/dL Vitamin B12 (200.0-944.0) pg/mL Procalcitonin 0.59 H (0.02-0.09) ng/mL EBV Capsid Ag IgG Intrp POSITIVE A (NEGATIVE) EBV Nuc Ag IgG Interp POSITIVE A (NEGATIVE) 11/15/21 11/15/21 11/15/21 Range/Units 10:48 11:29 14:05 RBC (3.80-5.40) m/uL Hgb (11.4-16.0) gm/dL MCV (80.0-100.0) fL MCHC (31.0-37.0) g/dL Neutrophils # (1.3-7.7) k/uL Lymphocytes # (1.0-4.8) k/uL ESR (0-20) mm/hr Chloride (98-107) mmol/L Creatinine (0.52-1.04) mg/dL Glucose (74-99) mg/dL POC Glucose (mg/dL) 106 H (75-99) mg/dL Calcium (8.4-10.2) mg/dL Iron 10 L (50-170) ug/dL % Saturation 3.99 L (12.00-45.00) Transferrin 172.0 L (204.0-354.0) mg/dL C-Reactive Protein 29.5 H (<1.0) mg/dL Vitamin B12 >2000.0 H (200.0-944.0) pg/mL Procalcitonin (0.02-0.09) ng/mL EBV Capsid Ag IgG Intrp (NEGATIVE) EBV Nuc Ag IgG Interp (NEGATIVE) 11/15/21 11/15/21 11/16/21 Range/Units 16:25 20:12 06:11 RBC (3.80-5.40) m/uL Hgb (11.4-16.0) gm/dL MCV (80.0-100.0) fL MCHC (31.0-37.0) g/dL Neutrophils # (1.3-7.7) k/uL Lymphocytes # (1.0-4.8) k/uL ESR (0-20) mm/hr Chloride (98-107) mmol/L Creatinine (0.52-1.04) mg/dL Glucose (74-99) mg/dL POC Glucose (mg/dL) 175 H 172 H 129 H (75-99) mg/dL Calcium (8.4-10.2) mg/dL Iron (50-170) ug/dL % Saturation (12.00-45.00) Transferrin (204.0-354.0) mg/dL C-Reactive Protein (<1.0) mg/dL Vitamin B12 (200.0-944.0) pg/mL Procalcitonin (0.02-0.09) ng/mL EBV Capsid Ag IgG Intrp (NEGATIVE) EBV Nuc Ag IgG Interp (NEGATIVE) 11/16/21 11/16/21 Range/Units 09:13 09:13 RBC 3.42 L (3.80-5.40) m/uL Hgb 10.3 L (11.4-16.0) gm/dL MCV 100.3 H (80.0-100.0) fL MCHC 30.1 L (31.0-37.0) g/dL Neutrophils # 8.1 H (1.3-7.7) k/uL Lymphocytes # 0.8 L (1.0-4.8) k/uL ESR (0-20) mm/hr Chloride 110 H (98-107) mmol/L Creatinine 1.09 H (0.52-1.04) mg/dL Glucose 119 H (74-99) mg/dL POC Glucose (mg/dL) (75-99) mg/dL Calcium 7.8 L (8.4-10.2) mg/dL Iron (50-170) ug/dL % Saturation (12.00-45.00) Transferrin (204.0-354.0) mg/dL C-Reactive Protein (<1.0) mg/dL Vitamin B12 (200.0-944.0) pg/mL Procalcitonin (0.02-0.09) ng/mL EBV Capsid Ag IgG Intrp (NEGATIVE) EBV Nuc Ag IgG Interp (NEGATIVE) Microbiology - Last 24 Hours (Table) 11/12/21 04:20 Blood Culture - Preliminary Blood No Growth after 96 hours 11/12/21 04:40 Blood Culture - Preliminary Blood No Growth after 96 hours Assessment and Plan Assessment: Recurrent Abdominal pain with nausea and fevers in a patient with recent incarcerated incisional hernia repair with mesh and lysis of adhesions, 07/08/2021, multiple readmissions.Possible postop seroma, possible abscess, new metastatic or reactive nodes, recurrent tiny hiatal hernia and possible mild enteritis reported per CT. workup in progress Mildly elevated LFTs, etiology unclear Elevated troponin, no ACS as per cardiology, suspect related to renal failure. Acute on chronic renal failure, stage III Gastroesophageal reflux disease Post op Anemia history of migraines CAD PVD Hypertension Diabetes Melllitus Recent Acute Covid infection Memory impairment, history of Obesity, BMI 37.8 Diarrhea and constipation, possible chronic IBS, advised previously to follow-up outpatient with Dr. Ashlie Reeves, GI. Plan: Continue on current medication regime ,monitoring and symptomatic treatment. Claritin added to med regimen. Increase activity as tolerated. Fevers persist, antibiotic regimen as per ID. No surgical intervention as per general surgery. Oncology recommendations noted including follow-up CT of abdomen and pelvis in 2-3 months. The impression and plan of care has been dictated as directed. : I performed a history and examination of this patient, discussed the same with the dictator. I agree with the dictator's note ,documented as a scribe. Any additional findings or plans will be noted.
--- NOTE | 2021-11-16 13:04 | P.PN ---
Subjective Progress Note Date: 11/16/21 Principal diagnosis: adenopathy and anemia autoimmune markers negative, no b12 deficiency. awaiting completed work-up Objective - Vital Signs Vital signs: Vital Signs Temp 98.3 F 11/16/21 12:00 Pulse 71 11/16/21 12:00 Resp 18 11/16/21 12:00 BP 138/89 11/16/21 12:00 Pulse Ox 94 L 11/16/21 12:00 FiO2 21 11/13/21 07:34 Intake & Output 11/15/21 11/16/21 11/16/21 18:59 06:59 18:59 Intake Total 240 2970 Balance 240 2970 Intake: Intake, IV Titration 2000 Amount Piperacillin-Tazobactam 3 1000 .375 gm In Sodium Chloride 0.9% 100 ml @ 25 mls/hr IVPB Q8HR [facility] Rx# :[id number] Sodium Chloride 0.9% 1, 1000 000 ml @ 100 mls/hr IV . Q10H [facility] Rx#:[id number] Oral 240 970 Other: Voiding Method Toilet Toilet Toilet Diaper Diaper Diaper # Voids 2 - Exam - Constitutional General appearance: average body habitus, cooperative, mild distress - EENT Eyes: anicteric sclerae, EOMI ENT: hearing grossly normal, normal oropharynx - Neck Neck: no lymphadenopathy - Respiratory Respiratory: bilateral: CTA - Cardiovascular Rhythm: regular Heart sounds: normal: S1, S2 Abnormal Heart Sounds: no systolic murmur, no diastolic murmur, no rub, no S3 Gallop, no S4 Gallop, no click, no other leg Peripheral Edema: bilateral: None - Gastrointestinal General gastrointestinal: no absent bowel sounds, no decreased bowel sounds, no distended, no hepatomegaly, no hyperactive bowel sounds, normal bowel sounds, no organomegaly, no rigid, no scaphoid, soft, no splenomegaly, tenderness, no umbilical hernia, no ventral hernia - Integumentary Integumentary: normal - Neurologic Neurologic: CNII-XII intact - Musculoskeletal Musculoskeletal: strength equal bilaterally - Psychiatric Psychiatric: A&O x's 3, appropriate affect, intact judgment & insight - Labs CBC & Chem 7: 11/16/21 09:13 11/16/21 09:13 Labs: Abnormal Lab Results - Last 24 Hours (Table) 05/11/15/21 11/15/21 Range/Units 10:48 10:48 14:05 RBC (3.80-5.40) m/uL Hgb (11.4-16.0) gm/dL MCV (80.0-100.0) fL MCHC (31.0-37.0) g/dL Neutrophils # (1.3-7.7) k/uL Lymphocytes # (1.0-4.8) k/uL Chloride (98-107) mmol/L Creatinine (0.52-1.04) mg/dL Glucose (74-99) mg/dL POC Glucose (mg/dL) (75-99) mg/dL Calcium (8.4-10.2) mg/dL Iron 10 L (50-170) ug/dL % Saturation 3.99 L (12.00-45.00) Transferrin 172.0 L (204.0-354.0) mg/dL Vitamin B12 >2000.0 H (200.0-944.0) pg/mL Procalcitonin 0.59 H (0.02-0.09) ng/mL EBV Capsid Ag IgG Intrp POSITIVE A (NEGATIVE) EBV Nuc Ag IgG Interp POSITIVE A (NEGATIVE) 11/15/21 11/15/21 11/16/21 Range/Units 16:25 20:12 06:11 RBC (3.80-5.40) m/uL Hgb (11.4-16.0) gm/dL MCV (80.0-100.0) fL MCHC (31.0-37.0) g/dL Neutrophils # (1.3-7.7) k/uL Lymphocytes # (1.0-4.8) k/uL Chloride (98-107) mmol/L Creatinine (0.52-1.04) mg/dL Glucose (74-99) mg/dL POC Glucose (mg/dL) 175 H 172 H 129 H (75-99) mg/dL Calcium (8.4-10.2) mg/dL Iron (50-170) ug/dL % Saturation (12.00-45.00) Transferrin (204.0-354.0) mg/dL Vitamin B12 (200.0-944.0) pg/mL Procalcitonin (0.02-0.09) ng/mL EBV Capsid Ag IgG Intrp (NEGATIVE) EBV Nuc Ag IgG Interp (NEGATIVE) 11/16/21 11/16/21 11/16/21 Range/Units 09:13 09:13 11:27 RBC 3.42 L (3.80-5.40) m/uL Hgb 10.3 L (11.4-16.0) gm/dL MCV 100.3 H (80.0-100.0) fL MCHC 30.1 L (31.0-37.0) g/dL Neutrophils # 8.1 H (1.3-7.7) k/uL Lymphocytes # 0.8 L (1.0-4.8) k/uL Chloride 110 H (98-107) mmol/L Creatinine 1.09 H (0.52-1.04) mg/dL Glucose 119 H (74-99) mg/dL POC Glucose (mg/dL) 130 H (75-99) mg/dL Calcium 7.8 L (8.4-10.2) mg/dL Iron (50-170) ug/dL % Saturation (12.00-45.00) Transferrin (204.0-354.0) mg/dL Vitamin B12 (200.0-944.0) pg/mL Procalcitonin (0.02-0.09) ng/mL EBV Capsid Ag IgG Intrp (NEGATIVE) EBV Nuc Ag IgG Interp (NEGATIVE) Microbiology - Last 24 Hours (Table) 11/12/21 04:20 Blood Culture - Preliminary Blood No Growth after 96 hours 11/12/21 04:40 Blood Culture - Preliminary Blood No Growth after 96 hours Assessment and Plan Plan: CT scan - abdomen: report reviewed CT scan - pelvis: report reviewed Assessment and Plan (1) Lymphadenopathy Current Visit: Yes Status: Acute Code(s): R59.1 - GENERALIZED ENLARGED LYMPH NODES SNOMED Code(s): 67298691 (2) Abdominal pain Current Visit: Yes Status: Acute Code(s): R10.9 - UNSPECIFIED ABDOMINAL PAIN SNOMED Code(s): 11083560 (3) Fever Current Visit: Yes Status: Acute Code(s): R50.9 - FEVER, UNSPECIFIED S NOMED Code(s): 580802473 (4) Anemia Current Visit: Yes Status: Acute Code(s): D64.9 - ANEMIA, UNSPECIFIED SNOMED Code(s): 128067823 Plan: Possible reactive lymph nodes. The nodes are deep in the abdomen and not able to be biopsied so, will laboratory workup will be ordered 1st. We'll follow-up on lab results. Autoimmune markers negative. Ferritin increased iron sat down postopeerative Recommend follow-up with a CT of the abdomen and pelvis in 2-3 months. Increased LFTs - Monitor, recheck in am
--- NOTE | 2021-11-16 13:43 | P.PN ---
Subjective Progress Note Date: 11/16/21 CHIEF COMPLAINT: Abdominal pain HISTORY OF PRESENT ILLNESS: The patient is a 66 year old female presents with generalized abdominal pain ongoing for over 1 week. Patient continues to complain of abdominal pain. She reports that she is not feeling well today. She reports an increase in abdominal pain. She reports pain is mostly on the right side. Did have a small bowel movement. She has had some nausea. She did have a temp last night of 100.2. Infectious disease has ordered a computed tomography scan abdomen and pelvis with oral contrast. WBC 9.8 hemoglobin 10.3 platelets 282 Patient seen and examined with Dr. moreno PHYSICAL EXAM: VITAL SIGNS: Reviewed. GENERAL: Well-developed in no acute distress. HEENT: No sclera icterus. Extraocular movements grossly intact. Moist buccal mucosa. Head is atraumatic, normocephalic. ABDOMEN: Soft. Nondistended. Tender with palpation of the right side of abdomen NEUROLOGIC: Alert and oriented. Cranial nerves II through XII grossly intact. ASSESSMENT: 1. Abdominal pain possibly secondary to enteritis 2. Post-surgical seroma of abdominal wall noted on CT 11/10/21. Repeat CT for this admission was negative for fluid collection. 3. Hypokalemia resolved 4. Chronic renal insufficiency 5. Elevated troponin 6. History of incisional hernia repair PLAN: -We'll follow up on computed tomography scan abdomen and pelvis ordered by TANISHA pollock -Continue supportive care -Continue low-fat diet -Antibiotics per ID service Physician Harmonic Analyst note has been reviewed by physician. Signing provider agrees with the documented findings, assessment, and plan of care. Objective - Vital Signs Vital signs: Vital Signs Temp 98.3 F 11/16/21 12:00 Pulse 71 11/16/21 12:00 Resp 18 11/16/21 12:00 BP 138/89 11/16/21 12:00 Pulse Ox 94 L 11/16/21 12:00 FiO2 21 11/13/21 07:34 Intake & Output 11/15/21 11/16/21 11/16/21 18:59 06:59 18:59 Intake Total 240 2970 Balance 240 2970 Intake: Intake, IV Titration 2000 Amount Piperacillin-Tazobactam 3 1000 .375 gm In Sodium Chloride 0.9% 100 ml @ 25 mls/hr IVPB Q8HR [facility] Rx# :[id number] Sodium Chloride 0.9% 1, 1000 000 ml @ 100 mls/hr IV . Q10H [facility] Rx#:[id number] Oral 240 970 Other: Voiding Method Toilet Toilet Toilet Diaper Diaper Diaper # Voids 2 # Bowel Movements 1 - Labs CBC & Chem 7: 11/16/21 09:13 11/16/21 09:13 Labs: Abnormal Lab Results - Last 24 Hours (Table) 11/15/21 11/15/21 11/15/21 Range/Units 10:48 10:48 14:05 RBC (3.80-5.40) m/uL Hgb (11.4-16.0) gm/dL MCV (80.0-100.0) fL MCHC (31.0-37.0) g/dL Neutrophils # (1.3-7.7) k/uL Lymphocytes # (1.0-4.8) k/uL Chloride (98-107) mmol/L Creatinine (0.52-1.04) mg/dL Glucose (74-99) mg/dL POC Glucose (mg/dL) (75-99) mg/dL Calcium (8.4-10.2) mg/dL Iron 10 L (50-170) ug/dL % Saturation 3.99 L (12.00-45.00) Transferrin 172.0 L (204.0-354.0) mg/dL Vitamin B12 >2000.0 H (200.0-944.0) pg/mL Procalcitonin 0.59 H (0.02-0.09) ng/mL EBV Capsid Ag IgG Intrp POSITIVE A (NEGATIVE) EBV Nuc Ag IgG Interp POSITIVE A (NEGATIVE) 11/15/21 11/15/21 11/16/21 Range/Units 16:25 20:12 06:11 RBC (3.80-5.40) m/uL Hgb (11.4-16.0) gm/dL MCV (80.0-100.0) fL MCHC (31.0-37.0) g/dL Neutrophils # (1.3-7.7) k/uL Lymphocytes # (1.0-4.8) k/uL Chloride (98-107) mmol/L Creatinine (0.52-1.04) mg/dL Glucose (74-99) mg/dL POC Glucose (mg/dL) 175 H 172 H 129 H (75-99) mg/dL Calcium (8.4-10.2) mg/dL Iron (50-170) ug/dL % Saturation (12.00-45.00) Transferrin (204.0-354.0) mg/dL Vitamin B12 (200.0-944.0) pg/mL Procalcitonin (0.02-0.09) ng/mL EBV Capsid Ag IgG Intrp (NEGATIVE) EBV Nuc Ag IgG Interp (NEGATIVE) 11/16/21 11/16/21 11/16/21 Range/Units 09:13 09:13 11:27 RBC 3.42 L (3.80-5.40) m/uL Hgb 10.3 L (11.4-16.0) gm/dL MCV 100.3 H (80.0-100.0) fL MCHC 30.1 L (31.0-37.0) g/dL Neutrophils # 8.1 H (1.3-7.7) k/uL Lymphocytes # 0.8 L (1.0-4.8) k/uL Chloride 110 H (98-107) mmol/L Creatinine 1.09 H (0.52-1.04) mg/dL Glucose 119 H (74-99) mg/dL POC Glucose (mg/dL) 130 H (75-99) mg/dL Calcium 7.8 L (8.4-10.2) mg/dL Iron (50-170) ug/dL % Saturation (12.00-45.00) Transferrin (204.0-354.0) mg/dL Vitamin B12 (200.0-944.0) pg/mL Procalcitonin (0.02-0.09) ng/mL EBV Capsid Ag IgG Intrp (NEGATIVE) EBV Nuc Ag IgG Interp (NEGATIVE) Microbiology - Last 24 Hours (Table) 11/12/21 04:20 Blood Culture - Preliminary Blood No Growth after 96 hours 11/12/21 04:40 Blood Culture - Preliminary Blood No Growth after 96 hours
[2021-11-16] MEDS: HYDROmorphone 1 MG/ML 1 ML SYRINGE IVP PRN ×2 (15:15→21:20)
--- NOTE | 2021-11-16 15:29 | CT ---
EXAMINATION TYPE: CT abdomen pelvis wo con DATE OF EXAM: 11/16/2021 COMPARISON: CT dated 11/13/2021 HISTORY: Abdominal pain CT DLP: 793 mGycm Automated exposure control for dose reduction was used. TECHNIQUE: Helical acquisition of images was performed from the lung bases through the pelvis. FINDINGS: Suboptimal CT scan due to the lack of IV contrast administration and motion artifacts. LUNG BASES: Left pleural effusion. Cardiomegaly. Left basal subsegmental pulmonary atelectasis, assoc iated infection cannot be excluded. LIVER/GB: Previous cholecystectomy. No definite hepatic focal lesion. PANCREAS: Markedly atrophic SPLEEN: No significant abnormality is seen. ADRENALS: No significant abnormality is seen. KIDNEYS: Suspected bilateral renal cysts, suboptimally assessed by this CT scan. No hydroureter or hy dronephrosis. FREE AIR: No free air is visualized RETROPERITONEAL ADENOPATHY: None visualized REPRODUCTIVE ORGANS: No gross uterine or right adnexal mass yet suboptimally assessed. Left ovarian c yst measuring 2.4 cm, appreciated previously. URINARY BLADDER: Incompletely distended. PELVIC ADENOPATHY: None visualized. OSSEOUS STRUCTURES: Osteopenia. No aggressive bone lesion. BOWEL: Surgical clips and focal soft tissue thickening of the gastroesophageal junction, underlying lesion can't be excluded, please correlate clinically and with previous operative report. Further gas troscopy can be considered. Unremarkable duodenum. No evidence of bowel obstruction. Fluid-filled col on, diarrhea cannot be excluded. Uncomplicated colonic diverticulosis. Previous right hemicolectomy. Unremarkable ileocolic anastomosis. OTHER: Arterial atherosclerotic calcification. No sizable ascites. IMPRESSION: Postoperative changes and focal soft tissue thickening of the gastroesophageal junction as described above, please correlate clinically and with previous operative report. Fluid-filled colon, diarrhea cannot be excluded. Other findings as described above.
[2021-11-16 17:04] LABS: Glucose,Whole Blood 123 mg/dL (75-99)
[2021-11-16 20:57] LABS: Glucose,Whole Blood 111 mg/dL (75-99)
[2021-11-16 20:58] LABS: Glucose,Whole Blood 111 mg/dL (75-99)
[2021-11-16] MEDS: traZODone HCL 100 MG TAB PO SCH (21:19)
[2021-11-16] MEDS: TOPIRAMATE 25 MG TAB PO SCH (21:19)
[2021-11-16] MEDS: LORATADINE 10 MG TAB PO SCH (21:21)
[2021-11-17] MEDS: PIPERACILLIN-TAZOBACTAM 3.375 GM in SODIUM CHLORIDE 0.9% 100 ML IVPB SCH ×4 (00:05→23:16)
[2021-11-17] MEDS: HYDROmorphone 1 MG/ML 1 ML SYRINGE IVP PRN ×3 (00:35→06:53)
[2021-11-17 02:17] LABS: Glucose,Whole Blood 90 mg/dL (75-99)
[2021-11-17 06:22] LABS: Glucose,Whole Blood 93 mg/dL (75-99)
[2021-11-17] MEDS: INSULIN ASPART (NovoLOG) 100 UNIT/ML VIAL SQ SCH ×4 (06:38→21:00)
[2021-11-17] MEDS: PANTOPRAZOLE 40 MG TABLET PO SCH (06:53)
--- NOTE | 2021-11-17 07:43 | P.PN ---
Subjective Progress Note Date: 11/15/21 Principal diagnosis: Fever Patient is a 66-year-old female presented to the hospital with abdominal pain in this patient did have a fever on admission to the hospital CT abdominal pelvis done without any contrast did not show any acute abnormality. On today's evaluation that is 11/15/2021, the patient fever pattern has improved still running a low-grade fever of 100.4F, patient complaining of some right upper quadrant abdominal pain nausea but no vomiting no chest pain or shortness with minimal cough and no diarrhea Objective - Vital Signs Vital signs: Vital Signs Temp 100.4 F H 11/15/21 08:17 Pulse 83 11/15/21 08:17 Resp 18 11/15/21 08:17 BP 122/71 11/15/21 08:17 Pulse Ox 95 11/15/21 08:17 FiO2 21 11/13/21 07:34 Intake & Output 11/14/21 11/15/21 11/15/21 18:59 06:59 18:59 Intake Total 240 Balance 240 Intake: Oral 240 Other: Voiding Method Toilet Toilet Diaper Diaper # Voids 1 1 # Bowel Movements 1 1 - Exam GENERAL DESCRIPTION: An elderly female lying in bed in no distress RESPIRATORY SYSTEM: Unlabored breathing , decreased breath sounds at bases HEART: S1 S2 regular rate and rhythm , ABDOMEN: Soft , no tenderness EXTREMITIES: No edema feet - Labs CBC & Chem 7: 11/16/21 09:13 11/16/21 09:13 Labs: Abnormal Lab Results - Last 24 Hours (Table) 11/14/21 11/15/21 11/15/21 Range/Units 11:34 01:28 04:31 POC Glucose (mg/dL) 159 H 116 H (75-99) mg/dL Urine Protein Trace H (Negative) 11/15/21 Range/Units 06:15 POC Glucose (mg/dL) 107 H (75-99) mg/dL Urine Protein (Negative) Microbiology - Last 24 Hours (Table) 11/12/21 04:40 Blood Culture - Preliminary Blood No Growth after 72 hours 11/12/21 04:20 Blood Culture - Preliminary Blood No Growth after 72 hours Assessment and Plan (1) Fever Current Visit: Yes Status: Acute Code(s): R50.9 - FEVER, UNSPECIFIED SNOMED Code(s): 591026911 Plan: 1patient presented hospital with with abdominal pain in this patient has been running a fever for the last 3 days patient did have CT abdominal pelvis which was done without any contrast, was negative urine was negative patient did not have any elevated white count concern for possible viral syndrome as elevated levels are elevated. 2 influenza and COVID nasopharyngeal swab came back negative. 3patient to continue with Zosyn, may need to repeat CT of abdominal pelvis with contrast in the fever persist Time with Patient: Less than 30
--- NOTE | 2021-11-17 07:45 | P.PN ---
Subjective Progress Note Date: 11/16/21 Principal diagnosis: Fever Patient is a 66-year-old female presented to the hospital with abdominal pain in this patient did have a fever on admission to the hospital CT abdominal pelvis done without any contrast did not show any acute abnormality. On today's evaluation that is 11/16/2021, the patient is afebrile today, patient is still complaining of some right upper quadrant abdominal pain nausea but no vomiting, the patient denies chest pain or shortness of breath the patient did have mild dry cough and no diarrhea Objective - Vital Signs Vital signs: Vital Signs Temp 98.8 F 11/16/21 08:33 Pulse 94 11/16/21 08:33 Resp 18 11/16/21 08:33 BP 155/85 11/16/21 08:33 Pulse Ox 94 L 11/16/21 08:33 FiO2 21 11/13/21 07:34 Intake & Output 11/15/21 11/16/21 11/16/21 18:59 06:59 18:59 Intake Total 240 2970 Balance 240 2970 Intake: Intake, IV Titration 2000 Amount Piperacillin-Tazobactam 3 1000 .375 gm In Sodium Chloride 0.9% 100 ml @ 25 mls/hr IVPB Q8HR MARK Rx# :[id number] Sodium Chloride 0.9% 1, 1000 000 ml @ 100 mls/hr IV . Q10H MARK Rx#:[id number] Oral 240 970 Other: Voiding Method Toilet Toilet Toilet Diaper Diaper Diaper # Voids 2 - Exam GENERAL DESCRIPTION: An elderly female lying in bed in no distress RESPIRATORY SYSTEM: Unlabored breathing , decreased breath sounds at bases HEART: S1 S2 regular rate and rhythm , ABDOMEN: Soft , no tenderness EXTREMITIES: No edema feet - Labs CBC & Chem 7: 11/16/21 09:13 11/16/21 09:13 Labs: Abnormal Lab Results - Last 24 Hours (Table) 11/15/21 11/15/21 11/15/21 Range/Units 10:48 10:48 10:48 RBC (3.80-5.40) m/uL Hgb (11.4-16.0) gm/dL MCV (80.0-100.0) fL MCHC (31.0-37.0) g/dL Neutrophils # (1.3-7.7) k/uL Lymphocytes # (1.0-4.8) k/uL ESR 104 H (0-20) mm/hr Chloride (98-107) mmol/L Creatinine (0.52-1.04) mg/dL Glucose (74-99) mg/dL POC Glucose (mg/dL) (75-99) mg/dL Calcium (8.4-10.2) mg/dL Iron (50-170) ug/dL % Saturation (12.00-45.00) Transferrin (204.0-354.0) mg/dL C-Reactive Protein (<1.0) mg/dL Vitamin B12 (200.0-944.0) pg/mL Procalcitonin 0.59 H (0.02-0.09) ng/mL EBV Capsid Ag IgG Intrp POSITIVE A (NEGATIVE) EBV Nuc Ag IgG Interp POSITIVE A (NEGATIVE) 11/15/21 11/15/21 11/15/21 Range/Units 10:48 11:29 14:05 RBC (3.80-5.40) m/uL Hgb (11.4-16.0) gm/dL MCV (80.0-100.0) fL MCHC (31.0-37.0) g/dL Neutrophils # (1.3-7.7) k/uL Lymphocytes # (1.0-4.8) k/uL ESR (0-20) mm/hr Chloride (98-107) mmol/L Creatinine (0.52-1.04) mg/dL Glucose (74-99) mg/dL POC Glucose (mg/dL) 106 H (75-99) mg/dL Calcium (8.4-10.2) mg/dL Iron 10 L (50-170) ug/dL % Saturation 3.99 L (12.00-45.00) Transferrin 172.0 L (204.0-354.0) mg/dL C-Reactive Protein 29.5 H (<1.0) mg/dL Vitamin B12 >2000.0 H (200.0-944.0) pg/mL Procalcitonin (0.02-0.09) ng/mL EBV Capsid Ag IgG Intrp (NEGATIVE) EBV Nuc Ag IgG Interp (NEGATIVE) 11/15/21 11/15/21 11/16/21 Range/Units 16:25 20:12 06:11 RBC (3.80-5.40) m/uL Hgb (11.4-16.0) gm/dL MCV (80.0-100.0) fL MCHC (31.0-37.0) g/dL Neutrophils # (1.3-7.7) k/uL Lymphocytes # (1.0-4.8) k/uL ESR (0-20) mm/hr Chloride (98-107) mmol/L Creatinine (0.52-1.04) mg/dL Glucose (74-99) mg/dL POC Glucose (mg/dL) 175 H 172 H 129 H (75-99) mg/dL Calcium (8.4-10.2) mg/dL Iron (50-170) ug/dL % Saturation (12.00-45.00) Transferrin (204.0-354.0) mg/dL C-Reactive Protein (<1.0) mg/dL Vitamin B12 (200.0-944.0) pg/mL Procalcitonin (0.02-0.09) ng/mL EBV Capsid Ag IgG Intrp (NEGATIVE) EBV Nuc Ag IgG Interp (NEGATIVE) 11/16/21 11/16/21 Range/Units 09:13 09:13 RBC 3.42 L (3.80-5.40) m/uL Hgb 10.3 L (11.4-16.0) gm/dL MCV 100.3 H (80.0-100.0) fL MCHC 30.1 L (31.0-37.0) g/dL Neutrophils # 8.1 H (1.3-7.7) k/uL Lymphocytes # 0.8 L (1.0-4.8) k/uL ESR (0-20) mm/hr Chloride 110 H (98-107) mmol/L Creatinine 1.09 H (0.52-1.04) mg/dL Glucose 119 H (74-99) mg/dL POC Glucose (mg/dL) (75-99) mg/dL Calcium 7.8 L (8.4-10.2) mg/dL Iron (50-170) ug/dL % Saturation (12.00-45.00) Transferrin (204.0-354.0) mg/dL C-Reactive Protein (<1.0) mg/dL Vitamin B12 (200.0-944.0) pg/mL Procalcitonin (0.02-0.09) ng/mL EBV Capsid Ag IgG Intrp (NEGATIVE) EBV Nuc Ag IgG Interp (NEGATIVE) Microbiology - Last 24 Hours (Table) 11/12/21 04:20 Blood Culture - Preliminary Blood No Growth after 96 hours 11/12/21 04:40 Blood Culture - Preliminary Blood No Growth after 96 hours Assessment and Plan (1) Fever Current Visit: Yes Status: Acute Code(s): R50.9 - FEVER, UNSPECIFIED SNOMED Code(s): 895633817 Plan: 1patient presented hospital with with abdominal pain in this patient has been running a fever for the last 3 days patient did have CT abdominal pelvis which was done without any contrast, was negative urine was negative patient did not have any elevated white count concern for possible viral syndrome as elevated levels are elevated. 2 influenza and COVID nasopharyngeal swab came back negative. CMV serology was negative EBV IgM was negative IgG was positive 3patient fever has resolved however still complaining of pain to the right upper quadrant area we will repeat CT with the oral contrast only and continue with the Zosyn Time with Patient: Less than 30
[2021-11-17] MEDS: GABAPENTIN 100 MG CAP PO SCH ×2 (08:20→21:00)
[2021-11-17] MEDS: CHOLECALCIFEROL 25 MCG (1000 IU) TABLET PO SCH (08:21)
[2021-11-17] MEDS: ATORVASTATIN 40 MG TAB PO SCH (08:22)
[2021-11-17] MEDS: METOPROLOL TARTRATE 50 MG TAB PO SCH ×2 (08:22→21:00)
[2021-11-17] MEDS: ZINC SULFATE 220 MG CAP PO SCH (08:22)
[2021-11-17] MEDS: HEPARIN SODIUM,PORCINE/PF 5,000 UNIT/0.5 ML SYRINGE SQ SCH ×2 (08:22→21:00)
[2021-11-17] MEDS: CLOTRIMAZOLE 1% CREAM 30 GM TUBE TOPICAL SCH ×2 (08:22→21:01)
[2021-11-17] MEDS: ASPIRIN 81 MG PO SCH (08:22)
[2021-11-17] MEDS: ASCORBIC ACID 500 MG TAB PO SCH ×2 (08:22→21:00)
[2021-11-17 08:52] LABS: Methylmalonic Acid <0.10 umol/L (<0.40)
[2021-11-17 14:44] LABS: Albumin 2.6 g/dL (3.5-5.0); Calcium 7.8 mg/dL (8.4-10.2); Total Bilirubin 0.7 mg/dL (0.2-1.3); Total Protein 5.1 g/dL (6.3-8.2)
[2021-11-17 14:45] LABS: Glucose,Whole Blood 130 mg/dL (75-99)
--- NOTE | 2021-11-17 14:58 | P.PN ---
Subjective Progress Note Date: 11/17/21 CHIEF COMPLAINT: Abdominal pain HISTORY OF PRESENT ILLNESS: Patient reports some improvement in her abdominal pain. Still reporting a decreased appetite. She continues to have diarrhea. Patient had computed tomography scan of abdomen and pelvis. Unable to pull up the complete report due to downtime in [facility]. However it did reveal soft tissue thickening at the GE junction and fluid filled colon with diarrhea. Afebrile. Patient seen and examined with Dr. moreno PHYSICAL EXAM: VITAL SIGNS: Reviewed. GENERAL: Well-developed in no acute distress. HEENT: No sclera icterus. Extraocular movements grossly intact. Moist buccal mucosa. Head is atraumatic, normocephalic. ABDOMEN: Soft. Nondistended. Tender with palpation of the right side of abdomen NEUROLOGIC: Alert and oriented. Cranial nerves II through XII grossly intact. ASSESSMENT: 1. Abdominal pain possibly secondary to enteritis 2. Post-surgical seroma of abdominal wall noted on CT 11/10/21. Repeat CT for this admission was negative for fluid collection. 3. Hypokalemia resolved 4. Chronic renal insufficiency 5. Elevated troponin 6. History of incisional hernia repair 7. Soft tissue thickening at the GE junction on CAT scan likely due to patient's prior history of Josephine fundoplication PLAN: -Continue supportive care -Continue low-fat diet -Antibiotics per ID service -No surgical intervention planned Physician Material Handler note has been reviewed by physician. Signing provider agrees with the documented findings, assessment, and plan of care. Objective - Vital Signs Vital signs: Vital Signs Temp 98.2 F 11/17/21 12:00 Pulse 67 11/17/21 12:00 Resp 16 11/17/21 12:00 BP 139/80 11/17/21 12:00 Pulse Ox 93 L 11/17/21 12:00 FiO2 21 11/13/21 07:34 Intake & Output 11/16/21 11/17/21 11/17/21 18:59 06:59 18:59 Intake Total 118 1580 Balance 118 1580 Intake: Intake, IV Titration 1100 Amount Piperacillin-Tazobactam 3 100 .375 gm In Sodium Chloride 0.9% 100 ml @ 25 mls/hr IVPB Q8HR MARK Rx# :[id number] Sodium Chloride 0.9% 1, 1000 000 ml @ 100 mls/hr IV . Q10H MARK Rx#:[id number] Oral 118 480 Other: Voiding Method Toilet Toilet Diaper Diaper # Voids 3 # Bowel Movements 1 - Labs CBC & Chem 7: 11/16/21 09:13 11/16/21 09:13 Labs: Abnormal Lab Results - Last 24 Hours (Table) 11/16/21 11/16/21 11/16/21 Range/Units 16:59 20:55 20:55 POC Glucose (mg/dL) 123 H 111 H 111 H (75-99) mg/dL Microbiology - Last 24 Hours (Table) 11/12/21 04:40 Blood Culture - Preliminary Blood No Growth after 120 hours 11/12/21 04:20 Blood Culture - Preliminary Blood No Growth after 120 hours
[2021-11-17] MEDS ORDERED: METOPROLOL SUCCINATE (ER) 25 MG TAB.ER.24H PO SCH (15:15)
[2021-11-17 16:20] LABS: Glucose,Whole Blood 98 mg/dL (75-99)
[2021-11-17 16:41] LABS: Basophils % (A) 0 %; Eosinophils # (A) 0.2 k/uL (0-0.7); Eosinophils % (A) 4 %; HCT 32.7 % (34.0-46.0); Hypochromasia Marked; Lymphocytes # (A) 0.9 k/uL (1.0-4.8); Lymphocytes % (A) 14 %; MCH 31.4 pg (25.0-35.0); MCHC 30.7 g/dL (31.0-37.0); MCV 102.3 fL (80.0-100.0); Macrocytosis Slight; Mean Platelet Volume 9.6; Monocytes # (A) 0.3 k/uL (0-1.0); Monocytes % (A) 5 %; Neutrophils # (A) 4.8 k/uL (1.3-7.7); Neutrophils % (A) 75 %; Platelet Count 308 k/uL (150-450); RBC 3.19 m/uL (3.80-5.40); RDW 13.4 % (11.5-15.5); WBC 6.3 k/uL (3.8-10.6)
[2021-11-17] MEDS: SUCRALFATE 1 GM TAB PO SCH ×3 (16:54→20:59)
[2021-11-17] MEDS: SODIUM CHLORIDE 0.9% 1,000 ML IV SCH ×2 (18:39→22:35)
[2021-11-17 20:22] LABS: Glucose,Whole Blood 133 mg/dL (75-99)
[2021-11-17] MEDS ORDERED: PANTOPRAZOLE 40 MG TABLET PO SCH (21:00)
[2021-11-17] MEDS: TOPIRAMATE 25 MG TAB PO SCH (21:00)
[2021-11-17] MEDS: LORATADINE 10 MG TAB PO SCH (21:00)
[2021-11-17] MEDS: traZODone HCL 100 MG TAB PO SCH (21:00)
[2021-11-17] MEDS: ONDANSETRON 4 MG/2 ML VIAL IVP PRN (21:09)
[2021-11-18 01:58] LABS: Glucose,Whole Blood 133 mg/dL (75-99)
--- NOTE | 2021-11-18 02:21 | P.PN ---
Subjective Progress Note Date: 11/17/21 This is a 66-year-old female with past medical history of recent incarcerated incisional hernia repair with mesh and lysis of adhesions on 07/08/2021, readmitted with recurrent abdominal pain .Returned to the ER on 11/10 with similar presentation as on prior visits, reporting " mid epigastric pain radiating across bilateral total quadrants, worse on the right side". KUB reportedly nonacute abdomen, no evidence of constipation no adverse change, clearing of dilated gas-filled small bowel in the mid abdomen compared to old exam, clearing of increased density over the abdomen suggestive of ascites hiral dent on the old exam .CT of abdomen and pelvis with contrast reported postsurgical change along the anterior abdominal wall with prior mesh repair, subcutaneous air seen on 07/28/2021 resolved though a platelike fluid collection remains measuring 9.5 x 6.1 cm and 1.1 cm plaque along the superficial fascia, chronic seroma versus abscess are possibilities. previous partial right hemothorax colectomy but with new right mid abdominal mesenteric nodularity measuring up to 1.1 cm, recurrent disease with new metastatic nodes are not excluded at this time versus reactive , prominent fluid within the lower abdominal small bowel loops and some liquid stool in the transverse colon- correlate for enteritis,s/p rosibel fundoplication but with recurrent tiny hiatal hernia.Mild circumferentail wall thickening distal esophagus possibly esophigitis. Returned to the ER on 11/12 , admitted with ongoing abdominal pain accompanied by nausea with no emesis and fevers. Reports most recent bowel movement yesterday. Denies bleeding or dark stools. T-max 101.1, normal WBC. Creatinine 1.14 Patient complaining of right hip pain, right hip x-ray reviewed completed reporting no fracture or dislocation, no abnormality evident. 11/15/2021 reports abdominal pain continues, unchanged. States pain worse in the "bilateral upper quadrants wrapping around". On previous occasions patient described abdominal pain is a twisting sensation, which currently does not exist at this time. Reports pain is not worsened by moving or eating.Denies nausea, vomiting. Positive diarrhea, negative for C. difficile colitis. T-max 100.6,Continues on IV antibiotics of Zosyn. Coronal virus, influenza type a and type B not detected. Urine legionella AG negative. CMV/EBV pending. CRP increased from 16.2-29.5, sed rate elevated, 104. Oncology consult in place, recommendations pending. 11/16/2021 Sitting up in chair reporting ongoing abdominal pain, teary-eyed. Feels hungry but unable to eat. Blood sugars controlled. Positive bowel movement today ,more formed. Positive sweats and chills. Positive headache, reports nasal brown mucousy drainage. Hemoglobin 10.3, platelets 282. Iron 10, TIBC 241,% saturation 3.99, transferrin 172, ferritin 252, Vit. B12> 2000. Renal function continues improving, creatinine down to 1.09. T-max 100.2, normal WBC. Maintained on Zosyn. Evaluated by oncology with recommendations noted and appreciated. 11/17/2021 This is a pleasant 66-year-old female was recently admitted with abdominal pain and possible hernia repair with general surgery following. Patient continues with diarrhea and C. diff testing was negative and continues with abdominal pain and normally takes Carafate 4 times daily and will resume this med and encourage increased activity with possible discharge tomorrow. Patient denies chest pain or shortness of breath. Patient is afebrile. Patient follows with Dr. Lewis in the outpatient setting. Review of systems: Constitutional: No reports of fatigue, fever, or chills Cardiovascular: No reports of chest pain or palpitations Respiratory: No reports of shortness of breath or cough GI: reports of nausea, and reports continued abdominal pain : No reports of dysuria or retention Neurovascular: reports of generalized weakness All medications have been reviewed Active Medications Acetaminophen (Acetaminophen Tab 325 Mg Tab) 650 mg PO Q6HR PRN PRN Reason: Mild Pain or Fever > 100.5 Last Admin: 11/16/21 03:58 Dose: 650 mg Ascorbic Acid (Ascorbic Acid 500 Mg Tab) 500 mg PO BID [facility] Last Admin: 11/17/21 21:00 Dose: 500 mg Aspirin (Aspirin 81 Mg) 81 mg PO DAILY [facility] Last Admin: 11/17/21 08:22 Dose: 81 mg Atorvastatin Calcium (Atorvastatin 40 Mg Tab) 40 mg PO DAILY [facility] Last Admin: 11/17/21 08:22 Dose: 40 mg Cholecalciferol (Cholecalciferol 25 Mcg (1000 Iu) Tablet) 100 mcg PO DAILY [facility] Last Admin: 11/17/21 08:21 Dose: 100 mcg Clotrimazole (Clotrimazole 1% Cream 30 Gm Tube) 1 applic TOPICAL BID [facility]; Protocol Last Admin: 11/17/21 21:01 Dose: 1 applic Gabapentin (Gabapentin 100 Mg Cap) 100 mg PO BID [facility] Last Admin: 11/17/21 21:00 Dose: 100 mg Heparin Sodium (Porcine) (Heparin Sodium,Porcine/Pf 5,000 Unit/0.5 Ml Syringe) 5,000 unit SQ Q12HR [facility] Last Admin: 11/17/21 21:00 Dose: 5,000 unit Hydromorphone HCl (Hydromorphone 1 Mg/Ml 1 Ml Syringe) 1 mg IVP Q3HR PRN PRN Reason: Severe Pain Last Admin: 11/17/21 06:53 Dose: 1 mg Sodium Chloride (Saline 0.9%) 1,000 mls @ 100 mls/hr IV .Q10H [facility] Last Admin: 11/17/21 22:35 Dose: 100 mls/hr Piperacillin Sod/Tazobactam (Sod 3.375 gm/ Sodium Chloride) 100 mls @ 25 mls/hr IVPB Q8HR [facility]; Protocol Last Admin: 11/17/21 23:16 Dose: 25 mls/hr Insulin Aspart (Insulin Aspart (Novolog) 100 Unit/Ml Vial) 0 unit SQ ACHS [facility]; Protocol Last Admin: 11/17/21 21:00 Dose: 1 unit Loratadine (Loratadine 10 Mg Tab) 5 mg PO HS [facility] Last Admin: 11/17/21 21:00 Dose: 5 mg Metoprolol Tartrate (Metoprolol Tartrate 50 Mg Tab) 50 mg PO BID [facility] Last Admin: 11/17/21 21:00 Dose: 50 mg Miscellaneous Information (Potassium Replacement Protocol 1 Each Misc) 1 each MISCELLANE DAILY PRN; Protocol PRN Reason: Per Protocol Naloxone HCl (Naloxone 0.4 Mg/Ml 1 Ml Vial) 0.2 mg IV Q2M PRN PRN Reason: Opioid Reversal Ondansetron HCl (Ondansetron 4 Mg/2 Ml Vial) 4 mg IVP Q6H PRN PRN Reason: Nausea And Vomiting Last Admin: 11/17/21 21:09 Dose: 4 mg Pantoprazole Sodium (Pantoprazole 40 Mg Tablet) 40 mg PO AC-BRKFST [facility] Last Admin: 11/17/21 06:53 Dose: 40 mg Sucralfate (Sucralfate 1 Gm Tab) 1 gm PO QID [facility] Last Admin: 11/17/21 20:59 Dose: 1 gm Topiramate (Topiramate 25 Mg Tab) 50 mg PO [facility] Last Admin: 11/17/21 21:00 Dose: 50 mg Tramadol HCl (Tramadol 50 Mg Tab) 50 mg PO QID PRN PRN Reason: Pain/Discomfort Last Admin: 11/16/21 09:02 Dose: 50 mg Trazodone HCl (Trazodone Hcl 100 Mg Tab) 100 mg PO [facility] Last Admin: 11/17/21 21:00 Dose: 100 mg Zinc Sulfate (Zinc Sulfate 220 Mg Cap) 220 mg PO DAILY [facility] Last Admin: 11/17/21 08:22 Dose: 220 mg PHYSICAL EXAMINATION: GENERAL: The patient is alert and oriented x4, Well developed, well nourished. HEENT: Pupils are round and equally reacting to light. EOMI. no scleral icterus. No conjunctival pallor. Normocephalic, atraumatic. No pharyngeal erythema. No thyromegaly. CARDIOVASCULAR: S1 and S2 muffled PULMONARY: diminished breath sounds bilaterally with no wheezing or rhonchi noted. ABDOMEN: soft. tender on exam of upper quadrants. obese. non-distended, normoactive bowel sounds. No palpable organomegaly. MUSCULOSKELETAL: No joint swelling or deformity. EXTREMITIES: No cyanosis, clubbing, or pedal edema. NEUROLOGICAL: Gross neurological examination did not reveal any focal deficits. Diffuse weakness SKIN: No rashes. Assessment: Recurrent Abdominal pain with nausea and fevers in a patient with recent incarcerated incisional hernia repair with mesh and lysis of adhesions, 07/08/2021, multiple readmissions. Possible postop seroma, possible abscess, new metastatic or reactive nodes, recurrent tiny hiatal hernia and possible mild enteritis reported per CT. workup in progress Mildly elevated LFTs, etiology unclear Elevated troponin, no ACS as per cardiology, suspect related to renal failure. Acute on chronic renal failure, stage III Gastroesophageal reflux disease Post op Anemia history of migraines CAD PVD Hypertension Diabetes Melllitus Recent Acute Covid infection Memory impairment, history of Obesity, BMI 37.8 Diarrhea and constipation, possible chronic IBS, advised previously to follow-up outpatient with Dr. Ashlie Reeves, GI. GI prophylaxis DVT prophylaxis Full code Plan: Recommend to continue with current medications and management. Patient normally takes Carafate 4 times daily and will resume as patient continues to have abdominal pain and reporting cramping with diarrhea. C. diff testing was negative and will monitor and encouraged increased activity in oral intake. ID following and oncology and will continue abx for now and will discuss discharge planning. Possible discharge in 24 hours. Family at the bedside and questions and concerns were answered. General surgery following with no plans for surgical intervention at this time. Follow up abd ct per oncology in 2-3 months. Due to multiple complex medical issues, prognosis is guarded. The impression and plan of care has been dictated by Kaitlyn Akhtar, nurse practitioner as directed. MD [place] I have performed a history and examination and MDM of this patient, discussed the same with the dictator, and agree with the dictator's assessment and plan as written ,documented as a scribe. Based on total visit time, I have performed more than 50% of the visit. Any additional findings or plans will be noted. Objective - Vital Signs Vital signs: Vital Signs Temp 98.2 F 11/17/21 12:00 Pulse 67 11/17/21 12:00 Resp 16 11/17/21 12:00 BP 139/80 11/17/21 12:00 Pulse Ox 93 L 11/17/21 12:00 FiO2 21 11/13/21 07:34 Intake & Output 11/16/21 11/17/21 11/17/21 18:59 06:59 18:59 Intake Total 118 1580 Balance 118 1580 Intake: Intake, IV Titration 1100 Amount Piperacillin-Tazobactam 3 100 .375 gm In Sodium Chloride 0.9% 100 ml @ 25 mls/hr IVPB Q8HR MARK Rx# :[id number] Sodium Chloride 0.9% 1, 1000 000 ml @ 100 mls/hr IV . Q10H MARK Rx#:[id number] Oral 118 480 Other: Voiding Method Toilet Toilet Diaper Diaper # Voids 3 # Bowel Movements 1 - Labs CBC & Chem 7: 11/17/21 09:47 11/17/21 09:47 Labs: Abnormal Lab Results - Last 24 Hours (Table) 11/16/21 11/16/21 11/16/21 Range/Units 16:59 20:55 20:55 POC Glucose (mg/dL) 123 H 111 H 111 H (75-99) mg/dL Microbiology - Last 24 Hours (Table) 11/12/21 04:40 Blood Culture - Preliminary Blood No Growth after 120 hours 11/12/21 04:20 Blood Culture - Preliminary Blood No Growth after 120 hours
[2021-11-18 06:13] LABS: Glucose,Whole Blood 101 mg/dL (75-99)
[2021-11-18] MEDS: INSULIN ASPART (NovoLOG) 100 UNIT/ML VIAL SQ SCH ×4 (06:41→21:12)
[2021-11-18] MEDS: PANTOPRAZOLE 40 MG TABLET PO SCH (06:42)
[2021-11-18] MEDS: HYDROmorphone 1 MG/ML 1 ML SYRINGE IVP PRN ×2 (07:58→17:52)
[2021-11-18] MEDS: METOPROLOL TARTRATE 50 MG TAB PO SCH ×2 (07:59→21:13)
[2021-11-18] MEDS: GABAPENTIN 100 MG CAP PO SCH ×2 (07:59→21:13)
[2021-11-18] MEDS: ASCORBIC ACID 500 MG TAB PO SCH ×2 (07:59→21:13)
[2021-11-18] MEDS: SUCRALFATE 1 GM TAB PO SCH ×4 (07:59→21:09)
[2021-11-18] MEDS: PIPERACILLIN-TAZOBACTAM 3.375 GM in SODIUM CHLORIDE 0.9% 100 ML IVPB SCH (07:59)
[2021-11-18] MEDS: ASPIRIN 81 MG PO SCH (07:59)
[2021-11-18] MEDS: CHOLECALCIFEROL 25 MCG (1000 IU) TABLET PO SCH (07:59)
[2021-11-18] MEDS: ATORVASTATIN 40 MG TAB PO SCH (07:59)
[2021-11-18] MEDS: ZINC SULFATE 220 MG CAP PO SCH (07:59)
[2021-11-18] MEDS: CLOTRIMAZOLE 1% CREAM 30 GM TUBE TOPICAL SCH ×2 (08:01→21:12)
[2021-11-18] MEDS: HEPARIN SODIUM,PORCINE/PF 5,000 UNIT/0.5 ML SYRINGE SQ SCH ×2 (09:13→21:12)
[2021-11-18 12:28] LABS: Glucose,Whole Blood 130 mg/dL (75-99)
[2021-11-18 13:50] LABS: Basophils % (A) 1 %; Eosinophils # (A) 0.1 k/uL (0-0.7); Eosinophils % (A) 2 %; HCT 32.1 % (34.0-46.0); HGB 9.9 gm/dL (11.4-16.0); Hypochromasia Slight; Lymphocytes # (A) 1.2 k/uL (1.0-4.8); Lymphocytes % (A) 19 %; MCH 30.3 pg (25.0-35.0); MCHC 30.8 g/dL (31.0-37.0); MCV 98.6 fL (80.0-100.0); Monocytes # (A) 0.2 k/uL (0-1.0); Monocytes % (A) 4 %; Neutrophils # (A) 4.4 k/uL (1.3-7.7); Neutrophils % (A) 72 %; Platelet Count 383 k/uL (150-450); RBC 3.25 m/uL (3.80-5.40); RDW 14.3 % (11.5-15.5); WBC 6.1 k/uL (3.8-10.6)
[2021-11-18 13:55] LABS: Albumin 2.7 g/dL (3.5-5.0); Calcium 8.2 mg/dL (8.4-10.2); Potassium 4.3 mmol/L (3.5-5.1); Total Bilirubin 0.5 mg/dL (0.2-1.3); Total Protein 5.4 g/dL (6.3-8.2)
[2021-11-18 13:59] VITALS: BMI 38.7
[2021-11-18] MEDS: SODIUM CHLORIDE 0.9% 1,000 ML IV SCH ×2 (14:08→21:13)
[2021-11-18] MEDS: ACETAMINOPHEN TAB 325 MG TAB PO PRN (14:12)
--- NOTE | 2021-11-18 14:20 | P.PN ---
Subjective Progress Note Date: 11/18/21 CHIEF COMPLAINT: Abdominal pain HISTORY OF PRESENT ILLNESS: Patient sitting up in bed. Reports her pain is about the same. Denies any nausea or vomiting. She has been having diarrhea. Afebrile. Computed tomography scan of pelvis from 11/17/2019 to postoperative changes and focal soft tissue thickening of the gastroesophageal junction. Fluid-filled colon, diarrhea cannot be excluded. Afebrile. WBC 6.1 hgb 9.9 plt 383 sodium 141 potassium 4.3 creatinine 0.99 AST 95 ALT 83 alk phos 369 Patient seen and examined with Dr. moreno PHYSICAL EXAM: VITAL SIGNS: Reviewed. GENERAL: Well-developed in no acute distress. HEENT: No sclera icterus. Extraocular movements grossly intact. Moist buccal mucosa. Head is atraumatic, normocephalic. ABDOMEN: Soft. Nondistended. NEUROLOGIC: Alert and oriented. Cranial nerves II through XII grossly intact. ASSESSMENT: 1. Abdominal pain possibly secondary to enteritis 2. Post-surgical seroma of abdominal wall noted on CT 11/10/21. Repeat CT for this admission was negative for fluid collection. 3. Hypokalemia resolved 4. Chronic renal insufficiency 5. Elevated troponin 6. History of incisional hernia repair 7. Soft tissue thickening at the GE junction on CAT scan likely due to patient's prior history of Josephine fundoplication 8. Mildly elevated LFTs. History of cholecystectomy PLAN: -Continue supportive care -Continue low-fat diet -Antibiotics per ID service -No surgical intervention planned Physician Host And Hostess note has been reviewed by physician. Signing provider agrees with the documented findings, assessment, and plan of care. Objective - Vital Signs Vital signs: Vital Signs Temp 98.3 F 11/18/21 12:00 Pulse 70 11/18/21 12:00 Resp 16 11/18/21 12:00 BP 161/76 11/18/21 12:00 Pulse Ox 94 L 11/18/21 12:00 FiO2 21 11/13/21 07:34 Intake & Output 11/17/21 11/18/21 11/18/21 18:59 06:59 18:59 Intake Total 240 Balance 240 Weight 87 kg 87 kg Intake: Oral 240 Other: Voiding Method Toilet Diaper # Voids 1 # Bowel Movements 1 - Labs CBC & Chem 7: 11/18/21 13:22 11/18/21 13:22 Labs: Abnormal Lab Results - Last 24 Hours (Table) 11/17/21 11/17/21 11/17/21 Range/Units 09:47 09:47 11:27 RBC 3.19 L (3.80-5.40) m/uL Hgb 10.0 L (11.4-16.0) gm/dL Hct 32.7 L (34.0-46.0) % MCV 102.3 H (80.0-100.0) fL MCHC 30.7 L (31.0-37.0) g/dL Lymphocytes # 0.9 L (1.0-4.8) k/uL Chloride 110 H (98-107) mmol/L Carbon Dioxide 21 L (22-30) mmol/L Glucose 113 H (74-99) mg/dL POC Glucose (mg/dL) 130 H (75-99) mg/dL Calcium 7.8 L (8.4-10.2) mg/dL AST 92 H (14-36) U/L ALT 80 H (4-34) U/L Alkaline Phosphatase 382 H (38-126) U/L Lactate Dehydrogenase (313-618) U/L Total Protein 5.1 L (6.3-8.2) g/dL Albumin 2.6 L (3.5-5.0) g/dL 11/17/21 11/18/21 11/18/21 Range/Units 20:20 01:56 06:08 RBC (3.80-5.40) m/uL Hgb (11.4-16.0) gm/dL Hct (34.0-46.0) % MCV (80.0-100.0) fL MCHC (31.0-37.0) g/dL Lymphocytes # (1.0-4.8) k/uL Chloride (98-107) mmol/L Carbon Dioxide (22-30) mmol/L Glucose (74-99) mg/dL POC Glucose (mg/dL) 133 H 133 H 101 H (75-99) mg/dL Calcium (8.4-10.2) mg/dL AST (14-36) U/L ALT (4-34) U/L Alkaline Phosphatase (38-126) U/L Lactate Dehydrogenase (313-618) U/L Total Protein (6.3-8.2) g/dL Albumin (3.5-5.0) g/dL 11/18/21 11/18/21 11/18/21 Range/Units 12:25 13:22 13:22 RBC 3.25 L (3.80-5.40) m/uL Hgb 9.9 L (11.4-16.0) gm/dL Hct 32.1 L (34.0-46.0) % MCV (80.0-100.0) fL MCHC 30.8 L (31.0-37.0) g/dL Lymphocytes # (1.0-4.8) k/uL Chloride 111 H (98-107) mmol/L Carbon Dioxide 20 L (22-30) mmol/L Glucose 142 H (74-99) mg/dL POC Glucose (mg/dL) 130 H (75-99) mg/dL Calcium 8.2 L (8.4-10.2) mg/dL AST 95 H (14-36) U/L ALT 83 H (4-34) U/L Alkaline Phosphatase 369 H (38-126) U/L Lactate Dehydrogenase 710 H (313-618) U/L Total Protein 5.4 L (6.3-8.2) g/dL Albumin 2.7 L (3.5-5.0) g/dL Microbiology - Last 24 Hours (Table) 11/12/21 04:20 Blood Culture - Final Blood No Growth after 144 hours 11/12/21 04:40 Blood Culture - Final Blood No Growth after 144 hours
--- NOTE | 2021-11-18 15:46 | P.PN ---
Subjective Progress Note Date: 11/17/21 Principal diagnosis: Fever Patient is a 66-year-old female presented to the hospital with abdominal pain in this patient did have a fever on admission to the hospital CT abdominal pelvis done without any contrast did not show any acute abnormality. On today's evaluation that is 11/17/2021, the patient remains to be afebrile, patient is still complaining of epigastric discomfort and wants Carafate to be restarted, patient did have nausea but no vomiting, the patient denies chest pain or shortness of breath the patient did have mild dry cough and no diarrhea Objective - Vital Signs Vital signs: Vital Signs Temp 98.2 F 11/17/21 08:00 Pulse 74 11/17/21 08:00 Resp 18 11/17/21 08:00 BP 137/80 11/17/21 08:00 Pulse Ox 91 L 11/17/21 08:00 FiO2 21 11/13/21 07:34 Intake & Output 11/16/21 11/17/21 11/17/21 18:59 06:59 18:59 Intake Total 118 1580 Balance 118 1580 Intake: Intake, IV Titration 1100 Amount Piperacillin-Tazobactam 3 100 .375 gm In Sodium Chloride 0.9% 100 ml @ 25 mls/hr IVPB Q8HR [facility] Rx# :[id number] Sodium Chloride 0.9% 1, 1000 000 ml @ 100 mls/hr IV . Q10H [facility] Rx#:[id number] Oral 118 480 Other: Voiding Method Toilet Toilet Diaper Diaper # Voids 3 # Bowel Movements 1 - Exam GENERAL DESCRIPTION: An elderly female lying in bed in no distress RESPIRATORY SYSTEM: Unlabored breathing , decreased breath sounds at bases HEART: S1 S2 regular rate and rhythm , ABDOMEN: Soft , no tenderness EXTREMITIES: No edema feet - Labs CBC & Chem 7: 11/18/21 13:22 11/18/21 13:22 Labs: Abnormal Lab Results - Last 24 Hours (Table) 11/16/21 11/16/21 11/16/21 Range/Units 11:27 16:59 20:55 POC Glucose (mg/dL) 130 H 123 H 111 H (75-99) mg/dL 11/16/21 Range/Units 20:55 POC Glucose (mg/dL) 111 H (75-99) mg/dL Microbiology - Last 24 Hours (Table) 11/12/21 04:40 Blood Culture - Preliminary Blood No Growth after 120 hours 11/12/21 04:20 Blood Culture - Preliminary Blood No Growth after 120 hours Assessment and Plan (1) Fever Current Visit: Yes Status: Acute Code(s): R50.9 - FEVER, UNSPECIFIED SNOMED Code(s): 941541864 Plan: 1patient presented hospital with with abdominal pain in this patient has been running a fever for the last 3 days patient did have CT abdominal pelvis which was done without any contrast, was negative urine was negative patient did not have any elevated white count concern for possible viral syndrome as elevated levels are elevated. 2 influenza and COVID nasopharyngeal swab came back negative. CMV serology was negative EBV IgM was negative IgG was positive, patient did have a repeat CT of abdominal pelvis with oral contrast did not show any acute abnormality 3patient fever has resolved and culture have been negative to continue with the Zosyn Time with Patient: Less than 30
--- NOTE | 2021-11-18 15:48 | P.PN ---
Subjective Progress Note Date: 11/18/21 Principal diagnosis: Fever Patient is a 66-year-old female presented to the hospital with abdominal pain in this patient did have a fever on admission to the hospital CT abdominal pelvis done without any contrast did not show any acute abnormality. On today's evaluation that is 11/18/2021, the patient denies any fever or chills, patient is complaining of epigastric discomfort and nausea but no vomiting, the patient denies chest pain or shortness of breath the patient denies any cough or sputum production and no diarrhea Objective - Vital Signs Vital signs: Vital Signs Temp 98.3 F 11/18/21 08:00 Pulse 70 11/18/21 08:00 Resp 16 11/18/21 08:00 BP 167/90 11/18/21 08:00 Pulse Ox 93 L 11/18/21 08:00 FiO2 21 11/13/21 07:34 Intake & Output 11/17/21 11/18/21 11/18/21 18:59 06:59 18:59 Intake Total 240 Balance 240 Weight 87 kg Intake: Oral 240 Other: Voiding Method Toilet Diaper # Voids 1 # Bowel Movements 1 - Exam GENERAL DESCRIPTION: An elderly female lying in bed in no distress RESPIRATORY SYSTEM: Unlabored breathing , decreased breath sounds at bases HEART: S1 S2 regular rate and rhythm , ABDOMEN: Soft , no tenderness EXTREMITIES: No edema feet - Labs CBC & Chem 7: 11/18/21 13:22 11/18/21 13:22 Labs: Abnormal Lab Results - Last 24 Hours (Table) 11/17/21 11/17/21 11/17/21 Range/Units 09:47 09:47 11:27 RBC 3.19 L (3.80-5.40) m/uL Hgb 10.0 L (11.4-16.0) gm/dL Hct 32.7 L (34.0-46.0) % MCV 102.3 H (80.0-100.0) fL MCHC 30.7 L (31.0-37.0) g/dL Lymphocytes # 0.9 L (1.0-4.8) k/uL Chloride 110 H (98-107) mmol/L Carbon Dioxide 21 L (22-30) mmol/L Glucose 113 H (74-99) mg/dL POC Glucose (mg/dL) 130 H (75-99) mg/dL Calcium 7.8 L (8.4-10.2) mg/dL AST 92 H (14-36) U/L ALT 80 H (4-34) U/L Alkaline Phosphatase 382 H (38-126) U/L Total Protein 5.1 L (6.3-8.2) g/dL Albumin 2.6 L (3.5-5.0) g/dL 11/17/21 11/18/21 11/18/21 Range/Units 20:20 01:56 06:08 RBC (3.80-5.40) m/uL Hgb (11.4-16.0) gm/dL Hct (34.0-46.0) % MCV (80.0-100.0) fL MCHC (31.0-37.0) g/dL Lymphocytes # (1.0-4.8) k/uL Chloride (98-107) mmol/L Carbon Dioxide (22-30) mmol/L Glucose (74-99) mg/dL POC Glucose (mg/dL) 133 H 133 H 101 H (75-99) mg/dL Calcium (8.4-10.2) mg/dL AST (14-36) U/L ALT (4-34) U/L Alkaline Phosphatase (38-126) U/L Total Protein (6.3-8.2) g/dL Albumin (3.5-5.0) g/dL 11/18/21 Range/Units 12:25 RBC (3.80-5.40) m/uL Hgb (11.4-16.0) gm/dL Hct (34.0-46.0) % MCV (80.0-100.0) fL MCHC (31.0-37.0) g/dL Lymphocytes # (1.0-4.8) k/uL Chloride (98-107) mmol/L Carbon Dioxide (22-30) mmol/L Glucose (74-99) mg/dL POC Glucose (mg/dL) 130 H (75-99) mg/dL Calcium (8.4-10.2) mg/dL AST (14-36) U/L ALT (4-34) U/L Alkaline Phosphatase (38-126) U/L Total Protein (6.3-8.2) g/dL Albumin (3.5-5.0) g/dL Microbiology - Last 24 Hours (Table) 11/12/21 04:20 Blood Culture - Final Blood No Growth after 144 hours 11/12/21 04:40 Blood Culture - Final Blood No Growth after 144 hours Assessment and Plan (1) Fever Current Visit: Yes Status: Acute Code(s): R50.9 - FEVER, UNSPECIFIED SNOMED Code(s): 401070537 Plan: 1patient presented hospital with with abdominal pain in this patient has been running a fever for the last 3 days patient did have CT abdominal pelvis which was done without any contrast, was negative urine was negative patient did not have any elevated white count concern for possible viral syndrome as elevated levels are elevated. 2 influenza and COVID nasopharyngeal swab came back negative. CMV serology was negative EBV IgM was negative IgG was positive, patient did have a repeat CT of abdominal pelvis with oral contrast did not show any acute abnormality 3patient fever has resolved and culture have been negative, white count is normal, we will discontinue Zosyn and start the patient on Augmentin and monitor clinical course closely Time with Patient: Less than 30
[2021-11-18 16:37] LABS: Erythrocyte Sedimentation Rate 108 mm/hr (0-20)
[2021-11-18 16:51] LABS: Glucose,Whole Blood 122 mg/dL (75-99)
[2021-11-18] MEDS: ONDANSETRON 4 MG/2 ML VIAL IVP PRN (17:20)
[2021-11-18 19:15] LABS: Protein, Total 5.2 g/dL (6.2-8.2)
[2021-11-18 20:29] LABS: Immunoglobulin M 62.9 mg/dL (40.0-280.0)
--- NOTE | 2021-11-18 20:40 | P.PN ---
Subjective Progress Note Date: 11/18/21 Principal diagnosis: adenopathy and anemia Await protein electrophoresis and additional adenopathy work-up, completed work- up ordered Objective - Vital Signs Vital signs: Vital Signs Temp 98.3 F 11/18/21 08:00 Pulse 70 11/18/21 08:00 Resp 16 11/18/21 08:00 BP 167/90 11/18/21 08:00 Pulse Ox 93 L 11/18/21 08:00 FiO2 21 11/13/21 07:34 Intake & Output 11/17/21 11/18/21 11/18/21 18:59 06:59 18:59 Intake Total 240 Balance 240 Weight 87 kg Intake: Oral 240 Other: Voiding Method Toilet Diaper # Voids 1 # Bowel Movements 1 - Exam - Constitutional General appearance: average body habitus, cooperative, mild distress - EENT Eyes: anicteric sclerae, EOMI ENT: hearing grossly normal, normal oropharynx - Neck Neck: no lymphadenopathy - Respiratory Respiratory: bilateral: CTA - Cardiovascular Rhythm: regular Heart sounds: normal: S1, S2 Abnormal Heart Sounds: no systolic murmur, no diastolic murmur, no rub, no S3 Gallop, no S4 Gallop, no click, no other leg Peripheral Edema: bilateral: None - Gastrointestinal General gastrointestinal: no absent bowel sounds, no decreased bowel sounds, no distended, no hepatomegaly, no hyperactive bowel sounds, normal bowel sounds, no organomegaly, no rigid, no scaphoid, soft, no splenomegaly, tenderness, no umbilical hernia, no ventral hernia - Integumentary Integumentary: normal - Neurologic Neurologic: CNII-XII intact - Musculoskeletal Musculoskeletal: strength equal bilaterally - Psychiatric Psychiatric: A&O x's 3, appropriate affect, intact judgment & insight - Labs CBC & Chem 7: 11/18/21 13:22 11/18/21 13:22 Labs: Abnormal Lab Results - Last 24 Hours (Table) 11/17/21 11/17/21 11/17/21 Range/Units 09:47 09:47 11:27 RBC 3.19 L (3.80-5.40) m/uL Hgb 10.0 L (11.4-16.0) gm/dL Hct 32.7 L (34.0-46.0) % MCV 102.3 H (80.0-100.0) fL MCHC 30.7 L (31.0-37.0) g/dL Lymphocytes # 0.9 L (1.0-4.8) k/uL Chloride 110 H (98-107) mmol/L Carbon Dioxide 21 L (22-30) mmol/L Glucose 113 H (74-99) mg/dL POC Glucose (mg/dL) 130 H (75-99) mg/dL Calcium 7.8 L (8.4-10.2) mg/dL AST 92 H (14-36) U/L ALT 80 H (4-34) U/L Alkaline Phosphatase 382 H (38-126) U/L Total Protein 5.1 L (6.3-8.2) g/dL Albumin 2.6 L (3.5-5.0) g/dL 11/17/21 11/18/21 11/18/21 Range/Units 20:20 01:56 06:08 RBC (3.80-5.40) m/uL Hgb (11.4-16.0) gm/dL Hct (34.0-46.0) % MCV (80.0-100.0) fL MCHC (31.0-37.0) g/dL Lymphocytes # (1.0-4.8) k/uL Chloride (98-107) mmol/L Carbon Dioxide (22-30) mmol/L Glucose (74-99) mg/dL POC Glucose (mg/dL) 133 H 133 H 101 H (75-99) mg/dL Calcium (8.4-10.2) mg/dL AST (14-36) U/L ALT (4-34) U/L Alkaline Phosphatase (38-126) U/L Total Protein (6.3-8.2) g/dL Albumin (3.5-5.0) g/dL 11/18/21 Range/Units 12:25 RBC (3.80-5.40) m/uL Hgb (11.4-16.0) gm/dL Hct (34.0-46.0) % MCV (80.0-100.0) fL MCHC (31.0-37.0) g/dL Lymphocytes # (1.0-4.8) k/uL Chloride (98-107) mmol/L Carbon Dioxide (22-30) mmol/L Glucose (74-99) mg/dL POC Glucose (mg/dL) 130 H (75-99) mg/dL Calcium (8.4-10.2) mg/dL AST (14-36) U/L ALT (4-34) U/L Alkaline Phosphatase (38-126) U/L Total Protein (6.3-8.2) g/dL Albumin (3.5-5.0) g/dL Microbiology - Last 24 Hours (Table) 11/12/21 04:20 Blood Culture - Final Blood No Growth after 144 hours 11/12/21 04:40 Blood Culture - Final Blood No Growth after 144 hours Assessment and Plan Plan: CT scan - abdomen: report reviewed CT scan - pelvis: report reviewed Assessment and Plan (1) Lymphadenopathy Current Visit: Yes Status: Acute Code(s): R59.1 - GENERALIZED ENLARGED LYMPH NODES SNOMED Code(s): 04456638 (2) Abdominal pain Current Visit: Yes Status: Acute Code(s): R10.9 - UNSPECIFIED ABDOMINAL PAIN SNOMED Code(s): 17622382 (3) Fever Current Visit: Yes Status: Acute Code(s): R50.9 - FEVER, UNSPECIFIED SNOMED Code(s): 610947312 (4) Anemia Current Visit: Yes Status: Acute Code(s): D64.9 - ANEMIA, UNSPECIFIED SNOMED Code(s): 679412865 Plan: CBC and CMP today ? Blood loss with infectious/ Inflammatory etiology anemia Protein electrophoresis and further adenopathy/anemia panel ordered Hold off on parenteral iron given infectious picture and still febrile Plan to follow-up in office in 4 weeks
[2021-11-18 21:07] LABS: Glucose,Whole Blood 178 mg/dL (75-99)
[2021-11-18] MEDS: AMOXIC-POT CLAV 875-125MG 1 EACH TAB PO SCH (21:12)
[2021-11-18] MEDS: TOPIRAMATE 25 MG TAB PO SCH (21:13)
[2021-11-18] MEDS: LORATADINE 10 MG TAB PO SCH (21:13)
[2021-11-18] MEDS: traZODone HCL 100 MG TAB PO SCH (21:13)
[2021-11-19 02:04] LABS: Glucose,Whole Blood 122 mg/dL (75-99)
[2021-11-19] MEDS: SODIUM CHLORIDE 0.9% 1,000 ML IV SCH ×2 (03:53→15:33)
--- NOTE | 2021-11-19 04:17 | P.PN ---
Subjective Progress Note Date: 11/18/21 This is a 66-year-old female with past medical history of recent incarcerated incisional hernia repair with mesh and lysis of adhesions on 07/08/2021, readmitted with recurrent abdominal pain .Returned to the ER on 11/10 with similar presentation as on prior visits, reporting " mid epigastric pain radiating across bilateral total quadrants, worse on the right side". KUB reportedly nonacute abdomen, no evidence of constipation no adverse change, clearing of dilated gas-filled small bowel in the mid abdomen compared to old exam, clearing of increased density over the abdomen suggestive of ascites hiral dent on the old exam .CT of abdomen and pelvis with contrast reported postsurgical change along the anterior abdominal wall with prior mesh repair, subcutaneous air seen on 07/28/2021 resolved though a platelike fluid collection remains measuring 9.5 x 6.1 cm and 1.1 cm plaque along the superficial fascia, chronic seroma versus abscess are possibilities. previous partial right hemothorax colectomy but with new right mid abdominal mesenteric nodularity measuring up to 1.1 cm, recurrent disease with new metastatic nodes are not excluded at this time versus reactive , prominent fluid within the lower abdominal small bowel loops and some liquid stool in the transverse colon- correlate for enteritis,s/p rsoibel fundoplication but with recurrent tiny hiatal hernia.Mild circumferentail wall thickening distal esophagus possibly esophigitis. Returned to the ER on 11/12 , admitted with ongoing abdominal pain accompanied by nausea with no emesis and fevers. Reports most recent bowel movement yesterday. Denies bleeding or dark stools. T-max 101.1, normal WBC. Creatinine 1.14 Patient complaining of right hip pain, right hip x-ray reviewed completed reporting no fracture or dislocation, no abnormality evident. 11/15/2021 reports abdominal pain continues, unchanged. States pain worse in the "bilateral upper quadrants wrapping around". On previous occasions patient described abdominal pain is a twisting sensation, which currently does not exist at this time. Reports pain is not worsened by moving or eating.Denies nausea, vomiting. Positive diarrhea, negative for C. difficile colitis. T-max 100.6,Continues on IV antibiotics of Zosyn. Coronal virus, influenza type a and type B not detected. Urine legionella AG negative. CMV/EBV pending. CRP increased from 16.2-29.5, sed rate elevated, 104. Oncology consult in place, recommendations pending. 11/16/2021 Sitting up in chair reporting ongoing abdominal pain, teary-eyed. Feels hungry but unable to eat. Blood sugars controlled. Positive bowel movement today ,more formed. Positive sweats and chills. Positive headache, reports nasal brown mucousy drainage. Hemoglobin 10.3, platelets 282. Iron 10, TIBC 241,% saturation 3.99, transferrin 172, ferritin 252, Vit. B12> 2000. Renal function continues improving, creatinine down to 1.09. T-max 100.2, normal WBC. Maintained on Zosyn. Evaluated by oncology with recommendations noted and appreciated. 11/17/2021 This is a pleasant 66-year-old female was recently admitted with abdominal pain and possible hernia repair with general surgery following. Patient continues with diarrhea and C. diff testing was negative and continues with abdominal pain and normally takes Carafate 4 times daily and will resume this med and encourage increased activity with possible discharge tomorrow. Patient denies chest pain or shortness of breath. Patient is afebrile. Patient follows with Dr. Lewis in the outpatient setting. 11/18/2021 Patient is seen this am and continues to report abdominal pain in the mid epigastric region and reports to not having much of an appetite. General surgery following with no plans for surgical intervention at this time. Oncology also following and will follow in the outpatient setting with repeat ct in 2-3 months. Patient resumed on carafate and reports to some improvement in abdomen as compared to yesterday. Encouraged small frequent meals and also encouraged increased activity as tolerated. Patient is afebrile. Patient denies chest pain or shortness of breath. Review of systems: Constitutional: No reports of fatigue, fever, or chills Cardiovascular: No reports of chest pain or palpitations Respiratory: No reports of shortness of breath or cough GI: no reports of nausea, and reports continued abdominal pain although somewhat improved from yesterday : No reports of dysuria or retention Neurovascular: reports of generalized weakness All medications have been reviewed Active Medications Acetaminophen (Acetaminophen Tab 325 Mg Tab) 650 mg PO Q6HR PRN PRN Reason: Mild Pain or Fever > 100.5 Last Admin: 11/18/21 14:12 Dose: 650 mg Amoxicillin/Clavulanate Potassium (Amoxic-Pot Clav 875-125mg 1 Each Tab) 1 each PO Q12HR [facility]; Protocol Last Admin: 11/18/21 21:12 Dose: 1 each Ascorbic Acid (Ascorbic Acid 500 Mg Tab) 500 mg PO BID [facility] Last Admin: 11/18/21 21:13 Dose: 500 mg Aspirin (Aspirin 81 Mg) 81 mg PO DAILY [facility] Last Admin: 11/18/21 07:59 Dose: 81 mg Atorvastatin Calcium (Atorvastatin 40 Mg Tab) 40 mg PO DAILY [facility] Last Admin: 11/18/21 07:59 Dose: 40 mg Cholecalciferol (Cholecalciferol 25 Mcg (1000 Iu) Tablet) 100 mcg PO DAILY [facility] Last Admin: 11/18/21 07:59 Dose: 100 mcg Clotrimazole (Clotrimazole 1% Cream 30 Gm Tube) 1 applic TOPICAL BID [facility]; Protocol Last Admin: 11/18/21 21:12 Dose: 1 applic Gabapentin (Gabapentin 100 Mg Cap) 100 mg PO BID [facility] Last Admin: 11/18/21 21:13 Dose: 100 mg Heparin Sodium (Porcine) (Heparin Sodium,Porcine/Pf 5,000 Unit/0.5 Ml Syringe) 5,000 unit SQ Q12HR [facility] Last Admin: 11/18/21 21:12 Dose: 5,000 unit Hydromorphone HCl (Hydromorphone 1 Mg/Ml 1 Ml Syringe) 1 mg IVP Q3HR PRN PRN Reason: Severe Pain Last Admin: 11/18/21 17:52 Dose: 1 mg Sodium Chloride (Saline 0.9%) 1,000 mls @ 100 mls/hr IV .Q10H [facility] Last Admin: 11/19/21 03:53 Dose: 100 mls/hr Insulin Aspart (Insulin Aspart (Novolog) 100 Unit/Ml Vial) 0 unit SQ ACHS [facility]; Protocol Last Admin: 11/18/21 21:12 Dose: 2 unit Loratadine (Loratadine 10 Mg Tab) 5 mg PO HS [facility] Last Admin: 11/18/21 21:13 Dose: 5 mg Metoprolol Tartrate (Metoprolol Tartrate 50 Mg Tab) 50 mg PO BID [facility] Last Admin: 11/18/21 21:13 Dose: 50 mg Miscellaneous Information (Potassium Replacement Protocol 1 Each Misc) 1 each MISCELLANE DAILY PRN; Protocol PRN Reason: Per Protocol Naloxone HCl (Naloxone 0.4 Mg/Ml 1 Ml Vial) 0.2 mg IV Q2M PRN PRN Reason: Opioid Reversal Ondansetron HCl (Ondansetron 4 Mg/2 Ml Vial) 4 mg IVP Q6H PRN PRN Reason: Nausea And Vomiting Last Admin: 11/18/21 17:20 Dose: 4 mg Pantoprazole Sodium (Pantoprazole 40 Mg Tablet) 40 mg PO AC-BRKFST [facility] Last Admin: 11/18/21 06:42 Dose: 40 mg Sucralfate (Sucralfate 1 Gm Tab) 1 gm PO QID [facility] Last Admin: 11/18/21 21:09 Dose: 1 gm Topiramate (Topiramate 25 Mg Tab) 50 mg PO [facility] Last Admin: 11/18/21 21:13 Dose: 50 mg Tramadol HCl (Tramadol 50 Mg Tab) 50 mg PO QID PRN PRN Reason: Pain/Discomfort Last Admin: 11/16/21 09:02 Dose: 50 mg Trazodone HCl (Trazodone Hcl 100 Mg Tab) 100 mg PO [facility] Last Admin: 11/18/21 21:13 Dose: 100 mg Zinc Sulfate (Zinc Sulfate 220 Mg Cap) 220 mg PO DAILY [facility] Last Admin: 11/18/21 07:59 Dose: 220 mg PHYSICAL EXAMINATION: GENERAL: The patient is alert and oriented x4, Well developed, well nourished. HEENT: Pupils are round and equally reacting to light. EOMI. no scleral icterus. No conjunctival pallor. Normocephalic, atraumatic. No pharyngeal erythema. No thyromegaly. CARDIOVASCULAR: S1 and S2 muffled PULMONARY: diminished breath sounds bilaterally with no wheezing or rhonchi noted. ABDOMEN: soft. tender on exam of upper quadrants. obese. non-distended, normoactive bowel sounds. No palpable organomegaly. MUSCULOSKELETAL: No joint swelling or deformity. EXTREMITIES: No cyanosis, clubbing, or pedal edema. NEUROLOGICAL: Gross neurological examination did not reveal any focal deficits. Diffuse weakness SKIN: No rashes. Assessment: Recurrent Abdominal pain with nausea and fevers in a patient with recent incarcerated incisional hernia repair with mesh and lysis of adhesions, 07/08, multiple readmissions. Possible postop seroma, possible abscess, new metastatic or reactive nodes, recurrent tiny hiatal hernia and possible mild enteritis reported per CT. workup in progress Mildly elevated LFTs, etiology unclear Elevated troponin, no ACS as per cardiology, suspect related to renal failure. Acute on chronic renal failure, stage III Gastroesophageal reflux disease Post op Anemia history of migraines CAD PVD Hypertension Diabetes Melllitus Recent Acute Covid infection Memory impairment, history of Obesity, BMI 37.8 Diarrhea and constipation, possible chronic IBS, advised previously to follow-up outpatient with Dr. Ashlie Reeves, GI. GI prophylaxis DVT prophylaxis Full code Plan: Recommend to continue with current medications and management. Patient resumed on Carafate 4 times daily and continues to have abdominal pain and reporting cramping with some improvement. C. diff testing was negative and will monitor and encouraged increased activity in oral intake. ID following and oncology and will continue abx for now and will discuss discharge planning. On oral augmentin to finish a short course on discharge. Possible discharge in 24 hours. General surgery following with no plans for surgical intervention at this time. Follow up abd ct per oncology in 2-3 months. Due to multiple complex medical issues, prognosis is guarded. Possible discharge in 24 hours. The impression and plan of care has been dictated by Kaitlyn Akhtar, nurse practitioner as directed. Dr. Alda MD I have performed a history and examination and MDM of this patient, discussed the same with the dictator, and agree with the dictator's assessment and plan as written ,documented as a scribe. Based on total visit time, I have performed more than 50% of the visit. Any additional findings or plans will be noted. Objective - Vital Signs Vital signs: Vital Signs Temp 98.4 F 11/19/21 00:00 Pulse 65 11/19/21 02:00 Resp 16 11/19/21 02:00 BP 137/75 11/19/21 00:00 Pulse Ox 93 L 11/19/21 00:00 FiO2 21 11/13/21 07:34 Intake & Output 11/18/21 11/18/21 11/19/21 06:59 18:59 06:59 Intake Total 0 240 Balance 0 240 Weight 87 kg 87 kg Intake: Oral 0 240 Other: Voiding Method Toilet Toilet Diaper Diaper # Voids 1 # Bowel Movements 1 2 - Labs CBC & Chem 7: 11/18/21 13:22 11/18/21 13:22 Labs: Abnormal Lab Results - Last 24 Hours (Table) 11/18/21 11/18/21 11/18/21 Range/Units 06:08 12:25 13:22 RBC 3.25 L (3.80-5.40) m/uL Hgb 9.9 L (11.4-16.0) gm/dL Hct 32.1 L (34.0-46.0) % MCHC 30.8 L (31.0-37.0) g/dL ESR 108 H (0-20) mm/hr Chloride (98-107) mmol/L Carbon Dioxide (22-30) mmol/L Glucose (74-99) mg/dL POC Glucose (mg/dL) 101 H 130 H (75-99) mg/dL Calcium (8.4-10.2) mg/dL AST (14-36) U/L ALT (4-34) U/L Alkaline Phosphatase (38-126) U/L Lactate Dehydrogenase (313-618) U/L Total Protein (6.3-8.2) g/dL Total Protein (PEP) (6.2-8.2) g/dL Albumin (3.5-5.0) g/dL IgG (700.0-1600.0) mg/dL 11/18/21 11/18/21 11/18/21 Range/Units 13:22 13:22 13:22 RBC (3.80-5.40) m/uL Hgb (11.4-16.0) gm/dL Hct (34.0-46.0) % MCHC (31.0-37.0) g/dL ESR (0-20) mm/hr Chloride 111 H (98-107) mmol/L Carbon Dioxide 20 L (22-30) mmol/L Glucose 142 H (74-99) mg/dL POC Glucose (mg/dL) (75-99) mg/dL Calcium 8.2 L (8.4-10.2) mg/dL AST 95 H (14-36) U/L ALT 83 H (4-34) U/L Alkaline Phosphatase 369 H (38-126) U/L Lactate Dehydrogenase 710 H (313-618) U/L Total Protein 5.4 L (6.3-8.2) g/dL Total Protein (PEP) 5.2 L (6.2-8.2) g/dL Albumin 2.7 L (3.5-5.0) g/dL IgG 599.0 L (700.0-1600.0) mg/dL 11/18/21 11/18/21 11/19/21 Range/Units 16:47 20:38 02:02 RBC (3.80-5.40) m/uL Hgb (11.4-16.0) gm/dL Hct (34.0-46.0) % MCHC (31.0-37.0) g/dL ESR (0-20) mm/hr Chloride (98-107) mmol/L Carbon Dioxide (22-30) mmol/L Glucose (74-99) mg/dL POC Glucose (mg/dL) 122 H 178 H 122 H (75-99) mg/dL Calcium (8.4-10.2) mg/dL AST (14-36) U/L ALT (4-34) U/L Alkaline Phosphatase (38-126) U/L Lactate Dehydrogenase (313-618) U/L Total Protein (6.3-8.2) g/dL Total Protein (PEP) (6.2-8.2) g/dL Albumin (3.5-5.0) g/dL IgG (700.0-1600.0) mg/dL Microbiology - Last 24 Hours (Table) 11/12/21 04:20 Blood Culture - Final Blood No Growth after 144 hours 11/12/21 04:40 Blood Culture - Final Blood No Growth after 144 hours
[2021-11-19 06:05] LABS: Glucose,Whole Blood 133 mg/dL (75-99)
[2021-11-19] MEDS: INSULIN ASPART (NovoLOG) 100 UNIT/ML VIAL SQ SCH ×4 (06:28→21:57)
[2021-11-19] MEDS: PANTOPRAZOLE 40 MG TABLET PO SCH (06:28)
[2021-11-19] MEDS: AMOXIC-POT CLAV 875-125MG 1 EACH TAB PO SCH ×2 (08:19→22:02)
[2021-11-19] MEDS: GABAPENTIN 100 MG CAP PO SCH ×2 (08:19→22:03)
[2021-11-19] MEDS: CHOLECALCIFEROL 25 MCG (1000 IU) TABLET PO SCH (08:19)
[2021-11-19] MEDS: ASCORBIC ACID 500 MG TAB PO SCH ×2 (08:19→22:03)
[2021-11-19] MEDS: ATORVASTATIN 40 MG TAB PO SCH (08:19)
[2021-11-19] MEDS: ZINC SULFATE 220 MG CAP PO SCH (08:19)
[2021-11-19] MEDS: ASPIRIN 81 MG PO SCH (08:19)
[2021-11-19] MEDS: HEPARIN SODIUM,PORCINE/PF 5,000 UNIT/0.5 ML SYRINGE SQ SCH ×2 (08:19→22:02)
[2021-11-19] MEDS: METOPROLOL TARTRATE 50 MG TAB PO SCH ×2 (08:19→22:03)
[2021-11-19] MEDS: CLOTRIMAZOLE 1% CREAM 30 GM TUBE TOPICAL SCH ×2 (08:20→22:04)
[2021-11-19] MEDS: SUCRALFATE 1 GM TAB PO SCH ×4 (08:20→22:03)
[2021-11-19 08:54] LABS: Free Kappa Lt Chain Qnt, Serum 3.36 mg/dL (0.33-1.94); Free Lambda Lt Chain Qnt, Seru 4.07 mg/dL (0.57-2.63)
[2021-11-19 09:04] LABS: Basophils % (A) 0 %; Eosinophils # (A) 0.2 k/uL (0-0.7); Eosinophils % (A) 3 %; HCT 32.7 % (34.0-46.0); HGB 9.9 gm/dL (11.4-16.0); Hypochromasia Moderate; Lymphocytes # (A) 1.2 k/uL (1.0-4.8); Lymphocytes % (A) 18 %; MCH 30.2 pg (25.0-35.0); MCHC 30.1 g/dL (31.0-37.0); MCV 100.5 fL (80.0-100.0); Macrocytosis Slight; Mean Platelet Volume 7.9; Monocytes # (A) 0.2 k/uL (0-1.0); Monocytes % (A) 3 %; Neutrophils # (A) 4.9 k/uL (1.3-7.7); Neutrophils % (A) 73 %; Platelet Count 395 k/uL (150-450); RBC 3.26 m/uL (3.80-5.40); RDW 14.4 % (11.5-15.5); WBC 6.7 k/uL (3.8-10.6)
[2021-11-19 12:12] LABS: Glucose,Whole Blood 138 mg/dL (75-99)
--- NOTE | 2021-11-19 15:51 | P.PN ---
Subjective Progress Note Date: 11/19/21 This is a 66-year-old female with past medical history of recent incarcerated incisional hernia repair with mesh and lysis of adhesions on 07/08/2021, readmitted with recurrent abdominal pain .Returned to the ER on 11/10 with similar presentation as on prior visits, reporting " mid epigastric pain radiating across bilateral total quadrants, worse on the right side". KUB reportedly nonacute abdomen, no evidence of constipation no adverse change, clearing of dilated gas-filled small bowel in the mid abdomen compared to old exam, clearing of increased density over the abdomen suggestive of ascites hiral dent on the old exam .CT of abdomen and pelvis with contrast reported postsurgical change along the anterior abdominal wall with prior mesh repair, subcutaneous air seen on 07/28/2021 resolved though a platelike fluid collection remains measuring 9.5 x 6.1 cm and 1.1 cm plaque along the superficial fascia, chronic seroma versus abscess are possibilities. previous partial right hemothorax colectomy but with new right mid abdominal mesenteric nodularity measuring up to 1.1 cm, recurrent disease with new metastatic nodes are not excluded at this time versus reactive , prominent fluid within the lower abdominal small bowel loops and some liquid stool in the transverse colon- correlate for enteritis,s/p rosibel fundoplication but with recurrent tiny hiatal hernia.Mild circumferentail wall thickening distal esophagus possibly esophigitis. Returned to the ER on 11/12 , admitted with ongoing abdominal pain accompanied by nausea with no emesis and fevers. Reports most recent bowel movement yesterday. Denies bleeding or dark stools. T-max 101.1, normal WBC. Creatinine 1.14 Patient complaining of right hip pain, right hip x-ray reviewed completed reporting no fracture or dislocation, no abnormality evident. 11/15/2021 reports abdominal pain continues, unchanged. States pain worse in the "bilateral upper quadrants wrapping around". On previous occasions patient described abdominal pain is a twisting sensation, which currently does not exist at this time. Reports pain is not worsened by moving or eating.Denies nausea, vomiting. Positive diarrhea, negative for C. difficile colitis. T-max 100.6,Continues on IV antibiotics of Zosyn. Coronal virus, influenza type a and type B not detected. Urine legionella AG negative. CMV/EBV pending. CRP increased from 16.2-29.5, sed rate elevated, 104. Oncology consult in place, recommendations pending. 11/16/2021 Sitting up in chair reporting ongoing abdominal pain, teary-eyed. Feels hungry but unable to eat. Blood sugars controlled. Positive bowel movement today ,more formed. Positive sweats and chills. Positive headache, reports nasal brown mucousy drainage. Hemoglobin 10.3, platelets 282. Iron 10, TIBC 241,% saturation 3.99, transferrin 172, ferritin 252, Vit. B12> 2000. Renal function continues improving, creatinine down to 1.09. T-max 100.2, normal WBC. Maintained on Zosyn. Evaluated by oncology with recommendations noted and appreciated. 11/17/2021 This is a pleasant 66-year-old female was recently admitted with abdominal pain and possible hernia repair with general surgery following. Patient continues with diarrhea and C. diff testing was negative and continues with abdominal pain and normally takes Carafate 4 times daily and will resume this med and encourage increased activity with possible discharge tomorrow. Patient denies chest pain or shortness of breath. Patient is afebrile. Patient follows with Dr. Lewis in the outpatient setting. 11/18/2021 Patient is seen this am and continues to report abdominal pain in the mid epigastric region and reports to not having much of an appetite. General surgery following with no plans for surgical intervention at this time. Oncology also following and will follow in the outpatient setting with repeat ct in 2-3 months. Patient resumed on carafate and reports to some improvement in abdomen as compared to yesterday. Encouraged small frequent meals and also encouraged increased activity as tolerated. Patient is afebrile. Patient denies chest pain or shortness of breath. 11/19/2021 Patient is continuing to slowly improve in regards to abdominal pain, but continues with diarrhea and also not eating very well. Per nursing staff patient is only eating tomato soup. No reports of nausea or vomiting noted but oral intake is poor. Encouraged oral intake. Oncology also following and electrophoresis work up in progress. Patient is continued on oral augmenting with ID following and will have one week course on discharge. Patient is afebri le and denies shortness of breath. Review of systems: Constitutional: No reports of fatigue, fever, or chills Cardiovascular: No reports of chest pain or palpitations Respiratory: No reports of shortness of breath or cough GI: no reports of nausea, and reports continued abdominal pain although somewhat improved from yesterday and no real appetite. : No reports of dysuria or retention Neurovascular: reports of generalized weakness All medications have been reviewed Active Medications Acetaminophen (Acetaminophen Tab 325 Mg Tab) 650 mg PO Q6HR PRN PRN Reason: Mild Pain or Fever > 100.5 Last Admin: 11/18/21 14:12 Dose: 650 mg Amoxicillin/Clavulanate Potassium (Amoxic-Pot Clav 875-125mg 1 Each Tab) 1 each PO Q12HR [facility]; Protocol Last Admin: 11/19/21 08:19 Dose: 1 each Ascorbic Acid (Ascorbic Acid 500 Mg Tab) 500 mg PO BID [facility] Last Admin: 11/19/21 08:19 Dose: 500 mg Aspirin (Aspirin 81 Mg) 81 mg PO DAILY [facility] Last Admin: 11/19/21 08:19 Dose: 81 mg Atorvastatin Calcium (Atorvastatin 40 Mg Tab) 40 mg PO DAILY [facility] Last Admin: 11/19/21 08:19 Dose: 40 mg Cholecalciferol (Cholecalciferol 25 Mcg (1000 Iu) Tablet) 100 mcg PO DAILY [facility] Last Admin: 11/19/21 08:19 Dose: 100 mcg Clotrimazole (Clotrimazole 1% Cream 30 Gm Tube) 1 applic TOPICAL BID [facility]; Protocol Last Admin: 11/19/21 08:20 Dose: 1 applic Gabapentin (Gabapentin 100 Mg Cap) 100 mg PO BID [facility] Last Admin: 11/19/21 08:19 Dose: 100 mg Heparin Sodium (Porcine) (Heparin Sodium,Porcine/Pf 5,000 Unit/0.5 Ml Syringe) 5,000 unit SQ Q12HR [facility] Last Admin: 11/19/21 08:19 Dose: 5,000 unit Hydromorphone HCl (Hydromorphone 1 Mg/Ml 1 Ml Syringe) 1 mg IVP Q3HR PRN PRN Reason: Severe Pain Last Admin: 11/18/21 17:52 Dose: 1 mg Sodium Chloride (Saline 0.9%) 1,000 mls @ 100 mls/hr IV .Q10H [facility] Last Admin: 11/19/21 15:33 Dose: 100 mls/hr Insulin Aspart (Insulin Aspart (Novolog) 100 Unit/Ml Vial) 0 unit SQ ACHS [facility]; Protocol Last Admin: 11/19/21 12:40 Dose: 1 unit Loratadine (Loratadine 10 Mg Tab) 5 mg PO [facility] Last Admin: 11/18/21 21:13 Dose: 5 mg Metoprolol Tartrate (Metoprolol Tartrate 50 Mg Tab) 50 mg PO BID [facility] Last Admin: 11/19/21 08:19 Dose: 50 mg Miscellaneous Information (Potassium Replacement Protocol 1 Each Misc) 1 each MISCELLANE DAILY PRN; Protocol PRN Reason: Per Protocol Naloxone HCl (Naloxone 0.4 Mg/Ml 1 Ml Vial) 0.2 mg IV Q2M PRN PRN Reason: Opioid Reversal Ondansetron HCl (Ondansetron 4 Mg/2 Ml Vial) 4 mg IVP Q6H PRN PRN Reason: Nausea And Vomiting Last Admin: 11/18/21 17:20 Dose: 4 mg Pantoprazole Sodium (Pantoprazole 40 Mg Tablet) 40 mg PO AC-BRKFST [facility] Last Admin: 11/19/21 06:28 Dose: 40 mg Sucralfate (Sucralfate 1 Gm Tab) 1 gm PO QID [facility] Last Admin: 11/19/21 12:40 Dose: 1 gm Topiramate (Topiramate 25 Mg Tab) 50 mg PO [facility] Last Admin: 11/18/21 21:13 Dose: 50 mg Tramadol HCl (Tramadol 50 Mg Tab) 50 mg PO QID PRN PRN Reason: Pain/Discomfort Last Admin: 11/16/21 09:02 Dose: 50 mg Trazodone HCl (Trazodone Hcl 100 Mg Tab) 100 mg PO [facility] Last Admin: 11/18/21 21:13 Dose: 100 mg Zinc Sulfate (Zinc Sulfate 220 Mg Cap) 220 mg PO DAILY [facility] Last Admin: 11/19/21 08:19 Dose: 220 mg PHYSICAL EXAMINATION: GENERAL: The patient is alert and oriented x4, Well developed, well nourished. HEENT: Pupils are round and equally reacting to light. EOMI. no scleral icterus. No conjunctival pallor. Normocephalic, atraumatic. No pharyngeal erythema. No thyromegaly. CARDIOVASCULAR: S1 and S2 muffled PULMONARY: diminished breath sounds bilaterally with no wheezing or rhonchi noted. ABDOMEN: soft. less tender on exam of upper quadrants. obese. non-distended, normoactive bowel sounds. No palpable organomegaly. MUSCULOSKELETAL: No joint swelling or deformity. EXTREMITIES: No cyanosis, clubbing, or pedal edema. NEUROLOGICAL: Gross neurological examination did not reveal any focal deficits. Diffuse weakness SKIN: No rashes. Assessment: Recurrent Abdominal pain with nausea and fevers in a patient with recent incarcerated incisional hernia repair with mesh and lysis of adhesions, 07/08/2021, multiple readmissions. Possible postop seroma, possible abscess, new metastatic or reactive nodes, recurrent tiny hiatal hernia and possible mild enteritis reported per CT. workup in progress Mildly elevated LFTs, etiology unclear Elevated troponin, no ACS as per cardiology, suspect related to renal failure. Acute on chronic renal failure, stage III Gastroesophageal reflux disease Post op Anemia history of migraines CAD PVD Hypertension Diabetes Melllitus Recent Acute Covid infection Memory impairment, history of Obesity, BMI 38.7 Diarrhea and constipation, possible chronic IBS, advised previously to follow-up outpatient with Dr. Ashlie Reeves GI. GI prophylaxis DVT prophylaxis Full code Plan: Recommend to continue with current medications and management. Patient resumed on Carafate 4 times daily and continues to have abdominal pain and reporting cramping with some improvement. C. diff testing was negative and will monitor and encouraged increased activity in oral intake. ID following and oncology and will continue abx for now and will continue oral augmentin for one week on discharge per ID. Poor oral intake. General surgery following with no plans for surgical intervention at this time. Follow up abd ct per oncology in 2-3 months and electrophoresis work up in progress per hematology. Due to multiple complex medical issues, prognosis is guarded. The impression and plan of care has been dictated by Kaitlyn Akhtar, nurse practitioner as directed. Dr. Alda MD I have performed a history and examination and MDM of this patient, discussed the same with the dictator, and agree with the dictator's assessment and plan as written ,documented as a scribe. Based on total visit time, I have performed more than 50% of the visit. Any additional findings or plans will be noted. Objective - Vital Signs Vital signs: Vital Signs Temp 96.9 F L 11/19/21 08:05 Pulse 69 11/19/21 10:01 Resp 18 11/19/21 10:01 BP 177/79 11/19/21 08:05 Pulse Ox 93 L 11/19/21 08:05 FiO2 21 11/13/21 07:34 Intake & Output 11/18/21 11/19/21 11/19/21 18:59 06:59 18:59 Intake Total 0 1840 Output Total 0 Balance 0 1840 0 Weight 87 kg Intake: Intake, IV Titration 1000 Amount Sodium Chloride 0.9% 1, 1000 000 ml @ 100 mls/hr IV . Q10H [facility] Rx#:[id number] Oral 0 840 Output: Urine 0 Other: Voiding Method Toilet Toilet Diaper Diaper # Voids 2 1 # Bowel Movements 2 1 - Labs CBC & Chem 7: 11/19/21 08:44 11/18/21 13:22 Labs: Abnormal Lab Results - Last 24 Hours (Table) 11/18/21 11/18/21 11/18/21 Range/Units 13:22 13:22 13:22 RBC 3.25 L (3.80-5.40) m/uL Hgb 9.9 L (11.4-16.0) gm/dL Hct 32.1 L (34.0-46.0) % MCV (80.0-100.0) fL MCHC 30.8 L (31.0-37.0) g/dL ESR 108 H (0-20) mm/hr Chloride 111 H (98-107) mmol/L Carbon Dioxide 20 L (22-30) mmol/L Glucose 142 H (74-99) mg/dL POC Glucose (mg/dL) (75-99) mg/dL Calcium 8.2 L (8.4-10.2) mg/dL AST 95 H (14-36) U/L ALT 83 H (4-34) U/L Alkaline Phosphatase 369 H (38-126) U/L Lactate Dehydrogenase 710 H (313-618) U/L Total Protein 5.4 L (6.3-8.2) g/dL Total Protein (PEP) 5.2 L (6.2-8.2) g/dL Albumin 2.7 L (3.5-5.0) g/dL IgG (700.0-1600.0) mg/dL Free Strong LC, Quant 3.36 H (0.33-1.94) mg/dL Free Lambda LC, Quant 4.07 H (0.57-2.63) mg/dL 11/18/21 11/18/21 11/18/21 Range/Units 13:22 16:47 20:38 RBC (3.80-5.40) m/uL Hgb (11.4-16.0) gm/dL Hct (34.0-46.0) % MCV (80.0-100.0) fL MCHC (31.0-37.0) g/dL ESR (0-20) mm/hr Chloride (98-107) mmol/L Carbon Dioxide (22-30) mmol/L Glucose (74-99) mg/dL POC Glucose (mg/dL) 122 H 178 H (75-99) mg/dL Calcium (8.4-10.2) mg/dL AST (14-36) U/L ALT (4-34) U/L Alkaline Phosphatase (38-126) U/L Lactate Dehydrogenase (313-618) U/L Total Protein (6.3-8.2) g/dL Total Protein (PEP) (6.2-8.2) g/dL Albumin (3.5-5.0) g/dL IgG 599.0 L (700.0-1600.0) mg/dL Free Strong LC, Quant (0.33-1.94) mg/dL Free Lambda LC, Quant (0.57-2.63) mg/dL 11/19/21 11/19/21 11/19/21 Range/Units 02:02 05:37 08:44 RBC 3.26 L (3.80-5.40) m/uL Hgb 9.9 L (11.4-16.0) gm/dL Hct 32.7 L (34.0-46.0) % MCV 100.5 H (80.0-100.0) fL MCHC 30.1 L (31.0-37.0) g/dL ESR (0-20) mm/hr Chloride (98-107) mmol/L Carbon Dioxide (22-30) mmol/L Glucose (74-99) mg/dL POC Glucose (mg/dL) 122 H 133 H (75-99) mg/dL Calcium (8.4-10.2) mg/dL AST (14-36) U/L ALT (4-34) U/L Alkaline Phosphatase (38-126) U/L Lactate Dehydrogenase (313-618) U/L Total Protein (6.3-8.2) g/dL Total Protein (PEP) (6.2-8.2) g/dL Albumin (3.5-5.0) g/dL IgG (700.0-1600.0) mg/dL Free Strong LC, Quant (0.33-1.94) mg/dL Free Lambda LC, Quant (0.57-2.63) mg/dL 11/19/21 Range/Units 12:10 RBC (3.80-5.40) m/uL Hgb (11.4-16.0) gm/dL Hct (34.0-46.0) % MCV (80.0-100.0) fL MCHC (31.0-37.0) g/dL ESR (0-20) mm/hr Chloride (98-107) mmol/L Carbon Dioxide (22-30) mmol/L Glucose (74-99) mg/dL POC Glucose (mg/dL) 138 H (75-99) mg/dL Calcium (8.4-10.2) mg/dL AST (14-36) U/L ALT (4-34) U/L Alkaline Phosphatase (38-126) U/L Lactate Dehydrogenase (313-618) U/L Total Protein (6.3-8.2) g/dL Total Protein (PEP) (6.2-8.2) g/dL Albumin (3.5-5.0) g/dL IgG (700.0-1600.0) mg/dL Free Strong LC, Quant (0.33-1.94) mg/dL Free Lambda LC, Quant (0.57-2.63) mg/dL
[2021-11-19 16:29] LABS: Glucose,Whole Blood 149 mg/dL (75-99)
--- NOTE | 2021-11-19 18:39 | P.PN ---
Subjective Progress Note Date: 11/19/21 CHIEF COMPLAINT: Abdominal pain HISTORY OF PRESENT ILLNESS: The patient is a 66 year old female presents with generalized abdominal pain. Since admission, she is tolerating diet. Pain is controlled. She is resting comfortably. REVIEW OF ORGAN SYSTEMS: No fevers or chills. No current chest pain. Denies shortness of breath. PHYSICAL EXAM: VITALS: Reviewed CONSTITUTIONAL: Well developed and in no acute distress. EYES: Conjuctivae without sclera icterus. Extraocular movements grossly intac t. HEAD, EARS, NOSE, THROAT: Moist buccal mucosa. Head is atraumatic, normocephalic. Hears conversational speech. No nasal drainage. Wears glasses. RESPIRATORY: Non-labored respirations and equal bilateral excursions. No gross wheezes. CARDIOVASCULAR: Palpable 2+ radial pulses. ABDOMEN: No peritonitis. MUSCULOSKELETAL: No clubbing cyanosis or edema. SKIN: Warm and well perfused with good skin turgor. NEUROLOGIC: Cranial nerves II through XII grossly intact. No focal or lateralizing signs. PSYCH: Lethargic. CLINCAL LABS: Reviewed. Hemoglobin 9.9. White blood cell count normal. ASSESSMENT: 1. Abdominal pain, generalized 2. Post-surgical seroma of abdominal wall 3. Hypokalemia 4. Chronic renal insufficiency 5. Elevated troponin 6. History of incisional hernia repair PLAN: 1. Diet as tolerated. 2. No acute surgical intervention Objective - Vital Signs Vital signs: Vital Signs Temp 98.2 F 11/19/21 17:11 Pulse 69 11/19/21 17:11 Resp 18 11/19/21 17:11 BP 158/77 11/19/21 17:11 Pulse Ox 93 L 11/19/21 17:11 FiO2 21 11/13/21 07:34 Intake & Output 11/18/21 11/19/21 11/19/21 18:59 06:59 18:59 Intake Total 0 1840 Output Total 0 Balance 0 1840 0 Weight 87 kg Intake: Intake, IV Titration 1000 Amount Sodium Chloride 0.9% 1, 1000 000 ml @ 100 mls/hr IV . Q10H [facility] Rx#:[id number] Oral 0 840 Output: Urine 0 Other: Voiding Method Toilet Toilet Diaper Diaper # Voids 2 4 # Bowel Movements 2 4 - Labs CBC & Chem 7: 11/19/21 08:44 11/18/21 13:22 Labs: Abnormal Lab Results - Last 24 Hours (Table) 11/18/21 11/18/21 11/18/21 Range/Units 13:22 13:22 20:38 RBC (3.80-5.40) m/uL Hgb (11.4-16.0) gm/dL Hct (34.0-46.0) % MCV (80.0-100.0) fL MCHC (31.0-37.0) g/dL POC Glucose (mg/dL) 178 H (75-99) mg/dL Total Protein (PEP) 5.2 L (6.2-8.2) g/dL IgG 599.0 L (700.0-1600.0) mg/dL Free [place] LC, Quant 3.36 H (0.33-1.94) mg/dL Free Lambda LC, Quant 4.07 H (0.57-2.63) mg/dL 11/19/21 11/19/21 11/19/21 Range/Units 02:02 05:37 08:44 RBC 3.26 L (3.80-5.40) m/uL Hgb 9.9 L (11.4-16.0) gm/dL Hct 32.7 L (34.0-46.0) % MCV 100.5 H (80.0-100.0) fL MCHC 30.1 L (31.0-37.0) g/dL POC Glucose (mg/dL) 122 H 133 H (75-99) mg/dL Total Protein (PEP) (6.2-8.2) g/dL IgG (700.0-1600.0) mg/dL [place] LC, Quant (0.33-1.94) mg/dL Free Lambda LC, Quant (0.57-2.63) mg/dL 11/19/21 11/19/21 Range/Units 12:10 16:27 RBC (3.80-5.40) m/uL Hgb (11.4-16.0) gm/dL Hct (34.0-46.0) % MCV (80.0-100.0) fL MCHC (31.0-37.0) g/dL POC Glucose (mg/dL) 138 H 149 H (75-99) mg/dL Total Protein (PEP) (6.2-8.2) g/dL IgG (700.0-1600.0) mg/dL Free [place] LC, Quant (0.33-1.94) mg/dL Free Lambda LC, Quant (0.57-2.63) mg/dL
[2021-11-19 21:02] LABS: Glucose,Whole Blood 120 mg/dL (75-99)
[2021-11-19] MEDS: LORATADINE 10 MG TAB PO SCH (22:03)
[2021-11-19] MEDS: traZODone HCL 100 MG TAB PO SCH (22:03)
[2021-11-19] MEDS: TOPIRAMATE 25 MG TAB PO SCH (22:03)
--- NOTE | 2021-11-19 22:46 | P.PN ---
Subjective Progress Note Date: 11/19/21 Principal diagnosis: Fever Patient is a 66-year-old female presented to the hospital with abdominal pain in this patient did have a fever on admission to the hospital CT abdominal pelvis done without any contrast did not show any acute abnormality. On today's evaluation that is 11/19/2021, the patient remains to be afebrile, patient abdominal pain has improved however has been complaining of some diarrhea no vomiting, no chest pain shortness of breath or cough Objective - Vital Signs Vital signs: Vital Signs Temp 98.2 F 11/19/21 17:11 Pulse 69 11/19/21 17:11 Resp 18 11/19/21 17:11 BP 158/77 11/19/21 17:11 Pulse Ox 93 L 11/19/21 17:11 FiO2 21 11/13/21 07:34 Intake & Output 11/19/21 11/19/21 11/20/21 06:59 18:59 06:59 Intake Total 1840 Output Total 0 Balance 1840 0 Intake: Intake, IV Titration 1000 Amount Sodium Chloride 0.9% 1, 1000 000 ml @ 100 mls/hr IV . Q10H [facility] Rx#:[id number] Oral 840 Output: Urine 0 Other: Voiding Method Toilet Toilet Diaper Diaper # Voids 2 4 # Bowel Movements 2 4 - Exam GENERAL DESCRIPTION: An elderly female lying in bed in no distress RESPIRATORY SYSTEM: Unlabored breathing , decreased breath sounds at bases HEART: S1 S2 regular rate and rhythm , ABDOMEN: Soft , no tenderness EXTREMITIES: No edema feet - Labs CBC & Chem 7: 11/19/21 08:44 11/18/21 13:22 Labs: Abnormal Lab Results - Last 24 Hours (Table) 11/18/21 11/18/21 11/18/21 Range/Units 13:22 13:22 20:38 RBC (3.80-5.40) m/uL Hgb (11.4-16.0) gm/dL Hct (34.0-46.0) % MCV (80.0-100.0) fL MCHC (31.0-37.0) g/dL POC Glucose (mg/dL) 178 H (75-99) mg/dL IgG 599.0 L (700.0-1600.0) mg/dL Free [place] LC, Quant 3.36 H (0.33-1.94) mg/dL Free Lambda LC, Quant 4.07 H (0.57-2.63) mg/dL 11/19/21 11/19/21 11/19/21 Range/Units 02:02 05:37 08:44 RBC 3.26 L (3.80-5.40) m/uL Hgb 9.9 L (11.4-16.0) gm/dL Hct 32.7 L (34.0-46.0) % MCV 100.5 H (80.0-100.0) fL MCHC 30.1 L (31.0-37.0) g/dL POC Glucose (mg/dL) 122 H 133 H (75-99) mg/dL IgG (700.0-1600.0) mg/dL Free [place] LC, Quant (0.33-1.94) mg/dL Free Lambda LC, Quant (0.57-2.63) mg/dL 11/19/21 11/19/21 Range/Units 12:10 16:27 RBC (3.80-5.40) m/uL Hgb (11.4-16.0) gm/dL Hct (34.0-46.0) % MCV (80.0-100.0) fL MCHC (31.0-37.0) g/dL POC Glucose (mg/dL) 138 H 149 H (75-99) mg/dL IgG (700.0-1600.0) mg/dL Free [place] LC, Quant (0.33-1.94) mg/dL Free Lambda LC, Quant (0.57-2.63) mg/dL Assessment and Plan (1) Fever Current Visit: Yes Status: Acute Code(s): R50.9 - FEVER, UNSPECIFIED SNOMED Code(s): 217935216 Plan: 1patient presented hospital with with abdominal pain in this patient has been running a fever for the last 3 days patient did have CT abdominal pelvis which was done without any contrast, was negative urine was negative patient did not have any elevated white count concern for possible viral syndrome as elevated levels are elevated. 2 influenza and COVID nasopharyngeal swab came back negative. CMV serology was negative EBV IgM was negative IgG was positive, patient did have a repeat CT of abdominal pelvis with oral contrast did not show any acute abnormality 3patient fever has resolved and culture have been negative, white count is normal, continue with Augmentin 4-diarrhea will add Questran for symptomatic relief if diarrhea persists we'll check a stool for C. diff and treat if positive Time with Patient: Less than 30
[2021-11-20] MEDS: SODIUM CHLORIDE 0.9% 1,000 ML IV SCH ×3 (00:23→21:52)
[2021-11-20 02:24] LABS: Glucose,Whole Blood 116 mg/dL (75-99)
[2021-11-20 06:06] LABS: Glucose,Whole Blood 111 mg/dL (75-99)
[2021-11-20] MEDS: INSULIN ASPART (NovoLOG) 100 UNIT/ML VIAL SQ SCH ×4 (06:10→21:55)
[2021-11-20 07:07] LABS: Glucose,Whole Blood 109 mg/dL (75-99)
[2021-11-20 08:08] LABS: Basophils % (A) 0 %; Eosinophils # (A) 0.2 k/uL (0-0.7); Eosinophils % (A) 3 %; HCT 33.6 % (34.0-46.0); HGB 10.1 gm/dL (11.4-16.0); Hypochromasia Marked; Lymphocytes # (A) 1.2 k/uL (1.0-4.8); Lymphocytes % (A) 20 %; MCH 30.8 pg (25.0-35.0); MCV 102.8 fL (80.0-100.0); Macrocytosis Slight; Monocytes # (A) 0.2 k/uL (0-1.0); Monocytes % (A) 4 %; Neutrophils # (A) 4.4 k/uL (1.3-7.7); Neutrophils % (A) 72 %; Platelet Count 382 k/uL (150-450); RBC 3.26 m/uL (3.80-5.40); RDW 14.3 % (11.5-15.5); WBC 6.2 k/uL (3.8-10.6)
[2021-11-20] MEDS: ASCORBIC ACID 500 MG TAB PO SCH ×2 (08:13→21:55)
[2021-11-20] MEDS: PANTOPRAZOLE 40 MG TABLET PO SCH (08:13)
[2021-11-20] MEDS: ASPIRIN 81 MG PO SCH (08:13)
[2021-11-20] MEDS: METOPROLOL TARTRATE 50 MG TAB PO SCH ×2 (08:13→21:55)
[2021-11-20] MEDS: GABAPENTIN 100 MG CAP PO SCH ×2 (08:13→21:55)
[2021-11-20] MEDS: ATORVASTATIN 40 MG TAB PO SCH (08:13)
[2021-11-20] MEDS: ZINC SULFATE 220 MG CAP PO SCH (08:13)
[2021-11-20] MEDS: traMADol 50 MG TAB PO PRN ×2 (08:13→17:32)
[2021-11-20] MEDS: CHOLECALCIFEROL 25 MCG (1000 IU) TABLET PO SCH (08:13)
[2021-11-20] MEDS: SUCRALFATE 1 GM TAB PO SCH ×4 (08:14→21:56)
[2021-11-20] MEDS: CLOTRIMAZOLE 1% CREAM 30 GM TUBE TOPICAL SCH ×2 (08:14→21:56)
[2021-11-20] MEDS: HEPARIN SODIUM,PORCINE/PF 5,000 UNIT/0.5 ML SYRINGE SQ SCH ×2 (08:15→21:55)
[2021-11-20 08:22] LABS: C Reactive Protein 4.5 mg/dL (<1.0); Calcium 8.4 mg/dL (8.4-10.2); Potassium 3.7 mmol/L (3.5-5.1)
[2021-11-20 11:09] LABS: Glucose,Whole Blood 162 mg/dL (75-99)
[2021-11-20] MEDS: CHOLESTYRAMINE (WITH SUGAR) 4 GM PACKET PO SCH ×2 (13:40→17:32)
[2021-11-20] MEDS: AMOXIC-POT CLAV 875-125MG 1 EACH TAB PO SCH ×2 (13:40→21:58)
--- NOTE | 2021-11-20 14:01 | P.PN ---
Subjective Progress Note Date: 11/20/21 This is a 66-year-old female with past medical history of recent incarcerated incisional hernia repair with mesh and lysis of adhesions on 07/08/2021, readmitted with recurrent abdominal pain .Returned to the ER on 11/10 with similar presentation as on prior visits, reporting " mid epigastric pain radiating across bilateral total quadrants, worse on the right side". KUB reportedly nonacute abdomen, no evidence of constipation no adverse change, clearing of dilated gas-filled small bowel in the mid abdomen compared to old exam, clearing of increased density over the abdomen suggestive of ascites hiral dent on the old exam .CT of abdomen and pelvis with contrast reported postsurgical change along the anterior abdominal wall with prior mesh repair, subcutaneous air seen on 07/28/2021 resolved though a platelike fluid collection remains measuring 9.5 x 6.1 cm and 1.1 cm plaque along the superficial fascia, chronic seroma versus abscess are possibilities. previous partial right hemothorax colectomy but with new right mid abdominal mesenteric nodularity measuring up to 1.1 cm, recurrent disease with new metastatic nodes are not excluded at this time versus reactive , prominent fluid within the lower abdominal small bowel loops and some liquid stool in the transverse colon- correlate for enteritis,s/p rosibel fundoplication but with recurrent tiny hiatal hernia.Mild circumferentail wall thickening distal esophagus possibly esophigitis. Returned to the ER on 11/12 , admitted with ongoing abdominal pain accompanied by nausea with no emesis and fevers. Reports most recent bowel movement yesterday. Denies bleeding or dark stools. T-max 101.1, normal WBC. Creatinine 1.14 Patient complaining of right hip pain, right hip x-ray reviewed completed reporting no fracture or dislocation, no abnormality evident. 11/15/2021 reports abdominal pain continues, unchanged. States pain worse in the "bilateral upper quadrants wrapping around". On previous occasions patient described abdominal pain is a twisting sensation, which currently does not exist at this time. Reports pain is not worsened by moving or eating.Denies nausea, vomiting. Positive diarrhea, negative for C. difficile colitis. T-max 100.6,Continues on IV antibiotics of Zosyn. Coronal virus, influenza type a and type B not detected. Urine legionella AG negative. CMV/EBV pending. CRP increased from 16.2-29.5, sed rate elevated, 104. Oncology consult in place, recommendations pending. 11/16/2021 Sitting up in chair reporting ongoing abdominal pain, teary-eyed. Feels hungry but unable to eat. Blood sugars controlled. Positive bowel movement today ,more formed. Positive sweats and chills. Positive headache, reports nasal brown mucousy drainage. Hemoglobin 10.3, platelets 282. Iron 10, TIBC 241,% saturation 3.99, transferrin 172, ferritin 252, Vit. B12> 2000. Renal function continues improving, creatinine down to 1.09. T-max 100.2, normal WBC. Maintained on Zosyn. Evaluated by oncology with recommendations noted and appreciated. 11/17/2021 This is a pleasant 66-year-old female was recently admitted with abdominal pain and possible hernia repair with general surgery following. Patient continues with diarrhea and C. diff testing was negative and continues with abdominal pain and normally takes Carafate 4 times daily and will resume this med and encourage increased activity with possible discharge tomorrow. Patient denies chest pain or shortness of breath. Patient is afebrile. Patient follows with Dr. Lewis in the outpatient setting. 11/18/2021 Patient is seen this am and continues to report abdominal pain in the mid epigastric region and reports to not having much of an appetite. General surgery following with no plans for surgical intervention at this time. Oncology also following and will follow in the outpatient setting with repeat ct in 2-3 months. Patient resumed on carafate and reports to some improvement in abdomen as compared to yesterday. Encouraged small frequent meals and also encouraged increased activity as tolerated. Patient is afebrile. Patient denies chest pain or shortness of breath. 11/19/2021 Patient is continuing to slowly improve in regards to abdominal pain, but continues with diarrhea and also not eating very well. Per nursing staff patient is only eating tomato soup. No reports of nausea or vomiting noted but oral intake is poor. Encouraged oral intake. Oncology also following and electrophoresis work up in progress. Patient is continued on oral augmentin with ID following and will have one week course on discharge. Patient is afebrile and denies shortness of breath. 11/20/2021 Patient continues to have poor appetite and had some nausea and headache today. Patient is having continued diarrhea and is on questran and patient refused today secondary to nausea. Patient eating very little. Patient is afebrile and denies chest pain or shortness of breath. Encouraged oral intake. Continue oral antibiotic. Encouraged increased activity as tolerated. Review of systems: Constitutional: No reports of fatigue, fever, or chills Cardiovascular: No reports of chest pain or palpitations Respiratory: No reports of shortness of breath or cough GI: reports of nausea, no vomiting, and reports continued abdominal pain although somewhat improved from yesterday and no real appetite. : No reports of dysuria or retention Neurovascular: reports of generalized weakness All medications have been reviewed Active Medications Acetaminophen (Acetaminophen Tab 325 Mg Tab) 650 mg PO Q6HR PRN PRN Reason: Mild Pain or Fever > 100.5 Last Admin: 11/18/21 14:12 Dose: 650 mg Amoxicillin/Clavulanate Potassium (Amoxic-Pot Clav 875-125mg 1 Each Tab) 1 each PO Q12HR [facility]; Protocol Last Admin: 11/20/21 13:40 Dose: Not Given Ascorbic Acid (Ascorbic Acid 500 Mg Tab) 500 mg PO BID [facility] Last Admin: 11/20/21 08:13 Dose: 500 mg Aspirin (Aspirin 81 Mg) 81 mg PO DAILY [facility] Last Admin: 11/20/21 08:13 Dose: 81 mg Atorvastatin Calcium (Atorvastatin 40 Mg Tab) 40 mg PO DAILY [facility] Last Admin: 11/20/21 08:13 Dose: 40 mg Cholecalciferol (Cholecalciferol 25 Mcg (1000 Iu) Tablet) 100 mcg PO DAILY [facility] Last Admin: 11/20/21 08:13 Dose: 100 mcg Cholestyramine Resin (Cholestyramine (With Sugar) 4 Gm Packet) 4 gm PO BID@1000,1800 [facility] Last Admin: 11/20/21 13:40 Dose: Not Given Clotrimazole (Clotrimazole 1% Cream 30 Gm Tube) 1 applic TOPICAL BID [facility]; Protocol Last Admin: 11/20/21 08:14 Dose: 1 applic Gabapentin (Gabapentin 100 Mg Cap) 100 mg PO BID [facility] Last Admin: 11/20/21 08:13 Dose: 100 mg Heparin Sodium (Porcine) (Heparin Sodium,Porcine/Pf 5,000 Unit/0.5 Ml Syringe) 5,000 unit SQ Q12HR [facility] Last Admin: 11/20/21 08:15 Dose: 5,000 unit Hydromorphone HCl (Hydromorphone 1 Mg/Ml 1 Ml Syringe) 1 mg IVP Q3HR PRN PRN Reason: Severe Pain Last Admin: 11/18/21 17:52 Dose: 1 mg Sodium Chloride (Saline 0.9%) 1,000 mls @ 100 mls/hr IV .Q10H [facility] Last Admin: 11/20/21 08:28 Dose: Not Given Insulin Aspart (Insulin Aspart (Novolog) 100 Unit/Ml Vial) 0 unit SQ [facility]; Protocol Last Admin: 11/20/21 12:40 Dose: Not Given Loratadine (Loratadine 10 Mg Tab) 5 mg PO [facility] Last Admin: 11/19/21 22:03 Dose: 5 mg Metoprolol Tartrate (Metoprolol Tartrate 50 Mg Tab) 50 mg PO BID [facility] Last Admin: 11/20/21 08:13 Dose: 50 mg Miscellaneous Information (Potassium Replacement Protocol 1 Each Misc) 1 each MISCELLANE DAILY PRN; Protocol PRN Reason: Per Protocol Naloxone HCl (Naloxone 0.4 Mg/Ml 1 Ml Vial) 0.2 mg IV Q2M PRN PRN Reason: Opioid Reversal Ondansetron HCl (Ondansetron 4 Mg/2 Ml Vial) 4 mg IVP Q6H PRN PRN Reason: Nausea And Vomiting Last Admin: 11/18/21 17:20 Dose: 4 mg Pantoprazole Sodium (Pantoprazole 40 Mg Tablet) 40 mg PO [facility] Last Admin: 11/20/21 08:13 Dose: 40 mg Sucralfate (Sucralfate 1 Gm Tab) 1 gm PO QID [facility] Last Admin: 11/20/21 13:40 Dose: Not Given Topiramate (Topiramate 25 Mg Tab) 50 mg PO [facility] Last Admin: 11/19/21 22:03 Dose: 50 mg Tramadol HCl (Tramadol 50 Mg Tab) 50 mg PO QID PRN PRN Reason: Pain/Discomfort Last Admin: 11/20/21 08:13 Dose: 50 mg Trazodone HCl (Trazodone Hcl 100 Mg Tab) 100 mg PO [facility] Last Admin: 11/19/21 22:03 Dose: 100 mg Zinc Sulfate (Zinc Sulfate 220 Mg Cap) 220 mg PO DAILY [facility] Last Admin: 11/20/21 08:13 Dose: 220 mg PHYSICAL EXAMINATION: GENERAL: The patient is alert and oriented x4, Well developed, well nourished. HEENT: Pupils are round and equally reacting to light. EOMI. no scleral icterus. No conjunctival pallor. Normocephalic, atraumatic. No pharyngeal erythema. No thyromegaly. CARDIOVASCULAR: S1 and S2 muffled PULMONARY: diminished breath sounds bilaterally with no wheezing or rhonchi noted. ABDOMEN: soft. less tender on exam of upper quadrants. obese. non-distended, normoactive bowel sounds. No palpable organomegaly. MUSCULOSKELETAL: No joint swelling or deformity. EXTREMITIES: No cyanosis, clubbing, or pedal edema. NEUROLOGICAL: Gross neurological examination did not reveal any focal deficits. Diffuse weakness SKIN: No rashes. Assessment: Recurrent Abdominal pain with nausea and fevers in a patient with recent incar cerated incisional hernia repair with mesh and lysis of adhesions, 07/08/2021, multiple readmissions. Possible postop seroma, possible abscess, new metastatic or reactive nodes, recurrent tiny hiatal hernia and possible mild enteritis reported per CT. Mildly elevated LFTs, etiology unclear Elevated troponin, no ACS as per cardiology, suspect related to renal failure. Acute on chronic renal failure, stage III Gastroesophageal reflux disease Post op Anemia history of migraines CAD PVD Hypertension Diabetes Melllitus Recent Acute Covid infection Memory impairment, history of Obesity, BMI 38.7 Diarrhea and constipation, possible chronic IBS, advised previously to follow-up outpatient with Dr. Ashlie Reeves, GI. GI prophylaxis DVT prophylaxis Full code Plan: Recommend to continue with current medications and management. Patient resumed on Carafate 4 times daily and continues to have abdominal pain and reporting nausea. C. diff testing was negative and will monitor and encouraged increased activity in oral intake. ID following and oncology and will continue abx for now and will continue oral augmentin for one week on discharge per ID. Poor oral intake. General surgery following with no plans for surgical intervention at this time. Follow up abd ct per oncology in 2-3 months and electrophoresis work up in progress per hematology. Due to multiple complex medical issues, prognosis is guarded. The impression and plan of care has been dictated by Kaitlyn Akhtar, nurse practitioner as directed. Dr. Alda MD I have performed a history and examination and MDM of this patient, discussed the same with the dictator, and agree with the dictator's assessment and plan as written ,documented as a scribe. Based on total visit time, I have performed more than 50% of the visit. Any additional findings or plans will be noted. Objective - Vital Signs Vital signs: Vital Signs Temp 97.6 F 11/20/21 08:00 Pulse 68 11/20/21 08:00 Resp 16 11/20/21 04:00 BP 173/81 11/20/21 08:00 Pulse Ox 96 11/20/21 08:00 FiO2 21 11/13/21 07:34 Intake & Output 11/19/21 11/20/21 11/20/21 18:59 06:59 18:59 Intake Total 240 Output Total 0 Balance 0 240 Intake: Oral 240 Output: Urine 0 Other: Voiding Method Toilet Toilet Diaper Diaper # Voids 4 3 2 # Bowel Movements 4 2 - Labs CBC & Chem 7: 11/20/21 07:49 11/20/21 07:49 Labs: Abnormal Lab Results - Last 24 Hours (Table) 11/19/21 11/19/21 11/19/21 Range/Units 12:10 16:27 21:01 RBC (3.80-5.40) m/uL Hgb (11.4-16.0) gm/dL Hct (34.0-46.0) % MCV (80.0-100.0) fL MCHC (31.0-37.0) g/dL Chloride (98-107) mmol/L Carbon Dioxide (22-30) mmol/L BUN (7-17) mg/dL Glucose (74-99) mg/dL POC Glucose (mg/dL) 138 H 149 H 120 H (75-99) mg/dL C-Reactive Protein (<1.0) mg/dL 11/20/21 11/20/21 11/20/21 Range/Units 02:03 05:42 07:05 RBC (3.80-5.40) m/uL Hgb (11.4-16.0) gm/dL Hct (34.0-46.0) % MCV (80.0-100.0) fL MCHC (31.0-37.0) g/dL Chloride (98-107) mmol/L Carbon Dioxide (22-30) mmol/L BUN (7-17) mg/dL Glucose (74-99) mg/dL POC Glucose (mg/dL) 116 H 111 H 109 H (75-99) mg/dL C-Reactive Protein (<1.0) mg/dL 11/20/21 11/20/21 11/20/21 Range/Units 07:49 07:49 11:08 RBC 3.26 L (3.80-5.40) m/uL Hgb 10.1 L (11.4-16.0) gm/dL Hct 33.6 L (34.0-46.0) % MCV 102.8 H (80.0-100.0) fL MCHC 30.0 L (31.0-37.0) g/dL Chloride 112 H (98-107) mmol/L Carbon Dioxide 20 L (22-30) mmol/L BUN 5 L (7-17) mg/dL Glucose 116 H (74-99) mg/dL POC Glucose (mg/dL) 162 H (75-99) mg/dL C-Reactive Protein 4.5 H (<1.0) mg/dL
[2021-11-20 16:25] LABS: Glucose,Whole Blood 138 mg/dL (75-99)
--- NOTE | 2021-11-20 17:48 | P.PN ---
Subjective Progress Note Date: 11/20/21 CHIEF COMPLAINT: Abdominal pain HISTORY OF PRESENT ILLNESS: The patient is a 66 year old female presents with generalized abdominal pain. No reports of increased abdominal pain. She is tolerating diet. No fevers or chills. REVIEW OF ORGAN SYSTEMS: No fevers or chills. No current chest pain. Denies shortness of breath. PHYSICAL EXAM: VITALS: Reviewed CONSTITUTIONAL: Well developed and in no acute distress. EYES: Conjuctivae without sclera icterus. Extraocular movements grossly intact. HEAD, EARS, NOSE, THROAT: Moist buccal mucosa. Head is atraumatic, normocephalic. Hears conversational speech. No nasal drainage. Wears glasses. RESPIRATORY: Non-labored respirations and equal bilateral excursions. No gross wheezes. CARDIOVASCULAR: Palpable 2+ radial pulses. ABDOMEN: No peritonitis. MUSCULOSKELETAL: No clubbing cyanosis or edema. SKIN: Warm and well perfused with good skin turgor. NEUROLOGIC: Cranial nerves II through XII grossly intact. No focal or lateralizing signs. PSYCH: Lethargic. CLINCAL LABS: Reviewed. Hemoglobin 10.1. White blood cell count at 6.2. ASSESSMENT: 1. Abdominal pain, generalized 2. Post-surgical seroma of abdominal wall 3. Hypokalemia 4. Chronic renal insufficiency 5. Elevated troponin 6. History of incisional hernia repair PLAN: 1. Diet as tolerated. 2. No acute surgical intervention Objective - Vital Signs Vital signs: Vital Signs Temp 98.5 F 11/20/21 14:08 Pulse 71 11/20/21 14:08 Resp 16 11/20/21 04:00 BP 143/77 11/20/21 14:08 Pulse Ox 95 11/20/21 14:08 FiO2 21 11/13/21 07:34 Intake & Output 11/19/21 11/20/21 11/20/21 18:59 06:59 18:59 Intake Total 240 Output Total 0 Balance 0 240 Intake: Oral 240 Output: Urine 0 Other: Voiding Method Toilet Toilet Toilet Diaper Diaper Diaper # Voids 4 3 1 # Bowel Movements 4 2 - Labs CBC & Chem 7: 11/20/21 07:49 11/20/21 07:49 Labs: Abnormal Lab Results - Last 24 Hours (Table) 11/19/21 11/20/21 11/20/21 Range/Units 21:01 02:03 05:42 RBC (3.80-5.40) m/uL Hgb (11.4-16.0) gm/dL Hct (34.0-46.0) % MCV (80.0-100.0) fL MCHC (31.0-37.0) g/dL Chloride (98-107) mmol/L Carbon Dioxide (22-30) mmol/L BUN (7-17) mg/dL Glucose (74-99) mg/dL POC Glucose (mg/dL) 120 H 116 H 111 H (75-99) mg/dL C-Reactive Protein (<1.0) mg/dL 11/20/21 11/20/21 11/20/21 Range/Units 07:05 07:49 07:49 RBC 3.26 L (3.80-5.40) m/uL Hgb 10.1 L (11.4-16.0) gm/dL Hct 33.6 L (34.0-46.0) % MCV 102.8 H (80.0-100.0) fL MCHC 30.0 L (31.0-37.0) g/dL Chloride 112 H (98-107) mmol/L Carbon Dioxide 20 L (22-30) mmol/L BUN 5 L (7-17) mg/dL Glucose 116 H (74-99) mg/dL POC Glucose (mg/dL) 109 H (75-99) mg/dL C-Reactive Protein 4.5 H (<1.0) mg/dL 11/20/21 11/20/21 Range/Units 11:08 16:24 RBC (3.80-5.40) m/uL Hgb (11.4-16.0) gm/dL Hct (34.0-46.0) % MCV (80.0-100.0) fL MCHC (31.0-37.0) g/dL Chloride (98-107) mmol/L Carbon Dioxide (22-30) mmol/L BUN (7-17) mg/dL Glucose (74-99) mg/dL POC Glucose (mg/dL) 162 H 138 H (75-99) mg/dL C-Reactive Protein (<1.0) mg/dL
[2021-11-20 21:30] LABS: Glucose,Whole Blood 156 mg/dL (75-99)
[2021-11-20] MEDS: LORATADINE 10 MG TAB PO SCH (21:55)
[2021-11-20] MEDS: traZODone HCL 100 MG TAB PO SCH (21:55)
[2021-11-20] MEDS: TOPIRAMATE 25 MG TAB PO SCH (22:36)
[2021-11-21 04:05] LABS: Glucose,Whole Blood 121 mg/dL (75-99)
[2021-11-21] MEDS: SODIUM CHLORIDE 0.9% 1,000 ML IV SCH ×2 (05:44→17:27)
[2021-11-21 06:26] LABS: Glucose,Whole Blood 106 mg/dL (75-99)
[2021-11-21] MEDS: INSULIN ASPART (NovoLOG) 100 UNIT/ML VIAL SQ SCH ×3 (07:05→17:28)
[2021-11-21 07:30] VITALS: RESP 17; TEMP 98
[2021-11-21] MEDS: CHOLECALCIFEROL 25 MCG (1000 IU) TABLET PO SCH (08:12)
[2021-11-21] MEDS: AMOXIC-POT CLAV 875-125MG 1 EACH TAB PO SCH (08:12)
[2021-11-21] MEDS: GABAPENTIN 100 MG CAP PO SCH (08:12)
[2021-11-21] MEDS: PANTOPRAZOLE 40 MG TABLET PO SCH (08:12)
[2021-11-21] MEDS: ZINC SULFATE 220 MG CAP PO SCH (08:12)
[2021-11-21] MEDS: ATORVASTATIN 40 MG TAB PO SCH (08:13)
[2021-11-21] MEDS: METOPROLOL TARTRATE 50 MG TAB PO SCH (08:13)
[2021-11-21] MEDS: ASPIRIN 81 MG PO SCH (08:13)
[2021-11-21] MEDS: HEPARIN SODIUM,PORCINE/PF 5,000 UNIT/0.5 ML SYRINGE SQ SCH (08:13)
[2021-11-21] MEDS: ASCORBIC ACID 500 MG TAB PO SCH (08:13)
[2021-11-21] MEDS: SUCRALFATE 1 GM TAB PO SCH (08:13)
[2021-11-21] MEDS: CHOLESTYRAMINE (WITH SUGAR) 4 GM PACKET PO SCH (08:13)
[2021-11-21] MEDS: CLOTRIMAZOLE 1% CREAM 30 GM TUBE TOPICAL SCH (08:20)
[2021-11-21] MEDS: CARAFATE 1 GM/10 ML PO SCH ×2 (08:33→17:27)
[2021-11-21 11:23] LABS: Glucose,Whole Blood 129 mg/dL (75-99)
[2021-11-21 14:32] VITALS: BP 126/72; PULSE 69
[2021-11-22 13:16] LABS: Albumin 2.43 g/dL (3.80-4.90); Gamma Globulin 0.55 g/dL (0.70-1.50)
--- NOTE | 2021-11-23 09:15 | P.DS ---
Providers Date of admission: 11/12/21 04:09 Expected date of discharge: 11/21/21 Attending physician: Dmitry Lewis MD Consults: 11/12/21 03:51 Consult Physician Urgent Consulting Provider: Kaia Acosta Consult Reason/Comments: Elevated troponin Do you want consulting provider notified?: Yes, Notify in am Consult Physician Urgent Consulting Provider: Reji Rangel Consult Reason/Comments: Abdominal painseroma versus early abscess Do you want consulting provider notified?: Yes, Notify in am 11/14/21 14:28 Consult Physician Routine Consulting Provider: Deb Subramanian Consult Reason/Comments: persistent fevers, recurrent abdominal pain, poss abscess per ct Do you want consulting provider notified?: Yes 11/14/21 14:35 Consult Physician Routine Consulting Provider: Rex Slaughter Consult Reason/Comments: Current abdominal pain, CT suggestive of possible new metastatic nodes Do you want consulting provider notified?: Yes Primary care physician: Dmitry Lewis MD Hospital Course: Final diagnosis Recurrent Abdominal pain with nausea and fevers in a patient with recent incarcerated incisional hernia repair with mesh and lysis of adhesions, 07/08/2021, multiple readmissions. Possible postop seroma, possible abscess, new metastatic or reactive nodes, recurrent tiny hiatal hernia and possible mild enteritis reported per CT. Mildly elevated LFTs, etiology unclear Elevated troponin, no ACS as per cardiology, suspect related to renal failure. Acute on chronic renal failure, stage III Gastroesophageal reflux disease Post op Anemia history of migraines CAD PVD Hypertension Diabetes Melllitus Recent Acute Covid infection Memory impairment, history of Obesity, BMI 38.7 Diarrhea and constipation, possible chronic IBS, advised previously to follow-up outpatient with Dr. Ashlie Reeves GI. GI prophylaxis DVT prophylaxis Full code Discharge disposition Patient is being discharged in a stable condition with guarded prognosis to home. Patient will follow-up with Dr. Lewis in the outpatient setting upon discharge. Patient is to follow-up with general surgery and also GI as scheduled. Total time taken is greater than 35 minutes. Hospital course This is a 66-year-old female who was recently admitted with mild epigastric pain and abdominal pain with an extensive past medical history of multiple hernia repairs and patient was evaluated by general surgery recommending no surgical intervention at this time. Patient continued with significant pain and intolerance to oral intake. Patient's abdominal pain slowly improved and was continued on home medications and also continued on oral antibiotics and will continue with a short course on discharge in the form of Augmentin. Patient also will continue with Questran twice a day as needed and an obstructed the patient to hold if having constipation. Patient reports some improvement in loose stools and is able to tolerate oral intake. Encouraged oral intake and this was discussed with her at the bedside. Patient is also to follow- up with hematology/oncology for further workup. Currently no reports of chest pain, shortness of breath, or palpitations. Patient is afebrile. No reports of nausea or vomiting and patient is tolerating diet. Patient will be discharged home today. Guarded prognosis On exam vital signs are stable. Cardio S1, S2 are muffled. Respiratory system shows diminished breath sounds at the bases with no wheezing or rhonchi noted. Abdomen is soft and obese, and nontender. Nervous system shows no focal deficits. Please refer to medication reconciliation sheet for a list of medications. The impression and plan of care has been dictated by Kaitlyn Akhtar, Nurse Practitioner as directed. Dr. Keny MD I have performed a history and examination and MDM of this patient, discussed the same with the dictator, and agree with the dictator's assessment and plan as written ,documented as a scribe. Based on total visit time, I have performed more than 50% of the visit. Patient Condition at Discharge: Fair Plan - Discharge Summary Discharge Rx Participant: No New Discharge Prescriptions: New Amoxic-Pot Clav 875-125Mg [Augmentin 875-125] 1 each PO Q12HR 7 Days #14 tab Atorvastatin [Lipitor] 40 mg PO DAILY #30 tab Metoprolol Tartrate [Lopressor] 50 mg PO BID #60 tab Cholestyramine (with Sugar) [Questran Packet] 4 gm PO BID@1000,1800 30 Days #60 packet Loratadine [Claritin] 5 mg PO HS 30 Days #30 tab Continue Diclofenac Sodium Gel [Voltaren Gel] 4 gm TOPICAL QID PRN PRN Reason: Pain Omeprazole [PriLOSEC] 40 mg PO DAILY Topiramate [Topamax] 50 mg PO HS traZODone HCL [Desyrel] 100 mg PO HS Acetaminophen Tab [Tylenol] 650 mg PO Q6HR PRN tab PRN Reason: Fever and/ or MILD Pain Cholecalciferol [Vitamin D3 (25 Mcg = 1000 Iu)] 100 mcg PO DAILY tablet Gabapentin [Neurontin] 100 mg PO BID #6 cap hydrALAZINE HCL [Apresoline] 50 mg PO TID Pantoprazole Sodium [Protonix] 40 mg PO BID Sucralfate [Carafate] 1 gm PO QID Clotrimazole Cream [Lotrimin Cream] 1 applic TOPICAL BID Aspirin 81 mg PO DAILY 60 Days #60 chew Ascorbic Acid [Vitamin C] 500 mg PO BID tab Discontinued Metoprolol Succinate (ER) [Toprol XL] 25 mg PO DAILY Zinc Sulfate [Orazinc] 220 mg PO DAILY cap Discharge Medication List Aspirin 81 mg PO DAILY 60 Days #60 chew 09/20/20 [Rx] Diclofenac Sodium Gel [Voltaren Gel] 4 gm TOPICAL QID PRN 07/04/21 [History] Omeprazole [PriLOSEC] 40 mg PO DAILY 07/04/21 [History] Topiramate [Topamax] 50 mg PO HS 07/04/21 [History] traZODone HCL [Desyrel] 100 mg PO HS 07/04/21 [History] Acetaminophen Tab [Tylenol] 650 mg PO Q6HR PRN tab 07/11/21 [Rx] Ascorbic Acid [Vitamin C] 500 mg PO BID tab 07/11/21 [Rx] Cholecalciferol [Vitamin D3 (25 Mcg = 1000 Iu)] 100 mcg PO DAILY tablet 07/11/21 [Rx] Gabapentin [Neurontin] 100 mg PO BID #6 cap 07/28/21 [Rx] Clotrimazole Cream [Lotrimin Cream] 1 applic TOPICAL BID 11/12/21 [History] Pantoprazole Sodium [Protonix] 40 mg PO BID 11/12/21 [History] Sucralfate [Carafate] 1 gm PO QID 11/12/21 [History] hydrALAZINE HCL [Apresoline] 50 mg PO TID 11/12/21 [History] Amoxic-Pot Clav 875-125Mg [Augmentin 875-125] 1 each PO Q12HR 7 Days #14 tab 11/21/21 [Rx] Atorvastatin [Lipitor] 40 mg PO DAILY #30 tab 11/21/21 [Rx] Cholestyramine (with Sugar) [Questran Packet] 4 gm PO BID@1000,1800 30 Days #60 packet 11/21/21 [Rx] Loratadine [Claritin] 5 mg PO HS 30 Days #30 tab 11/21/21 [Rx] Metoprolol Tartrate [Lopressor] 50 mg PO BID #60 tab 11/21/21 [Rx] Follow up Appointment(s)/Referral(s): Rex Slaughter MD [STAFF PHYSICIAN] - 4 Weeks (Please call office Sunday to plan follow up appointment ) Dmitry Lewis MD [Primary Care Provider] - 1-2 days (Please call office Sunday to plan follow up appointment) Ashlie Reeves MD [STAFF PHYSICIAN] - 2 Weeks (Please call office Sunday to plan follow up appointment) Reji Rangel MD [STAFF PHYSICIAN] - 1 Week (Please call office Sunday to plan follow up appointment) Ambulatory/Diagnostic Orders: Basic Metabolic Panel [LAB.AMB] Time Frame: 3 Days, Location: None Selected Activity/Diet/Wound Care/Special Instructions: Activity Limited until follow-up Follow-up with primary care provider on discharge Follow-up with surgery in one week Follow-up with GI in 2 weeks Recommend repeat labs of BMP and magnesium in 2-3 days Continue antibiotics until finished Continue heart healthy low-fat diet Follow-up oncology/hematology outpatient Discharge Disposition: HOME SELF-CARE
--- NOTE | 2021-11-25 17:26 | HP ---
HISTORY AND PHYSICAL DATE OF SERVICE: 11/25/2021 CHIEF COMPLAINT: Abdominal pain. HISTORY OF PRESENT ILLNESS: This 66-year-old woman with a past medical history of multiple medical problems, including renal failure and history of GERD, being followed by Dr. Lewis in the outpatient setting, had multiple hospital admissions. Patient had recent incarcerated incisional hernia repair with lysis of adhesions. Patient subsequently had abdominal pain and was recently admitted for abdominal pain. The patient also had multiple abnormalities, including possible seroma and possible metastatic versus reactive node. The patient went home. The patient had pain in the upper abdomen radiating from back to the front and the patient was admitted for further evaluation and treatment. Surgical evaluation is in progress. There is no history of any fever, rigor or chills at this time. PAST MEDICAL HISTORY: History of GERD, history of CAD, peripheral vascular disease. HOME MEDICATIONS: Reviewed. They include trazodone. Doses and the rest of the medications are noted. ALLERGIES: MORPHINE. FAMILY HISTORY: History of DVT. SOCIAL HISTORY: Previous history of smoking. REVIEW OF SYSTEMS: Fourteen-point review of systems negative except as mentioned earlier. PHYSICAL EXAMINATION: Pulse 88, blood pressure 163/84, respirations 15. HEENT: Conjunctivae normal. NECK: No jugular venous distention. CARDIOVASCULAR: S1, S2 muffled. RESPIRATION: Breath sounds diminished at the bases. No rhonchi. No crackles. ABDOMEN: Soft. Minimal tenderness in the upper abdomen. No guarding. No rigidity. No mass palpable. Obese. Bowel sounds present. No ascites. LEGS: No edema. No swelling. NERVOUS SYSTEM: No focal deficit. SKIN: No ulcer, rash, bleeding. JOINTS: No active deforming arthropathy. LABS: CBC within normal limits. Sodium 140. Potassium 3.7. ASSESSMENT: 1. Abdominal pain for evaluation. 2. History of recurrent abdominal pain. 3. Possible mild pancreatitis. 4. History of recent incisional hernia repair with mesh and lysis of adhesions. 5. Chronic kidney disease, stage 3. 6. Gastroesophageal reflux disease. 7. History of coronary artery disease. 8. History of peripheral vascular disease. 9. Diabetes mellitus. 10.Hypertension. 11.Multiple medical issues. RECOMMENDATIONS AND DISCUSSION: In this 66-year-old woman who presented with multiple complex medical issues, we will monitor the patient closely. Symptomatic treatment will be provided with pain medications. The patient is only able to tolerate Ultram. Surgical consultation. Otherwise, continue to monitor. Lipase is mildly elevated. I will continue to monitor. See orders for details. Prognosis guarded. Further recommendations to follow. Discussed with the family at length. MMODL / IJN: [id number] /
--- NOTE | 2021-11-26 17:58 | P.PN ---
Subjective Progress Note Date: 11/20/21 Principal diagnosis: Fever Patient is a 66-year-old female presented to the hospital with abdominal pain in this patient did have a fever on admission to the hospital CT abdominal pelvis done without any contrast did not show any acute abnormality. On today's evaluation that is 11/20/2021, the patient denies any fever or chills, the patient abdominal pain has decreased in intensity, diarrhea has slowed down no vomiting, no chest pain shortness of breath or cough Objective - Vital Signs Vital signs: Vital Signs Temp 98.5 F 11/20/21 14:08 Pulse 71 11/20/21 14:08 Resp 16 11/20/21 04:00 BP 143/77 11/20/21 14:08 Pulse Ox 95 11/20/21 14:08 FiO2 21 11/13/21 07:34 Intake & Output 11/19/21 11/20/21 11/20/21 18:59 06:59 18:59 Intake Total 240 Output Total 0 Balance 0 240 Intake: Oral 240 Output: Urine 0 Other: Voiding Method Toilet Toilet Diaper Diaper # Voids 4 3 2 # Bowel Movements 4 2 - Exam GENERAL DESCRIPTION: An elderly female lying in bed in no distress RESPIRATORY SYSTEM: Unlabored breathing , decreased breath sounds at bases HEART: S1 S2 regular rate and rhythm , ABDOMEN: Soft , no tenderness EXTREMITIES: No edema feet - Labs CBC & Chem 7: 11/20/21 07:49 11/20/21 07:49 Labs: Abnormal Lab Results - Last 24 Hours (Table) 11/19/21 11/19/21 11/20/21 Range/Units 16:27 21:01 02:03 RBC (3.80-5.40) m/uL Hgb (11.4-16.0) gm/dL Hct (34.0-46.0) % MCV (80.0-100.0) fL MCHC (31.0-37.0) g/dL Chloride (98-107) mmol/L Carbon Dioxide (22-30) mmol/L BUN (7-17) mg/dL Glucose (74-99) mg/dL POC Glucose (mg/dL) 149 H 120 H 116 H (75-99) mg/dL C-Reactive Protein (<1.0) mg/dL 11/20/21 11/20/21 11/20/21 Range/Units 05:42 07:05 07:49 RBC 3.26 L (3.80-5.40) m/uL Hgb 10.1 L (11.4-16.0) gm/dL Hct 33.6 L (34.0-46.0) % MCV 102.8 H (80.0-100.0) fL MCHC 30.0 L (31.0-37.0) g/dL Chloride (98-107) mmol/L Carbon Dioxide (22-30) mmol/L BUN (7-17) mg/dL Glucose (74-99) mg/dL POC Glucose (mg/dL) 111 H 109 H (75-99) mg/dL C-Reactive Protein (<1.0) mg/dL 11/20/21 11/20/21 Range/Units 07:49 11:08 RBC (3.80-5.40) m/uL Hgb (11.4-16.0) gm/dL Hct (34.0-46.0) % MCV (80.0-100.0) fL MCHC (31.0-37.0) g/dL Chloride 112 H (98-107) mmol/L Carbon Dioxide 20 L (22-30) mmol/L BUN 5 L (7-17) mg/dL Glucose 116 H (74-99) mg/dL POC Glucose (mg/dL) 162 H (75-99) mg/dL C-Reactive Protein 4.5 H (<1.0) mg/dL Assessment and Plan (1) Fever Status: Acute Code(s): R50.9 - FEVER, UNSPECIFIED SNOMED Code(s): 606651893 Plan: 1patient presented hospital with with abdominal pain in this patient has been running a fever for the last 3 days patient did have CT abdominal pelvis which was done without any contrast, was negative urine was negative patient did not have any elevated white count concern for possible viral syndrome as elevated le vels are elevated. 2 influenza and COVID nasopharyngeal swab came back negative. CMV serology was negative EBV IgM was negative IgG was positive, patient did have a repeat CT of abdominal pelvis with oral contrast did not show any acute abnormality 3patient fever has resolved and culture have been negative, white count is normal, patient to continue with Augmentin 4-diarrhea will continue Questran for symptomatic relief i Time with Patient: Less than 30
--- NOTE | 2021-11-26 17:59 | P.PN ---
Subjective Progress Note Date: 11/21/21 Principal diagnosis: Fever Patient is a 66-year-old female presented to the hospital with abdominal pain in this patient did have a fever on admission to the hospital CT abdominal pelvis done without any contrast did not show any acute abnormality. On today's evaluation that is 11/21/2021, the patient remains to be afebrile, the patient denies abdominal pain, denies nausea vomiting and diarrhea has resolved, no chest pain shortness of breath or cough Objective - Vital Signs Vital signs: Vital Signs Temp 98.0 F 11/21/21 14:00 Pulse 69 11/21/21 14:00 Resp 17 11/21/21 14:00 BP 126/72 11/21/21 14:00 Pulse Ox 94 L 11/21/21 14:00 FiO2 21 11/13/21 07:34 Intake & Output 11/21/21 11/21/21 11/22/21 06:59 18:59 06:59 Output Total 0 Balance 0 Output: Urine 0 Other: Voiding Method Toilet Toilet Diaper Diaper # Voids 2 2 # Bowel Movements 2 # Emeses 0 - Exam GENERAL DESCRIPTION: An elderly female lying in bed in no distress RESPIRATORY SYSTEM: Unlabored breathing , decreased breath sounds at bases HEART: S1 S2 regular rate and rhythm , ABDOMEN: Soft , no tenderness EXTREMITIES: No edema feet - Labs CBC & Chem 7: 11/20/21 07:49 11/20/21 07:49 Labs: Abnormal Lab Results - Last 24 Hours (Table) 11/21/21 11/21/21 11/21/21 Range/Units 04:03 06:24 11:22 POC Glucose (mg/dL) 121 H 106 H 129 H (75-99) mg/dL Assessment and Plan (1) Fever Status: Acute Code(s): R50.9 - FEVER, UNSPECIFIED SNOMED Code(s): 302496009 Plan: 1patient presented hospital with with abdominal pain in this patient has been running a fever for the last 3 days patient did have CT abdominal pelvis which was done without any contrast, was negative urine was negative patient did not have any elevated white count concern for possible viral syndrome as elevated levels are elevated. 2 influenza and COVID nasopharyngeal swab came back negative. CMV serology was negative EBV IgM was negative IgG was positive, patient did have a repeat CT of abdominal pelvis with oral contrast did not show any acute abnormality 3patient fever has resolved and culture have been negative, white count is normal, patient to continue with Augmentin 5 more days to finish course of therapy 4-diarrhea resolved, Questran as needed Time with Patient: Less than 30
== END 2021-11-21 17:33 | disposition home or self-care (01) | DRG 920 ==
LOC: EC 18:27 → 3SCARD 11-12 04:09 → 4SSUR 11-20 06:25
PROVIDERS: ADMIT Family Medicine; ATTEND Family Medicine
DX: K91.873 Postprocedural seroma of a digestive system organ or structure following other procedure (principal); Q21.1 Atrial septal defect; N17.9 Acute kidney failure, unspecified; K44.9 Diaphragmatic hernia without obstruction or gangrene; I25.10 Atherosclerotic heart disease of native coronary artery without angina pectoris; R19.7 Diarrhea, unspecified; E11.22 Type 2 diabetes mellitus with diabetic chronic kidney disease; E11.51 Type 2 diabetes mellitus with diabetic peripheral angiopathy without gangrene; Z86.16 Personal history of COVID-19; E87.6 Hypokalemia; E66.9 Obesity, unspecified; Z68.38 Body mass index [BMI] 38.0-38.9, adult; E78.5 Hyperlipidemia, unspecified; N18.30 Chronic kidney disease, stage 3 unspecified; K21.9 Gastro-esophageal reflux disease without esophagitis; I27.20 Pulmonary hypertension, unspecified; I12.9 Hypertensive chronic kidney disease with stage 1 through stage 4 chronic kidney disease, or unspecified chronic kidney disease; Z87.891 Personal history of nicotine dependence; Z79.82 Long term (current) use of aspirin; Z79.899 Other long term (current) drug therapy; Z90.49 Acquired absence of other specified parts of digestive tract; Z20.822 Contact with and (suspected) exposure to COVID-19; D64.89 Other specified anemias; M19.90 Unspecified osteoarthritis, unspecified site; R41.3 Other amnesia; M25.551 Pain in right hip; M54.59 Other low back pain
CPT/HCPCS: 36415; 71046; 73502; 74022; 74176; 80048; 80053; 81001; 81003; 82607; 82728; 82747; 82784; 83540; 83550; 83605; 83615; 83690; 83883; 83921; 84145; 84165; 84484; 85025; 85045; 85610; 85652; 85730; 86038; 86140; 86334; 86431; 86644; 86645; 86663; 86664; 86665; 87040; 87324; 87449; 87502; 87635; 93005; 93306; 94760; 96361; 96365; 96375; 99285

== ENCOUNTER 2021-11-25 00:52 | Inpatient (IN) | payer MEDICARE ==
[2021-11-25] MEDS ORDERED: MAG HYDROX/AL HYDROX/SIMETH 30 ML, HYOSCYAMINE ELIXIR 10 ML, LIDOCAINE VISCOUS 2% 10 ML PO STA ×3 (02:36)
[2021-11-25 03:36] LABS: Basophils % (A) 1 %; Eosinophils # (A) 0.1 k/uL (0-0.7); Eosinophils % (A) 1 %; HCT 38.9 % (34.0-46.0); HGB 11.6 gm/dL (11.4-16.0); Hypochromasia Moderate; Lymphocytes % (A) 14 %; MCHC 29.8 g/dL (31.0-37.0); MCV 100.7 fL (80.0-100.0); Macrocytosis Slight; Mean Platelet Volume 8.1; Monocytes # (A) 0.3 k/uL (0-1.0); Monocytes % (A) 4 %; Neutrophils # (A) 5.7 k/uL (1.3-7.7); Neutrophils % (A) 78 %; Platelet Count 431 k/uL (150-450); RBC 3.86 m/uL (3.80-5.40); RDW 14.8 % (11.5-15.5); WBC 7.3 k/uL (3.8-10.6)
[2021-11-25 03:51] LABS: Albumin 3.9 g/dL (3.5-5.0); C Reactive Protein 0.9 mg/dL (<1.0); Calcium 8.7 mg/dL (8.4-10.2); Potassium 3.7 mmol/L (3.5-5.1); Total Bilirubin 0.6 mg/dL (0.2-1.3); Total Protein 6.8 g/dL (6.3-8.2)
[2021-11-25 05:18] LABS: Appearance,Urine Cloudy (Clear); Bacteria,Urine Many /hpf; Bilirubin,Urine 1+ (Negative); Blood,Urine Small (Negative); Color,Urine Yellow; Glucose,Urine (UA) Negative (Negative); Hyaline Casts,Urine 1 /lpf (0-2); Ketones,Urine 3+ (Negative); Leukocyte Esterase,Urine Moderate (Negative); Mucus,Urine Occasional /hpf; Nitrite,Urine Negative (Negative); PH, Urine 5.5 (5.0-8.0); Protein,Urine Trace (Negative); RBC,Urine 1 /hpf (0-5); Specific Gravity,Urine 1.023 (1.001-1.035); Squamous Epithelial Cell,Urine 3 /hpf (0-4); WBC,Urine 4 /hpf (0-5)
--- NOTE | 2021-11-25 06:56 | ED ---
Abdominal Pain HPI - General Source: patient, family Mode of arrival: ambulatory Limitations: no limitations - History of Present Illness Complaint: abdominal pain -: days(s) Location: epigastric Radiation: back Migration to: no migration Severity: moderate Quality: aching Consistency: constant Improves With: nothing Worsens With: nothing Associated Symptoms: nausea <Jose G Bright - Last Filed: 11/25/21 08:22> <Reji Velasco - Last Filed: 11/25/21 09:15> - General Chief Complaint: Abdominal Pain Stated Complaint: Right-side rib Pain Time Seen by Provider: 11/25/21 02:12 - Related Data Home Medications Medication Instructions Recorded Confirmed Diclofenac Sodium Gel [Voltaren 4 gm TOPICAL QID PRN 07/04/21 11/12/21 Gel] Omeprazole [PriLOSEC] 40 mg PO DAILY 07/04/21 11/12/21 Topiramate [Topamax] 50 mg PO HS 07/04/21 11/12/21 traZODone HCL [Desyrel] 100 mg PO HS 07/04/21 11/12/21 Clotrimazole Cream [Lotrimin Cream] 1 applic TOPICAL BID 11/12/21 11/12/21 Pantoprazole Sodium [Protonix] 40 mg PO BID 11/12/21 11/12/21 Sucralfate [Carafate] 1 gm PO QID 11/12/21 11/12/21 hydrALAZINE HCL [Apresoline] 50 mg PO TID 11/12/21 11/12/21 Previous Rx's Medication Instructions Recorded Aspirin 81 mg PO DAILY 60 Days #60 chew 09/20/20 Acetaminophen Tab [Tylenol] 650 mg PO Q6HR PRN tab 07/11/21 Ascorbic Acid [Vitamin C] 500 mg PO BID tab 07/11/21 Cholecalciferol [Vitamin D3 (25 100 mcg PO DAILY tablet 07/11/21 Mcg = 1000 Iu)] Gabapentin [Neurontin] 100 mg PO BID #6 cap 07/28/21 Amoxic-Pot Clav 875-125Mg 1 each PO Q12HR 7 Days #14 tab 11/21/21 [Augmentin 875-125] Atorvastatin [Lipitor] 40 mg PO DAILY #30 tab 11/21/21 Cholestyramine (with Sugar) 4 gm PO BID@1000,1800 30 Days #60 11/21/21 [Questran Packet] packet Loratadine [Claritin] 5 mg PO HS 30 Days #30 tab 11/21/21 Metoprolol Tartrate [Lopressor] 50 mg PO BID #60 tab 11/21/21 Allergies Allergy/AdvReac Type Severity Reaction Status Date / Time morphine Allergy Rash/Hives Verified 11/25/21 01:05 sulfamethoxazole Allergy ABD PAIN Verified 11/25/21 01:05 [From Bactrim] Review of Systems ROS Other: All systems not noted in ROS Statement are negative. Constitutional: Denies: fever, chills Respiratory: Denies: cough, dyspnea Cardiovascular: Denies: chest pain, palpitations Gastrointestinal: Reports: as per HPI, abdominal pain, nausea. Denies: vomiting, diarrhea, constipation, melena, hematochezia Genitourinary: Denies: dysuria, frequency, hematuria Musculoskeletal: Denies: back pain Skin: Denies: rash Neurological: Denies: headache <Jose G Bright - Last Filed: 11/25/21 08:22> ROS Other: All systems not noted in ROS Statement are negative. <Reji Velasco - Last Filed: 11/25/21 09:15> ROS Statement: Those systems with pertinent positive or pertinent negative responses have been documented in the HPI. 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 bowel resection for obstruction, amalia cataracts, Past Anesthesia/Blood Transfusion Reactions: No Reported Reaction Past Psychological History: No Psychological Hx Reported Smoking Status: Former smoker Past Alcohol Use History: Rare Past Drug Use History: None Reported - Past Family History Mother Family Medical History: Cancer, CVA/TIA, Pulmonary Embolus Additional Family Medical History / Comment(s): breast cancer Father Family Medical History: CVA/TIA, Myocardial Infarction (ID) Additional Family Medical History / Comment(s): . Brother(s) Family Medical History: Congestive Heart Failure (CHF) Additional Family Medical History / Comment(s): CABG <KailaJose G - Filed: 11/25/21 08:22> General Exam Limitations: no limitations General appearance: alert, in no apparent distress Head exam: Present: atraumatic, normocephalic Eye exam: Present: normal appearance. Absent: scleral icterus, conjunctival injection Respiratory exam: Present: normal lung sounds bilaterally. Absent: respiratory distress, wheezes, rales, rhonchi, stridor Cardiovascular Exam: Present: regular rate, normal rhythm, normal heart sounds. Absent: systolic murmur, diastolic murmur, rubs, gallop GI/Abdominal exam: Present: soft, tenderness. Absent: distended, guarding, rebound, rigid, mass, pulsatile mass, hernia Extremities exam: Present: normal inspection, normal capillary refill. Absent: pedal edema, calf tenderness Back exam: Present: normal inspection. Absent: CVA tenderness (R), CVA tenderness (L) Neurological exam: Present: alert Skin exam: Present: warm, dry, intact, normal color. Absent: rash <KailaJose G - Filed: 11/25/21 08:22> Course Vital Signs 11/25/21 11/25/21 11/25/21 01:01 03:37 06:23 Temperature 97.6 F 98.6 F 98.5 F Pulse Rate 89 73 72 Respiratory 20 18 18 Rate Blood Pressure 151/89 163/63 144/58 O2 Sat by Pulse 98 97 96 Oximetry 11/25/21 11/25/21 07:00 08:00 Temperature 98.0 F 98.0 F Pulse Rate 79 85 Respiratory 20 20 Rate Blood Pressure 166/80 163/63 O2 Sat by Pulse 99 99 Oximetry Medical Decision Making - Lab Data Result diagrams: 11/25/21 03:18 11/25/21 03:18 <KailaJose G Last Filed: 11/25/21 08:22> - Lab Data Result diagrams: 11/25/21 03:18 11/25/21 03:18 <Reji Velasco - Last Filed: 11/25/21 09:15> - Medical Decision Making Patient reevaluated by myself, Dr. Velasco. Patient still complaining of nausea and spitting up. Patient is also having multiple episodes of diarrhea. Abdomen is soft with mild diffuse tenderness. Patient is still not feeling comfortable. Prior admission reviewed. Case discussed with Dr. head, who will admit covering Dr. Chavez. Dr. Pratt will be placed on consult. (Reji Velasco) - Lab Data Lab Results 11/25/21 11/25/21 11/25/21 Range/Units 03:18 03:18 04:50 WBC 7.3 (3.8-10.6) k/uL RBC 3.86 (3.80-5.40) m/uL Hgb 11.6 (11.4-16.0) gm/dL Hct 38.9 (34.0-46.0) % MCV 100.7 H (80.0-100.0) fL MCH 30.0 (25.0-35.0) pg MCHC 29.8 L (31.0-37.0) g/dL RDW 14.8 (11.5-15.5) % Plt Count 431 (150-450) k/uL MPV 8.1 Neutrophils % 78 % Lymphocytes % 14 % Monocytes % 4 % Eosinophils % 1 % Basophils % 1 % Neutrophils # 5.7 (1.3-7.7) k/uL Lymphocytes # 1.0 (1.0-4.8) k/uL Monocytes # 0.3 (0-1.0) k/uL Eosinophils # 0.1 (0-0.7) k/uL Basophils # 0.0 (0-0.2) k/uL Hypochromasia Moderate Macrocytosis Slight Sodium 140 (137-145) mmol/L Potassium 3.7 (3.5-5.1) mmol/L Chloride 107 (98-107) mmol/L Carbon Dioxide 21 L (22-30) mmol/L Anion Gap 12 mmol/L BUN 12 (7-17) mg/dL Creatinine 0.91 (0.52-1.04) mg/dL Est GFR (CKD-EPI)AfAm 77 (>60 ml/min/1.73 sqM) Est GFR (CKD-EPI)NonAf 66 (>60 ml/min/1.73 sqM) Glucose 166 H (74-99) mg/dL Calcium 8.7 (8.4-10.2) mg/dL Total Bilirubin 0.6 (0.2-1.3) mg/dL AST 34 (14-36) U/L ALT 34 (4-34) U/L Alkaline Phosphatase 193 H (38-126) U/L C-Reactive Protein 0.9 (<1.0) mg/dL Total Protein 6.8 (6.3-8.2) g/dL Albumin 3.9 (3.5-5.0) g/dL Amylase 52 (30-110) U/L Lipase 311 H (23-300) U/L Urine Color Yellow Urine Appearance Cloudy H (Clear) Urine pH 5.5 (5.0-8.0) Ur Specific [place] 1.023 (1.001-1.035) Urine Protein Trace H (Negative) Urine Glucose (UA) Negative (Negative) Urine Ketones 3+ H (Negative) Urine Blood Small H (Negative) Urine Nitrite Negative (Negative) Urine Bilirubin 1+ H (Negative) Urine Urobilinogen 3.0 (<2.0) mg/dL Ur Leukocyte Esterase Moderate H (Negative) Urine RBC 1 (0-5) /hpf Urine WBC 4 (0-5) /hpf Ur Squamous Epith Cells 3 (0-4) /hpf Urine Bacteria Many H (None) /hpf Hyaline Casts 1 (0-2) /lpf Urine Mucus Occasional H (None) /hpf Disposition Is patient prescribed a controlled substance at d/c from ED?: No <Jose G Bright - Last Filed: 11/25/21 08:22> Is patient prescribed a controlled substance at d/c from ED?: No Time of Disposition: 09:15 <Reji Velasco - Last Filed: 11/25/21 09:15> Clinical Impression: Abdominal pain, Vomiting Disposition: ADMITTED IP TO THIS HOSP Condition: Fair Instructions (If sedation given, give patient instructions): Abdominal Pain (ED) Referrals: Dmitry eLwis MD [Primary Care Provider] - 1-2 days
[2021-11-25] MEDS ORDERED: FAMOTIDINE 20 MG/2 ML VIAL IV STA (07:18)
[2021-11-25] MEDS ORDERED: ONDANSETRON 4 MG/2 ML VIAL IVP STA (07:18)
[2021-11-25] MEDS ORDERED: HYDROmorphone 0.5 MG/0.5 ML SYRINGE IVP STA ×2 (07:18→09:20)
[2021-11-25] MEDS ORDERED: NALOXONE 0.4 MG/ML 1 ML VIAL IV PRN (09:15)
[2021-11-25] MEDS ORDERED: ONDANSETRON 4 MG/2 ML VIAL IVP PRN (09:15)
[2021-11-25] MEDS ORDERED: HYDROmorphone 0.5 MG/0.5 ML SYRINGE IVP PRN (09:17)
[2021-11-25] MEDS ORDERED: PANTOPRAZOLE 40 MG/10 ML VIAL IV SCH (09:30)
[2021-11-25] MEDS: SODIUM CHLORIDE 0.9% 1,000 ML IV SCH ×2 (09:36→15:36)
[2021-11-25] MEDS ORDERED: PANTOPRAZOLE 40 MG/10 ML VIAL IVP SCH (13:30)
[2021-11-25 13:40] LABS: Glucose,Whole Blood 105 mg/dL (75-99)
[2021-11-25] MEDS ORDERED: traMADol 50 MG TAB PO PRN (13:59)
--- NOTE | 2021-11-25 14:07 | XR ---
EXAMINATION TYPE: XR abdomen acute w cxr DATE OF EXAM: 11/25/2021 COMPARISON: CT 11/16/2021, chest x-ray 11/12/2021 HISTORY: Abdominal pain TECHNIQUE: Supine, upright, and frontal chest views of the abdomen and chest are obtained on 4 image s. FINDINGS: Chest x-ray shows some blunting of the left costophrenic angle, patchy density at the left lung base. Cardiac mediastinal silhouette within normal limits. No pneumothorax. Surgical clips present right upper quadrant. There is no evidence for pneumoperitoneum. The bowel gas pattern is unremarkable as there is air throughout nondilated small and large bowel. Air-fluid levels present without bowel distention. Probable calcified diverticulum present in the lef t lower quadrant, atherosclerotic vascular calcifications are present. No mass effects are seen. Degenerative disc changes are present in the visualized spine. IMPRESSION: Probable left pleural effusion and associated atelectasis are again present. There may be an underlyi ng ileus or enteritis, follow-up as indicated
[2021-11-25] MEDS: IOPAMIDOL CONTRAST (ORAL USE) VIAL PO PRN ×2 (14:31→15:36)
[2021-11-25] MEDS: HEPARIN SODIUM,PORCINE/PF 5,000 UNIT/0.5 ML SYRINGE SQ SCH ×2 (15:01→20:52)
[2021-11-25] MEDS: hydrALAZINE HCL 50 MG TAB PO SCH ×2 (15:36→20:51)
--- NOTE | 2021-11-25 16:02 | P.GSCN ---
History of Present Illness Consult date: 11/25/21 History of present illness: CHIEF COMPLAINT: Abdominal pain HISTORY OF PRESENT ILLNESS: This is a 66-year-old female with recent hospitalization for enteritis and discharged on 11/21/2021. Patient was discharged home with antibiotics. Patient states that she felt well when she was discharged. And then over the last couple of days she started having the diffuse abdominal pain with nausea and diarrhea again. She reports no blood in her stools. She reports multiple episodes of diarrhea. Denies any fever chills or sweats. She reports the pain is across the upper abdomen. Abdominal x-ray does mention possible underlying ileus or enteritis. Patient did have an EGD in June 2021 that had shown mild antral gastritis. Patient has multiple abdominal surgeries. Surgical history includes an incarcerated incisional hernia with mesh and lysis of adhesions in June 2021. 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 Patient seen and examined with Dr. moreno PAST MEDICAL HISTORY: See list. PAST SURGICAL HISTORY: See list. MEDICATIONS: See list. ALLERGIES: See list. SOCIAL HISTORY: No illicit drug use. REVIEW OF SYSTEMS: CONSTITUTIONAL: Denies fever or chills. HEENT: Denies blurred vision, vision changes, or eye pain. Denies hemoptysis CARDIOVASCULAR: Denies chest pain or pressure. RESPIRATORY: No shortness of breath. GASTROINTESTINAL: See HPI for pertinent findings HEMATOLOGIC: Denies bleeding disorders. GENITOURINARY: Denies any blood in urine or increased urinary frequency. SKIN: Denies pruitis. Denies rash. PHYSICAL EXAM: VITAL SIGNS: Reviewed GENERAL: Well-developed in no acute distress. HEENT: No sclera icterus. Extraocular movements grossly intact. Moist buccal mucosa. Head is atraumatic, normocephalic. No nasal drainage. ABDOMEN: Soft. Obese. Nondistended. Tenderness palpation of the upper abdomen NEUROLOGIC: Alert and oriented. Cranial nerves II through XII grossly intact. LABORATORY DATA: WBC is 7.3 hemoglobin 11.6 platelets 431 Sodium is 140 potassium 3.7 creatinine 0.91 AST 34 ALT 34 alk phos 193 Lipase 311 IMAGING: Acute abdominal series shows probable left pleural effusion and associated at electasis again present. There may be underlying ileus or enteritis ASSESSMENT: 1. Abdominal pain with possible ileus or enteritis noted on x-ray 2. Recent hospitalization with enteritis 3. History of multiple abdominal surgeries PLAN: -Computed tomography scan of abdomen and pelvis with oral and IV contrast ordered for further evaluation of abdominal pain -keep NPO until CT scan completed -Continue supportive care -Continue IV fluids -Further recommendations forthcoming per CAT scan results Thank you for this consultation Physician Relief Driller note has been reviewed by physician. Signing provider agrees with the documented findings, assessment, and plan of care. 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 bowel resection for obstruction, amalia cataracts, Past Anesthesia/Blood Transfusion Reactions: No Reported Reaction Past Psychological History: No Psychological Hx Reported Additional Psychological History / Comment(s): short term memory loss Smoking Status: Former smoker, Never smoker Past Alcohol Use History: Rare Additional Past Alcohol Use History / Comment(s): quit smoking 20 yrs ago, smoked for 20 yrs Past Drug Use History: None Reported - Past Family History Mother Family Medical History: Cancer, CVA/TIA, Deep Vein Thrombosis (DVT), Pulmonary Embolus Additional Family Medical History / Comment(s): breast cancer Father Family Medical History: CVA/TIA, Myocardial Infarction (MD) Additional Family Medical History / Comment(s): . Brother(s) Family Medical History: Congestive Heart Failure (CHF) Additional Family Medical History / Comment(s): CABG Medications and Allergies Home Medications Medication Instructions Recorded Confirmed Type Aspirin 81 mg PO DAILY 60 Days #60 chew 09/20/20 11/25/21 Rx Diclofenac Sodium Gel [Voltaren 4 gm TOPICAL QID PRN 07/04/21 11/25/21 History Gel] Omeprazole [PriLOSEC] 40 mg PO DAILY 07/04/21 11/25/21 History Topiramate [Topamax] 50 mg PO HS 07/04/21 11/25/21 History traZODone HCL [Desyrel] 100 mg PO HS 07/04/21 11/25/21 History Acetaminophen Tab [Tylenol] 650 mg PO Q6HR PRN tab 07/11/21 11/25/21 Rx Ascorbic Acid [Vitamin C] 500 mg PO BID tab 07/11/21 11/25/21 Rx Cholecalciferol [Vitamin D3 (25 100 mcg PO DAILY tablet 07/11/21 11/25/21 Rx Mcg = 1000 Iu)] Gabapentin [Neurontin] 100 mg PO BID #6 cap 07/28/21 11/25/21 Rx Clotrimazole Cream [Lotrimin Cream] 1 applic TOPICAL BID 11/12/21 11/25/21 History Pantoprazole Sodium [Protonix] 40 mg PO BID 11/12/21 11/25/21 History Sucralfate [Carafate] 1 gm PO QID 11/12/21 11/25/21 History hydrALAZINE HCL [Apresoline] 50 mg PO TID 11/12/21 11/25/21 History Atorvastatin [Lipitor] 40 mg PO DAILY #30 tab 11/21/21 11/25/21 Rx Cholestyramine (with Sugar) 4 gm PO BID@1000,1800 30 Days #60 11/21/21 11/25/21 Rx [Questran Packet] packet Loratadine [Claritin] 5 mg PO HS 30 Days #30 tab 11/21/21 11/25/21 Rx Metoprolol Tartrate [Lopressor] 50 mg PO BID #60 tab 11/21/21 11/25/21 Rx Amoxic-Pot Clav 875-125Mg 1 tab PO Q12HR 11/25/21 11/25/21 History [Augmentin 875-125] Allergies Allergy/AdvReac Type Severity Reaction Status Date / Time morphine Allergy Rash/Hives Verified 11/25/21 09:45 sulfamethoxazole Allergy ABD PAIN Verified 11/25/21 09:45 [From Bactrim] Surgical - Exam Vital Signs Temp Pulse Resp BP Pulse Ox 97.6 F 89 20 151/89 98 11/25/21 01:01 11/25/21 01:01 11/25/21 01:01 11/25/21 01:01 11/25/21 01:01 Results - Labs 11/25/21 03:18 11/25/21 03:18 Abnormal Lab Results - Last 24 Hours (Table) 11/25/21 11/25/21 11/25/21 Range/Units 03:18 03:18 04:50 MCV 100.7 H (80.0-100.0) fL MCHC 29.8 L (31.0-37.0) g/dL Carbon Dioxide 21 L (22-30) mmol/L Glucose 166 H (74-99) mg/dL Alkaline Phosphatase 193 H (38-126) U/L Lipase 311 H (23-300) U/L Urine Appearance Cloudy H (Clear) Urine Protein Trace H (Negative) Urine Ketones 3+ H (Negative) Urine Blood Small H (Negative) Urine Bilirubin 1+ H (Negative) Ur Leukocyte Esterase Moderate H (Negative) Urine Bacteria Many H (None) /hpf Urine Mucus Occasional H (None) /hpf Diabetes panel 11/25/21 Range/Units 03:18 Sodium 140 (137-145) mmol/L Potassium 3.7 (3.5-5.1) mmol/L Chloride 107 (98-107) mmol/L Carbon Dioxide 21 L (22-30) mmol/L BUN 12 (7-17) mg/dL Creatinine 0.91 (0.52-1.04) mg/dL Glucose 166 H (74-99) mg/dL Calcium 8.7 (8.4-10.2) mg/dL AST 34 (14-36) U/L ALT 34 (4-34) U/L Alkaline Phosphatase 193 H (38-126) U/L Total Protein 6.8 (6.3-8.2) g/dL Albumin 3.9 (3.5-5.0) g/dL Calcium panel 11/25/21 Range/Units 03:18 Calcium 8.7 (8.4-10.2) mg/dL Albumin 3.9 (3.5-5.0) g/dL Pituitary panel 11/25/21 Range/Units 03:18 Sodium 140 (137-145) mmol/L Potassium 3.7 (3.5-5.1) mmol/L Chloride 107 (98-107) mmol/L Carbon Dioxide 21 L (22-30) mmol/L BUN 12 (7-17) mg/dL Creatinine 0.91 (0.52-1.04) mg/dL Glucose 166 H (74-99) mg/dL Calcium 8.7 (8.4-10.2) mg/dL Adrenal panel 11/25/21 Range/Units 03:18 Sodium 140 (137-145) mmol/L Potassium 3.7 (3.5-5.1) mmol/L Chloride 107 (98-107) mmol/L Carbon Dioxide 21 L (22-30) mmol/L BUN 12 (7-17) mg/dL Creatinine 0.91 (0.52-1.04) mg/dL Glucose 166 H (74-99) mg/dL Calcium 8.7 (8.4-10.2) mg/dL Total Bilirubin 0.6 (0.2-1.3) mg/dL AST 34 (14-36) U/L ALT 34 (4-34) U/L Alkaline Phosphatase 193 H (38-126) U/L Total Protein 6.8 (6.3-8.2) g/dL Albumin 3.9 (3.5-5.0) g/dL
--- NOTE | 2021-11-25 16:35 | CT ---
EXAMINATION TYPE: CT abdomen pelvis w con DATE OF EXAM: 11/25/2021 HISTORY: vomiting, abd pain CT DLP: 798.5mGycm Automated Exposure Control for Dose Reduction was Utilized. CONTRAST: CT scan of the abdomen and pelvis is performed with IV Contrast, patient injected with 70 mL of Isovu e 300. COMPARISON: CT abdomen and pelvis one week ago and older CTs FINDINGS: LUNG BASES: Only minimally imaged. LIVER/GB: Cholecystectomy clips are redemonstrated. PANCREAS: Mild to moderate generalized fat replaced atrophy redemonstrated. SPLEEN: No significant abnormality is seen. ADRENALS: No significant abnormality is seen. KIDNEYS: Cortical thinning bilaterally. Simple appearing 2.9 cm thin-walled cyst lower pole left kidn ey. No hydronephrosis seen bilaterally. BOWEL: The overall reaches the level of the rectum. No suspicious small or large bowel dilatation. Khanna rgical changes at level of diaphragmatic hiatus redemonstrated. Stomach poorly distended and less sub optimally evaluated on current study. Suggestion of a focal mass or wall thickening on most recent pr ior just below diaphragm. Correlate clinically. UTERUS/ADNEXA: Anteverted uterus. LYMPH NODES: No greater than 1cm abdominal or pelvic lymph nodes are appreciated. OSSEOUS STRUCTURES: Multilevel vacuum disc phenomenon in the lower lumbar spine. [id number] dis c space narrowing or lumbar levels. OTHER: Mild calcified plaque of the aorta extends into branch vessels. IMPRESSION: No bowel obstruction. No new or acute findings are evident.
[2021-11-25] MEDS: CHOLESTYRAMINE (WITH SUGAR) 4 GM PACKET PO SCH (17:26)
--- NOTE | 2021-11-25 17:26 | HP ---
HISTORY AND PHYSICAL DATE OF SERVICE: 11/25/2021 CHIEF COMPLAINT: Abdominal pain. HISTORY OF PRESENT ILLNESS: This 66-year-old woman with a past medical history of multiple medical problems, including renal failure and history of GERD, being followed by Dr. Lewis in the outpatient setting, had multiple hospital admissions. Patient had recent incarcerated incisional hernia repair with lysis of adhesions. Patient subsequently had abdominal pain and was recently admitted for abdominal pain. The patient also had multiple abnormalities, including possible seroma and possible metastatic versus reactive node. The patient went home. The patient had pain in the upper abdomen radiating from back to the front and the patient was admitted for further evaluation and treatment. Surgical evaluation is in progress. There is no history of any fever, rigor or chills at this time. PAST MEDICAL HISTORY: History of GERD, history of CAD, peripheral vascular disease. HOME MEDICATIONS: Reviewed. They include trazodone. Doses and the rest of the medications are noted. ALLERGIES: MORPHINE. FAMILY HISTORY: History of DVT. SOCIAL HISTORY: Previous history of smoking. REVIEW OF SYSTEMS: Fourteen-point review of systems negative except as mentioned earlier. PHYSICAL EXAMINATION: Pulse 88, blood pressure 163/84, respirations 15. HEENT: Conjunctivae normal. NECK: No jugular venous distention. CARDIOVASCULAR: S1, S2 muffled. RESPIRATION: Breath sounds diminished at the bases. No rhonchi. No crackles. ABDOMEN: Soft. Minimal tenderness in the upper abdomen. No guarding. No rigidity. No mass palpable. Obese. Bowel sounds present. No ascites. LEGS: No edema. No swelling. NERVOUS SYSTEM: No focal deficit. SKIN: No ulcer, rash, bleeding. JOINTS: No active deforming arthropathy. LABS: CBC within normal limits. Sodium 140. Potassium 3.7. ASSESSMENT: 1. Abdominal pain for evaluation. 2. History of recurrent abdominal pain. 3. Possible mild pancreatitis. 4. History of recent incisional hernia repair with mesh and lysis of adhesions. 5. Chronic kidney disease, stage 3. 6. Gastroesophageal reflux disease. 7. History of coronary artery disease. 8. History of peripheral vascular disease. 9. Diabetes mellitus. 10.Hypertension. 11.Multiple medical issues. RECOMMENDATIONS AND DISCUSSION: In this 66-year-old woman who presented with multiple complex medical issues, we will monitor the patient closely. Symptomatic treatment will be provided with pain medications. The patient is only able to tolerate Ultram. Surgical consultation. Otherwise, continue to monitor. Lipase is mildly elevated. I will continue to monitor. See orders for details. Prognosis guarded. Further recommendations to follow. Discussed with the family at length. MMODL / IJN: [id number] /
[2021-11-25] MEDS: SUCRALFATE 1 GM TAB PO SCH ×2 (17:27→20:51)
[2021-11-25 17:39] LABS: Glucose,Whole Blood 96 mg/dL (75-99)
[2021-11-25 19:45] LABS: Glucose,Whole Blood 90 mg/dL (75-99)
[2021-11-25] MEDS: TOPIRAMATE 25 MG TAB PO SCH (20:51)
[2021-11-25] MEDS: GABAPENTIN 100 MG CAP PO SCH (20:51)
[2021-11-25] MEDS: LORATADINE 10 MG TAB PO SCH (20:51)
[2021-11-25] MEDS: METOPROLOL TARTRATE 50 MG TAB PO SCH (20:51)
[2021-11-25] MEDS: traZODone HCL 100 MG TAB PO SCH (20:51)
[2021-11-25] MEDS: ASCORBIC ACID 500 MG TAB PO SCH (20:52)
[2021-11-25] MEDS: AMOXIC-POT CLAV 875-125MG 1 EACH TAB PO SCH (20:52)
[2021-11-25] MEDS: PANTOPRAZOLE 40 MG/10 ML VIAL IVP SCH (20:55)
[2021-11-25] MEDS: ACETAMINOPHEN TAB 325 MG TAB PO PRN (21:09)
[2021-11-26] MEDS: SODIUM CHLORIDE 0.9% 1,000 ML IV SCH ×3 (00:42→16:11)
[2021-11-26 02:49] LABS: Glucose,Whole Blood 127 mg/dL (75-99)
[2021-11-26 07:08] LABS: Glucose,Whole Blood 92 mg/dL (75-99)
[2021-11-26] MEDS: ASPIRIN 81 MG PO SCH (07:31)
[2021-11-26] MEDS: METOPROLOL TARTRATE 50 MG TAB PO SCH ×2 (07:31→19:22)
[2021-11-26] MEDS: ATORVASTATIN 40 MG TAB PO SCH (07:31)
[2021-11-26] MEDS: AMOXIC-POT CLAV 875-125MG 1 EACH TAB PO SCH ×2 (07:31→19:22)
[2021-11-26] MEDS: hydrALAZINE HCL 50 MG TAB PO SCH ×2 (07:31→16:12)
[2021-11-26] MEDS: GABAPENTIN 100 MG CAP PO SCH ×2 (07:31→19:21)
[2021-11-26] MEDS: ASCORBIC ACID 500 MG TAB PO SCH ×2 (07:32→19:22)
[2021-11-26] MEDS: CHOLECALCIFEROL 25 MCG (1000 IU) TABLET PO SCH (07:32)
[2021-11-26] MEDS: HEPARIN SODIUM,PORCINE/PF 5,000 UNIT/0.5 ML SYRINGE SQ SCH ×2 (07:32→19:22)
[2021-11-26] MEDS: PANTOPRAZOLE 40 MG/10 ML VIAL IVP SCH ×2 (07:32→19:22)
[2021-11-26] MEDS: SUCRALFATE 1 GM TAB PO SCH ×3 (07:32→17:04)
[2021-11-26 08:43] LABS: Basophils # (A) 0.03 X 10*3/uL (0.00-0.10); Basophils % (A) 0.6 %; Eosinophils # (A) 0.21 X 10*3/uL (0.04-0.35); Eosinophils % (A) 3.9 %; HCT 35.5 % (37.2-46.3); HGB 10.7 g/dL (12.0-15.0); Immature Grans, Automated 0.6 %; Lymphocytes # (A) 1.28 X 10*3/uL (0.90-5.00); Lymphocytes % (A) 23.6 %; MCH 29.9 pg (27.0-32.0); MCHC 30.1 g/dL (32.0-37.0); MCV 99.2 fL (80.0-97.0); Mean Platelet Volume 10.4 fL (9.5-12.2); Monocytes # (A) 0.49 X 10*3/uL (0.20-1.00); NRBC Per 100 WBC 0 /100 WBCS (0.0-0.0); Neutrophils # (A) 3.39 X 10*3/uL (1.80-7.70); Neutrophils % (A) 62.3 %; Platelet Count 410 X 10*3/uL (140-440); RBC 3.58 X 10*6/uL (4.10-5.20); RDW 15.9 % (11.5-14.5); WBC 5.43 X 10*3/uL (4.50-10.00)
[2021-11-26 08:56] LABS: ALT 25 U/L (8-44); AST 19 U/L (13-35); Albumin 3.6 g/dL (3.8-4.9); Albumin/Globulin Ratio 1.54 (1.60-3.17); Alkaline Phosphatase 157 U/L (41-126); Amylase 37 U/L (23-121); Blood Urea Nitrogen 12.1 mg/dL (9.0-27.0); Calcium 8.6 mg/dL (8.7-10.3); Carbon Dioxide 21.3 mmol/L (20.0-27.5); Chloride 106 mmol/L (96-109); Chol/HDL Ratio 3.42 Ratio; Globulin 2.3 g/dL (1.6-3.3); Glucose 91 mg/dL (70-110); LDL Cholesterol,Calculated 78.2 mg/dL (0.0-131.0); Lipase 68 U/L (14-63); Non-African American GFR(CKD) 63.8 (60.0-200.0); Potassium 4.3 mmol/L (3.5-5.5); Sodium 140 mmol/L (135-145); Total Protein 5.9 g/dL (6.2-8.2)
[2021-11-26] MEDS: CHOLESTYRAMINE (WITH SUGAR) 4 GM PACKET PO SCH ×2 (09:10→17:03)
--- NOTE | 2021-11-26 09:12 | P.PN ---
Subjective Progress Note Date: 11/26/21 Principal diagnosis: Abdominal pain Patient says her abdominal pain is improved. She had 4-5 loose bowel movements yesterday. She is tolerating clear liquids. She is hungry more. No nausea. Objective - Vital Signs Vital signs: Vital Signs Temp 98.4 F 11/26/21 07:00 Pulse 72 11/26/21 07:00 Resp 18 11/26/21 07:00 BP 112/66 11/26/21 07:00 Pulse Ox 94 L 11/26/21 07:00 FiO2 Intake & Output 11/25/21 11/26/21 11/26/21 18:59 06:59 18:59 Weight 81.647 kg Other: Voiding Method Incontinent Toilet Toilet # Voids 1 1 - Exam Abdomen: Soft, nontender, nondistended - Labs CBC & Chem 7: 11/26/21 06:19 11/26/21 06:19 Labs: Abnormal Lab Results - Last 24 Hours (Table) 11/25/21 11/26/21 11/26/21 Range/Units 13:38 02:48 06:19 RBC (4.10-5.20) X 10*6/uL Hgb (12.0-15.0) g/dL Hct (37.2-46.3) % MCV (80.0-97.0) fL MCHC (32.0-37.0) g/dL RDW (11.5-14.5) % POC Glucose (mg/dL) 105 H 127 H (75-99) mg/dL Calcium 8.6 L (8.7-10.3) mg/dL Alkaline Phosphatase 157 H (41-126) U/L Total Protein 5.9 L (6.2-8.2) g/dL Albumin 3.6 L (3.8-4.9) g/dL Albumin/Globulin Ratio 1.54 L (1.60-3.17) g/dL Lipase 68 H (14-63) U/L 11/26/21 Range/Units 06:19 RBC 3.58 L (4.10-5.20) X 10*6/uL Hgb 10.7 L (12.0-15.0) g/dL Hct 35.5 L (37.2-46.3) % MCV 99.2 H (80.0-97.0) fL MCHC 30.1 L (32.0-37.0) g/dL RDW 15.9 H (11.5-14.5) % POC Glucose (mg/dL) (75-99) mg/dL Calcium (8.7-10.3) mg/dL Alkaline Phosphatase (41-126) U/L Total Protein (6.2-8.2) g/dL Albumin (3.8-4.9) g/dL Albumin/Globulin Ratio (1.60-3.17) g/dL Lipase (14-63) U/L Assessment and Plan (1) Abdominal pain Narrative/Plan: Patient with intermittent abdominal pain complaints and loose stools. Continue advancing diet as tolerated. Increase activity. No surgical intervention planned at this time. Current Visit: Yes Status: Acute Code(s): R10.9 - UNSPECIFIED ABDOMINAL PAIN SNOMED Code(s): 06726494
[2021-11-26 11:54] LABS: Glucose,Whole Blood 87 mg/dL (75-99)
--- NOTE | 2021-11-26 15:12 | PN ---
PROGRESS NOTE DATE OF SERVICE: 11/26/2021 This 66-year-old woman who was admitted with abdominal pain had multiple issues previously. No chest pain. No palpitations. No fever. PHYSICAL EXAMINATION: Pulse 69, blood pressure 116/70, respirations 16. CHEST: Clear to auscultation. CARDIOVASCULAR: S1, S2 muffled. ABDOMEN: Soft. NERVOUS SYSTEM: No focal deficit. LABS: WBC 5.3, hemoglobin 10.6. Other labs are noted. ASSESSMENT: 1. Abdominal pain for evaluation. 2. History of recurrent abdominal pain. 3. Possible mild pancreatitis. 4. History of recent incisional hernia repair with mesh and lysis of adhesions. 5. Chronic kidney disease, stage 3. 6. Gastroesophageal reflux disease. 7. Multiple medical issues. RECOMMENDATIONS AND DISCUSSION: I recommend to continue current medications, continue with the monitoring, symptomatic treatment. Closely follow with Surgery. Advance diet. Guarded prognosis. Further recommendations to follow. MMODL / IJN: [id number] /
[2021-11-26 15:30] VITALS: BMI 36.3
[2021-11-26 16:38] LABS: Glucose,Whole Blood 150 mg/dL (75-99)
[2021-11-26] MEDS: TOPIRAMATE 25 MG TAB PO SCH (19:21)
[2021-11-26] MEDS: LORATADINE 10 MG TAB PO SCH (19:21)
[2021-11-26] MEDS: traZODone HCL 100 MG TAB PO SCH (19:22)
[2021-11-26] MEDS: CARAFATE 1 GM/10 ML PO SCH (20:07)
[2021-11-26 20:12] LABS: Glucose,Whole Blood 151 mg/dL (75-99)
[2021-11-27] MEDS: hydrALAZINE HCL 50 MG TAB PO SCH ×4 (02:00→20:06)
[2021-11-27] MEDS: SODIUM CHLORIDE 0.9% 1,000 ML IV SCH ×3 (02:01→12:46)
[2021-11-27 07:12] LABS: Glucose,Whole Blood 104 mg/dL (75-99)
[2021-11-27] MEDS: CARAFATE 1 GM/10 ML PO SCH ×4 (07:29→20:07)
[2021-11-27] MEDS: METOPROLOL TARTRATE 50 MG TAB PO SCH ×2 (07:30→20:06)
[2021-11-27] MEDS: ASCORBIC ACID 500 MG TAB PO SCH ×2 (07:30→20:06)
[2021-11-27] MEDS: AMOXIC-POT CLAV 875-125MG 1 EACH TAB PO SCH ×2 (07:30→20:05)
[2021-11-27] MEDS: ATORVASTATIN 40 MG TAB PO SCH (07:30)
[2021-11-27] MEDS: HEPARIN SODIUM,PORCINE/PF 5,000 UNIT/0.5 ML SYRINGE SQ SCH ×2 (07:31→20:05)
[2021-11-27] MEDS: PANTOPRAZOLE 40 MG/10 ML VIAL IVP SCH ×2 (07:31→20:06)
[2021-11-27] MEDS: GABAPENTIN 100 MG CAP PO SCH ×2 (07:31→20:06)
[2021-11-27] MEDS: CHOLECALCIFEROL 25 MCG (1000 IU) TABLET PO SCH (07:31)
[2021-11-27] MEDS: ASPIRIN 81 MG PO SCH (07:31)
[2021-11-27] MEDS: CHOLESTYRAMINE (WITH SUGAR) 4 GM PACKET PO SCH ×2 (09:15→17:13)
--- NOTE | 2021-11-27 11:59 | P.PN ---
Subjective Progress Note Date: 11/27/21 Principal diagnosis: Abdominal pain Patient doing well today. Tolerating full liquids. Says her pain is unchanged. She had an episode of vomiting last night. No bowel movement today. Yesterday the bowels seemed less loose in nature. Objective - Vital Signs Vital signs: Vital Signs Temp 98.1 F 11/27/21 07:00 Pulse 70 11/27/21 07:00 Resp 16 11/27/21 07:00 BP 122/63 11/27/21 07:00 Pulse Ox 94 L 11/27/21 07:00 FiO2 Intake & Output 11/26/21 11/27/21 11/27/21 18:59 06:59 18:59 Intake Total 720 180 Balance 720 180 Weight 81.647 kg Intake: Oral 720 180 Other: Voiding Method Toilet Toilet Toilet # Voids 2 1 - Exam Abdomen: Soft, nondistended, minimal diffuse tenderness - Labs CBC & Chem 7: 11/26/21 06:19 11/26/21 06:19 Labs: Abnormal Lab Results - Last 24 Hours (Table) 11/26/21 11/26/21 11/27/21 Range/Units 16:37 20:11 07:11 POC Glucose (mg/dL) 150 H 151 H 104 H (75-99) mg/dL Assessment and Plan (1) Abdominal pain Narrative/Plan: Patient seems to be still having some degree of abdominal discomforts. Continue full liquids for now. Ambulate. Will follow. Current Visit: Yes Status: Acute Code(s): R10.9 - UNSPECIFIED ABDOMINAL PAIN SNOMED Code(s): 29390203
[2021-11-27 12:13] LABS: Glucose,Whole Blood 102 mg/dL (75-99)
--- NOTE | 2021-11-27 15:39 | PN ---
PROGRESS NOTE DATE OF SERVICE: 11/27/2021 This 66-year-old woman was admitted with abdominal pain, is being closely monitored. Patient has some minimal abdominal pain. No chest pain. No palpitations. No fever. PHYSICAL EXAMINATION: Alert and oriented. Pulse 70. Blood pressure 126/60, respirations 16. HEENT: Conjunctivae normal. Neck: No JVD. Cardiovascular: S1, S2. Respirations: Breath sounds diminished in the bases. Abdomen: Soft, nontender. No mass palpable. Legs: No edema. LABS: Noted. ASSESSMENT: 1. Abdominal pain for evaluation. 2. History of recurrent abdominal pain. 3. Possible mild pancreatitis. 4. History of recent incisional hernia repair mesh and lysis of adhesions. 5. Chronic kidney disease stage 3. 6. Gastroesophageal reflux disease. 7. Multiple medical issues. RECOMMENDATIONS AND DISCUSSION: Recommend to continue current medications, symptomatic treatment. Otherwise at this time, I would recommend repeat labs tomorrow. Continue with symptomatic treatment. Closely follow with surgery. Further recommendations to follow. MMODL / IJN: [id number] /
[2021-11-27 17:30] LABS: Glucose,Whole Blood 85 mg/dL (75-99)
[2021-11-27] MEDS: TOPIRAMATE 25 MG TAB PO SCH (20:05)
[2021-11-27] MEDS: LORATADINE 10 MG TAB PO SCH (20:06)
[2021-11-27] MEDS: traZODone HCL 100 MG TAB PO SCH (20:06)
[2021-11-27] MEDS: ACETAMINOPHEN TAB 325 MG TAB PO PRN (20:21)
[2021-11-27 21:55] LABS: Glucose,Whole Blood 90 mg/dL (75-99)
[2021-11-28] MEDS: SODIUM CHLORIDE 0.9% 1,000 ML IV SCH ×4 (04:21→22:45)
[2021-11-28 08:03] LABS: Glucose,Whole Blood 94 mg/dL (75-99)
[2021-11-28] MEDS: GABAPENTIN 100 MG CAP PO SCH ×2 (08:36→22:34)
[2021-11-28] MEDS: ASPIRIN 81 MG PO SCH (08:36)
[2021-11-28] MEDS: METOPROLOL TARTRATE 50 MG TAB PO SCH ×2 (08:36→22:33)
[2021-11-28] MEDS: HEPARIN SODIUM,PORCINE/PF 5,000 UNIT/0.5 ML SYRINGE SQ SCH ×2 (08:36→22:33)
[2021-11-28] MEDS: CHOLECALCIFEROL 25 MCG (1000 IU) TABLET PO SCH (08:36)
[2021-11-28] MEDS: AMOXIC-POT CLAV 875-125MG 1 EACH TAB PO SCH ×2 (08:37→22:34)
[2021-11-28] MEDS: ASCORBIC ACID 500 MG TAB PO SCH ×2 (08:37→22:34)
[2021-11-28] MEDS: ATORVASTATIN 40 MG TAB PO SCH (08:37)
[2021-11-28] MEDS: CHOLESTYRAMINE (WITH SUGAR) 4 GM PACKET PO SCH ×2 (08:37→17:25)
[2021-11-28] MEDS: PANTOPRAZOLE 40 MG/10 ML VIAL IVP SCH ×2 (08:37→22:34)
[2021-11-28] MEDS: CARAFATE 1 GM/10 ML PO SCH ×4 (08:38→22:35)
[2021-11-28] MEDS: hydrALAZINE HCL 50 MG TAB PO SCH ×3 (10:55→22:37)
[2021-11-28 10:59] LABS: Basophils # (A) 0.05 X 10*3/uL (0.00-0.10); Basophils % (A) 1.3 %; Eosinophils # (A) 0.12 X 10*3/uL (0.04-0.35); Eosinophils % (A) 3.1 %; HCT 34.5 % (37.2-46.3); HGB 10.6 g/dL (12.0-15.0); Immature Grans, Automated 0.5 %; Lymphocytes # (A) 1.02 X 10*3/uL (0.90-5.00); Lymphocytes % (A) 26.7 %; MCH 30.1 pg (27.0-32.0); MCHC 30.7 g/dL (32.0-37.0); Mean Platelet Volume 10.5 fL (9.5-12.2); Monocytes # (A) 0.34 X 10*3/uL (0.20-1.00); Monocytes % (A) 8.9 %; NRBC Per 100 WBC 0 /100 WBCS (0.0-0.0); Neutrophils # (A) 2.27 X 10*3/uL (1.80-7.70); Neutrophils % (A) 59.5 %; Platelet Count 320 X 10*3/uL (140-440); RBC 3.52 X 10*6/uL (4.10-5.20); RDW 16.1 % (11.5-14.5); WBC 3.82 X 10*3/uL (4.50-10.00)
[2021-11-28 11:24] LABS: Albumin 3.5 g/dL (3.8-4.9); Albumin/Globulin Ratio 1.54 (1.60-3.17); Anion Gap 13.7 mmol/L (10.00-18.00); BUN/Creat Ratio 12.06 Ratio (12.00-20.00); Blood Urea Nitrogen 11.7 mg/dL (9.0-27.0); Calcium 8.7 mg/dL (8.7-10.3); Carbon Dioxide 19.3 mmol/L (20.0-27.5); Globulin 2.2 g/dL (1.6-3.3); Non-African American GFR(CKD) 61.3 (60.0-200.0); Potassium 4.3 mmol/L (3.5-5.5); Total Bilirubin 0.3 mg/dL (0.30-1.20); Total Protein 5.7 g/dL (6.2-8.2)
[2021-11-28 12:02] LABS: Glucose,Whole Blood 94 mg/dL (75-99)
[2021-11-28] MEDS: ACETAMINOPHEN TAB 325 MG TAB PO PRN (13:32)
--- NOTE | 2021-11-28 14:45 | P.PN ---
Subjective Progress Note Date: 11/28/21 CHIEF COMPLAINT: Abdominal pain HISTORY OF PRESENT ILLNESS: Patient continues to complain of abdominal pain. She did have some nausea this morning. Her stools are semi-formed. She's currently on a clear liquid diet. Computed tomography scan and pelvis on 11/25/2021 no evidence of bowel distraction. No acute findings are evident. Afebrile. WBC is 3.8 to hematoma 10.6 platelets 320 sodium 141 potassium 4.3 creatinine 1.0 PHYSICAL EXAM: VITAL SIGNS: Reviewed. GENERAL: Well-developed in no acute distress. HEENT: No sclera icterus. Extraocular movements grossly intact. Moist buccal mucosa. Head is atraumatic, normocephalic. ABDOMEN: Soft. Nondistended. Mild diffuse tenderness NEUROLOGIC: Alert and oriented. Cranial nerves II through XII grossly intact. ASSESSMENT: 1. Abdominal pain 2. Recent hospitalization with enteritis 3. History of multiple abdominal surgeries PLAN: -Continue clear liquid diet -Continue supportive care -Continue antiemetics -Encourage patient to ambulate Physician Cinder Crane Operator note has been reviewed by physician. Signing provider agrees with the documented findings, assessment, and plan of care. Objective - Vital Signs Vital signs: Vital Signs Temp 98.1 F 11/28/21 08:00 Pulse 66 11/28/21 08:00 Resp 18 11/28/21 13:49 BP 133/79 11/28/21 08:00 Pulse Ox 95 11/28/21 08:00 FiO2 Intake & Output 11/27/21 11/28/21 11/28/21 18:59 06:59 18:59 Intake Total 270 330 Balance 270 330 Intake: Oral 270 330 Other: Voiding Method Toilet Toilet Toilet # Voids 1 2 1 - Labs CBC & Chem 7: 11/28/21 07:00 11/28/21 07:00 Labs: Abnormal Lab Results - Last 24 Hours (Table) 11/28/21 11/28/21 Range/Units 07:00 07:00 WBC 3.82 L (4.50-10.00) X 10*3/uL RBC 3.52 L (4.10-5.20) X 10*6/uL Hgb 10.6 L (12.0-15.0) g/dL Hct 34.5 L (37.2-46.3) % MCV 98.0 H (80.0-97.0) fL MCHC 30.7 L (32.0-37.0) g/dL RDW 16.1 H (11.5-14.5) % Carbon Dioxide 19.3 L (20.0-27.5) mmol/L Alkaline Phosphatase 132 H (41-126) U/L Total Protein 5.7 L (6.2-8.2) g/dL Albumin 3.5 L (3.8-4.9) g/dL Albumin/Globulin Ratio 1.54 L (1.60-3.17) g/dL
--- NOTE | 2021-11-28 15:48 | P.PN ---
Subjective Progress Note Date: 11/28/21 This is a 66 year old female who presents with abdominal pain, nausea. Patient today states she feels worse than yesterday. She is having ongoing nausea and states she has been unable to vomit which has been an ongoing issue since her hernia surgery. She was recently discharged on 11/15/21 for abdominal pain and nausea as well at that time she underwent evaluation by oncology for possible metastatic or reactive abdominal nodes, possible postoperative seroma, possible abscess as well as recurrent tiny hiatal hernia and she was also treated for mild enteritis and is currently finishing a course of antibiotic therapy with augmentin. She states pain is a 5/10 epigastric and wraps like a band around her stomach. She also reports loose brown stool over the last few days as well. She is being follow by general surgery and is on a clear liquid diet. She is on liquid carafate, protonix, and continues on IV fluids at 130 mls per hour. There is some abdominal tenderness with palpation. Labs today showing white count 3.82, hgb 10.6, alk phos 132. We will consult GI for evaluation as well, she was recommended to follow up outpatient from her last hospitalization. She was also instructed to follow up with oncology/hematology post discharge as well. Review of Systems Constitutional: Denied any fatigue denied any fever. Cardio vascular: denied any chest pain, palpitations Gastrointestinal: Reports nausea, diarrhea Pulmonary: Denied any shortness of breath cough Neurologic denied any new focal deficits All inpatient medications were reviewed and appropriate changes in these medications as dictated in the interval history and assessment and plan. PHYSICAL EXAMINATION: GENERAL: The patient is alert and oriented x3, not in any acute distress. Well developed, well nourished. HEENT: Pupils are round and equally reacting to light. EOMI. No scleral icterus. No conjunctival pallor. Normocephalic, atraumatic. No pharyngeal erythema. No thyromegaly. CARDIOVASCULAR: S1 and S2 present. No murmurs, rubs, or gallops. PULMONARY: Chest is clear to auscultation, no wheezing or crackles. ABDOMEN: Soft, nondistended, normoactive bowel sounds. Tender to palpation. MUSCULOSKELETAL: No joint swelling or deformity. EXTREMITIES: No cyanosis, clubbing, or pedal edema. NEUROLOGICAL: Gross neurological examination did not reveal any focal deficits. SKIN: No rashes. Assessment and plan Assessment Abdominal pain with intractable nausea History of recurrent abdominal pain Ongoing diarrhea Status post incarcerated abdominal hernia repair with mesh and lysis of a dhesions 07/08/2021 Chronic kidney disease stage 3 Gastroesophageal reflux disease Anemia, macrocytic - Vit B12 and folate checked previous admission and within normal limits Hypertension Diabetes Mellitus Type 2 Possble IBS, was supposed to follow up with GI outpatient Obesity GI Prophylaxis DVT Prophylaxis Plan Continue Clear liquid diet Finish course of augmentin therapy Consult GI services General surgery following patient closely Continue with pain management Continue with antiemetics The impression and plan of care has been dictated by Julia Batres, Nurse Practitioner as directed. Dr. Trupti MD I have performed a history and physical examination and medical decision making of this patient, discussed the same with the dictator, and agree with the dictators assessment and plan as written, documented as a scribe. Based on total visit time, I have performed more than 50% of this visit. Objective - Vital Signs Vital signs: Vital Signs Temp 98.1 F 11/28/21 08:00 Pulse 66 11/28/21 08:00 Resp 18 11/28/21 13:49 BP 133/79 11/28/21 08:00 Pulse Ox 95 11/28/21 08:00 FiO2 Intake & Output 11/27/21 11/28/21 11/28/21 18:59 06:59 18:59 Intake Total 270 330 Balance 270 330 Intake: Oral 270 330 Other: Voiding Method Toilet Toilet Toilet # Voids 1 2 1 - Labs CBC & Chem 7: 11/28/21 07:00 11/28/21 07:00 Labs: Abnormal Lab Results - Last 24 Hours (Table) 11/28/21 11/28/21 Range/Units 07:00 07:00 WBC 3.82 L (4.50-10.00) X 10*3/uL RBC 3.52 L (4.10-5.20) X 10*6/uL Hgb 10.6 L (12.0-15.0) g/dL Hct 34.5 L (37.2-46.3) % MCV 98.0 H (80.0-97.0) fL MCHC 30.7 L (32.0-37.0) g/dL RDW 16.1 H (11.5-14.5) % Carbon Dioxide 19.3 L (20.0-27.5) mmol/L Alkaline Phosphatase 132 H (41-126) U/L Total Protein 5.7 L (6.2-8.2) g/dL Albumin 3.5 L (3.8-4.9) g/dL Albumin/Globulin Ratio 1.54 L (1.60-3.17) g/dL Assessment and Plan Time with Patient: Less than 30
[2021-11-28 16:56] LABS: Glucose,Whole Blood 93 mg/dL (75-99)
[2021-11-28 20:55] LABS: Glucose,Whole Blood 91 mg/dL (75-99)
[2021-11-28] MEDS: traZODone HCL 100 MG TAB PO SCH (22:33)
[2021-11-28] MEDS: LORATADINE 10 MG TAB PO SCH (22:33)
[2021-11-28] MEDS: TOPIRAMATE 25 MG TAB PO SCH (22:34)
[2021-11-29] MEDS: SODIUM CHLORIDE 0.9% 1,000 ML IV SCH ×3 (06:00→16:03)
[2021-11-29 06:51] LABS: Glucose,Whole Blood 81 mg/dL (75-99)
[2021-11-29] MEDS: ATORVASTATIN 40 MG TAB PO SCH (08:49)
[2021-11-29] MEDS: METOPROLOL TARTRATE 50 MG TAB PO SCH ×2 (08:49→20:52)
[2021-11-29] MEDS: HEPARIN SODIUM,PORCINE/PF 5,000 UNIT/0.5 ML SYRINGE SQ SCH ×2 (08:49→20:56)
[2021-11-29] MEDS: AMOXIC-POT CLAV 875-125MG 1 EACH TAB PO SCH ×2 (08:50→20:52)
[2021-11-29] MEDS: PANTOPRAZOLE 40 MG/10 ML VIAL IVP SCH ×2 (08:50→20:52)
[2021-11-29] MEDS: hydrALAZINE HCL 50 MG TAB PO SCH ×3 (08:50→20:52)
[2021-11-29] MEDS: ASPIRIN 81 MG PO SCH (08:50)
[2021-11-29] MEDS: CHOLECALCIFEROL 25 MCG (1000 IU) TABLET PO SCH (08:50)
[2021-11-29] MEDS: ASCORBIC ACID 500 MG TAB PO SCH ×2 (08:50→20:52)
[2021-11-29] MEDS: CHOLESTYRAMINE (WITH SUGAR) 4 GM PACKET PO SCH ×2 (08:51→18:04)
[2021-11-29] MEDS: CARAFATE 1 GM/10 ML PO SCH ×4 (08:53→20:53)
[2021-11-29] MEDS: GABAPENTIN 100 MG CAP PO SCH ×2 (08:59→20:52)
[2021-11-29] MEDS ORDERED: SCOPOLAMINE 1 MG/72 HR PATCH TRANSDERM SCH (12:15)
[2021-11-29 12:27] LABS: Glucose,Whole Blood 84 mg/dL (75-99)
--- NOTE | 2021-11-29 13:04 | P.PN ---
Subjective Progress Note Date: 11/29/21 CHIEF COMPLAINT: Abdominal pain HISTORY OF PRESENT ILLNESS: Patient reports that she is feeling better today. Still reports some nausea. Patient doesn't feel ready for discharge yet. Patient will be seen by GI service today. Afebrile. Currently on a clear liquid diet. Patient seen and examined with Dr. moreno PHYSICAL EXAM: VITAL SIGNS: Reviewed. GENERAL: Well-developed in no acute distress. HEENT: No sclera icterus. Extraocular movements grossly intact. Moist buccal mucosa. Head is atraumatic, normocephalic. ABDOMEN: Soft. Nondistended. NEUROLOGIC: Alert and oriented. Cranial nerves II through XII grossly intact. ASSESSMENT: 1. Abdominal pain 2. Recent hospitalization with enteritis 3. History of multiple abdominal surgeries PLAN: -No surgical intervention planned -Await further GI recommendations -Continue clear liquid diet -Continue supportive care -Continue antiemetics -Encourage patient to ambulate Physician Cemetery Vault Installer note has been reviewed by physician. Signing provider agrees with the documented findings, assessment, and plan of care. Patient reports yohan t she is feeling better today. Still reports some nausea. Patient Objective - Vital Signs Vital signs: Vital Signs Temp 97.8 F 11/29/21 07:00 Pulse 74 11/29/21 07:00 Resp 16 11/29/21 08:49 BP 118/66 11/29/21 07:00 Pulse Ox 93 L 11/29/21 07:00 FiO2 Intake & Output 11/28/21 11/29/21 11/29/21 18:59 06:59 18:59 Intake Total 450 240 Balance 450 240 Intake: Oral 450 240 Other: Voiding Method Toilet Toilet Toilet # Voids 1 2 - Labs CBC & Chem 7: 11/28/21 07:00 11/28/21 07:00
--- NOTE | 2021-11-29 14:17 | P.CONS ---
History of Present Illness - Reason for Consult Consult date: 11/29/21 Nausea Requesting physician: Julia Batres - Chief Complaint Abdominal pain, nausea - History of Present Illness This is a 66-year-old female with recent hospitalization for enteritis and discharged on 11/21/2021. Patient was discharged home with antibiotics. Patient states that she felt well when she was discharged. And then over the last couple of days she started having the diffuse abdominal pain with nausea and diarrhea again. She reports no blood in her stools. She reports multiple episodes of diarrhea. Denies any fever chills or sweats. She reports the pain is across the upper abdomen. Patient did have an EGD in June 2021 that had shown mild antral gastritis. Last colonoscopy 2016 with reported normal colon. She's had EGD at the same time showing mild gastritis, another repeat EGD in 2019 showing mild gastritis. Patient has multiple abdominal surgeries. Surgical history includes an incarcerated incisional hernia with mesh and lysis of adhesions in June 2021. 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 She states that the nausea has been chronic, she has no associated vomiting. Abdominal pain is somewhat improved. Mostly in the left side. She's been afebrile. CT abdomen and pelvis with no acute findings. Review of Systems REVIEW OF SYSTEMS: CARDIOPULMONARY: No chest pain or shortness of breath. Gastrointestinal: Chronic abdominal pain. Nausea with no vomiting. No hematemesis, coffee-ground emesis. No rectal bleeding, or melena. Diarrhea. GENITOURINARY: No dysuria or hematuria. MUSCULOSKELETAL: Reports normal range of motion., Joint pain. SKIN: No rashes. No jaundice. ENDOCRINE: No chills, fevers. No excessive weight gain or loss. No polydipsia or polyuria. PSYCHIATRIC: Unremarkable. NEUROLOGY: No change in mental status. Denies dizziness, headache. ENT: Vision unremarkable. CONSTITUTIONAL: No recent weight loss. No fever, chills, night sweats. 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 bowel resection for obstruction, amalia cataracts, Past Anesthesia/Blood Transfusion Reactions: No Reported Reaction Past Psychological History: No Psychological Hx Reported Additional Psychological History / Comment(s): short term memory loss Smoking Status: Former smoker, Never smoker Past Alcohol Use History: Rare Additional Past Alcohol Use History / Comment(s): quit smoking 20 yrs ago, smoked for 20 yrs Past Drug Use History: None Reported - Past Family History Mother Family Medical History: Cancer, CVA/TIA, Deep Vein Thrombosis (DVT), Pulmonary Embolus Additional Family Medical History / Comment(s): breast cancer Father Family Medical History: CVA/TIA, Myocardial Infarction (ND) Additional Family Medical History / Comment(s): . Brother(s) Family Medical History: Congestive Heart Failure (CHF) Additional Family Medical History / Comment(s): CABG Medications and Allergies Home Medications Medication Instructions Recorded Confirmed Type Aspirin 81 mg PO DAILY 60 Days #60 chew 09/20/20 11/25/21 Rx Diclofenac Sodium Gel [Voltaren 4 gm TOPICAL QID PRN 07/04/21 11/25/21 History Gel] Omeprazole [PriLOSEC] 40 mg PO DAILY 07/04/21 11/25/21 History Topiramate [Topamax] 50 mg PO HS 07/04/21 11/25/21 History traZODone HCL [Desyrel] 100 mg PO HS 07/04/21 11/25/21 History Acetaminophen Tab [Tylenol] 650 mg PO Q6HR PRN tab 07/11/21 11/25/21 Rx Ascorbic Acid [Vitamin C] 500 mg PO BID tab 07/11/21 11/25/21 Rx Cholecalciferol [Vitamin D3 (25 100 mcg PO DAILY tablet 07/11/21 11/25/21 Rx Mcg = 1000 Iu)] Gabapentin [Neurontin] 100 mg PO BID #6 cap 07/28/21 11/25/21 Rx Clotrimazole Cream [Lotrimin Cream] 1 applic TOPICAL BID 11/12/21 11/25/21 History Pantoprazole Sodium [Protonix] 40 mg PO BID 11/12/21 11/25/21 History Sucralfate [Carafate] 1 gm PO QID 11/12/21 11/25/21 History hydrALAZINE HCL [Apresoline] 50 mg PO TID 11/12/21 11/25/21 History Atorvastatin [Lipitor] 40 mg PO DAILY #30 tab 11/21/21 11/25/21 Rx Cholestyramine (with Sugar) 4 gm PO BID@1000,1800 30 Days #60 11/21/21 11/25/21 Rx [Questran Packet] packet Loratadine [Claritin] 5 mg PO HS 30 Days #30 tab 11/21/21 11/25/21 Rx Metoprolol Tartrate [Lopressor] 50 mg PO BID #60 tab 11/21/21 11/25/21 Rx Amoxic-Pot Clav 875-125Mg 1 tab PO Q12HR 11/25/21 11/25/21 History [Augmentin 875-125] Allergies Allergy/AdvReac Type Severity Reaction Status Date / Time morphine Allergy Rash/Hives Verified 11/25/21 09:45 sulfamethoxazole Allergy ABD PAIN Verified 11/25/21 09:45 [From Bactrim] Physical Exam Vitals: Vital Signs Temp Pulse Resp BP Pulse Ox 11/29/21 07:00 97.8 F 74 16 118/66 93 L 11/29/21 01:32 98.2 F 59 L 16 125/67 93 L 11/28/21 19:44 98.1 F 75 17 126/65 93 L 11/28/21 15:00 97.9 F 66 18 107/60 95 11/28/21 13:49 18 11/28/21 08:54 18 Intake and Output 11/28/21 11/29/21 11/29/21 22:59 06:59 14:59 Intake Total 120 Balance 120 Intake: Oral 120 Other: Voiding Method Toilet Toilet # Voids 2 2 General appearance: The patient is alert, oriented, appears in no acute distre ss. HET: Head is normocephalic and atraumatic. Conjunctiva pink. Sclera anicteric. Neck: Supple without lymphadenopathy. Trachea midline. Heart: S1 S2. Regular rate and rhythm. Lungs: Clear to auscultation. Abdomen: Soft, diffuse tenderness to palpation. Nondistended with bowel sounds. No guarding or rigidity. Skin: No rashes. No jaundice. Extremities: Normal skin color and turgor. No pedal edema. Neurological: No focal deficits. Alert and oriented x3. Results CBC & Chem 7: 11/28/21 07:00 11/28/21 07:00 Labs: Abnormal Lab Results - Last 24 Hours (Table) 11/28/21 11/28/21 Range/Units 07:00 07:00 WBC 3.82 L (4.50-10.00) X 10*3/uL RBC 3.52 L (4.10-5.20) X 10*6/uL Hgb 10.6 L (12.0-15.0) g/dL Hct 34.5 L (37.2-46.3) % MCV 98.0 H (80.0-97.0) fL MCHC 30.7 L (32.0-37.0) g/dL RDW 16.1 H (11.5-14.5) % Carbon Dioxide 19.3 L (20.0-27.5) mmol/L Alkaline Phosphatase 132 H (41-126) U/L Total Protein 5.7 L (6.2-8.2) g/dL Albumin 3.5 L (3.8-4.9) g/dL Albumin/Globulin Ratio 1.54 L (1.60-3.17) g/dL Comments: CT abdomen and pelvis with contrast reports no bowel obstruction. No new or acute findings evident. Assessment and Plan (1) Nausea Narrative/Plan: 66-year-old female who presented for abdominal pain and chronic nausea. CT abdomen and pelvis shows no acute findings. Patient has a history of multiple abdominal surgeries done by Dr. Rangel. Most recently underwent EGD in June 2019 that showed mild gastritis. Last colonoscopy 2017 within normal colon. Unclear of the underlying etiology of nausea. Could be related to IBS. Patient was recently admitted and discharged on 11/21/2021 with questionable enteritis and discharged on Augmentin. Antibiotics could also be causing some underlying increased nausea. We'll also be doing stool testing for C. diff. Current Visit: No Status: Acute Code(s): R11.0 - NAUSEA SNOMED Code(s): 4 07192073 (2) Abdominal pain Current Visit: Yes Status: Acute Code(s): R10.9 - UNSPECIFIED ABDOMINAL PAIN SNOMED Code(s): 39511524 Plan: 1. Continue symptomatic and supportive care 2. Scopolamine patch ordered 3. Continue Protonix and Carafate 4. Continue Zofran as needed 5. Stool for C. diff ordered 6. No plans on endoscopic evaluation. Will await C. diff results and consider adding dicyclomine per patient. Thank you for this consultation, we will continue to follow. Dr. Pratibha Reeves I agree with the dictator's note, documented as a scribe by Lisandra Grigsby.
[2021-11-29 16:49] LABS: Glucose,Whole Blood 124 mg/dL (75-99)
[2021-11-29 20:37] LABS: Glucose,Whole Blood 120 mg/dL (75-99)
[2021-11-29] MEDS: LORATADINE 10 MG TAB PO SCH (20:52)
[2021-11-29] MEDS: traZODone HCL 100 MG TAB PO SCH (20:52)
[2021-11-29] MEDS: TOPIRAMATE 25 MG TAB PO SCH (20:52)
--- NOTE | 2021-11-29 22:45 | P.PN ---
Subjective Progress Note Date: 11/29/21 This is a 66 year old female who presents with abdominal pain, nausea. Patient today states she feels worse than yesterday. She is having ongoing nausea and states she has been unable to vomit which has been an ongoing issue since her hernia surgery. She was recently discharged on 11/15/21 for abdominal pain and nausea as well at that time she underwent evaluation by oncology for possible metastatic or reactive abdominal nodes, possible postoperative seroma, possible abscess as well as recurrent tiny hiatal hernia and she was also treated for mild enteritis and is currently finishing a course of antibiotic therapy with augmentin. She states pain is a 5/10 epigastric and wraps like a band around her stomach. She also reports loose brown stool over the last few days as well. She is being follow by general surgery and is on a clear liquid diet. She is on liquid carafate, protonix, and continues on IV fluids at 130 mls per hour. There is some abdominal tenderness with palpation. Labs today showing white count 3.82, hgb 10.6, alk phos 132. We will consult GI for evaluation as well, she was recommended to follow up outpatient from her last hospitalization. She was also instructed to follow up with oncology/hematology post discharge as well. 11/29/2021 Patient today states her nausea has improved somewhat. She reports no vomiting, tolerating full liquid diet. She continues with diarrhea, multiple episodes. Denies abdominal pain at the time of my examination. C.Dif is negative, stool cultures are pending at this time. Scopalamine patch has been ordered today. Augmentin is also discontinued now. She continues on zofran. General surgery and GI services are following patient. Continue with current treatment plan and await stool cultures. Review of Systems Constitutional: Denied any fatigue denied any fever. Cardio vascular: denied any chest pain, palpitations Gastrointestinal: Reports nausea, diarrhea Pulmonary: Denied any shortness of breath cough Neurologic denied any new focal deficits All inpatient medications were reviewed and appropriate changes in these medications as dictated in the interval history and assessment and plan. PHYSICAL EXAMINATION: GENERAL: The patient is alert and oriented x3, not in any acute distress. Well developed, well nourished. HEENT: Pupils are round and equally reacting to light. EOMI. No scleral icterus. No conjunctival pallor. Normocephalic, atraumatic. No pharyngeal erythema. No thyromegaly. CARDIOVASCULAR: S1 and S2 present. No murmurs, rubs, or gallops. PULMONARY: Chest is clear to auscultation, no wheezing or crackles. ABDOMEN: Soft, nondistended, normoactive bowel sounds. Tender to palpation. MUSCULOSKELETAL: No joint swelling or deformity. EXTREMITIES: No cyanosis, clubbing, or pedal edema. NEUROLOGICAL: Gross neurological examination did not reveal any focal deficits. SKIN: No rashes. Assessment and plan Assessment Abdominal pain with intractable nausea History of recurrent abdominal pain and nausea Ongoing diarrhea, C. Dif negative Status post incarcerated abdominal hernia repair with mesh and lysis of adhesions 07/08/2021 Chronic kidney disease stage 3 Gastroesophageal reflux disease Anemia, macrocytic - Vit B12 and folate checked previous admission and within normal limits Hypertension Diabetes Mellitus Type 2 Possble IBS, was supposed to follow up with GI outpatient Obesity GI Prophylaxis DVT Prophylaxis Plan Advanced to full liquid diet Started on scopalamine patch Augmentin discontinued Continue with pain management Continue with antiemetics Stool cultures are currently pending The impression and plan of care has been dictated by Julia Batres, Nurse Practitioner as directed. Dr. Trupti MD I have performed a history and physical examination and medical decision making of this patient, discussed the same with the dictator, and agree with the dictators assessment and plan as written, documented as a scribe. Based on total visit time, I have performed more than 50% of this visit. Objective - Vital Signs Vital signs: Vital Signs Temp 98.2 F 11/29/21 14:28 Pulse 74 11/29/21 14:28 Resp 16 11/29/21 14:28 BP 129/67 11/29/21 14:28 Pulse Ox 97 11/29/21 14:58 FiO2 Intake & Output 11/28/21 11/29/21 11/29/21 18:59 06:59 18:59 Intake Total 450 580 Balance 450 580 Intake: Oral 450 580 Other: Voiding Method Toilet Toilet Toilet # Voids 1 2 2 # Bowel Movements 3 - Labs CBC & Chem 7: 11/28/21 07:00 11/28/21 07:00 Assessment and Plan Time with Patient: Less than 30
[2021-11-30] MEDS: SODIUM CHLORIDE 0.9% 1,000 ML IV SCH (05:33)
[2021-11-30 07:31] LABS: Glucose,Whole Blood 89 mg/dL (75-99)
[2021-11-30 08:23] VITALS: BP 132/75; PULSE 71; RESP 18; TEMP 98.4
[2021-11-30] MEDS: GABAPENTIN 100 MG CAP PO SCH (09:35)
[2021-11-30] MEDS: ATORVASTATIN 40 MG TAB PO SCH (09:36)
[2021-11-30] MEDS: HEPARIN SODIUM,PORCINE/PF 5,000 UNIT/0.5 ML SYRINGE SQ SCH (09:36)
[2021-11-30] MEDS: CHOLECALCIFEROL 25 MCG (1000 IU) TABLET PO SCH (09:36)
[2021-11-30] MEDS: METOPROLOL TARTRATE 50 MG TAB PO SCH (09:36)
[2021-11-30] MEDS: ASPIRIN 81 MG PO SCH (09:36)
[2021-11-30] MEDS: PANTOPRAZOLE 40 MG/10 ML VIAL IVP SCH (09:36)
[2021-11-30] MEDS: ASCORBIC ACID 500 MG TAB PO SCH (09:36)
[2021-11-30] MEDS: CARAFATE 1 GM/10 ML PO SCH (09:37)
[2021-11-30] MEDS: hydrALAZINE HCL 50 MG TAB PO SCH (09:37)
[2021-11-30] MEDS: CHOLESTYRAMINE (WITH SUGAR) 4 GM PACKET PO SCH (09:37)
[2021-11-30] MEDS ORDERED: DICYCLOMINE 10 MG CAP PO PRN (10:37)
[2021-11-30 11:28] LABS: Basophils % (A) 1 %; Eosinophils # (A) 0.1 k/uL (0-0.7); Eosinophils % (A) 3 %; HGB 10.7 gm/dL (11.4-16.0); Hypochromasia Marked; Lymphocytes # (A) 0.7 k/uL (1.0-4.8); Lymphocytes % (A) 27 %; MCH 30.8 pg (25.0-35.0); MCHC 29.8 g/dL (31.0-37.0); MCV 103.3 fL (80.0-100.0); Macrocytosis Moderate; Monocytes # (A) 0.2 k/uL (0-1.0); Monocytes % (A) 7 %; Neutrophils # (A) 1.6 k/uL (1.3-7.7); Neutrophils % (A) 59 %; Platelet Count 263 k/uL (150-450); RBC 3.48 m/uL (3.80-5.40); WBC 2.6 k/uL (3.8-10.6)
[2021-11-30 11:41] LABS: African American GFR (CKD) 81 (>60 ml/min/1.73 sqM); Anion Gap 10 mmol/L; Blood Urea Nitrogen 7 mg/dL (7-17); Calcium 8.5 mg/dL (8.4-10.2); Carbon Dioxide 18 mmol/L (22-30); Chloride 110 mmol/L (98-107); Glucose 186 mg/dL (74-99); Non-African American GFR(CKD) 70 (>60 ml/min/1.73 sqM); Potassium 4.2 mmol/L (3.5-5.1); Sodium 138 mmol/L (137-145)
[2021-11-30 12:04] LABS: Glucose,Whole Blood 171 mg/dL (75-99)
--- NOTE | 2021-11-30 13:35 | P.PN ---
Subjective Progress Note Date: 11/30/21 CHIEF COMPLAINT: Abdominal pain HISTORY OF PRESENT ILLNESS: Patient is sitting at bedside chair. She reports that her abdominal pain has resolved. Her diarrhea has improved. Denies any nausea vomiting. She tolerated a full liquid diet. Stool for C. diff is negative. Afebrile. Patient reports that she feels ready for discharge. WBC 2.6 he will 10.7 sodium 1 4:03 0.2 creatinine 0.7 GI service has added Bentyl patient's abdominal discomfort. Patient seen and examined with Dr. moreno PHYSICAL EXAM: VITAL SIGNS: Reviewed. GENERAL: Well-developed in no acute distress. HEENT: No sclera icterus. Extraocular movements grossly intact. Moist buccal mucosa. Head is atraumatic, normocephalic. ABDOMEN: Soft. Nondistended. NEUROLOGIC: Alert and oriented. Cranial nerves II through XII grossly intact. ASSESSMENT: 1. Abdominal pain 2. Recent hospitalization with enteritis 3. History of multiple abdominal surgeries PLAN: -Patient can be discharged from surgical standpoint -Advance diet to regular -No surgical intervention planned Physician Buttonhole Machine Operator note has been reviewed by physician. Signing provider agrees with the documented findings, assessment, and plan of care. Patient reports that she is feeling better today. Still reports some nausea. Patient Objective - Vital Signs Vital signs: Vital Signs Temp 98.4 F 11/30/21 08:00 Pulse 71 11/30/21 08:00 Resp 18 11/30/21 08:00 BP 132/75 11/30/21 08:00 Pulse Ox 93 L 11/30/21 08:00 FiO2 Intake & Output 11/29/21 11/30/21 11/30/21 18:59 06:59 18:59 Intake Total 580 118 Balance 580 118 Weight 81.647 kg Intake: Oral 580 118 Other: Voiding Method Toilet Toilet # Voids 2 3 # Bowel Movements 3 - Labs CBC & Chem 7: 11/30/21 10:56 11/30/21 10:56 Labs: Abnormal Lab Results - Last 24 Hours (Table) 11/29/21 11/29/21 11/30/21 Range/Units 16:47 20:35 10:56 WBC 2.6 L (3.8-10.6) k/uL RBC 3.48 L (3.80-5.40) m/uL Hgb 10.7 L (11.4-16.0) gm/dL MCV 103.3 H (80.0-100.0) fL MCHC 29.8 L (31.0-37.0) g/dL Lymphocytes # 0.7 L (1.0-4.8) k/uL Chloride (98-107) mmol/L Carbon Dioxide (22-30) mmol/L Glucose (74-99) mg/dL POC Glucose (mg/dL) 124 H 120 H (75-99) mg/dL 11/30/21 11/30/21 Range/Units 10:56 12:03 WBC (3.8-10.6) k/uL RBC (3.80-5.40) m/uL Hgb (11.4-16.0) gm/dL MCV (80.0-100.0) fL MCHC (31.0-37.0) g/dL Lymphocytes # (1.0-4.8) k/uL Chloride 110 H (98-107) mmol/L Carbon Dioxide 18 L (22-30) mmol/L Glucose 186 H (74-99) mg/dL POC Glucose (mg/dL) 171 H (75-99) mg/dL Microbiology - Last 24 Hours (Table) 11/29/21 13:15 Stool Culture - Preliminary Stool
--- NOTE | 2021-11-30 15:27 | P.PN ---
Subjective Progress Note Date: 11/30/21 Principal diagnosis: Abdominal pain Patient is seen and examined today for follow-up for abdominal pain, diarrhea and nausea. Patient was started on a scopolamine patch yesterday for which she states has improved her nausea. States abdominal pain has improved. Plan is for discharge home today. C. diff was negative. Objective - Vital Signs Vital signs: Vital Signs Temp 98.4 F 11/30/21 08:00 Pulse 71 11/30/21 08:00 Resp 18 11/30/21 08:00 BP 132/75 11/30/21 08:00 Pulse Ox 93 L 11/30/21 08:00 FiO2 Intake & Output 11/29/21 11/30/21 11/30/21 18:59 06:59 18:59 Intake Total 580 118 Balance 580 118 Intake: Oral 580 118 Other: Voiding Method Toilet Toilet # Voids 2 3 # Bowel Movements 3 - Exam General appearance: The patient is alert, oriented, appears in no acute distress. HET: Head is normocephalic and atraumatic. Conjunctiva pink. Sclera anicteric. Neck: Supple without lymphadenopathy. Abdomen: Soft, nontender, nondistended with bowel sounds. No guarding or rigidity. Extremities: Normal skin color and turgor. No pedal edema Skin: No rashes, no jaundice Neurological: No focal deficits. Alert and oriented -3. - Labs CBC & Chem 7: 11/30/21 10:56 11/30/21 10:56 Labs: Abnormal Lab Results - Last 24 Hours (Table) 11/29/21 11/29/21 Range/Units 16:47 20:35 POC Glucose (mg/dL) 124 H 120 H (75-99) mg/dL Microbiology - Last 24 Hours (Table) 11/29/21 13:15 Stool Culture - Preliminary Stool Assessment and Plan (1) Nausea Narrative/Plan: 66-year-old female who presented for abdominal pain and chronic nausea. CT abdomen and pelvis shows no acute findings. Patient has a history of multiple abdominal surgeries done by Dr. Rangel. Most recently underwent EGD in June 2019 that showed mild gastritis. Last colonoscopy 2017 within normal colon. Unclear of the underlying etiology of nausea. Could be related to IBS. Patient was recently admitted and discharged on 11/21/2021 with questionable enteritis and discharged on Augmentin. Antibiotics could also be causing some underlying increased nausea. We'll also be doing stool testing for C. diff. Status: Acute Code(s): R11.0 - NAUSEA SNOMED Code(s): 941713944 (2) Abdominal pain Status: Acute Code(s): R10.9 - UNSPECIFIED ABDOMINAL PAIN SNOMED Code(s): 26214563 Plan: 1. Continue symptomatic and supportive care 2. Scopolamine patch ordered 3. Continue Protonix and Carafate 4. Continue Zofran as needed 5. Stool for C. diff ordered and negative 6. No plans on endoscopic evaluation 7. Dicyclomine 10 mg 4 times a day when necessary ordered Thank you for this consultation, the patient is cleared by gastroenterology for discharge. Follow-up in 2-[address] Pratibha Reeves I agree with the dictator's note, documented as a scribe by Lisandra Grigsby.
--- NOTE | 2021-11-30 22:46 | P.DS ---
Providers Date of admission: 11/28/21 09:49 Attending physician: Herbie Quiroga MD Consults: 11/25/21 09:16 Consult Physician Routine Consulting Provider: Reji Rangel Consult Reason/Comments: Vomiting, abdominal pain Do you want consulting provider notified?: Yes 11/28/21 15:01 Consult Physician Routine Consulting Provider: Ashlie Reeves Consult Reason/Comments: ongoing nausea, unable to vomit Do you want consulting provider notified?: Yes Primary care physician: Dmitry Lewis MD Hospital Course: Final Diagnosis Abdominal pain with intractable nausea History of recurrent abdominal pain and nausea Ongoing diarrhea, C. Dif negative Status post incarcerated abdominal hernia repair with mesh and lysis of adhesions 07/08/2021 Chronic kidney disease stage 3 Gastroesophageal reflux disease Anemia, macrocytic - Vit B12 and folate checked previous admission and within normal limits Hypertension Diabetes Mellitus Type 2 Nonpitting peripheral edema, per patient she might have lymphedema Possble IBS, was supposed to follow up with GI outpatient Obesity Discharge Disposition Patient is discharged home in stable condition. C. Dif is negative, and she reports abdominal pain and nausea are improving. She will be discharged on bentyl and follow up with Dr Jorge Luis Reeves in the office. Patient will also need to follow up with primary care in 1-2 days. She will repeat CBC in 2-3 days. Patient is agreeing with discharge plan. She will also need to follow up with oncology/ hematology as per previous admission. Recommend follow up urinalysis outpatient Hospital Course This is a 66 year old female who presents with abdominal pain, nausea. She was recently discharged on 11/15/21 for abdominal pain and nausea as well at that time she underwent evaluation by oncology for possible metastatic or reactive abdominal nodes, possible postoperative seroma, possible abscess as well as recurrent tiny hiatal hernia and she was also treated for mild enteritis and is currently finishing a course of antibiotic therapy with augmentin. Past medical history significant for coronary artery disease status post cardiac stenting, diabetes, GERD, hyperlipidemia, chronic kidney disease, hypertension, recurrent abdominal pain and nausea. On admission she states abdominal pain is 5/10 epigastric and wraps like a band around her stomach. She also reports loose brown stool over the last few days as well. Denies fever, denies chills. She denies dysuria, urgency or burning. She has been evaluated by general surgery and GI services. She is on liquid carafate, protonix, and received IV hydration with normal saline while inpatient. Patient was also on clear liquid diet which she did tolerate advanced diet today. Initially she had abdominal tenderness on palpation that has improved as well. C. dif was checked and was negative. Diagnostics on admission include; Abdominal xray showing possible left pleural effusion and atelectasis, possible underlying ileus or enteritis Abdominal pelvis CT showing no bowel obstruction, no new or acute findings as per previous CT 1 weeek ago. EKG showing normal sinus rhythm heart rate 77, QT interval 436, no ST or T wave changes Vital signs temp 98.5, heart rate 72, blood pressure 144/58, 96% on room air Labs on admission; white count 7.3, hgb 11.6, sodium 140, potassium 3.7, BUN 12, creat 0.91, glucose 160s, alk phos 193 Lipid panel showing triglycerides 143, cholesterol 151, LDL 78.2, HDL 44.20 Lipase 311, 81 AST ALT within normal limits Urinalysis showing cloudy urine, trace protein, small ketones, small blood, 1+ bili, moderate luekocyte esterase 11/30/2021 GI services has evaluated the patient and felt nausea is most likely chronic and related to multiple abdominal surgeries for hernia and hernia repair. Most recent surgery in June of this year. Patient is counseled on diet avoiding acidic, spicy foods. She will be started on bentyl as well. She will see GI in the office for monitoring of nausea, and further evaluation for most likely irritable bowel syndrome. Today denies chest pain, shortness of breath. Denies cough. Denies dizziness, lightheadedness. Denies nausea. Denies fever and chills. Her lungs are clear, S1 S2 auscultated, abdomen is soft and nontender. Focal neurological exam is negative. Most recent labs showing white count 3.82, hgb 10.6, platelet count 320, sodium 141, potassium 4.3, BUN 11.7, creat 1.0, gluocse 120, alk phos has improved to 132. Vital signs today temp 98.4, heart rate 71, blood pressure 132/75, 93% room air. Please see medication reconciliation for a list of current medications. Thank you for allowing us to participate in the care of this patient. The impression and plan of care has been dictated by Julia Batres Nurse Practitioner as directed. Dr. Trupti MD I have performed a history and physical examination and medical decision making of this patient, discussed the same with the dictator, and agree with the dictators assessment and plan as written, documented as a scribe. Based on total visit time, I have performed more than 50% of this visit. Patient Condition at Discharge: Fair Plan - Discharge Summary New Discharge Prescriptions: New Dicyclomine [Bentyl] 10 mg PO QID PRN #40 cap PRN Reason: Dyspepsia Continue Diclofenac Sodium Gel [Voltaren Gel] 4 gm TOPICAL QID PRN PRN Reason: Pain Omeprazole [PriLOSEC] 40 mg PO DAILY Topiramate [Topamax] 50 mg PO HS traZODone HCL [Desyrel] 100 mg PO HS Acetaminophen Tab [Tylenol] 650 mg PO Q6HR PRN tab PRN Reason: Fever and/ or MILD Pain Cholecalciferol [Vitamin D3 (25 Mcg = 1000 Iu)] 100 mcg PO DAILY tablet Gabapentin [Neurontin] 100 mg PO BID #6 cap hydrALAZINE HCL [Apresoline] 50 mg PO TID Pantoprazole Sodium [Protonix] 40 mg PO BID Sucralfate [Carafate] 1 gm PO QID Clotrimazole Cream [Lotrimin Cream] 1 applic TOPICAL BID Atorvastatin [Lipitor] 40 mg PO DAILY #30 tab Metoprolol Tartrate [Lopressor] 50 mg PO BID #60 tab Cholestyramine (with Sugar) [Questran Packet] 4 gm PO BID@1000,1800 30 Days #60 packet Aspirin 81 mg PO DAILY 60 Days #60 chew Ascorbic Acid [Vitamin C] 500 mg PO BID tab Loratadine [Claritin] 5 mg PO HS 30 Days #30 tab Discontinued Amoxic-Pot Clav 875-125Mg [Augmentin 875-125] 1 tab PO Q12HR Discharge Medication List Aspirin 81 mg PO DAILY 60 Days #60 chew 09/20/20 [Rx] Diclofenac Sodium Gel [Voltaren Gel] 4 gm TOPICAL QID PRN 07/04/21 [History] Omeprazole [PriLOSEC] 40 mg PO DAILY 07/04/21 [History] Topiramate [Topamax] 50 mg PO HS 07/04/21 [History] traZODone HCL [Desyrel] 100 mg PO HS 07/04/21 [History] Acetaminophen Tab [Tylenol] 650 mg PO Q6HR PRN tab 07/11/21 [Rx] Ascorbic Acid [Vitamin C] 500 mg PO BID tab 07/11/21 [Rx] Cholecalciferol [Vitamin D3 (25 Mcg = 1000 Iu)] 100 mcg PO DAILY tablet 07/11/21 [Rx] Gabapentin [Neurontin] 100 mg PO BID #6 cap 07/28/21 [Rx] Clotrimazole Cream [Lotrimin Cream] 1 applic TOPICAL BID 11/12/21 [History] Pantoprazole Sodium [Protonix] 40 mg PO BID 11/12/21 [History] Sucralfate [Carafate] 1 gm PO QID 11/12/21 [History] hydrALAZINE HCL [Apresoline] 50 mg PO TID 11/12/21 [History] Atorvastatin [Lipitor] 40 mg PO DAILY #30 tab 11/21/21 [Rx] Cholestyramine (with Sugar) [Questran Packet] 4 gm PO BID@1000,1800 30 Days #60 packet 11/21/21 [Rx] Loratadine [Claritin] 5 mg PO HS 30 Days #30 tab 11/21/21 [Rx] Metoprolol Tartrate [Lopressor] 50 mg PO BID #60 tab 11/21/21 [Rx] Dicyclomine [Bentyl] 10 mg PO QID PRN #40 cap 11/30/21 [Rx] Follow up Appointment(s)/Referral(s): Dmitry Lewis MD [Primary Care Provider] - 1-2 days Ashlie Reeves MD [STAFF PHYSICIAN] - 4 Weeks Ambulatory/Diagnostic Orders: Complete Blood Count w/diff [LAB.AMB] Time Frame: 2 Days, Location: None Selected Patient Instructions/Handouts: Irritable Bowel Syndrome (DC), Abdominal Pain (ED) Activity/Diet/Wound Care/Special Instructions: Patient educated on diet for chronic nausea Avoid acidic foods, avoid coffee, teas Continue on bentyl for diarrhea Follow up with Dr Jorge Luis Reeves Discharge Disposition: HOME SELF-CARE
== END 2021-11-30 13:20 | disposition home or self-care (01) | DRG 392 ==
LOC: EC 00:52 → 6NMEDSUR 09:17 → OBSVTOIN 11-28 09:49
PROVIDERS: ADMIT Internal Medicine; ATTEND Internal Medicine
DX: K58.0 Irritable bowel syndrome with diarrhea (principal); E11.22 Type 2 diabetes mellitus with diabetic chronic kidney disease; E11.51 Type 2 diabetes mellitus with diabetic peripheral angiopathy without gangrene; E78.5 Hyperlipidemia, unspecified; I25.10 Atherosclerotic heart disease of native coronary artery without angina pectoris; I12.9 Hypertensive chronic kidney disease with stage 1 through stage 4 chronic kidney disease, or unspecified chronic kidney disease; K21.9 Gastro-esophageal reflux disease without esophagitis; G89.29 Other chronic pain; K29.70 Gastritis, unspecified, without bleeding; N18.30 Chronic kidney disease, stage 3 unspecified; E66.9 Obesity, unspecified; Z79.82 Long term (current) use of aspirin; Z79.899 Other long term (current) drug therapy; Z95.5 Presence of coronary angioplasty implant and graft; Z87.891 Personal history of nicotine dependence; Z98.890 Other specified postprocedural states; Z88.5 Allergy status to narcotic agent; Z68.36 Body mass index [BMI] 36.0-36.9, adult; Z90.49 Acquired absence of other specified parts of digestive tract; Z82.49 Family history of ischemic heart disease and other diseases of the circulatory system; Z82.3 Family history of stroke; Z80.3 Family history of malignant neoplasm of breast
CPT/HCPCS: 36415; 74022; 74177; 80048; 80053; 80061; 81001; 82150; 83690; 84484; 85025; 86140; 87045; 87046; 87324; 96374; 96375; 96376; 99285

== ENCOUNTER → 2021-12-23 | Outpatient (CLI) | payer MEDICARE ==
[2021-12-23 19:04] LABS: Basophils # (A) 0.06 X 10*3/uL (0.00-0.10); Basophils % (A) 1.1 %; Eosinophils % (A) 1.8 %; HCT 41.9 % (37.2-46.3); HGB 12.8 g/dL (12.0-15.0); Immature Grans, Automated 0.4 %; Lymphocytes # (A) 1.42 X 10*3/uL (0.90-5.00); Lymphocytes % (A) 25.2 %; MCHC 30.5 g/dL (32.0-37.0); MCV 98.1 fL (80.0-97.0); Mean Platelet Volume 10.6 fL (9.5-12.2); Monocytes # (A) 0.44 X 10*3/uL (0.20-1.00); Monocytes % (A) 7.8 %; NRBC Per 100 WBC 0 /100 WBCS (0.0-0.0); Neutrophils % (A) 63.7 %; Platelet Count 306 X 10*3/uL (140-440); RBC 4.27 X 10*6/uL (4.10-5.20); RDW 14.5 % (11.5-14.5); WBC 5.64 X 10*3/uL (4.50-10.00)
== END | disposition home or self-care (01) ==
LOC: LABWHC1 12:54
PROVIDERS: ATTEND Nurse Practitioner Family
DX: D64.9 Anemia, unspecified (principal)
CPT/HCPCS: 36415; 85025

== ENCOUNTER 2022-04-21 13:53 | Emergency (ER) | payer MEDICARE ==
[2022-04-21 14:44] VITALS: RESP 16
[2022-04-21 16:22] LABS: Appearance,Urine Cloudy (Clear); Bacteria,Urine Rare /hpf; Bilirubin,Urine Negative (Negative); Blood,Urine Negative (Negative); Color,Urine Yellow; Glucose,Urine (UA) Negative (Negative); Hyaline Casts,Urine 8 /lpf (0-2); Ketones,Urine Negative (Negative); Leukocyte Esterase,Urine Large (Negative); Mucus,Urine Rare /hpf; Nitrite,Urine Negative (Negative); Protein,Urine Trace (Negative); RBC,Urine 3 /hpf (0-5); Specific Gravity,Urine 1.026 (1.001-1.035); Squamous Epithelial Cell,Urine 4 /hpf (0-4); Urobilinogen,Urine <2.0 mg/dL (<2.0); WBC,Urine 34 /hpf (0-5)
[2022-04-21] MEDS ORDERED: KETOROLAC 15 MG/ML 1 ML VIAL IVP STA (16:33)
[2022-04-21 17:22] LABS: Basophils # (A) 0.1 k/uL (0-0.2); Basophils % (A) 1 %; Eosinophils # (A) 0.1 k/uL (0-0.7); Eosinophils % (A) 2 %; HCT 40.1 % (34.0-46.0); HGB 12.9 gm/dL (11.4-16.0); Hypochromasia Slight; Lymphocytes # (A) 1.4 k/uL (1.0-4.8); Lymphocytes % (A) 28 %; MCH 30.2 pg (25.0-35.0); MCV 94.3 fL (80.0-100.0); Mean Platelet Volume 8.2; Monocytes # (A) 0.2 k/uL (0-1.0); Monocytes % (A) 4 %; Neutrophils # (A) 3.1 k/uL (1.3-7.7); Neutrophils % (A) 62 %; Platelet Count 242 k/uL (150-450); RBC 4.25 m/uL (3.80-5.40); RDW 13.6 % (11.5-15.5); WBC 4.9 k/uL (3.8-10.6)
[2022-04-21 17:59] LABS: Potassium 4.4 mmol/L (3.5-5.1)
[2022-04-21 18:00] LABS: Calcium 9.2 mg/dL (8.4-10.2)
[2022-04-21] MEDS ORDERED: cefTRIAXone IN SWFI 1,000 MG/10 ML SYRINGE IVP STA (18:20)
--- NOTE | 2022-04-21 18:23 | ED ---
General Adult HPI - General Chief complaint: Abdominal Pain Stated complaint: kidney infection Time Seen by Provider: 04/21/22 16:20 Source: patient, RN notes reviewed, old records reviewed Mode of arrival: ambulatory Limitations: no limitations - History of Present Illness Initial comments: Patient is a 67 year old female who presents emergency Department complaining of lower back pain with concern for UTI. States prior symptoms of UTI presented like this. Has not noticed armand dysuria. Has not noticed hematuria. Denies any fevers or chills. Denies any other abdominal pain, nausea, vomiting. No history kidney stones. States symptoms have been present for multiple weeks. Is seeking workup for UTI. - Related Data Home Medications Medication Instructions Recorded Confirmed Diclofenac Sodium Gel [Voltaren 4 gm TOPICAL QID PRN 07/04/21 11/25/21 Gel] Omeprazole [PriLOSEC] 40 mg PO DAILY 07/04/21 11/25/21 Topiramate [Topamax] 50 mg PO HS 07/04/21 11/25/21 traZODone HCL [Desyrel] 100 mg PO HS 07/04/21 11/25/21 Clotrimazole Cream [Lotrimin Cream] 1 applic TOPICAL BID 11/12/21 11/25/21 Pantoprazole Sodium [Protonix] 40 mg PO BID 11/12/21 11/25/21 Sucralfate [Carafate] 1 gm PO QID 11/12/21 11/25/21 hydrALAZINE HCL [Apresoline] 50 mg PO TID 11/12/21 11/25/21 Previous Rx's Medication Instructions Recorded Aspirin 81 mg PO DAILY 60 Days #60 chew 09/20/20 Acetaminophen Tab [Tylenol] 650 mg PO Q6HR PRN tab 07/11/21 Ascorbic Acid [Vitamin C] 500 mg PO BID tab 07/11/21 Cholecalciferol [Vitamin D3 (25 100 mcg PO DAILY tablet 07/11/21 Mcg = 1000 Iu)] Gabapentin [Neurontin] 100 mg PO BID #6 cap 07/28/21 Atorvastatin [Lipitor] 40 mg PO DAILY #30 tab 11/21/21 Cholestyramine (with Sugar) 4 gm PO BID@1000,1800 30 Days #60 11/21/21 [Questran Packet] packet Loratadine [Claritin] 5 mg PO HS 30 Days #30 tab 11/21/21 Metoprolol Tartrate [Lopressor] 50 mg PO BID #60 tab 11/21/21 Dicyclomine [Bentyl] 10 mg PO QID PRN #40 cap 11/30/21 Cephalexin [Keflex] 500 mg PO Q12HR 5 Days #10 cap 04/21/22 Allergies Allergy/AdvReac Type Severity Reaction Status Date / Time morphine Allergy Rash/Hives Verified 04/21/22 14:44 sulfamethoxazole Allergy ABD PAIN Verified 04/21/22 14:44 [From Bactrim] Review of Systems ROS Statement: Those systems with pertinent positive or pertinent negative responses have been documented in the HPI. Review of Systems: CONST: Denies fever EYES: Denies blurry vision ENT: Denies nasal congestion C/V: Denies Chest pain RESP: Denies shortness of breath GI: Denies abdominal pain : Denies dysuria SKIN: Denies rash. MSK: Denies joint pain. NEURO: Denies headache ROS Other: All systems not noted in ROS Statement are negative. 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 bowel resection for obstruction, amalia cataracts, Past Anesthesia/Blood Transfusion Reactions: No Reported Reaction Past Psychological History: No Psychological Hx Reported Smoking Status: Former smoker Past Alcohol Use History: None Reported Past Drug Use History: None Reported - Past Family History Mother Family Medical History: Cancer, CVA/TIA, Pulmonary Embolus Additional Family Medical History / Comment(s): breast cancer Father Family Medical History: CVA/TIA, Myocardial Infarction ([place]) Additional Family Medical History / Comment(s): . Brother(s) Family Medical History: Congestive Heart Failure (CHF) Additional Family Medical History / Comment(s): CABG General Exam - General Exam Comments Initial Comments: General: Appears in no acute distress. HEAD: Normal with no signs of head trauma. EYES: PERRLA, EOMI, conjunctiva normal, no discharge. ENT: Hearing grossly intact, normal oropharynx. RESPIRATORY: Clear breath sounds bilaterally. No wheezes, rales, or rhonchi. C/V: Regular rate and rhythm. S1 and S2 auscultated, no edema, peripheral pulses 2+ and intact throughout ABD: Abd is soft, nontender, nondistended EXT: Patient does have bilateral lower paraspinal muscle tenderness of the lumbar spine. Does not radiate. Somewhat tender on palpation. Not reproducible with movement. SKIN: No rashes or lesions observed on exposed skin. NEURO: Alert and oriented 4. Limitations: no limitations Course Vital Signs 04/21/22 04/21/22 04/21/22 14:42 16:45 18:37 Temperature 98.2 F 97.0 F L Pulse Rate 77 67 69 Respiratory 16 16 16 Rate Blood Pressure 124/82 144/80 139/93 O2 Sat by Pulse 97 100 100 Oximetry Medical Decision Making - Medical Decision Making Based on the patient's presentation and physical exam, I'm concerned for possible UTI or kidney infection the patient. She states her symptoms are typical for UTIs. Is seeking urinalysis. She states she does have a history of pyelonephritis, and therefore I will also obtain basic laboratory studies. She is comfortable at this time but accepts Toradol, vital signs within acceptable limits. Lavatory studies are remarkable for findings concerning of possible early UTI, she does have leukocyte esterase with white blood cells present. It is cloudy as well. Laboratory studies otherwise are relatively unremarkable. She does have a slightly elevated creatinine 1.30, however this does appear somewhat chronic. I discussed results with the patient. I explained that she may have early signs of UTI. We both agreed that we will empirically treat at this time with Keflex as these are typical symptoms for her UTIs in the past. She was in agreement this plan. She'll be given a dose of Rocephin prior to discharge. I will provide the patient with a prescription for Keflex. I instructed the patient to follow up with their PCP in the next 1-3 days. I explained that the patient should return to the emergency department if they experience any worsening symptoms. Strict return precautions were discussed with the patient. The patient expressed understanding of these instructions. I answered all questions that the patient had. The patient was discharged home in good condition with their prescriptions and follow up information. - Lab Data Result diagrams: 04/21/22 17:10 04/21/22 17:38 Lab Results 04/21/22 04/21/22 04/21/22 Range/Units 14:55 17:10 17:38 WBC 4.9 (3.8-10.6) k/uL RBC 4.25 (3.80-5.40) m/uL Hgb 12.9 (11.4-16.0) gm/dL Hct 40.1 (34.0-46.0) % MCV 94.3 (80.0-100.0) fL MCH 30.2 (25.0-35.0) pg MCHC 32.0 (31.0-37.0) g/dL RDW 13.6 (11.5-15.5) % Plt Count 242 (150-450) k/uL MPV 8.2 Neutrophils % 62 % Lymphocytes % 28 % Monocytes % 4 % Eosinophils % 2 % Basophils % 1 % Neutrophils # 3.1 (1.3-7.7) k/uL Lymphocytes # 1.4 (1.0-4.8) k/uL Monocytes # 0.2 (0-1.0) k/uL Eosinophils # 0.1 (0-0.7) k/uL Basophils # 0.1 (0-0.2) k/uL Hypochromasia Slight Sodium 139 (137-145) mmol/L Potassium 4.4 (3.5-5.1) mmol/L Chloride 107 (98-107) mmol/L Carbon Dioxide 22 (22-30) mmol/L Anion Gap 10 mmol/L BUN 29 H (7-17) mg/dL Creatinine 1.30 H (0.52-1.04) mg/dL Est GFR (CKD-EPI)AfAm 50 (>60 ml/min/1.73 sqM) Est GFR (CKD-EPI)NonAf 43 (>60 ml/min/1.73 sqM) Glucose 158 H (74-99) mg/dL Calcium 9.2 (8.4-10.2) mg/dL Urine Color Yellow Urine Appearance Cloudy H (Clear) Urine pH 5.0 (5.0-8.0) Ur Specific [place] 1.026 (1.001-1.035) Urine Protein Trace H (Negative) Urine Glucose (UA) Negative (Negative) Urine Ketones Negative (Negative) Urine Blood Negative (Negative) Urine Nitrite Negative (Negative) Urine Bilirubin Negative (Negative) Urine Urobilinogen <2.0 (<2.0) mg/dL Ur Leukocyte Esterase Large H (Negative) Urine RBC 3 (0-5) /hpf Urine WBC 34 H (0-5) /hpf Ur Squamous Epith Cells 4 (0-4) /hpf Urine Bacteria Rare H (None) /hpf Hyaline Casts 8 H (0-2) /lpf Urine Mucus Rare H (None) /hpf Disposition Clinical Impression: UTI (urinary tract infection) Disposition: HOME SELF-CARE Condition: Good Instructions (If sedation given, give patient instructions): Urinary Tract Infection in Women (DC) Prescriptions: Cephalexin [Keflex] 500 mg PO Q12HR 5 Days #10 cap Is patient prescribed a controlled substance at d/c from ED?: No Referrals: Dmitry Lewis MD [Primary Care Provider] - 1-2 days Time of Disposition: 18:10
[2022-04-21 18:37] VITALS: BP 139/93; PULSE 69; TEMP 97
== END 2022-04-21 18:42 | disposition home or self-care (01) ==
LOC: EC 13:53
DX: N39.0 Urinary tract infection, site not specified (principal); I25.10 Atherosclerotic heart disease of native coronary artery without angina pectoris; E11.9 Type 2 diabetes mellitus without complications; K21.9 Gastro-esophageal reflux disease without esophagitis; E78.5 Hyperlipidemia, unspecified; M19.90 Unspecified osteoarthritis, unspecified site; N18.9 Chronic kidney disease, unspecified; Z87.891 Personal history of nicotine dependence; Z88.2 Allergy status to sulfonamides; Z88.8 Allergy status to other drugs, medicaments and biological substances; Z79.82 Long term (current) use of aspirin; Z79.899 Other long term (current) drug therapy
CPT/HCPCS: 36415; 80048; 85025; 81001; 87086; 99284; 96374; 96375; J0696; J1885

== ENCOUNTER 2023-04-23 20:46 | Observation (INO) | payer MEDICARE ==
--- NOTE | 2023-04-23 21:00 | ED ---
Abdominal Pain HPI - General Source: patient Mode of arrival: ambulatory Limitations: no limitations <Ana Luisa Mcadams - Last Filed: 04/23/23 20:59> - History of Present Illness MD Complaint: abdominal pain Onset/Timin -: days(s) Location: LUQ, RUQ, epigastric Radiation: none Migration to: no migration Severity: moderate Quality: cramping, sharp Consistency: colicky Improves With: nothing Worsens With: nothing Associated Symptoms: nausea <Jose G Bright - Last Filed: 04/30/23 19:57> - General Stated Complaint: Abdominal Pain, Leg Swelling Time Seen by Provider: 04/23/23 20:59 - History of Present Illness Initial Comments: Patient is a 68-year-old female who presents the emergency department for epigastric pain and leg swelling for 2 days. (Ana Luisa Mcadams) - Related Data Home Medications Medication Instructions Recorded Confirmed Pantoprazole Sodium [Protonix] 40 mg PO BID 11/12/21 04/24/23 Glimepiride [Amaryl] 2 mg PO DAILY 04/24/23 04/24/23 Losartan [Cozaar] 50 mg PO DAILY 04/24/23 04/24/23 Metoprolol Succinate (ER) [Toprol 25 mg PO DAILY 04/24/23 04/24/23 XL] Pioglitazone [Actos] 15 mg PO DAILY 04/24/23 04/24/23 Triamcinolone 0.1% Cream [Kenalog 1 applic TOPICAL BID 04/24/23 04/24/23 0.1% Cream] rOPINIRole HCL 0.25 mg PO HS 04/24/23 04/24/23 Previous Rx's Medication Instructions Recorded Gabapentin [Neurontin] 100 mg PO BID #6 cap 07/28/21 Allergies Allergy/AdvReac Type Severity Reaction Status Date / Time morphine Allergy Rash/Hives Verified 04/24/23 09:22 sulfamethoxazole AdvReac Abdominal Verified 04/24/23 09:22 [From Bactrim] Pain trimethoprim [From Bactrim] AdvReac Abdominal Verified 04/24/23 09:22 Pain Review of Systems ROS Other: All systems not noted in ROS Statement are negative. <Ana Luisa Mcadams - Last Filed: 04/23/23 20:59> ROS Other: All systems not noted in ROS Statement are negative. Constitutional: Denies: fever, chills Respiratory: Denies: cough, dyspnea Cardiovascular: Denies: chest pain, palpitations, edema Gastrointestinal: Reports: abdominal pain, nausea Genitourinary: Denies: dysuria, hematuria Musculoskeletal: Denies: back pain Skin: Denies: rash Neurological: Denies: headache, weakness, numbness <Jose G Bright - Last Filed: 04/30/23 19:57> ROS Statement: Those systems with pertinent positive or pertinent negative responses have been documented in the HPI. 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 bowel resection for obstruction, amalia cataracts, Past Anesthesia/Blood Transfusion Reactions: No Reported Reaction Past Psychological History: No Psychological Hx Reported Smoking Status: Former smoker Past Alcohol Use History: None Reported Past Drug Use History: None Reported - Past Family History Mother Family Medical History: Cancer, CVA/TIA, Pulmonary Embolus Additional Family Medical History / Comment(s): breast cancer Father Family Medical History: CVA/TIA, Myocardial Infarction ([place]) Additional Family Medical History / Comment(s): . Brother(s) Family Medical History: Congestive Heart Failure (CHF) Additional Family Medical History / Comment(s): CABG <Ana Luisa Mcadams - Last Filed: 04/23/23 20:59> General Exam Limitations: no limitations <Ana Luisa Mcadams - Last Filed: 04/23/23 20:59> General appearance: alert, in no apparent distress Head exam: Present: atraumatic, normocephalic Eye exam: Present: normal appearance. Absent: scleral icterus, conjunctival injection Neck exam: Present: normal inspection Respiratory exam: Present: normal lung sounds bilaterally. Absent: respiratory distress, wheezes, rales, rhonchi, stridor Cardiovascular Exam: Present: regular rate, normal rhythm, normal heart sounds. Absent: systolic murmur, diastolic murmur, rubs, gallop GI/Abdominal exam: Present: soft, tenderness (There is mild upper abdominal tenderness without rebound or guarding). Absent: distended, guarding, rebound, rigid, mass, pulsatile mass, hernia Extremities exam: Present: normal inspection, normal capillary refill. Absent: pedal edema, calf tenderness Back exam: Present: normal inspection. Absent: CVA tenderness (R), CVA tenderness (L) Neurological exam: Present: alert Skin exam: Present: warm, dry, intact, normal color. Absent: rash <Jose G Bright - Last Filed: 04/30/23 19:57> - General Exam Comments Initial Comments: Visual Physical Exam Vital signs reviewed General: Well-appearing, nontoxic, no acute distress. Head: Normocephalic, atraumatic Eyes: PERRLA, EOMI ENT: Airway patent Chest: Nonlabored breathing Skin: No visual rash, normal skin tone Neuro: Alert and oriented 3 Musculoskeletal: edematous b/l lower extremities (Pema,Ana Luisa) Course Vital Signs 04/23/23 04/24/23 04/24/23 20:54 02:33 02:40 Temperature 97.7 F 98.6 F Pulse Rate 88 89 Respiratory 20 Rate Blood Pressure 159/63 179/84 O2 Sat by Pulse 98 98 98 Oximetry 04/24/23 04/24/23 04/24/23 03:00 04:00 05:00 Temperature Pulse Rate Respiratory Rate Blood Pressure 179/84 159/69 159/73 O2 Sat by Pulse 96 Oximetry 04/24/23 04/24/23 04/24/23 06:00 06:18 09:00 Temperature 98.4 F 98.2 F 96.8 F L Pulse Rate 86 90 88 Respiratory 18 18 20 Rate Blood Pressure 158/76 164/76 172/77 O2 Sat by Pulse 88 L 97 Oximetry 04/24/23 04/24/23 04/24/23 10:52 13:00 14:00 Temperature 98 F Pulse Rate 88 83 93 Respiratory 20 20 20 Rate Blood Pressure 176/85 149/83 157/67 O2 Sat by Pulse 98 95 95 Oximetry 04/24/23 04/24/23 04/24/23 15:00 15:49 17:00 Temperature Pulse Rate 98 92 89 Respiratory 22 20 20 Rate Blood Pressure 191/99 190/90 170/85 O2 Sat by Pulse 98 98 98 Oximetry 04/24/23 18:09 Temperature Pulse Rate 88 Respiratory 20 Rate Blood Pressure 168/86 O2 Sat by Pulse 98 Oximetry Medical Decision Making <Ana Luisa Mcadams - Last Filed: 04/23/23 20:59> - Lab Data Result diagrams: 04/23/23 21:35 04/25/23 06:15 - EKG Data -: EKG Interpreted by Me EKG shows normal: sinus rhythm, axis (Normal), intervals (Normal), ST-T waves (Normal) Rate: normal (Rate 73 bpm) <Jose G Bright - Last Filed: 04/30/23 19:57> - Medical Decision Making I performed the QuickNote portion of this chart - Ana Luisa Mcadams PA-C (Ana Luisa Mcadams) Patient is 68-year-old woman here for abdominal pain. The patient does have tenderness and is sent for computed tomography scan. I interpreted the computed tomography scan as showing dilated bowel consistent with obstruction. Was pt. sent in by a medical professional or institution ([facility], JOINERY MACHINIST, urgent care, hospital, or snf...) When possible be specific @ -[No] Did you speak to anyone other than the patient for history (EMS, parent, family, police, friend...)? What history was obtained from this source @ -[No] Did you review nursing and triage notes (agree or disagree)? Why? @ -[I reviewed and agree with nursing and triage notes] Were old charts reviewed (outside hosp., previous admission, EMS record, old EKG, old radiological studies, urgent care reports/EKG's, snf records)? Report findings @ -[No old charts were reviewed] Differential Diagnosis (chest pain, altered mental status, abdominal pain women, abdominal pain men, vaginal bleeding, weakness, fever, dyspnea, syncope, headache, dizziness, GI bleed, back pain, seizure, CVA, palpatations, mental health, musculoskeletal)? @ -[Differential Abdominal Pain Women: Appendicitis, Cholecystitis, diverticulosis, ischemic bowel, pancreatitis, hepatitis, UTI, gastroenteritis, AAA, incarcerated hernia, bowel obstruction, constipation, inflammatory bowel, hepatitis, peptic ulcer disease, splenic infarction, perforated viscus, vulvitis, ovarian torsion, PID, kidney stone, placenta abruption, this is not meant to be an all-inclusive list EKG interpreted by me (3pts min.). @ -[As above] X-rays interpreted by me (1pt min.). @ -[None done] CT interpreted by me (1pt min.). @ -[I interpreted as above U/S interpreted by me (1pt. min.). @ -[None done] What testing was considered but not performed or refused? (CT, X-rays, U/S, labs)? Why? @ -[None] What meds were considered but not given or refused? Why? @ -[None] Did you discuss the management of the patient with other professionals (professionals i.e. , PA, JOINERY MACHINIST, lab, RT, psych nurse, social media director, qa test lead, teacher, transit authority police officer, skilled nursing case manager)? Give summary @ -[Case discussed with admitting physician and treatment recommendations incorporated Was smoking cessation discussed for >3mins.? @ -[No] Was critical care preformed (if so, how long)? @ -[No] Were there social determinants of health that impacted care today? How? (Homelessness, low income, unemployed, alcoholism, drug addiction, transportation, low edu. Level, literacy, decrease access to med. care, senior care, rehab)? @ -[No] Was there de-escalation of care discussed even if they declined (Discuss DNR or withdrawal of care, Hospice)? DNR status @ -[No] What co-morbidities impacted this encounter? (DM, HTN, Smoking, COPD, CAD, Cancer, CVA, ARF, Chemo, Hep., AIDS, mental health diagnosis, sleep apnea, morbid obesity)? @ -[None] Was patient admitted / discharged? Hospital course, mention meds given and route, prescriptions, significant lab abnormalities, going to OR and other pertinent info. @ -[Patient with abdominal pain, found to have bowel obstruction, will be admitted to have surgical consultation. Undiagnosed new problem with uncertain prognosis? @ -[No] Drug Therapy requiring intensive monitoring for toxicity (Heparin, Nitro, Insulin, Cardizem)? @ -[No] Were any procedures done? @ -[No] Diagnosis/symptom? @ -[Acute abdominal pain Acute small bowel obstruction Acute, or Chronic, or Acute on Chronic? @ -Acute Uncomplicated (without systemic symptoms) or Complicated (systemic symptoms)? @ -[Uncomplicated Side effects of treatment? @ -[No] Exacerbation, Progression, or Severe Exacerbation? @ -[No] Poses a threat to life or bodily function? How? (Chest pain, [place], [place], pneumonia, PE, COPD, DKA, ARF, appy, cholecystitis, CVA, Diverticulitis, Homicidal, Suicidal, threat to staff... and all critical care pts) @ -[Yes, small bowel obstruction may progress and require surgery (Jose G Bright) - Lab Data Lab Results 04/23/23 04/23/23 04/23/23 Range/Units 21:35 21:35 21:35 WBC 5.2 (3.8-10.6) k/uL RBC 3.83 (3.80-5.40) m/uL Hgb 10.7 L (11.4-16.0) gm/dL Hct 34.5 (34.0-46.0) % MCV 90.2 (80.0-100.0) fL MCH 28.1 (25.0-35.0) pg MCHC 31.1 (31.0-37.0) g/dL RDW 15.6 H (11.5-15.5) % Plt Count 323 (150-450) k/uL MPV 8.1 Neutrophils % 58 % Lymphocytes % 29 % Monocytes % 6 % Eosinophils % 4 % Basophils % 1 % Neutrophils # 3.0 (1.3-7.7) k/uL Lymphocytes # 1.5 (1.0-4.8) k/uL Monocytes # 0.3 (0-1.0) k/uL Eosinophils # 0.2 (0-0.7) k/uL Basophils # 0.1 (0-0.2) k/uL Hypochromasia Slight Sodium 143 (137-145) mmol/L Potassium 4.8 (3.5-5.1) mmol/L Chloride 109 H (98-107) mmol/L Carbon Dioxide 23 (22-30) mmol/L Anion Gap 11 mmol/L BUN 26 H (7-17) mg/dL Creatinine 1.37 H (0.52-1.04) mg/dL Est GFR (CKD-EPI)AfAm 46 (>60 ml/min/1.73 sqM) Est GFR (CKD-EPI)NonAf 40 (>60 ml/min/1.73 sqM) Glucose 144 H (74-99) mg/dL Plasma Lactic Acid [place] (0.7-2.0) mmol/L Calcium 9.2 (8.4-10.2) mg/dL Total Bilirubin 0.4 (0.2-1.3) mg/dL AST 30 (14-36) U/L ALT 22 (4-34) U/L Alkaline Phosphatase 120 (38-126) U/L Troponin I <0.012 (0.000-0.034) ng/mL NT-Pro-B Natriuret Pep 502 pg/mL Total Protein 7.5 (6.3-8.2) g/dL Albumin 4.2 (3.5-5.0) g/dL Lipase 140 (23-300) U/L 04/23/23 Range/Units 23:00 WBC (3.8-10.6) k/uL RBC (3.80-5.40) m/uL Hgb (11.4-16.0) gm/dL Hct (34.0-46.0) % MCV (80.0-100.0) fL MCH (25.0-35.0) pg MCHC (31.0-37.0) g/dL RDW (11.5-15.5) % Plt Count (150-450) k/uL MPV Neutrophils % % Lymphocytes % % Monocytes % % Eosinophils % % Basophils % % Neutrophils # (1.3-7.7) k/uL Lymphocytes # (1.0-4.8) k/uL Monocytes # (0-1.0) k/uL Eosinophils # (0-0.7) k/uL Basophils # (0-0.2) k/uL Hypochromasia Sodium (137-145) mmol/L Potassium (3.5-5.1) mmol/L Chloride (98-107) mmol/L Carbon Dioxide (22-30) mmol/L Anion Gap mmol/L BUN (7-17) mg/dL Creatinine (0.52-1.04) mg/dL Est GFR (CKD-EPI)AfAm (>60 ml/min/1.73 sqM) Est GFR (CKD-EPI)NonAf (>60 ml/min/1.73 sqM) Glucose (74-99) mg/dL Plasma Lactic Acid [place] 1.4 (0.7-2.0) mmol/L Calcium (8.4-10.2) mg/dL Total Bilirubin (0.2-1.3) mg/dL AST (14-36) U/L ALT (4-34) U/L Alkaline Phosphatase (38-126) U/L Troponin I (0.000-0.034) ng/mL NT-Pro-B Natriuret Pep pg/mL Total Protein (6.3-8.2) g/dL Albumin (3.5-5.0) g/dL Lipase (23-300) U/L Disposition <Ana Luisa Mcadams - Last Filed: 04/23/23 20:59> <Jose G Bright - Last Filed: 04/30/23 19:57> Clinical Impression: Abdominal pain, Partial small bowel obstruction Disposition: ADMITTED IP TO THIS HOSP Condition: Fair
[2023-04-23 22:34] LABS: Basophils # (A) 0.1 k/uL (0-0.2); Basophils % (A) 1 %; Eosinophils # (A) 0.2 k/uL (0-0.7); Eosinophils % (A) 4 %; HCT 34.5 % (34.0-46.0); HGB 10.7 gm/dL (11.4-16.0); Hypochromasia Slight; Lymphocytes # (A) 1.5 k/uL (1.0-4.8); Lymphocytes % (A) 29 %; MCH 28.1 pg (25.0-35.0); MCHC 31.1 g/dL (31.0-37.0); MCV 90.2 fL (80.0-100.0); Mean Platelet Volume 8.1; Monocytes # (A) 0.3 k/uL (0-1.0); Monocytes % (A) 6 %; Neutrophils % (A) 58 %; Platelet Count 323 k/uL (150-450); RBC 3.83 m/uL (3.80-5.40); RDW 15.6 % (11.5-15.5); WBC 5.2 k/uL (3.8-10.6)
[2023-04-23 23:09] LABS: ALT 22 U/L (4-34); AST 30 U/L (14-36); African American GFR (CKD) 46 (>60 ml/min/1.73 sqM); Albumin 4.2 g/dL (3.5-5.0); Alkaline Phosphatase 120 U/L (38-126); Anion Gap 11 mmol/L; Blood Urea Nitrogen 26 mg/dL (7-17); Calcium 9.2 mg/dL (8.4-10.2); Carbon Dioxide 23 mmol/L (22-30); Chloride 109 mmol/L (98-107); Glucose 144 mg/dL (74-99); Lipase 140 U/L (23-300); Non-African American GFR(CKD) 40 (>60 ml/min/1.73 sqM); Potassium 4.8 mmol/L (3.5-5.1); Sodium 143 mmol/L (137-145); Total Bilirubin 0.4 mg/dL (0.2-1.3); Total Protein 7.5 g/dL (6.3-8.2)
[2023-04-23 23:18] LABS: NT-Pro-B-Type Natriuretic Pept 502 pg/mL
--- NOTE | 2023-04-24 00:19 | CT ---
EXAM: CT Abdomen and Pelvis Without Intravenous Contrast CLINICAL HISTORY: ITS.REASON CT Reason: pain TECHNIQUE: Axial computed tomography images of the abdomen and pelvis without intravenous contrast. CTDI is 20.0 mGy and DLP is 1073 mGy-cm. This CT exam was performed using one or more of the following dose reduction techniques: automated exposure control, adjustment of the mA and/or kV according to patient size, and/or use of iterative reconstruction technique. COMPARISON: No relevant prior studies available. FINDINGS: Lung bases: Unremarkable. No mass. No consolidation. Mediastinum: Small hiatal hernia. ABDOMEN: Liver: Unremarkable. Gallbladder and bile ducts: Cholecystectomy. No ductal dilation. Pancreas: Unremarkable. No ductal dilation. Spleen: Unremarkable. No splenomegaly. Adrenals: Unremarkable. No mass. Kidneys and ureters: No hydronephrosis. RIGHT renal cyst measures 3.1 cm. Stomach and bowel: Partial small bowel obstruction with anastomotic suture in the mid abdomen deep to the umbilicus. This anastomotic loop with patulous measuring 5.1 cm and contains an air-fluid level. No obstruction. No mucosal thickening. PELVIS: Appendix: No findings to suggest acute appendicitis. Bladder: Unremarkable. No stones. Reproductive: Atrophy of the uterus. ABDOMEN and PELVIS: Intraperitoneal space: Unremarkable. No free air. No significant fluid collection. Bones/joints: Degenerative changes of the spine. No acute fracture. No dislocation. Soft tissues: Unremarkable. Vasculature: Atherosclerotic changes of the aorta. No abdominal aortic aneurysm. Lymph nodes: Unremarkable. No enlarged lymph nodes. IMPRESSION: 1. Partial small bowel obstruction with anastomotic suture in the mid abdomen deep to the umbilicus. This anastomotic loop with patulous measuring 5.1 cm and contains an air-fluid level. No obstruction. 2. Cholecystectomy. 3. Small hiatal hernia. 4. No hydronephrosis. RIGHT renal cyst measures 3.1 cm.
[2023-04-24] MEDS ORDERED: SODIUM CHLORIDE 0.9% 500 ML 500 ML IV STA (01:56)
[2023-04-24] MEDS ORDERED: ONDANSETRON 4 MG/2 ML VIAL IVP STA (01:56)
[2023-04-24] MEDS ORDERED: HYDROmorphone 0.5 MG/0.5 ML SYRINGE IVP STA (01:56)
[2023-04-24] MEDS ORDERED: NALOXONE 0.4 MG/ML 1 ML VIAL IV PRN (02:59)
[2023-04-24] MEDS ORDERED: ONDANSETRON 4 MG/2 ML VIAL IVP PRN (02:59)
[2023-04-24] MEDS ORDERED: HYDROmorphone 2 MG TAB PO PRN (02:59)
[2023-04-24] MEDS: SODIUM CHLORIDE 0.9% 1,000 ML IV SCH ×2 (06:14→21:58)
[2023-04-24] MEDS: HYDROmorphone 0.5 MG/0.5 ML SYRINGE IVP PRN ×4 (06:16→22:13)
[2023-04-24] MEDS ORDERED: IOPAMIDOL CONTRAST (ORAL USE) VIAL PO PRN (07:37)
--- NOTE | 2023-04-24 12:12 | P.GSHP ---
History of Present Illness H&P Date: 04/24/23 CHIEF COMPLAINT: Abdominal HISTORY OF PRESENT ILLNESS: This is a 68-year-old female who presented to the hospital with complaints of epigastric abdominal pain and diffuse pain. She has been having nausea no vomiting. She reports loose bowel movements. She is having flatus. She reports that the pain has been present for the last 3 days. Computed tomography scan abdomen and pelvis without contrast reported partial small bowel obstruction with anastomotic stricture in the mid abdomen deep to the umbilicus. Patient's past surgical history includes incarcerated incisional hernia with mesh and lysis of adhesions in June 2021. 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 Surgical service consulted for partial small bowel obstruction. 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 bowel resection for obstruction, amalia cataracts, MEDICATIONS: See below ALLERGIES: See below SOCIAL HISTORY: No illicit drug use. REVIEW OF SYSTEMS: CONSTITUTIONAL: Denies fever or chills. HEENT: Denies blurred vision, vision changes, or eye pain. Denies hemoptysis CARDIOVASCULAR: Denies chest pain or pressure. RESPIRATORY: No shortness of breath. GASTROINTESTINAL: See HPI for pertinent findings HEMATOLOGIC: Denies bleeding disorders. GENITOURINARY: Denies any blood in urine or increased urinary frequency. SKIN: Denies pruitis. Denies rash. PHYSICAL EXAM: VITAL SIGNS: Reviewed GENERAL: Well-developed in no acute distress. HEENT: No sclera icterus. Extraocular movements grossly intact. Moist buccal mucosa. Head is atraumatic, normocephalic. No nasal drainage. ABDOMEN: Soft. Obese. Nondistended. Diffuse tenderness with palpation NEUROLOGIC: Alert and oriented. Cranial nerves II through XII grossly intact. LABORATORY DATA: WBC 5.2 Hgb 10.7 platelets 323 Sodium 143 potassium 4.8 creatinine 1.37 Lactic acid 1.4 LFTs normal Lipase 140 IMAGING: Computed tomography scan abdomen and pelvis without contrast reports partial small bowel obstruction with anastomotic suture in the mid abdomen deep to the umbilicus. This anastomotic loop with patulous measuring 5.1 cm and contains air-fluid level. No obstruction. Cholecystectomy. Small hiatal hernia. Right renal cyst measuring 3.1 cm. Repeat computed tomography scan with oral contrast shows previous right hemicolectomy with ileocolonic anastomosis at proximal transverse colon. No findings suggest bowel obstruction. Suspected small hiatal hernia. Previous ventral abdominal wall mesh repair with associated scarring. Unchanged nodularity right lower quadrant measuring up to 1.5 cm. Suspect high riding ovary. ASSESSMENT: 1. Abdominal pain 2. History of chronic abdominal pain 3. Prior history of abdominal surgeries PLAN: -Patient has been having bowel movements. Repeat computed tomography scan with contrast shows no evidence of bowel obstruction. Patient does have known history of chronic abdominal pain. Diet will be advanced to full liquids. -Continue to monitor -Consult medicine service for medical management Physician Microelectronics Technician note has been reviewed by physician. Signing provider agrees with the documented findings, assessment, and plan of care. 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 bowel resection for obstruction, amalia cataracts, Past Anesthesia/Blood Transfusion Reactions: No Reported Reaction Past Psychological History: No Psychological Hx Reported Smoking Status: Former smoker Past Alcohol Use History: None Reported Past Drug Use History: None Reported - Past Family History Mother Family Medical History: Cancer, CVA/TIA, Pulmonary Embolus Additional Family Medical History / Comment(s): breast cancer Father Family Medical History: CVA/TIA, Myocardial Infarction ([place]) Additional Family Medical History / Comment(s): . Brother(s) Family Medical History: Congestive Heart Failure (CHF) Additional Family Medical History / Comment(s): CABG Medications and Allergies Home Medications Medication Instructions Recorded Confirmed Type Gabapentin [Neurontin] 100 mg PO BID #6 cap 07/28/21 04/24/23 Rx Pantoprazole Sodium [Protonix] 40 mg PO BID 11/12/21 04/24/23 History Glimepiride [Amaryl] 2 mg PO DAILY 04/24/23 04/24/23 History Losartan [Cozaar] 50 mg PO DAILY 04/24/23 04/24/23 History Metoprolol Succinate (ER) [Toprol 25 mg PO DAILY 04/24/23 04/24/23 History Xl] Pioglitazone [Actos] 15 mg PO DAILY 04/24/23 04/24/23 History Triamcinolone 0.1% Cream [Kenalog 1 applic TOPICAL BID 04/24/23 04/24/23 History 0.1% Cream] rOPINIRole HCL 0.25 mg PO HS 04/24/23 04/24/23 History Allergies Allergy/AdvReac Type Severity Reaction Status Date / Time morphine Allergy Rash/Hives Verified 04/24/23 09:22 sulfamethoxazole AdvReac Abdominal Verified 04/24/23 09:22 [From Bactrim] Pain trimethoprim [From Bactrim] AdvReac Abdominal Verified 04/24/23 09:22 Pain Surgical - Exam Vital Signs Temp Pulse Resp BP Pulse Ox 97.7 F 88 20 159/63 98 04/23/23 20:54 04/23/23 20:54 04/23/23 20:54 04/23/23 20:54 04/23/23 20:54 Results - Labs 04/23/23 21:35 04/23/23 21:35 Abnormal Lab Results - Last 24 Hours (Table) 04/23/23 04/23/23 Range/Units 21:35 21:35 Hgb 10.7 L (11.4-16.0) gm/dL RDW 15.6 H (11.5-15.5) % Chloride 109 H (98-107) mmol/L BUN 26 H (7-17) mg/dL Creatinine 1.37 H (0.52-1.04) mg/dL Glucose 144 H (74-99) mg/dL Diabetes panel 04/23/23 Range/Units 21:35 Sodium 143 (137-145) mmol/L Potassium 4.8 (3.5-5.1) mmol/L Chloride 109 H (98-107) mmol/L Carbon Dioxide 23 (22-30) mmol/L BUN 26 H (7-17) mg/dL Creatinine 1.37 H (0.52-1.04) mg/dL Glucose 144 H (74-99) mg/dL Calcium 9.2 (8.4-10.2) mg/dL AST 30 (14-36) U/L ALT 22 (4-34) U/L Alkaline Phosphatase 120 (38-126) U/L Total Protein 7.5 (6.3-8.2) g/dL Albumin 4.2 (3.5-5.0) g/dL Calcium panel 04/23/23 Range/Units 21:35 Calcium 9.2 (8.4-10.2) mg/dL Albumin 4.2 (3.5-5.0) g/dL Pituitary panel 04/23/23 Range/Units 21:35 Sodium 143 (137-145) mmol/L Potassium 4.8 (3.5-5.1) mmol/L Chloride 109 H (98-107) mmol/L Carbon Dioxide 23 (22-30) mmol/L BUN 26 H (7-17) mg/dL Creatinine 1.37 H (0.52-1.04) mg/dL Glucose 144 H (74-99) mg/dL Calcium 9.2 (8.4-10.2) mg/dL Adrenal panel 04/23/23 Range/Units 21:35 Sodium 143 (137-145) mmol/L Potassium 4.8 (3.5-5.1) mmol/L Chloride 109 H (98-107) mmol/L Carbon Dioxide 23 (22-30) mmol/L BUN 26 H (7-17) mg/dL Creatinine 1.37 H (0.52-1.04) mg/dL Glucose 144 H (74-99) mg/dL Calcium 9.2 (8.4-10.2) mg/dL Total Bilirubin 0.4 (0.2-1.3) mg/dL AST 30 (14-36) U/L ALT 22 (4-34) U/L Alkaline Phosphatase 120 (38-126) U/L Total Protein 7.5 (6.3-8.2) g/dL Albumin 4.2 (3.5-5.0) g/dL
--- NOTE | 2023-04-24 12:46 | CT ---
EXAMINATION TYPE: CT abdomen pelvis wo con DATE OF EXAM: 04/24/2023 COMPARISON: 04/23/2023 and 11/16/2021 HISTORY: 68-year-old female with pain, possible small bowel obstruction CT DLP: 1015.2 mGycm. Automated exposure control for dose reduction was used. TECHNIQUE: Contiguous axial scanning of the abdomen and pelvis without IV contrast. Coronal and sagit hanna reconstructions performed. FINDINGS: LUNG BASES: Since scarring at the lung bases. No pleural effusion. LIVER/GB: No significant abnormality is appreciated. PANCREAS: No significant abnormality is seen. SPLEEN: No significant abnormality is seen. ADRENALS: No significant abnormality is seen. KIDNEYS: Scattered cortical cysts measuring up to 3.1 cm redemonstrated. No hydronephrosis. BOWEL: Postsurgical change of the GE junction suggesting prior hiatal hernia repair. There is mild ci rcumferential thickening of the distal esophagus that could represent a recurrent small hiatal hernia or some mild esophagitis. Clinically correlate. Additional postsurgical changes of previous partial right hemicolectomy with ileocolonic anastomosis at the proximal transverse colon. Contrast material has just entered the transverse colon. The anastomotic site is patulous up to 6.1 cm, likely chronic postoperative change. No dilated small bowel or transition point is seen. LYMPH NODES: No significant abnormality is seen. OTHER: Previous ventral abdominal wall mesh repair. Similar thickening along the mesh suggesting scar ring. PELVIS: Bilobed nodularity in the right lower quadrant measuring 1.5 cm and 1.1 cm probably high rid ing right ovary, unchanged back to at least 11/16/2021. Bladder is collapsed. Left ovary is visualized . Similar 2.0 cm cyst within. Uterus anteverted. No abnormal fluid collection the pelvis or pelvic ly mphadenopathy seen. BONES: Moderate spondylotic change mid to lower dorsal spine. IMPRESSION: 1. Previous right hemicolectomy with ileocolonic anastomosis at the proximal transverse colon. Simil ar patulous anastomotic site likely chronic postsurgical change. 2. No findings to suggest bowel obstruction. 3. Prior surgery at the GE junction but with suspected small hiatal hernia. 4. Previous ventral abdominal wall mesh repair with associated scarring. 5. Unchanged nodularity right lower quadrant measuring up to 1.5 cm. Unchanged back to at least 11/16. Given stability, suspect high riding ovary.
[2023-04-24 21:42] LABS: Glucose,Whole Blood 122 mg/dL (70-110)
[2023-04-24 21:52] LABS: Appearance,Urine Clear (Clear); Color,Urine Light Yellow; Specific Gravity,Urine 1.015 (1.001-1.035)
[2023-04-24 21:53] LABS: Bilirubin,Urine Negative (Negative); Blood,Urine Negative (Negative); Glucose,Urine (UA) Negative (Negative); Ketones,Urine Negative (Negative); Leukocyte Esterase,Urine Negative (Negative); Nitrite,Urine Negative (Negative); Protein,Urine Negative (Negative); Urobilinogen,Urine <2.0 mg/dL (<2.0)
[2023-04-24] MEDS ORDERED: METOCLOPRAMIDE 5 MG/ML 2 ML VIAL IVP PRN (22:28)
[2023-04-24 23:42] VITALS: RESP 19
[2023-04-25] MEDS: SODIUM CHLORIDE 0.9% 1,000 ML IV SCH ×2 (02:09→10:07)
[2023-04-25 04:15] VITALS: TEMP 98.8
[2023-04-25] MEDS: HYDROmorphone 0.5 MG/0.5 ML SYRINGE IVP PRN ×2 (04:42→09:01)
[2023-04-25 06:20] LABS: Glucose,Whole Blood 120 mg/dL (70-110)
[2023-04-25] MEDS ORDERED: PANTOPRAZOLE 40 MG TABLET PO SCH (07:30)
[2023-04-25 08:05] LABS: African American GFR (CKD) 76 (>60 ml/min/1.73 sqM); Anion Gap 8 mmol/L; Blood Urea Nitrogen 16 mg/dL (7-17); Calcium 8.8 mg/dL (8.4-10.2); Carbon Dioxide 22 mmol/L (22-30); Chloride 110 mmol/L (98-107); Glucose 105 mg/dL (74-99); Non-African American GFR(CKD) 65 (>60 ml/min/1.73 sqM); Potassium 4.8 mmol/L (3.5-5.1); Sodium 140 mmol/L (137-145)
[2023-04-25 08:22] VITALS: BP 122/49; PULSE 87
[2023-04-25] MEDS ORDERED: METOPROLOL SUCCINATE (ER) 25 MG TAB.ER.24H PO SCH (09:00)
[2023-04-25] MEDS ORDERED: GABAPENTIN 100 MG CAP PO SCH (09:00)
[2023-04-25] MEDS ORDERED: LOSARTAN 50 MG TAB PO SCH (09:00)
[2023-04-25] MEDS ORDERED: GLIMEPIRIDE 2 MG TAB PO SCH (09:00)
[2023-04-25] MEDS ORDERED: PIOGLITAZONE 15 MG TAB PO SCH (09:00)
[2023-04-25 11:46] LABS: Glucose,Whole Blood 122 mg/dL (70-110)
[2023-04-25] MEDS ORDERED: METOCLOPRAMIDE 5 MG/ML 2 ML VIAL IVP SCH (12:45)
--- NOTE | 2023-04-25 13:38 | P.DS ---
Providers Date of admission: 04/24/23 02:59 Expected date of discharge: 04/25/23 Attending physician: Reji Rangel Consults: 04/24/23 12:11 Consult Physician Routine Consulting Provider: Dmitry Lewis Consult Reason/Comments: medical management Do you want consulting provider notified?: Yes Primary care physician: Dmitry Lewis MD Hospital Course: Discharge diagnoses 1. Abdominal pain improved 2. History of chronic abdominal pain 3. Prior history of abdominal surgeries Hospital course This is a 68-year-old female who presents with complaints of abdominal pain with nausea 3 days. Patient had an initial CAT scan done without contrast and it showed concerns for partial small bowel obstruction. Repeat CAT scan with oral contrast that showed no evidence of bowel obstruction. Patient is having bowel movements and flatus. She is tolerating diet. She does have chronic abdominal pain. She is stable for discharge. Please refer to chart for any further details. Physician Margarine Churn Operator note has been reviewed by physician. Signing provider agrees with the documented findings, assessment, and plan of care. Patient Condition at Discharge: Stable Plan - Discharge Summary Discharge Rx Participant: Yes New Discharge Prescriptions: Continue Gabapentin [Neurontin] 100 mg PO BID #6 cap Pantoprazole Sodium [Protonix] 40 mg PO BID Triamcinolone 0.1% Cream [Kenalog 0.1% Cream] 1 applic TOPICAL BID Pioglitazone [Actos] 15 mg PO DAILY Losartan [Cozaar] 50 mg PO DAILY rOPINIRole HCL 0.25 mg PO HS Glimepiride [Amaryl] 2 mg PO DAILY Metoprolol Succinate (ER) [Toprol XL] 25 mg PO DAILY Discharge Medication List Gabapentin [Neurontin] 100 mg PO BID #6 cap 07/28/21 [Rx] Pantoprazole Sodium [Protonix] 40 mg PO BID 11/12/21 [History] Glimepiride [Amaryl] 2 mg PO DAILY 04/24/23 [History] Losartan [Cozaar] 50 mg PO DAILY 04/24/23 [History] Metoprolol Succinate (ER) [Toprol XL] 25 mg PO DAILY 04/24/23 [History] Pioglitazone [Actos] 15 mg PO DAILY 04/24/23 [History] Triamcinolone 0.1% Cream [Kenalog 0.1% Cream] 1 applic TOPICAL BID 04/24/23 [History] rOPINIRole HCL 0.25 mg PO HS 04/24/23 [History] Follow up Appointment(s)/Referral(s): Dmitry Lewis MD [Primary Care Provider] - 04/27/23 1:00 pm (with [facility] in [place] office) Discharge Disposition: HOME SELF-CARE
[2023-04-25] MEDS ORDERED: DEXTROSE 50% SYRINGE 50 ML IVP PRN ×2 (16:45)
[2023-04-25] MEDS ORDERED: INSULIN ASPART (NovoLOG) 100 UNIT/ML VIAL SQ SCH (17:30)
== END 2023-04-25 17:09 | disposition home or self-care (01) ==
LOC: EC 20:46 → 4SSUR 04-24 02:59 → INTOOBSV 04-24 02:59 → 4SSUR 04-24 17:31
PROVIDERS: ADMIT Surgery; ATTEND Surgery
DX: R10.13 Epigastric pain (principal); G89.29 Other chronic pain; R11.0 Nausea; R22.40 Localized swelling, mass and lump, unspecified lower limb; E11.42 Type 2 diabetes mellitus with diabetic polyneuropathy; E11.51 Type 2 diabetes mellitus with diabetic peripheral angiopathy without gangrene; E11.22 Type 2 diabetes mellitus with diabetic chronic kidney disease; N18.30 Chronic kidney disease, stage 3 unspecified; I25.10 Atherosclerotic heart disease of native coronary artery without angina pectoris; K21.9 Gastro-esophageal reflux disease without esophagitis; E78.5 Hyperlipidemia, unspecified; M19.90 Unspecified osteoarthritis, unspecified site; K58.9 Irritable bowel syndrome, unspecified; Q89.9 Congenital malformation, unspecified; R41.3 Other amnesia; K44.9 Diaphragmatic hernia without obstruction or gangrene; N28.1 Cyst of kidney, acquired; Z79.84 Long term (current) use of oral hypoglycemic drugs; Z79.899 Other long term (current) drug therapy; Z88.1 Allergy status to other antibiotic agents; Z88.2 Allergy status to sulfonamides; Z88.5 Allergy status to narcotic agent; Z87.891 Personal history of nicotine dependence; Z90.49 Acquired absence of other specified parts of digestive tract; Z98.0 Intestinal bypass and anastomosis status; Z98.42 Cataract extraction status, left eye; Z98.41 Cataract extraction status, right eye; Z98.890 Other specified postprocedural states; Z82.49 Family history of ischemic heart disease and other diseases of the circulatory system; Z80.3 Family history of malignant neoplasm of breast; Z82.3 Family history of stroke
CPT/HCPCS: 96376 ×3; 96361 ×3; 96375 ×2; 96374; 99285; 36415; 93005; 97162; 97165; 83880; 80053; 80048; 83605; 83690; 84484; 85025; 81003; 74176 ×2; G0378; J2765; J2405; J1170 ×2

== ENCOUNTER 2023-08-28 07:25 | Observation (INO) | payer MEDICARE ==
--- NOTE | 2023-08-28 07:50 | ED ---
General Adult HPI - General Chief complaint: Chest Pain Stated complaint: Chest/Back Pain Time Seen by Provider: 08/28/23 07:28 Source: patient, RN notes reviewed, old records reviewed Mode of arrival: ambulatory Limitations: no limitations - History of Present Illness Initial comments: 68-year-old female presenting with multiple complaints. Patient states that she had not felt well over the past 3 days this includes some nausea and frequent urination. Patient did not have significant vomiting. She states she had previous history of bowel obstruction but states that she did have a bowel movement today. No CVA. Patient is reporting chills. She developed central chest pressure about 30 minutes prior to arrival. This pain does not radiate. There is no diaphoresis. - Related Data Home Medications Medication Instructions Recorded Confirmed Pantoprazole Sodium [Protonix] 40 mg PO BID 11/12/21 04/24/23 Glimepiride [Amaryl] 2 mg PO DAILY 04/24/23 04/24/23 Losartan [Cozaar] 50 mg PO DAILY 04/24/23 04/24/23 Metoprolol Succinate (ER) [Toprol 25 mg PO DAILY 04/24/23 04/24/23 XL] Pioglitazone [Actos] 15 mg PO DAILY 04/24/23 04/24/23 Triamcinolone 0.1% Cream [Kenalog 1 applic TOPICAL BID 04/24/23 04/24/23 0.1% Cream] rOPINIRole HCL 0.25 mg PO HS 04/24/23 04/24/23 Previous Rx's Medication Instructions Recorded Gabapentin [Neurontin] 100 mg PO BID #6 cap 07/28/21 Allergies Allergy/AdvReac Type Severity Reaction Status Date / Time morphine Allergy Rash/Hives Verified 08/28/23 07:31 sulfamethoxazole AdvReac Abdominal Verified 08/28/23 07:31 [From Bactrim] Pain trimethoprim [From Bactrim] AdvReac Abdominal Verified 08/28/23 07:31 Pain Review of Systems ROS Statement: Those systems with pertinent positive or pertinent negative responses have been documented in the HPI. ROS Other: All systems not noted in ROS Statement are negative. 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 bowel resection for obstruction, amalia cataracts, Past Anesthesia/Blood Transfusion Reactions: No Reported Reaction Past Psychological History: No Psychological Hx Reported Smoking Status: Former smoker Past Alcohol Use History: None Reported Past Drug Use History: None Reported - Past Family History Mother Family Medical History: Cancer, CVA/TIA, Pulmonary Embolus Additional Family Medical History / Comment(s): breast cancer Father Family Medical History: CVA/TIA, Myocardial Infarction ([place]) Additional Family Medical History / Comment(s): . Brother(s) Family Medical History: Congestive Heart Failure (CHF) Additional Family Medical History / Comment(s): CABG General Exam Limitations: no limitations General appearance: alert, in no apparent distress Head exam: Present: atraumatic, normocephalic Eye exam: Present: normal appearance, PERRL ENT exam: Present: normal exam Neck exam: Present: normal inspection. Absent: tenderness Respiratory exam: Present: normal lung sounds bilaterally. Absent: respiratory distress Cardiovascular Exam: Present: regular rate, normal rhythm GI/Abdominal exam: Present: soft. Absent: distended, tenderness, guarding, rebound Extremities exam: Present: normal inspection, normal capillary refill. Absent: calf tenderness Neurological exam: Present: alert, oriented X3, CN II-XII intact. Absent: motor sensory deficit Psychiatric exam: Present: normal affect, normal mood Skin exam: Present: warm, dry, intact. Absent: cyanosis, diaphoretic Course Vital Signs 08/28/23 08/28/23 07:28 07:40 Temperature 98 F Pulse Rate 78 Pulse Rate [ 68 Documentation Consultant ] Respiratory 18 Rate Blood Pressure 183/90 O2 Sat by Pulse 99 Oximetry Medical Decision Making - Medical Decision Making Was pt. sent in by a medical professional or institution (Dr., PA, UPWARD BOUND DIRECTOR, urgent care, hospital, or detention...) When possible be specific @ -No Did you speak to anyone other than the patient for history (EMS, parent, family, police, friend...)? What history was obtained from this source @ -Patient's able to give detailed history. Did you review nursing and triage notes (agree or disagree)? Why? @ -I reviewed and agree with nursing and triage notes Were old charts reviewed (outside hosp., previous admission, EMS record, old EKG, old radiological studies, urgent care reports/EKG's, detention records)? Report findings @ -No old charts were reviewed Differential Diagnosis (chest pain, altered mental status, abdominal pain women, abdominal pain men, vaginal bleeding, weakness, fever, dyspnea, syncope, headache, dizziness, GI bleed, back pain, seizure, CVA, palpatations, mental health, musculoskeletal)? @ -[MDM differential chest pain. EKG interpreted by me (3pts min.). @ -Sinus rhythm rate of 67, CO interval 168, QRS duration 97, QTc 380, no ST segment elevation. X-rays interpreted by me (1pt min.). @ -Chest x-ray negative for acute cardiopulmonary findings, KUB showing enteritis versus ileus. CT interpreted by me (1pt min.). @ -[None done U/S interpreted by me (1pt. min.). @ -None done What testing was considered but not performed or refused? (CT, X-rays, U/S, labs)? Why? @ -None What meds were considered but not given or refused? Why? @ -None Did you discuss the management of the patient with other professionals (professionals i.e. , PA, UPWARD BOUND DIRECTOR, lab, RT, psych nurse, social service agency director, rigging and controls aircraft mechanic, teacher, court collections officer, skilled nursing case manager)? Give summary @ -Dr. Lewis Was smoking cessation discussed for >3mins.? @ -No Was critical care preformed (if so, how long)? @ -No Were there social determinants of health that impacted care today? How? ([place]ldon elessness, low income, unemployed, alcoholism, drug addiction, transportation, low edu. Level, literacy, decrease access to med. care, senior living, rehab)? @ -No Was there de-escalation of care discussed even if they declined (Discuss DNR or withdrawal of care, Hospice)? DNR status @ -No What co-morbidities impacted this encounter? (DM, HTN, Smoking, COPD, CAD, Cancer, CVA, ARF, Chemo, Hep., AIDS, mental health diagnosis, sleep apnea, morbid obesity)? @ -Diabetes, hypertension Was patient admitted / discharged? Hospital course, mention meds given and route, prescriptions, significant lab abnormalities, going to OR and other pertinent info. @ -[68-year-old female presenting with complaints of nausea, abdominal distention, chest pain. Patient's EKG is sinus rhythm without definitive signs of ischemia. She has chronic stable anemia. She has a mild elevation in serum creatinine at 1.12. Initial troponin is negative. She does have urinary symptoms as well and urinalysis shows 6 white cells and rare bacteria. Urine culture pending. Patient will be observed for hydration, symptom control, and serial cardiac enzymes. Undiagnosed new problem with uncertain prognosis? @ -No Drug Therapy requiring intensive monitoring for toxicity (Heparin, Nitro, Insulin, Cardizem)? @ -No Were any procedures done? @ -No Diagnosis/symptom? @ -Dehydration, enteritis, chest pain Acute, or Chronic, or Acute on Chronic? @ -Acute Uncomplicated (without systemic symptoms) or Complicated (systemic symptoms)? @ -Default Side effects of treatment? @ -No Exacerbation, Progression, or Severe Exacerbation? @ -No Poses a threat to life or bodily function? How? (Chest pain, [place], [place], pneumonia, PE, COPD, DKA, ARF, appy, cholecystitis, CVA, Diverticulitis, Homicidal, Suicidal, threat to staff... and all critical care pts) @ -Low risk at this time - Lab Data Result diagrams: 08/28/23 08:00 08/28/23 08:00 Lab Results 08/28/23 08/28/23 08/28/23 Range/Units 08:00 08:00 08:00 WBC 4.7 (3.8-10.6) k/uL RBC 3.60 L (3.80-5.40) m/uL Hgb 10.8 L (11.4-16.0) gm/dL Hct 33.4 L (34.0-46.0) % MCV 92.6 (80.0-100.0) fL MCH 29.9 (25.0-35.0) pg MCHC 32.3 (31.0-37.0) g/dL RDW 15.3 (11.5-15.5) % Plt Count 281 (150-450) k/uL MPV 8.0 Neutrophils % 54 % Lymphocytes % 33 % Monocytes % 6 % Eosinophils % 4 % Basophils % 1 % Neutrophils # 2.5 (1.3-7.7) k/uL Lymphocytes # 1.5 (1.0-4.8) k/uL Monocytes # 0.3 (0-1.0) k/uL Eosinophils # 0.2 (0-0.7) k/uL Basophils # 0.1 (0-0.2) k/uL PT 10.3 (10.0-12.5) sec INR 0.9 (<1.2) APTT 22.5 (22.0-30.0) sec Sodium (137-145) mmol/L Potassium (3.5-5.1) mmol/L Chloride (98-107) mmol/L Carbon Dioxide (22-30) mmol/L Anion Gap mmol/L BUN (7-17) mg/dL Creatinine (0.52-1.04) mg/dL Est GFR (CKD-EPI)AfAm (>60 ml/min/1.73 sqM) Est GFR (CKD-EPI)NonAf (>60 ml/min/1.73 sqM) Glucose (74-99) mg/dL Calcium (8.4-10.2) mg/dL Magnesium (1.6-2.3) mg/dL Total Bilirubin (0.2-1.3) mg/dL AST (14-36) U/L ALT (4-34) U/L Alkaline Phosphatase (38-126) U/L Troponin I (0.000-0.034) ng/mL Total Protein (6.3-8.2) g/dL Albumin (3.5-5.0) g/dL Lipase (23-300) U/L Urine Color Yellow Urine Appearance Cloudy H (Clear) Urine pH 5.5 (5.0-8.0) Ur Specific Ringling 1.022 (1.001-1.035) Urine Protein Trace H (Negative) Urine Glucose (UA) Negative (Negative) Urine Ketones Negative (Negative) Urine Blood Moderate H (Negative) Urine Nitrite Negative (Negative) Urine Bilirubin Negative (Negative) Urine Urobilinogen <2.0 (<2.0) mg/dL Ur Leukocyte Esterase Moderate H (Negative) Urine RBC 6 H (0-5) /hpf Urine WBC 6 H (0-5) /hpf Ur Squamous Epith Cells 2 (0-4) /hpf Amorphous Sediment Few H (None) /hpf Urine Bacteria Few H (None) /hpf Hyaline Casts 3 H (0-2) /lpf Urine Mucus Rare H (None) /hpf Influenza Type A (PCR) (Not Detectd) Influenza Type B (PCR) (Not Detectd) RSV (PCR) (Not Detectd) SARS-CoV-2 (PCR) (Not Detectd) 08/28/23 08/28/23 08/28/23 Range/Units 08:00 08:00 08:00 WBC (3.8-10.6) k/uL RBC (3.80-5.40) m/uL Hgb (11.4-16.0) gm/dL Hct (34.0-46.0) % MCV (80.0-100.0) fL MCH (25.0-35.0) pg MCHC (31.0-37.0) g/dL RDW (11.5-15.5) % Plt Count (150-450) k/uL MPV Neutrophils % % Lymphocytes % % Monocytes % % Eosinophils % % Basophils % % Neutrophils # (1.3-7.7) k/uL Lymphocytes # (1.0-4.8) k/uL Monocytes # (0-1.0) k/uL Eosinophils # (0-0.7) k/uL Basophils # (0-0.2) k/uL PT (10.0-12.5) sec INR (<1.2) APTT (22.0-30.0) sec Sodium 142 (137-145) mmol/L Potassium 4.5 (3.5-5.1) mmol/L Chloride 111 H (98-107) mmol/L Carbon Dioxide 24 (22-30) mmol/L Anion Gap 7 mmol/L BUN 23 H (7-17) mg/dL Creatinine 1.12 H (0.52-1.04) mg/dL Est GFR (CKD-EPI)AfAm 59 (>60 ml/min/1.73 sqM) Est GFR (CKD-EPI)NonAf 51 (>60 ml/min/1.73 sqM) Glucose 167 H (74-99) mg/dL Calcium 9.5 (8.4-10.2) mg/dL Magnesium 1.5 L (1.6-2.3) mg/dL Total Bilirubin 0.5 (0.2-1.3) mg/dL AST 26 (14-36) U/L ALT 17 (4-34) U/L Alkaline Phosphatase 128 H (38-126) U/L Troponin I <0.012 (0.000-0.034) ng/mL Total Protein 6.8 (6.3-8.2) g/dL Albumin 4.0 (3.5-5.0) g/dL Lipase 146 (23-300) U/L Urine Color Urine Appearance (Clear) Urine pH (5.0-8.0) Ur Specific Ringling (1.001-1.035) Urine Protein (Negative) Urine Glucose (UA) (Negative) Urine Ketones (Negative) Urine Blood (Negative) Urine Nitrite (Negative) Urine Bilirubin (Negative) Urine Urobilinogen (<2.0) mg/dL Ur Leukocyte Esterase (Negative) Urine RBC (0-5) /hpf Urine WBC (0-5) /hpf Ur Squamous Epith Cells (0-4) /hpf Amorphous Sediment (None) /hpf Urine Bacteria (None) /hpf Hyaline Casts (0-2) /lpf Urine Mucus (None) /hpf Influenza Type A (PCR) Not Detected (Not Detectd) Influenza Type B (PCR) Not Detected (Not Detectd) RSV (PCR) Not Detected (Not Detectd) SARS-CoV-2 (PCR) Not Detected (Not Detectd) Disposition Clinical Impression: Nausea, Chest pain Disposition: ADMITTED IP TO THIS HOSP Condition: Stable Is patient prescribed a controlled substance at d/c from ED?: No Referrals: Dmitry Lewis MD [Primary Care Provider] - 1-2 days Time of Disposition: 10:05
[2023-08-28 08:09] LABS: Basophils # (A) 0.1 k/uL (0-0.2); Basophils % (A) 1 %; Eosinophils # (A) 0.2 k/uL (0-0.7); Eosinophils % (A) 4 %; HCT 33.4 % (34.0-46.0); HGB 10.8 gm/dL (11.4-16.0); Lymphocytes # (A) 1.5 k/uL (1.0-4.8); Lymphocytes % (A) 33 %; MCH 29.9 pg (25.0-35.0); MCHC 32.3 g/dL (31.0-37.0); MCV 92.6 fL (80.0-100.0); Monocytes # (A) 0.3 k/uL (0-1.0); Monocytes % (A) 6 %; Neutrophils # (A) 2.5 k/uL (1.3-7.7); Neutrophils % (A) 54 %; Platelet Count 281 k/uL (150-450); RDW 15.3 % (11.5-15.5); WBC 4.7 k/uL (3.8-10.6)
[2023-08-28 08:20] LABS: INR 0.9 (<1.2); Partial Thromboplastin Time 22.5 sec (22.0-30.0); Prothrombin Time 10.3 sec (10.0-12.5)
[2023-08-28 08:29] LABS: ALT 17 U/L (4-34); AST 26 U/L (14-36); African American GFR (CKD) 59 (>60 ml/min/1.73 sqM); Alkaline Phosphatase 128 U/L (38-126); Anion Gap 7 mmol/L; Blood Urea Nitrogen 23 mg/dL (7-17); Calcium 9.5 mg/dL (8.4-10.2); Carbon Dioxide 24 mmol/L (22-30); Chloride 111 mmol/L (98-107); Glucose 167 mg/dL (74-99); Lipase 146 U/L (23-300); Magnesium 1.5 mg/dL (1.6-2.3); Non-African American GFR(CKD) 51 (>60 ml/min/1.73 sqM); Potassium 4.5 mmol/L (3.5-5.1); Sodium 142 mmol/L (137-145); Total Bilirubin 0.5 mg/dL (0.2-1.3); Total Protein 6.8 g/dL (6.3-8.2)
[2023-08-28] MEDS: SODIUM CHLORIDE 0.9% 500 ML 500 ML IV STA (08:43)
[2023-08-28] MEDS: ONDANSETRON 4 MG/2 ML VIAL IVP STA (08:43)
--- NOTE | 2023-08-28 08:59 | XR ---
EXAMINATION TYPE: XR chest 2V DATE OF EXAM: 08/28/2023 COMPARISON: 03/27/2023 HISTORY: 68-year-old female with chest pain TECHNIQUE: PA and lateral views FINDINGS: The cardiomediastinal silhouette, aorta, and pulmonary vasculature are within normal limits. Mild hyp erinflation may reflect underlying COPD. Otherwise, lungs and pleural spaces are clear. IMPRESSION: No acute cardiopulmonary process.
--- NOTE | 2023-08-28 09:08 | XR ---
EXAMINATION TYPE: XR KUB DATE OF EXAM: 08/28/2023 Comparison: 11/10/2021 Clinical History: 68-year-old female nausea Findings: Scattered small air-fluid levels within small bowel loops in the abdomen. No significant stool burden . No dilated small bowel. Cholecystectomy clips right upper quadrant. Small amount of air distally in the rectum. No evidence for free intraperitoneal air. Lung bases are clear. Impression: Scattered small air-fluid levels throughout the abdomen could represent a generalized ileus or enteri tis. No abnormally dilated loops to suggest obstruction at this time. Short interval follow-up can be considered if concern for early developing obstruction.
[2023-08-28 09:10] LABS: Amorphous Sediment,Urine Few /hpf; Appearance,Urine Cloudy (Clear); Bacteria,Urine Few /hpf; Bilirubin,Urine Negative (Negative); Blood,Urine Moderate (Negative); Color,Urine Yellow; Glucose,Urine (UA) Negative (Negative); Hyaline Casts,Urine 3 /lpf (0-2); Ketones,Urine Negative (Negative); Leukocyte Esterase,Urine Moderate (Negative); Mucus,Urine Rare /hpf; Nitrite,Urine Negative (Negative); PH, Urine 5.5 (5.0-8.0); Protein,Urine Trace (Negative); RBC,Urine 6 /hpf (0-5); Specific Gravity,Urine 1.022 (1.001-1.035); Squamous Epithelial Cell,Urine 2 /hpf (0-4); Urobilinogen,Urine <2.0 mg/dL (<2.0); WBC,Urine 6 /hpf (0-5)
[2023-08-28] MEDS ORDERED: NALOXONE 0.4 MG/ML 1 ML VIAL IV PRN (10:01)
[2023-08-28] MEDS: ASPIRIN 325 MG TAB PO STA (10:32)
[2023-08-28] MEDS: SODIUM CHLORIDE 0.9% 1,000 ML IV SCH (10:32)
[2023-08-28] MEDS: ACETAMINOPHEN TAB 325 MG TAB PO PRN (13:44)
[2023-08-28 17:55] LABS: Glucose,Whole Blood 134 mg/dL (70-110)
[2023-08-28] MEDS: ONDANSETRON 4 MG/2 ML VIAL IVP PRN (20:21)
[2023-08-28] MEDS: GABAPENTIN 100 MG CAP PO SCH (20:21)
[2023-08-28] MEDS: PANTOPRAZOLE 40 MG/10 ML VIAL IVP SCH (20:22)
[2023-08-28 20:27] LABS: Glucose,Whole Blood 195 mg/dL (70-110)
[2023-08-28] MEDS: INSULIN ASPART (NovoLOG) 100 UNIT/ML VIAL SQ SCH (20:42)
[2023-08-29 05:53] LABS: Glucose,Whole Blood 101 mg/dL (70-110)
--- NOTE | 2023-08-29 08:58 | P.CRDCN ---
History of Present Illness Consult date: 08/29/23 Consult reason: chest pain History of present illness: History of present illness: This is a 68-year-old female patient of Dr. JOHN Hickey with past medical history of coronary artery disease with either heavily calcified RCA or totally occluded based on cardiac catheterization done in 2017, diabetes mellitus type 2, hyperlipidemia, hypertension, chronic kidney disease stage III, peripheral vascular disease, tobacco use. We have been asked to evaluate the patient for chest pain. Patient states that she presented to hospital due to stomach pain and headache and also had chest pain. The most bothersome to her of the stomach and headache. EKG sinus rhythm with no acute ST-T wave changes. Chest x-ray: No acute process KUB scattered air-fluid levels could represent generalized ileus or enteritis. Troponin negative x 3. Hemoglobin 10.8. INR 0.9. BUN 23 creatinine 1.12, potassium 4.5. Blood sugar 195. Magnesium 1.5. Alkaline phosphatase 128 otherwise liver function test are normal. Lipase 146. Urinalysis moderate leukoesterase, RBC 6, WBC 6, moderate blood, trace protein. Home cardiac medications: Toprol-XL 25 mg daily. Echocardiogram performed 11/12/2021 reveals EF 55 to 60%. Mild mitral and tricuspid insufficiency. No pericardial effusion. Cardiac catheterization performed 05/11/[address] JOHN Hickey revealed RCA either occluded or probably heavily calcified due to inability to selectively cannulate the RCA. Left system is free of significant disease. Circumflex appears to be codominant. Filling pressures normal. Review Of Systems: At the time of my exam: CONSTITUTIONAL: Denies fever or chills. HEENT: Reports headache. Denies blurred vision, vision changes, or eye pain. Denies hemoptysis CARDIOVASCULAR: Denies chest pain. Denies orthopnea. Denies PND. Denies palpitations RESPIRATORY: Denies shortness of breath. GASTROINTESTINAL: Reports abdominal pain. Denies nausea or vomiting. HEMATOLOGIC: Denies bleeding disorders. GENITOURINARY: Denies any blood in urine. SKIN: Denies pruitis. Denies rash. Physical examination: Gen: This is a 68-year-old female in no acute distress. VS: reviewed HEENT: Head is atraumatic, normocephalic. Pupils equal, round. Sclerae is anicteric. NECK: Supple. No JVD. LUNGS: Clear to auscultation. No wheezes or rhonchi. No intercostal retractions. HEART: Regular rate and rhythm. No murmur. ABDOMEN: Soft No tenderness. EXTREMITIES: No pedal edema. No calf tenderness. NEUROLOGICAL: Patient is awake, alert and oriented x3. Assessment: Abdominal pain Headache Chest pain atypical with EKG and cardiac enzymes negative for acute coronary syndrome History of coronary artery disease Hypertension Dyslipidemia Diabetes mellitus type 2 Chronic kidney disease Plan: Resume patient's home cardiac medication Obtain 2-D echocardiogram and Doppler study to assess cardiac structure and function If echocardiogram is unremarkable, patient will be cleared for discharge May follow-up with Dr. JOHN Hickey in the office in 1 to 2 weeks. Thank you kindly for this consultation. Nurse practitioner note has been reviewed, I agree with documented findings and plan of care. Patient was seen and examined. 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 bowel resection for obstruction, amalia cataracts, Past Anesthesia/Blood Transfusion Reactions: No Reported Reaction Past Psychological History: No Psychological Hx Reported Additional Psychological History / Comment(s): short term memory loss Smoking Status: Former smoker Past Alcohol Use History: None Reported Additional Past Alcohol Use History / Comment(s): quit smoking 20 yrs ago, smoked for 20 yrs Past Drug Use History: None Reported - Past Family History Mother Family Medical History: Cancer, CVA/TIA, Pulmonary Embolus Additional Family Medical History / Comment(s): breast cancer Father Family Medical History: CVA/TIA, Myocardial Infarction ([place]) Additional Family Medical History / Comment(s): . Brother(s) Family Medical History: Congestive Heart Failure (CHF) Additional Family Medical History / Comment(s): CABG Medications and Allergies Home Medications Medication Instructions Recorded Confirmed Type Gabapentin [Neurontin] 100 mg PO BID #6 cap 07/28/21 08/28/23 Rx Pantoprazole Sodium [Protonix] 40 mg PO BID 11/12/21 08/28/23 History Metoprolol Succinate (ER) [Toprol 25 mg PO DAILY 04/24/23 08/28/23 History XL] Pioglitazone [Actos] 15 mg PO DAILY 04/24/23 08/28/23 History Triamcinolone 0.1% Cream [Kenalog 1 applic TOPICAL BID PRN 04/24/23 08/28/23 History 0.1% Cream] rOPINIRole HCL 0.25 mg PO HS 04/24/23 08/28/23 History Naproxen Sodium [Aleve] 440 mg PO BID PRN 08/28/23 08/28/23 History Allergies Allergy/AdvReac Type Severity Reaction Status Date / Time morphine Allergy Rash/Hives Verified 08/28/23 10:43 sulfamethoxazole AdvReac Abdominal Verified 08/28/23 10:43 [From Bactrim] Pain trimethoprim [From Bactrim] AdvReac Abdominal Verified 08/28/23 10:43 Pain Physical Exam Vitals: Vital Signs Temp Pulse Pulse Resp BP BP Pulse Ox 08/29/23 02:00 97.7 F 73 16 157/71 94 L 08/28/23 19:51 97.6 F 109 H 16 158/57 93 L 08/28/23 17:55 98.2 F 82 20 145/70 99 08/28/23 16:14 77 18 143/74 97 08/28/23 14:00 69 18 168/100 98 08/28/23 13:00 82 16 140/64 97 08/28/23 12:00 71 18 140/70 96 08/28/23 11:00 66 16 151/67 99 08/28/23 10:00 68 18 154/59 98 08/28/23 09:00 78 18 149/73 98 Intake and Output 08/28/23 08/29/23 08/29/23 22:59 06:59 14:59 Intake Total 120 Balance 120 Intake: Oral 120 Other: Voiding Method Toilet # Voids 2 1 # Bowel Movements 2 Weight 97.522 kg Results 08/28/23 08:00 08/28/23 08:00 Cardiac Enzymes 08/28/23 08/28/23 08/28/23 Range/Units 08:00 08:00 12:05 AST 26 (14-36) U/L Troponin I <0.012 <0.012 (0.000-0.034) ng/mL 08/28/23 Range/Units 15:12 AST (14-36) U/L Troponin I <0.012 (0.000-0.034) ng/mL Coagulation 08/28/23 Range/Units 08:00 PT 10.3 (10.0-12.5) sec APTT 22.5 (22.0-30.0) sec Comprehensive Metabolic Panel 08/28/23 Range/Units 08:00 Sodium 142 (137-145) mmol/L Potassium 4.5 (3.5-5.1) mmol/L Chloride 111 H (98-107) mmol/L Carbon Dioxide 24 (22-30) mmol/L BUN 23 H (7-17) mg/dL Creatinine 1.12 H (0.52-1.04) mg/dL Glucose 167 H (74-99) mg/dL Calcium 9.5 (8.4-10.2) mg/dL AST 26 (14-36) U/L ALT 17 (4-34) U/L Alkaline Phosphatase 128 H (38-126) U/L Total Protein 6.8 (6.3-8.2) g/dL Albumin 4.0 (3.5-5.0) g/dL Current Medications Generic Name Dose Route Start Last Admin Trade Name Freq PRN Reason Stop Dose Admin Acetaminophen 650 mg 08/28/23 10:01 08/29/23 04:41 Acetaminophen Tab 325 Mg Tab PO 650 mg Q6HR PRN Administration Mild Pain or Fever > 100.5 Gabapentin 100 mg 08/28/23 21:00 08/28/23 20:21 Gabapentin 100 Mg Cap PO 100 mg BID MARK Administration Sodium Chloride 1,000 mls @ 75 mls/hr 08/28/23 10:00 08/29/23 02:07 Saline 0.9% IV Not Given .[id number] MARK Insulin Aspart 0 unit 08/28/23 21:00 08/29/23 06:16 Insulin Aspart (Novolog) 100 Unit/Ml Vial SQ Not Given ACHS [facility] Protocol Metoprolol Succinate 25 mg 08/29/23 09:00 Metoprolol Succinate (Er) 25 Mg Tab.Er.24h PO DAILY MARK Naloxone HCl 0.2 mg 08/28/23 10:01 Naloxone 0.4 Mg/Ml 1 Ml Vial IV Q2M PRN Opioid Reversal Ondansetron HCl 4 mg 08/28/23 10:01 08/28/23 20:21 Ondansetron 4 Mg/2 Ml Vial IVP 4 mg Q8HR PRN Administration Nausea And Vomiting Pantoprazole Sodium 40 mg 08/28/23 21:00 08/28/23 20:22 Pantoprazole 40 Mg/10 Ml Vial IVP 40 mg BID MARK Administration Ropinirole HCl 0.25 mg 08/28/23 21:00 08/28/23 20:42 Ropinirole Hcl 0.25 Mg Tab PO 0.25 mg HS MARK Administration Intake and Output 08/28/23 08/29/23 08/29/23 22:59 06:59 14:59 Intake Total 120 Balance 120 Intake: Oral 120 Other: Voiding Method Toilet # Voids 2 1 # Bowel Movements 2 Weight 97.522 kg 08/28/23 08:00 08/28/23 08:00
[2023-08-29] MEDS: METOPROLOL SUCCINATE (ER) 25 MG TAB.ER.24H PO SCH (09:00)
--- NOTE | 2023-08-29 11:31 | CA ---
Transthoracic Echo Report Name: Adriana Calderón Age: 68 Gender: F : 1955 Exam Date: 08/29/2023 09:10 Exam Location: [facility] Ht (in): 59 Wt (lb): 215 Ordering Physician: Kira Roche Attending/Referring Phys: [id number], Kaley General Adjuster Jenelle Osei RCS Procedure CPT: Indications: LVF Cardiac Hx: Technical Quality: Fair Contrast 1: Total Dose (mL): Contrast 2: Total Dose (mL): MEASUREMENTS (Male / Female) Normal Values 2D ECHO LV Diastolic Diameter PLAX 4.7 cm 4.2 - 5.9 / 3.9 - 5.3 cm LV Systolic Diameter PLAX 2.8 cm IVS Diastolic Thickness 0.8 cm 0.6 - 1.0 / 0.6 - 0.9 cm LVPW Diastolic Thickness 0.7 cm 0.6 - 1.0 / 0.6 - 0.9 cm LV Relative Wall Thickness 0.3 RV Internal Dim ED PLAX 2.4 cm LVOT Diameter 2.1 cm LV Diastolic Volume MOD BP 86.1 cm??? 67 - 155 / 56 - 104 cm??? LV Systolic Volume MOD BP 32.4 cm??? 22 - 58 / 19 - 49 cm??? LV Ejection Fraction MOD BP 62.3 % >= 55 % LV Cardiac Index MOD BP 2302.4 cm???/min???m??? LV Diastolic Volume MOD 4C 80.4 cm??? LV Systolic Volume MOD 4C 31.6 cm??? LV Ejection Fraction MOD 4C 60.7 % LV Cardiac Index MOD 4C 2092.8 cm???/min???m??? LV Diastolic Length 4C 7.4 cm LV Systolic Length 4C 6.4 cm LV Diastolic Volume MOD 2C 87.8 cm??? LV Systolic Volume MOD 2C 32.9 cm??? LV Ejection Fraction MOD 2C 62.6 % LV Cardiac Index MOD 2C 2356.3 cm???/min???m??? LV Diastolic Length 2C 7.8 cm LV Systolic Length 2C 6.3 cm LA Volume 50.5 cm??? 18 - 58 / 22 - 52 cm??? LA Volume Index 24.3 cm???/m??? 16 - 28 cm???/m??? Ascending Aorta Diameter 3.1 cm DOPPLER AV Peak Velocity 135.4 cm/s AV Peak Gradient 7.3 mmHg AV Mean Velocity 87.3 cm/s AV Mean Gradient 3.6 mmHg AV Velocity Time Integral 28.8 cm LVOT Peak Velocity 123.7 cm/s LVOT Peak Gradient 6.1 mmHg LVOT Velocity Time Integral 24.5 cm LVOT Stroke Volume 88.0 cm??? LVOT Stroke Volume Index 46.3 ml/m??? LVOT Cardiac Index 3772.8 cm???/min???m??? AV Area Cont Eq vti 3.1 cm??? AV Area Cont Eq pk 3.3 cm??? TR Peak Velocity 239.9 cm/s TR Peak Gradient 23.0 mmHg Right Ventricular Systolic Press 33.0 mmHg PV Peak Velocity 104.0 cm/s PV Peak Gradient 4.3 mmHg FINDINGS Left Ventricle Left ventricular ejection fraction is estimated at 55-60 %. Left ventricular cavity size normal. Left ventricular wall thickness normal. No obvious regional wall motion abnormalities. Right Ventricle Normal right ventricular size and function. Right ventricular systolic pressure within normal limits. Right Atrium Normal right atrial size. Left Atrium Normal left atrial size. Mitral Valve Structurally normal mitral valve. No evidence for mitral valve prolapse. No mitral stenosis. Trace mitral regurgitation. Aortic Valve Trileaflet aortic valve. No aortic stenosis. No aortic regurgitation. Tricuspid Valve Structurally normal tricuspid valve. No tricuspid stenosis. Trace tricuspid regurgitation. Pulmonic Valve Structurally normal pulmonic valve. No pulmonic stenosis. Trace pulmonic regurgitation. Pericardium No pericardial effusion. Aorta Normal size aortic root and proximal ascending aorta. CONCLUSIONS Normal LV systolic function Previewed by: Dr. Filipe Reeves MD (Electronically Signed) Final Date: 29 August 2023 11:30
[2023-08-29] MEDS: ACETAMINOPHEN IV (For NPO) 1,000 MG in EMPTY BAG 1 BAG IVPB STA (11:51)
[2023-08-29] MEDS: methylPREDNISolone SOD SUCCI 40 MG/ML 1 ML VIAL IV STA (11:52)
[2023-08-29 11:54] LABS: Glucose,Whole Blood 160 mg/dL (70-110)
[2023-08-29] MEDS: MAGNESIUM SULFATE-D5W PMX 1 GM in DEXTROSE/WATER 1 100ML.BAG IVPB ONE (12:47)
[2023-08-29] MEDS: LACTOBACILLUS ACIDOPHILUS/PECT 1 EACH CAPSULE PO SCH (12:47)
[2023-08-29 15:05] VITALS: BP 125/83; PULSE 71; RESP 18; TEMP 97.2
--- NOTE | 2023-08-29 15:07 | P.HPIM ---
History of Present Illness H&P Date: 08/29/23 Chief Complaint: Midsternal pain, nausea, headache History and Physical and Discharge Summary: This is a 68-year-old female with past medical history significant for chronic abdominal pain with chronic nausea, CAD, diabetes mellitus type 2, hypertension, chronic kidney disease stage III, peripheral vascular disease, prior nicotine dependence and multiple other medical issues presented to the ER with complaints of chest pain. Reports midsternal chest pain radiating down her right rib cage to the back accompanied by headache and diffuse abdominal pain. Patient reports on Wednesday 08/23 she sustained a significant fall; walking around a corner, clipped a shelf, flung off balance, fell, twisted her back ,landed on her right side. Midsternal cartilage tenderness reproducible to palpation. Reports her chronic diarrhea as previously, some days normal bowel movement, other days diarrhea. Reports consumption of carbonated pop helps her. Pepsi at the bedside. Last bowel movement yesterday, softer. Patient is n.p.o., complains of headache, m aintained on IV fluid hydration. Denies lightheadedness, dizziness or focal deficits. Denies double or blurred vision. KUB reported scattered small air- fluid levels within small bowel loops in the abdomen, no significant stool burden , no dilated small bowel, small amount of air distally in the rectum, no evidence for free intraperitoneal air. EKG reported sinus rhythm, sinus arrhythmia, troponins negative x 3. chest x-ray reported nonacute. Echo pending . Afebrile, normal WBC. Blood sugars controlled. Hemoglobin 10.8, platelets 281, INR 0.9, electrolytes within normal limits, BUN 23, creatinine 1.12, magnesium 1.5. Review of Systems ROS Statement: Those systems with pertinent positive or pertinent negative responses have been documented in the HPI. ROS Other: All systems not noted in ROS Statement are negative. 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 bowel resection for obstruction, amalia cataracts, Past Anesthesia/Blood Transfusion Reactions: No Reported Reaction Past Psychological History: No Psychological Hx Reported Additional Psychological History / Comment(s): short term memory loss Smoking Status: Former smoker Past Alcohol Use History: None Reported Additional Past Alcohol Use History / Comment(s): quit smoking 20 yrs ago, smoked for 20 yrs Past Drug Use History: None Reported - Past Family History Mother Family Medical History: Cancer, CVA/TIA, Pulmonary Embolus Additional Family Medical History / Comment(s): breast cancer Father Family Medical History: CVA/TIA, Myocardial Infarction ([place]) Additional Family Medical History / Comment(s): . Brother(s) Family Medical History: Congestive Heart Failure (CHF) Additional Family Medical History / Comment(s): CABG Medications and Allergies Home Medications Medication Instructions Recorded Confirmed Type Gabapentin [Neurontin] 100 mg PO BID #6 cap 07/28/21 08/28/23 Rx Pantoprazole Sodium [Protonix] 40 mg PO BID 11/12/21 08/28/23 History Metoprolol Succinate (ER) [Toprol 25 mg PO DAILY 04/24/23 08/28/23 History XL] Pioglitazone [Actos] 15 mg PO DAILY 04/24/23 08/28/23 History Triamcinolone 0.1% Cream [Kenalog 1 applic TOPICAL BID PRN 04/24/23 08/28/23 History 0.1% Cream] rOPINIRole HCL 0.25 mg PO HS 04/24/23 08/28/23 History predniSONE 10 mg PO DIRECTED #30 tab 08/29/23 Rx Allergies Allergy/AdvReac Type Severity Reaction Status Date / Time morphine Allergy Rash/Hives Verified 08/28/23 10:43 sulfamethoxazole AdvReac Abdominal Verified 08/28/23 10:43 [From Bactrim] Pain trimethoprim [From Bactrim] AdvReac Abdominal Verified 08/28/23 10:43 Pain Physical Exam Vitals: Vital Signs Temp Pulse Pulse Resp BP BP Pulse Ox 08/29/23 07:00 97.6 F 90 20 161/85 98 08/29/23 02:00 97.7 F 73 16 157/71 94 L 08/28/23 19:51 97.6 F 109 H 16 158/57 93 L 08/28/23 17:55 98.2 F 82 20 145/70 99 08/28/23 16:14 77 18 143/74 97 08/28/23 14:00 69 18 168/100 98 08/28/23 13:00 82 16 140/64 97 Intake and Output 08/28/23 08/29/23 08/29/23 22:59 06:59 14:59 Intake Total 120 Balance 120 Intake: Oral 120 Other: Voiding Method Toilet # Voids 2 1 1 # Bowel Movements 2 Weight 97.522 kg VITAL SIGNS: [As above] GENERAL: Alert and oriented 3, Sitting up in bed, Eyes: PERRL, EOMI, conjunctiva normal, oral mucosa dry HENT: normocephalic, MMM. Neck: supple, no JVD Lungs: Unlabored, equal air entry ,normal respiratory effort, bilateral bases diminished. Reproducible midsternal tenderness to palpation. CV: Regular rate and rhythm, no murmur. Peripheral pulses 2+ Abdomen: soft, nondistended,diffuse abdominal tenderness,no organomegaly, no guarding, no rigidity .positive bowel sounds. Skin: warm and dry. Neuro: Cranial nerves 2 through 12 grossly intact, no focal deficits Results CBC & Chem 7: 08/28/23 08:00 08/28/23 08:00 Labs: Abnormal Lab Results - Last 24 Hours (Table) 08/28/23 08/28/23 08/29/23 Range/Units 17:53 20:26 11:49 POC Glucose (mg/dL) 134 H 195 H 160 H (70-110) mg/dL Assessment and Plan Assessment: Costochondritis secondary to recent fall, in a patient with reproducible midsternal/chest pain , troponins negative x 3, cardiology following Chronic abdominal pain, nausea and diarrhea History of multiple abdominal surgeries chronic Renal Failure, stage III Chronic anemia, macrocytic secondary to the above Gastroesophageal reflux disease history of migraines CAD PVD Hypertension Diabetes Melllitus II History of Covid infection Memory impairment, history of Obesity, BMI 37.8 Plan: Continue on current medication regime. Probiotic, steroid ordered.magnesium 1 g IV plus IV Tylenol 1 g IV for headache ordered. recommend patient continue on probiotic, magnesium glycinate 400 mg daily at PR. echo reported normal LV systolic function. Cleared by cardiology for discharge. Staff reports headache subsided.Patient will be discharged home today in a stable condition with guarded prognosis. Discharge Medication List Gabapentin [Neurontin] 100 mg PO BID #6 cap 07/28/21 [Rx] Pantoprazole Sodium [Protonix] 40 mg PO BID 11/12/21 [History] Metoprolol Succinate (ER) [Toprol XL] 25 mg PO DAILY 04/24/23 [History] Pioglitazone [Actos] 15 mg PO DAILY 04/24/23 [History] Triamcinolone 0.1% Cream [Kenalog 0.1% Cream] 1 applic TOPICAL BID PRN 04/24/23 [History] rOPINIRole HCL 0.25 mg PO HS 04/24/23 [History] predniSONE 10 mg PO DIRECTED #30 tab 08/29/23 [Rx] The impression and plan of care has been dictated as directed. : I performed a history and examination of this patient, discussed the same with the dictator. I agree with the dictator's note ,documented as a scribe. Any additional findings or plans will be noted.
[2023-08-30] MEDS ORDERED: predniSONE 20 MG TAB PO SCH (09:00)
== END 2023-08-29 15:16 | disposition home or self-care (01) ==
LOC: EC 07:25 → 6NMEDSUR 10:02
PROVIDERS: ADMIT Family Medicine; ATTEND Family Medicine
DX: R07.89 Other chest pain (principal); M54.50 Low back pain, unspecified; I25.10 Atherosclerotic heart disease of native coronary artery without angina pectoris; K21.9 Gastro-esophageal reflux disease without esophagitis; I08.1 Rheumatic disorders of both mitral and tricuspid valves; E78.5 Hyperlipidemia, unspecified; M19.90 Unspecified osteoarthritis, unspecified site; E11.51 Type 2 diabetes mellitus with diabetic peripheral angiopathy without gangrene; E66.9 Obesity, unspecified; E11.22 Type 2 diabetes mellitus with diabetic chronic kidney disease; N18.30 Chronic kidney disease, stage 3 unspecified; E11.40 Type 2 diabetes mellitus with diabetic neuropathy, unspecified; Z79.899 Other long term (current) drug therapy; Z79.84 Long term (current) use of oral hypoglycemic drugs; Z11.52 Encounter for screening for COVID-19; Z88.5 Allergy status to narcotic agent; Z88.2 Allergy status to sulfonamides; Z88.8 Allergy status to other drugs, medicaments and biological substances; Z98.61 Coronary angioplasty status; Z82.49 Family history of ischemic heart disease and other diseases of the circulatory system; Z87.891 Personal history of nicotine dependence; Z68.37 Body mass index [BMI] 37.0-37.9, adult
CPT/HCPCS: 96376 ×2; 96361; 96365; 96366 ×2; 96367 ×2; 96375 ×2; 99285; 36415; 93005; 93306; 80053; 83690; 83735; 84484; 85025; 85610; 85730; 81001; 87086; 87077; 87186; 87636; 71046; 74018; G0378 ×2; J2920; J2405; J0696; J3475; J0131; C9113 ×2

== ENCOUNTER 2023-10-05 14:44 | Observation (INO) | payer MEDICARE ==
[2023-10-05] MEDS: SODIUM CHLORIDE 0.9% 1,000 ML IV ONE (16:45)
[2023-10-05] MEDS: HYDROmorphone 1 MG/ML 1 ML SYRINGE IVP STA ×2 (16:45→20:18)
[2023-10-05] MEDS: ONDANSETRON 4 MG/2 ML VIAL IVP STA (16:45)
[2023-10-05 17:06] LABS: Basophils # (A) 0.1 k/uL (0-0.2); Basophils % (A) 1 %; Eosinophils # (A) 0.1 k/uL (0-0.7); Eosinophils % (A) 1 %; HGB 11.6 gm/dL (11.4-16.0); Hypochromasia Slight; Lymphocytes # (A) 1.2 k/uL (1.0-4.8); Lymphocytes % (A) 17 %; MCH 29.3 pg (25.0-35.0); MCHC 31.3 g/dL (31.0-37.0); MCV 93.8 fL (80.0-100.0); Mean Platelet Volume 7.5; Monocytes # (A) 0.3 k/uL (0-1.0); Monocytes % (A) 4 %; Neutrophils # (A) 5.3 k/uL (1.3-7.7); Neutrophils % (A) 77 %; Platelet Count 361 k/uL (150-450); RBC 3.95 m/uL (3.80-5.40); RDW 15.2 % (11.5-15.5); WBC 6.9 k/uL (3.8-10.6)
[2023-10-05 17:37] LABS: Appearance,Urine Cloudy (Clear); Bacteria,Urine Rare /hpf; Bilirubin,Urine Negative (Negative); Blood,Urine Small (Negative); Color,Urine Yellow; Glucose,Urine (UA) Negative (Negative); Hyaline Casts,Urine 21 /lpf (0-2); Ketones,Urine 1+ (Negative); Leukocyte Esterase,Urine Moderate (Negative); Mucus,Urine Occasional /hpf; Nitrite,Urine Negative (Negative); PH, Urine 5.5 (5.0-8.0); Protein,Urine Trace (Negative); RBC,Urine 2 /hpf (0-5); Specific Gravity,Urine 1.032 (1.001-1.035); Squamous Epithelial Cell,Urine 15 /hpf (0-4); Urobilinogen,Urine <2.0 mg/dL (<2.0); WBC,Urine 9 /hpf (0-5)
[2023-10-05 17:50] LABS: ALT 20 U/L (4-34); AST 35 U/L (14-36); African American GFR (CKD) 53 (>60 ml/min/1.73 sqM); Albumin 4.5 g/dL (3.5-5.0); Alkaline Phosphatase 117 U/L (38-126); Anion Gap 8 mmol/L; Blood Urea Nitrogen 30 mg/dL (7-17); Calcium 9.7 mg/dL (8.4-10.2); Carbon Dioxide 23 mmol/L (22-30); Chloride 108 mmol/L (98-107); Glucose 187 mg/dL (74-99); Lipase 88 U/L (23-300); Non-African American GFR(CKD) 46 (>60 ml/min/1.73 sqM); Potassium 4.4 mmol/L (3.5-5.1); Sodium 139 mmol/L (137-145); Total Bilirubin 0.4 mg/dL (0.2-1.3); Total Protein 7.6 g/dL (6.3-8.2)
--- NOTE | 2023-10-05 18:54 | ED ---
Abdominal Pain HPI - General Chief Complaint: Abdominal Pain Stated Complaint: Abd pain Time Seen by Provider: 10/05/23 15:43 Source: patient Mode of arrival: ambulatory Limitations: no limitations - History of Present Illness Initial Comments: 68-year-old female with past medical history of hiatal hernia, diabetes who presents emergency department with epigastric pain. States that she does have a history of chronic abdominal pain however over the past 5 days the pain has been much worse. She went into urgent care today however she was sent to the hospital for further testing. She does have history of previous abdominal resection due to bowel obstruction. She has also had multiple hernia repairs. Her surgeon is Dr. Rangel however she requests a new surgeon as she no longer wants to follow with him. Patient admits to nausea with vomiting. She has had a poor appetite. is at bedside and helps supplement the history. Denies any fevers. No hematemesis. No dysuria, hematuria or difficulty voiding. No other alleviating, precipitating or modifying factors - Related Data Home Medications Medication Instructions Recorded Confirmed Pantoprazole Sodium [Protonix] 40 mg PO AC-BID 11/12/21 10/05/23 Metoprolol Succinate (ER) [Toprol 25 mg PO DAILY 04/24/23 10/05/23 XL] Pioglitazone [Actos] 15 mg PO DAILY 04/24/23 10/05/23 Triamcinolone 0.1% Cream [Kenalog 1 applic TOPICAL BID PRN 04/24/23 10/05/23 0.1% Cream] rOPINIRole HCL 0.25 mg PO HS 04/24/23 10/05/23 Aspirin EC [Ecotrin Low Dose] 81 mg PO DAILY 10/05/23 10/05/23 Aspirin/Acetaminophen/Caffeine 2 tab PO DAILY PRN 10/05/23 10/05/23 [Excedrin Migraine Caplet] Clotrimazole Cream [Lotrimin Cream] 1 applic TOPICAL DAILY PRN 10/05/23 10/05/23 Dicyclomine [Bentyl] 20 mg PO QID PRN 10/05/23 10/05/23 Diphenoxylate HCl/Atropine 2 tab PO BID PRN 10/05/23 10/05/23 [Lomotil 2.5-0.025 mg Tablet] Losartan [Cozaar] 50 mg PO DAILY 10/05/23 10/05/23 Naproxen Sodium [Aleve] 220 mg PO DAILY PRN 10/05/23 10/05/23 Nystatin 100,000Unit/gm Cream 1 applic TOPICAL BID PRN 10/05/23 10/05/23 [Mycostatin Cream] Previous Rx's Medication Instructions Recorded Gabapentin [Neurontin] 100 mg PO BID #6 cap 07/28/21 Allergies Allergy/AdvReac Type Severity Reaction Status Date / Time morphine Allergy Rash/Hives Verified 10/05/23 20:37 sulfamethoxazole AdvReac Abdominal Verified 10/05/23 20:37 [From Bactrim] Pain trimethoprim [From Bactrim] AdvReac Abdominal Verified 10/05/23 20:37 Pain Review of Systems ROS Statement: Those systems with pertinent positive or pertinent negative responses have been documented in the HPI. ROS Other: All systems not noted in ROS Statement are negative. 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 bowel resection for obstruction, amalia cataracts, Past Anesthesia/Blood Transfusion Reactions: No Reported Reaction Past Psychological History: No Psychological Hx Reported Smoking Status: Former smoker Past Alcohol Use History: None Reported Past Drug Use History: None Reported - Past Family History Mother Family Medical History: Cancer, CVA/TIA, Pulmonary Embolus Additional Family Medical History / Comment(s): breast cancer Father Family Medical History: CVA/TIA, Myocardial Infarction (MS) Additional Family Medical History / Comment(s): . Brother(s) Family Medical History: Congestive Heart Failure (CHF) Additional Family Medical History / Comment(s): CABG General Exam Limitations: no limitations General appearance: alert, in no apparent distress Head exam: Present: atraumatic, normocephalic, normal inspection Eye exam: Present: normal appearance, PERRL, EOMI. Absent: scleral icterus, conjunctival injection, periorbital swelling ENT exam: Present: normal exam, mucous membranes moist Neck exam: Present: normal inspection. Absent: tenderness, meningismus, lymp hadenopathy Respiratory exam: Present: normal lung sounds bilaterally. Absent: respiratory distress, wheezes, rales, rhonchi, stridor Cardiovascular Exam: Present: regular rate, normal rhythm, normal heart sounds. Absent: systolic murmur, diastolic murmur, rubs, gallop, clicks GI/Abdominal exam: Present: soft, tenderness (Epigastric), normal bowel sounds. Absent: distended, guarding, rebound, rigid Extremities exam: Present: normal inspection, full ROM, normal capillary refill. Absent: tenderness, pedal edema, joint swelling, calf tenderness Back exam: Present: normal inspection Neurological exam: Present: alert, oriented X3, CN II-XII intact Psychiatric exam: Present: normal affect, normal mood Skin exam: Present: warm, dry, intact, normal color. Absent: rash Course Vital Signs 10/05/23 10/05/23 10/05/23 14:59 16:01 18:00 Temperature 98.3 F Pulse Rate 74 100 78 Respiratory 24 20 20 Rate Blood Pressure 129/68 140/89 140/87 O2 Sat by Pulse 99 98 98 Oximetry 10/05/23 21:33 Temperature Pulse Rate 81 Respiratory 18 Rate Blood Pressure 145/66 O2 Sat by Pulse 96 Oximetry Medical Decision Making - Medical Decision Making Was pt. sent in by a medical professional or institution (, PA, CURING FINISHER, urgent care, hospital, or usp...) When possible be specific @ -No Did you speak to anyone other than the patient for history (EMS, parent, family, police, friend...)? What history was obtained from this source @ -Spoke with the patient's in regards to the symptoms Did you review nursing and triage notes (agree or disagree)? Why? @ -I reviewed and agree with nursing and triage notes Were old charts reviewed (outside hosp., previous admission, EMS record, old EKG, old radiological studies, urgent care reports/EKG's, usp records)? Report findings @ -Reviewed patient's previous records including imaging of her abdomen from March 2023 Differential Diagnosis (chest pain, altered mental status, abdominal pain women, abdominal pain men, vaginal bleeding, weakness, fever, dyspnea, syncope, headache, dizziness, GI bleed, back pain, seizure, CVA, palpatations, mental health, musculoskeletal)? @ -Differential Abdominal Pain Women: Appendicitis, Cholecystitis, diverticulosis, ischemic bowel, pancreatitis, hepatitis, UTI, gastroenteritis, AAA, incarcerated hernia, bowel obstruction, constipation, inflammatory bowel, hepatitis, peptic ulcer disease, splenic infarction, perforated viscus, vulvitis, ovarian torsion, PID, kidney stone, placenta abruption, this is not meant to be an all-inclusive list EKG interpreted by me (3pts min.). @ -Yes and demonstrates sinus rhythm with rate of 68. AL interval 180. QRS 94. QTc of 404. No acute ST segment elevations or depressions X-rays interpreted by me (1pt min.). @ -None done CT interpreted by me (1pt min.). @ -Yes and demonstrates postop changes with possible scar tissue U/S interpreted by me (1pt. min.). @ -None done What testing was considered but not performed or refused? (CT, X-rays, U/S, labs)? Why? @ -None What meds were considered but not given or refused? Why? @ -None Did you discuss the management of the patient with other professionals (professionals i.e. , PA, CURING FINISHER, lab, RT, psych nurse, social science professor, power switchboard operator, teacher, patrol officer, case specialist)? Give summary @ -Spoke with Dr. quiroga will admit the patient on behalf of Dr. mohamud Was smoking cessation discussed for >3mins.? @ -No Was critical care preformed (if so, how long)? @ -No Were there social determinants of health that impacted care today? How? (Homele ssness, low income, unemployed, alcoholism, drug addiction, transportation, low edu. Level, literacy, decrease access to med. care, residential, rehab)? @ -No Was there de-escalation of care discussed even if they declined (Discuss DNR or withdrawal of care, Hospice)? DNR status @ -No What co-morbidities impacted this encounter? (DM, HTN, Smoking, COPD, CAD, Cancer, CVA, ARF, Chemo, Hep., AIDS, mental health diagnosis, sleep apnea, morbid obesity)? @ -Small bowel obstructions with resection Was patient admitted / discharged? Hospital course, mention meds given and route, prescriptions, significant lab abnormalities, going to OR and other pertinent info. @ -Upon arrival patient was seen and evaluated in room 21. Thorough history and physical exam was performed. IV access was established. Laboratory studies were conducted. Patient was given pain and nausea medications. CT was performed. Upon return the results patient is having return of her pain and requires a second dose of pain medication. I did discuss the diagnosis, alternative treatment options. Patient does have return of her pain once again. I informed her that I recommend admission with surgical consultation due to unc ontrolled abdominal pain. Patient was agreeable to this. Spoke with Dr. Quiroga for admission Undiagnosed new problem with uncertain prognosis? @ -Yes Drug Therapy requiring intensive monitoring for toxicity (Heparin, Nitro, Insulin, Cardizem)? @ -No Were any procedures done? @ -No Diagnosis/symptom? @ -Acute exacerbation of epigastric abdominal pain, history of small bowel obstruction Acute, or Chronic, or Acute on Chronic? @ -Acute on chronic Uncomplicated (without systemic symptoms) or Complicated (systemic symptoms)? @ -Complicated Side effects of treatment? @ -No Exacerbation, Progression, or Severe Exacerbation? @ -No Poses a threat to life or bodily function? How? (Chest pain, USA, MS, pneumonia, PE, COPD, DKA, ARF, appy, cholecystitis, CVA, Diverticulitis, Homicidal, Suicid al, threat to staff... and all critical care pts) @ -No - Lab Data Result diagrams: 10/07/23 06:56 10/07/23 06:56 Lab Results 10/05/23 10/05/23 10/05/23 Range/Units 16:49 16:54 16:54 WBC 6.9 (3.8-10.6) k/uL RBC 3.95 (3.80-5.40) m/uL Hgb 11.6 (11.4-16.0) gm/dL Hct 37.0 (34.0-46.0) % MCV 93.8 (80.0-100.0) fL MCH 29.3 (25.0-35.0) pg MCHC 31.3 (31.0-37.0) g/dL RDW 15.2 (11.5-15.5) % Plt Count 361 (150-450) k/uL MPV 7.5 Neutrophils % 77 % Lymphocytes % 17 % Monocytes % 4 % Eosinophils % 1 % Basophils % 1 % Neutrophils # 5.3 (1.3-7.7) k/uL Lymphocytes # 1.2 (1.0-4.8) k/uL Monocytes # 0.3 (0-1.0) k/uL Eosinophils # 0.1 (0-0.7) k/uL Basophils # 0.1 (0-0.2) k/uL Hypochromasia Slight Sodium 139 (137-145) mmol/L Potassium 4.4 (3.5-5.1) mmol/L Chloride 108 H (98-107) mmol/L Carbon Dioxide 23 (22-30) mmol/L Anion Gap 8 mmol/L BUN 30 H (7-17) mg/dL Creatinine 1.23 H (0.52-1.04) mg/dL Est GFR (CKD-EPI)AfAm 53 (>60 ml/min/1.73 sqM) Est GFR (CKD-EPI)NonAf 46 (>60 ml/min/1.73 sqM) Glucose 187 H (74-99) mg/dL Lactic Ac Sepsis Rflx Plasma Lactic Acid [place] 2.2 H* (0.7-2.0) mmol/L Calcium 9.7 (8.4-10.2) mg/dL Total Bilirubin 0.4 (0.2-1.3) mg/dL AST 35 (14-36) U/L ALT 20 (4-34) U/L Alkaline Phosphatase 117 (38-126) U/L Total Protein 7.6 (6.3-8.2) g/dL Albumin 4.5 (3.5-5.0) g/dL Lipase 88 (23-300) U/L Urine Color Urine Appearance (Clear) Urine pH (5.0-8.0) Ur Specific [place] (1.001-1.035) Urine Protein (Negative) Urine Glucose (UA) (Negative) Urine Ketones (Negative) Urine Blood (Negative) Urine Nitrite (Negative) Urine Bilirubin (Negative) Urine Urobilinogen (<2.0) mg/dL Ur Leukocyte Esterase (Negative) Urine RBC (0-5) /hpf Urine WBC (0-5) /hpf Ur Squamous Epith Cells (0-4) /hpf Urine Bacteria (None) /hpf Hyaline Casts (0-2) /lpf Urine Mucus (None) /hpf 10/05/23 10/05/23 10/05/23 Range/Units 16:54 17:27 19:42 WBC (3.8-10.6) k/uL RBC (3.80-5.40) m/uL Hgb (11.4-16.0) gm/dL Hct (34.0-46.0) % MCV (80.0-100.0) fL MCH (25.0-35.0) pg MCHC (31.0-37.0) g/dL RDW (11.5-15.5) % Plt Count (150-450) k/uL MPV Neutrophils % % Lymphocytes % % Monocytes % % Eosinophils % % Basophils % % Neutrophils # (1.3-7.7) k/uL Lymphocytes # (1.0-4.8) k/uL Monocytes # (0-1.0) k/uL Eosinophils # (0-0.7) k/uL Basophils # (0-0.2) k/uL Hypochromasia Sodium (137-145) mmol/L Potassium (3.5-5.1) mmol/L Chloride (98-107) mmol/L Carbon Dioxide (22-30) mmol/L Anion Gap mmol/L BUN (7-17) mg/dL Creatinine (0.52-1.04) mg/dL Est GFR (CKD-EPI)AfAm (>60 ml/min/1.73 sqM) Est GFR (CKD-EPI)NonAf (>60 ml/min/1.73 sqM) Glucose (74-99) mg/dL Lactic Ac Sepsis Rflx Y Plasma Lactic Acid [place] 1.5 (0.7-2.0) mmol/L Calcium (8.4-10.2) mg/dL Total Bilirubin (0.2-1.3) mg/dL AST (14-36) U/L ALT (4-34) U/L Alkaline Phosphatase (38-126) U/L Total Protein (6.3-8.2) g/dL Albumin (3.5-5.0) g/dL Lipase (23-300) U/L Urine Color Yellow Urine Appearance Cloudy H (Clear) Urine pH 5.5 (5.0-8.0) Ur Specific [place] 1.032 (1.001-1.035) Urine Protein Trace H (Negative) Urine Glucose (UA) Negative (Negative) Urine Ketones 1+ H (Negative) Urine Blood Small H (Negative) Urine Nitrite Negative (Negative) Urine Bilirubin Negative (Negative) Urine Urobilinogen <2.0 (<2.0) mg/dL Ur Leukocyte Esterase Moderate H (Negative) Urine RBC 2 (0-5) /hpf Urine WBC 9 H (0-5) /hpf Ur Squamous Epith Cells 15 H (0-4) /hpf Urine Bacteria Rare H (None) /hpf Hyaline Casts 21 H (0-2) /lpf Urine Mucus Occasional H (None) /hpf Disposition Clinical Impression: Intractable abdominal pain, Status post Josephine fundoplication, Vomiting Disposition: ADMITTED IP TO THIS [facility] Condition: Stable Is patient prescribed a controlled substance at d/c from ED?: No Time of Disposition: 20:35 Decision to Admit Reason: Admit from EC Decision Date: 10/05/23 Decision Time: 20:35
--- NOTE | 2023-10-05 19:42 | CT ---
EXAMINATION TYPE: CT abdomen pelvis w con CT DLP: 1265.3 mGycm, Automated exposure control for dose reduction was used. DATE OF EXAM: 10/05/2023 6:56 PM COMPARISON: CT 04/24/2023 and before CLINICAL INDICATION:Female, 68 years old with history of abd pain, hx bowel resection; abdominal pain post bowel resection TECHNIQUE: Axial CT of the abdomen and pelvis. Sagittal and coronal reformats were created on a [id number] workstation. Contrast used:80ml mL of Isovue 300 with IV Contrast, (none if empty) Oral contrast used: without Oral Contrast (none if empty) FINDINGS: LOWER CHEST: Mild bibasilar scarring and/or subsegmental atelectasis. Heart is mildly enlarged. Stabl e appearance of the GE junction with postop changes and possible small hiatal hernia. ABDOMEN LIVER: Unremarkable GALLBLADDER AND BILE DUCTS: The gallbladder is surgically absent. Biliary tree does not appear pathol ogically dilated. PANCREAS: Mildly fatty infiltrated without acute finding SPLEEN: Few calcified granulomas, otherwise unremarkable. ADRENAL GLANDS: Stable without evidence of mass.. KIDNEYS AND URETERS: Kidneys enhance symmetrically. Few low-density nodules bilaterally, likely cysts . The largest is 3.2 cm in the posterior left kidney in the lower pole. Symmetric contrast excretion . Minimally prominent bilateral extrarenal pelves without evidence of hydroureter. PELVIS BLADDER: Unremarkable REPRODUCTIVE: Uterus, presumed left ovary, and presumed high riding right ovary with small soft tissu e nodularity in the right lower quadrant, remain unchanged. ABDOMEN & PELVIS STOMACH AND BOWEL: Limited assessment without enteric contrast. Stomach is decompressed. Duodenal swe ep is patent. Postop changes from previous partial right hemicolectomy with apparent ileocolonic anas tomosis at the proximal transverse colon. Similar patulous appearance in the region of the anastomoti c site measuring up to 5.9 cm diameter, likely chronic postoperative changes. Again this segment is a pposed to the anterior abdominal wall, and adhesions could be present. There is no evidence of dilate d small bowel or transition point to suggest obstruction. The distal aspects of the colon appear rela tively decompressed without evidence of an acute abnormality. PERITONEUM/RETROPERITONEUM: No evidence of pneumoperitoneum or free fluid. VASCULATURE: Moderate atherosclerotic calcifications are present throughout the abdominal aorta and i ts branches. No evidence of aortic aneurysm. Portal veins are enhancing. Splenic vein and SMV paten t. LYMPH NODES: No enlarged nodes by CT size criteria. SOFT TISSUE/ABDOMINAL WALL: Unremarkable MUSCULOSKELETAL: No acute osseous abnormalities. Moderate disc degeneration changes are present throu ghout the thoracolumbar spine. IMPRESSION: 1. Overall stable findings compared to 04/23/2023. 2. No acute process identified.
[2023-10-05] MEDS: cefTRIAXone IN SWFI 1,000 MG/10 ML SYRINGE IVP STA (20:34)
[2023-10-05] MEDS ORDERED: NALOXONE 0.4 MG/ML 1 ML VIAL IV PRN (20:35)
[2023-10-05] MEDS: SODIUM CHLORIDE 0.9% 1,000 ML IV SCH (20:54)
[2023-10-06] MEDS: HYDROmorphone 1 MG/ML 1 ML SYRINGE IVP PRN (01:02)
[2023-10-06] MEDS ORDERED: DIPHENOX-ATROP 2.5-0.025 MG 1 EACH TAB PO PRN (08:08)
[2023-10-06] MEDS: ASPIRIN-ACET-CAFF 250-250-65MG 1 EACH TAB PO PRN (09:30)
[2023-10-06] MEDS: LOSARTAN 50 MG TAB PO SCH (09:30)
[2023-10-06] MEDS: PIOGLITAZONE 15 MG TAB PO SCH (09:30)
[2023-10-06] MEDS: METOPROLOL SUCCINATE (ER) 25 MG TAB.ER.24H PO SCH (09:30)
[2023-10-06] MEDS: ASPIRIN 81 MG PO SCH (09:30)
[2023-10-06] MEDS: GABAPENTIN 100 MG CAP PO SCH (09:30)
[2023-10-06 11:33] LABS: Basophils # (A) 0.04 X 10*3/uL (0.00-0.10); Basophils % (A) 0.7 %; Eosinophils # (A) 0.03 X 10*3/uL (0.04-0.35); Eosinophils % (A) 0.5 %; HCT 34.8 % (37.2-46.3); HGB 10.6 g/dL (12.0-15.0); Lymphocytes # (A) 1.13 X 10*3/uL (0.90-5.00); Lymphocytes % (A) 18.4 %; MCHC 30.5 g/dL (32.0-37.0); MCV 95.1 FL (80.0-97.0); Mean Platelet Volume 10.7 FL (9.5-12.2); Monocytes # (A) 0.44 X 10*3/uL (0.20-1.00); Monocytes % (A) 7.2 %; NRBC Per 100 WBC 0 X 10*3/uL (0.00-0.01); Neutrophils # (A) 4.49 X 10*3/uL (1.80-7.70); Neutrophils % (A) 72.9 %; Platelet Count 261 X 10*3/uL (140-440); RBC 3.66 X 10*6/uL (4.10-5.20); RDW 15.9 % (11.5-14.5); WBC 6.15 X 10*3/uL (4.50-10.00)
[2023-10-06] MEDS: ONDANSETRON 4 MG/2 ML VIAL IVP PRN (12:25)
[2023-10-06 16:18] LABS: African American GFR (CKD) 66 (>60 ml/min/1.73 sqM); Anion Gap 10 mmol/L; Blood Urea Nitrogen 20 mg/dL (7-17); Calcium 8.5 mg/dL (8.4-10.2); Carbon Dioxide 17 mmol/L (22-30); Chloride 110 mmol/L (98-107); Glucose 119 mg/dL (74-99); Non-African American GFR(CKD) 57 (>60 ml/min/1.73 sqM); Potassium 4.7 mmol/L (3.5-5.1); Sodium 137 mmol/L (137-145)
[2023-10-06] MEDS: oxyCODONE-APAP 5-325MG 1 EACH TAB PO PRN (16:49)
[2023-10-06] MEDS: PANTOPRAZOLE 40 MG TABLET PO SCH (16:49)
--- NOTE | 2023-10-06 17:37 | P.HPIM ---
History of Present Illness H&P Date: 10/06/23 Chief Complaint: Intractable abdominal pain 68-year-old female with past medical history of hiatal hernia, diabetes, hyperlipidemia, coronary artery disease, who presents emergency department with epigastric pain. States that she does have a history of chronic abdominal pain however over the past 5 days the pain has been much worse. She went into urgent care today however she was sent to the hospital for further testing. She does have history of previous abdominal resection due to bowel obstruction. She has also had multiple hernia repairs. Her surgeon is Dr. Rangel however she requests a new surgeon as she no longer wants to follow with him. Patient admits to nausea with vomiting. She has had a poor appetite. is at bedside and helps supplement the history. Denies any fevers. No hematemesis. No dysuria, hematuria or difficulty voiding. No other alleviating, precipitating or modifying factors Blood work completed in ED reveals a WBC of 6.9, hemoglobin of 11.6 and platelet count of 361, sodium 139, potassium 4.4, BUNs/creatinine of 30/1.23 and blood glucose of 187, lactic acid of 2.2 UA is positive for leukocyte esterase, WBCs and few bacteria CT of the abdomen completed in ED and compared to 04/23/2023 revealed overall stable findings with no acute process identified Review of Systems REVIEW OF SYSTEMS: CONSTITUTIONAL: No fever, no malaise, no fatigue. HEENT: No recent visual problems or hearing problems. Denied any sore throat. CARDIOVASCULAR: No chest pain, orthopnea, PND, no palpitations, no syncope. PULMONARY: No shortness of breath, no cough, no hemoptysis. GASTROINTESTINAL: No diarrhea, no nausea, no vomiting, no abdominal pain. NEUROLOGICAL: No headaches, no weakness, no numbness. HEMATOLOGICAL: Denies any bleeding or petechiae. GENITOURINARY: Denies any burning micturition, frequency, or urgency. MUSCULOSKELETAL/RHEUMATOLOGICAL: Denies any joint pain, swelling, or any muscle pain. ENDOCRINE: Denies any polyuria or polydipsia. The rest of the 14-point review of systems is negative. 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 bowel resection for obstruction, amalia cataracts, Past Anesthesia/Blood Transfusion Reactions: No Reported Reaction Past Psychological History: No Psychological Hx Reported Smoking Status: Former smoker Past Alcohol Use History: None Reported Past Drug Use History: None Reported - Past Family History Mother Family Medical History: Cancer, CVA/TIA, Pulmonary Embolus Additional Family Medical History / Comment(s): breast cancer Father Family Medical History: CVA/TIA, Myocardial Infarction ([place]) Additional Family Medical History / Comment(s): . Brother(s) Family Medical History: Congestive Heart Failure (CHF) Additional Family Medical History / Comment(s): CABG Medications and Allergies Home Medications Medication Instructions Recorded Confirmed Type Gabapentin [Neurontin] 100 mg PO BID #6 cap 07/28/21 10/05/23 Rx Pantoprazole Sodium [Protonix] 40 mg PO AC-BID 11/12/21 10/05/23 History Metoprolol Succinate (ER) [Toprol 25 mg PO DAILY 04/24/23 10/05/23 History XL] Pioglitazone [Actos] 15 mg PO DAILY 04/24/23 10/05/23 History Triamcinolone 0.1% Cream [Kenalog 1 applic TOPICAL BID PRN 04/24/23 10/05/23 History 0.1% Cream] rOPINIRole HCL 0.25 mg PO HS 04/24/23 10/05/23 History Aspirin EC [Ecotrin Low Dose] 81 mg PO DAILY 10/05/23 10/05/23 History Aspirin/Acetaminophen/Caffeine 2 tab PO DAILY PRN 10/05/23 10/05/23 History [Excedrin Migraine Caplet] Clotrimazole Cream [Lotrimin Cream] 1 applic TOPICAL DAILY PRN 10/05/23 10/05/23 History Dicyclomine [Bentyl] 20 mg PO QID PRN 10/05/23 10/05/23 History Diphenoxylate HCl/Atropine 2 tab PO BID PRN 10/05/23 10/05/23 History [Lomotil 2.5-0.025 mg Tablet] Losartan [Cozaar] 50 mg PO DAILY 10/05/23 10/05/23 History Naproxen Sodium [Aleve] 220 mg PO DAILY PRN 10/05/23 10/05/23 History Nystatin 100,000Unit/gm Cream 1 applic TOPICAL BID PRN 10/05/23 10/05/23 History [Mycostatin Cream] Allergies Allergy/AdvReac Type Severity Reaction Status Date / Time morphine Allergy Rash/Hives Verified 10/05/23 20:37 sulfamethoxazole AdvReac Abdominal Verified 10/05/23 20:37 [From Bactrim] Pain trimethoprim [From Bactrim] AdvReac Abdominal Verified 10/05/23 20:37 Pain Physical Exam Vitals: Vital Signs Temp Pulse Pulse Resp BP BP Pulse Ox 10/06/23 07:50 97.9 F 74 17 153/73 96 10/06/23 02:48 97.7 F 77 16 124/74 95 10/05/23 22:29 97.4 F L 70 16 168/85 100 10/05/23 21:33 81 18 145/66 96 10/05/23 18:00 78 20 140/87 98 10/05/23 16:01 100 20 140/89 98 10/05/23 14:59 98.3 F 74 24 129/68 99 Intake and Output 10/05/23 10/06/23 10/06/23 22:59 06:59 14:59 Other: # Voids 1 Weight 99.79 kg General appearance: alert, in no apparent distress Head exam: Present: atraumatic, normocephalic, normal inspection Eye exam: Present: normal appearance, PERRL, EOMI. Absent: scleral icterus, conjunctival injection, periorbital swelling ENT exam: Present: normal exam, mucous membranes moist Neck exam: Present: normal inspection. Absent: tenderness, meningismus, lymphadenopathy Respiratory exam: Present: normal lung sounds bilaterally. Absent: respiratory distress, wheezes, rales, rhonchi, stridor Cardiovascular Exam: Present: regular rate, normal rhythm, normal heart sounds. Absent: systolic murmur, diastolic murmur, rubs, gallop, clicks GI/Abdominal exam: Present: soft, tenderness (Epigastric), normal bowel sounds. Absent: distended, guarding, rebound, rigid Extremities exam: Present: normal inspection, full ROM, normal capillary refill. Absent: tenderness, pedal edema, joint swelling, calf tenderness Neurological exam: Present: alert, oriented X3, CN II-XII intact Results CBC & Chem 7: 10/06/23 06:27 10/06/23 15:30 Labs: Abnormal Lab Results - Last 24 Hours (Table) 10/05/23 10/05/23 10/05/23 Range/Units 16:49 16:54 16:54 RBC (4.10-5.20) X 10*6/uL Hgb (12.0-15.0) g/dL Hct (37.2-46.3) % MCHC (32.0-37.0) g/dL RDW (11.5-14.5) % Eosinophils # (0.04-0.35) X 10*3/uL Chloride 108 H (98-107) mmol/L BUN 30 H (7-17) mg/dL Creatinine 1.23 H (0.52-1.04) mg/dL Glucose 187 H (74-99) mg/dL Plasma Lactic Acid [place] 2.2 H* (0.7-2.0) mmol/L Urine Appearance Cloudy H (Clear) Urine Protein Trace H (Negative) Urine Ketones 1+ H (Negative) Urine Blood Small H (Negative) Ur Leukocyte Esterase Moderate H (Negative) Urine WBC 9 H (0-5) /hpf Ur Squamous Epith Cells 15 H (0-4) /hpf Urine Bacteria Rare H (None) /hpf Hyaline Casts 21 H (0-2) /lpf Urine Mucus Occasional H (None) /hpf 10/06/23 Range/Units 06:27 RBC 3.66 L (4.10-5.20) X 10*6/uL Hgb 10.6 L (12.0-15.0) g/dL Hct 34.8 L (37.2-46.3) % MCHC 30.5 L (32.0-37.0) g/dL RDW 15.9 H (11.5-14.5) % Eosinophils # 0.03 L (0.04-0.35) X 10*3/uL Chloride (98-107) mmol/L BUN (7-17) mg/dL Creatinine (0.52-1.04) mg/dL Glucose (74-99) mg/dL Plasma Lactic Acid [place] (0.7-2.0) mmol/L Urine Appearance (Clear) Urine Protein (Negative) Urine Ketones (Negative) Urine Blood (Negative) Ur Leukocyte Esterase (Negative) Urine WBC (0-5) /hpf Ur Squamous Epith Cells (0-4) /hpf Urine Bacteria (None) /hpf Hyaline Casts (0-2) /lpf Urine Mucus (None) /hpf Assessment and Plan Assessment: 1. Intractable abdominal pain/vomiting; patient is status post Josephine fundoplication --Patient is admitted for further evaluation by surgery -- Currently remains n.p.o.; Protonix 40 mg p.o. twice daily -Percocet 5 mg every 6 hours as needed for pain control along with Dilaudid 1 mg IV every 3 hours as needed for breakthrough pain 2. Possible UTI; Rocephin 1 g IV daily; will monitor CBC and urine and blood cultures 3. Hyperglycemia/uncontrolled diabetes mellitus type 2; patient takes Actos 15 mg daily; we will hold off on oral hypoglycemic therapy and monitor Accu-Cheks before every meal and at bedtime with insulin sliding scale while patient is n.p.o. 4. Hypertension; Toprol-XL 25 mg daily, losartan 50 mg daily 5. Restless leg syndrome; Requip 0.25 mg p.o. nightly 6. Diabetic polyneuropathy; Neurontin 100 mg twice daily DVT prophylaxis; SCDs/subcu heparin CODE STATUS; full code
--- NOTE | 2023-10-06 17:53 | P.GSCN ---
History of Present Illness Consult date: 10/06/23 Reason for Consult: abdominal pain History of present illness: 68-year-old female with past medical history of hiatal hernia, diabetes, hyperli pidemia, coronary artery disease, who presents emergency department with epigastric pain. States that she does have a history of chronic abdominal pain however over the past 5 days the pain has been much worse. She went into urgent care today however she was sent to the hospital for further testing. She does have history of previous abdominal resection due to bowel obstruction. She has also had multiple hernia repairs. Her surgeon is Dr. Rangel however she requests a new surgeon as she no longer wants to follow with him. Patient admits to nausea with vomiting. She has had a poor appetite. is at bedside and helps supplement the history. Denies any fevers. No hematemesis. No dysuria, hematuria or difficulty voiding. No other alleviating, precipitating or modifying factors Blood work completed in ED reveals a WBC of 6.9, hemoglobin of 11.6 and platelet count of 361, sodium 139, potassium 4.4, BUNs/creatinine of 30/1.23 and blood glucose of 187, lactic acid of 2.2 UA is positive for leukocyte esterase, WBCs and few bacteria CT of the abdomen completed in ED and compared to 04/23/2023 revealed overall stable findings with no acute process identified Review of Systems REVIEW OF SYSTEMS: CONSTITUTIONAL: No fever, no malaise, no fatigue. HEENT: No recent visual problems or hearing problems. Denied any sore throat. CARDIOVASCULAR: No chest pain, orthopnea, PND, no palpitations, no syncope. PULMONARY: No shortness of breath, no cough, no hemoptysis. GASTROINTESTINAL: No diarrhea, no nausea, no vomiting, no abdominal pain. NEUROLOGICAL: No headaches, no weakness, no numbness. HEMATOLOGICAL: Denies any bleeding or petechiae. GENITOURINARY: Denies any burning micturition, frequency, or urgency. MUSCULOSKELETAL/RHEUMATOLOGICAL: Denies any joint pain, swelling, or any muscle pain. ENDOCRINE: Denies any polyuria or polydipsia. The rest of the 14-point review of systems is negative. 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 bowel resection for obstruction, amalia cataracts, Past Anesthesia/Blood Transfusion Reactions: No Reported Reaction Past Psychological History: No Psychological Hx Reported Smoking Status: Former smoker Past Alcohol Use History: None Reported Past Drug Use History: None Reported - Past Family History Mother Family Medical History: Cancer, CVA/TIA, Pulmonary Embolus Additional Family Medical History / Comment(s): breast cancer Father Family Medical History: CVA/TIA, Myocardial Infarction ([place]) Additional Family Medical History / Comment(s): . Brother(s) Family Medical History: Congestive Heart Failure (CHF) Additional Family Medical History / Comment(s): CABG Medications and Allergies Home Medications Medication Instructions Recorded Confirmed Type Gabapentin [Neurontin] 100 mg PO BID #6 cap 07/28/21 10/05/23 Rx Pantoprazole Sodium [Protonix] 40 mg PO AC-BID 11/12/21 10/05/23 History Metoprolol Succinate (ER) [Toprol 25 mg PO DAILY 04/24/23 10/05/23 History XL] Pioglitazone [Actos] 15 mg PO DAILY 04/24/23 10/05/23 History Triamcinolone 0.1% Cream [Kenalog 1 applic TOPICAL BID PRN 04/24/23 10/05/23 History 0.1% Cream] rOPINIRole HCL 0.25 mg PO HS 04/24/23 10/05/23 History Aspirin EC [Ecotrin Low Dose] 81 mg PO DAILY 10/05/23 10/05/23 History Aspirin/Acetaminophen/Caffeine 2 tab PO DAILY PRN 10/05/23 10/05/23 History [Excedrin Migraine Caplet] Clotrimazole Cream [Lotrimin Cream] 1 applic TOPICAL DAILY PRN 10/05/23 10/05/23 History Dicyclomine [Bentyl] 20 mg PO QID PRN 10/05/23 10/05/23 History Diphenoxylate HCl/Atropine 2 tab PO BID PRN 10/05/23 10/05/23 History [Lomotil 2.5-0.025 mg Tablet] Losartan [Cozaar] 50 mg PO DAILY 10/05/23 10/05/23 History Naproxen Sodium [Aleve] 220 mg PO DAILY PRN 10/05/23 10/05/23 History Nystatin 100,000Unit/gm Cream 1 applic TOPICAL BID PRN 10/05/23 10/05/23 History [Mycostatin Cream] Allergies Allergy/AdvReac Type Severity Reaction Status Date / Time morphine Allergy Rash/Hives Verified 10/05/23 20:37 sulfamethoxazole AdvReac Abdominal Verified 10/05/23 20:37 [From Bactrim] Pain trimethoprim [From Bactrim] AdvReac Abdominal Verified 10/05/23 20:37 Pain Surgical - Exam Osteopathic Statement: *. No significant issues noted on an osteopathic structural exam other than those noted in the History and Physical/Consult. Vital Signs Temp Pulse Resp BP Pulse Ox 98.3 F 74 24 129/68 99 10/05/23 14:59 10/05/23 14:59 10/05/23 14:59 10/05/23 14:59 10/05/23 14:59 Physical exam: HEENT: Normocephalic, sclerae nonicteric Chest: Clear to auscultation Heart: Regular rate and rhythm Abdomen: [Nontender, nondistended] Extremities: No edema Neuro: Alert and oriented Results - Labs 10/06/23 06:27 10/06/23 15:30 Abnormal Lab Results - Last 24 Hours (Table) 10/05/23 10/06/23 10/06/23 Range/Units 16:49 06: 15:30 RBC 3.66 L (4.10-5.20) X 10*6/uL Hgb 10.6 L (12.0-15.0) g/dL Hct 34.8 L (37.2-46.3) % MCHC 30.5 L (32.0-37.0) g/dL RDW 15.9 H (11.5-14.5) % Eosinophils # 0.03 L (0.04-0.35) X 10*3/uL Chloride 108 H 110 H (98-107) mmol/L Carbon Dioxide 17 L (22-30) mmol/L BUN 30 H 20 H (7-17) mg/dL Creatinine 1.23 H (0.52-1.04) mg/dL Glucose 187 H 119 H (74-99) mg/dL Diabetes panel 10/05/23 10/06/23 Range/Units 16:49 15:30 Sodium 139 137 (137-145) mmol/L Potassium 4.4 4.7 (3.5-5.1) mmol/L Chloride 108 H 110 H (98-107) mmol/L Carbon Dioxide 23 17 L (22-30) mmol/L BUN 30 H 20 H (7-17) mg/dL Creatinine 1.23 H 1.02 (0.52-1.04) mg/dL Glucose 187 H 119 H (74-99) mg/dL Calcium 9.7 8.5 (8.4-10.2) mg/dL AST 35 (14-36) U/L ALT 20 (4-34) U/L Alkaline Phosphatase 117 (38-126) U/L Total Protein 7.6 (6.3-8.2) g/dL Albumin 4.5 (3.5-5.0) g/dL Calcium panel 10/05/23 10/06/23 Range/Units 16:49 15:30 Calcium 9.7 8.5 (8.4-10.2) mg/dL Albumin 4.5 (3.5-5.0) g/dL Pituitary panel 10/05/23 10/06/23 Range/Units 16:49 15:30 Sodium 139 137 (137-145) mmol/L Potassium 4.4 4.7 (3.5-5.1) mmol/L Chloride 108 H 110 H (98-107) mmol/L Carbon Dioxide 23 17 L (22-30) mmol/L BUN 30 H 20 H (7-17) mg/dL Creatinine 1.23 H 1.02 (0.52-1.04) mg/dL Glucose 187 H 119 H (74-99) mg/dL Calcium 9.7 8.5 (8.4-10.2) mg/dL Adrenal panel 10/05/23 10/06/23 Range/Units 16:49 15:30 Sodium 139 137 (137-145) mmol/L Potassium 4.4 4.7 (3.5-5.1) mmol/L Chloride 108 H 110 H (98-107) mmol/L Carbon Dioxide 23 17 L (22-30) mmol/L BUN 30 H 20 H (7-17) mg/dL Creatinine 1.23 H 1.02 (0.52-1.04) mg/dL Glucose 187 H 119 H (74-99) mg/dL Calcium 9.7 8.5 (8.4-10.2) mg/dL Total Bilirubin 0.4 (0.2-1.3) mg/dL AST 35 (14-36) U/L ALT 20 (4-34) U/L Alkaline Phosphatase 117 (38-126) U/L Total Protein 7.6 (6.3-8.2) g/dL Albumin 4.5 (3.5-5.0) g/dL Assessment and Plan Assessment: 68 yo female w/ epigastric abdominal pain now has improved ctap demonstrates no acute process requiring surgery at this time -offered nasogastric tube if patient gets worse -keep npo -re-evaluate in am Time with Patient: Less than 30
[2023-10-06 20:35] LABS: Glucose,Whole Blood 146 mg/dL (70-110)
[2023-10-06] MEDS: INSULIN ASPART (NovoLOG) 100 UNIT/ML VIAL SQ SCH (20:36)
[2023-10-06] MEDS: HEPARIN SODIUM,PORCINE 5,000 UNIT/ML 1 ML VIAL SQ SCH (20:38)
[2023-10-07 06:19] LABS: Glucose,Whole Blood 84 mg/dL (70-110)
[2023-10-07 07:53] LABS: Basophils % (A) 1 %; Eosinophils # (A) 0.1 k/uL (0-0.7); Eosinophils % (A) 3 %; HCT 32.1 % (34.0-46.0); HGB 10.1 gm/dL (11.4-16.0); Hypochromasia Moderate; Lymphocytes # (A) 1.3 k/uL (1.0-4.8); Lymphocytes % (A) 37 %; MCH 29.9 pg (25.0-35.0); MCHC 31.4 g/dL (31.0-37.0); MCV 95.3 fL (80.0-100.0); Mean Platelet Volume 8.2; Monocytes # (A) 0.2 k/uL (0-1.0); Monocytes % (A) 6 %; Neutrophils # (A) 1.8 k/uL (1.3-7.7); Neutrophils % (A) 52 %; Platelet Count 245 k/uL (150-450); RBC 3.37 m/uL (3.80-5.40); RDW 15.3 % (11.5-15.5); WBC 3.5 k/uL (3.8-10.6)
[2023-10-07 07:55] LABS: African American GFR (CKD) 69 (>60 ml/min/1.73 sqM); Anion Gap 8 mmol/L; Blood Urea Nitrogen 14 mg/dL (7-17); Calcium 8.6 mg/dL (8.4-10.2); Carbon Dioxide 19 mmol/L (22-30); Chloride 115 mmol/L (98-107); Glucose 85 mg/dL (74-99); Non-African American GFR(CKD) 60 (>60 ml/min/1.73 sqM); Potassium 4.4 mmol/L (3.5-5.1); Sodium 142 mmol/L (137-145)
[2023-10-07 12:07] LABS: Glucose,Whole Blood 95 mg/dL (70-110)
--- NOTE | 2023-10-07 13:53 | P.PN ---
Subjective Progress Note Date: 10/07/23 She is passing flatus and having bowel movements after her CT scan. She reports epigastric pain. She reports symptoms for 5 days. She has prior bowel resection, cholecystectomy and reports chronic loss stools. She reports abdominal distention, "I feel like I have to pop something." PLAN: 1. May start low fiber diet 2. Simethicone scheduled 3. Repeat abdominal xray for resolution of abdominal distention. Objective - Vital Signs Vital signs: Vital Signs Temp 98.6 F 10/07/23 07:35 Pulse 66 10/07/23 07:35 Resp 17 10/07/23 07:35 BP 152/70 10/07/23 07:35 Pulse Ox 96 10/07/23 07:35 FiO2 Intake & Output 10/06/23 10/07/23 10/07/23 18:59 06:59 18:59 Other: # Voids 2 3 - Labs CBC & Chem 7: 10/07/23 06:56 10/07/23 06:56 Labs: Abnormal Lab Results - Last 24 Hours (Table) 10/06/23 10/06/23 10/07/23 Range/Units 15:30 20:35 06:56 WBC 3.5 L (3.8-10.6) k/uL RBC 3.37 L (3.80-5.40) m/uL Hgb 10.1 L (11.4-16.0) gm/dL Hct 32.1 L (34.0-46.0) % Chloride 110 H (98-107) mmol/L Carbon Dioxide 17 L (22-30) mmol/L BUN 20 H (7-17) mg/dL Glucose 119 H (74-99) mg/dL POC Glucose (mg/dL) 146 H (70-110) mg/dL 10/07/23 Range/Units 06:56 WBC (3.8-10.6) k/uL RBC (3.80-5.40) m/uL Hgb (11.4-16.0) gm/dL Hct (34.0-46.0) % Chloride 115 H (98-107) mmol/L Carbon Dioxide 19 L (22-30) mmol/L BUN (7-17) mg/dL Glucose (74-99) mg/dL POC Glucose (mg/dL) (70-110) mg/dL
--- NOTE | 2023-10-07 14:25 | XR ---
EXAMINATION TYPE: XR abdomen 2V DATE OF EXAM: 10/07/2023 2:12 PM CLINICAL INDICATION:Female, 68 years old with history of abdominal pain; [facility] COMPARISON: None. TECHNIQUE: Two views of the abdomen were obtained. FINDINGS: The bowel gas pattern is nonspecific without dilated loops of small or large bowel. There i s no evidence for organomegaly or pneumoperitoneum. The osseous structures are intact. Fecal materia l and gas are demonstrated throughout the colon and rectum. Surgical clips present in the right uppe r quadrant. IMPRESSION: Nonspecific bowel gas pattern without radiographic evidence for acute process.
--- NOTE | 2023-10-07 16:46 | P.PN ---
Subjective Progress Note Date: 10/08/23 68-year-old female with past medical history of hiatal hernia, diabetes, hyperlipidemia, coronary artery disease, who presents emergency department with epigastric pain. States that she does have a history of chronic abdominal pain however over the past 5 days the pain has been much worse. She went into urgent care today however she was sent to the hospital for further testing. She does have history of previous abdominal resection due to bowel obstruction. She has also had multiple hernia repairs. Her surgeon is Dr. Rangel however she requests a new surgeon as she no longer wants to follow with him. Patient admits to nausea with vomiting. She has had a poor appetite. is at bedside and helps supplement the history. Denies any fevers. No hematemesis. No dysuria, hematuria or difficulty voiding. No other alleviating, precipitating or modifying factors Blood work completed in ED reveals a WBC of 6.9, hemoglobin of 11.6 and platelet count of 361, sodium 139, potassium 4.4, BUNs/creatinine of 30/1.23 and blood glucose of 187, lactic acid of 2.2 UA is positive for leukocyte esterase, WBCs and few bacteria CT of the abdomen completed in ED and compared to 04/23/2023 revealed overall stable findings with no acute process identified Patient has been evaluated by general surgery and is recommended to be initiated on low fiber diet; bowel regimen with simethicone schedule -- Repeat abdominal x-ray to ensure resolution of abdominal distention Objective - Vital Signs Vital signs: Vital Signs Temp 98.6 F 10/07/23 07:35 Pulse 66 10/07/23 07:35 Resp 17 10/07/23 07:35 BP 152/70 10/07/23 07:35 Pulse Ox 96 10/07/23 07:35 FiO2 Intake & Output 10/06/23 10/07/23 10/07/23 18:59 06:59 18:59 Other: # Voids 2 3 - Exam General appearance: alert, in no apparent distress Head exam: Present: atraumatic, normocephalic, normal inspection Eye exam: Present: normal appearance, PERRL, EOMI. Absent: scleral icterus, conjunctival injection, periorbital swelling ENT exam: Present: normal exam, mucous membranes moist Neck exam: Present: normal inspection. Absent: tenderness, meningismus, lymphadenopathy Respiratory exam: Present: normal lung sounds bilaterally. Absent: respiratory distress, wheezes, rales, rhonchi, stridor Cardiovascular Exam: Present: regular rate, normal rhythm, normal heart sounds. Absent: systolic murmur, diastolic murmur, rubs, gallop, clicks GI/Abdominal exam: Present: soft, tenderness (Epigastric), normal bowel sounds. Absent: distended, guarding, rebound, rigid Extremities exam: Present: normal inspection, full ROM, normal capillary refill. Absent: tenderness, pedal edema, joint swelling, calf tenderness Neurological exam: Present: alert, oriented X3, CN II-XII intact - Labs CBC & Chem 7: 10/07/23 06:56 10/07/23 06:56 Labs: Abnormal Lab Results - Last 24 Hours (Table) 10/06/23 10/06/23 10/06/23 Range/Units 06:27 15:30 20:35 WBC (3.8-10.6) k/uL RBC 3.66 L (4.10-5.20) X 10*6/uL Hgb 10.6 L (12.0-15.0) g/dL Hct 34.8 L (37.2-46.3) % MCHC 30.5 L (32.0-37.0) g/dL RDW 15.9 H (11.5-14.5) % Eosinophils # 0.03 L (0.04-0.35) X 10*3/uL Chloride 110 H (98-107) mmol/L Carbon Dioxide 17 L (22-30) mmol/L BUN 20 H (7-17) mg/dL Glucose 119 H (74-99) mg/dL POC Glucose (mg/dL) 146 H (70-110) mg/dL 10/07/23 10/07/23 Range/Units 06:56 06:56 WBC 3.5 L (3.8-10.6) k/uL RBC 3.37 L (4.10-5.20) X 10*6/uL Hgb 10.1 L (12.0-15.0) g/dL Hct 32.1 L (37.2-46.3) % MCHC (32.0-37.0) g/dL RDW (11.5-14.5) % Eosinophils # (0.04-0.35) X 10*3/uL Chloride 115 H (98-107) mmol/L Carbon Dioxide 19 L (22-30) mmol/L BUN (7-17) mg/dL Glucose (74-99) mg/dL POC Glucose (mg/dL) (70-110) mg/dL Assessment and Plan Assessment: 1. Intractable abdominal pain/vomiting; patient is status post Josephine fundoplication --Patient is admitted for further evaluation by surgery -- Currently remains n.p.o.; Protonix 40 mg p.o. twice daily -Percocet 5 mg every 6 hours as needed for pain control along with Dilaudid 1 mg IV every 3 hours as needed for breakthrough pain 2. Possible UTI; Rocephin 1 g IV daily; will monitor CBC and urine and blood c ultures 3. Hyperglycemia/uncontrolled diabetes mellitus type 2; patient takes Actos 15 mg daily; we will hold off on oral hypoglycemic therapy and monitor Accu-Cheks before every meal and at bedtime with insulin sliding scale while patient is n.p.o. 4. Hypertension; Toprol-XL 25 mg daily, losartan 50 mg daily 5. Restless leg syndrome; Requip 0.25 mg p.o. nightly 6. Diabetic polyneuropathy; Neurontin 100 mg twice daily DVT prophylaxis; SCDs/subcu heparin CODE STATUS; full code
[2023-10-07] MEDS: SIMETHICONE 80 MG CHEWABLE PO SCH (17:04)
[2023-10-07 17:11] LABS: Glucose,Whole Blood 68 mg/dL (70-110)
[2023-10-07 17:29] LABS: Glucose,Whole Blood 106 mg/dL (70-110)
[2023-10-07 19:57] LABS: Glucose,Whole Blood 165 mg/dL (70-110)
[2023-10-08 05:40] LABS: Glucose,Whole Blood 102 mg/dL (70-110)
[2023-10-08] MEDS: LACTULOSE 20 GM/30 ML CUP PO SCH (10:23)
[2023-10-08 12:16] LABS: Glucose,Whole Blood 159 mg/dL (70-110)
--- NOTE | 2023-10-08 13:03 | P.PN ---
Subjective Progress Note Date: 10/08/23 CHIEF COMPLAINT: Epigastric abdominal pain HISTORY OF PRESENT ILLNESS: Patient reports that she continues to feel gassy with epigastric pain. Abdominal x-ray had reported nonspecific bowel gas pattern. Fecal material and gas are demonstrated throughout colon and rectum. Denies any nausea or vomiting. PHYSICAL EXAM: VITAL SIGNS: Reviewed GENERAL: Well-developed in no acute distress. HEENT: No sclera icterus. Extraocular movements grossly intact. Moist buccal mucosa. Head is atraumatic, normocephalic. Hears conversational speech. No nasal drainage. NECK: Supple without lymphadenopathy. CHEST: Non-labored respirations and equal bilateral excursions. CARDIOVASCULAR: Palpable 2+ radial pulses. ABDOMEN: Soft. epigastric tenderness MUSCULOSKELETAL: No clubbing or cyanosis. NEUROLOGIC: No focal or lateralizing signs. Cranial nerves II through XII grossly intact. PSYCH: Appropriate affect. Alert and oriented to person, place and time. SKIN: Well perfused. Good skin turgor. ASSESSMENT: 1. Epigastric abdominal pain 2. Constipation 3. Prior history of bowel resection, cholecystectomy and hernia repair 4. History of chronic abdominal pain PLAN: -Milk of mag and lactulose ordered for constipation -Continue Mylicon gas drops -Encourage patient to increase activity level -Continue to monitor -Continue low fiber diet Physician Bone Puller note has been reviewed by physician. Signing provider agrees with the documented findings, assessment, and plan of care. Objective - Vital Signs Vital signs: Vital Signs Temp 98.1 F 10/08/23 08:00 Pulse 62 10/08/23 08:00 Resp 16 10/08/23 08:00 BP 139/72 10/08/23 08:00 Pulse Ox 94 L 10/08/23 08:00 FiO2 Intake & Output 10/07/23 10/08/23 10/08/23 18:59 06:59 18:59 Intake Total 900 Balance 900 Intake: Intake, IV Titration 900 Amount Sodium Chloride 0.9% 1, 900 000 ml @ 75 mls/hr IV . [id number] [facility] Rx#:[id number] Other: # Voids 3 2 - Labs CBC & Chem 7: 10/07/23 06:56 10/07/23 06:56 Labs: Abnormal Lab Results - Last 24 Hours (Table) 10/07/23 10/07/23 10/08/23 Range/Units 17:09 19:55 12:14 POC Glucose (mg/dL) 68 L 165 H 159 H (70-110) mg/dL
[2023-10-08] MEDS: MAGNESIUM HYDROXIDE 2,400 MG/30 ML CUP PO SCH (13:37)
[2023-10-08 16:54] LABS: Glucose,Whole Blood 189 mg/dL (70-110)
--- NOTE | 2023-10-08 17:20 | P.PN ---
Subjective Progress Note Date: 10/08/23 Principal diagnosis: Abdominal pressure This is a 68-year-old female with past medical history significant for chronic abdominal pain with chronic nausea, CAD, diabetes mellitus type 2, hypertension, chronic kidney disease stage III, peripheral vascular disease, prior nicotine de pendence and multiple other medical issues presented to the ER with complaints of abdominal pressure. Consumed Kazakh toast and hartley this morning. Reports significant abdominal pressure this morning, nausea has subsided. Chronic fluctuating constipation with chronic diarrhea. Reports last bowel movement yesterday loose. Abdominal x-ray completed yesterday reported nonspecific bowel gas pattern without evidence for acute process. Milk of mag and lactulose ordered as per general surgery. Objective - Vital Signs Vital signs: Vital Signs Temp 97.9 F 10/08/23 14:00 Pulse 65 10/08/23 14:00 Resp 18 10/08/23 14:00 BP 138/81 10/08/23 14:00 Pulse Ox 97 10/08/23 14:00 FiO2 Intake & Output 10/07/23 10/08/23 10/08/23 18:59 06:59 18:59 Intake Total 900 Balance 900 Intake: Intake, IV Titration 900 Amount Sodium Chloride 0.9% 1, 900 000 ml @ 75 mls/hr IV . [id number] [facility] Rx#:[id number] Other: # Voids 3 2 - Exam VITAL SIGNS: [As above] GENERAL: Alert and oriented 3, Sitting up in bed, no acute distress Eyes: PERRL, EOMI, conjunctiva normal, MMM. HENT: normocephalic, MMM. Neck: supple, no JVD Lungs: Unlabored, equal air entry ,normal respiratory effort, bilateral bases diminished. CV: Regular rate and rhythm, no murmur. Peripheral pulses 2+ Abdomen: soft, nondistended,diffuse mid epigastric/transitional point abdominal tenderness,no organomegaly, no guarding, no rigidity .positive bowel sounds. Skin: warm and dry. Neuro: Cranial nerves 2 through 12 grossly intact, no focal deficits - Labs CBC & Chem 7: 10/07/23 06:56 10/07/23 06:56 Labs: Abnormal Lab Results - Last 24 Hours (Table) 10/07/23 10/07/23 10/08/23 Range/Units 17:09 19:55 12:14 POC Glucose (mg/dL) 68 L 165 H 159 H (70-110) mg/dL 10/08/23 Range/Units 16:52 POC Glucose (mg/dL) 189 H (70-110) mg/dL Assessment and Plan Assessment: Chronic epigastric abdominal pain, chronic constipation alternating with chronic diarrhea History of multiple abdominal surgeries chronic Renal Failure, stage III Chronic anemia, macrocytic secondary to the above Gastroesophageal reflux disease history of migraines CAD PVD Hypertension Diabetes Melllitus II History of Covid infection Memory impairment, history of Obesity, BMI 43 Plan continue on current medication regimen ,monitoring and symptomatic treatment. IV fluid hydration, low fiber diet. Patient had just completed breakfast and consumed Kazakh toast and hartley-discussed following low fiber/bland diet. increase activity as tolerated. MOM and lactulose as per general surgery. Discharge planning in progress for tomorrow pending general surgery's final DC recommendations and clearance. The impression and plan of care has been dictated as directed. : I performed a history and examination of this patient, discussed the same with the dictator. I agree with the dictator's note ,documented as a scribe. Any additional findings or plans will be noted.
[2023-10-08 20:40] LABS: Glucose,Whole Blood 190 mg/dL (70-110)
[2023-10-09 06:01] LABS: Glucose,Whole Blood 102 mg/dL (70-110)
[2023-10-09 07:59] VITALS: BP 136/74; PULSE 65; RESP 17; TEMP 98.1
--- NOTE | 2023-10-09 10:56 | P.PN ---
Subjective Progress Note Date: 10/09/23 CHIEF COMPLAINT: Epigastric abdominal pain HISTORY OF PRESENT ILLNESS: Patient reports her epigastric pain is better than on admission. She did have a bowel movement yesterday. She was able to tolerate low fiber diet. Afebrile. PHYSICAL EXAM: VITAL SIGNS: Reviewed GENERAL: Well-developed in no acute distress. HEENT: No sclera icterus. Extraocular movements grossly intact. Moist buccal mucosa. Head is atraumatic, normocephalic. Hears conversational speech. No nasal drainage. NECK: Supple without lymphadenopathy. CHEST: Non-labored respirations and equal bilateral excursions. CARDIOVASCULAR: Palpable 2+ radial pulses. ABDOMEN: Soft. Nondistended MUSCULOSKELETAL: No clubbing or cyanosis. NEUROLOGIC: No focal or lateralizing signs. Cranial nerves II through XII grossly intact. PSYCH: Appropriate affect. Alert and oriented to person, place and time. SKIN: Well perfused. Good skin turgor. ASSESSMENT: 1. Epigastric abdominal pain 2. Constipation improved 3. Prior history of bowel resection, cholecystectomy and hernia repair 4. History of chronic abdominal pain PLAN: -Patient can be discharged from surgical standpoint -Recommend to continue the Mylicon gas drops at home -Continue low fiber diet Physician City Editor note has been reviewed by physician. Signing provider agrees with the documented findings, assessment, and plan of care. Objective - Vital Signs Vital signs: Vital Signs Temp 98.1 F 10/09/23 07:00 Pulse 65 10/09/23 07:00 Resp 17 10/09/23 07:00 BP 136/74 10/09/23 07:00 Pulse Ox 94 L 10/09/23 07:00 FiO2 Intake & Output 10/08/23 10/09/23 10/09/23 18:59 06:59 18:59 Other: # Voids 3 1 # Bowel Movements 2 - Labs CBC & Chem 7: 10/07/23 06:56 10/07/23 06:56 Labs: Abnormal Lab Results - Last 24 Hours (Table) 10/08/23 10/08/23 10/08/23 Range/Units 12:14 16:52 20:37 POC Glucose (mg/dL) 159 H 189 H 190 H (70-110) mg/dL
[2023-10-09 11:30] LABS: Glucose,Whole Blood 111 mg/dL (70-110)
--- NOTE | 2023-10-09 11:35 | P.DS ---
Providers Date of admission: 10/05/23 20:36 Expected date of discharge: 10/09/23 Attending physician: Dmitry Lewis MD Consults: 10/05/23 20:35 Consult Physician Urgent Consulting Provider: Xiomara Garber Consult Reason/Comments: intractable abd pain Do you want consulting provider notified?: Yes Primary care physician: Dmitry Lewis MD Hospital Course: Final Diagnoses: Chronic epigastric abdominal pain, chronic constipation alternating with chronic diarrhea History of multiple abdominal surgeries chronic Renal Failure, stage III Chronic anemia, macrocytic secondary to the above Gastroesophageal reflux disease history of migraines CAD PVD Hypertension Diabetes Melllitus II History of Covid infection Memory impairment, history of Obesity, BMI 43 Hospital course: This is a 68-year-old female with past medical history significant for chronic abdominal pain with chronic nausea, CAD, diabetes mellitus type 2, hypertension, chronic kidney disease stage III, peripheral vascular disease, prior nicotine dependence and multiple other medical issues presented to the ER with complaints of abdominal pressure. Consumed Kos[place] toast and hartley this morning. Reports significant abdominal pressure this morning, nausea has subsided. Chronic fluctuating constipation with chronic diarrhea. Reports last bowel movement yesterday loose. Abdominal x-ray completed yesterday reported nonspecific bowel gas pattern without evidence for acute process. Milk of mag and lactulose ordered as per general surgery. Maintained on IV fluid hydration, low fiber diet,MOM and lactulose. Advised to increase activity as tolerated. Significant clinical improvement. Tolerating low fiber diet. Improved epigastric pain, currently mild tenderness left upper quadrant. Positive bowel movement yesterday. Denies nausea, vomiting. Patient will be discharged home today pending final DC recommendations and clearance per general surgery. The impression and plan of care has been dictated as directed. : I performed a history and examination of this patient, discussed the same with the dictator. I agree with the dictator's note ,documented as a scribe. Any additional findings or plans will be noted. Patient Condition at Discharge: Stable Plan - Discharge Summary New Discharge Prescriptions: New Simethicone 40 mg/0.6 ml Drops [Mylicon Drops] 40 mg PO PCHS PRN #30 ml PRN Reason: gas No Action Gabapentin [Neurontin] 100 mg PO BID #6 cap Pantoprazole Sodium [Protonix] 40 mg PO AC-BID Triamcinolone 0.1% Cream [Kenalog 0.1% Cream] 1 applic TOPICAL BID PRN PRN Reason: irritation Pioglitazone [Actos] 15 mg PO DAILY rOPINIRole HCL 0.25 mg PO HS Clotrimazole Cream [Lotrimin Cream] 1 applic TOPICAL DAILY PRN PRN Reason: Rash Naproxen Sodium [Aleve] 220 mg PO DAILY PRN PRN Reason: Pain Losartan [Cozaar] 50 mg PO DAILY Metoprolol Succinate (ER) [Toprol XL] 25 mg PO DAILY Nystatin 100,000Unit/gm Cream [Mycostatin Cream] 1 applic TOPICAL BID PRN PRN Reason: Rash Diphenoxylate HCl/Atropine [Lomotil 2.5-0.025 mg Tablet] 2 tab PO BID PRN PRN Reason: Diarrhea Dicyclomine [Bentyl] 20 mg PO QID PRN PRN Reason: IBS Aspirin/Acetaminophen/Caffeine [Excedrin Migraine Caplet] 2 tab PO DAILY PRN PRN Reason: Migraine Headache Aspirin EC [Ecotrin Low Dose] 81 mg PO DAILY Discharge Medication List Gabapentin [Neurontin] 100 mg PO BID #6 cap 07/28/21 [Rx] Pantoprazole Sodium [Protonix] 40 mg PO AC-BID 11/12/21 [History] Metoprolol Succinate (ER) [Toprol XL] 25 mg PO DAILY 04/24/23 [History] Pioglitazone [Actos] 15 mg PO DAILY 04/24/23 [History] Triamcinolone 0.1% Cream [Kenalog 0.1% Cream] 1 applic TOPICAL BID PRN 04/24/23 [History] rOPINIRole HCL 0.25 mg PO HS 04/24/23 [History] Aspirin EC [Ecotrin Low Dose] 81 mg PO DAILY 10/05/23 [History] Aspirin/Acetaminophen/Caffeine [Excedrin Migraine Caplet] 2 tab PO DAILY PRN 10/05/23 [History] Clotrimazole Cream [Lotrimin Cream] 1 applic TOPICAL DAILY PRN 10/05/23 [History] Dicyclomine [Bentyl] 20 mg PO QID PRN 10/05/23 [History] Diphenoxylate HCl/Atropine [Lomotil 2.5-0.025 mg Tablet] 2 tab PO BID PRN 10/05/23 [History] Losartan [Cozaar] 50 mg PO DAILY 10/05/23 [History] Naproxen Sodium [Aleve] 220 mg PO DAILY PRN 10/05/23 [History] Nystatin 100,000Unit/gm Cream [Mycostatin Cream] 1 applic TOPICAL BID PRN 10/05/23 [History] Simethicone 40 mg/0.6 ml Drops [Mylicon Drops] 40 mg PO PCHS PRN #30 ml 10/09/23 [Rx] Follow up Appointment(s)/Referral(s): Dmitry Lewis MD [Primary Care Provider] - 3 Days Activity/Diet/Wound Care/Special Instructions: Low fiber diet
== END 2023-10-09 13:09 ==
LOC: EC 14:44 → 4SSUR 20:36
PROVIDERS: ADMIT Family Medicine; ATTEND Family Medicine
DX: R10.13 Epigastric pain (principal); G89.29 Other chronic pain; R19.7 Diarrhea, unspecified; K59.09 Other constipation; I12.9 Hypertensive chronic kidney disease with stage 1 through stage 4 chronic kidney disease, or unspecified chronic kidney disease; E11.22 Type 2 diabetes mellitus with diabetic chronic kidney disease; N18.30 Chronic kidney disease, stage 3 unspecified; D53.9 Nutritional anemia, unspecified; K21.9 Gastro-esophageal reflux disease without esophagitis; G43.909 Migraine, unspecified, not intractable, without status migrainosus; I25.10 Atherosclerotic heart disease of native coronary artery without angina pectoris; E11.51 Type 2 diabetes mellitus with diabetic peripheral angiopathy without gangrene; R41.3 Other amnesia; E66.9 Obesity, unspecified; E78.5 Hyperlipidemia, unspecified; E11.65 Type 2 diabetes mellitus with hyperglycemia; G25.81 Restless legs syndrome; E11.42 Type 2 diabetes mellitus with diabetic polyneuropathy; Z79.82 Long term (current) use of aspirin; Z88.5 Allergy status to narcotic agent; Z88.2 Allergy status to sulfonamides; Z86.16 Personal history of COVID-19; Z79.899 Other long term (current) drug therapy; Z68.41 Body mass index [BMI] 40.0-44.9, adult; Z79.84 Long term (current) use of oral hypoglycemic drugs; Z90.49 Acquired absence of other specified parts of digestive tract
CPT/HCPCS: 96376 ×3; 96361 ×2; 96365; 96366 ×2; 96372 ×4; 96375; 99285; 36415; 93005; 80053; 80048 ×2; 83605; 83690; 85025 ×3; 81001; 74019; 74177; G0378 ×5; J1644 ×4; J2405 ×4; J0696; J1170 ×3; Q9967

== ENCOUNTER 2023-10-12 09:55 | Emergency (ER) | payer MEDICARE ==
[2023-10-12 10:43] VITALS: TEMP 98.1
[2023-10-12] MEDS: PANTOPRAZOLE 40 MG/10 ML VIAL IVP STA (11:15)
--- NOTE | 2023-10-12 11:18 | ED ---
General Adult HPI - General Chief complaint: Abdominal Pain Stated complaint: Abd pain Time Seen by Provider: 10/12/23 10:48 Source: patient, RN notes reviewed, old records reviewed Mode of arrival: ambulatory Limitations: no limitations - History of Present Illness Initial comments: 68-year-old female presenting with chronic abdominal pain nausea. Patient was discharged from the hospital 2 days prior with similar symptoms. She states that she was told she had constipation, diarrhea and gas. She has been on a low fiber diet. No fever. Pain is typical of her chronic pain. - Related Data Home Medications Medication Instructions Recorded Confirmed Pantoprazole Sodium [Protonix] 40 mg PO AC-BID 11/12/21 10/05/23 Metoprolol Succinate (ER) [Toprol 25 mg PO DAILY 04/24/23 10/05/23 XL] Pioglitazone [Actos] 15 mg PO DAILY 04/24/23 10/05/23 Triamcinolone 0.1% Cream [Kenalog 1 applic TOPICAL BID PRN 04/24/23 10/05/23 0.1% Cream] rOPINIRole HCL 0.25 mg PO HS 04/24/23 10/05/23 Aspirin EC [Ecotrin Low Dose] 81 mg PO DAILY 10/05/23 10/05/23 Aspirin/Acetaminophen/Caffeine 2 tab PO DAILY PRN 10/05/23 10/05/23 [Excedrin Migraine Caplet] Clotrimazole Cream [Lotrimin Cream] 1 applic TOPICAL DAILY PRN 10/05/23 10/05/23 Dicyclomine [Bentyl] 20 mg PO QID PRN 10/05/23 10/05/23 Diphenoxylate HCl/Atropine 2 tab PO BID PRN 10/05/23 10/05/23 [Lomotil 2.5-0.025 mg Tablet] Losartan [Cozaar] 50 mg PO DAILY 10/05/23 10/05/23 Naproxen Sodium [Aleve] 220 mg PO DAILY PRN 10/05/23 10/05/23 Nystatin 100,000Unit/gm Cream 1 applic TOPICAL BID PRN 10/05/23 10/05/23 [Mycostatin Cream] Previous Rx's Medication Instructions Recorded Gabapentin [Neurontin] 100 mg PO BID #6 cap 07/28/21 Simethicone 40 mg/0.6 ml Drops 40 mg PO PCHS PRN #30 ml 10/09/23 [Mylicon Drops] Allergies Allergy/AdvReac Type Severity Reaction Status Date / Time morphine Allergy Rash/Hives Verified 10/12/23 10:24 sulfamethoxazole AdvReac Abdominal Verified 10/12/23 10:24 [From Bactrim] Pain trimethoprim [From Bactrim] AdvReac Abdominal Verified 10/12/23 10:24 Pain Review of Systems ROS Statement: Those systems with pertinent positive or pertinent negative responses have been documented in the HPI. ROS Other: All systems not noted in ROS Statement are negative. 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 bowel resection for obstruction, amalia cataracts, Past Anesthesia/Blood Transfusion Reactions: No Reported Reaction Past Psychological History: No Psychological Hx Reported Smoking Status: Former smoker Past Alcohol Use History: None Reported Past Drug Use History: None Reported - Past Family History Mother Family Medical History: Cancer, CVA/TIA, Pulmonary Embolus Additional Family Medical History / Comment(s): breast cancer Father Family Medical History: CVA/TIA, Myocardial Infarction ([place]) Additional Family Medical History / Comment(s): . Brother(s) Family Medical History: Congestive Heart Failure (CHF) Additional Family Medical History / Comment(s): CABG General Exam Limitations: no limitations General appearance: alert, in no apparent distress Head exam: Present: atraumatic, normocephalic Eye exam: Present: normal appearance, PERRL ENT exam: Present: normal exam Neck exam: Present: normal inspection. Absent: tenderness, meningismus Respiratory exam: Present: normal lung sounds bilaterally. Absent: respiratory distress, wheezes Cardiovascular Exam: Present: regular rate, normal rhythm GI/Abdominal exam: Present: tenderness. Absent: distended, rebound, rigid Extremities exam: Present: normal inspection, normal capillary refill Neurological exam: Present: alert, oriented X3, CN II-XII intact. Absent: motor sensory deficit Psychiatric exam: Present: normal affect, normal mood Skin exam: Present: warm, dry, intact. Absent: cyanosis, diaphoretic Course Vital Signs 10/12/23 10:20 Temperature 98.1 F Pulse Rate 77 Respiratory 16 Rate Blood Pressure 180/98 O2 Sat by Pulse 96 Oximetry Medical Decision Making - Medical Decision Making Was pt. sent in by a medical professional or institution (, JOSE, COMPOSER TEACHING ARTIST, urgent care, hospital, or [place] [facility] [place]...) When possible be specific @ -No Did you speak to anyone other than the patient for history (EMS, parent, family, police, friend...)? What history was obtained from this source @ -No Did you review nursing and triage notes (agree or disagree)? Why? @ -I reviewed and agree with nursing and triage notes Were old charts reviewed (outside hosp., previous admission, EMS record, old EKG, old radiological studies, urgent care reports/EKG's, [place] [facility] [place] records)? Report findings @ -No old charts were reviewed Differential Abdominal Pain Women: Appendicitis, Cholecystitis, diverticulosis, ischemic bowel, pancreatitis, hepatitis, UTI, gastroenteritis, AAA, incarcerated hernia, bowel obstruction, constipation, inflammatory bowel, hepatitis, peptic ulcer disease, splenic infarction, perforated viscus, vulvitis, ovarian torsion, PID, kidney stone, placenta abruption, this is not meant to be an all-inclusive list EKG interpreted by me (3pts min.). @ -As above X-rays interpreted by me (1pt min.). @KUB negative for obstruction or intraperitoneal free air. CT interpreted by me (1pt min.). @ -None done U/S interpreted by me (1pt. min.). @ -None done What testing was considered but not performed or refused? (CT, X-rays, U/S, labs)? Why? @ -None What meds were considered but not given or refused? Why? @ -None Did you discuss the management of the patient with other professionals (professionals i.e. Dr., PA, COMPOSER TEACHING ARTIST, lab, RT, psych nurse, adoption social worker, bottom loader, teacher, community chest officer, returned case inspector)? Give summary @ -No Was smoking cessation discussed for >3mins.? @ -No Was critical care preformed (if so, how long)? @ -No Were there social determinants of health that impacted care today? How? (Homelessness, low income, unemployed, alcoholism, drug addiction, transportation, low edu. Level, literacy, decrease access to med. care, [place] [facility], rehab)? @ -No Was there de-escalation of care discussed even if they declined (Discuss DNR or withdrawal of care, Hospice)? DNR status @ -No What co-morbidities impacted this encounter? (DM, HTN, Smoking, COPD, CAD, Cancer, CVA, ARF, Chemo, Hep., AIDS, mental health diagnosis, sleep apnea, morbid obesity)? @ -Chronic abdominal pain Was patient admitted / discharged? Hospital course, mention meds given and route, prescriptions, significant lab abnormalities, going to OR and other per tinent info. @ -68-year-old female with chronic abdominal pain. Presents with epigastric pain and nausea vomiting. Patient well-appearing with stable vitals. Pain is consistent with chronic chronic pain. Laboratory testing unremarkable. X-ray negative for obstruction. Patient feels better after GI cocktail and Protonix. Undiagnosed new problem with uncertain prognosis? @ -No Drug Therapy requiring intensive monitoring for toxicity (Heparin, Nitro, Insulin, Cardizem)? @ -No Were any procedures done? @ -No Diagnosis/symptom? Abdominal pain Acute, or Chronic, or Acute on Chronic? @ -Acute on chronic Uncomplicated (without systemic symptoms) or Complicated (systemic symptoms)? @ -Default Side effects of treatment? @ -No Exacerbation, Progression, or Severe Exacerbation? @ -No Poses a threat to life or bodily function? How? (Chest pain, [place], [place], pneumonia, PE, COPD, DKA, ARF, appy, cholecystitis, CVA, Diverticulitis, Homicidal, Suicidal, threat to staff... and all critical care pts) @ -Low risk at this time - Lab Data Result diagrams: 10/12/23 11:11 10/12/23 11:11 Lab Results 10/12/23 10/12/23 Range/Units 11:11 11:11 WBC 5.4 (3.8-10.6) k/uL RBC 3.75 L (3.80-5.40) m/uL Hgb 11.1 L (11.4-16.0) gm/dL Hct 35.1 (34.0-46.0) % MCV 93.7 (80.0-100.0) fL MCH 29.5 (25.0-35.0) pg MCHC 31.5 (31.0-37.0) g/dL RDW 15.8 H (11.5-15.5) % Plt Count 293 (150-450) k/uL MPV 8.2 Neutrophils % 71 % Lymphocytes % 20 % Monocytes % 6 % Eosinophils % 1 % Basophils % 1 % Neutrophils # 3.8 (1.3-7.7) k/uL Lymphocytes # 1.1 (1.0-4.8) k/uL Monocytes # 0.3 (0-1.0) k/uL Eosinophils # 0.1 (0-0.7) k/uL Basophils # 0.1 (0-0.2) k/uL Sodium 144 (137-145) mmol/L Potassium 4.4 (3.5-5.1) mmol/L Chloride 110 H (98-107) mmol/L Carbon Dioxide 24 (22-30) mmol/L Anion Gap 10 mmol/L BUN 17 (7-17) mg/dL Creatinine 1.10 H (0.52-1.04) mg/dL Est GFR (CKD-EPI)AfAm 60 (>60 ml/min/1.73 sqM) Est GFR (CKD-EPI)NonAf 52 (>60 ml/min/1.73 sqM) Glucose 169 H (74-99) mg/dL Calcium 9.4 (8.4-10.2) mg/dL Total Bilirubin 0.5 (0.2-1.3) mg/dL AST 29 (14-36) U/L ALT 22 (4-34) U/L Alkaline Phosphatase 104 (38-126) U/L Total Protein 7.1 (6.3-8.2) g/dL Albumin 4.4 (3.5-5.0) g/dL Amylase 48 (30-110) U/L Lipase 87 (23-300) U/L Disposition Clinical Impression: Abdominal pain Disposition: HOME SELF-CARE Condition: Fair Instructions (If sedation given, give patient instructions): Abdominal Pain (E D) Is patient prescribed a controlled substance at d/c from ED?: No Referrals: Dmitry Lewis MD [Primary Care Provider] - 1-2 days Time of Disposition: 12:14
[2023-10-12 11:19] LABS: Basophils # (A) 0.1 k/uL (0-0.2); Basophils % (A) 1 %; Eosinophils # (A) 0.1 k/uL (0-0.7); Eosinophils % (A) 1 %; HCT 35.1 % (34.0-46.0); HGB 11.1 gm/dL (11.4-16.0); Lymphocytes # (A) 1.1 k/uL (1.0-4.8); Lymphocytes % (A) 20 %; MCH 29.5 pg (25.0-35.0); MCHC 31.5 g/dL (31.0-37.0); MCV 93.7 fL (80.0-100.0); Mean Platelet Volume 8.2; Monocytes # (A) 0.3 k/uL (0-1.0); Monocytes % (A) 6 %; Neutrophils # (A) 3.8 k/uL (1.3-7.7); Neutrophils % (A) 71 %; Platelet Count 293 k/uL (150-450); RBC 3.75 m/uL (3.80-5.40); RDW 15.8 % (11.5-15.5); WBC 5.4 k/uL (3.8-10.6)
[2023-10-12] MEDS: ONDANSETRON 4 MG/2 ML VIAL IVP STA (11:22)
[2023-10-12] MEDS: MAG HYDROX/AL HYDROX/SIMETH 30 ML, HYOSCYAMINE ELIXIR 10 ML, LIDOCAINE VISCOUS 2% 10 ML PO STA (11:24)
[2023-10-12 11:29] LABS: ALT 22 U/L (4-34); AST 29 U/L (14-36); African American GFR (CKD) 60 (>60 ml/min/1.73 sqM); Albumin 4.4 g/dL (3.5-5.0); Alkaline Phosphatase 104 U/L (38-126); Amylase 48 U/L (30-110); Anion Gap 10 mmol/L; Blood Urea Nitrogen 17 mg/dL (7-17); Calcium 9.4 mg/dL (8.4-10.2); Carbon Dioxide 24 mmol/L (22-30); Chloride 110 mmol/L (98-107); Glucose 169 mg/dL (74-99); Lipase 87 U/L (23-300); Non-African American GFR(CKD) 52 (>60 ml/min/1.73 sqM); Potassium 4.4 mmol/L (3.5-5.1); Sodium 144 mmol/L (137-145); Total Bilirubin 0.5 mg/dL (0.2-1.3); Total Protein 7.1 g/dL (6.3-8.2)
--- NOTE | 2023-10-12 11:55 | XR ---
EXAMINATION TYPE: XR KUB DATE OF EXAM: 10/12/2023 11:35 AM CLINICAL INDICATION:Female, 68 years old with history of abdominal pain; [facility] COMPARISON: 08/28/2023. TECHNIQUE: One radiographic view of the abdomen was obtained. FINDINGS: The bowel gas pattern is nonspecific without dilated loops of small or large bowel. There i s no evidence for organomegaly or pneumoperitoneum. The osseous structures are intact. No abnormal calcifications are present. Fecal material and gas are demonstrated throughout the colon and rectum. Right upper quadrant course significance. IMPRESSION: Nonspecific bowel gas pattern without radiographic evidence for acute process.
[2023-10-12 13:37] VITALS: BP 146/71; PULSE 85; RESP 18
== END 2023-10-12 13:02 | disposition home or self-care (01) ==
LOC: EC 09:55
DX: G89.29 Other chronic pain (principal); R10.13 Epigastric pain; Z88.1 Allergy status to other antibiotic agents; Z88.2 Allergy status to sulfonamides; Z88.5 Allergy status to narcotic agent; Z87.891 Personal history of nicotine dependence; Z90.49 Acquired absence of other specified parts of digestive tract
CPT/HCPCS: 36415; 80053; 82150; 83690; 85025; 74018; 99284; 96374; 96375; J2405; C9113

== ENCOUNTER 2023-10-29 15:36 | Emergency (ER) | payer MEDICARE ==
--- NOTE | 2023-10-29 16:47 | ED ---
General Adult HPI - General Chief complaint: Dizziness Stated complaint: Dizziness Source: patient, RN/MD, RN notes reviewed Mode of arrival: ambulatory Limitations: no limitations - History of Present Illness Initial comments: Patient is a 68-year-old female present to the emergency department with concerns for dizziness. Onset was a couple hours ago. No history of similar s ymptoms previously. Patient has dizziness that feels like room spinning. Symptoms worsen with upright position and head movements. Patient has associated nausea. No vomiting. No confusion or weakness. Symptoms are mild now resting in bed. - Related Data Home Medications Medication Instructions Recorded Confirmed Pantoprazole Sodium [Protonix] 40 mg PO AC-BID 11/12/21 10/12/23 Metoprolol Succinate (ER) [Toprol 25 mg PO DAILY 04/24/23 10/12/23 XL] Pioglitazone [Actos] 15 mg PO DAILY 04/24/23 10/12/23 Triamcinolone 0.1% Cream [Kenalog 1 applic TOPICAL BID PRN 04/24/23 10/12/23 0.1% Cream] rOPINIRole HCL 0.25 mg PO HS 04/24/23 10/12/23 Aspirin EC [Ecotrin Low Dose] 81 mg PO DAILY 10/05/23 10/12/23 Aspirin/Acetaminophen/Caffeine 2 tab PO DAILY PRN 10/05/23 10/12/23 [Excedrin Migraine Caplet] Clotrimazole Cream [Lotrimin Cream] 1 applic TOPICAL DAILY PRN 10/05/23 10/12/23 Dicyclomine [Bentyl] 20 mg PO QID PRN 10/05/23 10/12/23 Diphenoxylate HCl/Atropine 2 tab PO BID PRN 10/05/23 10/12/23 [Lomotil 2.5-0.025 mg Tablet] Losartan [Cozaar] 50 mg PO DAILY 10/05/23 10/12/23 Naproxen Sodium [Aleve] 220 mg PO DAILY PRN 10/05/23 10/12/23 Nystatin 100,000Unit/gm Cream 1 applic TOPICAL BID PRN 10/05/23 10/12/23 [Mycostatin Cream] Metoclopramide HCl [Reglan] 5 mg PO Q6H PRN 10/12/23 10/12/23 Simethicone [Gas-X] 125 mg PO DAILY 10/12/23 10/12/23 Previous Rx's Medication Instructions Recorded Gabapentin [Neurontin] 100 mg PO BID #6 cap 07/28/21 Simethicone 40 mg/0.6 ml Drops 40 mg PO PCHS PRN #30 ml 10/09/23 [Mylicon Drops] Meclizine [Antivert] 25 mg PO TID PRN #12 tab 10/29/23 Allergies Allergy/AdvReac Type Severity Reaction Status Date / Time morphine Allergy Rash/Hives Verified 10/29/23 15:41 sulfamethoxazole AdvReac Abdominal Verified 10/29/23 15:41 [From Bactrim] Pain trimethoprim [From Bactrim] AdvReac Abdominal Verified 10/29/23 15:41 Pain Review of Systems ROS Statement: Those systems with pertinent positive or pertinent negative responses have been documented in the HPI. ROS Other: All systems not noted in ROS Statement are negative. Constitutional: Denies: fever Eyes: Denies: eye pain ENT: Denies: ear pain Respiratory: Denies: cough Cardiovascular: Denies: chest pain Musculoskeletal: Reports: back pain (Chronic) Neurological: Reports: vertigo. 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 bowel resection for obstruction, amalia cataracts, Past Anesthesia/Blood Transfusion Reactions: No Reported Reaction Past Psychological History: No Psychological Hx Reported Smoking Status: Former smoker Past Alcohol Use History: None Reported Past Drug Use History: None Reported - Past Family History Mother Family Medical History: Cancer, CVA/TIA, Pulmonary Embolus Additional Family Medical History / Comment(s): breast cancer Father Family Medical History: CVA/TIA, Myocardial Infarction ([place]) Additional Family Medical History / Comment(s): . Brother(s) Family Medical History: Congestive Heart Failure (CHF) Additional Family Medical History / Comment(s): CABG General Exam Limitations: no limitations General appearance: alert, in no apparent distress Head exam: Present: normocephalic Eye exam: Present: normal appearance Neck exam: Present: normal inspection Respiratory exam: Present: normal lung sounds bilaterally Cardiovascular Exam: Present: regular rate, normal rhythm GI/Abdominal exam: Present: soft. Absent: tenderness Extremities exam: Present: normal inspection Neurological exam: Present: alert, oriented X3, CN II-XII intact. Absent: motor sensory deficit Expanded Neurological exam: Present: protecting the airway Patient oriented to: Present: person, place, time Speech: Present: fluid speech Cranial nerves: EOM's Intact: Normal Sensory exam: Upper Extremity Light Touch: Normal, Lower Extremity Light Touch: Normal Motor strength exam: RUE: 5, LUE: 5, RLE: 5, LLE: 5 Eye Response: (4) open spontaneously Motor Response: (6) obeys commands Verbal Response: (5) oriented Psychiatric exam: Present: normal affect, normal mood Skin exam: Present: normal color Course Vital Signs 10/29/23 10/29/23 15:38 20:12 Temperature 97.3 F L 97.4 F L Pulse Rate 74 73 Respiratory 16 18 Rate Blood Pressure 151/78 164/88 O2 Sat by Pulse 98 98 Oximetry EKG Findings - EKG Results: EKG: interpreted by ERMD, sinus rhythm, normal axis, normal QRS, normal ST/T Medical Decision Making - Medical Decision Making Was pt. sent in by a medical professional or institution (, PA, FINANCIAL ECONOMIST, urgent care, hospital, or shelter...) When possible be specific @ -No Did you speak to anyone other than the patient for history (EMS, parent, family, police, friend...)? What history was obtained from this source @ -No Did you review nursing and triage notes (agree or disagree)? Why? @ -I reviewed and agree with nursing and triage notes Were old charts reviewed (outside hosp., previous admission, EMS record, old EKG, old radiological studies, urgent care reports/EKG's, shelter records)? Report findings @ -No old charts were reviewed Differential Diagnosis (chest pain, altered mental status, abdominal pain women, abdominal pain men, vaginal bleeding, weakness, fever, dyspnea, syncope, headache, dizziness, GI bleed, back pain, seizure, CVA, palpatations, mental health, musculoskeletal)? @ -Differential Dizziness: Benign paroxysmal positional Vertigo, Menieres disease, otitis media, acoustic neuroma, vertebrobasilar insufficiency, cerebellar stroke, encephalitis, hypovolemic, arrhythmia, coronary artery syndrome, anemia, this is not meant to be an all-inclusive list EKG interpreted by me (3pts min.). @ -As above X-rays interpreted by me (1pt min.). @ -None done CT interpreted by me (1pt min.). @ -CT brain shows no acute process. U/S interpreted by me (1pt. min.). @ -None done What testing was considered but not performed or refused? (CT, X-rays, U/S, labs)? Why? @ -None What meds were considered but not given or refused? Why? @ -None Did you discuss the management of the patient with other professionals (professionals i.e. , PA, FINANCIAL ECONOMIST, lab, RT, psych nurse, medical social consultant, sample color maker, teacher, chief knowledge officer, case briefer)? Give summary @ -No Was smoking cessation discussed for >3mins.? @ -No Was critical care preformed (if so, how long)? @ -No Were there social determinants of health that impacted care today? How? (Homelessness, low income, unemployed, alcoholism, drug addiction, transporta tion, low edu. Level, literacy, decrease access to med. care, custodial, rehab)? @ -No Was there de-escalation of care discussed even if they declined (Discuss DNR or withdrawal of care, Hospice)? DNR status @ -No What co-morbidities impacted this encounter? (DM, HTN, Smoking, COPD, CAD, Cancer, CVA, ARF, Chemo, Hep., AIDS, mental health diagnosis, sleep apnea, morbid obesity)? @ -None Was patient admitted / discharged? Hospital course, mention meds given and route, prescriptions, significant lab abnormalities, going to OR and other pertinent info. @ -Patient reevaluated after Antivert and Reglan with some improvement. Patient reevaluated after Valium and scopolamine and feels significantly better and near symptom-free. Patient does request discharge home. Patient has been ambulating well through the emergency department without any difficulty. Undiagnosed new problem with uncertain prognosis? @ -No Drug Therapy requiring intensive monitoring for toxicity (Heparin, Nitro, Insulin, Cardizem)? @ -No Were any procedures done? @ -No Diagnosis/symptom? @ -Dizziness Acute, or Chronic, or Acute on Chronic? @ -Acute Uncomplicated (without systemic symptoms) or Complicated (systemic symptoms)? @ -Default Side effects of treatment? @ -No Exacerbation, Progression, or Severe Exacerbation? @ -No Poses a threat to life or bodily function? How? (Chest pain, [place], [place], pneumonia, PE, COPD, DKA, ARF, appy, cholecystitis, CVA, Diverticulitis, Homicidal, Suicidal, threat to staff... and all critical care pts) @ -No - Lab Data Result diagrams: 10/29/23 17:06 10/29/23 17:06 Lab Results 10/29/23 10/29/23 10/29/23 Range/Units 17:06 17:06 17:06 WBC 7.3 (3.8-10.6) k/uL RBC 3.80 (3.80-5.40) m/uL Hgb 11.2 L (11.4-16.0) gm/dL Hct 35.9 (34.0-46.0) % MCV 94.3 (80.0-100.0) fL MCH 29.3 (25.0-35.0) pg MCHC 31.1 (31.0-37.0) g/dL RDW 15.4 (11.5-15.5) % Plt Count 330 (150-450) k/uL MPV 8.2 Neutrophils % 75 % Lymphocytes % 16 % Monocytes % 6 % Eosinophils % 1 % Basophils % 1 % Neutrophils # 5.5 (1.3-7.7) k/uL Lymphocytes # 1.1 (1.0-4.8) k/uL Monocytes # 0.4 (0-1.0) k/uL Eosinophils # 0.1 (0-0.7) k/uL Basophils # 0.1 (0-0.2) k/uL Hypochromasia Slight PT 11.0 (10.0-12.5) sec INR 1.0 (<1.2) Sodium 139 (137-145) mmol/L Potassium 4.7 (3.5-5.1) mmol/L Chloride 106 (98-107) mmol/L Carbon Dioxide 24 (22-30) mmol/L Anion Gap 9 mmol/L BUN 27 H (7-17) mg/dL Creatinine 1.08 H (0.52-1.04) mg/dL Est GFR (CKD-EPI)AfAm 62 (>60 ml/min/1.73 sqM) Est GFR (CKD-EPI)NonAf 53 (>60 ml/min/1.73 sqM) Glucose 204 H (74-99) mg/dL Calcium 9.6 (8.4-10.2) mg/dL Magnesium 1.3 L (1.6-2.3) mg/dL Total Bilirubin 0.4 (0.2-1.3) mg/dL AST 24 (14-36) U/L ALT 21 (4-34) U/L Alkaline Phosphatase 91 (38-126) U/L Total Protein 6.9 (6.3-8.2) g/dL Albumin 4.3 (3.5-5.0) g/dL Disposition Clinical Impression: Dizziness Disposition: HOME SELF-CARE Condition: Stable Instructions (If sedation given, give patient instructions): Dizziness (ED) Additional Instructions: Please do follow-up with your primary care physician in the next 1 or 2 days for recheck. Prescription for Antivert has been sent to pharmacy. This is all of so available [id number]. Return for increased dizziness, weakness or confusion, worsening or changing symptoms or any other concern Prescriptions: Meclizine [Antivert] 25 mg PO TID PRN #12 tab PRN Reason: dizziness Is patient prescribed a controlled substance at d/c from ED?: No Referrals: Dmitry Lewis MD [Primary Care Provider] - 1-2 days Time of Disposition: 21:03
[2023-10-29] MEDS: METOCLOPRAMIDE 5 MG/ML 2 ML VIAL IVP STA (17:38)
[2023-10-29] MEDS: MECLIZINE 12.5 MG TAB PO STA (17:38)
[2023-10-29 17:44] LABS: Basophils # (A) 0.1 k/uL (0-0.2); Basophils % (A) 1 %; Eosinophils # (A) 0.1 k/uL (0-0.7); Eosinophils % (A) 1 %; HCT 35.9 % (34.0-46.0); HGB 11.2 gm/dL (11.4-16.0); Hypochromasia Slight; Lymphocytes # (A) 1.1 k/uL (1.0-4.8); Lymphocytes % (A) 16 %; MCH 29.3 pg (25.0-35.0); MCHC 31.1 g/dL (31.0-37.0); MCV 94.3 fL (80.0-100.0); Mean Platelet Volume 8.2; Monocytes # (A) 0.4 k/uL (0-1.0); Monocytes % (A) 6 %; Neutrophils # (A) 5.5 k/uL (1.3-7.7); Neutrophils % (A) 75 %; Platelet Count 330 k/uL (150-450); RDW 15.4 % (11.5-15.5); WBC 7.3 k/uL (3.8-10.6)
--- NOTE | 2023-10-29 17:56 | CT ---
EXAMINATION TYPE: CT brain wo con DATE OF EXAM: 10/29/2023 COMPARISON: None HISTORY: dizziness CT DLP: 1098.8 mGycm Automated exposure control for dose reduction was used. Findings: The ventricles, basal cisterns and sulci over the convexities are within normal limits and there is n o mass effect or shift of midline structures. No abnormal density is seen throughout the brain parenchyma and there is no acute intra or extra-axia l hemorrhage. The posterior fossa including the brainstem, fourth ventricle and cerebellar pontine angles appear no rmal. Intraorbital contents appear normal and symmetric. Visualized paranasal sinuses and mastoid air cells are well aerated. The calvarium is intact. IMPRESSION: No significant abnormality seen. There is no acute bleed or mass effect.
[2023-10-29 18:02] LABS: ALT 21 U/L (4-34); AST 24 U/L (14-36); African American GFR (CKD) 62 (>60 ml/min/1.73 sqM); Albumin 4.3 g/dL (3.5-5.0); Alkaline Phosphatase 91 U/L (38-126); Anion Gap 9 mmol/L; Blood Urea Nitrogen 27 mg/dL (7-17); Calcium 9.6 mg/dL (8.4-10.2); Carbon Dioxide 24 mmol/L (22-30); Chloride 106 mmol/L (98-107); Glucose 204 mg/dL (74-99); Magnesium 1.3 mg/dL (1.6-2.3); Non-African American GFR(CKD) 53 (>60 ml/min/1.73 sqM); Potassium 4.7 mmol/L (3.5-5.1); Sodium 139 mmol/L (137-145); Total Bilirubin 0.4 mg/dL (0.2-1.3); Total Protein 6.9 g/dL (6.3-8.2)
[2023-10-29] MEDS: SODIUM CHLORIDE 0.9% 1,000 ML IV STA (20:04)
[2023-10-29] MEDS: SCOPOLAMINE 1 MG/72 HR PATCH TRANSDERM STA (20:06)
[2023-10-29] MEDS: MAGNESIUM OXIDE 400 MG TAB PO STA (20:07)
[2023-10-29 22:23] VITALS: BP 160/87; PULSE 74; RESP 16; TEMP 97.2
== END 2023-10-29 21:40 | disposition home or self-care (01) ==
LOC: EC 15:36
DX: R42 Dizziness and giddiness (principal); Z88.5 Allergy status to narcotic agent; Z88.2 Allergy status to sulfonamides; Z88.1 Allergy status to other antibiotic agents; Z87.891 Personal history of nicotine dependence
CPT/HCPCS: 36415; 93005; 80053; 83735; 85025; 85610; 70450; 99284; 96374; 96375; 96361; J2765; J3360